=== PATIENT | male | born 1965 | race Caucasian/White ===

== ENCOUNTER 2024-04-29 10:01 | Inpatient (IN) | payer MEDICARE, MEDICAID, SELFPAY ==
[2024-04-29] VITALS (16 sets, daily range): BP systolic 89–134; BP diastolic 49–80; PULSE 79–110; RESP 12–22; TEMP 34.7–36.4; O2SAT 82–100; BMI 31.4
--- NOTE | ~2024-04-29 | XR_ITS ---
CLINICAL HISTORY: ETT OGT placement 1 view chest x-ray Comparison: 05/05/2024 Findings: No new consolidation or effusion. Endotracheal tube is 1.5 cm above the andrew. Nasogastric tube tip is below the lower border of the image. The exam is otherwise unchanged. IMPRESSION: 1. No significant change from prior study. This document has been electronically signed by: Chan Baird MD on 05/13/2024 07:12:38
--- NOTE | ~2024-04-29 | XR_ITS ---
EXAMINATION: XR CHEST 1 VIEW HISTORY: ET tube placement, OG tube placement COMPARISON: Comparison is made with the prior examination dated 05/13/2024. FINDINGS: A single AP portable view of the chest performed at 9:35 AM is submitted. An endotracheal tube is noted with its tip approximately 4 cm above the andrew. An orogastric tube is again seen with its tip in the stomach. There are low lung volumes. There is elevation the right hemidiaphragm. There is subsegmental atelectasis at the right lung base. There is new opacification of the left lung base which represent atelectasis, pneumonia, or pleural fluid. There is no pneumothorax or pulmonary vascular congestion. The heart is normal in size. There is degenerative disc disease of the spine. XR/XR chest 1V IMPRESSION: 1. Lines and tubes in place as described. 2. Low lung volumes. New opacification of the left lung base which may represent atelectasis, pneumonia, or pleural fluid. Electronically signed by: Darin Portillo MD 05/16/2024 09:49 AM EDT
--- NOTE | ~2024-04-29 | US_ITS ---
EXAMINATION: US ABDOMEN LIMITED HISTORY: Transaminitis, altered mental status TECHNIQUE: Real-time grayscale ultrasound imaging of the right upper quadrant was performed and images were reviewed. COMPARISON: Correlation is made with an unenhanced CT of the abdomen performed earlier in the day. FINDINGS: Liver: The examination is limited by lack of patient cooperation. The liver appears enlarged and demonstrates diffusely increased echotexture, consistent with steatosis No focal mass or intrahepatic biliary ductal dilatation is identified. There is normal hepatopedal flow in the portal vein. Gallbladder and biliary tree: The gallbladder is unremarkable, without evidence of calculi, wall thickening, or pericholecystic fluid. The patient is sedated and evaluation for a sonographic Jones sign is not possible. The common bile duct is normal in caliber measuring 3 mm. Right Kidney: The right kidney measures 10.1 cm in length. The right kidney is unremarkable, without evidence of masses, hydronephrosis, or calculi. Pancreas: The pancreas is obscured by bowel gas. Abdominal aorta and inferior vena cava: The visualized portions of the abdominal aorta and inferior vena cava are normal in caliber. There is no free fluid in the right upper quadrant. US/US abdomen limited IMPRESSION: Limited examination. Hepatomegaly and hepatic steatosis. Electronically signed by: Darin Portillo MD 04/29/2024 02:27 PM EDT
--- NOTE | ~2024-04-29 | CT_ITS ---
EXAMINATION: CT ABDOMEN AND PELVIS WITHOUT CONTRAST CLINICAL INFORMATION: Hypoxia. Elevated liver enzymes. COMPARISON: None available. TECHNIQUE: Multidetector volumetric imaging was performed from the superior aspect of the liver through the pubic symphysis. Sagittal and coronal reformatted images were obtained on the technologist's workstation. This CT examination was performed using dose optimization techniques as appropriate, variously including the following: *Automated exposure control *Adjustment of mA and/or kV according to patient size (this includes techniques or standardized protocols for targeted exams where dose is matched to indication/reason for exam; i.e. extremities or head) *Use of iterative reconstruction technique. DLP: 1216 mGy centimeter. FINDINGS: Limited elevation of the intra-abdominal organs and vascular structures due to lack of IV contrast. Limited by patient's motion artifact. LUNG BASES: Patchy and confluent attenuation, right lower lung lobe and right middle lobe. LIVER, GALLBLADDER, AND BILIARY TREE: Liver measures 23 cm with decreased attenuation. No intrahepatic biliary ductal dilatation. Gallbladder is dense. No pericholecystic fluid collection or gallbladder wall thickening. No extrahepatic biliary ductal dilatation. PANCREAS: No peripancreatic fluid collection. No main pancreatic ductal dilatation. Punctate calcification in the inferior head of the pancreas. SPLEEN: 6 cm. ADRENAL GLANDS: No nodular lesions. KIDNEYS AND URETERS: No hydronephrosis. No nephrolithiasis. BLADDER: Fluid-filled. GASTROINTESTINAL TRACT: Stool within the large intestine. Few scattered diverticula in the left hemicolon. No intestinal obstruction pattern. No ascites. No pneumatosis intestinalis. No pneumoperitoneum. Appendix is normal. ABDOMINAL WALL: Fat-containing umbilical hernia and small periumbilical fat-containing hernia. LYMPH NODES: Nonspecific prominent lymph nodes in the retroperitoneum and nikhil iliac. VASCULAR: Calcified plaques throughout the abdominal aorta wall and iliac arteries without gross aneurysm. Calcified plaques in the coronary arteries. PELVIC VISCERA: Inadequate evaluation. OSSEOUS STRUCTURES: Multilevel thoracolumbar spondylosis with a shaped curvature apex at L3-4. Multilevel central spinal canal stenosis in the lower lumbar spine on a multifactorial basis degenerative changes in the coxofemoral joints.. CT/CT abdomen pelvis wo IV con IMPRESSION: Concerning multifocal pneumonia right lung. Hepatomegaly and steatosis. Diverticular disease, sigmoid colon. Fat-containing umbilical hernia. Coronary artery disease and atherosclerosis disease. Probable vicarious contrast in the gallbladder. Fleischner guidelines were followed. Electronically signed by: Luis Fernando Bah MD 04/29/2024 01:54 PM EDT RP
--- NOTE | ~2024-04-29 | XR_ITS ---
EXAMINATION: XR CHEST 1 VIEW HISTORY: ogt placement COMPARISON: Comparison is made with the prior examination dated 04/30/2024. FINDINGS: A single AP portable view of the chest performed at 10:02 AM is submitted. An endotracheal tube is again noted and is unchanged in position. An orogastric tube is in place with its tip and sidehole below the diaphragm. There are low lung volumes. There has been improvement in patchy airspace opacity in the right upper and mid lung zones. There is linear subsegmental atelectasis at the right lung base. Minimal patchy opacities at the left lung base are unchanged. There is no pneumothorax. The heart is normal in size. There is degenerative disc disease of the spine. XR/XR chest 1V IMPRESSION: 1. Lines and tubes in place as described. 2. Improvement in patchy opacity in the right mid to upper lung zone. 3. Right basilar subsegmental atelectasis. Minimal patchy opacity at the left lung base. Electronically signed by: Darin Portillo MD 05/03/2024 10:23 AM EDT
--- NOTE | ~2024-04-29 | US_ITS ---
CLINICAL HISTORY: R>L edema Venous duplex ultrasound bilateral upper extremity Comparison: None Findings: Accessible deep venous segments are fully compressible with normal Doppler color flow and spectral tracings. IMPRESSION: 1. Negative for bilateral upper extremity deep vein thrombosis. This document has been electronically signed by: Santos Carr MD on 05/18/2024 06:52:30
--- NOTE | ~2024-04-29 | XR_ITS ---
EXAMINATION: XR CHEST CLINICAL INFORMATION: intubated COMPARISON: 05/20/2024. TECHNIQUE: Frontal view of the chest was obtained. FINDINGS: Endotracheal tube remains in good position. Enteric tube remains in good position. Cardiomegaly, with borders obscured. Low lung volumes persist with elevated right hemidiaphragm. Basilar linear opacities right greater than left, unchanged. Aerated lungs similar, with perhaps mild interstitial edema. Prominence of the central pulmonary vasculature. No perceptible pneumothorax. XR/XR chest 1V IMPRESSION: Lines and tubes in good position. No interval change in lung volumes with stable pulmonary abnormalities, predominantly consisting of mild interstitial edema with bibasilar consolidations. Electronically signed by: Henry Robles MD 05/26/2024 10:20 AM EDT
--- NOTE | ~2024-04-29 | CT_ITS ---
EXAMINATION: CT HEAD WITHOUT CONTRAST CLINICAL INFORMATION: fall head strike COMPARISON: None available. TECHNIQUE: Contiguous axial imaging was performed from the skull base to vertex without intravenous administration of contrast. This CT examination was performed using dose optimization techniques as appropriate, variously including the following: *Automated exposure control *Adjustment of mA and/or kV according to patient size (this includes techniques or standardized protocols for targeted exams where dose is matched to indication/reason for exam; i.e. extremities or head) *Use of iterative reconstruction technique DLP: 1747 mGy-cm FINDINGS: Limited by patient's motion artifact. Acquisition of the brain in segments. No gross acute intracranial hemorrhage, mass effect, midline shift, hydrocephalus or herniation. Forrest-white matter differentiation is normal. No gross hematoma is in the intraconal or extraconal compartments of the orbits. The bony calvarium appears intact. The skull base appears intact. No air-fluid levels in the paranasal sinuses. Tympanic cavities and mastoid cells are aerated. CT/CT head/brain wo IV con IMPRESSION: No acute fracture or bony calvarium. No acute intracranial hemorrhage. Electronically signed by: Luis Fernando Bah MD 04/29/2024 11:46 AM EDT
--- NOTE | ~2024-04-29 | CT_ITS ---
CLINICAL HISTORY: hypoxia CT chest without IV contrast. COMPARISON: XR chest dated 05/20/24 at 16:[address] chest dated 04/29/24 at 12:58 EDT FINDINGS: Endotracheal tube terminates 4.0 cm above the andrew. Enteric tube extends into the abdomen with tip in the distal gastric antrum. No supraclavicular or axillary lymphadenopathy. Elevation of the right hemidiaphragm. Main pulmonary artery is enlarged measuring up to 3.6 cm. This can be associated with pulmonary hypertension. Coronary artery calcifications present within the LAD, circumflex and RCA. Cardiomegaly. No pericardial effusion. Multiple normal-sized mediastinal lymph nodes. Small bilateral pleural effusion with overlying atelectatic collapse of the lower lobes bilaterally. Mild emphysema of the lung apices. Hepatic steatosis. Flowing marginal osteophytes present throughout the thoracic spine. Stable bone island within the T9 vertebral body. IMPRESSION: 1. Small bilateral pleural effusions with overlying complete atelectatic collapse of the lower lobes bilaterally. 2. Cardiomegaly with coronary artery atherosclerosis. Enlarged main pulmonary artery can be associated with pulmonary hypertension. This document has been electronically signed by: Lior Shahid MD on 05/21/2024 16:10:56
--- NOTE | ~2024-04-29 | CT_ITS ---
EXAMINATION: CT CERVICAL SPINE WITHOUT CONTRAST CLINICAL INFORMATION: Status post fall. Facial injury. COMPARISON: None available. TECHNIQUE: Contiguous axial images through the cervical spine using 3 mm collimation with bone and soft tissue algorithm. Sagittal and coronal reformatted images acquired. This CT examination was performed using dose optimization techniques as appropriate, variously including the following: *Automated exposure control *Adjustment of mA and/or kV according to patient size (this includes techniques or standardized protocols for targeted exams where dose is matched to indication/reason for exam; i.e. extremities or head) *Use of iterative reconstruction technique DLP: 556 mGy centimeter. FINDINGS: Limited by patient's motion artifact. Craniocervical junction is intact. Degenerative changes in the periodontal C1 region. Syndesmophyte formation and marginal osteophyte formation resulting in incomplete ankylosis at C5-6. Decreased intervertebral disc height and subchondral cyst formation and endplate sclerosis with marginal osteophyte formation at C5-6. Reverse curvature apex at C4-5. 1 mm anterolisthesis C3-4 likely degenerative. C1 is intact. C2 is intact. C3 is intact. Facet joint hypertrophy. C4 is intact. Right-sided facet joint hypertrophy. C5 is intact. C6 is intact. C7 is intact. No gross prevertebral compartment hematoma. Multilevel central spinal canal stenosis at C4-5 C5-6 levels. Calcified plaques in the carotic arteries. Tympanic cavities and mastoid air cells are aerated. CT/CT cervical spine wo IV con IMPRESSION: Multilevel cervical spondylosis without acute fracture or trauma-related listhesis. Fleischner guidelines were followed. Electronically signed by: Luis Fernando Bah MD 04/29/2024 11:52 AM EDT
--- NOTE | ~2024-04-29 | XR_ITS ---
CLINICAL HISTORY: Intubated and OGT placement 1 view chest x-ray Comparison: Chest x-ray from 04/29/2024 Findings: The endotracheal tube terminates in the midthoracic trachea. Mild mediastinal widening is nonspecific and likely accentuated by AP technique with partial obscuration of the heart borders. New moderate to severe airspace disease of the likely due to pneumonia, right worse than left. Small right pleural effusion noted. No definite pneumothorax in the portable image. Degenerative changes include imaged shoulders and AC joints. IMPRESSION: 1. Endotracheal tube terminates in the midthoracic trachea. 2. Pulmonary opacities concerning for pneumonia, particularly in the right lung. 3. Small right pleural effusion. This document has been electronically signed by: Aldair Thompson MD on 04/30/2024 23:27:01
--- NOTE | ~2024-04-29 | CT_ITS ---
EXAMINATION: CT CHEST WITHOUT IV CONTRAST INDICATION: hypoxia COMPARISON: Correlation is made with an AP portable view of the chest performed earlier in the day. TECHNIQUE: Helical CT scan of the chest was performed without intravenous contrast. Coronal and sagittal reformatted images were generated and reviewed. This CT exam was performed with one or more of the following dose reduction techniques: automated exposure control, adjustment of the mA and/or kV according to patient size, use of iterative reconstruction technique. DLP: 593 mGy-cm CHEST: THYROID: The thyroid is unremarkable. LUNGS: There is moderate patient motion. There is marked elevation of the right hemidiaphragm. There is adjacent linear subsegmental atelectasis. There is a patchy groundglass opacity at the left lung apex which may be inflammatory in nature. MEDIASTINUM: There is no mediastinal lymphadenopathy. ALAINA: Evaluation of the hilar regions is limited by lack of intravenous contrast material. CARDIOVASCULATURE: The heart is normal in size. There is no pericardial effusion. The thoracic aorta is normal in caliber. DEGREE OF CORONARY CALCIFICATION: moderate PLEURA: There is no pleural effusion. No pneumothorax. MAIN AIRWAYS: The mainstem bronchi and proximal branches are patent. AXILLA: There is no axillary lymphadenopathy. BONES AND SOFT TISSUES: There is degenerative disc disease of the spine. A sclerotic focus in the T9 vertebral body may represent a bone island. UPPER ABDOMEN: The visualized portion of the liver demonstrates markedly decreased attenuation, consistent with steatosis. The visualized portions of the spleen and adrenals have an unremarkable unenhanced appearance. CT/CT chest wo IV con IMPRESSION: 1. Marked elevation of the right hemidiaphragm with adjacent subsegmental atelectasis. 2. Patchy groundglass opacity at the left lung apex may be inflammatory in nature. 3. Hepatic steatosis. Electronically signed by: Darin Portillo MD 04/29/2024 02:45 PM EDT
--- NOTE | ~2024-04-29 | XR_ITS ---
EXAMINATION: XR CHEST CLINICAL INFORMATION: Confirmation of OGT and ETT Placement COMPARISON: 05/16/2024. TECHNIQUE: Frontal view of the chest was obtained. FINDINGS: Endotracheal tube is in good position approximately 3 cm proximal to the andrew. There are 2 is well positioned, with the tip and sidehole in the stomach. The cardiac, hilar, and mediastinal contours are normal. Low lung volumes, with patchy opacities in both lower lungs with possible small left effusion. No perceptible pneumothorax. No focal osseous or soft tissue abnormality. XR/XR chest 1V IMPRESSION: 1. Well-positioned endotracheal and enteric tubes. 2. No interval change in low lung volumes, small left effusion, and bilateral lower lung opacities. Electronically signed by: Henry Robles MD 05/20/2024 04:46 PM EDT
--- NOTE | ~2024-04-29 | XR_ITS ---
EXAMINATION: XR CHEST 1 VIEW HISTORY: pneumonia COMPARISON: Comparison is made with the prior examination dated 05/03/2024. FINDINGS: A single AP portable view of the chest performed at 9:12 AM is submitted. Endotracheal and orogastric tubes are unchanged in position. Again seen is elevation of the right hemidiaphragm. There is linear subsegmental atelectasis at both lung bases. There is no pleural effusion, pneumothorax, or pulmonary vascular congestion. The heart is normal in size. There is degenerative disc disease of the spine. XR/XR chest 1V IMPRESSION: 1. Lines and tubes in place without change. 2. Elevated right hemidiaphragm with bibasilar subsegmental atelectasis. Electronically signed by: Darin Portillo MD 05/05/2024 09:31 AM EDT
--- NOTE | ~2024-04-29 | CT_ITS ---
EXAMINATION: CT FACIAL BONES WITHOUT CONTRAST CLINICAL INFORMATION: Status post fall. Facial injury. COMPARISON: None available. TECHNIQUE: Contiguous axial images through the maxillofacial bones using 3 mm collimation with bone and soft tissue algorithm. Sagittal and coronal reformatted images acquired. This CT examination was performed using dose optimization techniques as appropriate, variously including the following: *Automated exposure control *Adjustment of mA and/or kV according to patient size (this includes techniques or standardized protocols for targeted exams where dose is matched to indication/reason for exam; i.e. extremities or head) *Use of iterative reconstruction technique. DLP: 500 mGy centimeter. FINDINGS: Limited by patient's motion artifact. There is a nasal septum defect. No acute cortical disruption in the nasal bones 4 vomer. The orbits are intact. No gross intraconal or extraconal compartment hematoma. The eyeballs are intact. The zygomatic arcs are intact. The maxilla and pterygoid plates are intact. The mandible is intact. Edentulous. No air-fluid levels in the included paranasal sinuses. Tympanic cavities and mastoid cells are aerated. Calcified plaques in the carotic arteries. CT/CT facial bones wo IV con IMPRESSION: No acute maxillofacial bone fracture. Nasal septum defect which could be seen in drug user Electronically signed by: Luis Fernando Bah MD 04/29/2024 01:46 PM EDT
--- NOTE | ~2024-04-29 | MR_ITS ---
EXAMINATION: MR BRAIN WITHOUT CONTRAST CLINICAL INFORMATION: Persistent encephalopathy. COMPARISON: No prior. Correlation made with CT head 04/29/2024. TECHNIQUE: MRI of the brain was obtained using routine sequences without contrast. Examination performed on a Siemens 1.5 Delma high-field scanner. FINDINGS: There is motion artifact on multiple pulsing sequences. This limits the sensitivity of the study. There is no diffusion restriction. There is no intracranial hemorrhage, acute infarction, mass effect, or edema. Ventricles, sulci, and cisterns are normal in size and configuration for patient age. No shift of midline. No abnormal hemosiderin deposition is identified. There are a few scattered punctate and minimally confluent foci of white matter T2 hyperintensity in the periventricular, subcortical, and hemispheric deep white matter, nonspecific. Midline structures appear normally formed. Partial empty sella. Posterior fossa structures appear normal. Cerebellar tonsils are appropriately located. Major flow voids are preserved within the skull base. The globes and orbital contents demonstrate increased CSF within optic nerve sheath complexes. Mild mucosal thickening seen throughout the ethmoid and maxillary sinuses. Fluid in the posterior nasopharynx, nonspecific in the setting of intubation. There are bilateral mastoid and middle ear effusions. Endotracheal tube and enteric tube course through the oropharynx. Extracranial soft tissues demonstrate no abnormalities. No suspicious bone marrow changes are evident. Atlantoaxial joint is normal. MR/MR head/brain wo con IMPRESSION: 1. Somewhat motion limited exam. 2. No evidence of intracranial hemorrhage, acute infarction, mass effect, or edema. 3. Increased CSF in the optic nerve sheath complexes, finding which can be associated with increased intracranial pressure. 4. Mild changes of small vessel ischemia. 5. Bilateral mastoid and middle ear effusions. Electronically signed by: Henry Robles MD 05/19/2024 03:19 PM EDT
--- NOTE | ~2024-04-29 | XR_ITS ---
EXAMINATION: XR CHEST CLINICAL INFORMATION: sob hypoxia COMPARISON: None available. TECHNIQUE: Frontal view of the chest was obtained. FINDINGS: Linear opacities right lower hemithorax. Low lung volume. Elevated right hemidiaphragm. No pneumothorax. Prominence of the interstitial markings. Cardiomediastinal silhouette size is normal. Calcified plaque thoracic aorta. Multilevel thoracic spondylosis.. XR/XR chest 1V IMPRESSION: Mild interstitial lung edema in the correct clinical settings. Superimposed acute small airway disease in the correct clinical settings. Elevated right hemidiaphragm. Electronically signed by: Luis Fernando Bah MD 04/29/2024 11:10 AM EDT
[2024-04-29 10:20] LABS: Glucose, Whole Blood 147 mg/dL (60-115)
--- NOTE | 2024-04-29 10:24 | ECG_ITS ---
Test Reason : sepsis Blood Pressure : */* mmHG Vent. Rate : 80 BPM Atrial Rate : 80 BPM P-R Int : 192 ms QRS Dur : 92 ms QT Int : 358 ms P-R-T Axes : 72 36 -11 degrees QTcB Int : 412 ms Normal sinus rhythm Inferior infarct , age undetermined Abnormal ECG No previous ECGs available Referred By: Kvng Marroquin Electronically Signed By: Ambrosio Dodd
[2024-04-29 10:40] LABS: MANUAL DIFF FLAG NO
[2024-04-29 10:44] LABS: VBG Base Excess 0.7 mmol/L; VBG HCO3 29 mmol/L (22-26); VBG pCO2 64 mmHg; VBG pH 7.26 (7.32-7.43); VBG pO2 31 mmHg
[2024-04-29 10:44] LABS: Venous Blood Gas Refer to POC result
[2024-04-29 10:44] LABS: Basophils Percent Auto 0.4 % (0-2); Hematocrit 39.2 % (42.0-52.0); Hemoglobin 14.1 g/dl (14.0-18.0); Imm Gran Abs Auto 0.03 X10*3/uL (0.00-0.03); Imm Gran Pct Auto 0.5 % (0.0-0.4); Lymphocytes Absolute Auto 0.9 X10*3/uL (1.2-4.9); Lymphocytes Percent Auto 15.4 % (20-40); Mean Corpuscular Hemoglobin 33.4 pg (27.0-33.0); Mean Corpuscular Volume 92.9 fL (80.0-98.0); Mean Platelet Volume 9.9 fL (9.4-12.4); Monocytes Absolute Auto 0.4 X10*3/uL (0.1-1.2); Monocytes Percent Auto 7.4 % (2-11); Neutrophils Absolute Auto 4.2 x10*3/uL (2.0-8.3); Neutrophils Percent Auto 76.3 % (45-73); Platelet Count 148 X10*3/uL (160-400); Red Blood Count 4.22 X10*6/uL (4.60-5.80); Red Cell Distribution Width 15.6 % (11.0-16.0); White Blood Count 5.5 X10*3/uL (4.8-10.8)
[2024-04-29] MEDS: LORazepam 2 MG/ML VIAL 1 MG IVPUSH ×2 (10:46→13:28)
[2024-04-29] MEDS: cefTRIAXone sodium 1 GM VIAL IVPUSH (10:46)
[2024-04-29 10:55] LABS: Ethanol 70 mg/dL; INTERNATIONAL NORM RATIO 1.4 (0.9-1.1); Prothrombin Time 16.6 SEC (10.9-12.4)
[2024-04-29 10:56] LABS: Alanine Aminotransferase 266 U/L (0-40); Albumin Level 3.4 g/dL (3.5-5.0); Alkaline Phosphatase 807 U/L (39-117); Anion Gap 16 (12-20); Aspartate Amino Transferase 670 U/L (5-37); Bilirubin Total 1.5 mg/dL (0.0-1.0); Blood Urea Nitrogen 75 mg/dL (9-16); Carbon Dioxide 27 mmol/L (22-29); Chloride 84 mmol/L (96-108); Creatinine Clr Calc Pharmacy 30.3; Estimated Glomerular Filt Rate 21; Glucose Random 142 mg/dL (60-115); Magnesium 2.3 mg/dL (1.6-2.6); Potassium 4.7 mmol/L (3.3-5.1); Sodium 122 mmol/L (135-145); Total Protein 7.4 g/dL (6.5-8.0)
--- NOTE | 2024-04-29 11:14 | PC.NURSE ---
Pt A+OX3 on arrival to ER; shaking uncontrollably; denies hx of ETOH withdrawal sx's and last drink reported as yesterday; pt reports feeling off for several days, weak and tired; pt reports that he has been eating and doesn't know why poc BG was so low (45); POC BG 147 on arrival in ER; rectal temp 94.5 and pt has cold extremities; 82% RA CATRACHITA@; pt placed on 3 ltr NC with SAO2 now 98%; pCO2 45; Bare Hugger placed on pt on High setting; rectal temp probe in place; BP stable and no IVF's ordered at this time; will cont to monitor/tx per orders
[2024-04-29 11:20] LABS: Lactic Acid 2.6 mmol/L (0.5-2.0)
[2024-04-29] MEDS: SODIUM CHLORIDE 2976 ML IV (12:05)
--- NOTE | 2024-04-29 12:15 | PC.NURSE ---
Unable to pass a temp-sensing catheter; pt states he has a hx of surgery on his prostate; condom catheter applied at this time; IVF's started per orders; temp 96.2 per rectal probe
--- NOTE | 2024-04-29 12:37 | ED.GENADULT ---
HPI - General Adult General Chief complaint: Fall Stated complaint: HYPOGLYCEMIA, FALL, LOW O2 PER EMS Time Seen by Provider: 04/29/24 11:20 Source: patient and EMS Mode of arrival: EMS Limitations: altered mental status History of Present Illness ED Provider: JULIET Marroquin HPI narrative: This is a 58-year-old male history of alcohol use disorder with withdrawals, obesity, diabetes, hypertension, hyperlipidemia who presents via ambulance for fall, shaking, feeling cold and weak. According to EMS he was 82% on room air and he was put on 4 L nasal cannula and O2 improved to 98%. He was also noted to be hypoglycemic with a blood glucose of 45. He was given 15 g of oral glucose and 12.5 g of IV push dextrose by EMS. On arrival to the ED patient was able to answer yes or no questions however was not able to answer complex questions. He dozes off mid conversation. He is unable to provide a history. His family members at the bedside tell me that patient has been drinking monica large amounts of it unclear when his last drink of monica was however he reported to EMS that he has a beer earlier today. There has been no seizure-like activity while in the emergency department or if this morning that has been reported. Does have a history of alcohol withdrawal. When I ask family members if this is normal for him they say yes, but not this bad . Unable to obtain an accurate history from patient or review of systems Related Data Home Medications ?Medication ?Instructions ?Recorded ?Confirmed acamprosate 333 mg tablet,delayed 333 mg PO DAILY 04/29/24 release amlodipine 10 mg tablet 10 mg PO DAILY 04/29/24 clonidine HCl 0.1 mg tablet 0.1 mg PO BID 04/29/24 empagliflozin 10 mg tablet 10 mg PO DAILY 04/29/24 (Jardiance) fluticasone 250 mcg-salmeterol 50 1 ea inhalation BID 04/29/24 mcg/dose blistr powdr for inhalation fluticasone propionate 50 1 spray intranasal DAILY 04/29/24 mcg/actuation nasal spray,suspension glimepiride 4 mg tablet 4 mg PO DAILY 04/29/24 levothyroxine 200 mcg tablet 200 mcg PO DAILY 04/29/24 losartan 50 mg-hydrochlorothiazide 1 tab PO DAILY 04/29/24 12.5 mg tablet metformin 500 mg tablet 500 mg PO BID 04/29/24 metoprolol succinate 100 mg 100 mg PO DAILY 04/29/24 tablet,extended release 24 hr mometasone 0.1 % topical cream 1 appl topical DAILY 04/29/24 montelukast 10 mg tablet 10 mg PO DAILY 04/29/24 omeprazole 20 mg capsule,delayed 20 mg PO DAILY 04/29/24 release pregabalin 75 mg capsule 75 mg PO BID 04/29/24 sertraline 100 mg tablet 100 mg PO DAILY 04/29/24 tamsulosin 0.4 mg capsule 0.4 mg PO DAILY 04/29/24 Allergies Allergy/AdvReac Type Severity Reaction Status Date / Time No Known Allergies Allergy Verified 04/29/24 10:55 Review of Systems Review of Systems: Yes all other systems are reviewed and are negative and Unobtainable due to mental status PMFSH Past Medical History Attestation statement: The following information was validated with the patient. Source: old records reviewed and nursing notes reviewed Social History Social History Alcohol intake: current Alcohol intake frequency: 3 or more drinks per day Alcohol type: beer Smoked in Last 30 Days: Yes Use of substances other than those prescribed or required for medical reasons: No Advance Directives: No Advance Directives Information Provided: Yes Do you have a plan to hurt others: No Plan Physical Exam ED Vital Signs: Vital Signs - 24 hr 04/29/24 10:50 04/29/24 11:10 04/29/24 12:13 Temperature 94.5 F L 94.5 F L 96.2 F L Pulse Rate 79 79 81 Respiratory Rate 22 H 22 H 19 Blood Pressure 113/78 113/78 90/69 Pulse Oximetry 82 L 82 L 98 Oxygen Delivery Method Room Air Room Air Oxygen Flow Rate 3 04/29/24 13:20 04/29/24 14:22 Temperature 97.6 F Pulse Rate 81 Respiratory Rate 14 Blood Pressure 111/56 L 96/65 Pulse Oximetry 96 Oxygen Delivery Method Nasal Cannula Oxygen Flow Rate 3 BMI result Body Mass Index 31.4 Patient hypoxic on room air, with soft pressures. Appearance: Patient responds to painful stimuli. No acute cardiopulmonary distress Head: Normocephalic, atraumatic, no step-offs or deformities + abrasions to face and knees Eyes: Pupils equal, round and reactive to light.? Neck: Normal inspection.? Neck supple.? CVS: Normal heart rate and rhythm.? Pulses normal.? Respiratory: No respiratory distress.? Breath sounds normal.? Abdomen: Soft and nontender.? Skin: Skin warm and dry.? Normal skin color.? Normal skin turgor.? Extremities: No lower extremity edema.? No calf ttp. 5/5 strength to bilateral upper and lower extremities Back: No midline tenderness, no C-spine tenderness, full range of motion, no CVA tenderness bilaterally Neuro: Patient responds to painful stimuli. No acute cardiopulmonary distress unable to perform neurological assessment as patient is barely responsive. Course Reevaluation(s) Reevaluation #1: CBC with no acute findings needing intervention. Chemistry with sodium of 122, IV fluids currently hanging. Patient noted to have an DARRELL BUN of 75, creatinine 3.09 again hanging IV fluids. Unclear if patient's baseline. His lactic acid is 2.6 this is likely secondary to alcohol intoxication. Transaminases elevated in a nearly 2-1 fashion likely secondary to chronic alcohol abuse/hepatitis. Troponin of 43 likely secondary to kidney injury unlikely due to ACS. Patient's coags unremarkable. Ethanol 70. Phenobarbital ordered. Time: 12:52 Reevaluation #2: Repeat lactic 2.7. Repeat troponin 33.9 not meeting tell the. Beta hydroxybutyrate normal. TSH still pending. CT abdomen and pelvis and chest concerning for multifocal pneumonia of the right lung. Hepatomegaly and steatosis. Diverticular disease. Fat containing umbilical hernia. Coronary artery disease and arthrosclerosis. Vicarious contrast in the galladder . No exquisite tenderness over the right upper quadrant. Ultrasound will be obtained. He is being covered with ceftriaxone will add azithromycin. Plan is for hospital admission Time: 14:12 Reevaluation #3: Patient will be admitted to the intensive care unit Time: 15:25 Medications Administered Generic Name Dose Route Start Last Admin Trade Name Freq PRN Reason Stop Dose Admin Azithromycin 500 mg/ Sodium 250 mls @ 125 mls/hr 04/29/24 14:08 04/29/24 14:49 Chloride IV 04/29/24 16:07 125 mls/hr ONCE ONE Administration Dextrose/Sodium Chloride 1,000 mls @ 50 mls/hr 04/29/24 14:45 04/29/24 14:53 D5ns IVCONT 50 mls/hr .Q20H MARKO Administration Discontinued Medications Generic Name Dose Route Start Last Admin Trade Name Fanny PRN Reason Stop Dose Admin Ceftriaxone Sodium 1 gm 04/29/24 10:26 04/29/24 10:46 Ceftriaxone Sodium 1 Gm Vial IVPUSH 04/29/24 10:27 1 gm ONCE ONE Administration Dextrose 25 gm 04/29/24 14:47 04/29/24 14:49 Dextrose 50 % 25 Gm/50 Ml Syringe IVPUSH 04/29/24 14:48 25 gm ONCE ONE Administration Heparin Sodium (Porcine) 5,000 unit 04/29/24 15:00 04/29/24 14:49 Heparin Sodium,Porcine 5,000 Unit/Ml Vial SUBCUT 5,000 unit Q12H MARKO Administration Sodium Chloride 2,976 mls @ 2,976 mls/hr 04/29/24 11:22 04/29/24 13:05 Ns 30 ml/kg infuse over 1 hr (2976 ml) 04/29/24 12:21 Infused IV Infusion .Q1H STA Sodium Chloride 1,000 mls @ 999 mls/hr 04/29/24 13:00 04/29/24 13:29 Ns IV 04/29/24 14:00 999 mls/hr .Q1H1M MARKO Administration Sodium Chloride 1,000 mls @ 100 mls/hr 04/29/24 14:30 04/29/24 14:53 Ns IVCONT Not Given .Q10H MARKO Lorazepam 1 mg 04/29/24 10:26 04/29/24 10:46 Lorazepam 2 Mg/Ml Vial IVPUSH 04/29/24 10:27 1 mg STAT STA Administration Lorazepam 1 mg 04/29/24 12:45 04/29/24 13:28 Lorazepam 2 Mg/Ml Vial IVPUSH 04/29/24 12:46 1 mg STAT STA Administration Phenobarbital Sodium 440 mg 04/29/24 13:00 04/29/24 13:29 Phenobarbital Sodium 130 Mg/Ml Im Once IM 04/29/24 13:01 440 mg ONCE ONE Administration Protocol Medical Decision Making Medical Decision Making MDM Narrative: 58-year-old male presents with altered mental status, weakness status post fall. Physical exam abrasions to face and knees. Regular rate and rhythm. Lungs clear. Abdomen soft nontender nondistended. Patient only responsive to pain and intermittently answering yes or no questions. I am concerned for intracranial hemorrhage. Also concerned for alcohol intoxication and possible withdrawal. Will rule out metabolic derangements. I do not suspect HHS, DKA. Will rule out UTI. Will also rule out traumatic injury to face, chest, abdomen and pelvis. Will rule out trauma to chest, abdomen and pelvis. Due to kidney function will hold on IV contrast Plan labs, imaging, urine Due to vital signs, elevated lactic acid I did cover with empiric antibiotics and a 30 cc/kilos bolus. Differential Diagnosis Differential Diagnoses: The differential diagnosis associated with the presentation includes (I am concerned for intracranial hemorrhage. Also concerned for alcohol intoxication and possible withdrawal. Will rule out metabolic derangements. I do not suspect HHS, DKA. Will rule out UTI. Will also rule out traumatic injury to face, chest, abdomen and pelvis.) Admission/Observation Consideration of admission/observation: Escalation of care including admission/observation considered Lab Data 04/29/24 10:33 04/29/24 10:33 Labs: Lab Results 04/29/24 04/29/24 04/29/24 Range/Units 10:16 10:33 10:39 WBC 5.5 (4.8-10.8) X10*3/uL RBC 4.22 L (4.60-5.80) X10*6/uL Hgb 14.1 (14.0-18.0) g/dl Hct 39.2 L (42.0-52.0) % MCV 92.9 (80.0-98.0) fL MCH 33.4 H (27.0-33.0) pg MCHC 36.0 (31.0-36.0) g/dl RDW 15.6 (11.0-16.0) % Plt Count 148 L (160-400) X10*3/uL MPV 9.9 (9.4-12.4) fL Immature Gran % (Auto) 0.5 H (0.0-0.4) % Neut % (Auto) 76.3 H (45-73) % Lymph % (Auto) 15.4 L (20-40) % Daniels % (Auto) 7.4 (2-11) % Eos % (Auto) 0.0 (0-4) % Baso % (Auto) 0.4 (0-2) % Lymph # (Auto) 0.9 L (1.2-4.9) X10*3/uL Daniels # (Auto) 0.4 (0.1-1.2) X10*3/uL Eos # (Auto) 0.0 (0.0-0.4) X10*3/uL Baso # (Auto) 0.0 (0.0-0.2) X10*3/uL Abs Immat Gran (auto) 0.03 (0.00-0.03) X10*3/uL Absolute Neuts (auto) 4.2 (2.0-8.3) x10*3/uL Absolute Nucleated RBC 0.000 (0.0-0.012) X10*3/uL Nucleated RBC % (auto) 0.0 (0.0-0.2) /100WBC PT 16.6 H (10.9-12.4) SEC INR 1.4 H (0.9-1.1) VBG pH 7.26 L (7.32-7.43) VBG pCO2 64 mmHg VBG pO2 31 mmHg VBG HCO3 29 H (22-26) mmol/L VBG O2 Saturation 40.0 % VBG Base Excess 0.7 mmol/L Sodium 122 L (135-145) mmol/L Potassium 4.7 (3.3-5.1) mmol/L Chloride 84 L (96-108) mmol/L Carbon Dioxide 27 (22-29) mmol/L Anion Gap 16 (12-20) BUN 75 H (9-16) mg/dL Creatinine 3.09 H (0.5-1.4) mg/dL Estim Creat Clear Calc 30.3 Estimated GFR 21 POC Glucose 147 H (60-115) mg/dL Random Glucose 142 H (60-115) mg/dL Lactic Acid 2.6 H* (0.5-2.0) mmol/L Lactic Acid F/U @ 2Hr (0.5-2.0) mmol/L Calcium 8.0 L (8.4-10.2) mg/dL Magnesium 2.3 (1.6-2.6) mg/dL Total Bilirubin 1.5 H (0.0-1.0) mg/dL AST 670 H (5-37) U/L ALT 266 H (0-40) U/L Alkaline Phosphatase 807 H (39-117) U/L Total Creatine Kinase 505 H (38-174) U/L Troponin I High Sens 43.0 H (<3.5-35.0) ng/L Total Protein 7.4 (6.5-8.0) g/dL Albumin 3.4 L (3.5-5.0) g/dL Beta-Hydroxybutyrate (0.02-0.27) mmol/L TSH (0.32-4.0) uIU/mL Urine Color Urine Appearance Urine pH (5.0-9.0) Ur Specific [place] (1.005-1.025) Urine Protein (Neg-Trace) mg/dL Urine Glucose (UA) (Negative) mg/dL Urine Ketones (Negative) mg/dL Urine Blood (Negative) Urine Nitrite (Negative) Ur Leukocyte Esterase (Negative) Urine RBC (0-2) /HPF Urine WBC (0-5) /HPF Ur Squamous Epith Cells (0-2) /HPF Urine Bacteria (None Seen) Hyaline Casts (0-2) /LPF Granular Casts Urine Opiates Screen (Not Detect) Ur Buprenorphine Scrn (Not Detect) ng/mL Ur Oxycodone Screen (Not Detect) ng/mL Urine Methadone Screen (Not Detect) ng/mL Urine Fentanyl Screen (Not Detect) Ur Barbiturates Screen (Not Detect) Ur Phencyclidine Scrn (Not Detect) Ur Amphetamines Screen (Not Detect) U Benzodiazepines Scrn (Not Detect) Urine Cocaine Screen (Not Detect) U Marijuana (THC) Screen (Not Detect) Ethyl Alcohol 70 mg/dL 04/29/24 04/29/24 04/29/24 Range/Units 13:25 13:25 13:39 WBC (4.8-10.8) X10*3/uL RBC (4.60-5.80) X10*6/uL Hgb (14.0-18.0) g/dl Hct (42.0-52.0) % MCV (80.0-98.0) fL MCH (27.0-33.0) pg MCHC (31.0-36.0) g/dl RDW (11.0-16.0) % Plt Count (160-400) X10*3/uL MPV (9.4-12.4) fL Immature Gran % (Auto) (0.0-0.4) % Neut % (Auto) (45-73) % Lymph % (Auto) (20-40) % Daniels % (Auto) (2-11) % Eos % (Auto) (0-4) % Baso % (Auto) (0-2) % Lymph # (Auto) (1.2-4.9) X10*3/uL Daniels # (Auto) (0.1-1.2) X10*3/uL Eos # (Auto) (0.0-0.4) X10*3/uL Baso # (Auto) (0.0-0.2) X10*3/uL Abs Immat Gran (auto) (0.00-0.03) X10*3/uL Absolute Neuts (auto) (2.0-8.3) x10*3/uL Absolute Nucleated RBC (0.0-0.012) X10*3/uL Nucleated RBC % (auto) (0.0-0.2) /100WBC PT (10.9-12.4) SEC INR (0.9-1.1) VBG pH (7.32-7.43) VBG pCO2 mmHg VBG pO2 mmHg VBG HCO3 (22-26) mmol/L VBG O2 Saturation % VBG Base Excess mmol/L Sodium (135-145) mmol/L Potassium (3.3-5.1) mmol/L Chloride (96-108) mmol/L Carbon Dioxide (22-29) mmol/L Anion Gap (12-20) BUN (9-16) mg/dL Creatinine (0.5-1.4) mg/dL Estim Creat Clear Calc Estimated GFR POC Glucose (60-115) mg/dL Random Glucose (60-115) mg/dL Lactic Acid (0.5-2.0) mmol/L Lactic Acid F/U @ 2Hr 2.7 H* (0.5-2.0) mmol/L Calcium (8.4-10.2) mg/dL Magnesium (1.6-2.6) mg/dL Total Bilirubin (0.0-1.0) mg/dL AST (5-37) U/L ALT (0-40) U/L Alkaline Phosphatase (39-117) U/L Total Creatine Kinase (38-174) U/L Troponin I High Sens 35.3 H 33.9 (<3.5-35.0) ng/L Total Protein (6.5-8.0) g/dL Albumin (3.5-5.0) g/dL Beta-Hydroxybutyrate 0.12 (0.02-0.27) mmol/L TSH 0.73 (0.32-4.0) uIU/mL Urine Color Yellow Urine Appearance Clear Urine pH 5.0 (5.0-9.0) Ur Specific [place] 1.015 (1.005-1.025) Urine Protein 30 (1+) H (Neg-Trace) mg/dL Urine Glucose (UA) Negative (Negative) mg/dL Urine Ketones Negative (Negative) mg/dL Urine Blood Small (1+) H (Negative) Urine Nitrite Negative (Negative) Ur Leukocyte Esterase Negative (Negative) Urine RBC 0-2 (0-2) /HPF Urine WBC 0-5 (0-5) /HPF Ur Squamous Epith Cells 0-2 (0-2) /HPF Urine Bacteria None Seen (None Seen) Hyaline Casts 3-5 (0-2) /LPF Granular Casts Present Urine Opiates Screen Not Detected (Not Detect) Ur Buprenorphine Scrn Not Detected (Not Detect) ng/mL Ur Oxycodone Screen Not Detected (Not Detect) ng/mL Urine Methadone Screen Not Detected (Not Detect) ng/mL Urine Fentanyl Screen Not Detected (Not Detect) Ur Barbiturates Screen Not Detected (Not Detect) Ur Phencyclidine Scrn Not Detected (Not Detect) Ur Amphetamines Screen Not Detected (Not Detect) U Benzodiazepines Scrn Not Detected (Not Detect) Urine Cocaine Screen Not Detected (Not Detect) U Marijuana (THC) Screen Not Detected (Not Detect) Ethyl Alcohol mg/dL Critical Care Time Critical Care Time Critical Care Time: Yes Total Critical Care Time: 35 Attestation: I attest to this time spent taking care of the patient, obtaining history, physical, reviewing labs, imaging, treatment of patients condition +/- specialist/hospitalist consult +/- procedure Discharge Plan Discharge Clinical Impression: Sepsis, Pneumonia, Alcohol abuse with withdrawal Patient Disposition: Still a Patient
[2024-04-29 12:41] LABS: Reflex Lactate? Lactic Acid Added
[2024-04-29] MEDS: 0.9 % Sodium Chloride 1,000 ML 999 ML IV (13:29)
[2024-04-29] MEDS: PHENobarbitaL sodium 130 MG/ML IM ONCE 440 MG IM (13:29)
[2024-04-29 13:54] LABS: Appearance Urine Clear; Color Urine Yellow; Glucose Urine UA Negative (Negative); Leukocyte Esterase Urine Negative (Negative); Nitrite Urine Negative (Negative); Specific Gravity - Urine 1.015 (1.005-1.025); UMIC TRIGGER UACC YES; Urine Blood Small (1+) (Negative); Urine Ketones Negative (Negative); Urine Protein 30 (1+) mg/dL (Neg-Trace)
--- NOTE | 2024-04-29 13:55 | PC.NURSE ---
Pt very somnolent, unable to answer most questions at this time; this occurred after IVP Ativan gv per orders for ETOH withdrawal; pt was A+Ox2 on arrival to ER, unsure about date; Provider made aware of mental status at this time
[2024-04-29 13:56] LABS: Beta-Hydroxybutyrate 0.12 mmol/L (0.02-0.27); ~Lactic Acid-LAB USE ONLY 2.7 mmol/L (0.5-2.0)
[2024-04-29 13:58] LABS: Troponin-I High Sensitivity 33.9 ng/L (<3.5-35.0)
[2024-04-29 13:59] LABS: Troponin-I High Sensitivity 35.3 ng/L (<3.5-35.0)
[2024-04-29 14:06] LABS: Bacteria Urine None Seen (None Seen); Granular Casts Urine Present; RBC Urine 0-2 /HPF (0-2); Squamous Epithelial Cell Urine 0-2 /HPF (0-2); WBC Urine 0-5 /HPF (0-5)
[2024-04-29 14:13] LABS: TSH reflex Free T4 0.73 uIU/mL (0.32-4.0)
[2024-04-29 14:15] LABS: Amphetamine Screen Urine Not Detected (Not Detect); Barbiturates, Urine Not Detected (Not Detect); Benzodiazepines Screen Urine Not Detected (Not Detect); Buprenorphine Scr Not Detected (Not Detect); Cannabinoid Screen Urine Not Detected (Not Detect); Cocaine Screen Urine Not Detected (Not Detect); Fentanyl, urine Not Detected (Not Detect); Methadone Screen, Urine Not Detected (Not Detect); Opiate Screen Urine Not Detected (Not Detect); Oxycodone Screen Urine Not Detected (Not Detect); Phencyclidine Screen Urine Not Detected (Not Detect)
--- NOTE | 2024-04-29 14:25 | PC.NURSE ---
Pt's rectal temp 97.6 at this time; Dominik Bishop dc'd at this time
--- NOTE | 2024-04-29 14:30 | P.HPHOSP_ITS ---
History of Present Illness Date of Service: 04/29/24 Attending physician on admission: Sonido Palmer Chief Complaint: AMS, SEPSIS PMFSH Social History Alcohol intake: current Alcohol intake frequency: 3 or more drinks per day Alcohol type: beer Smoked in Last 30 Days: Yes Use of substances other than those prescribed or required for medical reasons: No Advance Directives: No Advance Directives Information Provided: Yes Do you have a plan to hurt others: No Plan Meds Allergies Allergy/AdvReac Type Severity Reaction Status Date / Time No Known Allergies Allergy Verified 04/29/24 10:55 Active Medications: Current Medications Albuterol/Ipratropium (Albuterol/Iprat 2.5/0.5mg 3 Ml Ampul.Neb) 3 ml INHALE Q4H PRN PRN Reason: Shortness of Breath/Wheezing Heparin Sodium (Porcine) (Heparin Sodium,Porcine 5,000 Unit/Ml Vial) 5,000 unit SUBCUT Q12H MARKO Azithromycin 500 mg/ Sodium (Chloride) 250 mls @ 125 mls/hr IV ONCE ONE Stop: 04/29/24 16:07 Sodium Chloride (Ns) 1,000 mls @ 100 mls/hr IVCONT .Q10H MARKO Magnesium Hydroxide (Milk Of Magnesia 30 Ml Oral.Susp) 30 ml PO DAILY PRN PRN Reason: Constipation Pharmacy Consult (Consult Rx Etoh Phenob Im/Po) 1 each MISCELLANE ONCE PRN; Protocol PRN Reason: Consult order Phenobarbital (Phenobarbital 15 Mg Tablet) 45 mg PO BID MARKO; Protocol Stop: 05/01/24 21:01 Phenobarbital (Phenobarbital 30 Mg Tablet) 30 mg PO BID MARKO; Protocol Stop: 05/03/24 21:01 Phenobarbital (Phenobarbital 30 Mg Tablet) 30 mg PO DAILY MARKO; Protocol Stop: 05/05/24 09:01 Phenobarbital Sodium (Phenobarbital Sodium 130 Mg/Ml Vial Im Q3hx2) 330 mg IM Q3H MARKO; Protocol Stop: 04/29/24 19:01 Senna (Sennosides 8.6 Mg Tablet) 17.2 mg PO BEDTIME MARKO Sodium Chloride (0.9 % Sodium Chloride Flush 3 Ml Syringe) 3 ml IVFLUSH QSHIFT [facility] Home Medications ?Medication ?Instructions ?Recorded ?Confirmed ?Last Taken ?Type acamprosate 333 mg tablet,delayed 333 mg PO DAILY 04/29/24 Unknown History release amlodipine 10 mg tablet 10 mg PO DAILY 04/29/24 Unknown History clonidine HCl 0.1 mg tablet 0.1 mg PO BID 04/29/24 Unknown History empagliflozin 10 mg tablet 10 mg PO DAILY 04/29/24 Unknown History (Jardiance) fluticasone 250 mcg-salmeterol 50 1 ea inhalation BID 04/29/24 Unknown History mcg/dose blistr powdr for inhalation fluticasone propionate 50 1 spray intranasal DAILY 04/29/24 Unknown History mcg/actuation nasal spray,suspension glimepiride 4 mg tablet 4 mg PO DAILY 04/29/24 Unknown History levothyroxine 200 mcg tablet 200 mcg PO DAILY 04/29/24 Unknown History losartan 50 mg-hydrochlorothiazide 1 tab PO DAILY 04/29/24 Unknown History 12.5 mg tablet metformin 500 mg tablet 500 mg PO BID 04/29/24 Unknown History metoprolol succinate 100 mg 100 mg PO DAILY 04/29/24 Unknown History tablet,extended release 24 hr mometasone 0.1 % topical cream 1 appl topical DAILY 04/29/24 Unknown History montelukast 10 mg tablet 10 mg PO DAILY 04/29/24 Unknown History omeprazole 20 mg capsule,delayed 20 mg PO DAILY 04/29/24 Unknown History release pregabalin 75 mg capsule 75 mg PO BID 04/29/24 Unknown History sertraline 100 mg tablet 100 mg PO DAILY 04/29/24 Unknown History tamsulosin 0.4 mg capsule 0.4 mg PO DAILY 04/29/24 Unknown History Physical Exam 2 Vital Signs and Narrative: Vital Signs: Last Vital Signs Temp 97.6 F 04/29/24 13:20 Pulse 81 04/29/24 13:20 Resp 14 04/29/24 13:20 BP 96/65 04/29/24 14:22 Pulse Ox 96 04/29/24 13:20 O2 Del Method Nasal Cannula 04/29/24 13:20 O2 Flow Rate 3 04/29/24 13:20 BMI result Body Mass Index 31.4 Results Labs 04/29/24 10:33 04/29/24 10:33 Labs: Laboratory Results - last 24 hr 04/29/24 04/29/24 04/29/24 10:16 10:33 10:39 MCV 92.9 MCH 33.4 H MCHC 36.0 RDW 15.6 Plt Count 148 L MPV 9.9 Immature Gran % (Auto) 0.5 H Neut % (Auto) 76.3 H Lymph % (Auto) 15.4 L [place] % (Auto) 7.4 Eos % (Auto) 0.0 Baso % (Auto) 0.4 Lymph # (Auto) 0.9 L [place] # (Auto) 0.4 Eos # (Auto) 0.0 Baso # (Auto) 0.0 Abs Immat Gran (auto) 0.03 Absolute Neuts (auto) 4.2 Absolute Nucleated RBC 0.000 Nucleated RBC % (auto) 0.0 PT 16.6 H INR 1.4 H VBG pH 7.26 L VBG pCO2 64 VBG pO2 31 VBG HCO3 29 H VBG O2 Saturation 40.0 VBG Base Excess 0.7 Anion Gap 16 Estim Creat Clear Calc 30.3 Estimated GFR 21 POC Glucose 147 H Random Glucose 142 H Lactic Acid 2.6 H* Lactic Acid F/U @ 2Hr Calcium 8.0 L Magnesium 2.3 Total Bilirubin 1.5 H AST 670 H ALT 266 H Alkaline Phosphatase 807 H Total Protein 7.4 Albumin 3.4 L Beta-Hydroxybutyrate TSH Urine Color Urine Appearance Urine pH Ur Specific [place] Urine Protein Urine Glucose (UA) Urine Ketones Urine Blood Urine Nitrite Ur Leukocyte Esterase Urine RBC Urine WBC Ur Squamous Epith Cells Urine Bacteria Hyaline Casts Granular Casts Urine Opiates Screen Ur Buprenorphine Scrn Ur Oxycodone Screen Urine Methadone Screen Urine Fentanyl Screen Ur Barbiturates Screen Ur Phencyclidine Scrn Ur Amphetamines Screen U Benzodiazepines Scrn Urine Cocaine Screen U Marijuana (THC) Screen Ethyl Alcohol 70 04/29/24 04/29/24 13:25 13:39 MCV MCH MCHC RDW Plt Count MPV Immature Gran % (Auto) Neut % (Auto) Lymph % (Auto) [place] % (Auto) Eos % (Auto) Baso % (Auto) Lymph # (Auto) [place] # (Auto) Eos # (Auto) Baso # (Auto) Abs Immat Gran (auto) Absolute Neuts (auto) Absolute Nucleated RBC Nucleated RBC % (auto) PT INR VBG pH VBG pCO2 VBG pO2 VBG HCO3 VBG O2 Saturation VBG Base Excess Anion Gap Estim Creat Clear Calc Estimated GFR POC Glucose Random Glucose Lactic Acid Lactic Acid F/U @ 2Hr 2.7 H* Calcium Magnesium Total Bilirubin AST ALT Alkaline Phosphatase Total Protein Albumin Beta-Hydroxybutyrate 0.12 TSH 0.73 Urine Color Yellow Urine Appearance Clear Urine pH 5.0 Ur Specific [place] 1.015 Urine Protein 30 (1+) H Urine Glucose (UA) Negative Urine Ketones Negative Urine Blood Small (1+) H Urine Nitrite Negative Ur Leukocyte Esterase Negative Urine RBC 0-2 Urine WBC 0-5 Ur Squamous Epith Cells 0-2 Urine Bacteria None Seen Hyaline Casts 3-5 Granular Casts Present Urine Opiates Screen Not Detected Ur Buprenorphine Scrn Not Detected Ur Oxycodone Screen Not Detected Urine Methadone Screen Not Detected Urine Fentanyl Screen Not Detected Ur Barbiturates Screen Not Detected Ur Phencyclidine Scrn Not Detected Ur Amphetamines Screen Not Detected U Benzodiazepines Scrn Not Detected Urine Cocaine Screen Not Detected U Marijuana (THC) Screen Not Detected Ethyl Alcohol Imaging Radiologist's Impressions: Impressions Cervical Spine CT 04/29/24 10:26 IMPRESSION: Multilevel cervical spondylosis without acute fracture or trauma-related listhesis. Fleischner guidelines were followed. Electronically signed by: Luis Fernando Bah MD 04/29/2024 11:52 AM EDT RP Chest X-Ray 04/29/24 10:26 IMPRESSION: Mild interstitial lung edema in the correct clinical settings. Superimposed acute small airway disease in the correct clinical settings. Elevated right hemidiaphragm. Electronically signed by: Luis Fernando Bah MD 04/29/2024 11:10 AM EDT RP Head CT 04/29/24 11:12 IMPRESSION: No acute fracture or bony calvarium. No acute intracranial hemorrhage. Electronically signed by: Luis Fernando Bah MD 04/29/2024 11:46 AM EDT RP Face CT 04/29/24 12:43 IMPRESSION: No acute maxillofacial bone fracture. Nasal septum defect which could be seen in drug user Electronically signed by: Luis Fernando Bah MD 04/29/2024 01:46 PM EDT RP Abdomen/Pelvis CT 04/29/24 12:58 IMPRESSION: Concerning multifocal pneumonia right lung. Hepatomegaly and steatosis. Diverticular disease, sigmoid colon. Fat-containing umbilical hernia. Coronary artery disease and atherosclerosis disease. Probable vicarious contrast in the gallbladder. Fleischner guidelines were followed. Electronically signed by: Luis Fernando Bah MD 04/29/2024 01:54 PM EDT Assessment and Plan (1) Sepsis: Status: Acute (2) Multifocal pneumonia: Status: Acute (3) Status post fall: Status: Acute (4) DARRELL (acute kidney injury): Status: Acute (5) Hypoglycemia: Status: Acute (6) Hyponatremia: Status: Acute (7) Transaminitis: Status: Acute (8) ETOH abuse: Status: Acute (9) Thrombocytopenia: Status: Acute (10) Spondylosis: Status: Acute (11) Nasal septal defect: Status: Acute Plan Sepsis Mutlifocal PNA S/P fall DARRELL Hypoglycemia Hyponatremia Transamitis ETOH abuse Thrombocytopenia Spondylosis Nasal Septal Defect Quality VTE VTE Risk Level:: Medical - moderate - high VTE Device Contraindication: N/A - Device Ordered VTE Drug Contraindication: N/A - Med Ordered
[2024-04-29] MEDS: Heparin Sodium,Porcine 5,000 UNIT/ML VIAL 5000 UNIT SUBCUT ×2 (14:49→22:37)
[2024-04-29] MEDS: Dextrose 50 % 25 GM/50 ML SYRINGE IVPUSH ×3 (14:49→20:06)
[2024-04-29] MEDS: Azithromycin 500 MG in 0.9 % Sodium Chloride 250 ML 125 MG IV (14:49)
[2024-04-29] MEDS: Dextrose 5 % and 0.9 % NaCl 1,000 ML 50 ML IVCONT (14:53)
--- NOTE | 2024-04-29 14:57 | PC.NURSE ---
Pt's repeat BG POC 38; PA made aware; 1 amp D50% gv IVP and D% NS started at 50ml/hr; NS at 100ml/hr DC'd at this time; will cont to monitor/tx per orders
[2024-04-29 15:06] LABS: Glucose, Whole Blood 38 mg/dL (60-115)
[2024-04-29 15:12] LABS: Glucose, Whole Blood 110 mg/dL (60-115)
[2024-04-29 15:32] LABS: Reflex Lactate? 2 Y
--- NOTE | 2024-04-29 15:41 | PM.CCHP ---
History of Present Illness Date of Service: 04/29/24 Chief Complaint: Alcohol withdrawal, hyponatremia, acute renal failure 58-year-old gentleman with underlying alcohol dependence, obesity, diabetes mellitus being admitted for hyperglycemia and alcohol withdrawal on background of acute metabolic acidosis with acute renal failure and hyponatremia likely secondary to beer potomania Review of Systems Review of Systems: Yes Unobtainable due to mental status PMFSH Social History Social History Alcohol intake: current Alcohol intake frequency: 3 or more drinks per day Alcohol type: beer Smoked in Last 30 Days: Yes Use of substances other than those prescribed or required for medical reasons: No Advance Directives: No Advance Directives Information Provided: Yes Do you have a plan to hurt others: No Plan Meds Allergies Allergy/AdvReac Type Severity Reaction Status Date / Time No Known Allergies Allergy Verified 04/29/24 10:55 Active Medications: Current Medications Heparin Sodium (Porcine) (Heparin Sodium,Porcine 5,000 Unit/Ml Vial) 5,000 unit SUBCUT Q8H MARKO Azithromycin 500 mg/ Sodium (Chloride) 250 mls @ 125 mls/hr IV ONCE ONE Stop: 04/29/24 16:07 Last Admin: 04/29/24 14:49 Dose: 125 mls/hr Pharmacy Consult (Consult Rx Etoh Phenob Im/Po) 1 each MISCELLANE ONCE PRN; Protocol PRN Reason: Consult order Phenobarbital Sodium (Phenobarbital Sodium 130 Mg/Ml Vial Im Q3hx2) 330 mg IM Q3H MARKO; Protocol Stop: 04/29/24 19:01 Home Medications ?Medication ?Instructions ?Recorded ?Confirmed ?Last Taken ?Type acamprosate 333 mg tablet,delayed 333 mg PO DAILY 04/29/24 Unknown History release amlodipine 10 mg tablet 10 mg PO DAILY 04/29/24 Unknown History clonidine HCl 0.1 mg tablet 0.1 mg PO BID 04/29/24 Unknown History empagliflozin 10 mg tablet 10 mg PO DAILY 04/29/24 Unknown History (Jardiance) fluticasone 250 mcg-salmeterol 50 1 ea inhalation BID 04/29/24 Unknown History mcg/dose blistr powdr for inhalation fluticasone propionate 50 1 spray intranasal DAILY 04/29/24 Unknown History mcg/actuation nasal spray,suspension glimepiride 4 mg tablet 4 mg PO DAILY 04/29/24 Unknown History insulin glargine 100 unit/mL (3 10 unit subcut BEDTIME 04/29/24 04/29/24 Unknown History mL) subcutaneous pen (Lantus Solostar U-100 Insulin) levothyroxine 200 mcg tablet 200 mcg PO DAILY 04/29/24 Unknown History losartan 50 mg-hydrochlorothiazide 1 tab PO DAILY 04/29/24 Unknown History 12.5 mg tablet metformin 500 mg tablet 500 mg PO BID 04/29/24 Unknown History metoprolol succinate 100 mg 100 mg PO DAILY 04/29/24 Unknown History tablet,extended release 24 hr mometasone 0.1 % topical cream 1 appl topical DAILY 04/29/24 Unknown History montelukast 10 mg tablet 10 mg PO DAILY 04/29/24 Unknown History omeprazole 20 mg capsule,delayed 20 mg PO DAILY 04/29/24 Unknown History release pregabalin 75 mg capsule 75 mg PO BID 04/29/24 Unknown History sertraline 100 mg tablet 100 mg PO DAILY 04/29/24 Unknown History tamsulosin 0.4 mg capsule 0.4 mg PO DAILY 04/29/24 Unknown History Physical Exam Vital Signs: Vital Signs: Last Vital Signs Temp 97.6 F 04/29/24 13:20 Pulse 81 04/29/24 13:20 Resp 14 04/29/24 13:20 BP 96/65 04/29/24 14:22 Pulse Ox 96 04/29/24 13:20 O2 Del Method Nasal Cannula 04/29/24 13:20 O2 Flow Rate 3 04/29/24 13:20 BMI result Body Mass Index 31.4 Const: General: no acute distress and lethargic (Arousable, confused) Orientation/consciousness: lethargic (Arousable, confused) Eyes: Sclerae: sclerae normal EOM: EOMs intact bilaterally Neck: Neck: Yes no lymphadenopathy, Yes trachea midline and Yes supple Resp: Effort & Inspection: normal respiratory effort and no respiratory distress Auscultation: crackles (Mild bilateral) Cardio: Rate: regular rate Rhythm: regular rhythm Heart sounds: no gallops, no murmurs and no rubs GI: Palpation (GI): Soft to palpation and Other GI palpation findings present ( Nontender) Auscultation: normal bowel sounds Extrem: General: Yes no pedal edema, No clubbing and No cyanosis Results Labs 04/29/24 10:33 04/29/24 10:33 Labs: Laboratory Results - last 24 hr 04/29/24 04/29/24 04/29/24 10:16 10:33 10:39 MCV 92.9 MCH 33.4 H MCHC 36.0 RDW 15.6 Plt Count 148 L MPV 9.9 Immature Gran % (Auto) 0.5 H Neut % (Auto) 76.3 H Lymph % (Auto) 15.4 L [place] % (Auto) 7.4 Eos % (Auto) 0.0 Baso % (Auto) 0.4 Lymph # (Auto) 0.9 L [place] # (Auto) 0.4 Eos # (Auto) 0.0 Baso # (Auto) 0.0 Abs Immat Gran (auto) 0.03 Absolute Neuts (auto) 4.2 Absolute Nucleated RBC 0.000 Nucleated RBC % (auto) 0.0 PT 16.6 H INR 1.4 H VBG pH 7.26 L VBG pCO2 64 VBG pO2 31 VBG HCO3 29 H VBG O2 Saturation 40.0 VBG Base Excess 0.7 Anion Gap 16 Estim Creat Clear Calc 30.3 Estimated GFR 21 POC Glucose 147 H Random Glucose 142 H Lactic Acid 2.6 H* Lactic Acid F/U @ 2Hr Calcium 8.0 L Magnesium 2.3 Total Bilirubin 1.5 H AST 670 H ALT 266 H Alkaline Phosphatase 807 H Total Creatine Kinase 505 H Total Protein 7.4 Albumin 3.4 L Beta-Hydroxybutyrate TSH Urine Color Urine Appearance Urine pH Ur Specific [place] Urine Protein Urine Glucose (UA) Urine Ketones Urine Blood Urine Nitrite Ur Leukocyte Esterase Urine RBC Urine WBC Ur Squamous Epith Cells Urine Bacteria Hyaline Casts Granular Casts Urine Opiates Screen Ur Buprenorphine Scrn Ur Oxycodone Screen Urine Methadone Screen Urine Fentanyl Screen Ur Barbiturates Screen Ur Phencyclidine Scrn Ur Amphetamines Screen U Benzodiazepines Scrn Urine Cocaine Screen U Marijuana (THC) Screen Ethyl Alcohol 70 04/29/24 04/29/24 04/29/24 13:25 13:39 14:38 MCV MCH MCHC RDW Plt Count MPV Immature Gran % (Auto) Neut % (Auto) Lymph % (Auto) [place] % (Auto) Eos % (Auto) Baso % (Auto) Lymph # (Auto) [place] # (Auto) Eos # (Auto) Baso # (Auto) Abs Immat Gran (auto) Absolute Neuts (auto) Absolute Nucleated RBC Nucleated RBC % (auto) PT INR VBG pH VBG pCO2 VBG pO2 VBG HCO3 VBG O2 Saturation VBG Base Excess Anion Gap Estim Creat Clear Calc Estimated GFR POC Glucose 38 L* Random Glucose Lactic Acid Lactic Acid F/U @ 2Hr 2.7 H* Calcium Magnesium Total Bilirubin AST ALT Alkaline Phosphatase Total Creatine Kinase Total Protein Albumin Beta-Hydroxybutyrate 0.12 TSH 0.73 Urine Color Yellow Urine Appearance Clear Urine pH 5.0 Ur Specific [place] 1.015 Urine Protein 30 (1+) H Urine Glucose (UA) Negative Urine Ketones Negative Urine Blood Small (1+) H Urine Nitrite Negative Ur Leukocyte Esterase Negative Urine RBC 0-2 Urine WBC 0-5 Ur Squamous Epith Cells 0-2 Urine Bacteria None Seen Hyaline Casts 3-5 Granular Casts Present Urine Opiates Screen Not Detected Ur Buprenorphine Scrn Not Detected Ur Oxycodone Screen Not Detected Urine Methadone Screen Not Detected Urine Fentanyl Screen Not Detected Ur Barbiturates Screen Not Detected Ur Phencyclidine Scrn Not Detected Ur Amphetamines Screen Not Detected U Benzodiazepines Scrn Not Detected Urine Cocaine Screen Not Detected U Marijuana (THC) Screen Not Detected Ethyl Alcohol 04/29/24 15:09 MCV MCH MCHC RDW Plt Count MPV Immature Gran % (Auto) Neut % (Auto) Lymph % (Auto) [place] % (Auto) Eos % (Auto) Baso % (Auto) Lymph # (Auto) [place] # (Auto) Eos # (Auto) Baso # (Auto) Abs Immat Gran (auto) Absolute Neuts (auto) Absolute Nucleated RBC Nucleated RBC % (auto) PT INR VBG pH VBG pCO2 VBG pO2 VBG HCO3 VBG O2 Saturation VBG Base Excess Anion Gap Estim Creat Clear Calc Estimated GFR POC Glucose 110 Random Glucose Lactic Acid Lactic Acid F/U @ 2Hr Calcium Magnesium Total Bilirubin AST ALT Alkaline Phosphatase Total Creatine Kinase Total Protein Albumin Beta-Hydroxybutyrate TSH Urine Color Urine Appearance Urine pH Ur Specific [place] Urine Protein Urine Glucose (UA) Urine Ketones Urine Blood Urine Nitrite Ur Leukocyte Esterase Urine RBC Urine WBC Ur Squamous Epith Cells Urine Bacteria Hyaline Casts Granular Casts Urine Opiates Screen Ur Buprenorphine Scrn Ur Oxycodone Screen Urine Methadone Screen Urine Fentanyl Screen Ur Barbiturates Screen Ur Phencyclidine Scrn Ur Amphetamines Screen U Benzodiazepines Scrn Urine Cocaine Screen U Marijuana (THC) Screen Ethyl Alcohol Imaging Radiologist's Impressions: Impressions Cervical Spine CT 04/29/24 10:26 IMPRESSION: Multilevel cervical spondylosis without acute fracture or trauma-related listhesis. Fleischner guidelines were followed. Electronically signed by: Luis Fernando Bah MD 04/29/2024 11:52 AM EDT RP Chest X-Ray 04/29/24 10:26 IMPRESSION: Mild interstitial lung edema in the correct clinical settings. Superimposed acute small airway disease in the correct clinical settings. Elevated right hemidiaphragm. Electronically signed by: Luis Fernando Bah MD 04/29/2024 11:10 AM EDT RP Head CT 04/29/24 11:12 IMPRESSION: No acute fracture or bony calvarium. No acute intracranial hemorrhage. Electronically signed by: Luis Fernando Bah MD 04/29/2024 11:46 AM EDT RP Chest CT 04/29/24 12:43 IMPRESSION: 1. Marked elevation of the right hemidiaphragm with adjacent subsegmental atelectasis. 2. Patchy groundglass opacity at the left lung apex may be inflammatory in nature. 3. Hepatic steatosis. Electronically signed by: Darin Portillo MD 04/29/2024 02:45 PM EDT RP Face CT 04/29/24 12:43 IMPRESSION: No acute maxillofacial bone fracture. Nasal septum defect which could be seen in drug user Electronically signed by: Luis Fernando Bah MD 04/29/2024 01:46 PM EDT RP Abdomen/Pelvis CT 04/29/24 12:58 IMPRESSION: Concerning multifocal pneumonia right lung. Hepatomegaly and steatosis. Diverticular disease, sigmoid colon. Fat-containing umbilical hernia. Coronary artery disease and atherosclerosis disease. Probable vicarious contrast in the gallbladder. Fleischner guidelines were followed. Electronically signed by: Luis Fernando Bah MD 04/29/2024 01:54 PM EDT RP Abdomen Ultrasound 04/29/24 13:44 IMPRESSION: Limited examination. Hepatomegaly and hepatic steatosis. Electronically signed by: Darin Portillo MD 04/29/2024 02:27 PM EDT RP Assessment and Plan (1) Alcohol abuse with withdrawal: Status: Acute (2) Hypoglycemia: Status: Acute (3) Hyponatremia: Status: Acute (4) DARRELL (acute kidney injury): Status: Acute (5) Metabolic acidosis: Status: Acute (6) Transaminitis: Status: Acute Plan Assessment: 58-year-old gentleman being admitted with alcohol withdrawal further complicated by acute hyponatremia likely secondary to beer potomania, acute renal failure with metabolic acidosis and hypoglycemia Plan: Neuro: Alcohol withdrawal, phenobarbital protocol as needed. Cardiac: No acute issues. Pulmonary: No acute issues. Renal: Acute renal failure with metabolic acidosis and hyponatremia, non oliguric. Continue to monitor renal indices and urine output. Likely underlying be able to chiquis. Endo: No acute issues. Underlying diabetes mellitus, sliding insulin. GI: No acute issues. ID: No acute issues Heme/Onc: No acute issues. Psych: No acute issues. Miscellaneous: No acute issues. Prophylaxis: Heparin Diet: Empiric Critical care time spent: 45 minute
[2024-04-29 16:01] LABS: Glucose, Whole Blood 72 mg/dL (60-115)
[2024-04-29 16:41] LABS: Venous Blood Gas Refer to POC result
[2024-04-29 16:42] LABS: VBG Base Excess 0.2 mmol/L; VBG HCO3 25 mmol/L (22-26); VBG pCO2 43 mmHg; VBG pH 7.37 (7.32-7.43); VBG pO2 67 mmHg
--- NOTE | 2024-04-29 16:49 | PHA.MEDREC ---
Addendum entered by Enzo Garcia, [facility] 04/29/24 16:59: med rec reviewed Original Note: Pharmacy Consult ? Medication Reconciliation Pharmacy has completed the medication reconciliation. Patient is AMS. Spoke to family at bedside to confirm med list , however she didn't know what medications patient is taking. Family instructed me to call [facility] for recent med list. DJ at [facility] inpatient pharmacy states patent has only been in the ER department. Called [facility] in [place] and they confirmed Glimepiride 4 mg, Lantus solostar 10 units, however last fill date was 12/24/23 for 88 days, Mometasone cream, and pregabalin 75 mg. Called [facility] and they confirmed all other medications.
[2024-04-29 16:54] LABS: ~Lactic Acid-LAB USE ONLY 1.5 mmol/L (0.5-2.0)
[2024-04-29 17:09] LABS: Alanine Aminotransferase 184 U/L (0-40); Albumin Level 2.4 g/dL (3.5-5.0); Alkaline Phosphatase 596 U/L (39-117); Anion Gap 12 (12-20); Aspartate Amino Transferase 406 U/L (5-37); Bilirubin Total 1.1 mg/dL (0.0-1.0); Blood Urea Nitrogen 71 mg/dL (9-16); Calcium 6.8 mg/dL (8.4-10.2); Carbon Dioxide 25 mmol/L (22-29); Chloride 94 mmol/L (96-108); Creatinine Clr Calc Pharmacy 35.7; Estimated Glomerular Filt Rate 25; Glucose Random 51 mg/dL (60-115); Potassium 4.4 mmol/L (3.3-5.1); Sodium 127 mmol/L (135-145); Total Protein 5.3 g/dL (6.5-8.0)
[2024-04-29 17:16] LABS: Glucose, Whole Blood 39 mg/dL (60-115)
[2024-04-29] MEDS: Dextrose 5 % and Lactated Ring 1,000 ML 100 ML IVCONT (17:27)
[2024-04-29 17:38] LABS: Glucose, Whole Blood 125 mg/dL (60-115)
[2024-04-29 18:30] LABS: Anion Gap 13 (12-20); Blood Urea Nitrogen 70 mg/dL (9-16); Carbon Dioxide 25 mmol/L (22-29); Chloride 93 mmol/L (96-108); Creatinine Clr Calc Pharmacy 35.9; Estimated Glomerular Filt Rate 25; Glucose Random 84 mg/dL (60-115); Potassium 4.3 mmol/L (3.3-5.1); Sodium 127 mmol/L (135-145)
[2024-04-29 18:36] LABS: Glucose, Whole Blood 79 mg/dL (60-115)
--- NOTE | 2024-04-29 19:14 | PC.NURSE ---
Assumed care of patient 17:00 Pt awake, able to answers questions, opens eyes to name. A+Ox3. [place] atheter in place to measure accurate intake and output. 17:21 D50% IVP prn given for POC glucose 39. Critical lab result random glucose 51 reported to RN. MD notified. POC glucose rechecks improved 125 and 79. See EMR. D5LR fluids rate increased per MD to 100 ml/hr. Patient sister Rachel provided history and admission questions assistance for patient New HCP form completed for patient with 2 RNs to witness. Sister states patient dentures at home, patient does not like to use them. No hearing aids present on admission. High fall precautions and seizure precautions in place.
--- NOTE | 2024-04-29 19:19 | HO.SKINPHOTO ---
Location: plantar aspect of LEFT foot Category: Ulcer Location: Right great toe Category: ?diabetic ulcer Location: lateral aspect of RIGHT ankle Category: abrasion Location: RIGHT knee Category: abrasion Location: LEFT knee Category: abrasion
[2024-04-29] MEDS: Albumin Human 25 % 100 ML IV (19:54)
[2024-04-29 20:08] LABS: Glucose, Whole Blood 45 mg/dL (60-115)
[2024-04-29 20:22] LABS: Glucose, Whole Blood 144 mg/dL (60-115)
[2024-04-29] MEDS: PHENobarbitaL sodium 130 MG/ML VIAL IM Q3Hx2 330 MG IM (20:32)
[2024-04-29 21:49] LABS: Glucose, Whole Blood 68 mg/dL (60-115)
[2024-04-29 22:26] LABS: Anion Gap 13 (12-20); Blood Urea Nitrogen 62 mg/dL (9-16); Calcium 7.2 mg/dL (8.4-10.2); Carbon Dioxide 26 mmol/L (22-29); Chloride 95 mmol/L (96-108); Creatinine Clr Calc Pharmacy 42.8; Estimated Glomerular Filt Rate 31; Glucose Random 54 mg/dL (60-115); Magnesium 1.8 mg/dL (1.6-2.6); Potassium 4.2 mmol/L (3.3-5.1); Sodium 130 mmol/L (135-145)
[2024-04-29] MEDS: Dextrose 10 % 1,000 ML 75 ML IVCONT (22:36)
[2024-04-29 23:52] LABS: Glucose, Whole Blood 75 mg/dL (60-115)
[2024-04-30] VITALS (32 sets, daily range): BP systolic 102–154; BP diastolic 72–114; PULSE 68–112; RESP 9–21; TEMP 34.3–37; O2SAT 80–98; BMI 31.4
[2024-04-30] MEDS: PHENobarbitaL sodium 130 MG/ML VIAL 330 MG IM (00:52)
[2024-04-30] MEDS: Albumin Human 25 % 100 ML IV ×3 (00:59→13:24)
[2024-04-30 01:23] LABS: Anion Gap 14 (12-20); Blood Urea Nitrogen 61 mg/dL (9-16); Calcium 7.5 mg/dL (8.4-10.2); Carbon Dioxide 26 mmol/L (22-29); Chloride 94 mmol/L (96-108); Creatinine Clr Calc Pharmacy 43.2; Estimated Glomerular Filt Rate 31; Glucose Random 53 mg/dL (60-115); Potassium 4.1 mmol/L (3.3-5.1); Sodium 130 mmol/L (135-145)
[2024-04-30] MEDS: dexmedeTOMIDidine HCL/NS 400 MCG/100 ML INFUS..BTL 12.4 MCG IVCONT (01:25)
[2024-04-30] MEDS: Dextrose 50 % 25 GM/50 ML SYRINGE IVPUSH (01:26)
[2024-04-30 01:58] LABS: Glucose, Whole Blood 130 mg/dL (60-115)
[2024-04-30] MEDS: Magnesium Sulfate/D5W 1 GM/100 ML PIGGYBACK IV (02:54)
[2024-04-30] MEDS: Albuterol Sulfate (0.083%) 2.5 MG/3 ML VIAL.NEB INHALE (03:07)
[2024-04-30] MEDS: Midazolam HCl 2 MG/2 ML VIAL IVPUSH ×2 (03:10→21:35)
[2024-04-30] MEDS: Dextrose 5 % 500 ML 250 ML IVCONT (03:21)
[2024-04-30 04:00] LABS: Glucose, Whole Blood 193 mg/dL (60-115)
[2024-04-30] MEDS: dexmedeTOMIDidine HCL/NS 400 MCG/100 ML INFUS..BTL 32.24 MCG IVCONT ×2 (04:30→17:56)
--- NOTE | 2024-04-30 04:37 | PC.NURSE ---
pt experiencing worsening agitation and restlessness. despite full phenobarb load, pt is actively hallucinating with auditory and visual hallucinations. at times pt is attempting to climb over side rails. he is self dialoguing and yelling out we need to get out of the [place]ilde. pt has thought that i was his father at his bedside. he states that he saw a white rabbit and alligator. he has gross motor tremor of upper extremities. with increased agitation pt experiencing resp distress with sao2 dropping into the 70s. supplemental oxygen increased to 15 lpm. breath sounds are diminished with upper airway i/e wheezing. stat updraft tx and magnessium 1 gram iv over 1 hour. pt continues to suffer from electrolyte derangements and hypoglycemic events. please refer to labs and ordered iv fluids. attempted to pass cu de catheter to no avail d/t urinary outlet resistance. at this juncture, pt is sedated and on precedex infusion at 1.3 mcg/kg/hr. a x1 dose of versed also contributed to resolution of agitation. resp component improved with sedation and magnesium tx. sedation has also resolved tachycardia. u/o has been>100 ml/hr. labs pending.
[2024-04-30 04:41] LABS: VBG Base Excess 1.5 mmol/L; VBG HCO3 28 mmol/L (22-26); VBG pCO2 54 mmHg; VBG pH 7.32 (7.32-7.43); VBG pO2 76 mmHg
[2024-04-30 05:10] LABS: Basophils Percent Auto 0.3 % (0-2); Eosinophils Percent Auto 0.5 % (0-4); Hematocrit 32.4 % (42.0-52.0); Hemoglobin 11.3 g/dl (14.0-18.0); Imm Gran Abs Auto 0.03 X10*3/uL (0.00-0.03); Imm Gran Pct Auto 0.5 % (0.0-0.4); Lymphocytes Absolute Auto 0.6 X10*3/uL (1.2-4.9); Lymphocytes Percent Auto 10.4 % (20-40); Mean Corpuscular HGB Conc 34.9 g/dl (31.0-36.0); Mean Corpuscular Hemoglobin 32.8 pg (27.0-33.0); Mean Corpuscular Volume 94.2 fL (80.0-98.0); Mean Platelet Volume 10.4 fL (9.4-12.4); Monocytes Absolute Auto 0.4 X10*3/uL (0.1-1.2); Monocytes Percent Auto 6.3 % (2-11); Red Blood Count 3.44 X10*6/uL (4.60-5.80); Red Cell Distribution Width 15.7 % (11.0-16.0); White Blood Count 6.1 X10*3/uL (4.8-10.8)
[2024-04-30 05:13] LABS: MANUAL DIFF FLAG SCAN; Platelet Count 86 X10*3/uL (160-400)
[2024-04-30 05:33] LABS: SLIDE REVIEW VERIFIED
[2024-04-30 05:37] LABS: Alanine Aminotransferase 157 U/L (0-40); Albumin Level 3.2 g/dL (3.5-5.0); Anion Gap 15 (12-20); Aspartate Amino Transferase 315 U/L (5-37); Bilirubin Total 1.4 mg/dL (0.0-1.0); Blood Urea Nitrogen 55 mg/dL (9-16); Calcium 7.3 mg/dL (8.4-10.2); Carbon Dioxide 25 mmol/L (22-29); Chloride 92 mmol/L (96-108); Creatinine Clr Calc Pharmacy 49.9; Estimated Glomerular Filt Rate 37; Glucose Random 156 mg/dL (60-115); Magnesium 1.9 mg/dL (1.6-2.6); Phosphorus 3.7 mg/dL (2.7-4.5); Potassium 3.7 mmol/L (3.3-5.1); Sodium 128 mmol/L (135-145); Total Protein 6.2 g/dL (6.5-8.0)
[2024-04-30 05:38] LABS: Alkaline Phosphatase 593 U/L (39-117)
[2024-04-30 05:57] LABS: Glucose, Whole Blood 198 mg/dL (60-115)
[2024-04-30 06:13] LABS: Venous Blood Gas Refer to POC result
[2024-04-30] MEDS: Heparin Sodium,Porcine 5,000 UNIT/ML VIAL 5000 UNIT SUBCUT ×2 (06:13→22:17)
[2024-04-30] MEDS: Calcium Gluconate/NaCl,Iso-Osm 2 GM/100 ML PLAST..BAG IV ×2 (06:22→22:57)
[2024-04-30] MEDS: dexmedeTOMIDidine HCL/NS 400 MCG/100 ML INFUS..BTL 22.32 MCG IVCONT (07:22)
[2024-04-30] MEDS: Dextrose 10 % 1,000 ML 100 ML IVCONT (07:23)
[2024-04-30 08:10] LABS: Glucose, Whole Blood 263 mg/dL (60-115)
[2024-04-30] MEDS: 0.9 % Sodium Chloride Flush 3 ML SYRINGE IVFLUSH ×3 (08:11→23:28)
[2024-04-30 10:30] LABS: Glucose, Whole Blood 262 mg/dL (60-115)
--- NOTE | 2024-04-30 10:32 | PM.CCPN ---
Subjective Subjective Date of Service: 04/30/24 Interval History: 58-year-old gentleman with underlying alcohol dependence, obesity, diabetes mellitus being admitted for hyperglycemia and alcohol withdrawal on background of acute metabolic acidosis with acute renal failure and hyponatremia likely secondary to beer potomania. Overnight with worsening agitation requiring initiation of Precedex drip. Critical Care Time (minutes): 45 Physical Exam Vital Signs: Vital Signs: Last Vital Signs Temp 97.5 F 04/30/24 08:00 Pulse 70 04/30/24 10:00 Resp 10 L 04/30/24 10:00 BP 132/98 H 04/30/24 10:00 Pulse Ox 91 L 04/30/24 10:00 O2 Del Method Nasal Cannula 04/30/24 10:00 O2 Flow Rate 15 04/30/24 10:00 BMI result Body Mass Index 31.4 Const: General: no acute distress and lethargic (Arousable, intermittently agitated) Orientation/consciousness: lethargic (Arousable, intermittently agitated) Eyes: Sclerae: sclerae normal EOM: EOMs intact bilaterally Neck: Neck: Yes no lymphadenopathy, Yes trachea midline and Yes supple Resp: Effort & Inspection: normal respiratory effort and no respiratory distress Auscultation: clear to auscultation bilaterally Cardio: Rate: regular rate Rhythm: regular rhythm Heart sounds: no gallops, no murmurs and no rubs GI: Palpation (GI): Soft to palpation and Other GI palpation findings present ( Nontender) Auscultation: normal bowel sounds Extrem: General: Yes no pedal edema, No clubbing and No cyanosis Objective Data Labs 04/30/24 04:32 04/30/24 04:32 Labs: Laboratory Results - last 24 hr 04/29/24 04/29/24 04/29/24 10:16 10:33 10:39 WBC 5.5 RBC 4.22 L Hgb 14.1 Hct 39.2 L MCV 92.9 MCH 33.4 H MCHC 36.0 RDW 15.6 Plt Count 148 L MPV 9.9 Immature Gran % (Auto) 0.5 H Neut % (Auto) 76.3 H Lymph % (Auto) 15.4 L [place] % (Auto) 7.4 Eos % (Auto) 0.0 Baso % (Auto) 0.4 Lymph # (Auto) 0.9 L [place] # (Auto) 0.4 Eos # (Auto) 0.0 Baso # (Auto) 0.0 Abs Immat Gran (auto) 0.03 Absolute Neuts (auto) 4.2 Absolute Nucleated RBC 0.000 Nucleated RBC % (auto) 0.0 Smear Tech's Comments PT 16.6 H INR 1.4 H VBG pH 7.26 L VBG pCO2 64 VBG pO2 31 VBG HCO3 29 H VBG O2 Saturation 40.0 VBG Base Excess 0.7 Sodium 122 L Potassium 4.7 Chloride 84 L Carbon Dioxide 27 Anion Gap 16 BUN 75 H Creatinine 3.09 H Estim Creat Clear Calc 30.3 Estimated GFR 21 POC Glucose 147 H Random Glucose 142 H Lactic Acid 2.6 H* Lactic Acid F/U @ 2Hr Lactic Acid F/U @ 4Hr Calcium 8.0 L Phosphorus Magnesium 2.3 Total Bilirubin 1.5 H AST 670 H ALT 266 H Alkaline Phosphatase 807 H Total Creatine Kinase 505 H Troponin I High Sens 43.0 H Total Protein 7.4 Albumin 3.4 L Beta-Hydroxybutyrate TSH Urine Color Urine Appearance Urine pH Ur Specific [place] Urine Protein Urine Glucose (UA) Urine Ketones Urine Blood Urine Nitrite Ur Leukocyte Esterase Urine RBC Urine WBC Ur Squamous Epith Cells Urine Bacteria Hyaline Casts Granular Casts Urine Opiates Screen Ur Buprenorphine Scrn Ur Oxycodone Screen Urine Methadone Screen Urine Fentanyl Screen Ur Barbiturates Screen Ur Phencyclidine Scrn Ur Amphetamines Screen U Benzodiazepines Scrn Urine Cocaine Screen U Marijuana (THC) Screen Ethyl Alcohol 70 04/29/24 04/29/24 04/29/24 13:25 13:25 13:39 WBC RBC Hgb Hct MCV MCH MCHC RDW Plt Count MPV Immature Gran % (Auto) Neut % (Auto) Lymph % (Auto) [place] % (Auto) Eos % (Auto) Baso % (Auto) Lymph # (Auto) [place] # (Auto) Eos # (Auto) Baso # (Auto) Abs Immat Gran (auto) Absolute Neuts (auto) Absolute Nucleated RBC Nucleated RBC % (auto) Smear Tech's Comments PT INR VBG pH VBG pCO2 VBG pO2 VBG HCO3 VBG O2 Saturation VBG Base Excess Sodium Potassium Chloride Carbon Dioxide Anion Gap BUN Creatinine Estim Creat Clear Calc Estimated GFR POC Glucose Random Glucose Lactic Acid Lactic Acid F/U @ 2Hr 2.7 H* Lactic Acid F/U @ 4Hr Calcium Phosphorus Magnesium Total Bilirubin AST ALT Alkaline Phosphatase Total Creatine Kinase Troponin I High Sens 35.3 H 33.9 Total Protein Albumin Beta-Hydroxybutyrate 0.12 TSH 0.73 Urine Color Yellow Urine Appearance Clear Urine pH 5.0 Ur Specific [place] 1.015 Urine Protein 30 (1+) H Urine Glucose (UA) Negative Urine Ketones Negative Urine Blood Small (1+) H Urine Nitrite Negative Ur Leukocyte Esterase Negative Urine RBC 0-2 Urine WBC 0-5 Ur Squamous Epith Cells 0-2 Urine Bacteria None Seen Hyaline Casts 3-5 Granular Casts Present Urine Opiates Screen Not Detected Ur Buprenorphine Scrn Not Detected Ur Oxycodone Screen Not Detected Urine Methadone Screen Not Detected Urine Fentanyl Screen Not Detected Ur Barbiturates Screen Not Detected Ur Phencyclidine Scrn Not Detected Ur Amphetamines Screen Not Detected U Benzodiazepines Scrn Not Detected Urine Cocaine Screen Not Detected U Marijuana (THC) Screen Not Detected Ethyl Alcohol 04/29/24 04/29/24 04/29/24 14:38 15:09 15:58 WBC RBC Hgb Hct MCV MCH MCHC RDW Plt Count MPV Immature Gran % (Auto) Neut % (Auto) Lymph % (Auto) [place] % (Auto) Eos % (Auto) Baso % (Auto) Lymph # (Auto) [place] # (Auto) Eos # (Auto) Baso # (Auto) Abs Immat Gran (auto) Absolute Neuts (auto) Absolute Nucleated RBC Nucleated RBC % (auto) Smear Tech's Comments PT INR VBG pH VBG pCO2 VBG pO2 VBG HCO3 VBG O2 Saturation VBG Base Excess Sodium Potassium Chloride Carbon Dioxide Anion Gap BUN Creatinine Estim Creat Clear Calc Estimated GFR POC Glucose 38 L* 110 72 Random Glucose Lactic Acid Lactic Acid F/U @ 2Hr Lactic Acid F/U @ 4Hr Calcium Phosphorus Magnesium Total Bilirubin AST ALT Alkaline Phosphatase Total Creatine Kinase Troponin I High Sens Total Protein Albumin Beta-Hydroxybutyrate TSH Urine Color Urine Appearance Urine pH Ur Specific [place] Urine Protein Urine Glucose (UA) Urine Ketones Urine Blood Urine Nitrite Ur Leukocyte Esterase Urine RBC Urine WBC Ur Squamous Epith Cells Urine Bacteria Hyaline Casts Granular Casts Urine Opiates Screen Ur Buprenorphine Scrn Ur Oxycodone Screen Urine Methadone Screen Urine Fentanyl Screen Ur Barbiturates Screen Ur Phencyclidine Scrn Ur Amphetamines Screen U Benzodiazepines Scrn Urine Cocaine Screen U Marijuana (THC) Screen Ethyl Alcohol 04/29/24 04/29/24 04/29/24 16:33 16:37 17:13 WBC RBC Hgb Hct MCV MCH MCHC RDW Plt Count MPV Immature Gran % (Auto) Neut % (Auto) Lymph % (Auto) [place] % (Auto) Eos % (Auto) Baso % (Auto) Lymph # (Auto) [place] # (Auto) Eos # (Auto) Baso # (Auto) Abs Immat Gran (auto) Absolute Neuts (auto) Absolute Nucleated RBC Nucleated RBC % (auto) Smear Tech's Comments PT INR VBG pH 7.37 VBG pCO2 43 VBG pO2 67 VBG HCO3 25 VBG O2 Saturation 94.0 VBG Base Excess 0.2 Sodium 127 L Potassium 4.4 Chloride 94 L Carbon Dioxide 25 Anion Gap 12 BUN 71 H Creatinine 2.63 H Estim Creat Clear Calc 35.7 Estimated GFR 25 POC Glucose 39 L* Random Glucose 51 L* Lactic Acid Lactic Acid F/U @ 2Hr Lactic Acid F/U @ 4Hr 1.5 Calcium 6.8 L D Phosphorus Magnesium Total Bilirubin 1.1 H AST 406 H ALT 184 H Alkaline Phosphatase 596 H Total Creatine Kinase Troponin I High Sens Total Protein 5.3 L Albumin 2.4 L Beta-Hydroxybutyrate TSH Urine Color Urine Appearance Urine pH Ur Specific [place] Urine Protein Urine Glucose (UA) Urine Ketones Urine Blood Urine Nitrite Ur Leukocyte Esterase Urine RBC Urine WBC Ur Squamous Epith Cells Urine Bacteria Hyaline Casts Granular Casts Urine Opiates Screen Ur Buprenorphine Scrn Ur Oxycodone Screen Urine Methadone Screen Urine Fentanyl Screen Ur Barbiturates Screen Ur Phencyclidine Scrn Ur Amphetamines Screen U Benzodiazepines Scrn Urine Cocaine Screen U Marijuana (THC) Screen Ethyl Alcohol 04/29/24 04/29/24 04/29/24 17:34 17:59 18:15 WBC RBC Hgb Hct MCV MCH MCHC RDW Plt Count MPV Immature Gran % (Auto) Neut % (Auto) Lymph % (Auto) [place] % (Auto) Eos % (Auto) Baso % (Auto) Lymph # (Auto) [place] # (Auto) Eos # (Auto) Baso # (Auto) Abs Immat Gran (auto) Absolute Neuts (auto) Absolute Nucleated RBC Nucleated RBC % (auto) Smear Tech's Comments PT INR VBG pH VBG pCO2 VBG pO2 VBG HCO3 VBG O2 Saturation VBG Base Excess Sodium 127 L Potassium 4.3 Chloride 93 L Carbon Dioxide 25 Anion Gap 13 BUN 70 H Creatinine 2.61 H Estim Creat Clear Calc 35.9 Estimated GFR 25 POC Glucose 125 H 79 Random Glucose 84 Lactic Acid Lactic Acid F/U @ 2Hr Lactic Acid F/U @ 4Hr Calcium 7.0 L Phosphorus Magnesium Total Bilirubin AST ALT Alkaline Phosphatase Total Creatine Kinase Troponin I High Sens Total Protein Albumin Beta-Hydroxybutyrate TSH Urine Color Urine Appearance Urine pH Ur Specific [place] Urine Protein Urine Glucose (UA) Urine Ketones Urine Blood Urine Nitrite Ur Leukocyte Esterase Urine RBC Urine WBC Ur Squamous Epith Cells Urine Bacteria Hyaline Casts Granular Casts Urine Opiates Screen Ur Buprenorphine Scrn Ur Oxycodone Screen Urine Methadone Screen Urine Fentanyl Screen Ur Barbiturates Screen Ur Phencyclidine Scrn Ur Amphetamines Screen U Benzodiazepines Scrn Urine Cocaine Screen U Marijuana (THC) Screen Ethyl Alcohol 04/29/24 04/29/24 04/29/24 20:04 20:19 21:45 WBC RBC Hgb Hct MCV MCH MCHC RDW Plt Count MPV Immature Gran % (Auto) Neut % (Auto) Lymph % (Auto) [place] % (Auto) Eos % (Auto) Baso % (Auto) Lymph # (Auto) [place] # (Auto) Eos # (Auto) Baso # (Auto) Abs Immat Gran (auto) Absolute Neuts (auto) Absolute Nucleated RBC Nucleated RBC % (auto) Smear Tech's Comments PT INR VBG pH VBG pCO2 VBG pO2 VBG HCO3 VBG O2 Saturation VBG Base Excess Sodium Potassium Chloride Carbon Dioxide Anion Gap BUN Creatinine Estim Creat Clear Calc Estimated GFR POC Glucose 45 L* 144 H 68 Random Glucose Lactic Acid Lactic Acid F/U @ 2Hr Lactic Acid F/U @ 4Hr Calcium Phosphorus Magnesium Total Bilirubin AST ALT Alkaline Phosphatase Total Creatine Kinase Troponin I High Sens Total Protein Albumin Beta-Hydroxybutyrate TSH Urine Color Urine Appearance Urine pH Ur Specific [place] Urine Protein Urine Glucose (UA) Urine Ketones Urine Blood Urine Nitrite Ur Leukocyte Esterase Urine RBC Urine WBC Ur Squamous Epith Cells Urine Bacteria Hyaline Casts Granular Casts Urine Opiates Screen Ur Buprenorphine Scrn Ur Oxycodone Screen Urine Methadone Screen Urine Fentanyl Screen Ur Barbiturates Screen Ur Phencyclidine Scrn Ur Amphetamines Screen U Benzodiazepines Scrn Urine Cocaine Screen U Marijuana (THC) Screen Ethyl Alcohol 04/29/24 04/29/24 04/30/24 22:03 23:49 01:00 WBC RBC Hgb Hct MCV MCH MCHC RDW Plt Count MPV Immature Gran % (Auto) Neut % (Auto) Lymph % (Auto) [place] % (Auto) Eos % (Auto) Baso % (Auto) Lymph # (Auto) [place] # (Auto) Eos # (Auto) Baso # (Auto) Abs Immat Gran (auto) Absolute Neuts (auto) Absolute Nucleated RBC Nucleated RBC % (auto) Smear Tech's Comments PT INR VBG pH VBG pCO2 VBG pO2 VBG HCO3 VBG O2 Saturation VBG Base Excess Sodium 130 L 130 L Potassium 4.2 4.1 Chloride 95 L 94 L Carbon Dioxide 26 26 Anion Gap 13 14 BUN 62 H 61 H Creatinine 2.19 H 2.17 H Estim Creat Clear Calc 42.8 43.2 Estimated GFR 31 31 POC Glucose 75 Random Glucose 54 L* 53 L* Lactic Acid Lactic Acid F/U @ 2Hr Lactic Acid F/U @ 4Hr Calcium 7.2 L 7.5 L Phosphorus 4.0 Magnesium 1.8 Total Bilirubin AST ALT Alkaline Phosphatase Total Creatine Kinase Troponin I High Sens Total Protein Albumin Beta-Hydroxybutyrate TSH Urine Color Urine Appearance Urine pH Ur Specific [place] Urine Protein Urine Glucose (UA) Urine Ketones Urine Blood Urine Nitrite Ur Leukocyte Esterase Urine RBC Urine WBC Ur Squamous Epith Cells Urine Bacteria Hyaline Casts Granular Casts Urine Opiates Screen Ur Buprenorphine Scrn Ur Oxycodone Screen Urine Methadone Screen Urine Fentanyl Screen Ur Barbiturates Screen Ur Phencyclidine Scrn Ur Amphetamines Screen U Benzodiazepines Scrn Urine Cocaine Screen U Marijuana (THC) Screen Ethyl Alcohol 04/30/24 04/30/24 04/30/24 01:54 03:56 04:32 WBC 6.1 RBC 3.44 L Hgb 11.3 L Hct 32.4 L MCV 94.2 MCH 32.8 MCHC 34.9 RDW 15.7 Plt Count 86 L D MPV 10.4 Immature Gran % (Auto) 0.5 H Neut % (Auto) 82.0 H Lymph % (Auto) 10.4 L [place] % (Auto) 6.3 Eos % (Auto) 0.5 Baso % (Auto) 0.3 Lymph # (Auto) 0.6 L [place] # (Auto) 0.4 Eos # (Auto) 0.0 Baso # (Auto) 0.0 Abs Immat Gran (auto) 0.03 Absolute Neuts (auto) 5.0 Absolute Nucleated RBC 0.000 Nucleated RBC % (auto) 0.0 Smear Tech's Comments VERIFIED PT INR VBG pH VBG pCO2 VBG pO2 VBG HCO3 VBG O2 Saturation VBG Base Excess Sodium 128 L Potassium 3.7 Chloride 92 L Carbon Dioxide 25 Anion Gap 15 BUN 55 H Creatinine 1.88 H Estim Creat Clear Calc 49.9 Estimated GFR 37 POC Glucose 130 H 193 H Random Glucose 156 H Lactic Acid Lactic Acid F/U @ 2Hr Lactic Acid F/U @ 4Hr Calcium 7.3 L Phosphorus 3.7 Magnesium 1.9 Total Bilirubin 1.4 H AST 315 H ALT 157 H Alkaline Phosphatase 593 H Total Creatine Kinase Troponin I High Sens Total Protein 6.2 L Albumin 3.2 L Beta-Hydroxybutyrate TSH Urine Color Urine Appearance Urine pH Ur Specific [place] Urine Protein Urine Glucose (UA) Urine Ketones Urine Blood Urine Nitrite Ur Leukocyte Esterase Urine RBC Urine WBC Ur Squamous Epith Cells Urine Bacteria Hyaline Casts Granular Casts Urine Opiates Screen Ur Buprenorphine Scrn Ur Oxycodone Screen Urine Methadone Screen Urine Fentanyl Screen Ur Barbiturates Screen Ur Phencyclidine Scrn Ur Amphetamines Screen U Benzodiazepines Scrn Urine Cocaine Screen U Marijuana (THC) Screen Ethyl Alcohol 04/30/24 04/30/24 04/30/24 04:36 05:54 08:05 WBC RBC Hgb Hct MCV MCH MCHC RDW Plt Count MPV Immature Gran % (Auto) Neut % (Auto) Lymph % (Auto) [place] % (Auto) Eos % (Auto) Baso % (Auto) Lymph # (Auto) [place] # (Auto) Eos # (Auto) Baso # (Auto) Abs Immat Gran (auto) Absolute Neuts (auto) Absolute Nucleated RBC Nucleated RBC % (auto) Smear Tech's Comments PT INR VBG pH 7.32 VBG pCO2 54 VBG pO2 76 VBG HCO3 28 H VBG O2 Saturation 94.0 VBG Base Excess 1.5 Sodium Potassium Chloride Carbon Dioxide Anion Gap BUN Creatinine Estim Creat Clear Calc Estimated GFR POC Glucose 198 H 263 H Random Glucose Lactic Acid Lactic Acid F/U @ 2Hr Lactic Acid F/U @ 4Hr Calcium Phosphorus Magnesium Total Bilirubin AST ALT Alkaline Phosphatase Total Creatine Kinase Troponin I High Sens Total Protein Albumin Beta-Hydroxybutyrate TSH Urine Color Urine Appearance Urine pH Ur Specific [place] Urine Protein Urine Glucose (UA) Urine Ketones Urine Blood Urine Nitrite Ur Leukocyte Esterase Urine RBC Urine WBC Ur Squamous Epith Cells Urine Bacteria Hyaline Casts Granular Casts Urine Opiates Screen Ur Buprenorphine Scrn Ur Oxycodone Screen Urine Methadone Screen Urine Fentanyl Screen Ur Barbiturates Screen Ur Phencyclidine Scrn Ur Amphetamines Screen U Benzodiazepines Scrn Urine Cocaine Screen U Marijuana (THC) Screen Ethyl Alcohol 04/30/24 10:22 WBC RBC Hgb Hct MCV MCH MCHC RDW Plt Count MPV Immature Gran % (Auto) Neut % (Auto) Lymph % (Auto) [place] % (Auto) Eos % (Auto) Baso % (Auto) Lymph # (Auto) [place] # (Auto) Eos # (Auto) Baso # (Auto) Abs Immat Gran (auto) Absolute Neuts (auto) Absolute Nucleated RBC Nucleated RBC % (auto) Smear Tech's Comments PT INR VBG pH VBG pCO2 VBG pO2 VBG HCO3 VBG O2 Saturation VBG Base Excess Sodium Potassium Chloride Carbon Dioxide Anion Gap BUN Creatinine Estim Creat Clear Calc Estimated GFR POC Glucose 262 H Random Glucose Lactic Acid Lactic Acid F/U @ 2Hr Lactic Acid F/U @ 4Hr Calcium Phosphorus Magnesium Total Bilirubin AST ALT Alkaline Phosphatase Total Creatine Kinase Troponin I High Sens Total Protein Albumin Beta-Hydroxybutyrate TSH Urine Color Urine Appearance Urine pH Ur Specific [place] Urine Protein Urine Glucose (UA) Urine Ketones Urine Blood Urine Nitrite Ur Leukocyte Esterase Urine RBC Urine WBC Ur Squamous Epith Cells Urine Bacteria Hyaline Casts Granular Casts Urine Opiates Screen Ur Buprenorphine Scrn Ur Oxycodone Screen Urine Methadone Screen Urine Fentanyl Screen Ur Barbiturates Screen Ur Phencyclidine Scrn Ur Amphetamines Screen U Benzodiazepines Scrn Urine Cocaine Screen U Marijuana (THC) Screen Ethyl Alcohol Progress Note: A&P Assessment and plan (1) Delirium tremens: Status: Acute (2) Hyponatremia: Status: Acute (3) DARRELL (acute kidney injury): Status: Acute (4) Transaminitis: Status: Acute Plan Assessment: 58-year-old gentleman being admitted with alcohol withdrawal further complicated by acute hyponatremia likely secondary to beer potomania, acute renal failure with metabolic acidosis and hypoglycemia Plan: Neuro: Alcohol withdrawal, continue to titrate off Precedex drip, continue with phenobarbital protocol. Cardiac: No acute issues. Pulmonary: No acute issues. Renal: Acute renal failure with metabolic acidosis and hyponatremia, improving. Non oliguric. Continue to monitor renal indices and urine output. Likely underlying beer potomania. Endo: No acute issues. Underlying diabetes mellitus, sliding insulin. GI: No acute issues. ID: No acute issues Heme/Onc: No acute issues. Psych: No acute issues. Miscellaneous: No acute issues. Prophylaxis: Heparin Diet: NPO Critical care time spent: 45 minute Quality Stroke Does the patient have a stroke diagnosis?: No VTE Prior VTE?: No VTE Risk Level:: Medical - moderate - high VTE Device Contraindication: Treatment Not Indicated VTE Drug Contraindication: N/A - Med Ordered
--- NOTE | 2024-04-30 11:16 | MHC.CM.PN ---
Attempted to meet with pt to discuss d/c planning needs: Pt sedated and unable to participate. Call placed to pt's sister/HCP Rachel who states pt resides alone, is independent and has no services or DME. Rachel cites a long hx of ETOH abuse and depression r/t health issues (cancer x2 and DM) She states pt has been to several inpt ETOH tx centers in the past including [facility]. Rachel states family is worried for pt's safety and feels pt is a risk for self harm. Pt will need to be seen by CARE team when medically stable for ? INPT tx. Family will transport. IMM and HCP in chart. PCP Dr. Fierro CM to follow
[2024-04-30] MEDS: dexmedeTOMIDidine HCL/NS 400 MCG/100 ML INFUS..BTL 27.28 MCG IVCONT ×3 (11:19→20:51)
[2024-04-30 11:22] LABS: Glucose, Whole Blood 288 mg/dL (60-115)
[2024-04-30 12:16] LABS: Anion Gap 14 (12-20); Blood Urea Nitrogen 44 mg/dL (9-16); Calcium 7.9 mg/dL (8.4-10.2); Carbon Dioxide 28 mmol/L (22-29); Chloride 93 mmol/L (96-108); Creatinine Clr Calc Pharmacy 62.1; Estimated Glomerular Filt Rate 48; Glucose Random 254 mg/dL (60-115); Potassium 3.8 mmol/L (3.3-5.1); Sodium 131 mmol/L (135-145)
[2024-04-30] MEDS: PHENobarbitaL sodium 130 MG/ML IM ONCE 292 MG IM (12:43)
[2024-04-30] MEDS: Insulin Lispro 100 UNIT/ML 3 ML VIAL SUBCUT ×3 (12:46→23:32)
[2024-04-30 14:09] LABS: Glucose, Whole Blood 252 mg/dL (60-115)
[2024-04-30] MEDS: PHENobarbitaL sodium 130 MG/ML VIAL IM Q3Hx2 219 MG IM ×2 (15:11→17:56)
[2024-04-30 16:13] LABS: Glucose, Whole Blood 204 mg/dL (60-115)
[2024-04-30 17:02] LABS: Anion Gap 14 (12-20); Blood Urea Nitrogen 38 mg/dL (9-16); Calcium 8.1 mg/dL (8.4-10.2); Carbon Dioxide 29 mmol/L (22-29); Chloride 96 mmol/L (96-108); Creatinine Clr Calc Pharmacy 71.6; Estimated Glomerular Filt Rate 56; Glucose Random 176 mg/dL (60-115); Potassium 4.1 mmol/L (3.3-5.1); Sodium 135 mmol/L (135-145)
[2024-04-30 18:26] LABS: Glucose, Whole Blood 252 mg/dL (60-115)
--- NOTE | 2024-04-30 19:00 | PC.NURSE ---
assumed care 0700 on 04/30/24. patient lethargic, but wakes to firm shaking. patient disoriented, disorganized thinking, using profanity, but able to be redirected and following simple commands. patient was hypoxic on 15L oxymask on initial assessment in the high 80s(%). MD made aware. repositioning, chest PT, deep breathing and coughing done. patient had coarse crackles posteriorly, transitioned to non-rebreather at 15L, and repositioned with R lung down.... sats improved and remained mid 90s(%) for remainder of shift. additionally around 10:00, MD made aware of patient dumping urine (see I+O). MD ordered stat BMP. Consulted with MD on results of BMP and persistently high urine output. MD ordered Desmopressin 1mcg IVP. patients urine output decreased to an average of 100ml/hr. MD also ordered to pause D10 for elevated blood glucose. (see MAR) titrated DEX to meed RASS goal. see shift assessment and see MAR for additional information.
[2024-04-30 21:19] LABS: Hematocrit 34.9 % (42.0-52.0); Hemoglobin 12.1 g/dl (14.0-18.0); Mean Corpuscular HGB Conc 34.7 g/dl (31.0-36.0); Mean Corpuscular Hemoglobin 32.8 pg (27.0-33.0); Mean Corpuscular Volume 94.6 fL (80.0-98.0); Mean Platelet Volume 10.1 fL (9.4-12.4); Red Blood Count 3.69 X10*6/uL (4.60-5.80); Red Cell Distribution Width 15.7 % (11.0-16.0); White Blood Count 8.2 X10*3/uL (4.8-10.8)
[2024-04-30 21:20] LABS: Platelet Count 80 X10*3/uL (160-400)
[2024-04-30 21:33] LABS: Albumin Level 3.5 g/dL (3.5-5.0); Anion Gap 14 (12-20); Blood Urea Nitrogen 31 mg/dL (9-16); Calcium 7.7 mg/dL (8.4-10.2); Carbon Dioxide 28 mmol/L (22-29); Chloride 99 mmol/L (96-108); Creatinine Clr Calc Pharmacy 80.9; Estimated Glomerular Filt Rate > 60; Glucose Random 161 mg/dL (60-115); Magnesium 1.5 mg/dL (1.6-2.6); Phosphorus 2.8 mg/dL (2.7-4.5); Sodium 137 mmol/L (135-145)
[2024-04-30] MEDS: propofoL 200 MG/20 ML VIAL 100 MG IVPUSH (21:55)
[2024-04-30] MEDS: propofoL 1,000 MG/100 ML VIAL 17.86 MG IVCONT (21:56)
[2024-04-30] MEDS: Etomidate 20 MG/10 ML VIAL IVPUSH (22:03)
--- NOTE | 2024-04-30 22:21 | W.PM.CCHP ---
Procedures Date of Service Date of Service: 04/30/24 <Ned Padilla NP - Last Filed: 04/30/24 22:49> 05/01/24 <Pal Lord MD - Last Filed: 05/01/24 10:10> Intubation Intubation Comments: Patient reports emergent intubation due to worsening alcohol withdrawal syndrome. Patient intubated with 8 cuffed ET tube under glide scope guidance with visualization of vocal cords, without immediate complications. ET w tube position verified with Chest XRAY. <Ned Padilla NP - Last Filed: 04/30/24 22:49> Consent for Procedure: Emergent-no informed consent obtained <Ned Padilla NP - Last Filed: 04/30/24 22:49> Time out performed: Yes <Ned Padilla NP - Last Filed: 04/30/24 22:49> Sedative: propofol <Ned Padilla NP - Last Filed: 04/30/24 22:49> Mg given: 100 <Ned Padilla NP - Last Filed: 04/30/24 22:49> Laryngoscope: fiber optic video scope <Ned Padilla NP - Last Filed: 04/30/24 22:49> ET tube size: 8 <Ned Padilla NP - Last Filed: 04/30/24 22:49> ET tube uncuffed: No <Ned Padilla NP - Last Filed: 04/30/24 22:49> Tube secured depth (cm): 26 <Ned Padilla NP - Last Filed: 04/30/24 22:49> Tube secured location: lips <Ned Padilla NP - Last Filed: 04/30/24 22:49> Tube placement confirmation: visualized tube passing through cords, equal breath sounds bilaterally, no breath sounds over epigastrium and confirmation by capnometry <Ned Padilla NP - Last Filed: 04/30/24 22:49> Patient tolerated procedure: well <Ned Padilla NP - Last Filed: 04/30/24 22:49> Intubation complications: none <Ned Padilla NP - Last Filed: 04/30/24 22:49>
--- NOTE | 2024-04-30 22:56 | PM.EVENT ---
Documented by User: Ned Padilla NP 04/30/24 22:57 Event Note Date of Service: 04/30/24 Event Note: Patient requiring emergent intubation due to worsening alcohol withdrawal syndrome/ DTs. Hypotension r/t sedation. Sister Rachel, updated over the phone Time Spent With Patient Time: Total time managing care of this patient today ____ minutes. Documented by User: Pal Lord MD 05/01/24 10:10 Event Note Date of Service: 05/01/24
[2024-04-30] MEDS: Magnesium Sulfate/H2O 2 GM/50 ML PIGGYBACK IV (22:57)
[2024-04-30] MEDS: Dextrose 5 % 500 ML 125 ML IVCONT (23:00)
[2024-04-30] MEDS: dexmedeTOMIDidine HCL/NS 400 MCG/100 ML INFUS..BTL 37.2 MCG IVCONT (23:27)
[2024-04-30 23:37] LABS: Glucose, Whole Blood 190 mg/dL (60-115)
[2024-05-01] VITALS (36 sets, daily range): BP systolic 120–158; BP diastolic 81–103; PULSE 71–78; RESP 16–25; TEMP 34.8–36.7; O2SAT 90–98; BMI 31.4
[2024-05-01] MEDS: propofoL 1,000 MG/100 ML VIAL 29.76 MG IVCONT ×8 (00:31→23:36)
[2024-05-01] MEDS: dexmedeTOMIDidine HCL/NS 400 MCG/100 ML INFUS..BTL 37.2 MCG IVCONT ×9 (02:06→22:11)
--- NOTE | 2024-05-01 03:11 | PC.NURSE ---
Upon initial assessment at 1900- pt on precedex gtt, resting quietly, titrated down per MAR. On 15L/100% NRB to maintain SpO2 > 92%, RR 10-12, LS with rhonchi throughout and fine crackles to B/L bases, unable to TCDB. At approx 2099- pt becoming increasing restless/agitated, removing oxygen, hallucinating, attempting to get OOB, precedex gtt increased per MAR d/t RASS +1/2. At approx 2114- pt continued to become agitated, impulsive, non-redirectable, pulling off oxygen and desaturating to 80s, precedex gtt titrated to max per BRAKE LINING CURER Valerie. At approx 2129- pt with same behavior, CIWA 33, versed 2 mg IVP ordered x1. Versed given with minimal effect- decision made to intubate by BRAKE LINING CURER. At 2154, propofol 100 mg IVP given total for intubation and gtt started for sedation. ETT #8.0, 26 cm at lip, on ACVC settings. Placement confirmed by pCXR. Unable to place OGT, BRAKE LINING CURER aware. Sister Rachel/HCP called and updated on pt status/plan of care. See EMR/flowsheet for further details.
[2024-05-01 04:50] LABS: VBG Base Excess 8.9 mmol/L; VBG HCO3 32 mmol/L (22-26); VBG pCO2 39 mmHg; VBG pH 7.52 (7.32-7.43); VBG pO2 70 mmHg
[2024-05-01 05:05] LABS: MANUAL DIFF FLAG NO
[2024-05-01 05:16] LABS: Basophils Percent Auto 0.4 % (0-2); Eosinophils Absolute Auto 0.1 X10*3/uL (0.0-0.4); Eosinophils Percent Auto 0.9 % (0-4); Hemoglobin 13.7 g/dl (14.0-18.0); Imm Gran Pct Auto 1.5 % (0.0-0.4); Lymphocytes Absolute Auto 0.7 X10*3/uL (1.2-4.9); Lymphocytes Percent Auto 9.9 % (20-40); Mean Corpuscular HGB Conc 36.1 g/dl (31.0-36.0); Mean Corpuscular Hemoglobin 33.3 pg (27.0-33.0); Mean Corpuscular Volume 92.2 fL (80.0-98.0); Monocytes Absolute Auto 0.2 X10*3/uL (0.1-1.2); Monocytes Percent Auto 2.8 % (2-11); Neutrophils Absolute Auto 5.7 x10*3/uL (2.0-8.3); Neutrophils Percent Auto 84.5 % (45-73); Platelet Count 77 X10*3/uL (160-400); Red Blood Count 4.12 X10*6/uL (4.60-5.80); Red Cell Distribution Width 15.6 % (11.0-16.0); White Blood Count 6.8 X10*3/uL (4.8-10.8)
[2024-05-01 05:44] LABS: Alanine Aminotransferase 115 U/L (0-40); Albumin Level 3.5 g/dL (3.5-5.0); Alkaline Phosphatase 585 U/L (39-117); Anion Gap 19 (12-20); Aspartate Amino Transferase 158 U/L (5-37); Bilirubin Total 2.6 mg/dL (0.0-1.0); Blood Urea Nitrogen 25 mg/dL (9-16); Calcium 8.9 mg/dL (8.4-10.2); Carbon Dioxide 27 mmol/L (22-29); Chloride 93 mmol/L (96-108); Creatinine Clr Calc Pharmacy 85.3; Estimated Glomerular Filt Rate > 60; Glucose Random 215 mg/dL (60-115); Magnesium 1.8 mg/dL (1.6-2.6); Phosphorus 1.6 mg/dL (2.7-4.5); Potassium 3.7 mmol/L (3.3-5.1); Sodium 135 mmol/L (135-145); Total Protein 7.1 g/dL (6.5-8.0)
[2024-05-01 05:55] LABS: Venous Blood Gas Refer to POC result
[2024-05-01] MEDS: Insulin Lispro 100 UNIT/ML 3 ML VIAL SUBCUT ×3 (05:59→18:26)
[2024-05-01] MEDS: Midazolam HCl 2 MG/2 ML VIAL IVPUSH ×2 (06:35)
[2024-05-01] MEDS: fentaNYL citrate/PF 100 MCG/2 ML VIAL IVPUSH ×2 (06:35→23:28)
[2024-05-01] MEDS: Potassium Phosphate/NS 15 MMOL/250 ML PLAST..BAG 62.5 MMOL IV ×2 (07:08→21:01)
[2024-05-01] MEDS: 0.9 % Sodium Chloride Flush 3 ML SYRINGE IVFLUSH ×3 (07:32→19:55)
[2024-05-01] MEDS: Famotidine/PF 20 MG/2 ML VIAL IVPUSH (08:09)
[2024-05-01] MEDS: Chlorhexidine Gluc Oral Rinse 15 ML MOUTHWASH BUCCAL ×3 (08:09→19:55)
--- NOTE | 2024-05-01 10:10 | PM.CCPN ---
Subjective Subjective Date of Service: 05/01/24 Interval History: 58-year-old gentleman with underlying alcohol dependence, obesity, diabetes mellitus being admitted for hyperglycemia and alcohol withdrawal on background of acute metabolic acidosis with acute renal failure and hyponatremia likely secondary to beer potomania. Overnight with worsening delirium tremens requiring intubation and ventilatory support for high-dose sedative drips. Critical Care Time (minutes): 60 Physical Exam Vital Signs: Vital Signs: Last Vital Signs Temp 98 F 05/01/24 08:00 Pulse 73 05/01/24 09:00 Resp 18 05/01/24 09:00 BP 157/99 H 05/01/24 09:00 Pulse Ox 96 05/01/24 09:00 O2 Del Method Mechanical Ventil ation 05/01/24 09:00 O2 Flow Rate 15 04/30/24 21:00 FiO2 65 05/01/24 09:00 BMI result Body Mass Index 31.4 Const: General: no acute distress and other (Sedated on the vent) Eyes: Sclerae: sclerae normal EOM: EOMs intact bilaterally Neck: Neck: Yes no lymphadenopathy, Yes trachea midline and Yes supple Resp: Effort & Inspection: normal respiratory effort and no respiratory distress Auscultation: crackles (Mild bilateral) Cardio: Rate: regular rate Rhythm: regular rhythm Heart sounds: no gallops, no murmurs and no rubs GI: Palpation (GI): Soft to palpation and Other GI palpation findings present ( Nontender) Auscultation: normal bowel sounds Extrem: General: No clubbing, No cyanosis and Yes edema (Trace bilateral) Objective Data Labs 05/01/24 04:37 05/01/24 04:37 Labs: Laboratory Results - last 24 hr 04/30/24 04/30/24 04/30/24 10:22 11:13 11:19 WBC RBC Hgb Hct MCV MCH MCHC RDW Plt Count MPV Immature Gran % (Auto) Neut % (Auto) Lymph % (Auto) [place] % (Auto) Eos % (Auto) Baso % (Auto) Lymph # (Auto) [place] # (Auto) Eos # (Auto) Baso # (Auto) Abs Immat Gran (auto) Absolute Neuts (auto) Absolute Nucleated RBC Nucleated RBC % (auto) VBG pH VBG pCO2 VBG pO2 VBG HCO3 VBG O2 Saturation VBG Base Excess Sodium 131 L Potassium 3.8 Chloride 93 L Carbon Dioxide 28 Anion Gap 14 BUN 44 H Creatinine 1.51 H Estim Creat Clear Calc 62.1 Estimated GFR 48 POC Glucose 262 H 288 H Random Glucose 254 H Calcium 7.9 L D Phosphorus Magnesium Total Bilirubin AST ALT Alkaline Phosphatase Total Protein Albumin 04/30/24 04/30/24 04/30/24 14:06 16:10 16:40 WBC RBC Hgb Hct MCV MCH MCHC RDW Plt Count MPV Immature Gran % (Auto) Neut % (Auto) Lymph % (Auto) [place] % (Auto) Eos % (Auto) Baso % (Auto) Lymph # (Auto) [place] # (Auto) Eos # (Auto) Baso # (Auto) Abs Immat Gran (auto) Absolute Neuts (auto) Absolute Nucleated RBC Nucleated RBC % (auto) VBG pH VBG pCO2 VBG pO2 VBG HCO3 VBG O2 Saturation VBG Base Excess Sodium 135 Potassium 4.1 Chloride 96 Carbon Dioxide 29 Anion Gap 14 BUN 38 H Creatinine 1.31 Estim Creat Clear Calc 71.6 Estimated GFR 56 POC Glucose 252 H 204 H Random Glucose 176 H Calcium 8.1 L Phosphorus Magnesium Total Bilirubin AST ALT Alkaline Phosphatase Total Protein Albumin 04/30/24 04/30/24 04/30/24 18:18 21:05 23:28 WBC 8.2 RBC 3.69 L Hgb 12.1 L Hct 34.9 L MCV 94.6 MCH 32.8 MCHC 34.7 RDW 15.7 Plt Count 80 L MPV 10.1 Immature Gran % (Auto) Neut % (Auto) Lymph % (Auto) [place] % (Auto) Eos % (Auto) Baso % (Auto) Lymph # (Auto) [place] # (Auto) Eos # (Auto) Baso # (Auto) Abs Immat Gran (auto) Absolute Neuts (auto) Absolute Nucleated RBC 0.000 Nucleated RBC % (auto) 0.0 VBG pH VBG pCO2 VBG pO2 VBG HCO3 VBG O2 Saturation VBG Base Excess Sodium 137 Potassium 4.0 Chloride 99 Carbon Dioxide 28 Anion Gap 14 BUN 31 H Creatinine 1.16 Estim Creat Clear Calc 80.9 Estimated GFR > 60 POC Glucose 252 H 190 H Random Glucose 161 H Calcium 7.7 L Phosphorus 2.8 Magnesium 1.5 L Total Bilirubin AST ALT Alkaline Phosphatase Total Protein Albumin 3.5 05/01/24 05/01/24 04:37 04:45 WBC 6.8 RBC 4.12 L Hgb 13.7 L Hct 38.0 L MCV 92.2 MCH 33.3 H MCHC 36.1 H RDW 15.6 Plt Count 77 L MPV 11.0 Immature Gran % (Auto) 1.5 H Neut % (Auto) 84.5 H Lymph % (Auto) 9.9 L [place] % (Auto) 2.8 Eos % (Auto) 0.9 Baso % (Auto) 0.4 Lymph # (Auto) 0.7 L [place] # (Auto) 0.2 Eos # (Auto) 0.1 Baso # (Auto) 0.0 Abs Immat Gran (auto) 0.10 H Absolute Neuts (auto) 5.7 Absolute Nucleated RBC 0.000 Nucleated RBC % (auto) 0.0 VBG pH 7.52 H VBG pCO2 39 VBG pO2 70 VBG HCO3 32 H VBG O2 Saturation 94.0 VBG Base Excess 8.9 Sodium 135 Potassium 3.7 Chloride 93 L Carbon Dioxide 27 Anion Gap 19 BUN 25 H Creatinine 1.10 Estim Creat Clear Calc 85.3 Estimated GFR > 60 POC Glucose Random Glucose 215 H Calcium 8.9 D Phosphorus 1.6 L Magnesium 1.8 Total Bilirubin 2.6 H AST 158 H ALT 115 H Alkaline Phosphatase 585 H Total Protein 7.1 Albumin 3.5 Microbiology Microbiology Results: Microbiology 04/29/24 10:33 Blood - Venous Blood Culture - Preliminary No growth after 24 hours. 04/29/24 10:33 Blood - Venous Blood Culture - Preliminary No growth after 24 hours. Progress Note: A&P Assessment and plan (1) Delirium tremens: Status: Acute (2) DARRELL (acute kidney injury): Status: Acute (3) Transaminitis: Status: Acute (4) Pulmonary aspiration: Status: Acute (5) Acute respiratory failure with hypoxia: Status: Acute Plan Assessment: 58-year-old gentleman being admitted with alcohol withdrawal further complicated by acute hyponatremia likely secondary to beer potomania, acute renal failure with metabolic acidosis and hypoglycemia Plan: Neuro: Alcohol withdrawal, continue to titrate off sedative drips as tolerated. Cardiac: No acute issues. Pulmonary: Required intubation for high-dose sedative drips and also hypoxia secondary to pulmonary aspiration. Continue to titrate off ventilatory support as tolerated. Renal: Acute renal failure with metabolic acidosis and hyponatremia, improving. Non oliguric. Continue to monitor renal indices and urine output. Likely underlying beer potomania. Endo: No acute issues. Underlying diabetes mellitus, sliding scale insulin. Underlying hypothyroidism, continue Synthroid. GI: Transaminitis improving. ID: No acute issues Heme/Onc: No acute issues. Psych: No acute issues. Miscellaneous: No acute issues. Prophylaxis: Heparin, famotidine Diet: Tube feeds Critical care time spent: 60 minutes Quality Stroke Does the patient have a stroke diagnosis?: No VTE Prior VTE?: No VTE Risk Level:: Medical - moderate - high VTE Device Contraindication: Treatment Not Indicated VTE Drug Contraindication: N/A - Med Ordered
[2024-05-01] MEDS: Insulin Glargine,Hum.rec.anlog 100 UNIT/ML 10 ML VIAL 10 UNIT SUBCUT (11:51)
[2024-05-01 12:54] LABS: Glucose, Whole Blood 209 mg/dL (60-115)
[2024-05-01] MEDS: Midazolam HCl 2 MG/2 ML VIAL 4 MG IVPUSH ×2 (13:33→21:26)
[2024-05-01] MEDS: Heparin Sodium,Porcine 5,000 UNIT/ML VIAL 5000 UNIT SUBCUT (14:00)
[2024-05-01 18:28] LABS: Glucose, Whole Blood 166 mg/dL (60-115)
--- NOTE | 2024-05-01 18:33 | PC.NURSE ---
assumed care 0700 on 05/01/24. patinent intubated, sedated, and stable on vent at time of arrival. on initial assessment the patient appeared to be deeply sedated... however becomes spontaneously agitated... sits up in bed, looks around the room frantically, attempting to remove airway, reaching for staff and mouthing words to staff at the bedside. therapeutic communication and calming environment applied with no effect. all sedation and one time medications given per MAR for vent synchrony, alcohol withdrawal and agitation, non-behavioral restraints per protocol and need for restraint regularly. patient O2 sats remain mid 90s through shift. normal sinus rhythm on monitor. patient remains to urinate red tinged and bloody status post leong attempt. male external changed due to being soiled more frequently. patient stable on vent and vitals stable at time of RN to RN report.
[2024-05-01 20:32] LABS: Anion Gap 20 (12-20); Blood Urea Nitrogen 15 mg/dL (9-16); Calcium 8.6 mg/dL (8.4-10.2); Carbon Dioxide 27 mmol/L (22-29); Chloride 93 mmol/L (96-108); Creatinine Clr Calc Pharmacy 99.9; Estimated Glomerular Filt Rate > 60; Glucose Random 156 mg/dL (60-115); Magnesium 1.2 mg/dL (1.6-2.6); Phosphorus 1.5 mg/dL (2.7-4.5); Potassium 3.3 mmol/L (3.3-5.1); Sodium 137 mmol/L (135-145)
[2024-05-01] MEDS: Magnesium Sulfate/D5W 1 GM/100 ML PIGGYBACK IV (20:58)
[2024-05-02] VITALS (41 sets, daily range): BP systolic 110–148; BP diastolic 72–98; PULSE 70–124; RESP 18–32; TEMP 24.5–36.9; O2SAT 88–98; BMI 30.4
[2024-05-02] LABS: Glucose, Whole Blood 146 mg/dL (60-115)
[2024-05-02] MEDS: dexmedeTOMIDidine HCL/NS 400 MCG/100 ML INFUS..BTL 37.2 MCG IVCONT ×10 (00:38→23:09)
[2024-05-02] MEDS: Potassium Phosphate/NS 15 MMOL/250 ML PLAST..BAG 62.5 MMOL IV (01:17)
[2024-05-02] MEDS: propofoL 1,000 MG/100 ML VIAL 29.76 MG IVCONT ×8 (02:46→23:04)
--- NOTE | 2024-05-02 03:20 | PC.NURSE ---
Addendum entered by Martín Fuentes RN 05/02/24 06:23: PURWIK CATHETER DRAINED ADDITIONAL 750ML 12AM-6AM..REMAINS WITH HEMATURIA BUT LESS PRONOUNCED..HS HEPARIN PREVIOUSLY HELD BY PROVIDER...AM PLATELETS=71...HEPARIN SC PLACED ON HOLD BY PROVIDER Original Note: CARE ASSUMED 7PM...REMAINS TUBED/VENTED VCV VENT SUPPORT...PROPOFOL 50 MCG/KG/MIN AND PRECIDEX 1.5 MCG/KG/HR...SEDATE BUT PERIODS OF AGITATION..ATTEMPTING TO SIT UP IN BED AND PULL AT LINES..VERSED 4MG IV@ 21:26....REPEAT PERIOD OF AGITATION AND FENTANYL 100 MCG IVP GIVEN 2327....PRN VERSED 4MG IV Q4H ORDERED BY PROVIDER....PURWIK EXTERNAL CATHETER COLLECTING BLOODY URINE...6PM TO 12AM 650ml OUTPUT..PROVIDER AWARE...KPO4 AND MGSO4 INFUSED PER APR...NSR..NO ECTOPY
[2024-05-02 03:55] LABS: HBc Num1 0.16 S/CO (0.00-0.79); HBsAGNum1 0.34 S/CO (0.00-0.99); Hepatitis A Antibody IgM 0.14 Index (0-0.79); Hepatitis B Core Antibody Nonreactive (Nonreactive); Hepatitis B Surface Antigen Negative (Negative); ~HepC Num1 0.08 S/CO (0.00-0.79); ~Hepatitis A Antibody IgM Nonreactive (Nonreactive); ~Hepatitis B Surface Antibody NONREACTIVE (Nonreactive); ~Hepatitis C Antibody Nonreactive (Nonreactive)
[2024-05-02] MEDS: Midazolam HCl 2 MG/2 ML VIAL 4 MG IVPUSH ×4 (04:25→20:00)
[2024-05-02 05:39] LABS: VBG Base Excess 4.7 mmol/L; VBG HCO3 28 mmol/L (22-26); VBG pCO2 40 mmHg; VBG pH 7.45 (7.32-7.43); VBG pO2 62 mmHg
[2024-05-02 05:52] LABS: MANUAL DIFF FLAG NO
[2024-05-02 05:53] LABS: Venous Blood Gas Refer to POC result
[2024-05-02 06:09] LABS: Alanine Aminotransferase 82 U/L (0-40); Alkaline Phosphatase 579 U/L (39-117); Anion Gap 22 (12-20); Aspartate Amino Transferase 102 U/L (5-37); Bilirubin Total 2.6 mg/dL (0.0-1.0); Blood Urea Nitrogen 13 mg/dL (9-16); Calcium 8.2 mg/dL (8.4-10.2); Carbon Dioxide 24 mmol/L (22-29); Chloride 96 mmol/L (96-108); Creatinine Clr Calc Pharmacy 84.8; Estimated Glomerular Filt Rate > 60; Glucose Random 144 mg/dL (60-115); Phosphorus 3.5 mg/dL (2.7-4.5); Potassium 3.9 mmol/L (3.3-5.1); Sodium 138 mmol/L (135-145)
[2024-05-02 06:11] LABS: Basophils Percent Auto 0.6 % (0-2); Eosinophils Absolute Auto 0.1 X10*3/uL (0.0-0.4); Hematocrit 39.2 % (42.0-52.0); Hemoglobin 13.7 g/dl (14.0-18.0); Imm Gran Abs Auto 0.07 X10*3/uL (0.00-0.03); Imm Gran Pct Auto 1.1 % (0.0-0.4); Lymphocytes Absolute Auto 0.9 X10*3/uL (1.2-4.9); Lymphocytes Percent Auto 14.6 % (20-40); Mean Corpuscular HGB Conc 34.9 g/dl (31.0-36.0); Mean Corpuscular Hemoglobin 32.9 pg (27.0-33.0); Mean Corpuscular Volume 94.2 fL (80.0-98.0); Mean Platelet Volume 10.9 fL (9.4-12.4); Monocytes Absolute Auto 0.2 X10*3/uL (0.1-1.2); Monocytes Percent Auto 3.4 % (2-11); Neutrophils Percent Auto 78.3 % (45-73); Red Blood Count 4.16 X10*6/uL (4.60-5.80); Red Cell Distribution Width 15.9 % (11.0-16.0); White Blood Count 6.4 X10*3/uL (4.8-10.8)
[2024-05-02 06:12] LABS: Platelet Count 71 X10*3/uL (160-400)
[2024-05-02 06:17] LABS: Magnesium 1.3 mg/dL (1.6-2.6)
[2024-05-02 06:18] LABS: Glucose, Whole Blood 165 mg/dL (60-115)
[2024-05-02] MEDS: Magnesium Sulfate/H2O 2 GM/50 ML PIGGYBACK IV ×2 (06:27→10:43)
[2024-05-02] MEDS: 0.9 % Sodium Chloride Flush 3 ML SYRINGE IVFLUSH ×3 (07:44→23:04)
[2024-05-02] MEDS: Chlorhexidine Gluc Oral Rinse 15 ML MOUTHWASH BUCCAL ×3 (07:52→20:49)
[2024-05-02] MEDS: Famotidine/PF 20 MG/2 ML VIAL IVPUSH (07:52)
[2024-05-02] MEDS: Insulin Glargine,Hum.rec.anlog 100 UNIT/ML 10 ML VIAL 10 UNIT SUBCUT (07:52)
--- NOTE | 2024-05-02 08:45 | PM.CCPN ---
Subjective Subjective Date of Service: 05/02/24 Critical Care Time (minutes): 35 Comment: On ventilator support this morning No new events overnight Physical Exam Vital Signs: Vital Signs: Last Vital Signs Temp 98.5 F 05/02/24 08:00 Pulse 76 05/02/24 08:00 Resp 23 H 05/02/24 08:00 BP 130/88 05/02/24 08:00 Pulse Ox 95 05/02/24 08:00 O2 Del Method Mechanical Ventil ation 05/02/24 08:00 O2 Flow Rate 15 04/30/24 21:00 FiO2 80 05/02/24 08:00 BMI result Body Mass Index 30.4 General: In my acute distress, ill appearing and tired appearing Nutritional Appearance: well nourished and overweight Eyes: appearance normal, both eyes and all related structures; Alignment and Position: alignment normal and position normal Neck: No lymphadenopathy, no thyromegaly Resp: bilateral air entry equal, occasional added sounds present Cardio: Regular rate, regular rhythm; Heart sounds: S1 normal heart sound present and S2 normal heart sound present GI: soft, nontender, no guarding, no hepatosplenomegaly : bladder normal to inspection, bladder normal to palpation, no renal angle tenderness Skin: no rashes or lesions noted and elasticity normal Neuro: Sedated, no focal deficits, moves all extremities Objective Data Labs 05/02/24 05:35 05/02/24 05:35 Labs: Laboratory Results - last 24 hr 04/29/24 05/01/24 05/01/24 13:39 12:50 18:21 WBC RBC Hgb Hct MCV MCH MCHC RDW Plt Count MPV Immature Gran % (Auto) Neut % (Auto) Lymph % (Auto) [place] % (Auto) Eos % (Auto) Baso % (Auto) Lymph # (Auto) [place] # (Auto) Eos # (Auto) Baso # (Auto) Abs Immat Gran (auto) Absolute Neuts (auto) Absolute Nucleated RBC Nucleated RBC % (auto) VBG pH VBG pCO2 VBG pO2 VBG HCO3 VBG O2 Saturation VBG Base Excess Sodium Potassium Chloride Carbon Dioxide Anion Gap BUN Creatinine Estim Creat Clear Calc Estimated GFR POC Glucose 209 H 166 H Random Glucose Calcium Phosphorus Magnesium Total Bilirubin AST ALT Alkaline Phosphatase Total Protein Albumin Hepatitis A IgM Ab Nonreactive Hep Bs Antigen Negative Hep Bs Antibody NONREACTIVE Hep B Core Total Ab Nonreactive Hepatitis C Ab (EIA) Nonreactive 05/01/24 05/01/24 05/02/24 19:46 23:52 05:33 WBC RBC Hgb Hct MCV MCH MCHC RDW Plt Count MPV Immature Gran % (Auto) Neut % (Auto) Lymph % (Auto) [place] % (Auto) Eos % (Auto) Baso % (Auto) Lymph # (Auto) [place] # (Auto) Eos # (Auto) Baso # (Auto) Abs Immat Gran (auto) Absolute Neuts (auto) Absolute Nucleated RBC Nucleated RBC % (auto) VBG pH 7.45 H VBG pCO2 40 VBG pO2 62 VBG HCO3 28 H VBG O2 Saturation 88.0 VBG Base Excess 4.7 Sodium 137 Potassium 3.3 Chloride 93 L Carbon Dioxide 27 Anion Gap 20 BUN 15 Creatinine 0.94 Estim Creat Clear Calc 99.9 Estimated GFR > 60 POC Glucose 146 H Random Glucose 156 H Calcium 8.6 Phosphorus 1.5 L Magnesium 1.2 L* Total Bilirubin AST ALT Alkaline Phosphatase Total Protein Albumin Hepatitis A IgM Ab Hep Bs Antigen Hep Bs Antibody Hep B Core Total Ab Hepatitis C Ab (EIA) 05/02/24 05/02/24 05:35 06:15 WBC 6.4 RBC 4.16 L Hgb 13.7 L Hct 39.2 L MCV 94.2 MCH 32.9 MCHC 34.9 RDW 15.9 Plt Count 71 L MPV 10.9 Immature Gran % (Auto) 1.1 H Neut % (Auto) 78.3 H Lymph % (Auto) 14.6 L [place] % (Auto) 3.4 Eos % (Auto) 2.0 Baso % (Auto) 0.6 Lymph # (Auto) 0.9 L [place] # (Auto) 0.2 Eos # (Auto) 0.1 Baso # (Auto) 0.0 Abs Immat Gran (auto) 0.07 H Absolute Neuts (auto) 5.0 Absolute Nucleated RBC 0.000 Nucleated RBC % (auto) 0.0 VBG pH VBG pCO2 VBG pO2 VBG HCO3 VBG O2 Saturation VBG Base Excess Sodium 138 Potassium 3.9 Chloride 96 Carbon Dioxide 24 Anion Gap 22 H BUN 13 Creatinine 1.09 Estim Creat Clear Calc 84.8 Estimated GFR > 60 POC Glucose 165 H Random Glucose 144 H Calcium 8.2 L Phosphorus 3.5 Magnesium 1.3 L* Total Bilirubin 2.6 H AST 102 H ALT 82 H Alkaline Phosphatase 579 H Total Protein 7.0 Albumin 3.0 L Hepatitis A IgM Ab Hep Bs Antigen Hep Bs Antibody Hep B Core Total Ab Hepatitis C Ab (EIA) Microbiology Microbiology Results: Microbiology 04/29/24 10:33 Blood - Venous Blood Culture - Preliminary No growth after 48 hours. 04/29/24 10:33 Blood - Venous Blood Culture - Preliminary No growth after 48 hours. Progress Note: A&P Assessment and plan (1) Alcohol abuse with withdrawal: Status: Acute (2) Delirium tremens: Status: Acute (3) DARRELL (acute kidney injury): Status: Acute (4) Metabolic acidosis: Status: Acute (5) Multifocal pneumonia: Status: Acute (6) Pulmonary aspiration: Status: Acute (7) Acute respiratory failure with hypoxia: Status: Acute Plan Neuro: Acute encephalopathy possibly due to alcohol withdrawal syndrome, likes to drink blackberry Keely. CT head upon admission negative for any intracranial pathology On propofol for sedation, as needed fentanyl for analgesia Close neurological status monitoring in the ICU every hour Cardiac: Cardiogenic Shock: Possibly secondary to positive pressure ventilation On Levophed support, titrate Levophed to keep map above 65 mm Hg Respiratory: Acute hypoxemic respiratory failure due to aspiration pneumonia CT chest showing multifocal pneumonia Currently on ventilator support On PRVC mode FiO2 40, PEEP 5, TV 380, RR 20 Peak pressures and plateau pressures are under the curve Ventilator management bundle with head end elevation, aspiration precaution, chlorhexidine mouthwash, daily awakening trials, daily spontaneous breathing trials GI: on tube feeds transaminitis: possibly secondary to alcohol liver disease Renal: Acute kidney injury possibly volume depletion, currently resolved Baseline creatinine normal, creatinine today is 0.9 We will closely monitor I's and O's Avoid nephrotoxic medications Acute hypomagnesemia: will replace with mag sulfate Heme: Chronic anemia, closely monitor H&H, transfuse for hemoglobin less than 7 grams/deciliter chronic thrombocytopenia secondary to cirrhotic physiology Endocrine: Blood sugars under control Sliding scale insulin as needed On Lantus 10 units daily Infectious disease: Negative anderson cultures Musculoskeletal: Decubitus ulcer prevention protocol Lines: Peripheral Prophylaxis: Lovenox, pantoprazole Critical care time spent is about 50 minutes on ventilator management, sedation management, vasopressor management, close hemodynamic monitoring, review of labs, review of all images. Quality Stroke Does the patient have a stroke diagnosis?: No VTE Prior VTE?: No VTE Risk Level:: Medical - moderate - high VTE Device Contraindication: Treatment Not Indicated VTE Drug Contraindication: N/A - Med Ordered
--- NOTE | 2024-05-02 09:58 | MHC.CLN ---
PT IS INTUBATED AND SEDATED PT IS CURRENTLY NPO SECONDARY TO UNABLE TO PLACE OG OR NGT DISCUSSED AT ROUNDS WITH MD PLAN FOR POSSIBLE EXTUBATION TODAY IF TF NEEDED; RECOMMEND PROMOTE AT MAX GOAL RATE 60ML/HR TO PROVIDE 1440KCALS (2226KCALS WITH SEDATION; 27KCALS/KG), 90G PROTEIN (1.09G/KG), 1208ML FREE WATER FROM FORMULA FOLLOWING FOR DIET ADVANCEMENT SEE ALSO FULL CLINICAL NUTRITION ASSESSMENT
[2024-05-02 11:30] LABS: Glucose, Whole Blood 144 mg/dL (60-115)
[2024-05-02] MEDS: PHENobarbitaL sodium 130 MG/ML VIAL IM ×2 (13:48→19:55)
[2024-05-02] MEDS: Thiamine HCL 500 MG in 0.9 % Sodium Chloride 100 ML 210 MG IV (14:23)
--- NOTE | 2024-05-02 14:38 | MHC.CM.PN ---
PER MD ROUNDS, PT REMAINS ON VENTILATORY SUPPORT. CM WILL CONTINUE TO FOLLOW FOR ANY CHANGE TO DC NEEDS.
[2024-05-02 17:38] LABS: Glucose, Whole Blood 90 mg/dL (60-115)
--- NOTE | 2024-05-02 18:11 | HO.SKINPHOTO ---
Location:[place] aspect L foot Category: Stage: Length: Width: Depth: cm Location: Lateral R ankle Category: Stage: Length: Width: Depth: cm Location: Bilateral knees Category: Stage: Length: Width: Depth: cm Location: Category: Stage: Length: Width: Depth: cm Location: Category: Stage: Length: Width: Depth: cm Location: Category: Stage: Length: Width: Depth: cm
--- NOTE | 2024-05-02 18:16 | HE.ICUCC ---
ICU Critical Care Nursing Note ICU Day #: Vent Day #: Neuro: Patient delerious, attempting to remove tubes and lintes; unable to redirect. Propofol and dex gtts running at max. Patient given PRN versed and phenobarbitol pushes for episodes of agitation per Dr Huertas with positive affect. Continue with soft wrist restraints for safety. Cardiac: Resp: Vent settings changed to PSV; patient tolerating well. No signs of respiratory distress noted GI/:Patient continues to have hematuria. Dr Huertas aware Integumentary/Musculoskeletal: Updated photos taken of skin, dressings remain off; wounds open to air. No new signs of infection noted
[2024-05-03] VITALS (44 sets, daily range): BP systolic 92–149; BP diastolic 59–87; PULSE 67–72; RESP 18–29; TEMP 24.5–38.2; O2SAT 90–97; BMI 30.4
[2024-05-03] MEDS: Thiamine HCL 500 MG in 0.9 % Sodium Chloride 100 ML 210 MG IV ×2 (00:20→13:04)
[2024-05-03 00:24] LABS: Glucose, Whole Blood 78 mg/dL (60-115)
[2024-05-03] MEDS: dexmedeTOMIDidine HCL/NS 400 MCG/100 ML INFUS..BTL 37.2 MCG IVCONT ×10 (01:41→23:05)
[2024-05-03] MEDS: propofoL 1,000 MG/100 ML VIAL 29.76 MG IVCONT ×7 (01:59→20:57)
[2024-05-03] MEDS: Midazolam HCl 2 MG/2 ML VIAL 4 MG IVPUSH ×4 (04:48→18:15)
[2024-05-03 04:53] LABS: VBG Base Excess -0.3 mmol/L; VBG HCO3 22 mmol/L (22-26); VBG pCO2 32 mmHg; VBG pH 7.45 (7.32-7.43); VBG pO2 65 mmHg
[2024-05-03 05:05] LABS: Venous Blood Gas Refer to POC result
[2024-05-03 05:15] LABS: Eosinophils Absolute Auto 0.1 X10*3/uL (0.0-0.4); Hematocrit 38.5 % (42.0-52.0); PLT CLUMP 1; SCAN SMEAR FLAG 1
[2024-05-03 05:17] LABS: Basophils Absolute Auto 0.1 X10*3/uL (0.0-0.2); Basophils Percent Auto 0.8 % (0-2); Eosinophils Percent Auto 1.6 % (0-4); Imm Gran Abs Auto 0.14 X10*3/uL (0.00-0.03); Imm Gran Pct Auto 1.8 % (0.0-0.4); Lymphocytes Absolute Auto 1.1 X10*3/uL (1.2-4.9); Lymphocytes Percent Auto 13.6 % (20-40); MANUAL DIFF FLAG SCAN; Mean Corpuscular HGB Conc 33.8 g/dl (31.0-36.0); Mean Corpuscular Hemoglobin 32.5 pg (27.0-33.0); Mean Corpuscular Volume 96.3 fL (80.0-98.0); Mean Platelet Volume 12.3 fL (9.4-12.4); Monocytes Absolute Auto 0.6 X10*3/uL (0.1-1.2); Monocytes Percent Auto 7.2 % (2-11); Platelet Count 76 X10*3/uL (160-400); Red Cell Distribution Width 15.9 % (11.0-16.0)
[2024-05-03] MEDS: Levothyroxine Sodium 100 MCG/5 ML VIAL IVPUSH (05:18)
[2024-05-03 05:35] LABS: Albumin Level 2.8 g/dL (3.5-5.0); Anion Gap 22 (12-20); Aspartate Amino Transferase 91 U/L (5-37); Blood Urea Nitrogen 11 mg/dL (9-16); Calcium 8.4 mg/dL (8.4-10.2); Carbon Dioxide 20 mmol/L (22-29); Chloride 100 mmol/L (96-108); Creatinine Clr Calc Pharmacy 72.8; Estimated Glomerular Filt Rate 58; Glucose Random 92 mg/dL (60-115); Magnesium 1.6 mg/dL (1.6-2.6); Phosphorus 2.9 mg/dL (2.7-4.5); Potassium 3.9 mmol/L (3.3-5.1); Sodium 138 mmol/L (135-145); Total Protein 6.4 g/dL (6.5-8.0)
[2024-05-03 05:44] LABS: Glucose, Whole Blood 100 mg/dL (60-115)
[2024-05-03 05:46] LABS: Alkaline Phosphatase 550 U/L (39-117)
[2024-05-03 05:50] LABS: SLIDE REVIEW VERIFIED
--- NOTE | 2024-05-03 05:55 | PC.NURSE ---
CARE ASSUMED 7PM..REMAINS INTUBATED...INITIALLY CPAP 7.5/PSV 8/FIO2 65% VENT SUPPORT...RESTED OVERNIGHT ON RESTING VCV VENT SETTINGS.....SEDATED WITH PROPOFOL 50 MCG/KG/MIN AND PRECIDEX 1.5 MCG/KG/HR...CONTINUES PER SHIFT REPORT WITH PERIODS OF AGITATION/BANKS DESPITE CONTINUOUS SEDATION DRIPS..PRN IM PHENOBARBITOL AND IV VERSED PER APR..REMAINS W/O PHELPS...PURWIK EXTERNAL CATHETER COLLECTING DARK YELLOW URINE..NO FURTHER HEMATURIA...03:30 BLADDER SCANNED 305ml...OVER NEXT HOUR PURWIK DRAINED ADDITIONAL 350ml...
[2024-05-03 06:06] LABS: Alanine Aminotransferase 67 U/L (0-40)
[2024-05-03] MEDS: 0.9 % Sodium Chloride Flush 3 ML SYRINGE IVFLUSH ×3 (07:19→21:41)
--- NOTE | 2024-05-03 08:10 | P.PNCC_ITS ---
Subjective Subjective Date of Service: 05/03/24 Critical Care Time (minutes): 35 Comment: No new events overnight Continues to be on ventilator support On Precedex and propofol for anxiolysis and sedation Physical Exam 2 Vital Signs: Vital Signs: Last Vital Signs Temp 99.2 F 05/03/24 04:05 Pulse 69 05/03/24 07:00 Resp 20 05/03/24 07:00 BP 129/83 05/03/24 07:00 Pulse Ox 97 05/03/24 07:34 O2 Del Method Mechanical Ventil ation 05/03/24 07:00 O2 Flow Rate 15 04/30/24 21:00 FiO2 35 05/03/24 07:34 BMI result Body Mass Index 30.4 General: acute distress,and tired appearing Nutritional Appearance: well nourished and overweight Eyes: appearance normal, both eyes and all related structures; Alignment and Position: alignment normal and position normal Neck: No lymphadenopathy, no thyromegaly Resp: bilateral air entry equal, occasional added sounds present Cardio: Regular rate, regular rhythm; Heart sounds: S1 normal heart sound present and S2 normal heart sound present GI: soft, nontender, no guarding, no hepatosplenomegaly : bladder normal to inspection, bladder normal to palpation, no renal angle tenderness Skin: no rashes or lesions noted and elasticity normal Neuro: Sedated, difficulty neuro exam, moves all extremities Objective Data Labs 05/03/24 04:47 05/03/24 04:47 Labs: Laboratory Results - last 24 hr 05/02/24 05/02/24 05/03/24 11:20 17:28 00:16 WBC RBC Hgb Hct MCV MCH MCHC RDW Plt Count MPV Immature Gran % (Auto) Neut % (Auto) Lymph % (Auto) [place] % (Auto) Eos % (Auto) Baso % (Auto) Lymph # (Auto) [place] # (Auto) Eos # (Auto) Baso # (Auto) Abs Immat Gran (auto) Absolute Neuts (auto) Absolute Nucleated RBC Nucleated RBC % (auto) Smear Tech's Comments VBG pH VBG pCO2 VBG pO2 VBG HCO3 VBG O2 Saturation VBG Base Excess Sodium Potassium Chloride Carbon Dioxide Anion Gap BUN Creatinine Estim Creat Clear Calc Estimated GFR POC Glucose 144 H 90 78 Random Glucose Calcium Phosphorus Magnesium Total Bilirubin AST ALT Alkaline Phosphatase Total Protein Albumin 05/03/24 05/03/24 05/03/24 04:47 04:49 05:39 WBC 8.0 RBC 4.00 L Hgb 13.0 L Hct 38.5 L MCV 96.3 MCH 32.5 MCHC 33.8 RDW 15.9 Plt Count 76 L MPV 12.3 Immature Gran % (Auto) 1.8 H Neut % (Auto) 75.0 H Lymph % (Auto) 13.6 L [place] % (Auto) 7.2 Eos % (Auto) 1.6 Baso % (Auto) 0.8 Lymph # (Auto) 1.1 L [place] # (Auto) 0.6 Eos # (Auto) 0.1 Baso # (Auto) 0.1 Abs Immat Gran (auto) 0.14 H Absolute Neuts (auto) 6.0 Absolute Nucleated RBC 0.000 Nucleated RBC % (auto) 0.0 Smear Tech's Comments VERIFIED VBG pH 7.45 H VBG pCO2 32 VBG pO2 65 VBG HCO3 22 VBG O2 Saturation 91.0 VBG Base Excess -0.3 Sodium 138 Potassium 3.9 Chloride 100 Carbon Dioxide 20 L Anion Gap 22 H BUN 11 Creatinine 1.27 Estim Creat Clear Calc 72.8 Estimated GFR 58 POC Glucose 100 Random Glucose 92 Calcium 8.4 Phosphorus 2.9 Magnesium 1.6 Total Bilirubin 2.0 H AST 91 H ALT 67 H Alkaline Phosphatase 550 H Total Protein 6.4 L Albumin 2.8 L Microbiology Microbiology Results: Microbiology 04/29/24 10:33 Blood - Venous Blood Culture - Preliminary No growth after 48 hours. 04/29/24 10:33 Blood - Venous Blood Culture - Preliminary No growth after 48 hours. Progress Note: A&P Assessment and plan (1) ETOH abuse: Status: Acute (2) Alcohol abuse with withdrawal: Status: Acute (3) Delirium tremens: Status: Acute (4) Thrombocytopenia: Status: Acute (5) Hyponatremia: Status: Acute (6) Transaminitis: Status: Acute (7) DARRELL (acute kidney injury): Status: Acute (8) Multifocal pneumonia: Status: Acute (9) Pneumonia: Status: Acute Plan Neuro: Acute encephalopathy possibly due to alcohol withdrawal syndrome, likes to drink blackberry Keely. CT head upon admission negative for any intracranial pathology Precedex for anxiolysis, propofol for sedation, as needed IM phenobarb for episodes of agitation Close neurological status monitoring in the ICU every hour On IV thiamine and folate due to chronic alcoholism Cardiac: Cardiogenic Shock: Possibly secondary to positive pressure ventilation On Levophed support, titrate Levophed to keep map above 65 mm Hg Respiratory: Acute hypoxemic respiratory failure due to aspiration pneumonia CT chest showing multifocal pneumonia Currently on ventilator support On PRVC mode FiO2 65%, PEEP 7.5, TV 380, RR 20, did well on pressor support trials yesterday. Will try to decrease oxygen support and if we do so we will place him back on pressor support trials today Peak pressures and plateau pressures are under the curve Ventilator management bundle with head end elevation, aspiration precaution, chlorhexidine mouthwash, daily awakening trials, daily spontaneous breathing trials GI: on tube feeds transaminitis: possibly secondary to alcohol liver disease Renal: Acute kidney injury possibly volume depletion, currently resolved Baseline creatinine normal, creatinine today is 1.27; slowly creeping up We will closely monitor I's and O's Avoid nephrotoxic medications Heme: Chronic anemia, closely monitor H&H, transfuse for hemoglobin less than 7 grams/deciliter chronic thrombocytopenia secondary to cirrhotic physiology Endocrine: Blood sugars under control Sliding scale insulin as needed On Lantus 10 units daily Infectious disease: Negative anderson cultures will start on Zosyn for possible aspiration pneumonia, increase in oxygen requirement overnight Musculoskeletal: Decubitus ulcer prevention protocol Lines: Peripheral Prophylaxis: Heparin, famotidine Quality Stroke Does the patient have a stroke diagnosis?: No VTE Prior VTE?: No VTE Risk Level:: Medical - moderate - high VTE Device Contraindication: Treatment Not Indicated VTE Drug Contraindication: N/A - Med Ordered
[2024-05-03] MEDS: Insulin Glargine,Hum.rec.anlog 100 UNIT/ML 10 ML VIAL 10 UNIT SUBCUT (08:56)
[2024-05-03] MEDS: Chlorhexidine Gluc Oral Rinse 15 ML MOUTHWASH BUCCAL ×3 (08:56→21:41)
[2024-05-03] MEDS: Famotidine/PF 20 MG/2 ML VIAL IVPUSH (08:56)
[2024-05-03] MEDS: Piperacillin Sodium/Tazobactam 4.5 GM in 0.9 % Sodium Chloride 100 ML IV ×3 (09:43→21:53)
--- NOTE | 2024-05-03 10:03 | MHC.CLN ---
F/U PT REMAINS INTUBATED AND SEDATED DISCUSSED AT ROUNDS WITH PT IS CURRENTLY DAY 2 NPO SECONDARY TO UNABLE TO PLACE OG OR NGT -PLAN FOR NURSE TO PLACE TODAY RECOMMEND PROMOTE AT MAX GOAL RATE 60ML/HR TO PROVIDE 1440KCALS (2226KCALS WITH SEDATION; 27KCALS/KG), 90G PROTEIN (1.09G/KG), 1208ML FREE WATER FROM FORMULA FOLLOWING FOR DIET ADVANCEMENT
[2024-05-03 11:17] LABS: Glucose, Whole Blood 128 mg/dL (60-115)
[2024-05-03 11:18] LABS: Glucose, Whole Blood 128 mg/dL (60-115)
--- NOTE | 2024-05-03 14:11 | MHC.CM.PN ---
Pt continues care in ICU: remains on ventilary support: Plan for the day is to wean down FiO2 requirements in anticipation of extubation. Pt is from home - will need CARE team when medically stable for ? ETOH tx options. CM to follow
[2024-05-03 17:21] LABS: Glucose, Whole Blood 114 mg/dL (60-115)
--- NOTE | 2024-05-03 17:38 | PC.NURSE ---
Assumed care at 0700 - remains intubated and sedated - failed sedation weaning - increased agitation, unable to follow commands, reaching for ett. OGT placed - CXR obtained - see report. Tube feeds ordered. Family updated at bedside and updated by this RN. Care ongoing.
[2024-05-03] MEDS: PHENobarbitaL sodium 130 MG/ML VIAL IM (19:33)
[2024-05-03] MEDS: PHENobarbitaL 30 MG TABLET PO (21:41)
[2024-05-04] VITALS (53 sets, daily range): BP systolic 76–172; BP diastolic 34–98; PULSE 70–91; RESP 10–29; TEMP 35–37.1; O2SAT 91–96; BMI 29.4
[2024-05-04] MEDS: propofoL 1,000 MG/100 ML VIAL 29.76 MG IVCONT ×8 (00:08→22:41)
[2024-05-04] MEDS: Thiamine HCL 500 MG in 0.9 % Sodium Chloride 100 ML 210 MG IV ×2 (00:14→12:39)
[2024-05-04] MEDS: Midazolam HCl 2 MG/2 ML VIAL 4 MG IVPUSH (01:29)
[2024-05-04] MEDS: dexmedeTOMIDidine HCL/NS 400 MCG/100 ML INFUS..BTL 37.2 MCG IVCONT ×8 (01:49→19:16)
[2024-05-04] MEDS: PHENobarbitaL sodium 130 MG/ML VIAL IM ×2 (02:44→11:44)
[2024-05-04] MEDS: fentaNYL citrate/PF 100 MCG/2 ML VIAL 50 MCG IVPUSH (03:00)
[2024-05-04] MEDS: Piperacillin Sodium/Tazobactam 4.5 GM in 0.9 % Sodium Chloride 100 ML IV ×4 (03:16→21:49)
--- NOTE | 2024-05-04 03:26 | PC.NURSE ---
Addendum entered by Martín Fuentes RN 05/04/24 04:03: awake/agitated despite prn meds and continuous sedation drips...fentanyl 50 mcg iv x1 per provider with restful effect..currently sao2 93% with fio2 75% and peep 7.5cm Original Note: CARE ASSUMED 7PM..REMAINS INTUBATED..VCV VENT SUPPORT...PROPOFOL 50 MCG/KG/MIN AND PRECIDEX 1.5 MCG/KG/HR..DESPITE SEDATIONS DRIPS PATIENT WITH PERIODS OF AGITATION/VENT DYSYNCHRONY PER SHIFT REPORT...PRN VERSED IV AND PHENOBARBITOL IM PER APR...PURWIK EXTERNAL CATHETER WITH DARK KARL-YELLOW URINE...INCREASED O2 NEED 2AM-3AM...FIO2 TITRATED FROM 55% TO 75% TO MAINTAIN SAO2 > OR = TO 90%..CURRENTLY SAO2= 925..INCREASED CREAM SECRETIONS VIA ETT...ZOSYN PER APR..AFEBRILE
[2024-05-04 04:49] LABS: Glucose, Whole Blood 134 mg/dL (60-115)
[2024-05-04 05:02] LABS: VBG Base Excess -2.3 mmol/L; VBG HCO3 20 mmol/L (22-26); VBG pCO2 30 mmHg; VBG pH 7.43 (7.32-7.43); VBG pO2 84 mmHg
[2024-05-04 05:08] LABS: Venous Blood Gas Refer to POC result
[2024-05-04 05:14] LABS: Eosinophils Absolute Auto 0.1 X10*3/uL (0.0-0.4); Eosinophils Percent Auto 1.7 % (0-4); PLT CLUMP 1; Red Blood Count 3.92 X10*6/uL (4.60-5.80); SCAN SMEAR FLAG 1
[2024-05-04 05:16] LABS: Basophils Percent Auto 0.5 % (0-2); Hematocrit 38.1 % (42.0-52.0); Hemoglobin 12.6 g/dl (14.0-18.0); Imm Gran Abs Auto 0.16 X10*3/uL (0.00-0.03); Imm Gran Pct Auto 1.9 % (0.0-0.4); Lymphocytes Absolute Auto 0.7 X10*3/uL (1.2-4.9); Lymphocytes Percent Auto 8.8 % (20-40); MANUAL DIFF FLAG SCAN; Mean Corpuscular HGB Conc 33.1 g/dl (31.0-36.0); Mean Corpuscular Hemoglobin 32.1 pg (27.0-33.0); Mean Corpuscular Volume 97.2 fL (80.0-98.0); Mean Platelet Volume 11.2 fL (9.4-12.4); Monocytes Absolute Auto 0.9 X10*3/uL (0.1-1.2); Monocytes Percent Auto 10.3 % (2-11); Neutrophils Absolute Auto 6.5 x10*3/uL (2.0-8.3); Neutrophils Percent Auto 76.8 % (45-73); Red Cell Distribution Width 15.9 % (11.0-16.0)
[2024-05-04 05:21] LABS: Platelet Count 92 X10*3/uL (160-400); White Blood Count 8.4 X10*3/uL (4.8-10.8)
[2024-05-04 05:34] LABS: SLIDE REVIEW VERIFIED
[2024-05-04 05:40] LABS: Alanine Aminotransferase 52 U/L (0-40); Albumin Level 2.8 g/dL (3.5-5.0); Alkaline Phosphatase 547 U/L (39-117); Anion Gap 18 (12-20); Aspartate Amino Transferase 78 U/L (5-37); Bilirubin Total 1.6 mg/dL (0.0-1.0); Blood Urea Nitrogen 10 mg/dL (9-16); Calcium 8.2 mg/dL (8.4-10.2); Carbon Dioxide 21 mmol/L (22-29); Chloride 104 mmol/L (96-108); Creatinine Clr Calc Pharmacy 68.5; Estimated Glomerular Filt Rate 55; Glucose Random 141 mg/dL (60-115); Magnesium 1.2 mg/dL (1.6-2.6); Potassium 3.4 mmol/L (3.3-5.1); Sodium 140 mmol/L (135-145); Total Protein 6.1 g/dL (6.5-8.0)
[2024-05-04] MEDS: Levothyroxine Sodium 100 MCG/5 ML VIAL IVPUSH (05:46)
[2024-05-04] MEDS: Magnesium Sulfate/H2O 2 GM/50 ML PIGGYBACK IV ×3 (06:03→16:37)
--- NOTE | 2024-05-04 08:16 | PM.CCPN ---
Subjective Subjective Date of Service: 05/04/24 Critical Care Time (minutes): 35 Comment: Episodes of agitation requiring p.r.n. medication, continues to be on ventilator support Physical Exam Vital Signs: Vital Signs: Last Vital Signs Temp 98.6 F 05/04/24 04:00 Pulse 71 05/04/24 07:00 Resp 20 05/04/24 07:00 BP 129/86 05/04/24 07:00 Pulse Ox 94 05/04/24 07:00 O2 Del Method Mechanical Ventil ation 05/04/24 07:00 O2 Flow Rate 15 04/30/24 21:00 FiO2 65 05/04/24 07:45 BMI result Body Mass Index 29.4 General: In somewhat acute distress, tired appearing Nutritional Appearance: well nourished and overweight Eyes: appearance normal, both eyes and all related structures; Alignment and Position: alignment normal and position normal Neck: No lymphadenopathy, no thyromegaly Resp: bilateral air entry equal, occasional added sounds present Cardio: Regular rate, regular rhythm; Heart sounds: S1 normal heart sound present and S2 normal heart sound present GI: soft, nontender, no guarding, no hepatosplenomegaly : bladder normal to inspection, bladder normal to palpation, no renal angle tenderness Skin: no rashes or lesions noted and elasticity normal Neuro: Sedated, no focal deficits Objective Data Labs 05/04/24 04:49 05/04/24 04:49 Labs: Laboratory Results - last 24 hr 05/03/24 05/03/24 05/03/24 11:11 11:11 17:02 WBC RBC Hgb Hct MCV MCH MCHC RDW Plt Count MPV Immature Gran % (Auto) Neut % (Auto) Lymph % (Auto) [place] % (Auto) Eos % (Auto) Baso % (Auto) Lymph # (Auto) [place] # (Auto) Eos # (Auto) Baso # (Auto) Abs Immat Gran (auto) Absolute Neuts (auto) Absolute Nucleated RBC Nucleated RBC % (auto) Smear Tech's Comments VBG pH VBG pCO2 VBG pO2 VBG HCO3 VBG O2 Saturation VBG Base Excess Sodium Potassium Chloride Carbon Dioxide Anion Gap BUN Creatinine Estim Creat Clear Calc Estimated GFR POC Glucose 128 H 128 H 114 Random Glucose Calcium Phosphorus Magnesium Total Bilirubin AST ALT Alkaline Phosphatase Total Protein Albumin 05/03/24 05/04/24 05/04/24 23:53 04:49 04:53 WBC 8.4 RBC 3.92 L Hgb 12.6 L Hct 38.1 L MCV 97.2 MCH 32.1 MCHC 33.1 RDW 15.9 Plt Count 92 L MPV 11.2 Immature Gran % (Auto) 1.9 H Neut % (Auto) 76.8 H Lymph % (Auto) 8.8 L [place] % (Auto) 10.3 Eos % (Auto) 1.7 Baso % (Auto) 0.5 Lymph # (Auto) 0.7 L [place] # (Auto) 0.9 Eos # (Auto) 0.1 Baso # (Auto) 0.0 Abs Immat Gran (auto) 0.16 H Absolute Neuts (auto) 6.5 Absolute Nucleated RBC 0.000 Nucleated RBC % (auto) 0.0 Smear Tech's Comments VERIFIED VBG pH 7.43 VBG pCO2 30 VBG pO2 84 VBG HCO3 20 L VBG O2 Saturation 97.0 VBG Base Excess -2.3 Sodium 140 Potassium 3.4 Chloride 104 Carbon Dioxide 21 L Anion Gap 18 BUN 10 Creatinine 1.33 Estim Creat Clear Calc 68.5 Estimated GFR 55 POC Glucose 134 H Random Glucose 141 H Calcium 8.2 L Phosphorus 3.0 Magnesium 1.2 L* Total Bilirubin 1.6 H AST 78 H ALT 52 H Alkaline Phosphatase 547 H Total Protein 6.1 L Albumin 2.8 L Microbiology Microbiology Results: Microbiology 04/29/24 10:33 Blood - Venous Blood Culture - Preliminary No growth after 48 hours. 04/29/24 10:33 Blood - Venous Blood Culture - Preliminary No growth after 48 hours. Progress Note: A&P Assessment and plan (1) ETOH abuse: Status: Acute (2) Alcohol abuse with withdrawal: Status: Acute (3) Delirium tremens: Status: Acute (4) Hypoglycemia: Status: Acute (5) Transaminitis: Status: Acute (6) DARRELL (acute kidney injury): Status: Acute (7) Metabolic acidosis: Status: Acute (8) Multifocal pneumonia: Status: Acute (9) Acute respiratory failure with hypoxia: Status: Acute Plan Neuro: Acute encephalopathy possibly due to alcohol withdrawal syndrome, likes to drink blackberry Keely. CT head upon admission negative for any intracranial pathology Precedex for anxiolysis, propofol for sedation, as needed IM phenobarb for episodes of agitation. Close neurological status monitoring in the ICU every hour On IV thiamine and folate due to chronic alcoholism Cardiac: Cardiogenic Shock: Possibly secondary to positive pressure ventilation On Levophed support, titrate Levophed to keep map above 65 mm Hg Respiratory: Acute hypoxemic respiratory failure due to aspiration pneumonia CT chest showing multifocal pneumonia Currently on ventilator support On PRVC mode FiO2 down to 65 %, PEEP 7.5, TV 380, RR 20, lasted several hours on pressor support trials yesterday. We will switch him back to pressor support today as his oxygen requirement are higher Peak pressures and plateau pressures are under the curve Ventilator management bundle with head end elevation, aspiration precaution, chlorhexidine mouthwash, daily awakening trials, daily spontaneous breathing trials GI: on tube feeds transaminitis: possibly secondary to alcohol liver disease Renal: Acute kidney injury possibly volume depletion, currently resolved Baseline creatinine normal, creatinine today is 1.33; slowly creeping up We will closely monitor I's and O's Avoid nephrotoxic medications hypomagnesemia: will replete twice daily Heme: Chronic anemia, closely monitor H&H, transfuse for hemoglobin less than 7 grams/deciliter chronic thrombocytopenia secondary to cirrhotic physiology, improving upto 97k today Endocrine: Blood sugars under control Sliding scale insulin as needed On Lantus 10 units daily Hypothyroidism: on levothyroxine Infectious disease: Negative anderson cultures continue Zosyn for possible aspiration pneumonia Musculoskeletal: Decubitus ulcer prevention protocol Lines: Peripheral Prophylaxis: Heparin, famotidine Quality Stroke Does the patient have a stroke diagnosis?: No VTE Prior VTE?: No VTE Risk Level:: Medical - moderate - high VTE Device Contraindication: Treatment Not Indicated VTE Drug Contraindication: N/A - Med Ordered
[2024-05-04] MEDS: PHENobarbitaL 30 MG TABLET PO ×2 (08:47→20:32)
[2024-05-04] MEDS: Chlorhexidine Gluc Oral Rinse 15 ML MOUTHWASH BUCCAL ×3 (08:47→20:31)
[2024-05-04] MEDS: 0.9 % Sodium Chloride Flush 3 ML SYRINGE IVFLUSH ×2 (08:52→16:34)
[2024-05-04] MEDS: Insulin Glargine,Hum.rec.anlog 100 UNIT/ML 10 ML VIAL 10 UNIT SUBCUT (08:52)
--- NOTE | 2024-05-04 09:58 | MHC.CLN ---
F/U PT REMAINS INTUBATED AND SEDATED DISCUSSED AT ROUNDS WITH MD JARAMILLOT IN PLACE RECEIVING PROMOTE AT MAX GOAL RATE 60ML/HR TO PROVIDE 1440KCALS (2226KCALS WITH SEDATION; 27KCALS/KG), 90G PROTEIN (1.09G/KG), 1208ML FREE WATER FROM FORMULA MONITOR TOLERANCE AND LYTES
[2024-05-04] MEDS: Norepinephrine Bitartrate/D5W 8 MG/250 ML PLAST..BAG 9.3 MG IVCONT ×2 (11:02→20:21)
[2024-05-04 11:47] LABS: Glucose, Whole Blood 233 mg/dL (60-115)
[2024-05-04] MEDS: Insulin Lispro 100 UNIT/ML 3 ML VIAL SUBCUT (12:38)
--- NOTE | 2024-05-04 14:29 | MHC.CM.PN ---
Pt continues on ventilatory support: no plans to extubate d/t FiO2 demands. Plans are to continue pt on PSV and give Phenobarb via OGT. Pt will need to see the CARE team once medically stable for ? INPT ETOH tx. CM to follow for finalization of d/c planning.
[2024-05-04] MEDS: Furosemide 40 MG/4 ML VIAL IVPUSH (17:55)
--- NOTE | 2024-05-04 19:09 | PC.NURSE ---
assumed care 0700 on 05/04/24... patient stable and resting on vent... fluctuating oxygen requirements, and need for increased peep... after morning rounds propofol titrated down from 50 to 30 per MD... patient became very agitated, attempting to remove airway, reaching for ETT, swinging legs out of bed, attempting to kick staff, incontinent of stool, and remains unable to follow commands... sedation titrated per APR, see paper non-behavioral restraint charting, see shift assessment. patient tolerates care poorly. during bed bath patient had a brief hypotensive episode. levo titrated per APR. shortly after patient began to become hypertensive and levophed titrated off per APR. patient vitals remain stable up until handoff. patient comfortably sedated and intubated with stable vitals at change of shift.
[2024-05-04 20:33] LABS: Alanine Aminotransferase 51 U/L (0-40); Albumin Level 2.8 g/dL (3.5-5.0); Alkaline Phosphatase 477 U/L (39-117); Anion Gap 12 (12-20); Aspartate Amino Transferase 62 U/L (5-37); Bilirubin Total 1.3 mg/dL (0.0-1.0); Blood Urea Nitrogen 9 mg/dL (9-16); Calcium 8.3 mg/dL (8.4-10.2); Carbon Dioxide 26 mmol/L (22-29); Chloride 107 mmol/L (96-108); Creatinine Clr Calc Pharmacy 79.9; Estimated Glomerular Filt Rate > 60; Glucose Random 149 mg/dL (60-115); Phosphorus 2.6 mg/dL (2.7-4.5); Potassium 3.3 mmol/L (3.3-5.1); Sodium 142 mmol/L (135-145)
[2024-05-04] MEDS: dexmedeTOMIDidine HCL/NS 400 MCG/100 ML INFUS..BTL 32.24 MCG IVCONT (21:50)
[2024-05-04] MEDS: Sodium,Potassium Phosphates POWD.PACK 2 PACKET PO (22:38)
[2024-05-04] MEDS: Potassium Chloride Packet 20 MEQ PACKET 40 MEQ PO (22:38)
[2024-05-05] VITALS (42 sets, daily range): BP systolic 69–167; BP diastolic 40–115; PULSE 70–125; RESP 17–25; TEMP 35–37.1; O2SAT 91–99; BMI 29.0
[2024-05-05] MEDS: 0.9 % Sodium Chloride Flush 3 ML SYRINGE IVFLUSH ×3 (00:30→15:42)
[2024-05-05] MEDS: Insulin Lispro 100 UNIT/ML 3 ML VIAL SUBCUT ×2 (00:30→06:24)
[2024-05-05] MEDS: Thiamine HCL 500 MG in 0.9 % Sodium Chloride 100 ML 210 MG IV ×2 (00:32→11:52)
[2024-05-05] MEDS: dexmedeTOMIDidine HCL/NS 400 MCG/100 ML INFUS..BTL 32.24 MCG IVCONT ×4 (01:06→09:19)
[2024-05-05] MEDS: propofoL 1,000 MG/100 ML VIAL 29.76 MG IVCONT ×3 (01:51→08:27)
[2024-05-05] MEDS: Piperacillin Sodium/Tazobactam 4.5 GM in 0.9 % Sodium Chloride 100 ML IV ×4 (03:54→22:20)
[2024-05-05 04:20] LABS: VBG Base Excess 3.1 mmol/L; VBG HCO3 25 mmol/L (22-26); VBG pCO2 32 mmHg; VBG pO2 49 mmHg
[2024-05-05 04:21] LABS: Venous Blood Gas Refer to POC result
[2024-05-05 04:22] LABS: Glucose, Whole Blood 122 mg/dL (60-115)
[2024-05-05 04:22] LABS: Glucose, Whole Blood 217 mg/dL (60-115)
[2024-05-05 05:05] LABS: MANUAL DIFF FLAG NO
[2024-05-05] MEDS: fentaNYL citrate/PF 100 MCG/2 ML VIAL 50 MCG IVPUSH (05:07)
[2024-05-05 05:13] LABS: Basophils Absolute Auto 0.1 X10*3/uL (0.0-0.2); Basophils Percent Auto 0.6 % (0-2); Eosinophils Absolute Auto 0.2 X10*3/uL (0.0-0.4); Eosinophils Percent Auto 2.2 % (0-4); Hematocrit 36.4 % (42.0-52.0); Hemoglobin 12.1 g/dl (14.0-18.0); Imm Gran Pct Auto 3.6 % (0.0-0.4); Lymphocytes Percent Auto 12.1 % (20-40); Mean Corpuscular HGB Conc 33.2 g/dl (31.0-36.0); Mean Corpuscular Hemoglobin 32.2 pg (27.0-33.0); Mean Corpuscular Volume 96.8 fL (80.0-98.0); Mean Platelet Volume 11.1 fL (9.4-12.4); Monocytes Absolute Auto 1.1 X10*3/uL (0.1-1.2); Monocytes Percent Auto 13.6 % (2-11); Neutrophils Absolute Auto 5.7 x10*3/uL (2.0-8.3); Neutrophils Percent Auto 67.9 % (45-73); Platelet Count 133 X10*3/uL (160-400); Red Blood Count 3.76 X10*6/uL (4.60-5.80); White Blood Count 8.3 X10*3/uL (4.8-10.8)
[2024-05-05] MEDS: Levothyroxine Sodium 100 MCG/5 ML VIAL IVPUSH (05:25)
[2024-05-05 05:26] LABS: Alanine Aminotransferase 52 U/L (0-40); Albumin Level 2.8 g/dL (3.5-5.0); Anion Gap 14 (12-20); Aspartate Amino Transferase 89 U/L (5-37); Bilirubin Total 1.2 mg/dL (0.0-1.0); Blood Urea Nitrogen 10 mg/dL (9-16); Calcium 8.5 mg/dL (8.4-10.2); Carbon Dioxide 25 mmol/L (22-29); Chloride 106 mmol/L (96-108); Estimated Glomerular Filt Rate 60; Glucose Random 192 mg/dL (60-115); Magnesium 1.7 mg/dL (1.6-2.6); Phosphorus 2.2 mg/dL (2.7-4.5); Potassium 3.4 mmol/L (3.3-5.1); Sodium 142 mmol/L (135-145); Total Protein 6.2 g/dL (6.5-8.0)
[2024-05-05 05:29] LABS: Alkaline Phosphatase 499 U/L (39-117)
--- NOTE | 2024-05-05 06:11 | PC.NURSE ---
Critical Care Nursing Note? assumed care at 190 Neuro:patient sedated on propofol and precedex,? Rass -2 to -3, with periods of restlessness. Cardiac: levophed drip restarted at 2019, see titrations Resp: patient intubated/ventilated on PSV trial and switched to ACVC settings at 2229 GI/:external catheter; OGT with tube feeding Endocrine: sliding scale? Integumentary/Musculoskeletal:? abrasions, diabetic ulcer? ID: ? Zosyn continued Events: patient becomes agitated with care
[2024-05-05] MEDS: Chlorhexidine Gluc Oral Rinse 15 ML MOUTHWASH BUCCAL (07:34)
[2024-05-05] MEDS: Sodium,Potassium Phosphates POWD.PACK 2 PACKET PO (07:35)
[2024-05-05] MEDS: Insulin Glargine,Hum.rec.anlog 100 UNIT/ML 10 ML VIAL 10 UNIT SUBCUT (07:35)
[2024-05-05] MEDS: Famotidine/PF 20 MG/2 ML VIAL IVPUSH (07:35)
--- NOTE | 2024-05-05 08:12 | PM.CCPN ---
Subjective Subjective Date of Service: 05/05/24 Interval History: On ventilator support, propofol and Precedex for sedation and anxiolysis. Critical Care Time (minutes): 35 Physical Exam Vital Signs: Vital Signs: Last Vital Signs Temp 97.9 F 05/05/24 04:00 Pulse 70 05/05/24 07:00 Resp 18 05/05/24 07:00 BP 144/81 H 05/05/24 07:00 Pulse Ox 96 05/05/24 07:45 O2 Del Method Mechanical Ventil ation 05/05/24 07:00 O2 Flow Rate 15 04/30/24 21:00 FiO2 50 05/05/24 07:54 BMI result Body Mass Index 29.0 General: Middle-aged male ill appearing lying in the bed unresponsive Nutritional Appearance: well nourished and overweight Eyes: appearance normal, both eyes and all related structures; Alignment and Position: alignment normal and position normal Neck: No lymphadenopathy, no thyromegaly Resp: bilateral air entry equal, occasional added sounds present Cardio: Regular rate, regular rhythm; Heart sounds: S1 normal heart sound present and S2 normal heart sound present GI: soft, nontender, no guarding, no hepatosplenomegaly : bladder normal to inspection, bladder normal to palpation, no renal angle tenderness Skin: no rashes or lesions noted and elasticity normal Neuro: On sedation, moves all extremities Objective Data Labs 05/05/24 04:06 05/05/24 04:06 Labs: Laboratory Results - last 24 hr 05/04/24 05/04/24 05/04/24 11:36 18:03 20:02 WBC RBC Hgb Hct MCV MCH MCHC RDW Plt Count MPV Immature Gran % (Auto) Neut % (Auto) Lymph % (Auto) [place] % (Auto) Eos % (Auto) Baso % (Auto) Lymph # (Auto) [place] # (Auto) Eos # (Auto) Baso # (Auto) Abs Immat Gran (auto) Absolute Neuts (auto) Absolute Nucleated RBC Nucleated RBC % (auto) VBG pH VBG pCO2 VBG pO2 VBG HCO3 VBG O2 Saturation VBG Base Excess Sodium 142 Potassium 3.3 Chloride 107 Carbon Dioxide 26 Anion Gap 12 BUN 9 Creatinine 1.14 Estim Creat Clear Calc 79.9 Estimated GFR > 60 POC Glucose 233 H 122 H Random Glucose 149 H Calcium 8.3 L Phosphorus 2.6 L Magnesium 2.0 Total Bilirubin 1.3 H AST 62 H ALT 51 H Alkaline Phosphatase 477 H Total Protein 6.0 L Albumin 2.8 L 05/04/24 05/05/24 05/05/24 23:35 04:06 04:14 WBC 8.3 RBC 3.76 L Hgb 12.1 L Hct 36.4 L MCV 96.8 MCH 32.2 MCHC 33.2 RDW 16.0 Plt Count 133 L D MPV 11.1 Immature Gran % (Auto) 3.6 H Neut % (Auto) 67.9 Lymph % (Auto) 12.1 L [place] % (Auto) 13.6 H Eos % (Auto) 2.2 Baso % (Auto) 0.6 Lymph # (Auto) 1.0 L [place] # (Auto) 1.1 Eos # (Auto) 0.2 Baso # (Auto) 0.1 Abs Immat Gran (auto) 0.30 H Absolute Neuts (auto) 5.7 Absolute Nucleated RBC 0.000 Nucleated RBC % (auto) 0.0 VBG pH 7.50 H VBG pCO2 32 VBG pO2 49 VBG HCO3 25 VBG O2 Saturation 81.0 VBG Base Excess 3.1 Sodium 142 Potassium 3.4 Chloride 106 Carbon Dioxide 25 Anion Gap 14 BUN 10 Creatinine 1.24 Estim Creat Clear Calc 73.0 Estimated GFR 60 POC Glucose 217 H Random Glucose 192 H Calcium 8.5 Phosphorus 2.2 L Magnesium 1.7 Total Bilirubin 1.2 H AST 89 H ALT 52 H Alkaline Phosphatase 499 H Total Protein 6.2 L Albumin 2.8 L Microbiology Microbiology Results: Microbiology 04/29/24 10:33 Blood - Venous Blood Culture - Final No growth after 5 days. 04/29/24 10:33 Blood - Venous Blood Culture - Final No growth after 5 days. Progress Note: A&P Assessment and plan (1) ETOH abuse: Status: Acute (2) Alcohol abuse with withdrawal: Status: Acute (3) Delirium tremens: Status: Acute (4) Thrombocytopenia: Status: Acute (5) Hyponatremia: Status: Acute (6) DARRELL (acute kidney injury): Status: Acute (7) Multifocal pneumonia: Status: Acute (8) Pneumonia: Status: Acute Plan Neuro: Acute encephalopathy possibly due to alcohol withdrawal syndrome, likes to drink blackberry Keely. CT head upon admission negative for any intracranial pathology Precedex for anxiolysis, propofol for sedation, as needed IM phenobarb for episodes of agitation. Close neurological status monitoring in the ICU every hour On IV thiamine and folate due to chronic alcoholism Cardiac: Cardiogenic Shock: Possibly secondary to positive pressure ventilation On Levophed support, titrate Levophed to keep map above 65 mm Hg Respiratory: Acute hypoxemic respiratory failure due to aspiration pneumonia CT chest showing multifocal pneumonia Currently on ventilator support On PRVC mode FiO2 down to 40 %, PEEP 5, TV 380, RR 20, will try him on pressure support and weaning trials. Did well on pressure support trials for 12 hrs yesterday Peak pressures and plateau pressures are under the curve Ventilator management bundle with head end elevation, aspiration precaution, chlorhexidine mouthwash, daily awakening trials, daily spontaneous breathing trials GI: on tube feeds transaminitis: possibly secondary to alcohol liver disease Renal: Acute kidney injury possibly volume depletion, currently resolved Baseline creatinine normal, creatinine today is 1.24 will do IV Lasix 40 mg b.i.d. as he is net positive for the past several days We will closely monitor I's and O's Avoid nephrotoxic medications hypomagnesemia: will replete twice daily hypophosphatemia: due to poor reserves Heme: Chronic anemia, closely monitor H&H, transfuse for hemoglobin less than 7 grams/deciliter chronic thrombocytopenia secondary to cirrhotic physiology, improving upto 110k today Endocrine: Blood sugars under control Sliding scale insulin as needed On Lantus 10 units daily Hypothyroidism: on levothyroxine Infectious disease: Negative anderson cultures continue Zosyn for possible aspiration pneumonia Musculoskeletal: Decubitus ulcer prevention protocol Lines: Peripheral Prophylaxis: Heparin, famotidine Quality Stroke Does the patient have a stroke diagnosis?: No VTE Prior VTE?: No VTE Risk Level:: Medical - moderate - high VTE Device Contraindication: Treatment Not Indicated VTE Drug Contraindication: N/A - Med Ordered
[2024-05-05] MEDS: Albuterol Sulfate (0.083%) 2.5 MG/3 ML VIAL.NEB INHALE ×2 (11:18→19:24)
[2024-05-05] MEDS: Acetylcysteine 10 % 400 MG/4 ML VIAL INHALE ×3 (11:18→19:24)
--- NOTE | 2024-05-05 11:30 | MHC.CM.PN ---
Pt continues on vent support: failed trial of sedation weaning with increased agitation; tolerated PSV x 12hrs. Plan for today is to wean off sedation and extubate. CM to follow
[2024-05-05] MEDS: dexmedeTOMIDidine HCL/NS 400 MCG/100 ML INFUS..BTL 37.2 MCG IVCONT ×5 (11:52→22:20)
[2024-05-05 12:51] LABS: Glucose, Whole Blood 147 mg/dL (60-115)
[2024-05-05] MEDS: PHENobarbitaL sodium 130 MG/ML VIAL IM (15:42)
[2024-05-05 17:47] LABS: Glucose, Whole Blood 145 mg/dL (60-115)
[2024-05-06] VITALS (29 sets, daily range): BP systolic 118–168; BP diastolic 84–108; PULSE 66–108; RESP 13–24; TEMP 36.3–37.3; O2SAT 90–100
[2024-05-06] MEDS: dexmedeTOMIDidine HCL/NS 400 MCG/100 ML INFUS..BTL 37.2 MCG IVCONT ×7 (00:58→21:04)
[2024-05-06] MEDS: 0.9 % Sodium Chloride Flush 3 ML SYRINGE IVFLUSH ×4 (00:59→21:08)
[2024-05-06] MEDS: Thiamine HCL 500 MG in 0.9 % Sodium Chloride 100 ML 210 MG IV ×2 (01:00→13:02)
[2024-05-06 01:14] LABS: Glucose, Whole Blood 137 mg/dL (60-115)
[2024-05-06] MEDS: PHENobarbitaL sodium 130 MG/ML VIAL IM ×3 (02:13→13:01)
[2024-05-06] MEDS: Piperacillin Sodium/Tazobactam 4.5 GM in 0.9 % Sodium Chloride 100 ML IV ×4 (03:41→21:07)
[2024-05-06 04:55] LABS: Hematocrit 36.8 % (42.0-52.0); Hemoglobin 12.2 g/dl (14.0-18.0); Mean Corpuscular HGB Conc 33.2 g/dl (31.0-36.0); Mean Corpuscular Volume 96.6 fL (80.0-98.0); Mean Platelet Volume 11.2 fL (9.4-12.4); Platelet Count 169 X10*3/uL (160-400); Red Blood Count 3.81 X10*6/uL (4.60-5.80); Red Cell Distribution Width 15.9 % (11.0-16.0); White Blood Count 7.1 X10*3/uL (4.8-10.8)
[2024-05-06 04:56] LABS: VBG Base Excess 5.8 mmol/L; VBG HCO3 30 mmol/L (22-26); VBG pCO2 43 mmHg; VBG pH 7.45 (7.32-7.43); VBG pO2 50 mmHg
[2024-05-06 05:28] LABS: Alanine Aminotransferase 41 U/L (0-40); Albumin Level 3.1 g/dL (3.5-5.0); Alkaline Phosphatase 403 U/L (39-117); Anion Gap 15 (12-20); Aspartate Amino Transferase 46 U/L (5-37); Bilirubin Total 1.3 mg/dL (0.0-1.0); Blood Urea Nitrogen 7 mg/dL (9-16); Calcium 8.7 mg/dL (8.4-10.2); Carbon Dioxide 26 mmol/L (22-29); Chloride 109 mmol/L (96-108); Creatinine Clr Calc Pharmacy 97.4; Estimated Glomerular Filt Rate > 60; Glucose Random 121 mg/dL (60-115); Magnesium 1.2 mg/dL (1.6-2.6); Phosphorus 2.5 mg/dL (2.7-4.5); Potassium 3.6 mmol/L (3.3-5.1); Sodium 146 mmol/L (135-145); Total Protein 6.6 g/dL (6.5-8.0)
[2024-05-06 05:31] LABS: Venous Blood Gas Refer to POC result
[2024-05-06 05:36] LABS: Band Neutrophils Percent 1 % (3-5); Basophils Abs Manual 0.1 X10*3/uL (0.0-0.2); Basophils Percent Manual 2 % (0-2); Eosinophils Absolute Manual 0.1 X10*3/uL (0.0-0.4); Eosinophils Percent Manual 1 % (0-4); Lymphocytes Absolute Manual 1.3 X10*3/uL (1.2-4.9); Lymphocytes Percent Manual 18 % (20-40); Monocytes Absolute Manual 0.7 X10*3/uL (0.1-1.2); Monocytes Percent Manual 10 % (2-11); Myelocytes Absolute 0.1 X10*/uL; Myelocytes Percent 1 %; Neutrophils Absolute Manual 4.8 X10*3/uL (2.0-8.3); Neutrophils Percent Manual 67 % (45-73)
[2024-05-06 05:39] LABS: Large Platelet PRESENT; Platelet Estimate NORMAL (NORMAL); Platelet Morphology Comment NOTED; RBC Morphology NOTED; Stomatocytes 1+ (5-14) /OIF; Target Cells 1+ (5-14) /OIF
[2024-05-06] MEDS: Levothyroxine Sodium 100 MCG/5 ML VIAL IVPUSH (05:48)
[2024-05-06] MEDS: Magnesium Sulfate/H2O 2 GM/50 ML PIGGYBACK IV ×3 (05:54→20:21)
[2024-05-06] MEDS: Potassium Phosphate/NS 15 MMOL/250 ML PLAST..BAG 62.5 MMOL IV (07:19)
[2024-05-06] MEDS: Acetylcysteine 10 % 400 MG/4 ML VIAL INHALE ×4 (08:08→18:48)
--- NOTE | 2024-05-06 08:22 | PM.CCPN ---
Subjective Subjective Date of Service: 05/06/24 Interval History: Mental status slightly improving, telling his name this morning On Precedex drip Critical Care Time (minutes): 35 Physical Exam Vital Signs: Vital Signs: Last Vital Signs Temp 98.8 F 05/06/24 04:00 Pulse 82 05/06/24 08:08 Resp 16 05/06/24 08:08 BP 161/107 H 05/06/24 07:00 Pulse Ox 100 05/06/24 07:00 O2 Del Method Nasal Cannula 05/06/24 07:00 O2 Flow Rate 4 05/06/24 06:00 FiO2 40 05/05/24 09:38 BMI result Body Mass Index 29.0 General: Not in acute distress, ill appearing and tired appearing Nutritional Appearance: well nourished and overweight Eyes: appearance normal, both eyes and all related structures; Alignment and Position: alignment normal and position normal Neck: No lymphadenopathy, no thyromegaly Resp: bilateral air entry equal, occasional added sounds present Cardio: Regular rate, regular rhythm; Heart sounds: S1 normal heart sound present and S2 normal heart sound present GI: soft, nontender, no guarding, no hepatosplenomegaly : bladder normal to inspection, bladder normal to palpation, no renal angle tenderness Skin: no rashes or lesions noted and elasticity normal Neuro: Oriented to person but not place or time, confusion present, bones all extremities Objective Data Labs 05/06/24 04:40 05/06/24 04:40 Labs: Laboratory Results - last 24 hr 05/05/24 05/05/24 05/05/24 11:19 17:17 23:24 WBC RBC Hgb Hct MCV MCH MCHC RDW Plt Count MPV Immature Gran % (Auto) Neut % (Auto) Lymph % (Auto) [place] % (Auto) Eos % (Auto) Baso % (Auto) Lymph # (Auto) [place] # (Auto) Eos # (Auto) Baso # (Auto) Abs Immat Gran (auto) Absolute Neuts (auto) Absolute Nucleated RBC Nucleated RBC % (auto) Neutrophils % (Manual) Band Neutrophils % Lymphocytes % (Manual) Monocytes % (Manual) Eosinophils % (Manual) Basophils % (Manual) Myelocytes % Abs Neuts (Manual) Lymphocytes # (Manual) Monocytes # (Manual) Eosinophils # (Manual) Basophils # (Manual) Myelocytes # Platelet Estimate Large Platelets Plt Morphology Comment RBC Morphology Target Cells Stomatocytes VBG pH VBG pCO2 VBG pO2 VBG HCO3 VBG O2 Saturation VBG Base Excess Sodium Potassium Chloride Carbon Dioxide Anion Gap BUN Creatinine Estim Creat Clear Calc Estimated GFR POC Glucose 147 H 145 H 137 H Random Glucose Calcium Phosphorus Magnesium Total Bilirubin AST ALT Alkaline Phosphatase Total Protein Albumin 05/06/24 05/06/24 04:40 04:47 WBC 7.1 RBC 3.81 L Hgb 12.2 L Hct 36.8 L MCV 96.6 MCH 32.0 MCHC 33.2 RDW 15.9 Plt Count 169 D MPV 11.2 Immature Gran % (Auto) Cancelled Neut % (Auto) Cancelled Lymph % (Auto) Cancelled [place] % (Auto) Cancelled Eos % (Auto) Cancelled Baso % (Auto) Cancelled Lymph # (Auto) Cancelled [place] # (Auto) Cancelled Eos # (Auto) Cancelled Baso # (Auto) Cancelled Abs Immat Gran (auto) Cancelled Absolute Neuts (auto) Cancelled Absolute Nucleated RBC 0.000 Nucleated RBC % (auto) 0.0 Neutrophils % (Manual) 67 Band Neutrophils % 1 L Lymphocytes % (Manual) 18 L Monocytes % (Manual) 10 Eosinophils % (Manual) 1 Basophils % (Manual) 2 Myelocytes % 1 Abs Neuts (Manual) 4.8 Lymphocytes # (Manual) 1.3 Monocytes # (Manual) 0.7 Eosinophils # (Manual) 0.1 Basophils # (Manual) 0.1 Myelocytes # 0.1 Platelet Estimate NORMAL Large Platelets PRESENT Plt Morphology Comment NOTED RBC Morphology NOTED Target Cells 1+ (5-14) Stomatocytes 1+ (5-14) VBG pH 7.45 H VBG pCO2 43 VBG pO2 50 VBG HCO3 30 H VBG O2 Saturation 80.0 VBG Base Excess 5.8 Sodium 146 H Potassium 3.6 Chloride 109 H Carbon Dioxide 26 Anion Gap 15 BUN 7 L Creatinine 0.93 Estim Creat Clear Calc 97.4 Estimated GFR > 60 POC Glucose Random Glucose 121 H Calcium 8.7 Phosphorus 2.5 L Magnesium 1.2 L* Total Bilirubin 1.3 H AST 46 H ALT 41 H Alkaline Phosphatase 403 H Total Protein 6.6 Albumin 3.1 L Microbiology Microbiology Results: Microbiology 05/05/24 07:50 Tracheal Aspirate Gram Stain - Final 04/29/24 10:33 Blood - Venous Blood Culture - Final No growth after 5 days. 04/29/24 10:33 Blood - Venous Blood Culture - Final No growth after 5 days. Progress Note: A&P Assessment and plan (1) ETOH abuse: Status: Acute (2) Alcohol abuse with withdrawal: Status: Acute (3) Delirium tremens: Status: Acute (4) DARRELL (acute kidney injury): Status: Acute (5) Pneumonia: Status: Acute (6) Multifocal pneumonia: Status: Acute (7) Acute respiratory failure with hypoxia: Status: Acute (8) Pulmonary aspiration: Status: Acute Plan Neuro: Acute encephalopathy possibly due to alcohol withdrawal syndrome, likes to drink blackberry Keely. CT head upon admission negative for any intracranial pathology Precedex for anxiolysis, as needed IM phenobarb for episodes of agitation. We will taper Precedex as tolerated during the day Close neurological status monitoring in the ICU every hour On IV thiamine and folate due to chronic alcoholism Respiratory: Acute hypoxemic respiratory failure due to aspiration pneumonia CT chest showing multifocal pneumonia Extubated yesterday, still remains high-risk for aspiration given his poor mental status GI: on tube feeds transaminitis: possibly secondary to alcohol liver disease Renal: Acute kidney injury possibly volume depletion, currently resolved Baseline creatinine normal, creatinine today is 0.9 Continue IV Lasix 40 mg b.i.d. as he is net positive for the past several days We will closely monitor I's and O's Avoid nephrotoxic medications hypomagnesemia: will replete scheduled mac twice daily hypophosphatemia: due to poor reserves Heme: Chronic anemia, closely monitor H&H, transfuse for hemoglobin less than 7 grams/deciliter Endocrine: Blood sugars under control Sliding scale insulin as needed On Lantus 10 units daily Hypothyroidism: on levothyroxine Infectious disease: Negative anderson cultures continue Zosyn for possible aspiration pneumonia Musculoskeletal: Decubitus ulcer prevention protocol Lines: Peripheral Prophylaxis: Heparin, famotidine Quality Stroke Does the patient have a stroke diagnosis?: No VTE Prior VTE?: No VTE Risk Level:: Medical - moderate - high VTE Device Contraindication: Treatment Not Indicated VTE Drug Contraindication: N/A - Med Ordered
[2024-05-06] MEDS: Insulin Glargine,Hum.rec.anlog 100 UNIT/ML 10 ML VIAL 10 UNIT SUBCUT (08:43)
[2024-05-06] MEDS: Furosemide 40 MG/4 ML VIAL IVPUSH (08:43)
[2024-05-06] MEDS: Famotidine/PF 20 MG/2 ML VIAL IVPUSH (08:43)
[2024-05-06] MEDS: dexmedeTOMIDidine HCL/NS 400 MCG/100 ML INFUS..BTL 32.24 MCG IVCONT (08:51)
--- NOTE | 2024-05-06 10:02 | MHC.CLN ---
F/U PT EXTUBATED YESTERDAY DISCUSSED AT ROUNDS WITH MD FAILED BEDSIDE NSG SWALLOW-RESEARCH NEUROPSYCHOLOGIST EVAL PENDING CURRENTLY NPO WHEN DIET TO ADVANCE; RECOMMEND 2000DM DIET IN ADDITION TO RESEARCH NEUROPSYCHOLOGIST RECOMMENDATIONS FOLLOWING FOR DIET ADVANCEMENT
--- NOTE | 2024-05-06 11:59 | MHC.SL.SWA ---
Speech Pathologist Impression: Risk of Aspiration, Oropharyngeal Dysphagia Risk of Aspiration Due to: Reduced Cognition Dysphasia Diet Status: No Change Liquid Consistency and Strategies for Safe Swallow: Liquid Intake Recommendation: NPO Solid Food Consistency: Dietary Recommendations: NPO Additional Modifications to Solid Foods: Patient presents with overt s/s of aspiration, s/p extubation 24 hours prior. Recommend continue NPO status, provide oral care for hygiene and comfort, elevate HoB at least 30 degrees. Findings were communicated with RN, RD, and MD via [place] Message. Advised CONCILIATION COURT JUDGE is available for call-in over the weekend if needed. Oral Medication Intake: NPO Please contact the pharmacy regarding appropriate crushable or liquid drug formulations that are available whenever modified delivery is recommended. Supervision While Eating and Drinking for Safe Swallow: PO with CONCILIATION COURT JUDGE Swallowing Recommended Treatments: Compens. Strategy Educat. Recommendation for Speech: Inpatient Speech Therapy Electroneurodiagnostic Technician Clinican/Clinical Fellow: No Supervisory Statement: I have reviewed and agree with the student/clinical fellow's documentation: N/A Speech Language Pathologist: Jess Ferrara M.A., [facility]-CONCILIATION COURT JUDGE
[2024-05-06 12:21] LABS: Glucose, Whole Blood 119 mg/dL (60-115)
--- NOTE | 2024-05-06 13:17 | MHC.CM.PN ---
Pt is much more alert and cooperative today: Precedex taper ongoing: once pt is off dex and not agitated he will transfer to the medical floor for continued care. Pt will need a CARE team consult for + substance use and possible INPT placement. Pt from home: no services. Update given to pt's dtr who called to inquire on pt's clinical status. CM to follow
[2024-05-06 16:22] LABS: Alanine Aminotransferase 37 U/L (0-40); Albumin Level 2.9 g/dL (3.5-5.0); Anion Gap 13 (12-20); Aspartate Amino Transferase 44 U/L (5-37); Blood Urea Nitrogen 8 mg/dL (9-16); Calcium 8.7 mg/dL (8.4-10.2); Carbon Dioxide 29 mmol/L (22-29); Chloride 107 mmol/L (96-108); Creatinine Clr Calc Pharmacy 91.5; Estimated Glomerular Filt Rate > 60; Glucose Random 107 mg/dL (60-115); Potassium 3.4 mmol/L (3.3-5.1); Sodium 146 mmol/L (135-145); Total Protein 6.4 g/dL (6.5-8.0)
--- NOTE | 2024-05-06 17:44 | PC.NURSE ---
Assumed care at 0700 - Unable to maintain off Precedex gtt along with soft restraints - confused, agitated, combative, uncooperative, yelling, pulling at lines. Medicated per APR. Sitter at bedside. Care ongoing.
[2024-05-06 18:27] LABS: Alkaline Phosphatase 354 U/L (39-117)
[2024-05-06 20:09] LABS: Alanine Aminotransferase 38 U/L (0-40); Alkaline Phosphatase 347 U/L (39-117); Anion Gap 12 (12-20); Aspartate Amino Transferase 40 U/L (5-37); Blood Urea Nitrogen 8 mg/dL (9-16); Calcium 8.7 mg/dL (8.4-10.2); Carbon Dioxide 30 mmol/L (22-29); Chloride 108 mmol/L (96-108); Creatinine Clr Calc Pharmacy 91.5; Estimated Glomerular Filt Rate > 60; Glucose Random 101 mg/dL (60-115); Magnesium 1.7 mg/dL (1.6-2.6); Phosphorus 3.2 mg/dL (2.7-4.5); Potassium 3.4 mmol/L (3.3-5.1); Sodium 147 mmol/L (135-145); Total Protein 6.4 g/dL (6.5-8.0)
[2024-05-07] VITALS (25 sets, daily range): BP systolic 108–152; BP diastolic 69–108; PULSE 65–102; RESP 16–25; TEMP 36.3–37.1; O2SAT 88–95; BMI 25.0
[2024-05-07] MEDS: dexmedeTOMIDidine HCL/NS 400 MCG/100 ML INFUS..BTL 27.28 MCG IVCONT ×3 (00:05→18:35)
[2024-05-07] MEDS: Thiamine HCL 500 MG in 0.9 % Sodium Chloride 100 ML 210 MG IV ×2 (00:07→13:19)
[2024-05-07 02:02] LABS: Glucose, Whole Blood 98 mg/dL (60-115)
[2024-05-07 02:02] LABS: Glucose, Whole Blood 109 mg/dL (60-115)
[2024-05-07] MEDS: dexmedeTOMIDidine HCL/NS 400 MCG/100 ML INFUS..BTL 37.2 MCG IVCONT ×5 (02:49→23:34)
[2024-05-07] MEDS: PHENobarbitaL sodium 130 MG/ML VIAL IM ×4 (03:17→16:32)
[2024-05-07] MEDS: Piperacillin Sodium/Tazobactam 4.5 GM in 0.9 % Sodium Chloride 100 ML IV ×4 (03:53→21:06)
[2024-05-07 04:58] LABS: MANUAL DIFF FLAG NO
[2024-05-07 05:05] LABS: Basophils Absolute Auto 0.1 X10*3/uL (0.0-0.2); Basophils Percent Auto 0.8 % (0-2); Eosinophils Absolute Auto 0.2 X10*3/uL (0.0-0.4); Eosinophils Percent Auto 2.9 % (0-4); Hemoglobin 11.6 g/dl (14.0-18.0); Imm Gran Abs Auto 0.29 X10*3/uL (0.00-0.03); Imm Gran Pct Auto 4.7 % (0.0-0.4); Lymphocytes Percent Auto 16.5 % (20-40); Mean Corpuscular HGB Conc 32.2 g/dl (31.0-36.0); Mean Corpuscular Hemoglobin 32.1 pg (27.0-33.0); Mean Corpuscular Volume 99.7 fL (80.0-98.0); Mean Platelet Volume 10.7 fL (9.4-12.4); Monocytes Absolute Auto 0.8 X10*3/uL (0.1-1.2); Monocytes Percent Auto 12.3 % (2-11); Neutrophils Absolute Auto 3.9 x10*3/uL (2.0-8.3); Neutrophils Percent Auto 62.8 % (45-73); Platelet Count 246 X10*3/uL (160-400); Red Blood Count 3.61 X10*6/uL (4.60-5.80); White Blood Count 6.2 X10*3/uL (4.8-10.8)
[2024-05-07 05:24] LABS: Alanine Aminotransferase 31 U/L (0-40); Albumin Level 2.9 g/dL (3.5-5.0); Alkaline Phosphatase 320 U/L (39-117); Anion Gap 17 (12-20); Aspartate Amino Transferase 37 U/L (5-37); Bilirubin Total 0.9 mg/dL (0.0-1.0); Blood Urea Nitrogen 10 mg/dL (9-16); Calcium 8.7 mg/dL (8.4-10.2); Carbon Dioxide 25 mmol/L (22-29); Chloride 110 mmol/L (96-108); Creatinine Clr Calc Pharmacy 96.3; Estimated Glomerular Filt Rate > 60; Glucose Random 107 mg/dL (60-115); Magnesium 1.9 mg/dL (1.6-2.6); Phosphorus 3.2 mg/dL (2.7-4.5); Potassium 3.6 mmol/L (3.3-5.1); Sodium 148 mmol/L (135-145); Total Protein 6.3 g/dL (6.5-8.0)
[2024-05-07] MEDS: Levothyroxine Sodium 100 MCG/5 ML VIAL IVPUSH (05:28)
--- NOTE | 2024-05-07 06:29 | PC.NURSE ---
Assumed care 1899. Pt arousable to voice, oriented to self only. Sedated on precedex - see MAR for titrations. SpO2 >90% on 5L NC. Swelling to R orbital/maxilla area. JULIET Reyes made aware. Around 299 pt becoming increasingly?agitated and?combative, making threats?towards staff. PRN phenobarbital?given with good effect - see MAR. 1:1 sitter and soft limb restraints?maintained for safety.
--- NOTE | 2024-05-07 07:45 | PC.RT ---
Mucomyst should be accompanied by a bronchodilator to prevent possible bronchospasm. VALENCIA aware.Will inform .
[2024-05-07] MEDS: Magnesium Sulfate/H2O 2 GM/50 ML PIGGYBACK IV ×2 (08:04→20:36)
[2024-05-07] MEDS: 0.9 % Sodium Chloride Flush 3 ML SYRINGE IVFLUSH ×3 (08:04→23:36)
[2024-05-07] MEDS: Famotidine/PF 20 MG/2 ML VIAL IVPUSH (08:04)
--- NOTE | 2024-05-07 10:06 | P.PNCC_ITS ---
Subjective Subjective Date of Service: 05/07/24 Interval History: mental status slowly improving, weaning Precedex as tolerated. Critical Care Time (minutes): 35 Physical Exam 2 Vital Signs: Vital Signs: Last Vital Signs Temp 97.3 F 05/07/24 08:00 Pulse 79 05/07/24 09:00 Resp 20 05/07/24 09:00 BP 142/99 H 05/07/24 09:00 Pulse Ox 91 L 05/07/24 09:00 O2 Del Method Nasal Cannula 05/07/24 09:00 O2 Flow Rate 3 05/07/24 09:00 FiO2 40 05/05/24 09:38 BMI result Body Mass Index 25.0 General: acute distress, ill appearing and tired appearing Nutritional Appearance: well nourished and overweight Eyes: Appearance normal, both eyes and all related structures; Alignment and Position: alignment normal and position normal Neck: No lymphadenopathy, no thyromegaly Resp: Bilateral air entry equal, occasional added sounds present Cardio: Regular rate, regular rhythm; Heart sounds: S1 normal heart sound present and S2 normal heart sound present GI: Soft, nontender, no guarding, no hepatosplenomegaly : bladder normal to inspection, bladder normal to palpation, no renal angle tenderness Skin: no rashes or lesions noted and elasticity normal Neuro: confusion +, moves all extremities Objective Data Labs 05/07/24 04:32 05/07/24 04:32 Labs: Laboratory Results - last 24 hr 05/06/24 05/06/24 05/06/24 11:50 15:44 17:29 WBC RBC Hgb Hct MCV MCH MCHC RDW Plt Count MPV Immature Gran % (Auto) Neut % (Auto) Lymph % (Auto) [place] % (Auto) Eos % (Auto) Baso % (Auto) Lymph # (Auto) [place] # (Auto) Eos # (Auto) Baso # (Auto) Abs Immat Gran (auto) Absolute Neuts (auto) Absolute Nucleated RBC Nucleated RBC % (auto) Sodium 146 H Potassium 3.4 Chloride 107 Carbon Dioxide 29 Anion Gap 13 BUN 8 L Creatinine 0.99 Estim Creat Clear Calc 91.5 Estimated GFR > 60 POC Glucose 119 H 109 Random Glucose 107 Calcium 8.7 Phosphorus Magnesium Total Bilirubin 1.0 AST 44 H ALT 37 Alkaline Phosphatase 354 H Total Protein 6.4 L Albumin 2.9 L 05/06/24 05/06/2405/07/25 19:46 23:51 04:32 WBC 6.2 RBC 3.61 L Hgb 11.6 L Hct 36.0 L MCV 99.7 H MCH 32.1 MCHC 32.2 RDW 16.0 Plt Count 246 D MPV 10.7 Immature Gran % (Auto) 4.7 H Neut % (Auto) 62.8 Lymph % (Auto) 16.5 L [place] % (Auto) 12.3 H Eos % (Auto) 2.9 Baso % (Auto) 0.8 Lymph # (Auto) 1.0 L [place] # (Auto) 0.8 Eos # (Auto) 0.2 Baso # (Auto) 0.1 Abs Immat Gran (auto) 0.29 H Absolute Neuts (auto) 3.9 Absolute Nucleated RBC 0.000 Nucleated RBC % (auto) 0.0 Sodium 147 H 148 H Potassium 3.4 3.6 Chloride 108 110 H Carbon Dioxide 30 H 25 Anion Gap 12 17 BUN 8 L 10 Creatinine 0.99 0.94 Estim Creat Clear Calc 91.5 96.3 Estimated GFR > 60 > 60 POC Glucose 98 Random Glucose 101 107 Calcium 8.7 8.7 Phosphorus 3.2 3.2 Magnesium 1.7 1.9 Total Bilirubin 1.0 0.9 AST 40 H 37 ALT 38 31 Alkaline Phosphatase 347 H 320 H Total Protein 6.4 L 6.3 L Albumin 3.0 L 2.9 L Microbiology Microbiology Results: Microbiology 05/05/24 07:50 Tracheal Aspirate Gram Stain - Final 05/05/24 07:50 Tracheal Aspirate Sputum Culture - Final Methicillin Res Staph Aureus 04/29/24 10:33 Blood - Venous Blood Culture - Final No growth after 5 days. 04/29/24 10:33 Blood - Venous Blood Culture - Final No growth after 5 days. Progress Note: A&P Assessment and plan (1) Status post fall: Status: Acute (2) ETOH abuse: Status: Acute (3) Alcohol abuse with withdrawal: Status: Acute (4) Thrombocytopenia: Status: Acute (5) DARRELL (acute kidney injury): Status: Acute (6) Metabolic acidosis: Status: Acute (7) Multifocal pneumonia: Status: Acute (8) Pneumonia: Status: Acute (9) Pulmonary aspiration: Status: Acute (10) Acute respiratory failure with hypoxia: Status: Acute Plan Neuro: Acute encephalopathy possibly due to alcohol withdrawal syndrome, likes to drink blackberry Keely. CT head upon admission negative for any intracranial pathology Precedex for anxiolysis, as needed IM phenobarb for episodes of agitation. We will taper Precedex as tolerated during the day. Close neurological status monitoring in the ICU every hour On IV thiamine and folate due to chronic alcoholism Respiratory: Acute hypoxemic respiratory failure due to aspiration pneumonia CT chest showing multifocal pneumonia Extubated yesterday, still remains high-risk for aspiration given his poor mental status GI: on tube feeds transaminitis: possibly secondary to alcohol liver disease Renal: Continue IV Lasix 40 mg b.i.d. We will closely monitor I's and O's Avoid nephrotoxic medications Heme: Chronic anemia, closely monitor H&H, transfuse for hemoglobin less than 7 grams/deciliter Endocrine: Blood sugars under control Sliding scale insulin as needed On Lantus 10 units daily Hypothyroidism: on levothyroxine Infectious disease: Negative anderson cultures continue Zosyn for possible aspiration pneumonia Musculoskeletal: Decubitus ulcer prevention protocol Lines: Peripheral Prophylaxis: Heparin, famotidine Quality Stroke Does the patient have a stroke diagnosis?: No VTE Prior VTE?: No VTE Risk Level:: Medical - moderate - high VTE Device Contraindication: Treatment Not Indicated VTE Drug Contraindication: N/A - Med Ordered
[2024-05-07 11:39] LABS: Glucose, Whole Blood 110 mg/dL (60-115)
[2024-05-07] MEDS: dexmedeTOMIDidine HCL/NS 400 MCG/100 ML INFUS..BTL 22.32 MCG IVCONT (15:02)
[2024-05-07 17:37] LABS: Glucose, Whole Blood 94 mg/dL (60-115)
[2024-05-07] MEDS: Acetylcysteine 10 % 400 MG/4 ML VIAL INHALE (18:57)
[2024-05-08] VITALS (29 sets, daily range): BP systolic 122–179; BP diastolic 77–109; PULSE 60–92; RESP 12–20; TEMP 36.2–36.9; O2SAT 86–98; BMI 24.4
[2024-05-08] MEDS: Thiamine HCL 500 MG in 0.9 % Sodium Chloride 100 ML 210 MG IV ×2 (01:04→12:20)
[2024-05-08] MEDS: PHENobarbitaL sodium 130 MG/ML VIAL IM ×2 (01:50→20:40)
[2024-05-08] MEDS: dexmedeTOMIDidine HCL/NS 400 MCG/100 ML INFUS..BTL 37.2 MCG IVCONT ×9 (02:13→22:31)
[2024-05-08] MEDS: Piperacillin Sodium/Tazobactam 4.5 GM in 0.9 % Sodium Chloride 100 ML IV ×4 (04:07→21:25)
[2024-05-08] MEDS: Levothyroxine Sodium 100 MCG/5 ML VIAL IVPUSH (04:42)
[2024-05-08 05:13] LABS: Glucose, Whole Blood 107 mg/dL (60-115)
[2024-05-08 05:33] LABS: MANUAL DIFF FLAG NO
[2024-05-08 05:40] LABS: Basophils Absolute Auto 0.1 X10*3/uL (0.0-0.2); Basophils Percent Auto 1.3 % (0-2); Eosinophils Absolute Auto 0.2 X10*3/uL (0.0-0.4); Eosinophils Percent Auto 3.9 % (0-4); Hematocrit 37.4 % (42.0-52.0); Hemoglobin 11.4 g/dl (14.0-18.0); Imm Gran Abs Auto 0.18 X10*3/uL (0.00-0.03); Mean Corpuscular HGB Conc 30.5 g/dl (31.0-36.0); Mean Corpuscular Hemoglobin 31.5 pg (27.0-33.0); Mean Corpuscular Volume 103.3 fL (80.0-98.0); Mean Platelet Volume 10.4 fL (9.4-12.4); Monocytes Absolute Auto 0.7 X10*3/uL (0.1-1.2); Monocytes Percent Auto 11.3 % (2-11); Neutrophils Absolute Auto 3.8 x10*3/uL (2.0-8.3); Neutrophils Percent Auto 64.5 % (45-73); Platelet Count 314 X10*3/uL (160-400); Red Blood Count 3.62 X10*6/uL (4.60-5.80); White Blood Count 5.9 X10*3/uL (4.8-10.8)
[2024-05-08 05:51] LABS: Magnesium 1.9 mg/dL (1.6-2.6)
--- NOTE | 2024-05-08 06:33 | PC.NURSE ---
Assumed care 1899 - pt only alert to self, vague?to place. Sedated on precedex - see MAR for titrations. Pt having episodes of agitation, pulling at lines, trying to get oob - PRN pheno administered per APR. Placed on 5L oxymask to maintain spO2 >90%. 1:1 sitter at bedside for safety.
[2024-05-08] MEDS: Albuterol Sulfate (0.083%) 2.5 MG/3 ML VIAL.NEB INHALE (07:52)
[2024-05-08] MEDS: Acetylcysteine 10 % 400 MG/4 ML VIAL INHALE ×2 (07:52→19:23)
--- NOTE | 2024-05-08 08:03 | PC.RT ---
RT attempted to give svn this am, pt noncompliant, repeatedly removing. The neb soultion was then turned upside down by the pt losing the remaining amount. Nsg aware. Albuterol bid was d/c'd but given this am to accompany a mucolytic. This is recommended as Mucomyst is know to cause brochospasms in some instances. Nsg aware. No adverse effects noted.
[2024-05-08] MEDS: 0.9 % Sodium Chloride Flush 3 ML SYRINGE IVFLUSH ×3 (08:27→20:47)
[2024-05-08] MEDS: Famotidine/PF 20 MG/2 ML VIAL IVPUSH (08:27)
[2024-05-08] MEDS: Magnesium Sulfate/H2O 2 GM/50 ML PIGGYBACK IV ×2 (08:28→20:39)
[2024-05-08 08:49] LABS: Alanine Aminotransferase 24 U/L (0-40); Alkaline Phosphatase 270 U/L (39-117); Anion Gap 17 (12-20); Aspartate Amino Transferase 29 U/L (5-37); Bilirubin Total 0.7 mg/dL (0.0-1.0); Blood Urea Nitrogen 12 mg/dL (9-16); Calcium 8.9 mg/dL (8.4-10.2); Carbon Dioxide 24 mmol/L (22-29); Chloride 113 mmol/L (96-108); Creatinine Clr Calc Pharmacy 79.7; Estimated Glomerular Filt Rate > 60; Glucose Random 113 mg/dL (60-115); Potassium 3.8 mmol/L (3.3-5.1); Sodium 150 mmol/L (135-145); Total Protein 6.4 g/dL (6.5-8.0)
--- NOTE | 2024-05-08 11:21 | P.PNCC_ITS ---
Subjective Subjective Date of Service: 05/08/24 Interval History: no new events overnight, tapering doses of precedex more alert and improving orientation Critical Care Time (minutes): 35 Physical Exam 2 Vital Signs: Vital Signs: Last Vital Signs Temp 97.8 F 05/08/24 08:00 Pulse 68 05/08/24 11:00 Resp 16 05/08/24 11:00 BP 147/91 H 05/08/24 11:00 Pulse Ox 92 05/08/24 11:00 O2 Del Method Nasal Cannula 05/08/24 11:00 O2 Flow Rate 6 05/08/24 11:00 FiO2 40 05/05/24 09:38 BMI result Body Mass Index 24.4 General: Middle-aged male, lying in the bed, having some conversation partly confused Nutritional Appearance: well nourished and overweight Eyes: appearance normal, both eyes and all related structures; Alignment and Position: alignment normal and position normal Neck: No lymphadenopathy, no thyromegaly Resp: bilateral air entry equal, occasional added sounds present Cardio: Regular rate, regular rhythm; Heart sounds: S1 normal heart sound present and S2 normal heart sound present GI: soft, nontender, no guarding, no hepatosplenomegaly : bladder normal to inspection, bladder normal to palpation, no renal angle tenderness Skin: no rashes or lesions noted and elasticity normal Neuro: oriented to person, oriented to place and moves all extremities Objective Data Labs 05/08/24 05:00 05/08/24 07:41 Labs: Laboratory Results - last 24 hr 05/07/24 05/07/24 05/08/24 11:08 17:14 00:17 WBC RBC Hgb Hct MCV MCH MCHC RDW Plt Count MPV Immature Gran % (Auto) Neut % (Auto) Lymph % (Auto) [place] % (Auto) Eos % (Auto) Baso % (Auto) Lymph # (Auto) [place] # (Auto) Eos # (Auto) Baso # (Auto) Abs Immat Gran (auto) Absolute Neuts (auto) Absolute Nucleated RBC Nucleated RBC % (auto) Sodium Potassium Chloride Carbon Dioxide Anion Gap BUN Creatinine Estim Creat Clear Calc Estimated GFR POC Glucose 110 94 107 Random Glucose Calcium Phosphorus Magnesium Total Bilirubin AST ALT Alkaline Phosphatase Total Protein Albumin 05/08/24 05/08/24 05:00 07:41 WBC 5.9 RBC 3.62 L Hgb 11.4 L Hct 37.4 L MCV 103.3 H MCH 31.5 MCHC 30.5 L RDW 16.0 Plt Count 314 D MPV 10.4 Immature Gran % (Auto) 3.0 H Neut % (Auto) 64.5 Lymph % (Auto) 16.0 L [place] % (Auto) 11.3 H Eos % (Auto) 3.9 Baso % (Auto) 1.3 Lymph # (Auto) 1.0 L [place] # (Auto) 0.7 Eos # (Auto) 0.2 Baso # (Auto) 0.1 Abs Immat Gran (auto) 0.18 H Absolute Neuts (auto) 3.8 Absolute Nucleated RBC 0.000 Nucleated RBC % (auto) 0.0 Sodium 150 H Potassium 3.8 Chloride 113 H Carbon Dioxide 24 Anion Gap 17 BUN 12 Creatinine 1.03 Estim Creat Clear Calc 79.7 Estimated GFR > 60 POC Glucose Random Glucose 113 Calcium 8.9 Phosphorus 3.0 Magnesium 1.9 Total Bilirubin 0.7 AST 29 ALT 24 Alkaline Phosphatase 270 H Total Protein 6.4 L Albumin 3.0 L Microbiology Microbiology Results: Microbiology 05/05/24 07:50 Tracheal Aspirate Gram Stain - Final 05/05/24 07:50 Tracheal Aspirate Sputum Culture - Final Methicillin Res Staph Aureus 04/29/24 10:33 Blood - Venous Blood Culture - Final No growth after 5 days. 04/29/24 10:33 Blood - Venous Blood Culture - Final No growth after 5 days. Progress Note: A&P Assessment and plan (1) Transaminitis: Status: Acute (2) Multifocal pneumonia: Status: Acute (3) Pneumonia: Status: Acute (4) Acute respiratory failure with hypoxia: Status: Acute (5) Thrombocytopenia: Status: Acute Plan Neuro: Acute encephalopathy possibly due to alcohol withdrawal syndrome, likes to drink blackberry Keely. CT head upon admission negative for any intracranial pathology Precedex for anxiolysis, as needed IM phenobarb for episodes of agitation. Taper Precedex as tolerated during the day. Close neurological status monitoring in the ICU every hour On IV thiamine and folate due to chronic alcoholism Respiratory: Acute hypoxemic respiratory failure due to aspiration pneumonia CT chest showing multifocal pneumonia Extubated 3days ago, still remains high-risk for aspiration given his poor mental status GI: on tube feeds transaminitis: possibly secondary to alcohol liver disease Renal: will stop IV Lasix 40 mg b.i.d. We will closely monitor I's and O's Avoid nephrotoxic medications Hypernatremia: secondary to diuresis will withhold diuresis will start D5W at 50cc/hr Heme: Chronic anemia, closely monitor H&H, transfuse for hemoglobin less than 7 grams/deciliter Endocrine: Blood sugars under control Sliding scale insulin as needed On Lantus 10 units daily Hypothyroidism: on levothyroxine Infectious disease: Negative anderson cultures continue Zosyn for possible aspiration pneumonia Musculoskeletal: Decubitus ulcer prevention protocol Lines: Peripheral Prophylaxis: Heparin, famotidine Quality Stroke Does the patient have a stroke diagnosis?: No VTE Prior VTE?: No VTE Risk Level:: Medical - moderate - high VTE Device Contraindication: Treatment Not Indicated VTE Drug Contraindication: N/A - Med Ordered
[2024-05-08] MEDS: Dextrose 5 % 1,000 ML 50 ML IVCONT ×2 (12:20→22:33)
[2024-05-08 12:59] LABS: Glucose, Whole Blood 109 mg/dL (60-115)
--- NOTE | 2024-05-08 19:27 | PC.NURSE ---
Addendum entered by Shellie Bruce RN 05/11/24 00:04: correction, Speech saw patient and patient failed swallow evaluation, will reassess tomorrow Original Note: Neuro: patient alert and discoriented to place, time and situation, impulsive but easily redirectable, Sitter at bedside? Resp: On Oximask 5L at beginning of the shift then refused and changed to NC 6L, O2 sat 91-96%? Cardiac:BP slightly elevated, MD aware to monitor for now. GI/: NPO, failed previous swallow evaluations with nurse and speech, External Purewick in place, voiding concentrated yellow urine..? Integumentary/Musculoskeletal: Abrasions to knees bilaterally and right great toe, old diabetic ulcer to left plantar SHIRLEY, skin tear to right ankle xeroform and pink foam.? Psychosocial (family etc.):Sister came to see patient in AM? Infectious Disease: MRSA in sputum on contact precautions?
[2024-05-08] MEDS: hydrALAZINE HCl 20 MG/ML VIAL 10 MG IVPUSH (20:28)
[2024-05-08 21:05] LABS: Glucose, Whole Blood 122 mg/dL (60-115)
[2024-05-09] VITALS (28 sets, daily range): BP systolic 110–176; BP diastolic 63–111; PULSE 62–99; RESP 14–22; TEMP 36.2–36.8; O2SAT 91–97; BMI 24.7
[2024-05-09] MEDS: PHENobarbitaL sodium 130 MG/ML VIAL IM ×3 (00:43→12:47)
[2024-05-09 01:01] LABS: Glucose, Whole Blood 138 mg/dL (60-115)
[2024-05-09] MEDS: dexmedeTOMIDidine HCL/NS 400 MCG/100 ML INFUS..BTL 37.2 MCG IVCONT ×10 (01:10→23:21)
--- NOTE | 2024-05-09 02:00 | PC.NURSE ---
CARE ASSUMED 7PM..REMAINS PRECIDEX 1.5 MCG/KG/HOUR..AWAKE..DISORIENTED TO PLACE/TIME/RECENT EVENTS...BANKS...PRN PHENOBARBITO IM GIVEN 20:40 AND 00:43 FOR INCREASED AGITATION/CLIMBING OOB... I'M GOING INTO THAT BOX OVER THERE ...D5W 50 CC/HR...PURWIK EXTERNAL CATHETER COLLECTING DARK YELLOW URINE..REMAINS WITH OLD ABRASIONS TO FORHEAD/KNEES/ANKLE...ULCER TO LEFT FOOT PLANTAR SURFACE W/O DRAINAGE..BP REMAINES ELEVATED PER SHIFT REPORT...HYDRALAZINE 10MG IV X1 GIVEN WITH TRANSIENT EFFECT..PROVIDER AWARE..1;1 SITTER REMAINS AT BEDSIDE..O2 6 L/M CANNULA....OCASSIONAL LOOSE COUGH...SAO2 92-95%..REMAINS NPO,,SPEECH TO RE-EVALUATE IN AM
[2024-05-09] MEDS: Piperacillin Sodium/Tazobactam 4.5 GM in 0.9 % Sodium Chloride 100 ML IV ×4 (03:27→22:00)
[2024-05-09 04:54] LABS: MANUAL DIFF FLAG NO
[2024-05-09 04:56] LABS: Basophils Absolute Auto 0.1 X10*3/uL (0.0-0.2); Basophils Percent Auto 1.4 % (0-2); Eosinophils Absolute Auto 0.3 X10*3/uL (0.0-0.4); Eosinophils Percent Auto 3.9 % (0-4); Hematocrit 36.9 % (42.0-52.0); Hemoglobin 11.4 g/dl (14.0-18.0); Imm Gran Abs Auto 0.18 X10*3/uL (0.00-0.03); Imm Gran Pct Auto 2.8 % (0.0-0.4); Lymphocytes Absolute Auto 1.1 X10*3/uL (1.2-4.9); Lymphocytes Percent Auto 17.7 % (20-40); Mean Corpuscular HGB Conc 30.9 g/dl (31.0-36.0); Mean Corpuscular Hemoglobin 31.8 pg (27.0-33.0); Mean Corpuscular Volume 102.8 fL (80.0-98.0); Mean Platelet Volume 10.5 fL (9.4-12.4); Monocytes Absolute Auto 0.7 X10*3/uL (0.1-1.2); Monocytes Percent Auto 10.4 % (2-11); Neutrophils Absolute Auto 4.1 x10*3/uL (2.0-8.3); Neutrophils Percent Auto 63.8 % (45-73); Platelet Count 392 X10*3/uL (160-400); Red Blood Count 3.59 X10*6/uL (4.60-5.80); Red Cell Distribution Width 15.9 % (11.0-16.0); White Blood Count 6.4 X10*3/uL (4.8-10.8)
[2024-05-09 05:15] LABS: Alanine Aminotransferase 18 U/L (0-40); Albumin Level 2.8 g/dL (3.5-5.0); Alkaline Phosphatase 241 U/L (39-117); Anion Gap 14 (12-20); Aspartate Amino Transferase 30 U/L (5-37); Bilirubin Total 0.6 mg/dL (0.0-1.0); Blood Urea Nitrogen 9 mg/dL (9-16); Calcium 8.9 mg/dL (8.4-10.2); Carbon Dioxide 29 mmol/L (22-29); Chloride 111 mmol/L (96-108); Creatinine Clr Calc Pharmacy 75.3; Estimated Glomerular Filt Rate > 60; Glucose Random 136 mg/dL (60-115); Magnesium 1.7 mg/dL (1.6-2.6); Phosphorus 2.2 mg/dL (2.7-4.5); Potassium 3.6 mmol/L (3.3-5.1); Sodium 150 mmol/L (135-145); Total Protein 6.3 g/dL (6.5-8.0)
[2024-05-09] MEDS: Levothyroxine Sodium 100 MCG/5 ML VIAL IVPUSH (05:25)
[2024-05-09] MEDS: Potassium Phosphate/NS 15 MMOL/250 ML PLAST..BAG 62.5 MMOL IV (05:41)
[2024-05-09] MEDS: hydrALAZINE HCl 20 MG/ML VIAL 10 MG IVPUSH (05:41)
[2024-05-09] MEDS: Famotidine/PF 20 MG/2 ML VIAL IVPUSH (07:53)
[2024-05-09] MEDS: 0.9 % Sodium Chloride Flush 3 ML SYRINGE IVFLUSH ×2 (07:53→16:21)
[2024-05-09] MEDS: Magnesium Sulfate/H2O 2 GM/50 ML PIGGYBACK IV (07:54)
[2024-05-09] MEDS: Midazolam HCl 2 MG/2 ML VIAL 4 MG IVPUSH ×4 (08:15→23:15)
[2024-05-09] MEDS: THIAMINE HCL IV ×2 (09:47)
[2024-05-09] MEDS: DEXTROSE 5% IV ×2 (09:47)
--- NOTE | 2024-05-09 09:56 | MHC.CLN ---
F/U DISCUSSED AT ROUNDS WITH PT IS DAY 3 NPO-RESCUE INSTRUCTOR TO RE-EVAL TODAY WHEN DIET TO ADVANCE; RECOMMEND 2000DM DIET IN ADDITION TO RESCUE INSTRUCTOR RECOMMENDATIONS FOLLOWING FOR DIET ADVANCEMENT CONSULT RD IF ALTERNATIVE NUTRITION NEEDED
[2024-05-09] MEDS: Folic Acid 2 MG in 0.9 % Sodium Chloride 50 ML 100.4 MG IV (10:26)
[2024-05-09] MEDS: Dextrose 5 % 1,000 ML 100 ML IVCONT (10:26)
[2024-05-09] MEDS: Albumin Human 25 % 100 ML IV ×3 (11:07→23:21)
--- NOTE | 2024-05-09 11:26 | P.PNCC_ITS ---
Subjective Subjective Date of Service: 05/09/24 Interval History: 58-year-old gentleman with underlying alcohol dependence, obesity, diabetes mellitus being admitted for hyperglycemia and alcohol withdrawal on background of acute metabolic acidosis with acute renal failure and hyponatremia likely secondary to beer potomania. Required intubation on 04/30/2024 secondary to high sedative drip requirements for underlying delirium tremens. Extubated on 05/05, however remains with significant toxic encephalopathy requiring Precedex drip. No events overnight. Critical Care Time (minutes): 0 Physical Exam 2 Vital Signs: Vital Signs: Last Vital Signs Temp 98.3 F 05/09/24 07:59 Pulse 78 05/09/24 09:00 Resp 19 05/09/24 09:00 BP 110/69 05/09/24 09:00 Pulse Ox 94 05/09/24 09:00 O2 Del Method Nasal Cannula 05/09/24 09:00 O2 Flow Rate 6 05/09/24 09:00 FiO2 40 05/05/24 09:38 BMI result Body Mass Index 24.7 Const: General: no acute distress and lethargic (Intermittently agitated) O rientation/consciousness: lethargic (Intermittently agitated) Eyes: Sclerae: sclerae normal EOM: EOMs intact bilaterally Neck: Neck: Yes no lymphadenopathy, Yes trachea midline and Yes supple Resp: Effort & Inspection: normal respiratory effort and no respiratory distress Auscultation: clear to auscultation bilaterally Cardio: Rate: regular rate Rhythm: regular rhythm Heart sounds: no gallops, no murmurs and no rubs GI: Palpation (GI): Soft to palpation and Other GI palpation findings present ( Nontender) Auscultation: normal bowel sounds Extrem: General: Yes no pedal edema, No clubbing and No cyanosis Objective Data Labs 05/09/24 04:13 05/09/24 04:13 Labs: Laboratory Results - last 24 hr 05/08/24 05/08/24 05/08/24 11:43 18:07 23:26 WBC RBC Hgb Hct MCV MCH MCHC RDW Plt Count MPV Immature Gran % (Auto) Neut % (Auto) Lymph % (Auto) [place] % (Auto) Eos % (Auto) Baso % (Auto) Lymph # (Auto) [place] # (Auto) Eos # (Auto) Baso # (Auto) Abs Immat Gran (auto) Absolute Neuts (auto) Absolute Nucleated RBC Nucleated RBC % (auto) Sodium Potassium Chloride Carbon Dioxide Anion Gap BUN Creatinine Estim Creat Clear Calc Estimated GFR POC Glucose 109 122 H 138 H Random Glucose Calcium Phosphorus Magnesium Total Bilirubin AST ALT Alkaline Phosphatase Total Protein Albumin 05/09/24 04:13 WBC 6.4 RBC 3.59 L Hgb 11.4 L Hct 36.9 L MCV 102.8 H MCH 31.8 MCHC 30.9 L RDW 15.9 Plt Count 392 MPV 10.5 Immature Gran % (Auto) 2.8 H Neut % (Auto) 63.8 Lymph % (Auto) 17.7 L [place] % (Auto) 10.4 Eos % (Auto) 3.9 Baso % (Auto) 1.4 Lymph # (Auto) 1.1 L [place] # (Auto) 0.7 Eos # (Auto) 0.3 Baso # (Auto) 0.1 Abs Immat Gran (auto) 0.18 H Absolute Neuts (auto) 4.1 Absolute Nucleated RBC 0.000 Nucleated RBC % (auto) 0.0 Sodium 150 H Potassium 3.6 Chloride 111 H Carbon Dioxide 29 Anion Gap 14 BUN 9 Creatinine 1.09 Estim Creat Clear Calc 75.3 Estimated GFR > 60 POC Glucose Random Glucose 136 H Calcium 8.9 Phosphorus 2.2 L Magnesium 1.7 Total Bilirubin 0.6 AST 30 ALT 18 Alkaline Phosphatase 241 H Total Protein 6.3 L Albumin 2.8 L Microbiology Microbiology Results: Microbiology 05/05/24 07:50 Tracheal Aspirate Gram Stain - Final 05/05/24 07:50 Tracheal Aspirate Sputum Culture - Final Methicillin Res Staph Aureus 04/29/24 10:33 Blood - Venous Blood Culture - Final No growth after 5 days. 04/29/24 10:33 Blood - Venous Blood Culture - Final No growth after 5 days. Progress Note: A&P Assessment and plan (1) Delirium tremens: Status: Acute Plan Assessment: 58-year-old gentleman being admitted with alcohol withdrawal further complicated by acute hyponatremia likely secondary to beer potomania, acute renal failure with metabolic acidosis and hypoglycemia Plan: Neuro: Alcohol withdrawal, still with significant encephalopathy, continue to titrate off sedative drips as tolerated. Cardiac: No acute issues. Pulmonary: Required intubation for high-dose sedative drips and also hypoxia secondary to pulmonary aspiration. Extubated 05/05/2024. Renal: Hypernatremia, continue on D5. Endo: No acute issues. Underlying diabetes mellitus, continue sliding scale insulin. Underlying hypothyroidism, continue Synthroid. GI: No acute issues. ID: No acute issues Heme/Onc: No acute issues. Psych: No acute issues. Miscellaneous: No acute issues. Prophylaxis: Heparin Diet: NPO Quality Stroke Does the patient have a stroke diagnosis?: No VTE Prior VTE?: No VTE Risk Level:: Medical - moderate - high VTE Device Contraindication: Treatment Not Indicated VTE Drug Contraindication: N/A - Med Ordered
[2024-05-09 13:08] LABS: Glucose, Whole Blood 159 mg/dL (60-115)
[2024-05-09] MEDS: Insulin Lispro 100 UNIT/ML 3 ML VIAL SUBCUT ×2 (13:33→23:52)
--- NOTE | 2024-05-09 13:46 | MHC.CM.PN ---
Pt continues care on ICU: did well w/SPE eval: diet to be upgraded: off Dex: will monitor for s/sx w/d and treat accordingly. Should transfer to the medical floor in the next 24 hours if stable. Will need CARE team consult for INPT ETOH support
--- NOTE | 2024-05-09 13:49 | MHC.CM.PN ---
Pt continues care in ICU: off of dex: continue monitoring for s/sx withdrawal. Pt will need CARE team consult for possible INPT recovery care. CM to follow
--- NOTE | 2024-05-09 15:08 | MHC.SL.SWA ---
Speech Pathologist Impression: Moderate to significant oropharyngeal dysphagia secondary to AMS, risk for aspiration s/p extubation Risk of Aspiration Due to: Reduced Cognition Dysphasia Diet Status: Liquid Consistency and Strategies for Safe Swallow: Liquid Intake Recommendation: NPO Liquid Intake Strategies: Solid Food Consistency: Dietary Recommendations: NPO Additional Modifications to Solid Foods: PRIOR MATERIALS TECHNICIAN ASSESSMENT NOTE: Patient presents with overt s/s of aspiration, s/p extubation 24 hours prior. Recommend continue NPO status, provide oral care for hygiene and comfort, elevate HoB at least 30 degrees. Findings were communicated with RN, RD, and MD via [facility] Message. Advised MATERIALS TECHNICIAN is available for call-in over the weekend if needed. Oral Medication Intake: NPO Please contact the pharmacy regarding appropriate crushable or liquid drug formulations that are available whenever modified delivery is recommended. Compensatory Strategies and Precautions to be Taken for Safe Swallow: Supervision While Eating and Drinking for Safe Swallow: PO with MATERIALS TECHNICIAN Foods to Avoid: Swallowing Recommended Treatments: Compens. Strategy Educat. Recommendation for Speech: Inpatient Speech Therapy Comment: MATERIALS TECHNICIAN ASSESSMENT NOTE 05/09/24: Pt restless but more alert, able to follow simple commands and endorsed feeling thirsty. RN and local sales associate repositioned pt upright, minimal trial of thin liquid (water) by cup sip resulted in immediate cough, indicating airway penetration. Pt tolerated several tsps of HTL but trials discontinued as pt easily fatigued (medication effect?). MATERIALS TECHNICIAN consulted with RN, recc NPO, MATERIALS TECHNICIAN to re-assess daily. Frequency/Duration: Date Range for Service Req: Timeline to reassess: Director Of Residence Life Clinican/Clinical Fellow: No Supervisory Statement: I have reviewed and agree with the student/clinical fellow's documentation: No Speech Language Pathologist: Vanessa Alexander M.S., [facility]-MATERIALS TECHNICIAN
[2024-05-09 18:02] LABS: Glucose, Whole Blood 138 mg/dL (60-115)
--- NOTE | 2024-05-09 19:30 | PC.NURSE ---
Neuro: patient alert and disoriented to place, time and situation, impulsive unable to redirect x2, Versed given as ordered,? tolerated welland good effect noted, Sitter at bedside? Resp: NC 6L increased to 7L for desat, O2 sat 91-96% currently? Cardiac:BP? GI/: Speech in to see patient recommended thick liquids, patient too sedated after Versed to attempt PO, External Purewick in place, voiding concentrated yellow urine..? 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 Psychosocial (family etc.):Sister came to see patient in AM? Infectious Disease: MRSA in sputum on contact precautions
[2024-05-10] VITALS (26 sets, daily range): BP systolic 108–189; BP diastolic 44–112; PULSE 62–94; RESP 14–25; TEMP 36–37.1; O2SAT 90–96; BMI 24.7
[2024-05-10] MEDS: Labetalol HCL 100 MG/20 ML VIAL 10 MG IVPUSH (00:36)
[2024-05-10] MEDS: dexmedeTOMIDidine HCL/NS 400 MCG/100 ML INFUS..BTL 37.2 MCG IVCONT ×10 (00:37→23:27)
[2024-05-10] MEDS: Dextrose 5 % 1,000 ML 100 ML IVCONT (00:37)
[2024-05-10 01:18] LABS: Glucose, Whole Blood 164 mg/dL (60-115)
[2024-05-10] MEDS: hydrALAZINE HCl 20 MG/ML VIAL 10 MG IVPUSH ×2 (02:11→03:32)
[2024-05-10] MEDS: Albumin Human 25 % 100 ML IV (03:33)
[2024-05-10] MEDS: Midazolam HCl 2 MG/2 ML VIAL 4 MG IVPUSH ×4 (03:33→23:13)
[2024-05-10] MEDS: Piperacillin Sodium/Tazobactam 4.5 GM in 0.9 % Sodium Chloride 100 ML IV (04:22)
[2024-05-10] MEDS: PHENobarbitaL sodium 130 MG/ML VIAL IM ×2 (05:20→15:13)
[2024-05-10] MEDS: Levothyroxine Sodium 100 MCG/5 ML VIAL IVPUSH (05:20)
[2024-05-10 05:29] LABS: Glucose, Whole Blood 132 mg/dL (60-115)
[2024-05-10 05:29] LABS: VBG Base Excess 7.5 mmol/L; VBG HCO3 33 mmol/L (22-26); VBG pCO2 49 mmHg; VBG pH 7.42 (7.32-7.43); VBG pO2 29 mmHg
[2024-05-10 05:35] LABS: Venous Blood Gas Refer to POC result
[2024-05-10 05:47] LABS: MANUAL DIFF FLAG NO
[2024-05-10 05:49] LABS: Basophils Absolute Auto 0.1 X10*3/uL (0.0-0.2); Basophils Percent Auto 1.1 % (0-2); Eosinophils Absolute Auto 0.2 X10*3/uL (0.0-0.4); Eosinophils Percent Auto 2.8 % (0-4); Hematocrit 34.4 % (42.0-52.0); Hemoglobin 10.8 g/dl (14.0-18.0); Imm Gran Abs Auto 0.17 X10*3/uL (0.00-0.03); Imm Gran Pct Auto 2.7 % (0.0-0.4); Lymphocytes Absolute Auto 1.1 X10*3/uL (1.2-4.9); Lymphocytes Percent Auto 17.6 % (20-40); Mean Corpuscular HGB Conc 31.4 g/dl (31.0-36.0); Mean Corpuscular Hemoglobin 31.8 pg (27.0-33.0); Mean Corpuscular Volume 101.2 fL (80.0-98.0); Mean Platelet Volume 10.2 fL (9.4-12.4); Monocytes Absolute Auto 0.5 X10*3/uL (0.1-1.2); Monocytes Percent Auto 8.1 % (2-11); Neutrophils Absolute Auto 4.3 x10*3/uL (2.0-8.3); Neutrophils Percent Auto 67.7 % (45-73); Platelet Count 419 X10*3/uL (160-400); Red Cell Distribution Width 15.8 % (11.0-16.0); White Blood Count 6.4 X10*3/uL (4.8-10.8)
[2024-05-10] MEDS: Midazolam HCl 2 MG/2 ML VIAL IVPUSH (06:02)
[2024-05-10 06:07] LABS: Albumin Level 3.6 g/dL (3.5-5.0); Anion Gap 15 (12-20); Blood Urea Nitrogen 6 mg/dL (9-16); Carbon Dioxide 27 mmol/L (22-29); Chloride 106 mmol/L (96-108); Creatinine Clr Calc Pharmacy 102.6; Estimated Glomerular Filt Rate > 60; Glucose Random 139 mg/dL (60-115); Magnesium 1.5 mg/dL (1.6-2.6); Phosphorus 2.4 mg/dL (2.7-4.5); Potassium 3.3 mmol/L (3.3-5.1); Sodium 145 mmol/L (135-145)
[2024-05-10] MEDS: Potassium Phosphate/NS 15 MMOL/250 ML PLAST..BAG 62.5 MMOL IV ×2 (06:17→10:34)
--- NOTE | 2024-05-10 06:23 | PC.NURSE ---
Upon initial assessment at 1900- pt A&Ox1, precedex gtt infusing per APR, 1:1 sitter and telesitter at bedside for safety. Occasionally restless, agitated, pulling at lines/tubes, attempting to get OOB- PRN Versed 4 mg IV given x3 and Phenobarbital 130 mg IM given x1 per APR with good effect. NSR on tele HR 60-80s. SBP up to 170-180s, COMPUTER NETWORK SPECIALIST Shahid notified- given labetolol 10 mg IV x1 with little effect, followed by hydralazine 10 mg IV x2 given with some effect, SBP down to 150s. Oxygen titrated to 5L NC to maintain SpO2 > 92%. NPO. Male external purewick in place, voided approx 800 mL overnight. No BM. See skin integrity assessment for chronic wounds. New PIV placed. Repositioned in bed q2hr with wedges/pillows, bed locked in lowest position, alarm on. See EMR/flowsheet for further details.
[2024-05-10] MEDS: Famotidine/PF 20 MG/2 ML VIAL IVPUSH (08:39)
[2024-05-10] MEDS: THIAMINE HCL IV (08:40)
[2024-05-10] MEDS: Magnesium Sulfate/H2O 2 GM/50 ML PIGGYBACK IV (08:40)
[2024-05-10] MEDS: DEXTROSE 5% IV (08:40)
[2024-05-10] MEDS: 0.9 % Sodium Chloride Flush 3 ML SYRINGE IVFLUSH ×3 (08:40→23:16)
[2024-05-10] MEDS: Folic Acid 2 MG in 0.9 % Sodium Chloride 50 ML 100 MG IV (08:40)
--- NOTE | 2024-05-10 09:09 | PM.CCPN ---
Subjective Subjective Date of Service: 05/10/24 Interval History: 58-year-old gentleman with underlying alcohol dependence, obesity, diabetes mellitus being admitted for hyperglycemia and alcohol withdrawal on background of acute metabolic acidosis with acute renal failure and hyponatremia likely secondary to beer potomania. Required intubation on 04/30/2024 secondary to high sedative drip requirements for underlying delirium tremens. Extubated on 05/05, however remains with significant toxic encephalopathy requiring Precedex drip. No events overnight. Critical Care Time (minutes): 0 Physical Exam Vital Signs: Vital Signs: Last Vital Signs Temp 98.8 F 05/10/24 08:00 Pulse 82 05/10/24 08:00 Resp 18 05/10/24 08:00 BP 132/75 05/10/24 08:00 Pulse Ox 95 05/10/24 08:00 O2 Del Method Nasal Cannula 05/10/24 08:00 O2 Flow Rate 5 05/10/24 08:00 FiO2 40 05/05/24 09:38 BMI result Body Mass Index 24.7 Const: General: no acute distress and lethargic (Intermittently agitated) Orientation/consciousness: lethargic (Intermittently agitated) Eyes: Sclerae: sclerae normal EOM: EOMs intact bilaterally Neck: Neck: Yes no lymphadenopathy, Yes trachea midline and Yes supple Resp: Effort & Inspection: normal respiratory effort and no respiratory distress Auscultation: clear to auscultation bilaterally Cardio: Rate: regular rate Rhythm: regular rhythm Heart sounds: no gallops, no murmurs and no rubs GI: Palpation (GI): Soft to palpation and Other GI palpation findings present ( Nontender) Auscultation: normal bowel sounds Extrem: General: Yes no pedal edema, No clubbing and No cyanosis Objective Data Labs 05/10/24 05:14 05/10/24 05:14 Labs: Laboratory Results - last 24 hr 05/09/24 05/09/24 05/09/24 12:02 17:31 23:42 WBC RBC Hgb Hct MCV MCH MCHC RDW Plt Count MPV Immature Gran % (Auto) Neut % (Auto) Lymph % (Auto) [place] % (Auto) Eos % (Auto) Baso % (Auto) Lymph # (Auto) [place] # (Auto) Eos # (Auto) Baso # (Auto) Abs Immat Gran (auto) Absolute Neuts (auto) Absolute Nucleated RBC Nucleated RBC % (auto) VBG pH VBG pCO2 VBG pO2 VBG HCO3 VBG O2 Saturation VBG Base Excess Sodium Potassium Chloride Carbon Dioxide Anion Gap BUN Creatinine Estim Creat Clear Calc Estimated GFR POC Glucose 159 H 138 H 164 H Random Glucose Calcium Phosphorus Magnesium Albumin 05/10/24 05/10/24 05/10/24 05:04 05:14 05:18 WBC 6.4 RBC 3.40 L Hgb 10.8 L Hct 34.4 L MCV 101.2 H MCH 31.8 MCHC 31.4 RDW 15.8 Plt Count 419 H MPV 10.2 Immature Gran % (Auto) 2.7 H Neut % (Auto) 67.7 Lymph % (Auto) 17.6 L [place] % (Auto) 8.1 Eos % (Auto) 2.8 Baso % (Auto) 1.1 Lymph # (Auto) 1.1 L [place] # (Auto) 0.5 Eos # (Auto) 0.2 Baso # (Auto) 0.1 Abs Immat Gran (auto) 0.17 H Absolute Neuts (auto) 4.3 Absolute Nucleated RBC 0.000 Nucleated RBC % (auto) 0.0 VBG pH 7.42 VBG pCO2 49 VBG pO2 29 VBG HCO3 33 H VBG O2 Saturation 40.0 VBG Base Excess 7.5 Sodium 145 Potassium 3.3 Chloride 106 Carbon Dioxide 27 Anion Gap 15 BUN 6 L Creatinine 0.80 Estim Creat Clear Calc 102.6 Estimated GFR > 60 POC Glucose 132 H Random Glucose 139 H Calcium 9.0 Phosphorus 2.4 L Magnesium 1.5 L Albumin 3.6 Microbiology Microbiology Results: Microbiology 05/05/24 07:50 Tracheal Aspirate Gram Stain - Final 05/05/24 07:50 Tracheal Aspirate Sputum Culture - Final Methicillin Res Staph Aureus 04/29/24 10:33 Blood - Venous Blood Culture - Final No growth after 5 days. 04/29/24 10:33 Blood - Venous Blood Culture - Final No growth after 5 days. Progress Note: A&P Assessment and plan (1) Delirium tremens: Status: Acute Plan Assessment: 58-year-old gentleman being admitted with alcohol withdrawal further complicated by acute hyponatremia likely secondary to beer potomania, acute renal failure with metabolic acidosis and hypoglycemia Plan: Neuro: Alcohol withdrawal, still with significant encephalopathy, continue to titrate off sedative drips as tolerated. Cardiac: No acute issues. Pulmonary: Required intubation for high-dose sedative drips and also hypoxia secondary to pulmonary aspiration. Extubated 05/05/2024. Renal: Hypernatremia, continue on D5. Endo: No acute issues. Underlying diabetes mellitus, continue sliding scale insulin. Underlying hypothyroidism, continue Synthroid. GI: No acute issues. ID: No acute issues Heme/Onc: No acute issues. Psych: No acute issues. Miscellaneous: No acute issues. Prophylaxis: Heparin Diet: PPN Quality Stroke Does the patient have a stroke diagnosis?: No VTE Prior VTE?: No VTE Risk Level:: Medical - moderate - high VTE Device Contraindication: Treatment Not Indicated VTE Drug Contraindication: N/A - Med Ordered
--- NOTE | 2024-05-10 09:37 | MHC.CLN ---
F/U PT TO REMAINS NPO PER DRY KILN BURNER DISCUSSED AT ROUNDS WITH MD PLAN TO START PPN TODAY REVIEWED LABS DISCUSSED WITH PHARMACY RECOMMEND PPN AT 60ML/HR TO PROVIDE 734KCALS, 144G DEXTROSE, 61G PROTEIN REPLETE LYTES NEEDED. CHECK TRIGS SEE FULL CLINICAL NUTRITION ASSESSMENT
--- NOTE | 2024-05-10 10:27 | MHC.SLORD ---
Speech Language Pathology Order Status: Pt reccomended NPO on 05/09 d/t overt s/s aspiration on thin liquids and fatigue. SOFTWARE WRITER attempted to see pt for re-evaluation of swallow. Pt sedated; inappropriate for eval at this time. RN to Pan SOFTWARE WRITER when pt is appropriate for eval.
[2024-05-10] MEDS: Dextrose 5 % 1,000 ML 50 ML IVCONT (10:33)
[2024-05-10] MEDS: Insulin Lispro 100 UNIT/ML 3 ML VIAL SUBCUT ×2 (12:06→23:58)
[2024-05-10 12:10] LABS: Glucose, Whole Blood 166 mg/dL (60-115)
[2024-05-10] MEDS: Heparin Sodium,Porcine 5,000 UNIT/ML VIAL 5000 UNIT SUBCUT ×2 (14:55→23:16)
--- NOTE | 2024-05-10 14:59 | MHC.SL.SWA ---
Risk of Aspiration Due to: Reduced Cognition Dysphasia Diet Status: NPO Liquid Consistency and Strategies for Safe Swallow: Liquid Intake Recommendation: NPO Liquid Intake Strategies: Solid Food Consistency: Dietary Recommendations: NPO Oral Medication Intake: NPO Please contact the pharmacy regarding appropriate crushable or liquid drug formulations that are available whenever modified delivery is recommended. Compensatory Strategies and Precautions to be Taken for Safe Swallow: Supervision While Eating and Drinking for Safe Swallow: PO with BLINDMAKER Swallowing Recommended Treatments: Compens. Strategy Educat. Recommendation for Speech: Inpatient Speech Therapy Pt tolerated ice chips with no overt clinical s/s aspiration. Pt coughed immediately on 50% of trials of thin liquids via spoon and honey thick via spoon. Face turning red. Recommend continued NPO. Recommend oral care. Lap Winding Machine Operator Clinican/Clinical Fellow: No Supervisory Statement: I have reviewed and agree with the student/clinical fellow's documentation: No Speech Language Pathologist: Sofia Martínez M.A., CCC-BLINDMAKER
[2024-05-10] MEDS: hydrALAZINE HCl 20 MG/ML VIAL IVPUSH (17:48)
[2024-05-10 17:52] LABS: Glucose, Whole Blood 130 mg/dL (60-115)
[2024-05-10] MEDS: Parenteral Nutrition 1,440 ML 60 ML IV (20:40)
[2024-05-10 23:24] LABS: Glucose, Whole Blood 161 mg/dL (60-115)
[2024-05-11] VITALS (32 sets, daily range): BP systolic 126–177; BP diastolic 42–111; PULSE 72–136; RESP 14–25; TEMP 36.1–37.3; O2SAT 85–99; BMI 26.9
--- NOTE | 2024-05-11 00:05 | PC.NURSE ---
Neuro: patient alert and disoriented to place, time and situation, impulsive unable to redirect x2, Versed and Phenobarbital given as ordered for agitation, see MAR, tolerated well and good effect noted, Sitter at bedside? Resp: NC 5L increased to 6-7L for desat, O2 sat 91-96% currently? Cardiac:BP elevated this afternoon, PRN Hydralazine ordered and given with good effect. GI/: Speech in to see patient no diet recommended, not able to tolerate PO, External Purewick in place, voiding concentrated yellow urine..? 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 Psychosocial (family etc.):Sister came to see patient in PM Infectious Disease: MRSA in sputum on contact precautions? Report given to on coming RN at 2330
[2024-05-11] MEDS: PHENobarbitaL sodium 130 MG/ML VIAL IM ×3 (01:24→21:29)
[2024-05-11] MEDS: dexmedeTOMIDidine HCL/NS 400 MCG/100 ML INFUS..BTL 37.2 MCG IVCONT ×9 (02:02→23:07)
[2024-05-11] MEDS: Midazolam HCl 2 MG/2 ML VIAL 4 MG IVPUSH ×5 (03:09→20:17)
[2024-05-11] MEDS: hydrALAZINE HCl 20 MG/ML VIAL IVPUSH ×2 (03:46→21:37)
[2024-05-11 05:49] LABS: VBG Base Excess 7.3 mmol/L; VBG HCO3 31 mmol/L (22-26); VBG pCO2 40 mmHg; VBG pH 7.49 (7.32-7.43); VBG pO2 55 mmHg
[2024-05-11 05:54] LABS: MANUAL DIFF FLAG NO
[2024-05-11 05:58] LABS: Basophils Absolute Auto 0.1 X10*3/uL (0.0-0.2); Basophils Percent Auto 0.8 % (0-2); Eosinophils Absolute Auto 0.2 X10*3/uL (0.0-0.4); Eosinophils Percent Auto 2.2 % (0-4); Hematocrit 32.2 % (42.0-52.0); Hemoglobin 10.3 g/dl (14.0-18.0); Imm Gran Pct Auto 2.8 % (0.0-0.4); Lymphocytes Absolute Auto 1.3 X10*3/uL (1.2-4.9); Lymphocytes Percent Auto 17.5 % (20-40); Mean Corpuscular Hemoglobin 31.5 pg (27.0-33.0); Mean Corpuscular Volume 98.5 fL (80.0-98.0); Mean Platelet Volume 10.1 fL (9.4-12.4); Monocytes Absolute Auto 0.5 X10*3/uL (0.1-1.2); Monocytes Percent Auto 6.3 % (2-11); Neutrophils Absolute Auto 5.1 x10*3/uL (2.0-8.3); Neutrophils Percent Auto 70.4 % (45-73); Platelet Count 478 X10*3/uL (160-400); Red Blood Count 3.27 X10*6/uL (4.60-5.80); Red Cell Distribution Width 15.5 % (11.0-16.0); White Blood Count 7.2 X10*3/uL (4.8-10.8)
[2024-05-11 06:17] LABS: Albumin Level 3.1 g/dL (3.5-5.0); Anion Gap 12 (12-20); Blood Urea Nitrogen 5 mg/dL (9-16); Calcium 8.9 mg/dL (8.4-10.2); Carbon Dioxide 26 mmol/L (22-29); Chloride 106 mmol/L (96-108); Creatinine Clr Calc Pharmacy 112.5; Estimated Glomerular Filt Rate > 60; Glucose Random 169 mg/dL (60-115); Magnesium 1.6 mg/dL (1.6-2.6); Phosphorus 2.3 mg/dL (2.7-4.5); Potassium 3.5 mmol/L (3.3-5.1); Sodium 140 mmol/L (135-145); Triglycerides 528 mg/dL (<150)
[2024-05-11] MEDS: Levothyroxine Sodium 100 MCG/5 ML VIAL IVPUSH (06:31)
[2024-05-11] MEDS: Heparin Sodium,Porcine 5,000 UNIT/ML VIAL 5000 UNIT SUBCUT ×2 (06:31→14:12)
[2024-05-11] MEDS: Insulin Lispro 100 UNIT/ML 3 ML VIAL SUBCUT ×3 (06:32→17:40)
[2024-05-11 06:51] LABS: Venous Blood Gas Refer to POC result
--- NOTE | 2024-05-11 07:05 | PC.NURSE ---
Assumed care of this patient at 23:30. Pt continues on precedex gtt as well as requiring prn IM phenobarbital and prn IVP versed. Continues with in-room camera and 1:1 sitter to assist with very frequent redirecting for safety. Pt frequently pullling at lines including nc, spo2 and tele probe/leads, pulling off male PW. Breathing remains even and unlabored without distress. Handoff report given to oncoming RN. Please see shift assessment, tasks, and MAR for full details.
[2024-05-11] MEDS: Potassium Phosphate/NS 15 MMOL/250 ML PLAST..BAG 62.5 MMOL IV ×2 (07:55→11:57)
[2024-05-11] MEDS: 0.9 % Sodium Chloride Flush 3 ML SYRINGE IVFLUSH ×2 (07:55→16:16)
[2024-05-11] MEDS: Folic Acid 2 MG in 0.9 % Sodium Chloride 50 ML 100.8 MG IV (08:02)
[2024-05-11] MEDS: THIAMINE HCL IV (09:48)
[2024-05-11] MEDS: DEXTROSE 5% IV (09:48)
--- NOTE | 2024-05-11 09:50 | P.PNCC_ITS ---
Subjective Subjective Date of Service: 05/11/24 Interval History: 58-year-old gentleman with underlying alcohol dependence, obesity, diabetes mellitus being admitted for hyperglycemia and alcohol withdrawal on background of acute metabolic acidosis with acute renal failure and hyponatremia likely secondary to beer potomania. Required intubation on 04/30/2024 secondary to high sedative drip requirements for underlying delirium tremens. Extubated on 05/05, however remains with significant toxic encephalopathy requiring Precedex drip. No events overnight. Low improvement in encephalopathy, however still continues to require Precedex drip, continues to fail swallow evaluation. Critical Care Time (minutes): 0 Physical Exam 2 Vital Signs: Vital Signs: Last Vital Signs Temp 98.5 F 05/11/24 08:00 Pulse 99 05/11/24 09:00 Resp 20 05/11/24 09:00 BP 154/91 H 05/11/24 09:00 Pulse Ox 95 05/11/24 09:00 O2 Del Method Nasal Cannula 05/11/24 09:00 O2 Flow Rate 5 05/11/24 09:00 FiO2 40 05/05/24 09:38 BMI result Body Mass Index 26.9 Const: General: no acute distress and lethargic (Intermittently agitated) O rientation/consciousness: lethargic (Intermittently agitated) Eyes: Sclerae: sclerae normal EOM: EOMs intact bilaterally Neck: Neck: Yes no lymphadenopathy, Yes trachea midline and Yes supple Resp: Effort & Inspection: normal respiratory effort and no respiratory distress Auscultation: clear to auscultation bilaterally Cardio: Rate: regular rate Rhythm: regular rhythm Heart sounds: no gallops, no murmurs and no rubs GI: Palpation (GI): Soft to palpation and Other GI palpation findings present ( Nontender) Auscultation: normal bowel sounds Extrem: General: Yes no pedal edema, No clubbing and No cyanosis Objective Data Labs 05/11/24 05:42 05/11/24 05:42 Labs: Laboratory Results - last 24 hr 05/10/24 05/10/24 05/10/24 12:03 17:47 23:19 WBC RBC Hgb Hct MCV MCH MCHC RDW Plt Count MPV Immature Gran % (Auto) Neut % (Auto) Lymph % (Auto) [place] % (Auto) Eos % (Auto) Baso % (Auto) Lymph # (Auto) [place] # (Auto) Eos # (Auto) Baso # (Auto) Abs Immat Gran (auto) Absolute Neuts (auto) Absolute Nucleated RBC Nucleated RBC % (auto) VBG pH VBG pCO2 VBG pO2 VBG HCO3 VBG O2 Saturation VBG Base Excess Sodium Potassium Chloride Carbon Dioxide Anion Gap BUN Creatinine Estim Creat Clear Calc Estimated GFR POC Glucose 166 H 130 H 161 H Random Glucose Calcium Phosphorus Magnesium Albumin Triglycerides 05/11/24 05/11/24 05:42 05:45 WBC 7.2 RBC 3.27 L Hgb 10.3 L Hct 32.2 L MCV 98.5 H MCH 31.5 MCHC 32.0 RDW 15.5 Plt Count 478 H MPV 10.1 Immature Gran % (Auto) 2.8 H Neut % (Auto) 70.4 Lymph % (Auto) 17.5 L [place] % (Auto) 6.3 Eos % (Auto) 2.2 Baso % (Auto) 0.8 Lymph # (Auto) 1.3 [place] # (Auto) 0.5 Eos # (Auto) 0.2 Baso # (Auto) 0.1 Abs Immat Gran (auto) 0.20 H Absolute Neuts (auto) 5.1 Absolute Nucleated RBC 0.000 Nucleated RBC % (auto) 0.0 VBG pH 7.49 H VBG pCO2 40 VBG pO2 55 VBG HCO3 31 H VBG O2 Saturation 86.0 VBG Base Excess 7.3 Sodium 140 Potassium 3.5 Chloride 106 Carbon Dioxide 26 Anion Gap 12 BUN 5 L Creatinine 0.73 Estim Creat Clear Calc 112.5 Estimated GFR > 60 POC Glucose Random Glucose 169 H Calcium 8.9 Phosphorus 2.3 L Magnesium 1.6 Albumin 3.1 L Triglycerides 528 H Microbiology Microbiology Results: Microbiology 05/05/24 07:50 Tracheal Aspirate Gram Stain - Final 05/05/24 07:50 Tracheal Aspirate Sputum Culture - Final Methicillin Res Staph Aureus 04/29/24 10:33 Blood - Venous Blood Culture - Final No growth after 5 days. 04/29/24 10:33 Blood - Venous Blood Culture - Final No growth after 5 days. Progress Note: A&P Assessment and plan (1) Delirium tremens: Status: Acute (2) Acute respiratory failure with hypoxia: Status: Acute (3) Pulmonary aspiration: Status: Acute Plan Assessment: 58-year-old gentleman being admitted with alcohol withdrawal further complicated by acute hyponatremia likely secondary to beer potomania, acute renal failure with metabolic acidosis and hypoglycemia Plan: Neuro: Alcohol withdrawal, still with significant encephalopathy, continue to titrate off sedative drips as tolerated. Cardiac: No acute issues. Pulmonary: Required intubation for high-dose sedative drips and also hypoxia secondary to pulmonary aspiration. Extubated 05/05/2024. Continue to titrate off supplemental oxygen as tolerated. Renal: Hypernatremia, continue on D5. Endo: No acute issues. Underlying diabetes mellitus, continue sliding scale insulin. Underlying hypothyroidism, continue Synthroid. GI: No acute issues. ID: No acute issues Heme/Onc: No acute issues. Psych: No acute issues. Miscellaneous: No acute issues. Prophylaxis: Heparin Diet: PPN Quality Stroke Does the patient have a stroke diagnosis?: No VTE Prior VTE?: No VTE Risk Level:: Medical - moderate - high VTE Device Contraindication: Treatment Not Indicated VTE Drug Contraindication: N/A - Med Ordered
--- NOTE | 2024-05-11 09:57 | MHC.CLN ---
F/U PT TO REMAINS NPO PER SENIOR SOFTWARE SYSTEMS ENGINEER; FAILED REPEAT SWALLOW EVAL DISCUSSED AT ROUNDS WITH MD-PPN TO CONTINUE REVIEWED LABS DISCUSSED WITH PHARMACY RECOMMEND INCREASING PPN AT 80ML/HR TO PROVIDE 979KCALS, 192G DEXTROSE, 82G PROTEIN REPLETE LYTES NEEDED
--- NOTE | 2024-05-11 10:34 | MHC.SL.SWA ---
Speech Pathologist Impression: Moderate to significant dysphagia during bedside trials, pt does have hx of unconfirmed dysphagia (?CA) as reported to RN by pt sister Risk of Aspiration Due to: Reduced Cognition Dysphasia Diet Status: Pt tolerated ice chips with no overt clinical s/s aspiration. Pt coughed immediately on 50% of trials of thin liquids via spoon and honey thick via spoon. Face turning red. Recommend continued NPO. Recommend oral care. Liquid Consistency and Strategies for Safe Swallow: Liquid Intake Recommendation: NPO Liquid Intake Strategies: Solid Food Consistency: Dietary Recommendations: NPO Additional Modifications to Solid Foods: Recommend continue NPO status, provide oral care for hygiene and comfort, elevate HoB at least 30 degrees. Oral Medication Intake: NPO Please contact the pharmacy regarding appropriate crushable or liquid drug formulations that are available whenever modified delivery is recommended. Compensatory Strategies and Precautions to be Taken for Safe Swallow: Supervision While Eating and Drinking for Safe Swallow: PO with RN DOCUMENT IMPROVEMENT Foods to Avoid: Swallowing Recommended Treatments: Compens. Strategy Educat. Recommendation for Speech: Inpatient Speech Therapy Comment: Pt seen for dysphagia treatment, pt alert enough to situation, recalled trials of HTL. Press of speech persists, pt voice harsh but absent of vocal wetness. Pt tolerated ice chips initially, coughing upon third presentation. Pt tolerated 1/2 tsps of HTL initially, with cough occurring s/p third trial. Pt stated that he had enough today. Pt observed to be aware of difficulty in tolerating PO, RN consulted. RN noted pt sister reported 10 years ago pt had 'neck surgery for cancer' and subsequently experienced difficulty in swallowing for a decade. RN DOCUMENT IMPROVEMENT recc NPO strict, RN DOCUMENT IMPROVEMENT discussed history with MD. Question need for MBSS when appropriate, not to be ordered until pt deemed ready by RN DOCUMENT IMPROVEMENT. Frequency/Duration: Date Range for Service Req: Timeline to reassess: Director Emergency Clinican/Clinical Fellow: No Supervisory Statement: I have reviewed and agree with the student/clinical fellow's documentation: N/A Speech Language Pathologist: Vanessa Alexander M.S., CCC-RN DOCUMENT IMPROVEMENT
[2024-05-11 11:20] LABS: Glucose, Whole Blood 189 mg/dL (60-115)
--- NOTE | 2024-05-11 13:47 | MHC.CM.PN ---
Pt remains on dex: 1:1 sitter: confused, failed repeat swallow eval, no plans to transfer pt to medical floor at this time. Pt will be seen by CARE team for possible INPT ETOH tx. CM to follow
[2024-05-11 17:39] LABS: Glucose, Whole Blood 158 mg/dL (60-115)
--- NOTE | 2024-05-11 18:13 | PC.NURSE ---
Assumed care at 0700. Pt awake but speech nonsensical. Versed administered with increasing agitation and exit seeking; see MAR for details. Sitter in room for patient safety. Did not pass today's swallow eval. Pt became violent and threatening towards staff; security called multiple times. Additional doses of versed administered; again see MAR for details. Pt remains on precedex drip.
[2024-05-11] MEDS: Parenteral Nutrition 1,920 ML 80 ML IV (21:32)
[2024-05-11] MEDS: Midazolam HCl 2 MG/2 ML VIAL IVPUSH (22:04)
--- NOTE | 2024-05-11 22:39 | PM.EVENT ---
Documented by User: Salome Key NP 05/11/24 22:45 Event Note Date of Service: 05/11/24 Event Note: The pt's agitation increased despite administration of phenobarbital and midazolam. He made multiple attempts to climb out of bed, threatened staff and began screaming racial slurs. Attempts at redirection were unsuccessful. He began swinging his arms and kicking his legs nearly missing the faces of staff attempting to help him. Security was called for support. Both ankles and both wrists were restrained for both patient and staff safety. We will reassess and release restraints as soon as it is safe to do so. Time Spent With Patient Time: Total time managing care of this patient today ____ minutes. Documented by User: Pal Lord MD 05/12/24 12:30 Event Note Date of Service: 05/12/24
[2024-05-11] MEDS: OLANZapine 10 MG VIAL IM (23:10)
[2024-05-11 23:52] LABS: Glucose, Whole Blood 163 mg/dL (60-115)
[2024-05-12] VITALS (25 sets, daily range): BP systolic 90–180; BP diastolic 48–100; PULSE 72–133; RESP 13–25; TEMP 36.4–37.4; O2SAT 88–117; BMI 25.9
[2024-05-12] MEDS: Heparin Sodium,Porcine 5,000 UNIT/ML VIAL 5000 UNIT SUBCUT ×4 (00:11→23:47)
[2024-05-12] MEDS: Insulin Lispro 100 UNIT/ML 3 ML VIAL SUBCUT ×5 (00:11→23:47)
[2024-05-12] MEDS: 0.9 % Sodium Chloride Flush 3 ML SYRINGE IVFLUSH ×4 (00:12→23:47)
[2024-05-12] MEDS: Midazolam HCl 2 MG/2 ML VIAL 4 MG IVPUSH ×5 (00:30→19:11)
[2024-05-12] MEDS: dexmedeTOMIDidine HCL/NS 400 MCG/100 ML INFUS..BTL 37.2 MCG IVCONT ×9 (01:18→21:40)
[2024-05-12] MEDS: PHENobarbitaL sodium 130 MG/ML VIAL IM ×2 (02:06→21:54)
[2024-05-12] MEDS: OLANZapine 10 MG VIAL IM (02:35)
--- NOTE | 2024-05-12 02:39 | PM.EVENT ---
Documented by User: Salome Key NP 05/12/24 02:42 Event Note Date of Service: 05/12/24 Event Note: 05/11/2024 2330 Restraint assessment: Pt continues to threaten swear, and attempt to hit and kick staff. Order continued. Time Spent With Patient Time: Total time managing care of this patient today ____ minutes. Documented by User: Pal Lord MD 05/12/24 12:31 Event Note Date of Service: 05/12/24
--- NOTE | 2024-05-12 02:42 | PM.EVENT ---
Documented by User: Salome Key NP 05/12/24 02:44 Event Note Date of Service: 05/12/24 Event Note: 05/12/2024 0030 Restraint assessment: Pt has calmed down. Redirectable. Restraints removed. Time Spent With Patient Time: Total time managing care of this patient today ____ minutes. Documented by User: Pal Lord MD 05/12/24 12:31 Event Note Date of Service: 05/12/24
--- NOTE | 2024-05-12 02:44 | PM.EVENT ---
Event Note Event Note: Time Spent With Patient Time: Total time managing care of this patient today ____ minutes.
[2024-05-12] MEDS: Midazolam HCl 2 MG/2 ML VIAL IVPUSH (03:32)
[2024-05-12 05:44] LABS: VBG Base Excess 8.4 mmol/L; VBG HCO3 33 mmol/L (22-26); VBG pCO2 46 mmHg; VBG pH 7.46 (7.32-7.43); VBG pO2 46 mmHg
[2024-05-12 05:47] LABS: MANUAL DIFF FLAG NO
[2024-05-12 05:52] LABS: Glucose, Whole Blood 153 mg/dL (60-115)
[2024-05-12] MEDS: Levothyroxine Sodium 100 MCG/5 ML VIAL IVPUSH (06:01)
[2024-05-12 06:07] LABS: Albumin Level 3.4 g/dL (3.5-5.0); Anion Gap 12 (12-20); Blood Urea Nitrogen 6 mg/dL (9-16); Calcium 9.5 mg/dL (8.4-10.2); Carbon Dioxide 28 mmol/L (22-29); Chloride 107 mmol/L (96-108); Creatinine Clr Calc Pharmacy 112.5; Estimated Glomerular Filt Rate > 60; Glucose Random 159 mg/dL (60-115); Magnesium 1.6 mg/dL (1.6-2.6); Phosphorus 2.5 mg/dL (2.7-4.5); Potassium 3.9 mmol/L (3.3-5.1); Sodium 143 mmol/L (135-145); Triglycerides 626 mg/dL (<150)
[2024-05-12 06:09] LABS: Basophils Absolute Auto 0.1 X10*3/uL (0.0-0.2); Basophils Percent Auto 0.8 % (0-2); Eosinophils Absolute Auto 0.1 X10*3/uL (0.0-0.4); Eosinophils Percent Auto 1.6 % (0-4); Hematocrit 34.1 % (42.0-52.0); Hemoglobin 10.8 g/dl (14.0-18.0); Imm Gran Abs Auto 0.19 X10*3/uL (0.00-0.03); Imm Gran Pct Auto 2.1 % (0.0-0.4); Lymphocytes Absolute Auto 1.3 X10*3/uL (1.2-4.9); Lymphocytes Percent Auto 14.5 % (20-40); Mean Corpuscular HGB Conc 31.7 g/dl (31.0-36.0); Mean Corpuscular Hemoglobin 31.6 pg (27.0-33.0); Mean Corpuscular Volume 99.7 fL (80.0-98.0); Mean Platelet Volume 10.5 fL (9.4-12.4); Monocytes Absolute Auto 0.7 X10*3/uL (0.1-1.2); Neutrophils Absolute Auto 6.6 x10*3/uL (2.0-8.3); Platelet Count 574 X10*3/uL (160-400); Red Blood Count 3.42 X10*6/uL (4.60-5.80); Red Cell Distribution Width 15.6 % (11.0-16.0)
--- NOTE | 2024-05-12 06:39 | PC.NURSE ---
Assumed care 1899 - pt lethargic. Pt had episode?spO2 dropping to 70s, increased?to 6L oxymask, NT suctioned for large amounts of thick cream secretions. Levophed titrated off per APR.
[2024-05-12 06:41] LABS: Venous Blood Gas Refer to POC result
--- NOTE | 2024-05-12 06:42 | PC.NURSE ---
Assumed care 1900 - pt disoriented, alert to name only. On precedex for sedation, requiring PRN pheno and versed - see APR. Systolic BP > 160 - prn hydralazine?administered per APR. Around 2230 pt becoming agitated and aggressive, kicking?at staff, making threats to staff, and trying to get out of bed - restraints?applied for safety, see restraint flow sheet. Zyprexa ordered and administered - see APR. Around 0030 pt calm and cooperative - restraints removed. Around 0230 pt becoming agitated and aggressive?towards staff. Restraints applied for safety - see restraint flow sheet. Zyprexa ordered and administered - see APR.? Around 0630 pt calm and cooperative - restraints removed. 1:1 sitter at bedside for safety.
[2024-05-12] MEDS: Folic Acid 2 MG in 0.9 % Sodium Chloride 50 ML 100.4 MG IV (08:22)
[2024-05-12] MEDS: DEXTROSE 5% IV (08:40)
[2024-05-12] MEDS: THIAMINE HCL IV (08:40)
[2024-05-12] MEDS: hydrALAZINE HCl 20 MG/ML VIAL IVPUSH (10:16)
--- NOTE | 2024-05-12 11:03 | MHC.CLN ---
F/U DISCUSSED AT ROUNDS WITH MD-PPN TO CONTINUE PT NOTED TP BE VERY AGITATED TODAY REVIEWED LABS DISCUSSED WITH PHARMACY RECOMMEND INCREASING PPN TO 100ML/HR TO PROVIDE 1224KCALS, 240G DEXTROSE, 102G PROTEIN (1.4G/KG) HOLD LIPIDS R/T TRIGS 626 REPLETE LYTES NEEDED
[2024-05-12 11:18] LABS: Glucose, Whole Blood 212 mg/dL (60-115)
[2024-05-12] MEDS: lamoTRIgine 100 MG TABLET PO (12:05)
--- NOTE | 2024-05-12 12:31 | P.PNCC_ITS ---
Subjective Subjective Date of Service: 05/12/24 Interval History: 58-year-old gentleman with underlying alcohol dependence, obesity, diabetes mellitus being admitted for hyperglycemia and alcohol withdrawal on background of acute metabolic acidosis with acute renal failure and hyponatremia likely secondary to beer potomania. Required intubation on 04/30/2024 secondary to high sedative drip requirements for underlying delirium tremens. Extubated on 05/05, however remains with significant toxic encephalopathy requiring Precedex drip. No events overnight. Continues with bouts of agitation requiring high-dose sedatives. Critical Care Time (minutes): 0 Physical Exam 2 Vital Signs: Vital Signs: Last Vital Signs Temp 97.5 F 05/12/24 08:00 Pulse 118 H 05/12/24 12:00 Resp 19 05/12/24 12:00 BP 125/71 05/12/24 12:00 Pulse Ox 91 L 05/12/24 12:00 O2 Del Method Oxymask 05/12/24 12:00 O2 Flow Rate 4 05/12/24 12:00 FiO2 40 05/05/24 09:38 BMI result Body Mass Index 25.9 Const: General: no acute distress and lethargic (Intermittently agitated) O rientation/consciousness: lethargic (Intermittently agitated) Eyes: Sclerae: sclerae normal EOM: EOMs intact bilaterally Neck: Neck: Yes no lymphadenopathy, Yes trachea midline and Yes supple Resp: Effort & Inspection: normal respiratory effort and no respiratory distress Auscultation: clear to auscultation bilaterally Cardio: Rate: tachycardic Rhythm: regular rhythm Heart sounds: no gallops, no murmurs and no rubs GI: Palpation (GI): Soft to palpation and Other GI palpation findings present ( Nontender) Auscultation: normal bowel sounds Extrem: General: Yes no pedal edema, No clubbing and No cyanosis Objective Data Labs 05/12/24 05:39 05/12/24 05:39 Labs: Laboratory Results - last 24 hr 05/11/24 05/11/24 05/12/24 17:35 23:47 05:39 WBC 9.0 RBC 3.42 L Hgb 10.8 L Hct 34.1 L MCV 99.7 H MCH 31.6 MCHC 31.7 RDW 15.6 Plt Count 574 H MPV 10.5 Immature Gran % (Auto) 2.1 H Neut % (Auto) 73.0 Lymph % (Auto) 14.5 L [place] % (Auto) 8.0 Eos % (Auto) 1.6 Baso % (Auto) 0.8 Lymph # (Auto) 1.3 [place] # (Auto) 0.7 Eos # (Auto) 0.1 Baso # (Auto) 0.1 Abs Immat Gran (auto) 0.19 H Absolute Neuts (auto) 6.6 Absolute Nucleated RBC 0.000 Nucleated RBC % (auto) 0.0 VBG pH VBG pCO2 VBG pO2 VBG HCO3 VBG O2 Saturation VBG Base Excess Sodium 143 Potassium 3.9 Chloride 107 Carbon Dioxide 28 Anion Gap 12 BUN 6 L Creatinine 0.73 Estim Creat Clear Calc 112.5 Estimated GFR > 60 POC Glucose 158 H 163 H Random Glucose 159 H Calcium 9.5 D Phosphorus 2.5 L Magnesium 1.6 Albumin 3.4 L Triglycerides 626 H 05/12/24 05/12/24 05/12/24 05:41 05:49 11:03 WBC RBC Hgb Hct MCV MCH MCHC RDW Plt Count MPV Immature Gran % (Auto) Neut % (Auto) Lymph % (Auto) [place] % (Auto) Eos % (Auto) Baso % (Auto) Lymph # (Auto) [place] # (Auto) Eos # (Auto) Baso # (Auto) Abs Immat Gran (auto) Absolute Neuts (auto) Absolute Nucleated RBC Nucleated RBC % (auto) VBG pH 7.46 H VBG pCO2 46 VBG pO2 46 VBG HCO3 33 H VBG O2 Saturation 75.0 VBG Base Excess 8.4 Sodium Potassium Chloride Carbon Dioxide Anion Gap BUN Creatinine Estim Creat Clear Calc Estimated GFR POC Glucose 153 H 212 H Random Glucose Calcium Phosphorus Magnesium Albumin Triglycerides Microbiology Microbiology Results: Microbiology 05/05/24 07:50 Tracheal Aspirate Gram Stain - Final 05/05/24 07:50 Tracheal Aspirate Sputum Culture - Final Methicillin Res Staph Aureus 04/29/24 10:33 Blood - Venous Blood Culture - Final No growth after 5 days. 04/29/24 10:33 Blood - Venous Blood Culture - Final No growth after 5 days. Progress Note: A&P Assessment and plan (1) Delirium tremens: Status: Acute Plan Assessment: 58-year-old gentleman being admitted with alcohol withdrawal further complicated by acute hyponatremia likely secondary to beer potomania, acute renal failure with metabolic acidosis and hypoglycemia Plan: Neuro: Alcohol withdrawal, still with significant encephalopathy, continue to titrate off sedative drips as tolerated. Cardiac: No acute issues. Pulmonary: Required intubation for high-dose sedative drips and also hypoxia secondary to pulmonary aspiration. Extubated 05/05/2024. Continue to titrate off supplemental oxygen as tolerated. Renal: No acute issues. Endo: No acute issues. Underlying diabetes mellitus, continue sliding scale insulin. Underlying hypothyroidism, continue Synthroid. GI: No acute issues. ID: No acute issues Heme/Onc: No acute issues. Psych: No acute issues. Miscellaneous: No acute issues. Prophylaxis: Heparin Diet: PPN Quality Stroke Does the patient have a stroke diagnosis?: No VTE Prior VTE?: No VTE Risk Level:: Medical - moderate - high VTE Device Contraindication: Treatment Not Indicated VTE Drug Contraindication: N/A - Med Ordered
--- NOTE | 2024-05-12 14:30 | MHC.SLORD ---
Speech Language Pathology Order Status: Attempted to see patient, patient medically restrained today, not appropriate for po trials. INCOME TAX ADMINISTRATOR will continue to follow.
[2024-05-12] MEDS: Sertraline HCL 100 MG TABLET PO (14:44)
--- NOTE | 2024-05-12 17:29 | PC.NURSE ---
Assumed care at 0700. Pt resting. 6 liters o2 via oxymask. 1:1 sitter for patient and staff safety. Pt continues on precedex drip. Per MD, when awake patient can take medication PO. 1120 code assist called. Pt struck and kicked staff. Security at bedsisde assisting with application of 4-point restraints. Pt yelling, threatening violence, making racist statements, pulling at restraints. Periods of relative calm followed by increased agitation and threats. See MAR for medication administration details.
[2024-05-12 17:36] LABS: Glucose, Whole Blood 183 mg/dL (60-115)
[2024-05-12] MEDS: Parenteral Nutrition 2,400 ML 100 ML IV (21:42)
[2024-05-13] VITALS (38 sets, daily range): BP systolic 68–207; BP diastolic 38–104; PULSE 18–137; RESP 15–21; TEMP 29–38.2; O2SAT 92–98; BMI 25.9
[2024-05-13] MEDS: dexmedeTOMIDidine HCL/NS 400 MCG/100 ML INFUS..BTL 37.2 MCG IVCONT ×4 (00:12→09:02)
[2024-05-13 00:29] LABS: Glucose, Whole Blood 187 mg/dL (60-115)
[2024-05-13] MEDS: Midazolam HCl 2 MG/2 ML VIAL 4 MG IVPUSH ×3 (00:39→20:16)
[2024-05-13] MEDS: Albuterol Sulfate (0.083%) 2.5 MG/3 ML VIAL.NEB INHALE (01:30)
[2024-05-13] MEDS: PHENobarbitaL sodium 130 MG/ML VIAL IM (02:33)
[2024-05-13 05:35] LABS: Glucose, Whole Blood 183 mg/dL (60-115); VBG Base Excess 5.8 mmol/L; VBG HCO3 31 mmol/L (22-26); VBG pCO2 47 mmHg; VBG pH 7.42 (7.32-7.43); VBG pO2 78 mmHg
[2024-05-13 05:44] LABS: MANUAL DIFF FLAG NO
[2024-05-13 05:46] LABS: Basophils Absolute Auto 0.1 X10*3/uL (0.0-0.2); Basophils Percent Auto 0.7 % (0-2); Eosinophils Absolute Auto 0.2 X10*3/uL (0.0-0.4); Hematocrit 34.2 % (42.0-52.0); Hemoglobin 10.8 g/dl (14.0-18.0); Imm Gran Abs Auto 0.23 X10*3/uL (0.00-0.03); Imm Gran Pct Auto 2.4 % (0.0-0.4); Lymphocytes Absolute Auto 1.9 X10*3/uL (1.2-4.9); Mean Corpuscular HGB Conc 31.6 g/dl (31.0-36.0); Mean Corpuscular Hemoglobin 32.2 pg (27.0-33.0); Mean Corpuscular Volume 102.1 fL (80.0-98.0); Mean Platelet Volume 9.9 fL (9.4-12.4); Monocytes Percent Auto 9.9 % (2-11); Neutrophils Absolute Auto 6.2 x10*3/uL (2.0-8.3); Platelet Count 603 X10*3/uL (160-400); Red Blood Count 3.35 X10*6/uL (4.60-5.80); Red Cell Distribution Width 15.5 % (11.0-16.0); White Blood Count 9.6 X10*3/uL (4.8-10.8)
[2024-05-13 05:49] LABS: Venous Blood Gas Refer to POC result
[2024-05-13 06:06] LABS: Alanine Aminotransferase 14 U/L (0-40); Albumin Level 3.5 g/dL (3.5-5.0); Alkaline Phosphatase 151 U/L (39-117); Anion Gap 12 (12-20); Aspartate Amino Transferase 27 U/L (5-37); Bilirubin Total 0.5 mg/dL (0.0-1.0); Blood Urea Nitrogen 9 mg/dL (9-16); Calcium 9.7 mg/dL (8.4-10.2); Carbon Dioxide 29 mmol/L (22-29); Chloride 105 mmol/L (96-108); Creatinine Clr Calc Pharmacy 94.3; Estimated Glomerular Filt Rate > 60; Glucose Random 203 mg/dL (60-115); Magnesium 1.6 mg/dL (1.6-2.6); Phosphorus 3.8 mg/dL (2.7-4.5); Potassium 4.6 mmol/L (3.3-5.1); Sodium 141 mmol/L (135-145); Total Protein 6.5 g/dL (6.5-8.0)
[2024-05-13] MEDS: propofoL 1,000 MG/100 ML VIAL 24.6 MG IVCONT ×6 (06:20→22:07)
[2024-05-13] MEDS: propofoL 200 MG/20 ML VIAL 100 MG IVPUSH (06:20)
--- NOTE | 2024-05-13 06:28 | P.PCNCC_ITS ---
Procedures Date of Service Date of Service: 05/13/24 <Salome Key NP - Last Filed: 05/13/24 06:40> 05/13/24 <Pal Lord MD - Last Filed: 05/13/24 09:51> Intubation Intubation Comments: The patient was unresponsive and grossly hypoventilating. He was preoxygenated with BiPAP 100%. ? RSI was carried out with the meds below.? The glottis was not easily visualized d/t copious amounts thick secretions and a golfball sized food bolus.The 4 GlideScope was used and the trachea was intubated with a 7.5 ETT via?indirect video visualization, atraumatic.? BSBE, +CO2, SpO2 maintained.?The tube was secured at 25 cm at the upper lip. <Salome Key NP - Last Filed: 05/13/24 06:40> Consent for Procedure: Emergent-no informed consent obtained <Salome Key NP - Last Filed: 05/13/24 06:40> Time out performed: Yes <Salome Key NP - Last Filed: 05/13/24 06:40> Sedative: propofol <Salome Key NP - Last Filed: 05/13/24 06:40> Mg given: 100 <BRENDA Chavez Last Filed: 05/13/24 06:40> Laryngoscope: fiber optic video scope <Salome Key NP - Last Filed: 05/13/24 06:40> ET tube size: 7.5 <BRENDA Chavez Last Filed: 05/13/24 06:40> ET tube uncuffed: Yes <Salome Key NP - Last Filed: 05/13/24 06:40> Tube secured depth (cm): 25 <BRENDA Chavez Last Filed: 05/13/24 06:40> Tube secured location: lips <BRENDA Chavez Last Filed: 05/13/24 06:40> Tube placement confirmation: visualized tube passing through cords, equal breath sounds bilaterally, no breath sounds over epigastrium and confirmation by capnometry <BRENDA Chavez Last Filed: 05/13/24 06:40> Patient tolerated procedure: well and no complications <Salome Key, TURRET LATHE SET UP OPERATOR - Last Filed: 05/13/24 06:40>
[2024-05-13] MEDS: Levothyroxine Sodium 100 MCG/5 ML VIAL IVPUSH (06:29)
[2024-05-13] MEDS: Insulin Lispro 100 UNIT/ML 3 ML VIAL SUBCUT ×4 (06:29→23:31)
[2024-05-13] MEDS: Midazolam HCl/NS 50 MG/50 ML PLAST..BAG IVCONT ×2 (06:45→22:19)
[2024-05-13] MEDS: Midazolam HCl 2 MG/2 ML VIAL IVPUSH (06:45)
[2024-05-13] MEDS: Heparin Sodium,Porcine 5,000 UNIT/ML VIAL 5000 UNIT SUBCUT ×3 (07:47→22:07)
--- NOTE | 2024-05-13 07:52 | PC.NURSE ---
Assumed care 1900 - pt alert to name only, restless?and having episodes of agitation, kicking/grabbing staff. Soft limb restraints and 1:1 sitter maintained for safety. PRN versed and?pheno given per APR.? Around 0200 - pt with weak cough, having audible congestion and wheezing.? Albuterol ordered and administered. NT suctioned for moderate thick cream sections. Around 0530 PRN versed administered for agitation/withdrawal?symptoms, pt became unresponsive with spO2 dropping to 80s. Decision to intubate by BRENDA Key. Propofol 100 mg IVP given for RSI, propofol gtt started per APR. ETT #7.5, 25 cm?@ lip. On ACVC?settings - 16/440/5/100%. Large amount of food particles suctioned during intubation. OG tube placed. Cxr to confirm placement. RASS?+1, CORRECTIONS IDENTIFICATION TECHNICIAN notified. versed gtt ordered and administered, precedex restarted for additional sedation - see APR. Report given to oncoming RN.
[2024-05-13] MEDS: Norepinephrine Bitartrate/D5W 8 MG/250 ML PLAST..BAG 7.69 MG IVCONT (09:28)
[2024-05-13] MEDS: Folic Acid 2 MG in 0.9 % Sodium Chloride 50 ML 100.4 MG IV (09:40)
--- NOTE | 2024-05-13 09:51 | P.PNCC_ITS ---
Subjective Subjective Date of Service: 05/13/24 Interval History: 58-year-old gentleman with underlying alcohol dependence, obesity, diabetes mellitus being admitted for hyperglycemia and alcohol withdrawal on background of acute metabolic acidosis with acute renal failure and hyponatremia likely secondary to beer potomania. Required intubation on 04/30/2024 secondary to high sedative drip requirements for underlying delirium tremens. Extubated on 05/05, however remains with significant toxic encephalopathy requiring Precedex drip. Overnight with worsening agitation requiring high-dose sedatives and intubation for airway protection. Critical Care Time (minutes): 45 Physical Exam 2 Vital Signs: Vital Signs: Last Vital Signs Temp 99.4 F 05/13/24 09:00 Pulse 78 05/13/24 09:00 Resp 18 05/13/24 09:00 BP 91/47 L 05/13/24 09:00 Pulse Ox 96 05/13/24 09:00 O2 Del Method Mechanical Ventil ation 05/13/24 09:00 O2 Flow Rate 15 05/13/24 06:00 FiO2 70 05/13/24 09:00 BMI result Body Mass Index 25.9 Const: General: no acute distress and other (Sedated on ventilatory support) Eyes: Sclerae: sclerae normal EOM: EOMs intact bilaterally Neck: Neck: Yes no lymphadenopathy, Yes trachea midline and Yes supple Resp: Auscultation: crackles (Mild bibasilar) Cardio: Rate: regular rate Rhythm: regular rhythm Heart sounds: no gallops, no murmurs and no rubs GI: Palpation (GI): Soft to palpation and Other GI palpation findings present ( Nontender) Auscultation: normal bowel sounds Extrem: General: Yes no pedal edema, No clubbing and No cyanosis Objective Data Labs 05/13/24 05:34 05/13/24 05:34 Labs: Laboratory Results - last 24 hr 05/12/24 05/12/24 05/12/24 11:03 17:33 23:40 WBC RBC Hgb Hct MCV MCH MCHC RDW Plt Count MPV Immature Gran % (Auto) Neut % (Auto) Lymph % (Auto) [place] % (Auto) Eos % (Auto) Baso % (Auto) Lymph # (Auto) [place] # (Auto) Eos # (Auto) Baso # (Auto) Abs Immat Gran (auto) Absolute Neuts (auto) Absolute Nucleated RBC Nucleated RBC % (auto) VBG pH VBG pCO2 VBG pO2 VBG HCO3 VBG O2 Saturation VBG Base Excess Sodium Potassium Chloride Carbon Dioxide Anion Gap BUN Creatinine Estim Creat Clear Calc Estimated GFR POC Glucose 212 H 183 H 187 H Random Glucose Calcium Phosphorus Magnesium Total Bilirubin AST ALT Alkaline Phosphatase Total Protein Albumin 05/13/24 05/13/24 05:31 05:34 WBC 9.6 RBC 3.35 L Hgb 10.8 L Hct 34.2 L MCV 102.1 H MCH 32.2 MCHC 31.6 RDW 15.5 Plt Count 603 H MPV 9.9 Immature Gran % (Auto) 2.4 H Neut % (Auto) 65.0 Lymph % (Auto) 20.0 [place] % (Auto) 9.9 Eos % (Auto) 2.0 Baso % (Auto) 0.7 Lymph # (Auto) 1.9 [place] # (Auto) 1.0 Eos # (Auto) 0.2 Baso # (Auto) 0.1 Abs Immat Gran (auto) 0.23 H Absolute Neuts (auto) 6.2 Absolute Nucleated RBC 0.000 Nucleated RBC % (auto) 0.0 VBG pH 7.42 VBG pCO2 47 VBG pO2 78 VBG HCO3 31 H VBG O2 Saturation 95.0 VBG Base Excess 5.8 Sodium 141 Potassium 4.6 Chloride 105 Carbon Dioxide 29 Anion Gap 12 BUN 9 Creatinine 0.87 Estim Creat Clear Calc 94.3 Estimated GFR > 60 POC Glucose 183 H Random Glucose 203 H Calcium 9.7 Phosphorus 3.8 Magnesium 1.6 Total Bilirubin 0.5 AST 27 ALT 14 Alkaline Phosphatase 151 H Total Protein 6.5 Albumin 3.5 Microbiology Microbiology Results: Microbiology 05/05/24 07:50 Tracheal Aspirate Gram Stain - Final 05/05/24 07:50 Tracheal Aspirate Sputum Culture - Final Methicillin Res Staph Aureus 04/29/24 10:33 Blood - Venous Blood Culture - Final No growth after 5 days. 04/29/24 10:33 Blood - Venous Blood Culture - Final No growth after 5 days. Progress Note: A&P Assessment and plan (1) Delirium tremens: Status: Acute Plan Assessment: 58-year-old gentleman being admitted with alcohol withdrawal further complicated by acute hyponatremia likely secondary to beer potomania, acute renal failure with metabolic acidosis and hypoglycemia Plan: Neuro: Alcohol withdrawal, still with significant encephalopathy, continue to titrate off sedative drips as tolerated. Cardiac: No acute issues. Pulmonary: Initially required intubation for high-dose sedative drips and also hypoxia secondary to pulmonary aspiration. Extubated 05/05/2024. Required re- intubation overnight, continue to titrate off as tolerated Renal: No acute issues. Endo: No acute issues. Underlying diabetes mellitus, continue sliding scale insulin. Underlying hypothyroidism, continue Synthroid. GI: No acute issues. ID: No acute issues Heme/Onc: No acute issues. Psych: No acute issues. Miscellaneous: No acute issues. Prophylaxis: Heparin, famotidine Diet: Tube feeds Critical care time: 45 minutes Quality Stroke Does the patient have a stroke diagnosis?: No VTE Prior VTE?: No VTE Risk Level:: Medical - moderate - high VTE Device Contraindication: Treatment Not Indicated VTE Drug Contraindication: N/A - Med Ordered
[2024-05-13] MEDS: Sertraline HCL 100 MG TABLET PO (09:54)
[2024-05-13] MEDS: DEXTROSE 5% IV (09:54)
[2024-05-13] MEDS: lamoTRIgine 100 MG TABLET PO ×2 (09:54→20:37)
[2024-05-13] MEDS: THIAMINE HCL IV (09:54)
[2024-05-13 11:21] LABS: Glucose, Whole Blood 163 mg/dL (60-115)
--- NOTE | 2024-05-13 11:29 | MHC.CLN ---
F/U PT RE-INTUBATED AND SEDATED DISCUSSED AT ROUNDS WITH MD PLAN TO RE-START TF AND D/C PPN RECOMMEND GLUCERNA AT MAX GOAL RATE 60ML/KG WITH 240 ML FREE WATER FLUSHES Q 6 HRS TO PROVIDE 1440KCLAS (2089 TOTAL KCALS WITH SEDATION; 28KCALS/KG BASED ON IBW), 60G PROTEIN (.8G/KG), 2188ML TOTAL FREE WATER FROM FORMULA AND FLUSHES (29ML/KG) MONITOR TOLERANCE AND LYTES SEE ALSO FULL CLINICAL NUTRITION ASSESSMENT
[2024-05-13] MEDS: dexmedeTOMIDidine HCL/NS 400 MCG/100 ML INFUS..BTL 32.24 MCG IVCONT (12:06)
--- NOTE | 2024-05-13 12:52 | PC.NURSE ---
Addendum entered by Aden Wilson RN 05/13/24 19:08: stable, sedated, mechanically vented... handed off at 1900. Addendum entered by Aden Wilson RN 05/13/24 12:57: at approximately 0920 patient became hypotensive... MD aware started on Levophed and titrated per APR... patient also sustains low grade fever throughout morning. Original Note: assumed care 0700 on 05/13/24. patient mechanically vented and sedated. patient was intubated at approximately 0600 (see event note)... patient sedation running per APR... patient synchronous with vent... weening oxygen as tolerated... no awakening or PSV trial today due to recent intubation... a
--- NOTE | 2024-05-13 12:56 | MHC.SLORD ---
Speech Language Pathology Order Status: Patient is intubated and sedated- CLOCK AND WATCH HANDS MOUNTER consult deferred pending extubation.
--- NOTE | 2024-05-13 13:36 | MHC.CM.PN ---
Pt required reintubation for airway protection secondary to increase in meds for agitation: Pt will continue on vent support for 48 or so additional hours and begin weaning off sedation in anticipation of extubation. Pt may need formal competency/cognitive eval once medically stable to better assess for d/c needs.
[2024-05-13] MEDS: Chlorhexidine Gluc Oral Rinse 15 ML MOUTHWASH BUCCAL ×2 (14:03→20:19)
[2024-05-13] MEDS: 0.9 % Sodium Chloride Flush 3 ML SYRINGE IVFLUSH ×2 (15:10→23:31)
[2024-05-13] MEDS: dexmedeTOMIDidine HCL/NS 400 MCG/100 ML INFUS..BTL 22.32 MCG IVCONT (15:31)
[2024-05-13 17:51] LABS: Glucose, Whole Blood 168 mg/dL (60-115)
[2024-05-13] MEDS: dexmedeTOMIDidine HCL/NS 400 MCG/100 ML INFUS..BTL 17.36 MCG IVCONT (20:52)
[2024-05-13 23:27] LABS: Glucose, Whole Blood 161 mg/dL (60-115)
[2024-05-14] VITALS (44 sets, daily range): BP systolic 70–182; BP diastolic 25–111; PULSE 60–94; RESP 17–23; TEMP 34.8–37.3; O2SAT 90–95; BMI 25.9
[2024-05-14] MEDS: propofoL 1,000 MG/100 ML VIAL 24.6 MG IVCONT ×7 (00:45→23:53)
--- NOTE | 2024-05-14 01:47 | HO.SKINPHOTO ---
Bilateral knees abrasions Location: Left plantar aspect Category: ?ulcer Right lateral ankle abrasion Right Great Toe ?ulcer
[2024-05-14] MEDS: dexmedeTOMIDidine HCL/NS 400 MCG/100 ML INFUS..BTL 17.36 MCG IVCONT ×2 (01:56→05:54)
[2024-05-14] MEDS: Midazolam HCl 2 MG/2 ML VIAL 4 MG IVPUSH ×2 (04:59→14:03)
[2024-05-14 05:05] LABS: VBG Base Excess 6.2 mmol/L; VBG HCO3 28 mmol/L (22-26); VBG pCO2 35 mmHg; VBG pH 7.52 (7.32-7.43); VBG pO2 38 mmHg
[2024-05-14 05:06] LABS: Venous Blood Gas Refer to POC result
[2024-05-14 05:08] LABS: MANUAL DIFF FLAG NO
[2024-05-14 05:09] LABS: Basophils Absolute Auto 0.1 X10*3/uL (0.0-0.2); Basophils Percent Auto 1.2 % (0-2); Eosinophils Absolute Auto 0.3 X10*3/uL (0.0-0.4); Eosinophils Percent Auto 3.1 % (0-4); Hematocrit 33.2 % (42.0-52.0); Hemoglobin 10.8 g/dl (14.0-18.0); Imm Gran Abs Auto 0.23 X10*3/uL (0.00-0.03); Imm Gran Pct Auto 2.5 % (0.0-0.4); Lymphocytes Absolute Auto 1.5 X10*3/uL (1.2-4.9); Lymphocytes Percent Auto 16.4 % (20-40); Mean Corpuscular HGB Conc 32.5 g/dl (31.0-36.0); Mean Corpuscular Hemoglobin 32.1 pg (27.0-33.0); Mean Corpuscular Volume 98.8 fL (80.0-98.0); Monocytes Absolute Auto 0.7 X10*3/uL (0.1-1.2); Monocytes Percent Auto 7.8 % (2-11); Neutrophils Absolute Auto 6.4 x10*3/uL (2.0-8.3); Platelet Count 709 X10*3/uL (160-400); Red Blood Count 3.36 X10*6/uL (4.60-5.80); Red Cell Distribution Width 16.1 % (11.0-16.0); White Blood Count 9.3 X10*3/uL (4.8-10.8)
[2024-05-14 05:22] LABS: Alanine Aminotransferase 22 U/L (0-40); Albumin Level 3.3 g/dL (3.5-5.0); Alkaline Phosphatase 157 U/L (39-117); Anion Gap 12 (12-20); Aspartate Amino Transferase 41 U/L (5-37); Bilirubin Total 0.5 mg/dL (0.0-1.0); Blood Urea Nitrogen 12 mg/dL (9-16); Calcium 9.3 mg/dL (8.4-10.2); Carbon Dioxide 24 mmol/L (22-29); Chloride 105 mmol/L (96-108); Creatinine Clr Calc Pharmacy 89.2; Estimated Glomerular Filt Rate > 60; Glucose Random 168 mg/dL (60-115); Magnesium 1.5 mg/dL (1.6-2.6); Phosphorus 3.2 mg/dL (2.7-4.5); Potassium 4.3 mmol/L (3.3-5.1); Sodium 137 mmol/L (135-145); Total Protein 6.6 g/dL (6.5-8.0)
[2024-05-14] MEDS: Insulin Lispro 100 UNIT/ML 3 ML VIAL SUBCUT ×4 (05:56→23:41)
[2024-05-14] MEDS: Levothyroxine Sodium 100 MCG/5 ML VIAL IVPUSH (05:57)
[2024-05-14] MEDS: Heparin Sodium,Porcine 5,000 UNIT/ML VIAL 5000 UNIT SUBCUT ×3 (05:57→23:05)
[2024-05-14] MEDS: Magnesium Sulfate/D5W 1 GM/100 ML PIGGYBACK IV (06:11)
[2024-05-14] MEDS: 0.9 % Sodium Chloride Flush 3 ML SYRINGE IVFLUSH ×2 (08:12→16:09)
[2024-05-14] MEDS: Folic Acid 2 MG in 0.9 % Sodium Chloride 50 ML 100.4 MG IV (09:05)
[2024-05-14] MEDS: Famotidine/PF 20 MG/2 ML VIAL IVPUSH (09:22)
[2024-05-14] MEDS: Sertraline HCL 100 MG TABLET PO (09:22)
[2024-05-14] MEDS: lamoTRIgine 100 MG TABLET PO ×2 (09:22→20:51)
[2024-05-14] MEDS: Chlorhexidine Gluc Oral Rinse 15 ML MOUTHWASH BUCCAL ×3 (09:22→20:51)
[2024-05-14] MEDS: THIAMINE HCL IV (09:40)
[2024-05-14] MEDS: DEXTROSE 5% IV (09:40)
[2024-05-14] MEDS: dexmedeTOMIDidine HCL/NS 400 MCG/100 ML INFUS..BTL 22.32 MCG IVCONT ×2 (10:16→14:50)
--- NOTE | 2024-05-14 11:22 | P.PNCC_ITS ---
Subjective Subjective Date of Service: 05/14/24 Interval History: 58-year-old gentleman with underlying alcohol dependence, obesity, diabetes mellitus being admitted for hyperglycemia and alcohol withdrawal on background of acute metabolic acidosis with acute renal failure and hyponatremia likely secondary to beer potomania. Required intubation on 04/30/2024 secondary to high sedative drip requirements for underlying delirium tremens. Extubated on 05/05, however remains with significant toxic encephalopathy requiring Precedex drip. Reintubated on 05/13 secondary to high sedative requirements. No events overnight. Critical Care Time (minutes): 45 Physical Exam 2 Vital Signs: Vital Signs: Last Vital Signs Temp 98.1 F 05/14/24 08:00 Pulse 66 05/14/24 08:00 Resp 18 05/14/24 08:00 BP 148/93 H 05/14/24 08:00 Pulse Ox 95 05/14/24 08:00 O2 Del Method Mechanical Ventil ation 05/14/24 08:00 O2 Flow Rate 15 05/13/24 06:00 FiO2 40 05/14/24 08:00 BMI result Body Mass Index 25.9 Const: General: no acute distress and other (Sedated on vent support) Eyes: Sclerae: sclerae normal EOM: EOMs intact bilaterally Neck: Neck: Yes no lymphadenopathy, Yes trachea midline and Yes supple Resp: Auscultation: crackles (Mild bilateral) Cardio: Rate: regular rate Rhythm: regular rhythm Heart sounds: no gallops, no murmurs and no rubs GI: Palpation (GI): Soft to palpation and Other GI palpation findings present ( Nontender) Auscultation: normal bowel sounds Extrem: General: Yes no pedal edema, No clubbing and No cyanosis Objective Data Labs 05/14/24 04:59 05/14/24 04:59 Labs: Laboratory Results - last 24 hr 05/13/24 05/13/24 05/13/24 11:18 17:47 23:23 WBC RBC Hgb Hct MCV MCH MCHC RDW Plt Count MPV Immature Gran % (Auto) Neut % (Auto) Lymph % (Auto) [place] % (Auto) Eos % (Auto) Baso % (Auto) Lymph # (Auto) [place] # (Auto) Eos # (Auto) Baso # (Auto) Abs Immat Gran (auto) Absolute Neuts (auto) Absolute Nucleated RBC Nucleated RBC % (auto) VBG pH VBG pCO2 VBG pO2 VBG HCO3 VBG O2 Saturation VBG Base Excess Sodium Potassium Chloride Carbon Dioxide Anion Gap BUN Creatinine Estim Creat Clear Calc Estimated GFR POC Glucose 163 H 168 H 161 H Random Glucose Calcium Phosphorus Magnesium Total Bilirubin AST ALT Alkaline Phosphatase Total Protein Albumin 05/14/24 05/14/24 04:59 05:01 WBC 9.3 RBC 3.36 L Hgb 10.8 L Hct 33.2 L MCV 98.8 H MCH 32.1 MCHC 32.5 RDW 16.1 H Plt Count 709 H MPV 10.0 Immature Gran % (Auto) 2.5 H Neut % (Auto) 69.0 Lymph % (Auto) 16.4 L [place] % (Auto) 7.8 Eos % (Auto) 3.1 Baso % (Auto) 1.2 Lymph # (Auto) 1.5 [place] # (Auto) 0.7 Eos # (Auto) 0.3 Baso # (Auto) 0.1 Abs Immat Gran (auto) 0.23 H Absolute Neuts (auto) 6.4 Absolute Nucleated RBC 0.000 Nucleated RBC % (auto) 0.0 VBG pH 7.52 H VBG pCO2 35 VBG pO2 38 VBG HCO3 28 H VBG O2 Saturation 62.0 VBG Base Excess 6.2 Sodium 137 Potassium 4.3 Chloride 105 Carbon Dioxide 24 Anion Gap 12 BUN 12 Creatinine 0.92 Estim Creat Clear Calc 89.2 Estimated GFR > 60 POC Glucose Random Glucose 168 H Calcium 9.3 Phosphorus 3.2 Magnesium 1.5 L Total Bilirubin 0.5 AST 41 H ALT 22 Alkaline Phosphatase 157 H Total Protein 6.6 Albumin 3.3 L Microbiology Microbiology Results: Microbiology 05/05/24 07:50 Tracheal Aspirate Gram Stain - Final 05/05/24 07:50 Tracheal Aspirate Sputum Culture - Final Methicillin Res Staph Aureus 04/29/24 10:33 Blood - Venous Blood Culture - Final No growth after 5 days. 04/29/24 10:33 Blood - Venous Blood Culture - Final No growth after 5 days. Progress Note: A&P Assessment and plan (1) Delirium tremens: Status: Acute (2) Pulmonary aspiration: Status: Acute Plan Assessment: 58-year-old gentleman being admitted with alcohol withdrawal further complicated by acute hyponatremia likely secondary to beer potomania, acute renal failure with metabolic acidosis and hypoglycemia Plan: Neuro: Alcohol withdrawal, still with significant encephalopathy, continue to titrate off sedative drips as tolerated. Cardiac: No acute issues. Pulmonary: Initially required intubation for high-dose sedative drips and also hypoxia secondary to pulmonary aspiration. Extubated 05/05/2024. Required re- intubation on 05/13/2024 secondary to high sedative treatment requirements, continue to titrate off as tolerated Renal: No acute issues. Endo: No acute issues. Underlying diabetes mellitus, continue sliding scale insulin. Underlying hypothyroidism, continue Synthroid. GI: No acute issues. ID: No acute issues Heme/Onc: No acute issues. Psych: No acute issues. Miscellaneous: No acute issues. Prophylaxis: Heparin, famotidine Diet: Tube feeds Critical care time: 45 minutes Quality Stroke Does the patient have a stroke diagnosis?: No VTE Prior VTE?: No VTE Risk Level:: Medical - moderate - high VTE Device Contraindication: Treatment Not Indicated VTE Drug Contraindication: N/A - Med Ordered
[2024-05-14 12:24] LABS: Glucose, Whole Blood 205 mg/dL (60-115)
[2024-05-14] MEDS: Norepinephrine Bitartrate/D5W 8 MG/250 ML PLAST..BAG 7.69 MG IVCONT (15:33)
[2024-05-14] MEDS: PHENobarbitaL sodium 130 MG/ML VIAL IM (15:46)
[2024-05-14 17:26] LABS: Glucose, Whole Blood 179 mg/dL (60-115)
[2024-05-14] MEDS: propofoL 200 MG/20 ML VIAL 50 MG IVPUSH ×3 (17:33→18:31)
[2024-05-14] MEDS: dexmedeTOMIDidine HCL/NS 400 MCG/100 ML INFUS..BTL 37.2 MCG IVCONT ×3 (17:36→22:04)
[2024-05-14] MEDS: Midazolam HCl/NS 50 MG/50 ML PLAST..BAG IVCONT (20:51)
[2024-05-14 23:40] LABS: Glucose, Whole Blood 187 mg/dL (60-115)
[2024-05-15] VITALS (46 sets, daily range): BP systolic 75–158; BP diastolic 39–101; PULSE 61–130; RESP 18–30; TEMP 34.6–38.5; O2SAT 87–993; BMI 26.9
[2024-05-15] MEDS: dexmedeTOMIDidine HCL/NS 400 MCG/100 ML INFUS..BTL 37.2 MCG IVCONT ×9 (00:52→22:23)
[2024-05-15] MEDS: propofoL 1,000 MG/100 ML VIAL 24.6 MG IVCONT ×7 (03:15→23:53)
--- NOTE | 2024-05-15 04:00 | HE.NUR.EV ---
Status Change: Pt with increasing FiO2 requirements to maintain SpO2 > 92%. Immediate Actions Taken: HOB increased > 30 degrees, in-line suctioned, repositioned in bed, SpO2 probe changed, sedated to RASS -3 Notifications: RT, LEAVE SPECIALIST Shahid Further Monitoring and Treatment: Saline lavaged by RT with no effect. LS CTAB, synchronous with vent. Current SpO2 93% on 70%/+7.5 via ventilator. RT/LEAVE SPECIALIST aware of pt status.
[2024-05-15 04:54] LABS: VBG Base Excess 4.2 mmol/L; VBG HCO3 26 mmol/L (22-26); VBG pCO2 30 mmHg; VBG pH 7.53 (7.32-7.43); VBG pO2 58 mmHg
[2024-05-15 04:56] LABS: MANUAL DIFF FLAG NO
[2024-05-15 04:57] LABS: Basophils Absolute Auto 0.1 X10*3/uL (0.0-0.2); Eosinophils Absolute Auto 0.2 X10*3/uL (0.0-0.4); Eosinophils Percent Auto 2.1 % (0-4); Hematocrit 29.5 % (42.0-52.0); Hemoglobin 10.2 g/dl (14.0-18.0); Imm Gran Abs Auto 0.17 X10*3/uL (0.00-0.03); Imm Gran Pct Auto 2.1 % (0.0-0.4); Lymphocytes Absolute Auto 1.2 X10*3/uL (1.2-4.9); Lymphocytes Percent Auto 14.5 % (20-40); Mean Corpuscular HGB Conc 34.6 g/dl (31.0-36.0); Mean Corpuscular Hemoglobin 33.2 pg (27.0-33.0); Mean Corpuscular Volume 96.1 fL (80.0-98.0); Monocytes Absolute Auto 0.5 X10*3/uL (0.1-1.2); Neutrophils Absolute Auto 6.1 x10*3/uL (2.0-8.3); Neutrophils Percent Auto 74.3 % (45-73); Platelet Count 665 X10*3/uL (160-400); Red Blood Count 3.07 X10*6/uL (4.60-5.80); Red Cell Distribution Width 15.9 % (11.0-16.0); White Blood Count 8.2 X10*3/uL (4.8-10.8)
[2024-05-15 05:15] LABS: Anion Gap 14 (12-20); Blood Urea Nitrogen 10 mg/dL (9-16); Calcium 8.9 mg/dL (8.4-10.2); Carbon Dioxide 23 mmol/L (22-29); Chloride 104 mmol/L (96-108); Creatinine Clr Calc Pharmacy 92.2; Estimated Glomerular Filt Rate > 60; Glucose Random 196 mg/dL (60-115); Magnesium 1.6 mg/dL (1.6-2.6); Phosphorus 3.7 mg/dL (2.7-4.5); Sodium 137 mmol/L (135-145)
--- NOTE | 2024-05-15 05:24 | HE.NUR.EV ---
Status Change: Pt with increasing FiO2 requirements to maintain SpO2 > 92%. Immediate Actions Taken: HOB increased > 30 degrees, in-line suctioned, repositioned in bed, SpO2 probe changed, sedated to RASS -3 Notifications: RT, HADOOP JAVA DEVELOPER Shahid Further Monitoring and Treatment: Saline lavaged by RT with minimal effect. LS CTAB, synchronous with vent. Current SpO2 92% on +7.5/70% PEEP/FiO2 via ventilator. RT/HADOOP JAVA DEVELOPER aware of pt status.
[2024-05-15] MEDS: Midazolam HCl 2 MG/2 ML VIAL 4 MG IVPUSH ×4 (05:36→17:21)
[2024-05-15] MEDS: Levothyroxine Sodium 100 MCG/5 ML VIAL IVPUSH (05:37)
[2024-05-15] MEDS: Insulin Lispro 100 UNIT/ML 3 ML VIAL SUBCUT ×4 (05:37→23:53)
[2024-05-15 06:42] LABS: Venous Blood Gas Refer to POC result
[2024-05-15] MEDS: PHENobarbitaL sodium 130 MG/ML VIAL IM (08:30)
[2024-05-15] MEDS: Albumin Human 25 % 50 ML 100 ML IV (08:36)
[2024-05-15] MEDS: DEXTROSE 5% IV (08:36)
[2024-05-15] MEDS: THIAMINE HCL IV (08:36)
[2024-05-15] MEDS: 0.9 % Sodium Chloride Flush 3 ML SYRINGE IVFLUSH ×3 (08:37→23:54)
[2024-05-15] MEDS: Folic Acid 2 MG in 0.9 % Sodium Chloride 50 ML 100.4 MG IV (08:37)
[2024-05-15] MEDS: Chlorhexidine Gluc Oral Rinse 15 ML MOUTHWASH BUCCAL ×3 (08:38→19:50)
[2024-05-15] MEDS: Heparin Sodium,Porcine 5,000 UNIT/ML VIAL 5000 UNIT SUBCUT ×3 (08:38→23:53)
[2024-05-15] MEDS: Famotidine/PF 20 MG/2 ML VIAL IVPUSH (08:39)
[2024-05-15] MEDS: Sertraline HCL 100 MG TABLET PO (08:39)
[2024-05-15] MEDS: lamoTRIgine 100 MG TABLET PO ×2 (08:39→19:50)
--- NOTE | 2024-05-15 09:40 | P.PNCC_ITS ---
Subjective Subjective Date of Service: 05/15/24 Interval History: 58-year-old gentleman with underlying alcohol dependence, obesity, diabetes mellitus being admitted for hyperglycemia and alcohol withdrawal on background of acute metabolic acidosis with acute renal failure and hyponatremia likely secondary to beer potomania. Required intubation on 04/30/2024 secondary to high sedative drip requirements for underlying delirium tremens. Extubated on 05/05, however remains with significant toxic encephalopathy requiring Precedex drip. Reintubated on 05/13 secondary to high sedative requirements. No events overnight. Critical Care Time (minutes): 45 Physical Exam 2 Vital Signs: Vital Signs: Last Vital Signs Temp 101.3 F H 05/15/24 09:00 Pulse 109 H 05/15/24 09:06 Resp 26 H 05/15/24 09:00 BP 153/96 H 05/15/24 09:06 Pulse Ox 94 05/15/24 09:00 O2 Del Method Mechanical Ventil ation 05/15/24 09:00 O2 Flow Rate 15 05/13/24 06:00 FiO2 70 05/15/24 09:00 BMI result Body Mass Index 26.9 Const: General: no acute distress and other (Sedated on ventilatory support, intermittent breakthrough agitation) Eyes: Sclerae: sclerae normal EOM: EOMs intact bilaterally Neck: Neck: Yes no lymphadenopathy, Yes trachea midline and Yes supple Resp: Auscultation: crackles Cardio: Rate: tachycardic Rhythm: regular rhythm Heart sounds: no gallops, no murmurs and no rubs GI: Palpation (GI): Soft to palpation and Other GI palpation findings present ( Nontender) Auscultation: normal bowel sounds Extrem: General: Yes no pedal edema, No clubbing and No cyanosis Objective Data Labs 05/15/24 04:48 05/15/24 04:48 Labs: Laboratory Results - last 24 hr 05/14/24 05/14/24 05/14/24 12:20 17:23 23:36 WBC RBC Hgb Hct MCV MCH MCHC RDW Plt Count MPV Immature Gran % (Auto) Neut % (Auto) Lymph % (Auto) [place] % (Auto) Eos % (Auto) Baso % (Auto) Lymph # (Auto) [place] # (Auto) Eos # (Auto) Baso # (Auto) Abs Immat Gran (auto) Absolute Neuts (auto) Absolute Nucleated RBC Nucleated RBC % (auto) VBG pH VBG pCO2 VBG pO2 VBG HCO3 VBG O2 Saturation VBG Base Excess Sodium Potassium Chloride Carbon Dioxide Anion Gap BUN Creatinine Estim Creat Clear Calc Estimated GFR POC Glucose 205 H 179 H 187 H Random Glucose Calcium Phosphorus Magnesium Albumin 05/15/24 05/15/24 04:48 04:50 WBC 8.2 RBC 3.07 L Hgb 10.2 L Hct 29.5 L MCV 96.1 MCH 33.2 H MCHC 34.6 RDW 15.9 Plt Count 665 H MPV 10.0 Immature Gran % (Auto) 2.1 H Neut % (Auto) 74.3 H Lymph % (Auto) 14.5 L [place] % (Auto) 6.0 Eos % (Auto) 2.1 Baso % (Auto) 1.0 Lymph # (Auto) 1.2 [place] # (Auto) 0.5 Eos # (Auto) 0.2 Baso # (Auto) 0.1 Abs Immat Gran (auto) 0.17 H Absolute Neuts (auto) 6.1 Absolute Nucleated RBC 0.000 Nucleated RBC % (auto) 0.0 VBG pH 7.53 H VBG pCO2 30 VBG pO2 58 VBG HCO3 26 VBG O2 Saturation 87.0 VBG Base Excess 4.2 Sodium 137 Potassium 4.0 Chloride 104 Carbon Dioxide 23 Anion Gap 14 BUN 10 Creatinine 0.89 Estim Creat Clear Calc 92.2 Estimated GFR > 60 POC Glucose Random Glucose 196 H Calcium 8.9 Phosphorus 3.7 Magnesium 1.6 Albumin 3.0 L Microbiology Microbiology Results: Microbiology 05/05/24 07:50 Tracheal Aspirate Gram Stain - Final 05/05/24 07:50 Tracheal Aspirate Sputum Culture - Final Methicillin Res Staph Aureus 04/29/24 10:33 Blood - Venous Blood Culture - Final No growth after 5 days. 04/29/24 10:33 Blood - Venous Blood Culture - Final No growth after 5 days. Progress Note: A&P Assessment and plan (1) Delirium tremens: Status: Acute (2) Pulmonary aspiration: Status: Acute (3) Acute respiratory failure with hypoxia: Status: Acute Plan Assessment: 58-year-old gentleman being admitted with alcohol withdrawal further complicated by acute hyponatremia likely secondary to beer potomania, acute renal failure with metabolic acidosis and hypoglycemia Plan: Neuro: Alcohol withdrawal, still with significant encephalopathy, continue to titrate off sedative drips as tolerated. Cardiac: No acute issues. Pulmonary: Initially required intubation for high-dose sedative drips and also hypoxia secondary to pulmonary aspiration. Extubated 05/05/2024. Required re- intubation on 05/13/2024 secondary to high sedative treatment requirements, continue to titrate off as tolerated. Aspirated past the ET tube cuff. Renal: No acute issues. Endo: No acute issues. Underlying diabetes mellitus, continue sliding scale insulin. Underlying hypothyroidism, continue Synthroid. GI: No acute issues. ID: Empiric antibiotic coverage for pulmonary aspiration Heme/Onc: No acute issues. Psych: No acute issues. Miscellaneous: No acute issues. Prophylaxis: Heparin, famotidine Diet: Tube feeds Critical care time: 45 minutes Quality Stroke Does the patient have a stroke diagnosis?: No VTE Prior VTE?: No VTE Risk Level:: Medical - moderate - high VTE Device Contraindication: Treatment Not Indicated VTE Drug Contraindication: N/A - Med Ordered
[2024-05-15] MEDS: Cisatracurium Besylate 20 MG/10 ML VIAL IVPUSH (09:51)
[2024-05-15] MEDS: Albumin Human 25 % 50 ML IV (09:53)
[2024-05-15] MEDS: Ampicillin Sodium/Sulbactam Na 3 GM in 0.9 % Sodium Chloride 100 ML IV ×3 (10:43→21:09)
[2024-05-15 11:28] LABS: Glucose, Whole Blood 159 mg/dL (60-115)
[2024-05-15] MEDS: Midazolam HCl/NS 50 MG/50 ML PLAST..BAG IVCONT (17:42)
[2024-05-15 18:01] LABS: Glucose, Whole Blood 184 mg/dL (60-115)
--- NOTE | 2024-05-15 19:27 | PC.NURSE ---
Neuro: patient opens eyes and attempts to get out of bed, impulsive, agitated and attempting to kick staff unable to redirect, Versed and Phenobarbital given as ordered for agitation, see TERE, not being effective, MD made aware and Nimbex PRN ordered and given with desire effect, patient resting comfortably.? Resp: vented on 70% FIO2, asynchrony with agitation? Cardiac: on Levophed, titrated off, but Map low and restarted as per APR, ST to SR. GI/: Glucerna at 60ml/hr, no flushes ordered per MD Integumentary/Musculoskeletal: Abrasions to knees bilaterally and right great toe, Knees healing well, old diabetic ulcer to left plantar INSPECTOR AND CLIPPER, skin tear to right ankle xeroform and pink foam, coccyx pink blanchable.? Psychosocial (family etc.):Sister came to see patient in PM Infectious Disease: MRSA in sputum on contact precautions? Report given to on coming RN at 2330
[2024-05-15 23:53] LABS: Glucose, Whole Blood 200 mg/dL (60-115)
[2024-05-16] VITALS (46 sets, daily range): BP systolic 69–214; BP diastolic 39–122; PULSE 60–113; RESP 18–28; TEMP 34.8–38.5; O2SAT 88–97; BMI 29.0
[2024-05-16] MEDS: Midazolam HCl 2 MG/2 ML VIAL 4 MG IVPUSH ×4 (00:22→16:31)
[2024-05-16] MEDS: dexmedeTOMIDidine HCL/NS 400 MCG/100 ML INFUS..BTL 37.2 MCG IVCONT ×9 (00:42→21:42)
[2024-05-16] MEDS: Ampicillin Sodium/Sulbactam Na 3 GM in 0.9 % Sodium Chloride 100 ML IV ×4 (03:13→21:37)
[2024-05-16] MEDS: propofoL 1,000 MG/100 ML VIAL 24.6 MG IVCONT ×6 (03:47→21:38)
[2024-05-16 05:15] LABS: Glucose, Whole Blood 205 mg/dL (60-115)
[2024-05-16] MEDS: Levothyroxine Sodium 100 MCG/5 ML VIAL IVPUSH (05:38)
[2024-05-16] MEDS: Insulin Lispro 100 UNIT/ML 3 ML VIAL SUBCUT ×3 (05:39→17:53)
[2024-05-16 05:40] LABS: VBG Base Excess 5.1 mmol/L; VBG HCO3 26 mmol/L (22-26); VBG pCO2 28 mmHg; VBG pH 7.57 (7.32-7.43); VBG pO2 62 mmHg
[2024-05-16 05:41] LABS: MANUAL DIFF FLAG NO
[2024-05-16 05:42] LABS: Venous Blood Gas Refer to POC result
[2024-05-16 05:43] LABS: Basophils Absolute Auto 0.1 X10*3/uL (0.0-0.2); Basophils Percent Auto 0.8 % (0-2); Eosinophils Absolute Auto 0.2 X10*3/uL (0.0-0.4); Eosinophils Percent Auto 1.5 % (0-4); Hematocrit 28.9 % (42.0-52.0); Hemoglobin 9.6 g/dl (14.0-18.0); Imm Gran Abs Auto 0.19 X10*3/uL (0.00-0.03); Imm Gran Pct Auto 1.5 % (0.0-0.4); Lymphocytes Absolute Auto 1.3 X10*3/uL (1.2-4.9); Mean Corpuscular HGB Conc 33.2 g/dl (31.0-36.0); Mean Corpuscular Hemoglobin 32.7 pg (27.0-33.0); Mean Corpuscular Volume 98.3 fL (80.0-98.0); Mean Platelet Volume 10.3 fL (9.4-12.4); Monocytes Absolute Auto 0.9 X10*3/uL (0.1-1.2); Monocytes Percent Auto 6.8 % (2-11); Neutrophils Absolute Auto 10.4 x10*3/uL (2.0-8.3); Neutrophils Percent Auto 79.4 % (45-73); Platelet Count 636 X10*3/uL (160-400); Red Blood Count 2.94 X10*6/uL (4.60-5.80); Red Cell Distribution Width 16.1 % (11.0-16.0)
[2024-05-16 05:58] LABS: Alanine Aminotransferase 15 U/L (0-40); Albumin Level 3.1 g/dL (3.5-5.0); Alkaline Phosphatase 147 U/L (39-117); Anion Gap 13 (12-20); Aspartate Amino Transferase 20 U/L (5-37); Bilirubin Total 0.4 mg/dL (0.0-1.0); Blood Urea Nitrogen 8 mg/dL (9-16); Calcium 8.7 mg/dL (8.4-10.2); Carbon Dioxide 22 mmol/L (22-29); Chloride 106 mmol/L (96-108); Creatinine Clr Calc Pharmacy 97.3; Estimated Glomerular Filt Rate > 60; Glucose Random 219 mg/dL (60-115); Magnesium 1.6 mg/dL (1.6-2.6); Sodium 137 mmol/L (135-145); Total Protein 6.3 g/dL (6.5-8.0)
--- NOTE | 2024-05-16 06:14 | PC.NURSE ---
Assumed care 1900 - pt intubated? and sedated. RASS -3 on propofol, precedex, and versed - see MAR for titrations. Remains on ACVC settings - see vent assessment. Levophed titrated per APR.
[2024-05-16] MEDS: propofoL 200 MG/20 ML VIAL 50 MG IVPUSH ×4 (07:53→15:54)
[2024-05-16] MEDS: 0.9 % Sodium Chloride Flush 3 ML SYRINGE IVFLUSH ×3 (08:00→23:08)
[2024-05-16] MEDS: Heparin Sodium,Porcine 5,000 UNIT/ML VIAL 5000 UNIT SUBCUT ×2 (08:01→15:34)
[2024-05-16] MEDS: Famotidine/PF 20 MG/2 ML VIAL IVPUSH (08:01)
[2024-05-16] MEDS: DEXTROSE 5% IV (08:32)
[2024-05-16] MEDS: THIAMINE HCL IV (08:32)
[2024-05-16] MEDS: Sertraline HCL 100 MG TABLET PO (09:04)
[2024-05-16] MEDS: lamoTRIgine 100 MG TABLET PO ×2 (09:04→19:59)
[2024-05-16] MEDS: Cisatracurium Besylate 20 MG/10 ML VIAL IVPUSH (09:28)
[2024-05-16] MEDS: Chlorhexidine Gluc Oral Rinse 15 ML MOUTHWASH BUCCAL ×3 (09:46→19:58)
[2024-05-16] MEDS: Folic Acid 2 MG in 0.9 % Sodium Chloride 50 ML 100.4 MG IV (09:46)
--- NOTE | 2024-05-16 10:08 | P.PNCC_ITS ---
Subjective Subjective Date of Service: 05/16/24 Interval History: 58-year-old gentleman with underlying alcohol dependence, obesity, diabetes mellitus being admitted for hyperglycemia and alcohol withdrawal on background of acute metabolic acidosis with acute renal failure and hyponatremia likely secondary to beer potomania. Required intubation on 04/30/2024 secondary to high sedative drip requirements for underlying delirium tremens. Extubated on 05/05, however remains with significant toxic encephalopathy requiring Precedex drip. Reintubated on 05/13 secondary to high sedative requirements. No events overnight. FiO2 requirements remain high. Still with breakthrough agitation despite high-dose sedative drips. Critical Care Time (minutes): 45 Physical Exam 2 Vital Signs: Vital Signs: Last Vital Signs Temp 101.3 F H 05/16/24 09:00 Pulse 113 H 05/16/24 10:07 Resp 25 H 05/16/24 09:00 BP 176/119 H 05/16/24 10:07 Pulse Ox 93 05/16/24 09:00 O2 Del Method Mechanical Ventil ation 05/16/24 09:00 O2 Flow Rate 15 05/13/24 06:00 FiO2 65 05/16/24 09:00 BMI result Body Mass Index 29.0 Const: General: no acute distress and other (Sedated on ventilatory support) Eyes: Sclerae: sclerae normal EOM: EOMs intact bilaterally Neck: Neck: Yes no lymphadenopathy, Yes trachea midline and Yes supple Resp: Effort & Inspection: normal respiratory effort and no respiratory distress Auscultation: clear to auscultation bilaterally Cardio: Rate: tachycardic Rhythm: regular rhythm Heart sounds: no gallops, no murmurs and no rubs GI: Palpation (GI): Soft to palpation and Other GI palpation findings present ( Nontender) Auscultation: normal bowel sounds Extrem: General: Yes no pedal edema, No clubbing and No cyanosis Objective Data Labs 05/16/24 05:34 05/16/24 05:34 Labs: Laboratory Results - last 24 hr 05/15/24 05/15/24 05/15/24 11:23 17:57 23:49 WBC RBC Hgb Hct MCV MCH MCHC RDW Plt Count MPV Immature Gran % (Auto) Neut % (Auto) Lymph % (Auto) [place] % (Auto) Eos % (Auto) Baso % (Auto) Lymph # (Auto) [place] # (Auto) Eos # (Auto) Baso # (Auto) Abs Immat Gran (auto) Absolute Neuts (auto) Absolute Nucleated RBC Nucleated RBC % (auto) VBG pH VBG pCO2 VBG pO2 VBG HCO3 VBG O2 Saturation VBG Base Excess Sodium Potassium Chloride Carbon Dioxide Anion Gap BUN Creatinine Estim Creat Clear Calc Estimated GFR POC Glucose 159 H 184 H 200 H Random Glucose Calcium Phosphorus Magnesium Total Bilirubin AST ALT Alkaline Phosphatase Total Protein Albumin 05/16/24 05/16/24 05/16/24 05:08 05:34 05:36 WBC 13.0 H RBC 2.94 L Hgb 9.6 L Hct 28.9 L MCV 98.3 H MCH 32.7 MCHC 33.2 RDW 16.1 H Plt Count 636 H MPV 10.3 Immature Gran % (Auto) 1.5 H Neut % (Auto) 79.4 H Lymph % (Auto) 10.0 L [place] % (Auto) 6.8 Eos % (Auto) 1.5 Baso % (Auto) 0.8 Lymph # (Auto) 1.3 [place] # (Auto) 0.9 Eos # (Auto) 0.2 Baso # (Auto) 0.1 Abs Immat Gran (auto) 0.19 H Absolute Neuts (auto) 10.4 H Absolute Nucleated RBC 0.000 Nucleated RBC % (auto) 0.0 VBG pH 7.57 H VBG pCO2 28 VBG pO2 62 VBG HCO3 26 VBG O2 Saturation 92.0 VBG Base Excess 5.1 Sodium 137 Potassium 4.0 Chloride 106 Carbon Dioxide 22 Anion Gap 13 BUN 8 L Creatinine 0.93 Estim Creat Clear Calc 97.3 Estimated GFR > 60 POC Glucose 205 H Random Glucose 219 H Calcium 8.7 Phosphorus 4.0 Magnesium 1.6 Total Bilirubin 0.4 AST 20 ALT 15 Alkaline Phosphatase 147 H Total Protein 6.3 L Albumin 3.1 L Microbiology Microbiology Results: Microbiology 05/05/24 07:50 Tracheal Aspirate Gram Stain - Final 05/05/24 07:50 Tracheal Aspirate Sputum Culture - Final Methicillin Res Staph Aureus 04/29/24 10:33 Blood - Venous Blood Culture - Final No growth after 5 days. 04/29/24 10:33 Blood - Venous Blood Culture - Final No growth after 5 days. Progress Note: A&P Assessment and plan (1) Delirium tremens: Status: Acute (2) Acute respiratory failure with hypoxia: Status: Acute (3) Pulmonary aspiration: Status: Acute Plan Assessment: 58-year-old gentleman being admitted with alcohol withdrawal further complicated by acute hyponatremia likely secondary to beer potomania, acute renal failure with metabolic acidosis and hypoglycemia Plan: Neuro: Alcohol withdrawal, still with significant encephalopathy, continue to titrate off sedative drips as tolerated. Cardiac: No acute issues. Pulmonary: Initially required intubation for high-dose sedative drips and also hypoxia secondary to pulmonary aspiration. Extubated 05/05/2024. Required re- intubation on 05/13/2024 secondary to high sedative treatment requirements, continue to titrate off as tolerated. Aspirated past the ET tube cuff. Sputum growing MRSA. Renal: No acute issues. Endo: No acute issues. Underlying diabetes mellitus, continue sliding scale insulin. Underlying hypothyroidism, continue Synthroid. GI: No acute issues. ID: Sputum with MRSA, vancomycin added. Heme/Onc: No acute issues. Psych: No acute issues. Miscellaneous: No acute issues. Prophylaxis: Heparin, famotidine Diet: Tube feeds Critical care time: 45 minutes Quality Stroke Does the patient have a stroke diagnosis?: No VTE Prior VTE?: No VTE Risk Level:: Medical - moderate - high VTE Device Contraindication: Treatment Not Indicated VTE Drug Contraindication: N/A - Med Ordered
[2024-05-16] MEDS: vancomycin/NS 2,000 MG/500 ML PLAST..BAG 250 MG IV (10:47)
--- NOTE | 2024-05-16 10:58 | PHA.PROG ---
Admission Date/Time: April 29, 2024 14:24 Indication: Resp Weight in k.6 kg Adjusted body weight in Kg: [place] body weight in Kg: Obesity Dosing Indication % IBW: Serum Creatinine - Last 168 Hours 05/10/24 05/11/24 05/12/24 05:14 05:42 05:39 Creatinine 0.80 0.73 0.73 05/13/24 05/14/24 05/15/24 05:34 04:59 04:48 Creatinine 0.87 0.92 0.89 05/16/24 05:34 Creatinine 0.93 Estimated CrCl and GFR - Last 168 Hours 05/10/24 05/11/24 05/12/24 05:14 05:42 05:39 Estim Creat Clear Calc 102.6 112.5 112.5 Estimated GFR > 60 > 60 > 60 05/13/24 05/14/24 05/15/24 05:34 04:59 04:48 Estim Creat Clear Calc 94.3 89.2 92.2 Estimated GFR > 60 > 60 > 60 05/16/24 05:34 Estim Creat Clear Calc 97.3 Estimated GFR > 60 Vancomycin Loading Dose: 2000mg Current Vancomycin Dosing Regimen: 1000mg q12h Vancomycin Monitoring using AUC goal of 400 - 600 range with trough as surrogate marker: 471mg/L Date and Time for next Vancomycin Level to be drawn: 05/17/24 @2100 Pharmacist Comments on Vancomycin Plan: Vancomycin dosing will take advantage of [employer] as a clinical decision support tool that uses Bayesian modeling to calculate individual patient's pharmacokinetic parameters and forecast the patient's drug concentration time course with the target goal AUC 24 range of 400 - 600 mg/L/hr.
[2024-05-16 11:14] LABS: Glucose, Whole Blood 186 mg/dL (60-115)
--- NOTE | 2024-05-16 11:21 | MHC.CLN ---
Addendum entered by Marnie Miles, FABIOLA 05/16/24 11:24: WATER FLUSHES CURRENTLY HELD PER CORRECTED 1228ML FREE WATER FROM FORMULA Original Note: F/U PT REMAINS INTUBATED AND SEDATED DISCUSSED AT ROUNDS WITH ARJEEV ON HOLD THIS AM D/T AGITATION RECEIVING GLUCERNA AT MAX GOAL RATE 60ML/KG WITH 240 ML FREE WATER FLUSHES Q 6 HRS PROVIDE 1440KCALS (2089 TOTAL KCALS WITH SEDATION; 28KCALS/KG BASED ON IBW), 60G PROTEIN (.8G/KG), 2188ML TOTAL FREE WATER FROM FORMULA AND FLUSHES (29ML/KG) CONTINUE TO MONITOR TOLERANCE AND LYTES
--- NOTE | 2024-05-16 14:24 | MHC.CM.PN ---
Pt continues on ventilatory and pressor support in the setting of ETOH w/d and difficult to manage agitated behaviors. Pt's d/c needs will need to be re-assessed once he is medically stable. Pt may need placement of some kind. CM to follow
[2024-05-16] MEDS: Norepinephrine Bitartrate/D5W 8 MG/250 ML PLAST..BAG 7.69 MG IVCONT (16:52)
--- NOTE | 2024-05-16 17:03 | HO.WOUND ---
Wound Consult: Initial 58yr old?[place] [facility] [place] See progress notes and H&P for detailed history.? Wound consult placed for Bilateral Knees, Right Ankle. Left plantar foot and right great toe.? Patient is intubated at this time.? Bilateral Knees are noted to resurfaced intact pink tissue - no open wounds noted- skin prep applied to protect from friction at this time. No topical recommendations needed at this time. Right Ankle - Abrasion - resolving - small area of scab remains - recommend continue with foam dressing in place to allow for continued healing. Right Great toe - Abrasion ntoed when dressing removed- scab lifting and removed with cleaning revealing intact tissue - no open wound noted at this time - skin prep applied - no topical interventions needed at this time. Left Plantar foot - assessed for dark stable lesions - suspect this is actually a plantar wart despite brown color this appears to be a plantar wart - dry stable - no topical interventions needed at this time. Recommend outpt follow up with dermatology for plantar wart treatment. No topical wound care needed at this time. Recommendations: 1. Turn and Reposition every 2 hours and as needed for patient comfort.? Use pillows or wedges to support off loading positions. 2. Off Load all bony prominences with use of pillows and heel boots if needed.? Apply Preventative foams where needed. ? 3. Monitor for incontinence and moisture control, use barrier creams when needed for prevention and treatment. 4. Provide adequate and supplemental nutrition.? 5. Continue low air loss mattress. Re-consult wound care Nurse for wound deterioration or wound changes.
[2024-05-16 17:40] LABS: Glucose, Whole Blood 186 mg/dL (60-115)
[2024-05-16] MEDS: Midazolam HCl/NS 50 MG/50 ML PLAST..BAG IVCONT (17:50)
--- NOTE | 2024-05-16 18:25 | PC.NURSE ---
Assumed care of patient 0700. Pt mechanically vented, see vent assessment. FiO2 65%, PEEP 7.5 on ACVC+. Pt on continous sedation IV with Propofol gtt @50mcg/kg/min, Versed gtt @2mg/hr, and Precedex gtt @1.5mcg/kg/hr. Pt eyes open to name, attempting to remove ETT, moving legs continuously and sliding down in bed, RASS 2+. PRN Propofol 50 mg IVP given twice for agitation. Pt able to reach ETT and pulling with hand despite non-behavioral soft wrist restraints as ordered. New [employer] camera and 1:1 sitter implemented. ETT migrated from 24@ lip to 19@lip. MD notified, new orders for CXR. Per MD, RT adjusted ETT to 24@lip. Pt attempting to kick staff. Per 50 mg propofol IVP and PRN Nimbex 20mg IVP given for vent syncrony and agitation in order to get CXR. See MAR. CXR obtained and confirmed ETT and OG Tube placement. Vanco 2G IV (new order) and Unasyn 3G IV given for aspiration pneumonia. Pt requiring Levophed gtt at times for MAP<65. Pt titrated off twice this shift, Gtt restarted for low MAP and running at 0.03. Pt provided bath at 15:45. Family visited at bedside 18:00-18:20. Plan of care discussed with sister Rachel. Rachel states she will be out of town for travel and temporary point person will be Hetal (sister), number included in chart. High fall precautions in place, 1:[address] for safety and pulling of medical lines.
[2024-05-16] MEDS: QUEtiapine Fumarate 100 MG TABLET PO (19:58)
[2024-05-16] MEDS: vancomycin HCL 1,000 MG in 0.9 % Sodium Chloride 250 ML 270 MG IV (23:04)
[2024-05-17] VITALS (39 sets, daily range): BP systolic 81–168; BP diastolic 43–96; PULSE 61–83; RESP 18–31; TEMP 34.1–37.7; O2SAT 88–94; BMI 28.0
[2024-05-17] MEDS: Insulin Lispro 100 UNIT/ML 3 ML VIAL SUBCUT ×4 (00:12→18:01)
[2024-05-17 00:13] LABS: Glucose, Whole Blood 191 mg/dL (60-115)
[2024-05-17] MEDS: Heparin Sodium,Porcine 5,000 UNIT/ML VIAL 5000 UNIT SUBCUT ×3 (00:13→15:36)
[2024-05-17] MEDS: dexmedeTOMIDidine HCL/NS 400 MCG/100 ML INFUS..BTL 37.2 MCG IVCONT ×10 (00:21→22:45)
[2024-05-17] MEDS: propofoL 1,000 MG/100 ML VIAL 24.6 MG IVCONT ×7 (00:22→22:33)
[2024-05-17] MEDS: Ampicillin Sodium/Sulbactam Na 3 GM in 0.9 % Sodium Chloride 100 ML IV ×4 (03:29→21:10)
[2024-05-17 05:52] LABS: Glucose, Whole Blood 208 mg/dL (60-115)
[2024-05-17 05:54] LABS: VBG Base Excess 3.3 mmol/L; VBG HCO3 25 mmol/L (22-26); VBG pCO2 29 mmHg; VBG pH 7.53 (7.32-7.43); VBG pO2 60 mmHg
[2024-05-17] MEDS: Levothyroxine Sodium 100 MCG/5 ML VIAL IVPUSH (05:57)
[2024-05-17 05:59] LABS: Venous Blood Gas Refer to POC result
[2024-05-17 06:06] LABS: MANUAL DIFF FLAG NO
[2024-05-17 06:18] LABS: Basophils Absolute Auto 0.1 X10*3/uL (0.0-0.2); Basophils Percent Auto 0.8 % (0-2); Eosinophils Absolute Auto 0.3 X10*3/uL (0.0-0.4); Eosinophils Percent Auto 2.5 % (0-4); Hematocrit 28.3 % (42.0-52.0); Hemoglobin 9.2 g/dl (14.0-18.0); Imm Gran Abs Auto 0.26 X10*3/uL (0.00-0.03); Imm Gran Pct Auto 2.5 % (0.0-0.4); Lymphocytes Absolute Auto 1.1 X10*3/uL (1.2-4.9); Lymphocytes Percent Auto 10.4 % (20-40); Mean Corpuscular HGB Conc 32.5 g/dl (31.0-36.0); Mean Corpuscular Hemoglobin 32.1 pg (27.0-33.0); Mean Corpuscular Volume 98.6 fL (80.0-98.0); Mean Platelet Volume 10.4 fL (9.4-12.4); Monocytes Absolute Auto 0.8 X10*3/uL (0.1-1.2); Monocytes Percent Auto 8.1 % (2-11); Neutrophils Absolute Auto 7.8 x10*3/uL (2.0-8.3); Neutrophils Percent Auto 75.7 % (45-73); Platelet Count 624 X10*3/uL (160-400); Red Blood Count 2.87 X10*6/uL (4.60-5.80); Red Cell Distribution Width 15.9 % (11.0-16.0); White Blood Count 10.3 X10*3/uL (4.8-10.8)
[2024-05-17 06:28] LABS: Albumin Level 2.9 g/dL (3.5-5.0); Anion Gap 13 (12-20); Blood Urea Nitrogen 9 mg/dL (9-16); Calcium 8.8 mg/dL (8.4-10.2); Carbon Dioxide 22 mmol/L (22-29); Chloride 106 mmol/L (96-108); Creatinine Clr Calc Pharmacy 107.2; Estimated Glomerular Filt Rate > 60; Glucose Random 213 mg/dL (60-115); Magnesium 1.6 mg/dL (1.6-2.6); Potassium 4.2 mmol/L (3.3-5.1); Sodium 137 mmol/L (135-145)
[2024-05-17] MEDS: Midazolam HCl 2 MG/2 ML VIAL 4 MG IVPUSH ×4 (07:02→23:52)
[2024-05-17] MEDS: 0.9 % Sodium Chloride Flush 3 ML SYRINGE IVFLUSH ×2 (07:08→15:34)
[2024-05-17] MEDS: Albumin Human 25 % 100 ML IV ×3 (07:09→20:12)
[2024-05-17] MEDS: THIAMINE HCL IV (07:25)
[2024-05-17] MEDS: DEXTROSE 5% IV (07:25)
[2024-05-17] MEDS: Chlorhexidine Gluc Oral Rinse 15 ML MOUTHWASH BUCCAL ×3 (07:26→20:12)
[2024-05-17] MEDS: Famotidine/PF 20 MG/2 ML VIAL IVPUSH (07:26)
[2024-05-17] MEDS: lamoTRIgine 100 MG TABLET PO (07:36)
[2024-05-17] MEDS: propofoL 200 MG/20 ML VIAL 50 MG IVPUSH ×4 (07:56→13:24)
--- NOTE | 2024-05-17 09:46 | PM.CCPN ---
Subjective Subjective Date of Service: 05/17/24 Interval History: 58-year-old gentleman with underlying alcohol dependence, obesity, diabetes mellitus being admitted for hyperglycemia and alcohol withdrawal on background of acute metabolic acidosis with acute renal failure and hyponatremia likely secondary to beer potomania. Required intubation on 04/30/2024 secondary to high sedative drip requirements for underlying delirium tremens. Extubated on 05/05, however remains with significant toxic encephalopathy requiring Precedex drip. Reintubated on 05/13 secondary to high sedative requirements. No events overnight. FiO2 requirements slowly improving. Still with breakthrough agitation despite high-dose sedative drips, though improving slowly. Critical Care Time (minutes): 45 Physical Exam Vital Signs: Vital Signs: Last Vital Signs Temp 99.5 F 05/17/24 09:00 Pulse 69 05/17/24 09:00 Resp 20 05/17/24 09:00 BP 150/92 H 05/17/24 09:00 Pulse Ox 91 L 05/17/24 09:00 O2 Del Method Mechanical Ventil ation 05/17/24 09:00 O2 Flow Rate 15 05/13/24 06:00 FiO2 65 05/17/24 09:00 BMI result Body Mass Index 28.0 Const: General: no acute distress and other (Sedated on ventilatory support) Eyes: Sclerae: sclerae normal EOM: EOMs intact bilaterally Neck: Neck: Yes no lymphadenopathy, Yes trachea midline and Yes supple Resp: Auscultation: crackles (Mild bilateral) Cardio: Rate: regular rate Rhythm: regular rhythm Heart sounds: no gallops, no murmurs and no rubs GI: Palpation (GI): Soft to palpation and Other GI palpation findings present ( Nontender) Auscultation: normal bowel sounds Extrem: General: Yes no pedal edema, No clubbing and No cyanosis Objective Data Labs 05/17/24 05:49 05/17/24 05:49 Labs: Laboratory Results - last 24 hr 05/16/24 05/16/24 05/17/24 11:11 17:37 00:08 WBC RBC Hgb Hct MCV MCH MCHC RDW Plt Count MPV Immature Gran % (Auto) Neut % (Auto) Lymph % (Auto) [place] % (Auto) Eos % (Auto) Baso % (Auto) Lymph # (Auto) [place] # (Auto) Eos # (Auto) Baso # (Auto) Abs Immat Gran (auto) Absolute Neuts (auto) Absolute Nucleated RBC Nucleated RBC % (auto) VBG pH VBG pCO2 VBG pO2 VBG HCO3 VBG O2 Saturation VBG Base Excess Sodium Potassium Chloride Carbon Dioxide Anion Gap BUN Creatinine Estim Creat Clear Calc Estimated GFR POC Glucose 186 H 186 H 191 H Random Glucose Calcium Phosphorus Magnesium Albumin 05/17/24 05/17/24 05/17/24 05:47 05:49 05:50 WBC 10.3 RBC 2.87 L Hgb 9.2 L Hct 28.3 L MCV 98.6 H MCH 32.1 MCHC 32.5 RDW 15.9 Plt Count 624 H MPV 10.4 Immature Gran % (Auto) 2.5 H Neut % (Auto) 75.7 H Lymph % (Auto) 10.4 L [place] % (Auto) 8.1 Eos % (Auto) 2.5 Baso % (Auto) 0.8 Lymph # (Auto) 1.1 L [place] # (Auto) 0.8 Eos # (Auto) 0.3 Baso # (Auto) 0.1 Abs Immat Gran (auto) 0.26 H Absolute Neuts (auto) 7.8 Absolute Nucleated RBC 0.000 Nucleated RBC % (auto) 0.0 VBG pH 7.53 H VBG pCO2 29 VBG pO2 60 VBG HCO3 25 VBG O2 Saturation 90.0 VBG Base Excess 3.3 Sodium 137 Potassium 4.2 Chloride 106 Carbon Dioxide 22 Anion Gap 13 BUN 9 Creatinine 0.83 Estim Creat Clear Calc 107.2 Estimated GFR > 60 POC Glucose 208 H Random Glucose 213 H Calcium 8.8 Phosphorus 4.0 Magnesium 1.6 Albumin 2.9 L Microbiology Microbiology Results: Microbiology 05/05/24 07:50 Tracheal Aspirate Gram Stain - Final 05/05/24 07:50 Tracheal Aspirate Sputum Culture - Final Methicillin Res Staph Aureus 04/29/24 10:33 Blood - Venous Blood Culture - Final No growth after 5 days. 04/29/24 10:33 Blood - Venous Blood Culture - Final No growth after 5 days. Progress Note: A&P Assessment and plan (1) Delirium tremens: Status: Acute (2) Pulmonary aspiration: Status: Acute (3) Acute respiratory failure with hypoxia: Status: Acute (4) Aspiration pneumonia: Status: Acute Plan Assessment: 58-year-old gentleman being admitted with alcohol withdrawal further complicated by acute hyponatremia likely secondary to beer potomania, acute renal failure with metabolic acidosis and hypoglycemia Plan: Neuro: Alcohol withdrawal, still with significant encephalopathy, continue to titrate off sedative drips as tolerated improving albeit slowly. Cardiac: No acute issues. Pulmonary: Initially required intubation for high-dose sedative drips and also hypoxia secondary to pulmonary aspiration. Extubated 05/05/2024. Required re-intubation on 05/13/2024 secondary to high sedative treatment requirements, continue to titrate off as tolerated. Aspirated past the ET tube cuff. Sputum growing MRSA. Renal: No acute issues. Endo: No acute issues. Underlying diabetes mellitus, continue sliding scale insulin. Underlying hypothyroidism, continue Synthroid. GI: No acute issues. ID: Aspiration MRSA pneumonia, continue vancomycin. Heme/Onc: No acute issues. Psych: No acute issues. Miscellaneous: No acute issues. Prophylaxis: Heparin, famotidine Diet: Tube feeds Critical care time: 45 minutes Quality Stroke Does the patient have a stroke diagnosis?: No VTE Prior VTE?: No VTE Risk Level:: Medical - moderate - high VTE Device Contraindication: Treatment Not Indicated VTE Drug Contraindication: N/A - Med Ordered
[2024-05-17] MEDS: Folic Acid 2 MG in 0.9 % Sodium Chloride 50 ML 100.4 MG IV (10:19)
[2024-05-17] MEDS: Cisatracurium Besylate 20 MG/10 ML VIAL IVPUSH (11:19)
[2024-05-17] MEDS: vancomycin HCL 1,000 MG in 0.9 % Sodium Chloride 250 ML 270 MG IV ×2 (11:24→22:39)
[2024-05-17 11:54] LABS: Glucose, Whole Blood 153 mg/dL (60-115)
[2024-05-17] MEDS: Midazolam HCl/NS 50 MG/50 ML PLAST..BAG IVCONT (11:54)
--- NOTE | 2024-05-17 16:12 | MHC.CM.PN ---
Pt remains intubated with sedation for airway protection/behavior management. Plan for the day includes reducing FiO2 requirements and sedation for a trial of PSV. Pt initially from home - no services. D/C plan is ongoing - may need capacity eval and placement. CM to follow
[2024-05-17] MEDS: Valproic Acid Liquid 250 MG/5 ML SOLUTION 500 MG PO ×2 (16:18→20:12)
[2024-05-17 18:00] LABS: Glucose, Whole Blood 180 mg/dL (60-115)
--- NOTE | 2024-05-17 18:44 | PC.NURSE ---
Assumed care of patient 0700. Pt eyes open to name, squeezed b/l hands to command. PERRLA 2mm. Pt restless, sliding downward in bed, attempting to remove ETT airway. Pt given PRN medications, see MAR. Per MD allow pt to be more awake RASS -1 for PSV trial. PSV trial started 09:55 with settings 10/7.5, 60%. 11:15 patient became agitated, attempting to kick staff, moving legs OOB. Per MD PRN versed 4mg and PRN Nimbex given. Vent settings changed back to ACVC+, see vent assessments. 2 family members updated at bedside including sister Hetal.
[2024-05-17 19:51] LABS: Ammonia 64 umol/L (13-55)
[2024-05-17 19:55] LABS: Anion Gap 14 (12-20); Blood Urea Nitrogen 8 mg/dL (9-16); Calcium 8.8 mg/dL (8.4-10.2); Carbon Dioxide 24 mmol/L (22-29); Chloride 106 mmol/L (96-108); Creatinine Clr Calc Pharmacy 102.3; Estimated Glomerular Filt Rate > 60; Glucose Random 193 mg/dL (60-115); Magnesium 1.6 mg/dL (1.6-2.6); Phosphorus 3.9 mg/dL (2.7-4.5); Potassium 4.1 mmol/L (3.3-5.1); Sodium 140 mmol/L (135-145)
[2024-05-17] MEDS: QUEtiapine Fumarate 100 MG TABLET PO (20:12)
[2024-05-17] MEDS: Lactulose 20 GM/30 ML SOLUTION 30 GM PO (20:12)
[2024-05-17 21:18] LABS: Vancomycin Random 16.2 mcg/mL (15-20)
--- NOTE | 2024-05-17 21:47 | HE.PHANOTE ---
RE: VANCO DOSING Trough came back as 16.2 mg/L. Renal function is stable. Continue with dose of 1000 mg q12h, next trough is scheduled for 05/18/24 @2100.
[2024-05-17 23:57] LABS: Glucose, Whole Blood 200 mg/dL (60-115)
[2024-05-18] VITALS (39 sets, daily range): BP systolic 77–167; BP diastolic 44–93; PULSE 58–95; RESP 18–28; TEMP 34.7–37.8; O2SAT 89–95; BMI 28.0
[2024-05-18] MEDS: Insulin Lispro 100 UNIT/ML 3 ML VIAL SUBCUT ×5 (00:20→23:43)
[2024-05-18] MEDS: Heparin Sodium,Porcine 5,000 UNIT/ML VIAL 5000 UNIT SUBCUT ×4 (00:20→23:42)
[2024-05-18] MEDS: 0.9 % Sodium Chloride Flush 3 ML SYRINGE IVFLUSH ×4 (00:21→23:43)
[2024-05-18] MEDS: dexmedeTOMIDidine HCL/NS 400 MCG/100 ML INFUS..BTL 37.2 MCG IVCONT ×3 (01:25→06:18)
[2024-05-18] MEDS: propofoL 1,000 MG/100 ML VIAL 24.6 MG IVCONT ×7 (01:28→23:42)
[2024-05-18] MEDS: Albumin Human 25 % 100 ML IV (01:41)
[2024-05-18] MEDS: Ampicillin Sodium/Sulbactam Na 3 GM in 0.9 % Sodium Chloride 100 ML IV ×4 (03:45→22:11)
[2024-05-18] MEDS: Midazolam HCl 2 MG/2 ML VIAL 4 MG IVPUSH ×4 (04:22→20:46)
[2024-05-18] MEDS: Levothyroxine Sodium 100 MCG/5 ML VIAL IVPUSH (05:19)
[2024-05-18] MEDS: propofoL 200 MG/20 ML VIAL 50 MG IVPUSH ×2 (05:19→10:01)
[2024-05-18 05:46] LABS: MANUAL DIFF FLAG NO
[2024-05-18 05:46] LABS: VBG Base Excess 4.7 mmol/L; VBG HCO3 25 mmol/L (22-26); VBG pCO2 24 mmHg; VBG pH 7.61 (7.32-7.43); VBG pO2 64 mmHg
[2024-05-18 05:54] LABS: Basophils Absolute Auto 0.1 X10*3/uL (0.0-0.2); Basophils Percent Auto 0.7 % (0-2); Eosinophils Absolute Auto 0.2 X10*3/uL (0.0-0.4); Eosinophils Percent Auto 2.4 % (0-4); Hematocrit 25.6 % (42.0-52.0); Hemoglobin 8.5 g/dl (14.0-18.0); Imm Gran Abs Auto 0.28 X10*3/uL (0.00-0.03); Imm Gran Pct Auto 3.4 % (0.0-0.4); Lymphocytes Absolute Auto 1.1 X10*3/uL (1.2-4.9); Mean Corpuscular HGB Conc 33.2 g/dl (31.0-36.0); Mean Corpuscular Hemoglobin 32.4 pg (27.0-33.0); Mean Corpuscular Volume 97.7 fL (80.0-98.0); Monocytes Absolute Auto 0.8 X10*3/uL (0.1-1.2); Neutrophils Percent Auto 71.5 % (45-73); Platelet Count 555 X10*3/uL (160-400); Red Blood Count 2.62 X10*6/uL (4.60-5.80); Red Cell Distribution Width 15.9 % (11.0-16.0); White Blood Count 8.3 X10*3/uL (4.8-10.8)
[2024-05-18 05:57] LABS: Glucose, Whole Blood 162 mg/dL (60-115)
[2024-05-18 06:05] LABS: Albumin Level 3.4 g/dL (3.5-5.0); Anion Gap 17 (12-20); Blood Urea Nitrogen 8 mg/dL (9-16); Calcium 8.9 mg/dL (8.4-10.2); Carbon Dioxide 20 mmol/L (22-29); Chloride 107 mmol/L (96-108); Estimated Glomerular Filt Rate > 60; Glucose Random 172 mg/dL (60-115); Magnesium 1.7 mg/dL (1.6-2.6); Phosphorus 4.3 mg/dL (2.7-4.5); Sodium 139 mmol/L (135-145)
[2024-05-18 06:06] LABS: Venous Blood Gas Refer to POC result
[2024-05-18] MEDS: THIAMINE HCL IV (08:40)
[2024-05-18] MEDS: DEXTROSE 5% IV (08:40)
[2024-05-18] MEDS: Folic Acid 2 MG in 0.9 % Sodium Chloride 50 ML 100.4 MG IV (08:43)
[2024-05-18] MEDS: Valproic Acid Liquid 250 MG/5 ML SOLUTION 500 MG PO ×3 (08:44→20:00)
[2024-05-18] MEDS: Chlorhexidine Gluc Oral Rinse 15 ML MOUTHWASH BUCCAL ×3 (08:44→20:00)
[2024-05-18] MEDS: Famotidine/PF 20 MG/2 ML VIAL IVPUSH (08:44)
[2024-05-18] MEDS: dexmedeTOMIDine HCL/NS 400 MCG/100 ML PLAST..BAG 37.2 MCG IVCONT ×6 (09:22→22:09)
[2024-05-18] MEDS: Midazolam HCl/NS 50 MG/50 ML PLAST..BAG IVCONT ×2 (09:53→20:38)
--- NOTE | 2024-05-18 10:52 | MHC.CLN ---
F/U PT REMAINS INTUBATED AND SEDATED DISCUSSED AT ROUNDS WITH MD RECEIVING GLUCERNA AT MAX GOAL RATE 60ML/HR PROVIDES 1440KCALS (2089 TOTAL KCALS WITH SEDATION; 28KCALS/KG BASED ON IBW), 60G PROTEIN (.8G/KG), 1228ML TOTAL FREE WATER FROM FORMULA WATER FLUSHES HELD AT THIS TIME CONTINUE TO MONITOR TOLERANCE AND LYTES
[2024-05-18] MEDS: Cisatracurium Besylate 20 MG/10 ML VIAL IVPUSH ×2 (10:53→12:31)
[2024-05-18 11:29] LABS: Glucose, Whole Blood 152 mg/dL (60-115)
[2024-05-18] MEDS: vancomycin HCL 1,000 MG in 0.9 % Sodium Chloride 250 ML 270 MG IV ×2 (11:30→22:52)
--- NOTE | 2024-05-18 14:42 | P.PNCC_ITS ---
Subjective Subjective Date of Service: 05/18/24 Interval History: 58-year-old gentleman with underlying alcohol dependence, obesity, diabetes mellitus being admitted for hyperglycemia and alcohol withdrawal on background of acute metabolic acidosis with acute renal failure and hyponatremia likely secondary to beer potomania. Required intubation on 04/30/2024 secondary to high sedative drip requirements for underlying delirium tremens. Extubated on 05/05, however remains with significant toxic encephalopathy requiring Precedex drip. Reintubated on 05/13 secondary to high sedative requirements. No events overnight. Still severely agitated with sedation vacations. Critical Care Time (minutes): 45 Physical Exam 2 Vital Signs: Vital Signs: Last Vital Signs Temp 99.5 F 05/18/24 14:00 Pulse 71 05/18/24 14:00 Resp 18 05/18/24 14:00 BP 95/61 05/18/24 14:00 Pulse Ox 91 L 05/18/24 14:00 O2 Del Method Mechanical Ventil ation 05/18/24 14:00 O2 Flow Rate 15 05/13/24 06:00 FiO2 65 05/18/24 14:00 BMI result Body Mass Index 28.0 Const: General: no acute distress and other (Sedated on ventilatory support) HEENT: Head: Yes atraumatic Eyes: General: appearance normal, both eyes and all related structures S clerae: sclerae normal EOM: EOMs intact bilaterally Neck: Neck: Yes supple Lymphatic: no lymphadenopathy noted Resp: Auscultation: crackles (Mild bilateral) Cardio: Rate: regular rate Rhythm: regular rhythm Heart sounds: no gallops, no murmurs and no rubs GI: Palpation (GI): Soft to palpation and Other GI palpation findings present ( Nontender) Auscultation: normal bowel sounds Skin: General skin exam: other ( warm) Extrem: General: No clubbing, No cyanosis and No edema Objective Data Labs 05/18/24 05:39 05/18/24 05:39 Labs: Laboratory Results - last 24 hr 05/17/24 05/17/24 05/17/24 17:54 19:32 20:56 WBC RBC Hgb Hct MCV MCH MCHC RDW Plt Count MPV Immature Gran % (Auto) Neut % (Auto) Lymph % (Auto) [place] % (Auto) Eos % (Auto) Baso % (Auto) Lymph # (Auto) [place] # (Auto) Eos # (Auto) Baso # (Auto) Abs Immat Gran (auto) Absolute Neuts (auto) Absolute Nucleated RBC Nucleated RBC % (auto) VBG pH VBG pCO2 VBG pO2 VBG HCO3 VBG O2 Saturation VBG Base Excess Sodium 140 Potassium 4.1 Chloride 106 Carbon Dioxide 24 Anion Gap 14 BUN 8 L Creatinine 0.87 Estim Creat Clear Calc 102.3 Estimated GFR > 60 POC Glucose 180 H Random Glucose 193 H Calcium 8.8 Phosphorus 3.9 Magnesium 1.6 Ammonia 64 H Albumin Random Vancomycin 16.2 05/17/24 05/18/24 05/18/24 23:52 05:39 05:42 WBC 8.3 RBC 2.62 L Hgb 8.5 L Hct 25.6 L MCV 97.7 MCH 32.4 MCHC 33.2 RDW 15.9 Plt Count 555 H MPV 10.0 Immature Gran % (Auto) 3.4 H Neut % (Auto) 71.5 Lymph % (Auto) 13.0 L [place] % (Auto) 9.0 Eos % (Auto) 2.4 Baso % (Auto) 0.7 Lymph # (Auto) 1.1 L [place] # (Auto) 0.8 Eos # (Auto) 0.2 Baso # (Auto) 0.1 Abs Immat Gran (auto) 0.28 H Absolute Neuts (auto) 6.0 Absolute Nucleated RBC 0.000 Nucleated RBC % (auto) 0.0 VBG pH 7.61 H* VBG pCO2 24 VBG pO2 64 VBG HCO3 25 VBG O2 Saturation 95.0 VBG Base Excess 4.7 Sodium 139 Potassium 5.0 D Chloride 107 Carbon Dioxide 20 L Anion Gap 17 BUN 8 L Creatinine 0.89 Estim Creat Clear Calc 100.0 Estimated GFR > 60 POC Glucose 200 H Random Glucose 172 H Calcium 8.9 Phosphorus 4.3 Magnesium 1.7 Ammonia Albumin 3.4 L Random Vancomycin 05/18/24 05/18/24 05:52 11:24 WBC RBC Hgb Hct MCV MCH MCHC RDW Plt Count MPV Immature Gran % (Auto) Neut % (Auto) Lymph % (Auto) [place] % (Auto) Eos % (Auto) Baso % (Auto) Lymph # (Auto) [place] # (Auto) Eos # (Auto) Baso # (Auto) Abs Immat Gran (auto) Absolute Neuts (auto) Absolute Nucleated RBC Nucleated RBC % (auto) VBG pH VBG pCO2 VBG pO2 VBG HCO3 VBG O2 Saturation VBG Base Excess Sodium Potassium Chloride Carbon Dioxide Anion Gap BUN Creatinine Estim Creat Clear Calc Estimated GFR POC Glucose 162 H 152 H Random Glucose Calcium Phosphorus Magnesium Ammonia Albumin Random Vancomycin Microbiology Microbiology Results: Microbiology 05/05/24 07:50 Tracheal Aspirate Gram Stain - Final 05/05/24 07:50 Tracheal Aspirate Sputum Culture - Final Methicillin Res Staph Aureus 04/29/24 10:33 Blood - Venous Blood Culture - Final No growth after 5 days. 04/29/24 10:33 Blood - Venous Blood Culture - Final No growth after 5 days. Progress Note: A&P Assessment and plan (1) Aspiration pneumonia: Status: Acute (2) Acute respiratory failure with hypoxia: Status: Acute (3) Delirium tremens: Status: Acute Plan Assessment: 58-year-old gentleman being admitted with alcohol withdrawal further complicated by acute hyponatremia likely secondary to beer potomania, acute renal failure with metabolic acidosis and hypoglycemia Plan: Neuro: Alcohol withdrawal, still with significant encephalopathy, continue to titrate off sedative drips as tolerated improving albeit slowly. Will obtain MRI brain. Lamictal switch to valproic acid. Continue quetiapine. Cardiac: No acute issues. Pulmonary: Initially required intubation for high-dose sedative drips and also hypoxia secondary to pulmonary aspiration. Extubated 05/05/2024. Required re- intubation on 05/13/2024 secondary to high sedative treatment requirements, continue to titrate off as tolerated. Aspirated past the ET tube cuff. Sputum growing MRSA. Renal: No acute issues. Endo: No acute issues. Underlying diabetes mellitus, continue sliding scale insulin. Underlying hypothyroidism, continue Synthroid. GI: No acute issues. ID: Aspiration MRSA pneumonia, continue vancomycin. Heme/Onc: No acute issues. Psych: No acute issues. Miscellaneous: No acute issues. Prophylaxis: Heparin, famotidine Diet: Tube feeds Critical care time: 45 minutes Quality Stroke Does the patient have a stroke diagnosis?: No VTE Prior VTE?: No VTE Risk Level:: Medical - moderate - high VTE Device Contraindication: Treatment Not Indicated VTE Drug Contraindication: N/A - Med Ordered
[2024-05-18 17:17] LABS: Glucose, Whole Blood 152 mg/dL (60-115)
--- NOTE | 2024-05-18 19:34 | PC.NURSE ---
Addendum entered by Aden Wilson RN 05/18/24 19:59: CORRECTION: patient handed off 1899 on 05/18/24 Original Note: Assumed care 0700 on 05/18/24. patient intubated and sedated, RASS -3, opening eyes spontaneously, coughing, weak gag, not following commands.. sedation running interrupted and PRNs given per APR... when interacting with this patient for mouth care, repositioning, assessments etc... the patient will alert and attempt to remove ETT, start sliding out of bed (restraint order maintained), attempt to grab hospital staff and mouth-out incompressible words around breathing-tube... RASS +3.. additionally, during these wakeful periods will become asynchronous and has difficulty settling out once agitated... words of comfort and comforting touch attempted, but agitate patient more... patient requires multiple versed, numbex, and prop PRNs to keep comfortable, safe,and vent synchronous. after 1330 this afternoon patient seemed to settle down and remained calm until change of shift at 1900... patient handed off 1899 on 04/17/24
[2024-05-18] MEDS: QUEtiapine Fumarate 100 MG TABLET PO (20:00)
--- NOTE | 2024-05-18 21:56 | HE.PHANOTE ---
RE: VANCO DOSING Trough came back as 17 mg/L and renal function is stable. Continue with dose of 1000 mg q12h, next trough is scheduled for 05/19/24 @2100.
[2024-05-18 23:21] LABS: Glucose, Whole Blood 176 mg/dL (60-115)
[2024-05-19] VITALS (35 sets, daily range): BP systolic 61–192; BP diastolic 4–125; PULSE 59–128; RESP 18–28; TEMP 34.6–38.1; O2SAT 88–99; BMI 27.7
[2024-05-19] MEDS: dexmedeTOMIDine HCL/NS 400 MCG/100 ML PLAST..BAG 37.2 MCG IVCONT ×9 (00:22→22:09)
[2024-05-19] MEDS: Midazolam HCl 2 MG/2 ML VIAL 4 MG IVPUSH ×5 (01:36→14:00)
[2024-05-19] MEDS: Ampicillin Sodium/Sulbactam Na 3 GM in 0.9 % Sodium Chloride 100 ML IV ×4 (03:33→21:42)
[2024-05-19] MEDS: propofoL 1,000 MG/100 ML VIAL 24.6 MG IVCONT ×6 (03:33→20:13)
[2024-05-19] MEDS: propofoL 200 MG/20 ML VIAL 50 MG IVPUSH (04:20)
[2024-05-19 05:48] LABS: MANUAL DIFF FLAG NO
[2024-05-19 05:49] LABS: Basophils Absolute Auto 0.1 X10*3/uL (0.0-0.2); Basophils Percent Auto 0.6 % (0-2); Eosinophils Absolute Auto 0.2 X10*3/uL (0.0-0.4); Eosinophils Percent Auto 2.5 % (0-4); Hematocrit 27.3 % (42.0-52.0); Hemoglobin 9.2 g/dl (14.0-18.0); Imm Gran Abs Auto 0.37 X10*3/uL (0.00-0.03); Imm Gran Pct Auto 4.1 % (0.0-0.4); Lymphocytes Absolute Auto 1.1 X10*3/uL (1.2-4.9); Lymphocytes Percent Auto 12.6 % (20-40); Mean Corpuscular HGB Conc 33.7 g/dl (31.0-36.0); Mean Corpuscular Hemoglobin 32.7 pg (27.0-33.0); Mean Corpuscular Volume 97.2 fL (80.0-98.0); Mean Platelet Volume 9.8 fL (9.4-12.4); Monocytes Absolute Auto 0.8 X10*3/uL (0.1-1.2); Monocytes Percent Auto 8.6 % (2-11); Neutrophils Absolute Auto 6.5 x10*3/uL (2.0-8.3); Neutrophils Percent Auto 71.6 % (45-73); Platelet Count 527 X10*3/uL (160-400); Red Blood Count 2.81 X10*6/uL (4.60-5.80); Red Cell Distribution Width 15.8 % (11.0-16.0)
[2024-05-19] MEDS: Levothyroxine Sodium 100 MCG/5 ML VIAL IVPUSH (06:00)
[2024-05-19 06:11] LABS: Alanine Aminotransferase < 6 U/L (0-40); Albumin Level 3.3 g/dL (3.5-5.0); Alkaline Phosphatase 132 U/L (39-117); Anion Gap 14 (12-20); Aspartate Amino Transferase 14 U/L (5-37); Bilirubin Total 0.3 mg/dL (0.0-1.0); Blood Urea Nitrogen 9 mg/dL (9-16); Calcium 8.8 mg/dL (8.4-10.2); Carbon Dioxide 23 mmol/L (22-29); Chloride 108 mmol/L (96-108); Creatinine Clr Calc Pharmacy 114.1; Estimated Glomerular Filt Rate > 60; Glucose Random 182 mg/dL (60-115); Magnesium 1.6 mg/dL (1.6-2.6); Phosphorus 4.4 mg/dL (2.7-4.5); Potassium 4.1 mmol/L (3.3-5.1); Sodium 141 mmol/L (135-145); Total Protein 6.4 g/dL (6.5-8.0)
[2024-05-19] MEDS: Insulin Lispro 100 UNIT/ML 3 ML VIAL SUBCUT ×2 (06:18→19:14)
[2024-05-19 06:21] LABS: VBG Base Excess 3.2 mmol/L; VBG HCO3 26 mmol/L (22-26); VBG pCO2 33 mmHg; VBG pO2 52 mmHg
[2024-05-19] MEDS: Heparin Sodium,Porcine 5,000 UNIT/ML VIAL 5000 UNIT SUBCUT ×2 (08:07→16:29)
[2024-05-19] MEDS: THIAMINE HCL IV (08:09)
[2024-05-19] MEDS: DEXTROSE 5% IV (08:09)
[2024-05-19] MEDS: Valproic Acid Liquid 250 MG/5 ML SOLUTION 500 MG PO ×3 (08:11→21:42)
[2024-05-19] MEDS: Folic Acid 2 MG in 0.9 % Sodium Chloride 50 ML 100.4 MG IV (08:11)
[2024-05-19] MEDS: Chlorhexidine Gluc Oral Rinse 15 ML MOUTHWASH BUCCAL ×3 (08:11→21:41)
[2024-05-19] MEDS: Albumin Human 25 % 100 ML IV ×2 (08:13→16:30)
[2024-05-19] MEDS: 0.9 % Sodium Chloride Flush 3 ML SYRINGE IVFLUSH ×2 (08:27→17:05)
[2024-05-19] MEDS: Famotidine/PF 20 MG/2 ML VIAL IVPUSH (08:53)
[2024-05-19 09:24] LABS: Venous Blood Gas Refer to POC result
[2024-05-19 09:26] LABS: VBG Base Excess 2.1 mmol/L; VBG HCO3 28 mmol/L (22-26); VBG pCO2 51 mmHg; VBG pH 7.34 (7.32-7.43); VBG pO2 40 mmHg
[2024-05-19] MEDS: Cisatracurium Besylate 20 MG/10 ML VIAL IVPUSH (10:23)
[2024-05-19] MEDS: hydrALAZINE HCl 20 MG/ML VIAL IVPUSH (11:00)
[2024-05-19 11:27] LABS: Glucose, Whole Blood 161 mg/dL (60-115)
[2024-05-19] MEDS: Midazolam HCl/NS 50 MG/50 ML PLAST..BAG IVCONT ×2 (11:43→19:36)
[2024-05-19] MEDS: Cisatracurium Besylate 100 MG in 0.9 % Sodium Chloride 40 ML 5.25 MG IVCONT ×2 (12:00→13:29)
[2024-05-19] MEDS: vancomycin HCL 1,000 MG in 0.9 % Sodium Chloride 250 ML 270 MG IV ×2 (12:26→22:13)
[2024-05-19] MEDS: Ketamine HCl/NS 50 MG/5 ML SYRINGE 100 MG IVPUSH ×2 (13:04→14:30)
[2024-05-19 19:12] LABS: Glucose, Whole Blood 165 mg/dL (60-115)
[2024-05-19] MEDS: Norepinephrine Bitartrate/D5W 8 MG/250 ML PLAST..BAG 4.61 MG IVCONT (19:14)
--- NOTE | 2024-05-19 19:31 | PC.NURSE ---
Assumed care @ 0700? Neuro/Resp: Sedated/intubated, Propofol, precedex, and versed gtt. Opens eyes occasionally, does not track, does not follow commands, BANKS. (passive ROM & repositioning performed). Intermittent restlessness/ agitation. 1:1 sitter at bedside.? Cardiac: SR-ST, back on levophed gtt, MAP goal >65.? GI: LBM? 05/19 , +bowel sounds, OGT in place/clamp s/p Nimbex gtt this afternoon. POC Q6hr, on sliding scale insulin per APR. . : Male purewick in place.? Skin: ?Impaired skin integrity - see skin assessment (repositioning maintained)? Infectious: IV antibiotics? Lines: peripheral IVs Pt was brought to have a Brain MRI approx 1300, agitated/restless requiring Paralitics and sedatives IVP per APR.
--- NOTE | 2024-05-19 21:19 | HE.PHANOTE ---
Re: [place] Pt has improving renal function. Trough returned at 18.0, pt is therapeutic. Continue current dose of 1,000 q12h, with predicted AUC 475, predicted trough 15.1, although pt's trough is running 3.3 points higher than predictions in insight exposure. Next trough 05/20 @2100.
[2024-05-19] MEDS: QUEtiapine Fumarate 100 MG TABLET PO (21:41)
[2024-05-19 23:30] LABS: Glucose, Whole Blood 152 mg/dL (60-115)
[2024-05-20] VITALS (36 sets, daily range): BP systolic 100–166; BP diastolic 59–100; PULSE 56–77; RESP 16–19; TEMP 34.6–36.4; O2SAT 89–94; BMI 27.7
[2024-05-20] MEDS: Heparin Sodium,Porcine 5,000 UNIT/ML VIAL 5000 UNIT SUBCUT ×4 (00:05→23:04)
[2024-05-20] MEDS: propofoL 1,000 MG/100 ML VIAL 24.6 MG IVCONT ×5 (00:05→20:59)
[2024-05-20] MEDS: dexmedeTOMIDine HCL/NS 400 MCG/100 ML PLAST..BAG 37.2 MCG IVCONT ×9 (00:06→23:06)
[2024-05-20] MEDS: Ampicillin Sodium/Sulbactam Na 3 GM in 0.9 % Sodium Chloride 100 ML IV ×4 (03:44→21:16)
[2024-05-20] MEDS: propofoL 1,000 MG/100 ML VIAL 19.68 MG IVCONT (04:13)
[2024-05-20] MEDS: Levothyroxine Sodium 100 MCG/5 ML VIAL IVPUSH (05:16)
[2024-05-20 05:36] LABS: VBG HCO3 27 mmol/L (22-26); VBG pCO2 34 mmHg; VBG pH 7.51 (7.32-7.43); VBG pO2 52 mmHg
[2024-05-20 05:42] LABS: Venous Blood Gas Refer to POC result
[2024-05-20 06:04] LABS: Glucose, Whole Blood 148 mg/dL (60-115)
[2024-05-20 06:19] LABS: Albumin Level 3.4 g/dL (3.5-5.0); Anion Gap 15 (12-20); Blood Urea Nitrogen 6 mg/dL (9-16); Calcium 9.1 mg/dL (8.4-10.2); Carbon Dioxide 24 mmol/L (22-29); Chloride 109 mmol/L (96-108); Creatinine Clr Calc Pharmacy 106.6; Estimated Glomerular Filt Rate > 60; Glucose Random 142 mg/dL (60-115); Magnesium 1.8 mg/dL (1.6-2.6); Phosphorus 3.8 mg/dL (2.7-4.5); Potassium 4.1 mmol/L (3.3-5.1); Sodium 144 mmol/L (135-145)
[2024-05-20 06:26] LABS: Hematocrit 28.7 % (42.0-52.0); Hemoglobin 9.1 g/dl (14.0-18.0); Mean Corpuscular HGB Conc 31.7 g/dl (31.0-36.0); Mean Corpuscular Hemoglobin 33.5 pg (27.0-33.0); Mean Corpuscular Volume 105.5 fL (80.0-98.0); Platelet Count 517 X10*3/uL (160-400); Red Blood Count 2.72 X10*6/uL (4.60-5.80); Red Cell Distribution Width 15.8 % (11.0-16.0); White Blood Count 8.1 X10*3/uL (4.8-10.8)
[2024-05-20 07:49] LABS: Band Neutrophils Percent 5 % (3-5); Basophils Abs Manual 0.2 X10*3/uL (0.0-0.2); Basophils Percent Manual 2 % (0-2); Eosinophils Absolute Manual 0.2 X10*3/uL (0.0-0.4); Eosinophils Percent Manual 2 % (0-4); Lymphocytes Absolute Manual 1.2 X10*3/uL (1.2-4.9); Lymphocytes Percent Manual 15 % (20-40); Metamyelocytes Absolute 0.2 X10*3/uL; Metamyelocytes Percent 2 %; Monocytes Absolute Manual 0.4 X10*3/uL (0.1-1.2); Monocytes Percent Manual 5 % (2-11); Neutrophils Percent Manual 69 % (45-73)
[2024-05-20 07:55] LABS: Macrocytosis 1+ (5-14) /OIF; Platelet Estimate INCREASED (NORMAL); Platelet Morphology Comment NORMAL; RBC Morphology NOTED; Spherocytes 1+ (0-2) /OIF
[2024-05-20] MEDS: 0.9 % Sodium Chloride Flush 3 ML SYRINGE IVFLUSH ×3 (08:31→23:07)
[2024-05-20] MEDS: Chlorhexidine Gluc Oral Rinse 15 ML MOUTHWASH BUCCAL ×3 (08:33→19:29)
[2024-05-20] MEDS: Valproic Acid Liquid 250 MG/5 ML SOLUTION 500 MG PO ×3 (08:43→19:29)
[2024-05-20] MEDS: THIAMINE HCL IV (08:50)
[2024-05-20] MEDS: DEXTROSE 5% IV (08:50)
[2024-05-20] MEDS: Folic Acid 2 MG in 0.9 % Sodium Chloride 50 ML 100.4 MG IV (08:51)
--- NOTE | 2024-05-20 09:48 | PC.NURSE ---
Addendum entered by Aden Wilson RN 05/20/24 11:48: patient became violent towards staff, turning in bed to kick towards staff... sedation vacation ended approx 10:50. PRN and Titrations per APR... Original Note: assumed care 0700 05/20/24... pe MD to attempt sedation vacation... per MD titrate prop, then versed... per MD titrate slow d/t behavioral concerns... at 0950 first titration made...
[2024-05-20] MEDS: Famotidine/PF 20 MG/2 ML VIAL IVPUSH (10:12)
--- NOTE | 2024-05-20 10:54 | MHC.CLN ---
F/U PT REMAINS INTUBATED AND SEDATED DISCUSSED AT ROUNDS WITH MD RECEIVING GLUCERNA AT MAX GOAL RATE 60ML/HR PROVIDES 1440KCALS (2089 TOTAL KCALS WITH SEDATION; 28KCALS/KG BASED ON IBW), 60G PROTEIN (.8G/KG), 1228ML TOTAL FREE WATER FROM FORMULA RECOMMEND ADDING 240ML FREE WATER FLUSHES Q 6 HRS TO PROVIDE 2188ML TOTAL WATER FROM FORMULA AND FLUSHES (29ML/KG) CONTINUE TO MONITOR TOLERANCE AND LYTES
[2024-05-20] MEDS: Midazolam HCl 2 MG/2 ML VIAL 4 MG IVPUSH ×3 (11:04→23:13)
[2024-05-20 11:43] LABS: Glucose, Whole Blood 155 mg/dL (60-115)
[2024-05-20] MEDS: vancomycin HCL 1,000 MG in 0.9 % Sodium Chloride 250 ML 270 MG IV ×2 (11:59→23:03)
[2024-05-20] MEDS: Insulin Lispro 100 UNIT/ML 3 ML VIAL SUBCUT (12:18)
--- NOTE | 2024-05-20 13:41 | P.PNCC_ITS ---
Subjective Subjective Date of Service: 05/20/24 Interval History: 58-year-old gentleman with underlying alcohol dependence, obesity, diabetes mellitus being admitted for hyperglycemia and alcohol withdrawal on background of acute metabolic acidosis with acute renal failure and hyponatremia likely secondary to beer potomania. Required intubation on 04/30/2024 secondary to high sedative drip requirements for underlying delirium tremens. Extubated on 05/05, however remains with significant toxic encephalopathy requiring Precedex drip. Reintubated on 05/13 secondary to high sedative requirements. No events overnight. Continues to be severely agitated with sedation vacations trying to kick staff. Critical Care Time (minutes): 45 Physical Exam 2 Vital Signs: Vital Signs: Last Vital Signs Temp 97.3 F 05/20/24 12:00 Pulse 61 05/20/24 13:00 Resp 18 05/20/24 13:00 BP 103/67 05/20/24 13:00 Pulse Ox 91 L 05/20/24 13:00 O2 Del Method Mechanical Ventil ation 05/20/24 13:00 O2 Flow Rate 15 05/13/24 06:00 FiO2 60 05/20/24 13:00 BMI result Body Mass Index 27.7 Const: General: no acute distress and other (Sedated on ventilatory support) Eyes: Sclerae: sclerae normal EOM: EOMs intact bilaterally Neck: Neck: Yes no lymphadenopathy, Yes trachea midline and Yes supple Resp: Auscultation: crackles (Mild bilateral) Cardio: Rate: regular rate Rhythm: regular rhythm Heart sounds: no gallops, no murmurs and no rubs GI: Palpation (GI): Soft to palpation and Other GI palpation findings present ( Nontender) Auscultation: normal bowel sounds Extrem: General: Yes no pedal edema, No clubbing and No cyanosis Objective Data Labs 05/20/24 05:44 05/20/24 05:44 Labs: Laboratory Results - last 24 hr 05/19/24 05/19/24 05/19/24 19:08 20:54 23:27 WBC RBC Hgb Hct MCV MCH MCHC RDW Plt Count MPV Immature Gran % (Auto) Neut % (Auto) Lymph % (Auto) Centre % (Auto) Eos % (Auto) Baso % (Auto) Lymph # (Auto) [place] # (Auto) Eos # (Auto) Baso # (Auto) Abs Immat Gran (auto) Absolute Neuts (auto) Absolute Nucleated RBC Nucleated RBC % (auto) Neutrophils % (Manual) Band Neutrophils % Lymphocytes % (Manual) Monocytes % (Manual) Eosinophils % (Manual) Basophils % (Manual) Metamyelocytes % Abs Neuts (Manual) Lymphocytes # (Manual) Monocytes # (Manual) Eosinophils # (Manual) Basophils # (Manual) Metamyelocytes # Platelet Estimate Plt Morphology Comment RBC Morphology Macrocytosis Spherocytes VBG pH VBG pCO2 VBG pO2 VBG HCO3 VBG O2 Saturation VBG Base Excess Sodium Potassium Chloride Carbon Dioxide Anion Gap BUN Creatinine Estim Creat Clear Calc Estimated GFR POC Glucose 165 H 152 H Random Glucose Calcium Phosphorus Magnesium Albumin Random Vancomycin 18.0 05/20/24 05/20/24 05/20/24 05:32 05:44 06:01 WBC 8.1 RBC 2.72 L Hgb 9.1 L Hct 28.7 L MCV 105.5 H D MCH 33.5 H MCHC 31.7 RDW 15.8 Plt Count 517 H MPV 10.0 Immature Gran % (Auto) Cancelled Neut % (Auto) Cancelled Lymph % (Auto) Cancelled [place] % (Auto) Cancelled Eos % (Auto) Cancelled Baso % (Auto) Cancelled Lymph # (Auto) Cancelled [place] # (Auto) Cancelled Eos # (Auto) Cancelled Baso # (Auto) Cancelled Abs Immat Gran (auto) Cancelled Absolute Neuts (auto) Cancelled Absolute Nucleated RBC 0.000 Nucleated RBC % (auto) 0.0 Neutrophils % (Manual) 69 Band Neutrophils % 5 Lymphocytes % (Manual) 15 L Monocytes % (Manual) 5 Eosinophils % (Manual) 2 Basophils % (Manual) 2 Metamyelocytes % 2 Abs Neuts (Manual) 6.0 Lymphocytes # (Manual) 1.2 Monocytes # (Manual) 0.4 Eosinophils # (Manual) 0.2 Basophils # (Manual) 0.2 Metamyelocytes # 0.2 Platelet Estimate INCREASED Plt Morphology Comment NORMAL RBC Morphology NOTED Macrocytosis 1+ (5-14) Spherocytes 1+ (0-2) VBG pH 7.51 H VBG pCO2 34 VBG pO2 52 VBG HCO3 27 H VBG O2 Saturation 85.0 VBG Base Excess 5.0 Sodium 144 Potassium 4.1 Chloride 109 H Carbon Dioxide 24 Anion Gap 15 BUN 6 L Creatinine 0.77 Estim Creat Clear Calc 106.6 Estimated GFR > 60 POC Glucose 148 H Random Glucose 142 H Calcium 9.1 Phosphorus 3.8 Magnesium 1.8 Albumin 3.4 L Random Vancomycin 05/20/24 11:38 WBC RBC Hgb Hct MCV MCH MCHC RDW Plt Count MPV Immature Gran % (Auto) Neut % (Auto) Lymph % (Auto) Centre % (Auto) Eos % (Auto) Baso % (Auto) Lymph # (Auto) Centre # (Auto) Eos # (Auto) Baso # (Auto) Abs Immat Gran (auto) Absolute Neuts (auto) Absolute Nucleated RBC Nucleated RBC % (auto) Neutrophils % (Manual) Band Neutrophils % Lymphocytes % (Manual) Monocytes % (Manual) Eosinophils % (Manual) Basophils % (Manual) Metamyelocytes % Abs Neuts (Manual) Lymphocytes # (Manual) Monocytes # (Manual) Eosinophils # (Manual) Basophils # (Manual) Metamyelocytes # Platelet Estimate Plt Morphology Comment RBC Morphology Macrocytosis Spherocytes VBG pH VBG pCO2 VBG pO2 VBG HCO3 VBG O2 Saturation VBG Base Excess Sodium Potassium Chloride Carbon Dioxide Anion Gap BUN Creatinine Estim Creat Clear Calc Estimated GFR POC Glucose 155 H Random Glucose Calcium Phosphorus Magnesium Albumin Random Vancomycin Microbiology Microbiology Results: Microbiology 05/05/24 07:50 Tracheal Aspirate Gram Stain - Final 05/05/24 07:50 Tracheal Aspirate Sputum Culture - Final Methicillin Res Staph Aureus 04/29/24 10:33 Blood - Venous Blood Culture - Final No growth after 5 days. 04/29/24 10:33 Blood - Venous Blood Culture - Final No growth after 5 days. Progress Note: A&P Assessment and plan (1) Delirium tremens: Status: Acute (2) Encephalopathy: Status: Acute (3) Pulmonary aspiration: Status: Acute (4) Acute respiratory failure with hypoxia: Status: Acute (5) Aspiration pneumonia: Status: Acute Plan Assessment: 58-year-old gentleman being admitted with alcohol withdrawal further complicated by acute hyponatremia likely secondary to beer potomania, acute renal failure with metabolic acidosis and hypoglycemia Plan: Neuro: Alcohol withdrawal, still with significant encephalopathy, continue to titrate off sedative drips as tolerated improving albeit slowly. MRI brain with no acute parenchymal findings. Trying to kick staff with sedation vacation. Continue valproic acid and Seroquel. Cardiac: No acute issues. Pulmonary: Initially required intubation for high-dose sedative drips and also hypoxia secondary to pulmonary aspiration. Extubated 05/05/2024. Required re- intubation on 05/13/2024 secondary to high sedative treatment requirements, continue to titrate off as tolerated. Aspirated past the ET tube cuff. Sputum growing MRSA. Renal: No acute issues. Endo: No acute issues. Underlying diabetes mellitus, continue sliding scale insulin. Underlying hypothyroidism, continue Synthroid. GI: No acute issues. ID: Aspiration MRSA pneumonia, continue vancomycin. Heme/Onc: No acute issues. Psych: No acute issues. Miscellaneous: No acute issues. Prophylaxis: Heparin, famotidine Diet: Tube feeds Critical care time: 45 minutes Quality Stroke Does the patient have a stroke diagnosis?: No VTE Prior VTE?: No VTE Risk Level:: Medical - moderate - high VTE Device Contraindication: Treatment Not Indicated VTE Drug Contraindication: N/A - Med Ordered
--- NOTE | 2024-05-20 14:06 | MHC.CM.PN ---
Pt remains intubated and on sedation with attempts to reduce rate: pt becomes increasingly aggressive and uncooperative. Plan is to continue sedation weaning for extubation ability. Pt may need to be see by psych for possible medication management. Pt will also need CARE team for ETOH hx. CM to follow
[2024-05-20] MEDS: propofoL 200 MG/20 ML VIAL 50 MG IVPUSH ×2 (15:27→19:09)
[2024-05-20 17:12] LABS: Glucose, Whole Blood 122 mg/dL (60-115)
[2024-05-20] MEDS: QUEtiapine Fumarate 100 MG TABLET PO (19:29)
[2024-05-20] MEDS: Midazolam HCl/NS 50 MG/50 ML PLAST..BAG IVCONT (20:55)
[2024-05-20 21:26] LABS: Vancomycin Random 18.2 mcg/mL (15-20)
--- NOTE | 2024-05-20 21:32 | HE.PHANOTE ---
RE: VANCO DOSING Trough came back as 18 mg/L and renal function is stable. Dose is continued as 1000 mg q12h, next trough is scheduled for 05/21/24 @2100.
[2024-05-20 23:53] LABS: Glucose, Whole Blood 145 mg/dL (60-115)
[2024-05-21] VITALS (36 sets, daily range): BP systolic 108–159; BP diastolic 65–103; PULSE 55–94; RESP 18–25; TEMP 34.9–37; O2SAT 88–96; BMI 28.2
[2024-05-21] MEDS: propofoL 1,000 MG/100 ML VIAL 24.6 MG IVCONT ×7 (00:06→23:50)
[2024-05-21] MEDS: propofoL 200 MG/20 ML VIAL 50 MG IVPUSH ×2 (01:29→21:58)
[2024-05-21] MEDS: dexmedeTOMIDine HCL/NS 400 MCG/100 ML PLAST..BAG 37.2 MCG IVCONT ×9 (01:49→23:51)
[2024-05-21] MEDS: Midazolam HCl 2 MG/2 ML VIAL 4 MG IVPUSH ×4 (03:13→20:23)
[2024-05-21] MEDS: Ampicillin Sodium/Sulbactam Na 3 GM in 0.9 % Sodium Chloride 100 ML IV ×4 (03:13→21:20)
[2024-05-21 05:08] LABS: VBG Base Excess 3.3 mmol/L; VBG HCO3 26 mmol/L (22-26); VBG pCO2 35 mmHg; VBG pH 7.47 (7.32-7.43); VBG pO2 50 mmHg
[2024-05-21] MEDS: Levothyroxine Sodium 100 MCG/5 ML VIAL IVPUSH (05:18)
[2024-05-21 05:20] LABS: Hematocrit 29.6 % (42.0-52.0); Hemoglobin 9.8 g/dl (14.0-18.0); Mean Corpuscular HGB Conc 33.1 g/dl (31.0-36.0); Mean Corpuscular Hemoglobin 32.6 pg (27.0-33.0); Mean Corpuscular Volume 98.3 fL (80.0-98.0); Mean Platelet Volume 9.8 fL (9.4-12.4); Platelet Count 510 X10*3/uL (160-400); Red Blood Count 3.01 X10*6/uL (4.60-5.80); Red Cell Distribution Width 15.6 % (11.0-16.0); White Blood Count 8.3 X10*3/uL (4.8-10.8)
[2024-05-21 05:47] LABS: Albumin Level 3.3 g/dL (3.5-5.0); Anion Gap 15 (12-20); Blood Urea Nitrogen 7 mg/dL (9-16); Carbon Dioxide 23 mmol/L (22-29); Chloride 108 mmol/L (96-108); Estimated Glomerular Filt Rate > 60; Glucose Random 148 mg/dL (60-115); Magnesium 1.8 mg/dL (1.6-2.6); Phosphorus 4.2 mg/dL (2.7-4.5); Potassium 3.9 mmol/L (3.3-5.1); Sodium 142 mmol/L (135-145)
[2024-05-21 05:49] LABS: Atypical Lymph Absolute Manual 0.3 x10*3/uL; Atypical Lymphs Percent Manual 4 % (0-6); Band Neutrophils Percent 3 % (3-5); Basophils Abs Manual 0.1 X10*3/uL (0.0-0.2); Basophils Percent Manual 1 % (0-2); Eosinophils Absolute Manual 0.2 X10*3/uL (0.0-0.4); Eosinophils Percent Manual 2 % (0-4); Lymphocytes Absolute Manual 1.3 X10*3/uL (1.2-4.9); Lymphocytes Percent Manual 16 % (20-40); Monocytes Absolute Manual 0.2 X10*3/uL (0.1-1.2); Monocytes Percent Manual 3 % (2-11); Myelocytes Absolute 0.1 X10*/uL; Myelocytes Percent 1 %; Neutrophils Percent Manual 69 % (45-73); Promyelocytes Absolute 0.1 X10*3/uL; Promyelocytes Percent 1 %
[2024-05-21 05:51] LABS: Large Platelet PRESENT; Macrocytosis 1+ (5-14) /OIF; Platelet Estimate INCREASED (NORMAL); Platelet Morphology Comment NOTED; Polychromasia 1+ (0-2) /OIF; RBC Morphology NOTED; Smudge Cells PRESENT; Spherocytes 1+ (0-2) /OIF; Tear Drop Cells 1+ (0-2) /OIF
[2024-05-21 06:05] LABS: Venous Blood Gas Refer to POC result
--- NOTE | 2024-05-21 06:20 | PC.NURSE ---
Assumed care at 1900. Patient remains intubated and sedated, propofol, precedex, and versed gtts running per APR. RASS -2/-3, with breakthrough +2?agitation. Patient BANKS spontaneously, does not follow commands or track speaker. Intermittently kicking legs at staff within reach. SB/SR on tele, HR 50s-70s. Lung sounds diminished in the bases, see vent assessment. TFs restarted prior to shift, working towards goal (see I&O flowsheet). Male external purewick in place, draining strong smelling light patrick urine. Skin remains overall intact with slight blanchable redness to buttocks with pink foam and resolving issues POA (see wound note). Patient's sister Hetal updated by this RN via phone.1-1 sitter at bedside for safety, bed locked in lowest possible position, bed alarm on.?
[2024-05-21] MEDS: 0.9 % Sodium Chloride Flush 3 ML SYRINGE IVFLUSH ×3 (07:31→23:50)
[2024-05-21] MEDS: Heparin Sodium,Porcine 5,000 UNIT/ML VIAL 5000 UNIT SUBCUT ×3 (07:32→23:49)
[2024-05-21] MEDS: Chlorhexidine Gluc Oral Rinse 15 ML MOUTHWASH BUCCAL ×3 (07:47→20:23)
[2024-05-21] MEDS: Valproic Acid Liquid 250 MG/5 ML SOLUTION 500 MG PO ×3 (08:00→20:24)
[2024-05-21] MEDS: Famotidine/PF 20 MG/2 ML VIAL IVPUSH (08:00)
[2024-05-21] MEDS: THIAMINE HCL IV (08:05)
[2024-05-21] MEDS: Folic Acid 2 MG in 0.9 % Sodium Chloride 50 ML 100 MG IV (08:05)
[2024-05-21] MEDS: DEXTROSE 5% IV (08:05)
[2024-05-21] MEDS: vancomycin HCL 1,000 MG in 0.9 % Sodium Chloride 250 ML 270 MG IV ×2 (10:15→22:50)
--- NOTE | 2024-05-21 10:53 | PM.CCPN ---
Subjective Subjective Date of Service: 05/21/24 Interval History: 58-year-old gentleman with underlying alcohol dependence, obesity, diabetes mellitus being admitted for hyperglycemia and alcohol withdrawal on background of acute metabolic acidosis with acute renal failure and hyponatremia likely secondary to beer potomania. Required intubation on 04/30/2024 secondary to high sedative drip requirements for underlying delirium tremens. Extubated on 05/05, however remains with significant toxic encephalopathy requiring Precedex drip. Reintubated on 05/13 secondary to high sedative requirements. No events overnight. Critical Care Time (minutes): 45 Physical Exam Vital Signs: Vital Signs: Last Vital Signs Temp 98.6 F 05/21/24 08:00 Pulse 67 05/21/24 10:00 Resp 25 H 05/21/24 10:00 BP 137/82 05/21/24 10:00 Pulse Ox 91 L 05/21/24 10:00 O2 Del Method Mechanical Ventil ation 05/21/24 10:00 O2 Flow Rate 15 05/13/24 06:00 FiO2 50 05/21/24 10:33 BMI result Body Mass Index 28.2 Const: General: no acute distress and other (Sedated on vent support) Eyes: Sclerae: sclerae normal EOM: EOMs intact bilaterally Neck: Neck: Yes no lymphadenopathy, Yes trachea midline and Yes supple Resp: Auscultation: crackles (Bilateral) Cardio: Rate: regular rate Rhythm: regular rhythm Heart sounds: no gallops, no murmurs and no rubs GI: Palpation (GI): Soft to palpation and Other GI palpation findings present ( Nontender) Auscultation: normal bowel sounds Extrem: General: No clubbing and No cyanosis Objective Data Labs 05/21/24 05:02 05/21/24 05:02 Labs: Laboratory Results - last 24 hr 05/20/24 05/20/24 05/20/24 11:38 17:08 21:00 WBC RBC Hgb Hct MCV MCH MCHC RDW Plt Count MPV Immature Gran % (Auto) Neut % (Auto) Lymph % (Auto) [place] % (Auto) Eos % (Auto) Baso % (Auto) Lymph # (Auto) [place] # (Auto) Eos # (Auto) Baso # (Auto) Abs Immat Gran (auto) Absolute Neuts (auto) Absolute Nucleated RBC Nucleated RBC % (auto) Neutrophils % (Manual) Band Neutrophils % Lymphocytes % (Manual) Atypical Lymphs % (Man) Monocytes % (Manual) Eosinophils % (Manual) Basophils % (Manual) Myelocytes % Promyelocytes % Abs Neuts (Manual) Lymphocytes # (Manual) Atyp Lymphs # (Manual) Monocytes # (Manual) Eosinophils # (Manual) Basophils # (Manual) Myelocytes # Promyelocytes # Smudge Cells Platelet Estimate Large Platelets Plt Morphology Comment RBC Morphology Polychromasia Macrocytosis Spherocytes Tear Drop Cells VBG pH VBG pCO2 VBG pO2 VBG HCO3 VBG O2 Saturation VBG Base Excess Sodium Potassium Chloride Carbon Dioxide Anion Gap BUN Creatinine Estim Creat Clear Calc Estimated GFR POC Glucose 155 H 122 H Random Glucose Calcium Phosphorus Magnesium Albumin Random Vancomycin 18.2 05/20/24 05/21/24 23:49 05:02 WBC 8.3 RBC 3.01 L Hgb 9.8 L Hct 29.6 L MCV 98.3 H D MCH 32.6 MCHC 33.1 RDW 15.6 Plt Count 510 H MPV 9.8 Immature Gran % (Auto) Cancelled Neut % (Auto) Cancelled Lymph % (Auto) Cancelled [place] % (Auto) Cancelled Eos % (Auto) Cancelled Baso % (Auto) Cancelled Lymph # (Auto) Cancelled [place] # (Auto) Cancelled Eos # (Auto) Cancelled Baso # (Auto) Cancelled Abs Immat Gran (auto) Cancelled Absolute Neuts (auto) Cancelled Absolute Nucleated RBC 0.000 Nucleated RBC % (auto) 0.0 Neutrophils % (Manual) 69 Band Neutrophils % 3 Lymphocytes % (Manual) 16 L Atypical Lymphs % (Man) 4 Monocytes % (Manual) 3 Eosinophils % (Manual) 2 Basophils % (Manual) 1 Myelocytes % 1 Promyelocytes % 1 Abs Neuts (Manual) 6.0 Lymphocytes # (Manual) 1.3 Atyp Lymphs # (Manual) 0.3 Monocytes # (Manual) 0.2 Eosinophils # (Manual) 0.2 Basophils # (Manual) 0.1 Myelocytes # 0.1 Promyelocytes # 0.1 Smudge Cells PRESENT Platelet Estimate INCREASED Large Platelets PRESENT Plt Morphology Comment NOTED RBC Morphology NOTED Polychromasia 1+ (0-2) Macrocytosis 1+ (5-14) Spherocytes 1+ (0-2) Tear Drop Cells 1+ (0-2) VBG pH 7.47 H VBG pCO2 35 VBG pO2 50 VBG HCO3 26 VBG O2 Saturation 79.0 VBG Base Excess 3.3 Sodium 142 Potassium 3.9 Chloride 108 Carbon Dioxide 23 Anion Gap 15 BUN 7 L Creatinine 0.76 Estim Creat Clear Calc 108.0 Estimated GFR > 60 POC Glucose 145 H Random Glucose 148 H Calcium 9.0 Phosphorus 4.2 Magnesium 1.8 Albumin 3.3 L Random Vancomycin Microbiology Microbiology Results: Microbiology 05/05/24 07:50 Tracheal Aspirate Gram Stain - Final 05/05/24 07:50 Tracheal Aspirate Sputum Culture - Final Methicillin Res Staph Aureus 04/29/24 10:33 Blood - Venous Blood Culture - Final No growth after 5 days. 04/29/24 10:33 Blood - Venous Blood Culture - Final No growth after 5 days. Progress Note: A&P Assessment and plan (1) Aspiration pneumonia: Status: Acute (2) Acute respiratory failure with hypoxia: Status: Acute (3) Encephalopathy: Status: Acute Plan Assessment: 58-year-old gentleman being admitted with alcohol withdrawal further complicated by acute hyponatremia likely secondary to beer potomania, acute renal failure with metabolic acidosis and hypoglycemia Plan: Neuro: Alcohol withdrawal, still with significant encephalopathy, continue to titrate off sedative drips as tolerated improving albeit slowly. MRI brain with no acute parenchymal findings. Trying to kick staff with sedation vacation. Continue valproic acid and Seroquel. Cardiac: No acute issues. Pulmonary: Initially required intubation for high-dose sedative drips and also hypoxia secondary to pulmonary aspiration. Extubated 05/05/2024. Required re-intubation on 05/13/2024 secondary to high sedative treatment requirements, continue to titrate off as tolerated. Now with MRSA aspiration pneumonia. Renal: No acute issues. Endo: No acute issues. Underlying diabetes mellitus, continue sliding scale insulin. Underlying hypothyroidism, continue Synthroid. GI: No acute issues. ID: Aspiration MRSA pneumonia, continue vancomycin. Heme/Onc: No acute issues. Psych: No acute issues. Miscellaneous: No acute issues. Prophylaxis: Heparin, famotidine Diet: Tube feeds Critical care time: 45 minutes Quality Stroke Does the patient have a stroke diagnosis?: No VTE Prior VTE?: No VTE Risk Level:: Medical - moderate - high VTE Device Contraindication: Treatment Not Indicated VTE Drug Contraindication: N/A - Med Ordered
[2024-05-21 12:01] LABS: Glucose, Whole Blood 169 mg/dL (60-115)
[2024-05-21] MEDS: Insulin Lispro 100 UNIT/ML 3 ML VIAL SUBCUT (12:17)
[2024-05-21] MEDS: Cisatracurium Besylate 20 MG/10 ML VIAL IVPUSH (14:57)
[2024-05-21 17:21] LABS: Glucose, Whole Blood 131 mg/dL (60-115)
--- NOTE | 2024-05-21 17:26 | PC.NURSE ---
Assumed care at 0700. 1:1 sitter in room for pt and staff safety. Pt remains intubated and sedated. Per MD, propofol stopped at approx 1000. Pt placed on PSV of 10/8 at 50% at 1030. Pt unable to follow commands. At approx 1100, increased agitation, kicking towards staff. Propofol restarted at approx 1110. Vent settings adjusted by RT. Pt taken to CT at approx 1500. See MAR for medication details. Pt repositioned q2hr.
[2024-05-21] MEDS: Albumin Human 25 % 100 ML 133.33 ML IV ×2 (19:41→20:33)
[2024-05-21] MEDS: QUEtiapine Fumarate 100 MG TABLET PO (20:24)
[2024-05-21] MEDS: Furosemide 200 MG in 0.9 % Sodium Chloride 80 ML IVCONT (20:33)
[2024-05-21] MEDS: Midazolam HCl/NS 50 MG/50 ML PLAST..BAG IVCONT (21:07)
[2024-05-21 21:29] LABS: Vancomycin Random 17.9 mcg/mL (15-20)
[2024-05-22] VITALS (44 sets, daily range): BP systolic 81–177; BP diastolic 45–104; PULSE 55–130; RESP 12–25; TEMP 34.7–37.3; O2SAT 90–95; BMI 28.1
[2024-05-22 00:01] LABS: Glucose, Whole Blood 165 mg/dL (60-115)
[2024-05-22] MEDS: Insulin Lispro 100 UNIT/ML 3 ML VIAL SUBCUT (00:01)
[2024-05-22] MEDS: propofoL 200 MG/20 ML VIAL 50 MG IVPUSH ×2 (00:07→10:53)
[2024-05-22] MEDS: Midazolam HCl 2 MG/2 ML VIAL 4 MG IVPUSH ×5 (02:10→19:13)
[2024-05-22] MEDS: dexmedeTOMIDine HCL/NS 400 MCG/100 ML PLAST..BAG 37.2 MCG IVCONT ×8 (02:46→21:30)
[2024-05-22] MEDS: propofoL 1,000 MG/100 ML VIAL 24.6 MG IVCONT ×6 (03:45→23:50)
[2024-05-22] MEDS: Piperacillin Sodium/Tazobactam 4.5 GM in 0.9 % Sodium Chloride 100 ML IV ×4 (04:28→21:35)
[2024-05-22 04:41] LABS: VBG Base Excess 7.3 mmol/L; VBG HCO3 31 mmol/L (22-26); VBG pCO2 43 mmHg; VBG pH 7.47 (7.32-7.43); VBG pO2 49 mmHg
[2024-05-22] MEDS: Levothyroxine Sodium 100 MCG/5 ML VIAL IVPUSH (05:06)
[2024-05-22 05:13] LABS: Glucose, Whole Blood 143 mg/dL (60-115)
[2024-05-22 05:28] LABS: Alanine Aminotransferase 11 U/L (0-40); Albumin Level 3.8 g/dL (3.5-5.0); Alkaline Phosphatase 122 U/L (39-117); Anion Gap 20 (12-20); Aspartate Amino Transferase 39 U/L (5-37); Bilirubin Total 0.4 mg/dL (0.0-1.0); Blood Urea Nitrogen 7 mg/dL (9-16); Calcium 9.3 mg/dL (8.4-10.2); Carbon Dioxide 23 mmol/L (22-29); Chloride 103 mmol/L (96-108); Creatinine Clr Calc Pharmacy 106.2; Estimated Glomerular Filt Rate > 60; Glucose Random 153 mg/dL (60-115); Magnesium 1.8 mg/dL (1.6-2.6); Potassium 5.3 mmol/L (3.3-5.1); Sodium 141 mmol/L (135-145); Total Protein 7.8 g/dL (6.5-8.0)
--- NOTE | 2024-05-22 06:08 | PC.NURSE ---
Assumed care at 190.? Assumed care at 190. Patient remains intubated and sedated, Propofol, precedex and versed gtts running per APR. RASS -2/-3, with breakthrough?agitation of +1/+2 when stimulated. Patient BANKS spontaneously, does not follow commands or track speaker. Thrashes head side to side when awake. SB/SR on tele, HR 50s-70s. Lung sounds diminished to the bases, see vent assessment. At approx 0400, patient hypoxic and saturating in mid-80s. ROOFER HELPER to bedside to evaluate?and lavage with marginal success. RT called to bedside, vent settings adjusted and lavage repeated, see assessment. TFs infusing at goal, see assessment. Male external purewick in place, draining strong-smelling pale yellow urine. Lasix gtt running per APR. Skin overall warm and intact, prophylactic foam to coccyx clean dry and intact. Bed locked in lowest possible position, bed alarm on.
[2024-05-22 06:15] LABS: Venous Blood Gas Refer to POC result
[2024-05-22] MEDS: 0.9 % Sodium Chloride Flush 3 ML SYRINGE IVFLUSH ×2 (07:20→15:18)
[2024-05-22] MEDS: Heparin Sodium,Porcine 5,000 UNIT/ML VIAL 5000 UNIT SUBCUT ×2 (07:41→15:19)
[2024-05-22] MEDS: Chlorhexidine Gluc Oral Rinse 15 ML MOUTHWASH BUCCAL ×3 (08:04→19:54)
[2024-05-22] MEDS: Famotidine/PF 20 MG/2 ML VIAL IVPUSH (08:05)
[2024-05-22] MEDS: Valproic Acid Liquid 250 MG/5 ML SOLUTION 500 MG PO ×3 (08:05→19:54)
[2024-05-22] MEDS: hydrALAZINE HCl 20 MG/ML VIAL IVPUSH (08:06)
[2024-05-22] MEDS: DEXTROSE 5% IV (08:08)
[2024-05-22] MEDS: THIAMINE HCL IV (08:08)
[2024-05-22 08:12] LABS: Hematocrit 32.7 % (42.0-52.0); Hemoglobin 10.6 g/dl (14.0-18.0); Mean Corpuscular HGB Conc 32.4 g/dl (31.0-36.0); Mean Corpuscular Hemoglobin 32.4 pg (27.0-33.0); Mean Platelet Volume 9.8 fL (9.4-12.4); Platelet Count 487 X10*3/uL (160-400); Red Blood Count 3.27 X10*6/uL (4.60-5.80); Red Cell Distribution Width 15.3 % (11.0-16.0); White Blood Count 8.2 X10*3/uL (4.8-10.8)
[2024-05-22 08:26] LABS: Anion Gap 17 (12-20); Blood Urea Nitrogen 6 mg/dL (9-16); Calcium 9.7 mg/dL (8.4-10.2); Carbon Dioxide 25 mmol/L (22-29); Chloride 104 mmol/L (96-108); Creatinine Clr Calc Pharmacy 102.5; Estimated Glomerular Filt Rate > 60; Glucose Random 172 mg/dL (60-115); Potassium 3.6 mmol/L (3.3-5.1); Sodium 142 mmol/L (135-145)
[2024-05-22 08:49] LABS: Band Neutrophils Percent 3 % (3-5); Basophils Abs Manual 0.1 X10*3/uL (0.0-0.2); Basophils Percent Manual 1 % (0-2); Eosinophils Absolute Manual 0.2 X10*3/uL (0.0-0.4); Eosinophils Percent Manual 3 % (0-4); Lymphocytes Absolute Manual 1.1 X10*3/uL (1.2-4.9); Lymphocytes Percent Manual 14 % (20-40); Monocytes Absolute Manual 0.3 X10*3/uL (0.1-1.2); Monocytes Percent Manual 4 % (2-11); Myelocytes Absolute 0.2 X10*/uL; Myelocytes Percent 2 %; Neutrophils Absolute Manual 6.2 X10*3/uL (2.0-8.3); Neutrophils Percent Manual 72 % (45-73); Promyelocytes Absolute 0.1 X10*3/uL; Promyelocytes Percent 1 %
[2024-05-22 08:55] LABS: Large Platelet PRESENT; Macrocytosis 1+ (5-14) /OIF; Platelet Estimate INCREASED (NORMAL); Platelet Morphology Comment NOTED
[2024-05-22 08:56] LABS: Ovalocytes 1+ (5-14) /OIF; Spherocytes 1+ (0-2) /OIF; Tear Drop Cells 2+ (3-5) /OIF
[2024-05-22 08:57] LABS: Smudge Cells PRESENT
[2024-05-22 08:58] LABS: RBC Morphology NOTED
[2024-05-22] MEDS: Folic Acid 2 MG in 0.9 % Sodium Chloride 50 ML 100 MG IV (09:06)
[2024-05-22] MEDS: vancomycin HCL 1,000 MG in 0.9 % Sodium Chloride 250 ML 270 MG IV ×2 (10:17→22:06)
--- NOTE | 2024-05-22 10:44 | PM.CCPN ---
Subjective Subjective Date of Service: 05/22/24 Interval History: 58-year-old gentleman with underlying alcohol dependence, obesity, diabetes mellitus being admitted for hyperglycemia and alcohol withdrawal on background of acute metabolic acidosis with acute renal failure and hyponatremia likely secondary to beer potomania. Required intubation on 04/30/2024 secondary to high sedative drip requirements for underlying delirium tremens. Extubated on 05/05, however remains with significant toxic encephalopathy requiring Precedex drip. Reintubated on 05/13 secondary to high sedative requirements. CT chest on 05/21/2024 with small bilateral pleural effusions, but bibasilar atelectasis. No events overnight. Critical Care Time (minutes): 45 Physical Exam Vital Signs: Vital Signs: Last Vital Signs Temp 97.1 F 05/22/24 08:00 Pulse 85 05/22/24 09:00 Resp 18 05/22/24 09:00 BP 132/79 05/22/24 09:00 Pulse Ox 93 05/22/24 09:00 O2 Del Method Mechanical Ventil ation 05/22/24 09:00 O2 Flow Rate 15 05/13/24 06:00 FiO2 80 05/22/24 09:00 BMI result Body Mass Index 28.1 Const: General: no acute distress and other (Sedated on ventilatory support, very agitated with pressure support trial) Eyes: Sclerae: sclerae normal EOM: EOMs intact bilaterally Neck: Neck: Yes no lymphadenopathy, Yes trachea midline and Yes supple Resp: Auscultation: crackles (Bibasilar) Cardio: Rate: regular rate Rhythm: regular rhythm Heart sounds: no gallops, no murmurs and no rubs GI: Palpation (GI): Soft to palpation and Other GI palpation findings present ( Nontender) Auscultation: normal bowel sounds Extrem: General: Yes no pedal edema, No clubbing and No cyanosis Objective Data Labs 05/22/24 07:59 05/22/24 07:59 Labs: Laboratory Results - last 24 hr 05/21/24 05/21/24 05/21/24 11:57 17:17 21:01 WBC RBC Hgb Hct MCV MCH MCHC RDW Plt Count MPV Immature Gran % (Auto) Neut % (Auto) Lymph % (Auto) [place] % (Auto) Eos % (Auto) Baso % (Auto) Lymph # (Auto) [place] # (Auto) Eos # (Auto) Baso # (Auto) Abs Immat Gran (auto) Absolute Neuts (auto) Absolute Nucleated RBC Nucleated RBC % (auto) Neutrophils % (Manual) Band Neutrophils % Lymphocytes % (Manual) Monocytes % (Manual) Eosinophils % (Manual) Basophils % (Manual) Myelocytes % Promyelocytes % Abs Neuts (Manual) Lymphocytes # (Manual) Monocytes # (Manual) Eosinophils # (Manual) Basophils # (Manual) Myelocytes # Promyelocytes # Smudge Cells Platelet Estimate Large Platelets Plt Morphology Comment RBC Morphology Macrocytosis Spherocytes Tear Drop Cells Ovalocytes VBG pH VBG pCO2 VBG pO2 VBG HCO3 VBG O2 Saturation VBG Base Excess Sodium Potassium Chloride Carbon Dioxide Anion Gap BUN Creatinine Estim Creat Clear Calc Estimated GFR POC Glucose 169 H 131 H Random Glucose Calcium Phosphorus Magnesium Total Bilirubin AST ALT Alkaline Phosphatase Total Protein Albumin Random Vancomycin 17.9 05/21/24 05/22/24 05/22/24 23:56 04:35 04:36 WBC RBC Hgb Hct MCV MCH MCHC RDW Plt Count MPV Immature Gran % (Auto) Neut % (Auto) Lymph % (Auto) [place] % (Auto) Eos % (Auto) Baso % (Auto) Lymph # (Auto) [place] # (Auto) Eos # (Auto) Baso # (Auto) Abs Immat Gran (auto) Absolute Neuts (auto) Absolute Nucleated RBC Nucleated RBC % (auto) Neutrophils % (Manual) Band Neutrophils % Lymphocytes % (Manual) Monocytes % (Manual) Eosinophils % (Manual) Basophils % (Manual) Myelocytes % Promyelocytes % Abs Neuts (Manual) Lymphocytes # (Manual) Monocytes # (Manual) Eosinophils # (Manual) Basophils # (Manual) Myelocytes # Promyelocytes # Smudge Cells Platelet Estimate Large Platelets Plt Morphology Comment RBC Morphology Macrocytosis Spherocytes Tear Drop Cells Ovalocytes VBG pH 7.47 H VBG pCO2 43 VBG pO2 49 VBG HCO3 31 H VBG O2 Saturation 78.0 VBG Base Excess 7.3 Sodium 141 Potassium 5.3 H D Chloride 103 Carbon Dioxide 23 Anion Gap 20 BUN 7 L Creatinine 0.84 Estim Creat Clear Calc 106.2 Estimated GFR > 60 POC Glucose 165 H Random Glucose 153 H Calcium 9.3 Phosphorus 5.0 H Magnesium 1.8 Total Bilirubin 0.4 AST 39 H ALT 11 Alkaline Phosphatase 122 H Total Protein 7.8 Albumin 3.8 Random Vancomycin 05/22/24 05/22/24 05:05 07:59 WBC 8.2 RBC 3.27 L Hgb 10.6 L Hct 32.7 L MCV 100.0 H MCH 32.4 MCHC 32.4 RDW 15.3 Plt Count 487 H MPV 9.8 Immature Gran % (Auto) Cancelled Neut % (Auto) Cancelled Lymph % (Auto) Cancelled [place] % (Auto) Cancelled Eos % (Auto) Cancelled Baso % (Auto) Cancelled Lymph # (Auto) Cancelled [place] # (Auto) Cancelled Eos # (Auto) Cancelled Baso # (Auto) Cancelled Abs Immat Gran (auto) Cancelled Absolute Neuts (auto) Cancelled Absolute Nucleated RBC 0.000 Nucleated RBC % (auto) 0.0 Neutrophils % (Manual) 72 Band Neutrophils % 3 Lymphocytes % (Manual) 14 L Monocytes % (Manual) 4 Eosinophils % (Manual) 3 Basophils % (Manual) 1 Myelocytes % 2 Promyelocytes % 1 Abs Neuts (Manual) 6.2 Lymphocytes # (Manual) 1.1 L Monocytes # (Manual) 0.3 Eosinophils # (Manual) 0.2 Basophils # (Manual) 0.1 Myelocytes # 0.2 Promyelocytes # 0.1 Smudge Cells PRESENT Platelet Estimate INCREASED Large Platelets PRESENT Plt Morphology Comment NOTED RBC Morphology NOTED Macrocytosis 1+ (5-14) Spherocytes 1+ (0-2) Tear Drop Cells 2+ (3-5) Ovalocytes 1+ (5-14) VBG pH VBG pCO2 VBG pO2 VBG HCO3 VBG O2 Saturation VBG Base Excess Sodium 142 Potassium 3.6 D Chloride 104 Carbon Dioxide 25 Anion Gap 17 BUN 6 L Creatinine 0.87 Estim Creat Clear Calc 102.5 Estimated GFR > 60 POC Glucose 143 H Random Glucose 172 H Calcium 9.7 Phosphorus Magnesium Total Bilirubin AST ALT Alkaline Phosphatase Total Protein Albumin Random Vancomycin Microbiology Microbiology Results: Microbiology 05/05/24 07:50 Tracheal Aspirate Gram Stain - Final 05/05/24 07:50 Tracheal Aspirate Sputum Culture - Final Methicillin Res Staph Aureus 04/29/24 10:33 Blood - Venous Blood Culture - Final No growth after 5 days. 04/29/24 10:33 Blood - Venous Blood Culture - Final No growth after 5 days. Progress Note: A&P Assessment and plan (1) Delirium tremens: Status: Acute (2) Encephalopathy: Status: Acute (3) Aspiration pneumonia: Status: Acute (4) Acute respiratory failure with hypoxia: Status: Acute Plan Assessment: 58-year-old gentleman being admitted with alcohol withdrawal further complicated by acute hyponatremia likely secondary to beer potomania, acute renal failure with metabolic acidosis and hypoglycemia Plan: Neuro: Alcohol withdrawal, still with significant encephalopathy, continue to titrate off sedative drips as tolerated improving albeit slowly. MRI brain with no acute parenchymal findings. Trying to kick staff with sedation vacation. Continue valproic acid and Seroquel. Cardiac: No acute issues. Pulmonary: Initially required intubation for high-dose sedative drips and also hypoxia secondary to pulmonary aspiration. Extubated 05/05/2024. Required re-intubation on 05/13/2024 secondary to high sedative treatment requirements, continue to titrate off as tolerated. Now with MRSA aspiration pneumonia. CT chest on 05/21/2024 with small bilateral pleural effusions and bibasilar atelectasis. Renal: No acute issues. Endo: No acute issues. Underlying diabetes mellitus, continue sliding scale insulin. Underlying hypothyroidism, continue Synthroid. GI: No acute issues. ID: Aspiration MRSA pneumonia, continue vancomycin. Heme/Onc: No acute issues. Psych: No acute issues. Miscellaneous: No acute issues. Prophylaxis: Heparin, famotidine Diet: Tube feeds Critical care time: 45 minutes Quality Stroke Does the patient have a stroke diagnosis?: No VTE Prior VTE?: No VTE Risk Level:: Medical - moderate - high VTE Device Contraindication: Treatment Not Indicated VTE Drug Contraindication: N/A - Med Ordered
[2024-05-22 11:59] LABS: Glucose, Whole Blood 137 mg/dL (60-115)
[2024-05-22 11:59] LABS: Valproate 36.9 mcg/mL (50.0-100.0)
[2024-05-22] MEDS: Ketamine HCl/NS 50 MG/5 ML SYRINGE 100 MG IVPUSH (14:30)
[2024-05-22] MEDS: fentaNYL citrate/PF 100 MCG/2 ML VIAL IVPUSH ×2 (17:34→19:57)
[2024-05-22 17:54] LABS: Glucose, Whole Blood 150 mg/dL (60-115)
[2024-05-22] MEDS: Norepinephrine Bitartrate/D5W 8 MG/250 ML PLAST..BAG 7.69 MG IVCONT (18:27)
--- NOTE | 2024-05-22 18:38 | PC.NURSE ---
Assumed care at 0700. Pt intubated with sedative drips running. Occasionally breaks through sedation to lift head off pillow, move legs, and pull at restraints. Pt attempted to kick staff. Lasix drip continues to infuse; male purewick attached with apparent success. At 1149, ET tube noted to be at 19cm. RT alerted. Tierra replaced and tube repositioned to 23cm by RTs. Skin under tierra noted to be intact. As shift progressed, pt?s sedation breakthroughs increased in duration. At approx 1210, pt?s visiting friend stated that? pt is able to nod yes/no to questions. Per visitor request, pt placed on bedpan. Pt indeed able to answer questions appropriately with nods. Pt placed on PSV of 10/5 @ 70% fio2 at 1330. At approx 1420, pt?s HR & RR increased, vent adjusted by RT. Pt nodded when asked if he was tired. Pt placed back on ACVC+ by RT. See MAR and vent assessments for medication details. At approx 1700, pt complained of pain, MD to order medication. Decrease in BPs noted at approx 1800. MD aware. Pt remains intubated and on sedative drips. Repositioned q2hr.
[2024-05-22] MEDS: QUEtiapine Fumarate 100 MG TABLET PO (19:54)
[2024-05-22] MEDS: Midazolam HCl/NS 50 MG/50 ML PLAST..BAG IVCONT (21:32)
[2024-05-22 21:51] LABS: Anion Gap 16 (12-20); Blood Urea Nitrogen 6 mg/dL (9-16); Calcium 8.8 mg/dL (8.4-10.2); Carbon Dioxide 26 mmol/L (22-29); Chloride 101 mmol/L (96-108); Creatinine Clr Calc Pharmacy 87.4; Estimated Glomerular Filt Rate > 60; Glucose Random 171 mg/dL (60-115); Magnesium 1.4 mg/dL (1.6-2.6); Phosphorus 5.3 mg/dL (2.7-4.5); Potassium 3.4 mmol/L (3.3-5.1); Sodium 140 mmol/L (135-145)
[2024-05-22] MEDS: Magnesium Sulfate/H2O 2 GM/50 ML PIGGYBACK IV (22:03)
[2024-05-22] MEDS: Potassium Chloride Packet 20 MEQ PACKET 40 MEQ OG-TUBE (22:04)
[2024-05-22 23:42] LABS: Glucose, Whole Blood 190 mg/dL (60-115)
[2024-05-23] VITALS (42 sets, daily range): BP systolic 80–169; BP diastolic 46–106; PULSE 54–109; RESP 12–24; TEMP 34.8–36.8; O2SAT 88–94; BMI 27.3
[2024-05-23] MEDS: 0.9 % Sodium Chloride Flush 3 ML SYRINGE IVFLUSH ×4 (00:11→23:43)
[2024-05-23] MEDS: Insulin Lispro 100 UNIT/ML 3 ML VIAL SUBCUT ×2 (00:14→05:26)
[2024-05-23] MEDS: Heparin Sodium,Porcine 5,000 UNIT/ML VIAL 5000 UNIT SUBCUT ×4 (00:14→23:43)
[2024-05-23] MEDS: dexmedeTOMIDine HCL/NS 400 MCG/100 ML PLAST..BAG 37.2 MCG IVCONT ×9 (00:19→22:55)
[2024-05-23] MEDS: fentaNYL citrate/PF 100 MCG/2 ML VIAL IVPUSH ×5 (00:35→18:10)
[2024-05-23] MEDS: Furosemide 200 MG in 0.9 % Sodium Chloride 80 ML IVCONT (00:44)
[2024-05-23] MEDS: propofoL 1,000 MG/100 ML VIAL 24.6 MG IVCONT ×2 (02:45→06:39)
[2024-05-23] MEDS: Piperacillin Sodium/Tazobactam 4.5 GM in 0.9 % Sodium Chloride 100 ML IV ×4 (03:02→22:20)
[2024-05-23] MEDS: Levothyroxine Sodium 100 MCG/5 ML VIAL IVPUSH (05:21)
[2024-05-23 05:28] LABS: Glucose, Whole Blood 194 mg/dL (60-115)
[2024-05-23 05:38] LABS: VBG Base Excess 8.1 mmol/L; VBG HCO3 31 mmol/L (22-26); VBG pCO2 38 mmHg; VBG pH 7.52 (7.32-7.43); VBG pO2 37 mmHg
[2024-05-23 05:46] LABS: Venous Blood Gas Refer to POC result
--- NOTE | 2024-05-23 05:53 | PC.NURSE ---
Assumed care at 1900. Patient remains intubated and sedated, propofol, precedex, and versed gtts running per APR. Patient notably more awake, moving and thrashing in bed,?RASS +2. Patient able to track speaker but does not nod or shake head to yes/no questions or follow commands. PRN versed and fentanyl given (see MAR) with good effect. SR/SB on tele, HR 50s-70s. Levophed gtt running per APR for BP support, MAP goal > 65. Patient remains vented, see vent assessment, lungs diminished in the bases. Abdomen soft and round, TF infusing at goal. External male purewick in place, draining clear yellow urine. Lasix gtt running per APR. Skin warm and dry, pink foam to coccyx clean and intact. Abrasions present on arrival with evidence of healing. Patient repositioned as tolerated, bed locked in lowest position, bed alarm on.
[2024-05-23 06:05] LABS: Hematocrit 29.7 % (42.0-52.0); Hemoglobin 9.8 g/dl (14.0-18.0); Mean Corpuscular Hemoglobin 33.1 pg (27.0-33.0); Mean Corpuscular Volume 100.3 fL (80.0-98.0); Mean Platelet Volume 10.2 fL (9.4-12.4); NRBC Pct Auto 0.2 /100WBC (0.0-0.2); PLT CLUMP 1; Red Blood Count 2.96 X10*6/uL (4.60-5.80); Red Cell Distribution Width 15.5 % (11.0-16.0)
[2024-05-23 06:06] LABS: White Blood Count 9.3 X10*3/uL (4.8-10.8)
[2024-05-23 06:19] LABS: Alanine Aminotransferase 8 U/L (0-40); Albumin Level 3.5 g/dL (3.5-5.0); Alkaline Phosphatase 108 U/L (39-117); Anion Gap 17 (12-20); Aspartate Amino Transferase 21 U/L (5-37); Bilirubin Total 0.4 mg/dL (0.0-1.0); Blood Urea Nitrogen 7 mg/dL (9-16); Calcium 8.9 mg/dL (8.4-10.2); Carbon Dioxide 26 mmol/L (22-29); Chloride 101 mmol/L (96-108); Creatinine Clr Calc Pharmacy 82.1; Estimated Glomerular Filt Rate > 60; Glucose Random 204 mg/dL (60-115); Magnesium 1.9 mg/dL (1.6-2.6); Phosphorus 5.1 mg/dL (2.7-4.5); Potassium 3.8 mmol/L (3.3-5.1); Sodium 140 mmol/L (135-145); Total Protein 6.7 g/dL (6.5-8.0)
[2024-05-23 06:31] LABS: Platelet Count 543 X10*3/uL (160-400)
[2024-05-23 06:34] LABS: Band Neutrophils Percent 3 % (3-5); Basophils Abs Manual 0.1 X10*3/uL (0.0-0.2); Basophils Percent Manual 1 % (0-2); Eosinophils Absolute Manual 0.4 X10*3/uL (0.0-0.4); Eosinophils Percent Manual 4 % (0-4); Lymphocytes Absolute Manual 0.8 X10*3/uL (1.2-4.9); Lymphocytes Percent Manual 9 % (20-40); Metamyelocytes Absolute 0.3 X10*3/uL; Metamyelocytes Percent 3 %; Monocytes Absolute Manual 0.5 X10*3/uL (0.1-1.2); Monocytes Percent Manual 5 % (2-11); Myelocytes Absolute 0.1 X10*/uL; Myelocytes Percent 1 %; Neutrophils Absolute Manual 7.2 X10*3/uL (2.0-8.3); Neutrophils Percent Manual 74 % (45-73)
[2024-05-23 06:36] LABS: Macrocytosis 1+ (5-14) /OIF; Platelet Estimate INCREASED (NORMAL); Platelet Morphology Comment NORMAL; Polychromasia 1+ (0-2) /OIF; RBC Morphology NOTED; Spherocytes 1+ (0-2) /OIF
[2024-05-23] MEDS: Midazolam HCl 2 MG/2 ML VIAL 4 MG IVPUSH ×2 (07:23→15:33)
[2024-05-23] MEDS: Folic Acid 2 MG in 0.9 % Sodium Chloride 50 ML 90 MG IV (08:27)
[2024-05-23] MEDS: DEXTROSE 5% IV (08:27)
[2024-05-23] MEDS: Chlorhexidine Gluc Oral Rinse 15 ML MOUTHWASH BUCCAL ×3 (08:27→21:08)
[2024-05-23] MEDS: THIAMINE HCL IV (08:27)
[2024-05-23] MEDS: Valproic Acid Liquid 250 MG/5 ML SOLUTION 500 MG PO ×3 (08:27→21:08)
[2024-05-23 09:20] LABS: Vancomycin Random 20.6 mcg/mL (15-20)
--- NOTE | 2024-05-23 09:27 | HE.PHANOTE ---
Re: Tessao Pt has good renal function. Trough returned at 20.6. Dose was held for 6 hours to resume at 1700, dose reduced to 750mg q12h, with predicted AUC 455, predicted trough 15.6. Next trough to be drawn 05/24 @ 1500.
--- NOTE | 2024-05-23 10:18 | MHC.SLORD ---
Speech Language Pathology Order Status: Pt intubated, CHARCO[employer] UN[employer]ER to consult as indicated s/p extubation.
--- NOTE | 2024-05-23 10:40 | MHC.CM.PN ---
Pt remains on daily PSV and sedation vacation trials: continues to become agitated: New order for Klonopin: Pt will need formal PT and psych evals for determination of d/c disposition. CM to follow
[2024-05-23] MEDS: Famotidine/PF 20 MG/2 ML VIAL IVPUSH (11:07)
[2024-05-23] MEDS: clonazePAM 0.5 MG TABLET PO ×3 (11:09→21:08)
--- NOTE | 2024-05-23 11:48 | MHC.CLN ---
F/U PT REMAINS INTUBATED AND SEDATED DISCUSSED AT ROUNDS WITH MD RECEIVING GLUCERNA AT MAX GOAL RATE 60ML/HR WITH 240ML FREE WATER FLUSHES Q 6 HRS PROVIDES 1440KCALS (2089 TOTAL KCALS WITH SEDATION; 28KCALS/KG BASED ON IBW), 60G PROTEIN (.8G/KG), 2188ML TOTAL WATER FROM FORMULA AND FLUSHES (29ML/KG) CONTINUE TO MONITOR TOLERANCE AND LYTES
--- NOTE | 2024-05-23 12:15 | PM.CCPN ---
Subjective Subjective Date of Service: 05/23/24 Interval History: continues to be on ventilator support On propofol and fentanyl for sedation and analgesia On Lasix drip Mental status better, following commands upon sedation vacation Critical Care Time (minutes): 30 Physical Exam Vital Signs: Vital Signs: Last Vital Signs Temp 97.2 F 05/23/24 08:00 Pulse 86 05/23/24 11:26 Resp 16 05/23/24 11:00 BP 166/100 H 05/23/24 11:26 Pulse Ox 88 L 05/23/24 11:00 O2 Del Method Mechanical Ventil ation 05/23/24 11:00 O2 Flow Rate 15 05/13/24 06:00 FiO2 70 05/23/24 11:00 BMI result Body Mass Index 27.3 General: Elderly male lying in the bed, connected to the ventilator, calm and responding to questions Nutritional Appearance: well nourished and overweight Eyes: appearance normal, both eyes and all related structures; Alignment and Position: alignment normal and position normal Neck: No lymphadenopathy, no thyromegaly Resp: bilateral air entry equal, occasional added sounds present Cardio: Regular rate, regular rhythm; Heart sounds: S1 normal heart sound present and S2 normal heart sound present GI: soft, nontender, no guarding, no hepatosplenomegaly : bladder normal to inspection, bladder normal to palpation, no renal angle tenderness Skin: no rashes or lesions noted and elasticity normal Neuro: Follows commands, moves all extremities Objective Data Labs 05/23/24 05:30 05/23/24 05:30 Labs: Laboratory Results - last 24 hr 05/22/24 05/22/24 05/22/24 17:41 21:22 23:37 WBC RBC Hgb Hct MCV MCH MCHC RDW Plt Count MPV Immature Gran % (Auto) Neut % (Auto) Lymph % (Auto) [place] % (Auto) Eos % (Auto) Baso % (Auto) Lymph # (Auto) [place] # (Auto) Eos # (Auto) Baso # (Auto) Abs Immat Gran (auto) Absolute Neuts (auto) Absolute Nucleated RBC Nucleated RBC % (auto) Neutrophils % (Manual) Band Neutrophils % Lymphocytes % (Manual) Monocytes % (Manual) Eosinophils % (Manual) Basophils % (Manual) Metamyelocytes % Myelocytes % Abs Neuts (Manual) Lymphocytes # (Manual) Monocytes # (Manual) Eosinophils # (Manual) Basophils # (Manual) Metamyelocytes # Myelocytes # Platelet Estimate Plt Morphology Comment RBC Morphology Polychromasia Macrocytosis Spherocytes VBG pH VBG pCO2 VBG pO2 VBG HCO3 VBG O2 Saturation VBG Base Excess Sodium 140 Potassium 3.4 Chloride 101 Carbon Dioxide 26 Anion Gap 16 BUN 6 L Creatinine 1.02 Estim Creat Clear Calc 87.4 Estimated GFR > 60 POC Glucose 150 H 190 H Random Glucose 171 H Calcium 8.8 D Phosphorus 5.3 H Magnesium 1.4 L* Total Bilirubin AST ALT Alkaline Phosphatase Total Protein Albumin Random Vancomycin 05/23/24 05/23/24 05/23/24 05:23 05:30 05:33 WBC 9.3 RBC 2.96 L Hgb 9.8 L Hct 29.7 L MCV 100.3 H MCH 33.1 H MCHC 33.0 RDW 15.5 Plt Count 543 H MPV 10.2 Immature Gran % (Auto) Cancelled Neut % (Auto) Cancelled Lymph % (Auto) Cancelled [place] % (Auto) Cancelled Eos % (Auto) Cancelled Baso % (Auto) Cancelled Lymph # (Auto) Cancelled [place] # (Auto) Cancelled Eos # (Auto) Cancelled Baso # (Auto) Cancelled Abs Immat Gran (auto) Cancelled Absolute Neuts (auto) Cancelled Absolute Nucleated RBC 0.020 H Nucleated RBC % (auto) 0.2 Neutrophils % (Manual) 74 H Band Neutrophils % 3 Lymphocytes % (Manual) 9 L Monocytes % (Manual) 5 Eosinophils % (Manual) 4 Basophils % (Manual) 1 Metamyelocytes % 3 Myelocytes % 1 Abs Neuts (Manual) 7.2 Lymphocytes # (Manual) 0.8 L Monocytes # (Manual) 0.5 Eosinophils # (Manual) 0.4 Basophils # (Manual) 0.1 Metamyelocytes # 0.3 Myelocytes # 0.1 Platelet Estimate INCREASED Plt Morphology Comment NORMAL RBC Morphology NOTED Polychromasia 1+ (0-2) Macrocytosis 1+ (5-14) Spherocytes 1+ (0-2) VBG pH 7.52 H VBG pCO2 38 VBG pO2 37 VBG HCO3 31 H VBG O2 Saturation 61.0 VBG Base Excess 8.1 Sodium 140 Potassium 3.8 Chloride 101 Carbon Dioxide 26 Anion Gap 17 BUN 7 L Creatinine 1.00 Estim Creat Clear Calc 82.1 Estimated GFR > 60 POC Glucose 194 H Random Glucose 204 H Calcium 8.9 Phosphorus 5.1 H Magnesium 1.9 Total Bilirubin 0.4 AST 21 ALT 8 Alkaline Phosphatase 108 Total Protein 6.7 Albumin 3.5 Random Vancomycin 05/23/24 09:02 WBC RBC Hgb Hct MCV MCH MCHC RDW Plt Count MPV Immature Gran % (Auto) Neut % (Auto) Lymph % (Auto) [place] % (Auto) Eos % (Auto) Baso % (Auto) Lymph # (Auto) [place] # (Auto) Eos # (Auto) Baso # (Auto) Abs Immat Gran (auto) Absolute Neuts (auto) Absolute Nucleated RBC Nucleated RBC % (auto) Neutrophils % (Manual) Band Neutrophils % Lymphocytes % (Manual) Monocytes % (Manual) Eosinophils % (Manual) Basophils % (Manual) Metamyelocytes % Myelocytes % Abs Neuts (Manual) Lymphocytes # (Manual) Monocytes # (Manual) Eosinophils # (Manual) Basophils # (Manual) Metamyelocytes # Myelocytes # Platelet Estimate Plt Morphology Comment RBC Morphology Polychromasia Macrocytosis Spherocytes VBG pH VBG pCO2 VBG pO2 VBG HCO3 VBG O2 Saturation VBG Base Excess Sodium Potassium Chloride Carbon Dioxide Anion Gap BUN Creatinine Estim Creat Clear Calc Estimated GFR POC Glucose Random Glucose Calcium Phosphorus Magnesium Total Bilirubin AST ALT Alkaline Phosphatase Total Protein Albumin Random Vancomycin 20.6 H Microbiology Microbiology Results: Microbiology 05/05/24 07:50 Tracheal Aspirate Gram Stain - Final 05/05/24 07:50 Tracheal Aspirate Sputum Culture - Final Methicillin Res Staph Aureus 04/29/24 10:33 Blood - Venous Blood Culture - Final No growth after 5 days. 04/29/24 10:33 Blood - Venous Blood Culture - Final No growth after 5 days. Progress Note: A&P Assessment and plan (1) Status post fall: Status: Acute (2) ETOH abuse: Status: Acute (3) Alcohol abuse with withdrawal: Status: Acute (4) Delirium tremens: Status: Acute (5) DARRELL (acute kidney injury): Status: Acute (6) Encephalopathy: Status: Acute (7) Multifocal pneumonia: Status: Acute (8) Pneumonia: Status: Acute (9) Acute respiratory failure with hypoxia: Status: Acute Plan Neuro: Acute encephalopathy possibly due to metabolic encephalopathy On propofol for sedation, and fentanyl for analgesia, receiving as needed rocuronium pushes for agitation Close neurological status monitoring in the ICU every hour On thiamine and folate for chronic alcoholism We will add Klonopin 0.5mg TID Cardiac: On Lasix drip at 5 mL/hour due to volume overload. I's and O's net negative 1800 cc Respiratory: Acute hypoxemic respiratory failure due to aspiration pneumonia Currently on ventilator support On SMV/VC mode FiO2 60 per, PEEP 10, TV 380, RR 18, breathing about 25 times per minute. Peak pressures and plateau pressures are under the curve Ventilator management bundle with head end elevation, aspiration precaution, chlorhexidine mouthwash, daily awakening trials, daily spontaneous breathing trials GI: on tube feeds Renal: normal renal function We will closely monitor I's and O's Avoid nephrotoxic medications Heme: Chronic anemia, closely monitor H&H, transfuse for hemoglobin less than 7 grams/deciliter Endocrine: Blood sugars under control Sliding scale insulin as needed Infectious disease: Sputum cultures positive for MRSA 2 weeks ago, we will send repeat sputum cultures On vanc and Zosyn Musculoskeletal: Decubitus ulcer prevention protocol Lines: peripheral Prophylaxis: Lovenox, pantoprazole Total critical care time spent is about 40 minutes on managing this patient with multiple organ failures, time spent is mostly on chart review, review of labs, review of images, ventilator management, sedation management, close hemodynamic monitoring Quality Stroke Does the patient have a stroke diagnosis?: No VTE Prior VTE?: No VTE Risk Level:: Medical - moderate - high VTE Device Contraindication: Treatment Not Indicated VTE Drug Contraindication: N/A - Med Ordered
[2024-05-23 12:20] LABS: Glucose, Whole Blood 187 mg/dL (60-115)
[2024-05-23 17:57] LABS: Glucose, Whole Blood 170 mg/dL (60-115)
[2024-05-23] MEDS: propofoL 200 MG/20 ML VIAL 50 MG IVPUSH (18:09)
[2024-05-23] MEDS: vancomycin HCL 750 MG in 0.9 % Sodium Chloride 250 ML 265 MG IV (18:34)
[2024-05-23] MEDS: QUEtiapine Fumarate 100 MG TABLET PO (21:08)
[2024-05-23] MEDS: Midazolam HCl/NS 50 MG/50 ML PLAST..BAG IVCONT (23:01)
[2024-05-23 23:26] LABS: Glucose, Whole Blood 189 mg/dL (60-115)
[2024-05-24] VITALS (47 sets, daily range): BP systolic 56–152; BP diastolic 30–96; PULSE 56–97; RESP 10–23; TEMP 34.8–36.8; O2SAT 88–96
[2024-05-24] MEDS: Morphine Sulfate 2 MG/ML CARTRIDGE IVPUSH (00:03)
[2024-05-24] MEDS: dexmedeTOMIDine HCL/NS 400 MCG/100 ML PLAST..BAG 37.2 MCG IVCONT ×9 (01:32→23:29)
[2024-05-24] MEDS: Piperacillin Sodium/Tazobactam 4.5 GM in 0.9 % Sodium Chloride 100 ML IV ×4 (03:32→21:48)
[2024-05-24] MEDS: Furosemide 200 MG in 0.9 % Sodium Chloride 80 ML IVCONT ×2 (03:33→21:19)
[2024-05-24] MEDS: propofoL 200 MG/20 ML VIAL 50 MG IVPUSH (04:01)
[2024-05-24] MEDS: vancomycin HCL 750 MG in 0.9 % Sodium Chloride 250 ML 265 MG IV ×2 (04:10→17:30)
[2024-05-24 04:47] LABS: VBG Base Excess 11.2 mmol/L; VBG HCO3 31 mmol/L (22-26); VBG pCO2 27 mmHg; VBG pH 7.67 (7.32-7.43); VBG pO2 153 mmHg
[2024-05-24 05:08] LABS: MANUAL DIFF FLAG NO
[2024-05-24 05:11] LABS: Venous Blood Gas Refer to POC result
[2024-05-24 05:14] LABS: Basophils Absolute Auto 0.1 X10*3/uL (0.0-0.2); Eosinophils Absolute Auto 0.3 X10*3/uL (0.0-0.4); Eosinophils Percent Auto 2.5 % (0-4); Hematocrit 28.4 % (42.0-52.0); Hemoglobin 9.5 g/dl (14.0-18.0); Imm Gran Abs Auto 0.55 X10*3/uL (0.00-0.03); Imm Gran Pct Auto 4.5 % (0.0-0.4); Lymphocytes Absolute Auto 1.5 X10*3/uL (1.2-4.9); Lymphocytes Percent Auto 11.9 % (20-40); Mean Corpuscular HGB Conc 33.5 g/dl (31.0-36.0); Mean Corpuscular Hemoglobin 32.3 pg (27.0-33.0); Mean Corpuscular Volume 96.6 fL (80.0-98.0); Mean Platelet Volume 9.6 fL (9.4-12.4); Monocytes Absolute Auto 0.9 X10*3/uL (0.1-1.2); Monocytes Percent Auto 6.9 % (2-11); Neutrophils Percent Auto 73.2 % (45-73); Platelet Count 455 X10*3/uL (160-400); Red Blood Count 2.94 X10*6/uL (4.60-5.80); Red Cell Distribution Width 15.1 % (11.0-16.0); White Blood Count 12.3 X10*3/uL (4.8-10.8)
[2024-05-24 05:22] LABS: Creatinine Clr Calc Pharmacy 76.7; Estimated Glomerular Filt Rate > 60
[2024-05-24 05:27] LABS: Alanine Aminotransferase 7 U/L (0-40); Albumin Level 3.6 g/dL (3.5-5.0); Alkaline Phosphatase 104 U/L (39-117); Anion Gap 16 (12-20); Aspartate Amino Transferase 18 U/L (5-37); Bilirubin Total 0.4 mg/dL (0.0-1.0); Blood Urea Nitrogen 7 mg/dL (9-16); Calcium 9.1 mg/dL (8.4-10.2); Carbon Dioxide 28 mmol/L (22-29); Chloride 98 mmol/L (96-108); Creatinine Clr Calc Pharmacy 79.7; Estimated Glomerular Filt Rate > 60; Glucose Random 166 mg/dL (60-115); Magnesium 1.6 mg/dL (1.6-2.6); Phosphorus 4.3 mg/dL (2.7-4.5); Potassium 3.3 mmol/L (3.3-5.1); Sodium 139 mmol/L (135-145); Total Protein 6.9 g/dL (6.5-8.0)
[2024-05-24] MEDS: fentaNYL citrate/PF 100 MCG/2 ML VIAL IVPUSH ×3 (06:13→19:24)
[2024-05-24] MEDS: Insulin Lispro 100 UNIT/ML 3 ML VIAL SUBCUT ×4 (06:15→17:30)
[2024-05-24] MEDS: Levothyroxine Sodium 100 MCG/5 ML VIAL IVPUSH (06:16)
--- NOTE | 2024-05-24 08:58 | PM.CCPN ---
Subjective Subjective Date of Service: 05/24/24 Interval History: On ventilator support, on pressor support since yesterday morning. Mental status has improved significantly, following commands On Precedex for anxiolysis Critical Care Time (minutes): 35 Physical Exam Vital Signs: Vital Signs: Last Vital Signs Temp 97.2 F 05/24/24 08:00 Pulse 80 05/24/24 08:39 Resp 17 05/24/24 08:00 BP 144/92 H 05/24/24 08:39 Pulse Ox 92 05/24/24 08:00 O2 Del Method Mechanical Ventil ation 05/24/24 07:00 O2 Flow Rate 15 05/13/24 06:00 FiO2 55 05/24/24 08:03 BMI result Body Mass Index 27.3 General: Chronically ill appearing and tired appearing Nutritional Appearance: well nourished and normal weight Eyes: appearance normal, both eyes and all related structures; Alignment and Position: alignment normal and position normal Neck: No lymphadenopathy, no thyromegaly Resp: bilateral air entry equal, crackles heard in bilateral lung [place] Cardio: Regular rate, regular rhythm; Heart sounds: S1 normal heart sound present and S2 normal heart sound present GI: soft, nontender, no guarding, no hepatosplenomegaly : bladder normal to inspection, bladder normal to palpation, no renal angle tenderness Skin: no rashes or lesions noted and elasticity normal Neuro: No focal deficits, moves all extremities Objective Data Labs 05/24/24 04:41 05/24/24 04:41 Labs: Laboratory Results - last 24 hr 05/23/24 05/23/24 05/23/24 09:02 12:16 17:53 WBC RBC Hgb Hct MCV MCH MCHC RDW Plt Count MPV Immature Gran % (Auto) Neut % (Auto) Lymph % (Auto) [place] % (Auto) Eos % (Auto) Baso % (Auto) Lymph # (Auto) [place] # (Auto) Eos # (Auto) Baso # (Auto) Abs Immat Gran (auto) Absolute Neuts (auto) Absolute Nucleated RBC Nucleated RBC % (auto) VBG pH VBG pCO2 VBG pO2 VBG HCO3 VBG O2 Saturation VBG Base Excess Sodium Potassium Chloride Carbon Dioxide Anion Gap BUN Creatinine Estim Creat Clear Calc Estimated GFR POC Glucose 187 H 170 H Random Glucose Calcium Phosphorus Magnesium Total Bilirubin AST ALT Alkaline Phosphatase Total Protein Albumin Random Vancomycin 20.6 H 05/23/24 05/24/24 05/24/24 23:22 04:41 04:41 WBC 12.3 H RBC 2.94 L Hgb 9.5 L Hct 28.4 L MCV 96.6 MCH 32.3 MCHC 33.5 RDW 15.1 Plt Count 455 H MPV 9.6 Immature Gran % (Auto) 4.5 H Neut % (Auto) 73.2 H Lymph % (Auto) 11.9 L [place] % (Auto) 6.9 Eos % (Auto) 2.5 Baso % (Auto) 1.0 Lymph # (Auto) 1.5 [place] # (Auto) 0.9 Eos # (Auto) 0.3 Baso # (Auto) 0.1 Abs Immat Gran (auto) 0.55 H Absolute Neuts (auto) 9.0 H Absolute Nucleated RBC 0.000 Nucleated RBC % (auto) 0.0 VBG pH VBG pCO2 VBG pO2 VBG HCO3 VBG O2 Saturation VBG Base Excess Sodium 139 Potassium 3.3 Chloride 98 Carbon Dioxide 28 Anion Gap 16 BUN 7 L Creatinine 1.03 1.07 Estim Creat Clear Calc 79.7 Estimated GFR POC Glucose 189 H Random Glucose Calcium Phosphorus Magnesium Total Bilirubin AST ALT Alkaline Phosphatase Total Protein Albumin Random Vancomycin 05/24/24 05/24/24 05/24/24 04:41 04:41 04:44 WBC RBC Hgb Hct MCV MCH MCHC RDW Plt Count MPV Immature Gran % (Auto) Neut % (Auto) Lymph % (Auto) [place] % (Auto) Eos % (Auto) Baso % (Auto) Lymph # (Auto) [place] # (Auto) Eos # (Auto) Baso # (Auto) Abs Immat Gran (auto) Absolute Neuts (auto) Absolute Nucleated RBC Nucleated RBC % (auto) VBG pH 7.67 H* VBG pCO2 27 VBG pO2 153 VBG HCO3 31 H VBG O2 Saturation 100.0 VBG Base Excess 11.2 Sodium Potassium Chloride Carbon Dioxide Anion Gap BUN Creatinine Estim Creat Clear Calc 76.7 Estimated GFR > 60 > 60 POC Glucose Random Glucose 166 H Calcium 9.1 Phosphorus 4.3 Magnesium 1.6 Total Bilirubin 0.4 AST 18 ALT 7 Alkaline Phosphatase 104 Total Protein 6.9 Albumin 3.6 Random Vancomycin Microbiology Microbiology Results: Microbiology 05/23/24 10:49 Tracheal Aspirate Gram Stain - Final 05/23/24 10:49 Tracheal Aspirate Sputum Culture - Preliminary Staphylococcus aureus 05/05/24 07:50 Tracheal Aspirate Gram Stain - Final 05/05/24 07:50 Tracheal Aspirate Sputum Culture - Final Methicillin Res Staph Aureus 04/29/24 10:33 Blood - Venous Blood Culture - Final No growth after 5 days. 04/29/24 10:33 Blood - Venous Blood Culture - Final No growth after 5 days. Progress Note: A&P Assessment and plan (1) Status post fall: Status: Acute (2) ETOH abuse: Status: Acute (3) Alcohol abuse with withdrawal: Status: Acute (4) Pulmonary aspiration: Status: Acute (5) Multifocal pneumonia: Status: Acute Plan Neuro: Acute encephalopathy possibly due to metabolic encephalopathy On Precedex for sedation and as needed Fentanyl for analgesia, propofol tapered off Close neurological status monitoring in the ICU every hour On thiamine and folate for chronic alcoholism Continue Klonopin 0.5mg TID Cardiac: On Lasix drip at 5 mL/hour due to volume overload. I's and O's net negative 1800 cc levophed turned off this morning Respiratory: Acute hypoxemic respiratory failure due to aspiration pneumonia Currently on ventilator support, reintubated is on 05/13/2024 (previously extubated on 05/05/2024). On pressor support mode FiO2 55% per, PEEP 8, TV 380, RR 18, breathing about 25 times per minute. large amount of copious secretions Peak pressures and plateau pressures are under the curve Ventilator management bundle with head end elevation, aspiration precaution, chlorhexidine mouthwash, daily awakening trials, daily spontaneous breathing trials GI: on tube feeds Renal: normal renal function We will closely monitor I's and O's Avoid nephrotoxic medications Heme: Chronic anemia, closely monitor H&H, transfuse for hemoglobin less than 7 grams/deciliter Endocrine: Blood sugars under control Sliding scale insulin as needed Infectious disease: Sputum cultures positive for MRSA 2 weeks ago, we will send repeat sputum cultures On vanc and Zosyn Musculoskeletal: Decubitus ulcer prevention protocol Lines: peripheral Prophylaxis: Lovenox, pantoprazole Quality Stroke Does the patient have a stroke diagnosis?: No VTE Prior VTE?: No VTE Risk Level:: Medical - moderate - high VTE Device Contraindication: Treatment Not Indicated VTE Drug Contraindication: N/A - Med Ordered
[2024-05-24] MEDS: 0.9 % Sodium Chloride Flush 3 ML SYRINGE IVFLUSH ×3 (09:45→21:42)
[2024-05-24] MEDS: Heparin Sodium,Porcine 5,000 UNIT/ML VIAL 5000 UNIT SUBCUT ×2 (09:45→15:22)
[2024-05-24] MEDS: Folic Acid 2 MG in 0.9 % Sodium Chloride 50 ML 100.4 MG IV (09:46)
[2024-05-24] MEDS: Valproic Acid Liquid 250 MG/5 ML SOLUTION 500 MG PO ×3 (09:46→21:25)
[2024-05-24] MEDS: Chlorhexidine Gluc Oral Rinse 15 ML MOUTHWASH BUCCAL ×3 (09:46→21:24)
[2024-05-24] MEDS: clonazePAM 0.5 MG TABLET PO ×3 (09:47→21:25)
[2024-05-24] MEDS: Famotidine/PF 20 MG/2 ML VIAL IVPUSH (09:47)
[2024-05-24] MEDS: THIAMINE HCL IV (10:07)
[2024-05-24] MEDS: DEXTROSE 5% IV (10:07)
[2024-05-24 12:08] LABS: Glucose, Whole Blood 199 mg/dL (60-115)
[2024-05-24] MEDS: Midazolam HCl 2 MG/2 ML VIAL 4 MG IVPUSH ×2 (12:55→19:15)
[2024-05-24 16:49] LABS: Vancomycin Random 15.8 mcg/mL (15-20)
--- NOTE | 2024-05-24 17:14 | PC.NURSE ---
Assumed care @ 0700? Neuro/Resp:? Sedated/intubated, positive cough, gag, and pain response, opens eyes, tracks speaker, follows simple commands, BANKS spontaneously. Restless, requiring frequent redirection , 1:1 at bedside, On precedex, and versed gtt per APR.? Cardiac: SR-ST, on levophed gtt, MAP goal >65. Laxis gtt @ 5mg/hr GI: LBM? 05/24, +bowel sounds, OGT in place, tolerating TF without signs of intolerance, POC Q6hr, on sliding scale insulin per APR. : Male purewick in place.? Skin: ?Impaired skin integrity - see skin assessment (repositioning maintained)? Infectious: IV antibiotics? Lines: peripheral IVs
[2024-05-24 17:26] LABS: Glucose, Whole Blood 176 mg/dL (60-115)
[2024-05-24] MEDS: propofoL 1,000 MG/100 ML VIAL 14.76 MG IVCONT ×2 (19:43→21:25)
[2024-05-24] MEDS: Norepinephrine Bitartrate/D5W 8 MG/250 ML PLAST..BAG 4.61 MG IVCONT (21:08)
[2024-05-24] MEDS: Midazolam HCl/NS 50 MG/50 ML PLAST..BAG IVCONT (21:15)
[2024-05-24] MEDS: QUEtiapine Fumarate 100 MG TABLET PO (21:25)
[2024-05-25] VITALS (60 sets, daily range): BP systolic 62–190; BP diastolic 34–110; PULSE 60–99; RESP 10–27; TEMP 34.4–38.5; O2SAT 88–96; BMI 29.5
--- NOTE | 2024-05-25 | ECG_ITS ---
Test Reason : st changes hypotension Blood Pressure : */* mmHG Vent. Rate : 89 BPM Atrial Rate : 89 BPM P-R Int : 180 ms QRS Dur : 82 ms QT Int : 374 ms P-R-T Axes : 56 -24 50 degrees QTcB Int : 455 ms Normal sinus rhythm Inferior infarct (cited on or before 29-Apr-2024) Abnormal ECG When compared with ECG of 29-Apr-2024 10:57, Questionable change in QRS axis Referred By: Petar Reyes Electronically Signed By: ISSAC TAYLOR MD
[2024-05-25 00:26] LABS: Glucose, Whole Blood 226 mg/dL (60-115)
[2024-05-25] MEDS: Insulin Lispro 100 UNIT/ML 3 ML VIAL SUBCUT ×5 (00:27→23:32)
[2024-05-25] MEDS: Heparin Sodium,Porcine 5,000 UNIT/ML VIAL 5000 UNIT SUBCUT ×4 (00:28→23:32)
[2024-05-25] MEDS: dexmedeTOMIDine HCL/NS 400 MCG/100 ML PLAST..BAG 37.2 MCG IVCONT ×9 (01:30→22:01)
[2024-05-25] MEDS: Albuterol/Iprat 2.5/0.5MG 3 ML AMPUL.NEB INHALE ×4 (01:33→19:17)
--- NOTE | 2024-05-25 01:44 | PC.NURSE ---
Addendum entered by Martín Fuentes RN 05/25/24 05:58: PROPOFOL WEANED OFF PER PROVIDER 5AM....AM VBGS REVIEWED BY PROVIDER..VENTILATOR RETURN TOSIMV MODE: RATE 14/TV 420/FIO2 70%/PEEP 8/PSV 10..SAO2 945...MALE EXTERNAL CATHETER DRAINEDAPPROX 2100ml THIS SHIFT Original Note: CARE ASSUMED 7PM...REMAINED INTUBATED...VENT= SIMV RATE 18/TV 420/FIO2 60%/PEEP 10....RR CONTROLLED AT 18...SAO2 91-92%..SUCTIONED CREAM SECRETIONS VIA ETT...PRECIDEX 1.5 MCG/KG/HR AND VERSED 2 MG/HR...AWAKE..TRACKS SPEAKER..BANKS BUT DOES NOT FOLLOW COMMANDS..ATTEMPTING TO SIT UP IN BED..CHEWING ON AND COUGHING AGAINST ETT...PRN FENTANYL AND VERSED GIVEN W/O EFFECT...SAO2 DECREASED TO 86-87%...PROPOFOL RESUMED 30 MCG/KG/MIN PER PROVIDER WITH RESTFUL EFFECT..LEVOPHED DRIP PER APR...LASIX DRIP 5 MG/HR...PURWIK EXTERNAL MALE CATHETER EMPTIED 12AM FOR 1150ML URINE..SAO2 DECREASED TO 86% AT REST...LAVAGED FOR MINIMAL SECRETIONS...RT PRESENT...RETURNED TO [facility] VENT SUPPORT...FIO2 TITRATED TO 80% AND PEEP TO 8CM....SAO2 90-91%...DUONEB UPDRAFTS RE-ORDERED AND GIVEN..CURRENTLY SAO2 93% WITH FIO2 80% AND PEEP 8CM...PROPOFOL WEANED TO 20 MCG/KG/MIN...TO MONITOR RESPONSE
[2024-05-25] MEDS: propofoL 1,000 MG/100 ML VIAL 9.84 MG IVCONT (02:32)
[2024-05-25] MEDS: Piperacillin Sodium/Tazobactam 4.5 GM in 0.9 % Sodium Chloride 100 ML IV ×4 (03:49→21:59)
[2024-05-25 04:28] LABS: VBG Base Excess 15.1 mmol/L; VBG HCO3 37 mmol/L (22-26); VBG pCO2 35 mmHg; VBG pH 7.63 (7.32-7.43); VBG pO2 65 mmHg
[2024-05-25] MEDS: vancomycin HCL 750 MG in 0.9 % Sodium Chloride 250 ML 265 MG IV (04:38)
[2024-05-25 04:54] LABS: Basophils Absolute Auto 0.1 X10*3/uL (0.0-0.2); Basophils Percent Auto 0.8 % (0-2); Eosinophils Absolute Auto 0.4 X10*3/uL (0.0-0.4); Eosinophils Percent Auto 2.6 % (0-4); Hematocrit 30.1 % (42.0-52.0); Hemoglobin 10.1 g/dl (14.0-18.0); Imm Gran Abs Auto 0.53 X10*3/uL (0.00-0.03); Imm Gran Pct Auto 3.4 % (0.0-0.4); Lymphocytes Absolute Auto 1.3 X10*3/uL (1.2-4.9); Lymphocytes Percent Auto 8.2 % (20-40); MANUAL DIFF FLAG NO; Mean Corpuscular HGB Conc 33.6 g/dl (31.0-36.0); Mean Corpuscular Hemoglobin 32.9 pg (27.0-33.0); Mean Platelet Volume 9.3 fL (9.4-12.4); Monocytes Absolute Auto 0.8 X10*3/uL (0.1-1.2); Monocytes Percent Auto 5.2 % (2-11); Neutrophils Absolute Auto 12.4 x10*3/uL (2.0-8.3); Neutrophils Percent Auto 79.8 % (45-73); Platelet Count 456 X10*3/uL (160-400); Red Blood Count 3.07 X10*6/uL (4.60-5.80); Red Cell Distribution Width 15.3 % (11.0-16.0); White Blood Count 15.5 X10*3/uL (4.8-10.8)
[2024-05-25 05:02] LABS: Venous Blood Gas Refer to POC result
[2024-05-25] MEDS: Levothyroxine Sodium 100 MCG/5 ML VIAL IVPUSH (05:15)
[2024-05-25 05:16] LABS: Alanine Aminotransferase < 6 U/L (0-40); Albumin Level 3.7 g/dL (3.5-5.0); Anion Gap 18 (12-20); Aspartate Amino Transferase 16 U/L (5-37); Bilirubin Total 0.3 mg/dL (0.0-1.0); Blood Urea Nitrogen 10 mg/dL (9-16); Calcium 9.2 mg/dL (8.4-10.2); Carbon Dioxide 27 mmol/L (22-29); Chloride 95 mmol/L (96-108); Creatinine Clr Calc Pharmacy 90.4; Estimated Glomerular Filt Rate > 60; Glucose Random 227 mg/dL (60-115); Magnesium 1.8 mg/dL (1.6-2.6); Phosphorus 4.3 mg/dL (2.7-4.5); Potassium 2.8 mmol/L (3.3-5.1); Sodium 137 mmol/L (135-145); Total Protein 7.4 g/dL (6.5-8.0)
[2024-05-25 05:19] LABS: Alkaline Phosphatase 98 U/L (39-117)
[2024-05-25 05:24] LABS: Glucose, Whole Blood 231 mg/dL (60-115)
[2024-05-25] MEDS: Potassium Chloride Packet 20 MEQ PACKET 40 MEQ PO ×3 (05:32→09:29)
[2024-05-25] MEDS: fentaNYL citrate/PF 100 MCG/2 ML VIAL IVPUSH ×3 (06:05→19:30)
[2024-05-25] MEDS: 0.9 % Sodium Chloride Flush 3 ML SYRINGE IVFLUSH ×3 (08:49→22:04)
[2024-05-25] MEDS: THIAMINE HCL IV (09:27)
[2024-05-25] MEDS: DEXTROSE 5% IV (09:27)
[2024-05-25] MEDS: Folic Acid 2 MG in 0.9 % Sodium Chloride 50 ML 100.4 MG IV (09:27)
[2024-05-25] MEDS: Famotidine/PF 20 MG/2 ML VIAL IVPUSH (09:28)
[2024-05-25] MEDS: Valproic Acid Liquid 250 MG/5 ML SOLUTION 500 MG PO ×3 (09:28→20:40)
[2024-05-25] MEDS: clonazePAM 0.5 MG TABLET PO ×3 (09:28→20:40)
[2024-05-25] MEDS: Chlorhexidine Gluc Oral Rinse 15 ML MOUTHWASH BUCCAL ×3 (09:29→20:40)
[2024-05-25] MEDS: Midodrine HCl 10 MG TABLET PO ×3 (09:31→17:39)
--- NOTE | 2024-05-25 12:12 | MHC.CLN ---
F/U PT REMAINS INTUBATED PROPOFOL TURNED OFF DISCUSSED AT ROUNDS WITH MD-PLAN TO DECREASE FLUIDS FOR DIURESIS RECOMMEND INCREASING GLUCERNA TO MAX GOAL RATE 80ML/HR TO PROVIDE 1920KCALS (26KCALS/KG BASED ON IBW), 80G PROTEIN (1.07G/KG), 1638ML TOTAL WATER FROM FORMULA HOLD FREE WATER FOR TODAY CONTINUE TO MONITOR TOLERANCE AND LYTES
[2024-05-25 12:58] LABS: Glucose, Whole Blood 186 mg/dL (60-115)
[2024-05-25 15:36] LABS: Vancomycin Random 20.4 mcg/mL (15-20)
[2024-05-25] MEDS: Midazolam HCl 2 MG/2 ML VIAL 4 MG IVPUSH (15:50)
--- NOTE | 2024-05-25 16:48 | P.PNCC_ITS ---
Subjective Subjective Date of Service: 05/25/24 Interval History: Continues to be on ventilator support with increasing oxygen requirement overnight up to 70% FiO2 this morning Critical Care Time (minutes): 35 Physical Exam 2 Vital Signs: Vital Signs: Last Vital Signs Temp 101.3 F H 05/25/24 12:00 Pulse 92 05/25/24 16:00 Resp 17 05/25/24 16:00 BP 102/63 05/25/24 16:00 Pulse Ox 91 L 05/25/24 16:00 O2 Del Method Mechanical Ventil ation 05/25/24 16:00 O2 Flow Rate 60 05/24/24 19:00 FiO2 60 05/25/24 16:00 BMI result Body Mass Index 29.5 General: Elderly male chronically ill appearing and tired appearing lying in the bed currently to the ventilator Nutritional Appearance: well nourished and normal weight Eyes: appearance normal, both eyes and all related structures; Alignment and Position: alignment normal and position normal Neck: No lymphadenopathy, no thyromegaly Resp: bilateral air entry equal, occasional added sounds present Cardio: Regular rate, regular rhythm; Heart sounds: S1 normal heart sound present and S2 normal heart sound present GI: soft, nontender, no guarding, no hepatosplenomegaly : bladder normal to inspection, bladder normal to palpation, no renal angle tenderness Skin: no rashes or lesions noted and elasticity normal Neuro: No focal deficits, moves all extremities Objective Data Labs 05/25/24 04:22 05/25/24 04:22 Labs: Laboratory Results - last 24 hr 05/24/24 05/24/24 05/25/24 16:02 17:18 00:20 WBC RBC Hgb Hct MCV MCH MCHC RDW Plt Count MPV Immature Gran % (Auto) Neut % (Auto) Lymph % (Auto) [place] % (Auto) Eos % (Auto) Baso % (Auto) Lymph # (Auto) [place] # (Auto) Eos # (Auto) Baso # (Auto) Abs Immat Gran (auto) Absolute Neuts (auto) Absolute Nucleated RBC Nucleated RBC % (auto) VBG pH VBG pCO2 VBG pO2 VBG HCO3 VBG O2 Saturation VBG Base Excess Sodium Potassium Chloride Carbon Dioxide Anion Gap BUN Creatinine Estim Creat Clear Calc Estimated GFR POC Glucose 176 H 226 H Random Glucose Calcium Phosphorus Magnesium Total Bilirubin AST ALT Alkaline Phosphatase Total Protein Albumin Random Vancomycin 15.8 05/25/24 05/25/24 05/25/24 04:22 04:23 05:19 WBC 15.5 H RBC 3.07 L Hgb 10.1 L Hct 30.1 L MCV 98.0 MCH 32.9 MCHC 33.6 RDW 15.3 Plt Count 456 H MPV 9.3 L Immature Gran % (Auto) 3.4 H Neut % (Auto) 79.8 H Lymph % (Auto) 8.2 L [place] % (Auto) 5.2 Eos % (Auto) 2.6 Baso % (Auto) 0.8 Lymph # (Auto) 1.3 [place] # (Auto) 0.8 Eos # (Auto) 0.4 Baso # (Auto) 0.1 Abs Immat Gran (auto) 0.53 H Absolute Neuts (auto) 12.4 H Absolute Nucleated RBC 0.000 Nucleated RBC % (auto) 0.0 VBG pH 7.63 H* VBG pCO2 35 VBG pO2 65 VBG HCO3 37 H VBG O2 Saturation 92.0 VBG Base Excess 15.1 Sodium 137 Potassium 2.8 L* Chloride 95 L Carbon Dioxide 27 Anion Gap 18 BUN 10 Creatinine 1.01 Estim Creat Clear Calc 90.4 Estimated GFR > 60 POC Glucose 231 H Random Glucose 227 H Calcium 9.2 Phosphorus 4.3 Magnesium 1.8 Total Bilirubin 0.3 AST 16 ALT < 6 Alkaline Phosphatase 98 Total Protein 7.4 Albumin 3.7 Random Vancomycin 05/25/24 05/25/24 12:55 14:48 WBC RBC Hgb Hct MCV MCH MCHC RDW Plt Count MPV Immature Gran % (Auto) Neut % (Auto) Lymph % (Auto) [place] % (Auto) Eos % (Auto) Baso % (Auto) Lymph # (Auto) [place] # (Auto) Eos # (Auto) Baso # (Auto) Abs Immat Gran (auto) Absolute Neuts (auto) Absolute Nucleated RBC Nucleated RBC % (auto) VBG pH VBG pCO2 VBG pO2 VBG HCO3 VBG O2 Saturation VBG Base Excess Sodium Potassium Chloride Carbon Dioxide Anion Gap BUN Creatinine Estim Creat Clear Calc Estimated GFR POC Glucose 186 H Random Glucose Calcium Phosphorus Magnesium Total Bilirubin AST ALT Alkaline Phosphatase Total Protein Albumin Random Vancomycin 20.4 H Microbiology Microbiology Results: Microbiology 05/23/24 10:49 Tracheal Aspirate Gram Stain - Final 05/23/24 10:49 Tracheal Aspirate Sputum Culture - Final Methicillin Res Staph Aureus 05/05/24 07:50 Tracheal Aspirate Gram Stain - Final 05/05/24 07:50 Tracheal Aspirate Sputum Culture - Final Methicillin Res Staph Aureus 04/29/24 10:33 Blood - Venous Blood Culture - Final No growth after 5 days. 04/29/24 10:33 Blood - Venous Blood Culture - Final No growth after 5 days. Progress Note: A&P Assessment and plan (1) Alcohol abuse with withdrawal: Status: Acute (2) ETOH abuse: Status: Acute (3) Delirium tremens: Status: Acute (4) Thrombocytopenia: Status: Acute (5) Hypoglycemia: Status: Acute (6) Hyponatremia: Status: Acute (7) Nasal septal defect: Status: Acute (8) Transaminitis: Status: Acute (9) DARRELL (acute kidney injury): Status: Acute (10) Metabolic acidosis: Status: Acute (11) Encephalopathy: Status: Acute (12) Multifocal pneumonia: Status: Acute (13) Pneumonia: Status: Acute (14) Pulmonary aspiration: Status: Acute (15) Acute respiratory failure with hypoxia: Status: Acute (16) Aspiration pneumonia: Status: Acute Plan Neuro: Acute encephalopathy possibly due to metabolic encephalopathy On Versed drip for sedation and as needed Fentanyl for analgesia, Precedex for anxiolysis Close neurological status monitoring in the ICU every hour On thiamine and folate for chronic alcoholism Continue Klonopin 0.5mg TID to taper Versed drip as tolerated Cardiac: On Lasix drip at 5 mL/hour due to volume overload. We will increase Lasix to 10 mL/hour to make him fluid balance net negative. Yesterday he was fluid balance net positive 2 L. we will cut off free water flushes along with the tube feeds to minimal levophed turned off this morning Respiratory: Acute hypoxemic respiratory failure due to aspiration pneumonia Currently on ventilator support, reintubated is on 05/13/2024 (previously extubated on 05/05/2024). On pressor support mode FiO2 70% per, PEEP 8, TV 380, RR 18, breathing about 25 times per minute. large amount of copious secretions. We will switch him to SIMV given increase in oxygen requirement Peak pressures and plateau pressures are under the curve Ventilator management bundle with head end elevation, aspiration precaution, chlorhexidine mouthwash, daily awakening trials, daily spontaneous breathing trials GI: on tube feeds Renal: normal renal function We will closely monitor I's and O's Avoid nephrotoxic medications Heme: Chronic anemia, closely monitor H&H, transfuse for hemoglobin less than 7 grams/deciliter Endocrine: Blood sugars under control Sliding scale insulin as needed Infectious disease: Sputum cultures positive for MRSA 2 weeks ago, repeat sputum cultures positive for MRSA On vanc and Zosyn Musculoskeletal: Decubitus ulcer prevention protocol Lines: peripheral Prophylaxis: Lovenox, pantoprazole Quality Stroke Does the patient have a stroke diagnosis?: No VTE Prior VTE?: No VTE Risk Level:: Medical - moderate - high VTE Device Contraindication: Treatment Not Indicated VTE Drug Contraindication: N/A - Med Ordered
[2024-05-25] MEDS: Midazolam HCl/NS 50 MG/50 ML PLAST..BAG IVCONT (17:33)
[2024-05-25 17:39] LABS: Glucose, Whole Blood 178 mg/dL (60-115)
--- NOTE | 2024-05-25 18:37 | PC.NURSE ---
Assumed care @ 0700? Neuro/Resp:? Sedated/intubated, positive cough, gag, and pain response, opens eyes, tracks speaker, follows simple commands, BANKS spontaneously, Restless, requiring frequent redirection,? On precedex and versed gtt per APR.? Cardiac: SR-ST, On levophed gtt, and midodrine added per APR,? MAP goal >65. Laxis gtt? increased to 10mg/hr GI: LBM? 05/25 , +bowel sounds, OGT in place, tolerating TF without signs of intolerance, POC Q6hr, on sliding scale insulin per APR. . : Male purewick in place.? Skin: ?Impaired skin integrity - see skin assessment (repositioning maintained)? Infectious: IV antibiotics? Lines: peripheral IVs
[2024-05-25] MEDS: Norepinephrine Bitartrate/D5W 8 MG/250 ML PLAST..BAG 4.61 MG IVCONT (20:35)
[2024-05-25] MEDS: QUEtiapine Fumarate 100 MG TABLET PO (20:39)
[2024-05-25] MEDS: vancomycin HCL 500 MG in 0.9 % Sodium Chloride 100 ML 110 MG IV (20:48)
[2024-05-25 21:37] LABS: VBG Base Excess 9.8 mmol/L; VBG HCO3 32 mmol/L (22-26); VBG pCO2 37 mmHg; VBG pH 7.55 (7.32-7.43); VBG pO2 56 mmHg
[2024-05-25 21:52] LABS: Alanine Aminotransferase 12 U/L (0-40); Albumin Level 3.6 g/dL (3.5-5.0); Alkaline Phosphatase 109 U/L (39-117); Anion Gap 17 (12-20); Aspartate Amino Transferase 23 U/L (5-37); Bilirubin Total 0.3 mg/dL (0.0-1.0); Blood Urea Nitrogen 12 mg/dL (9-16); Carbon Dioxide 28 mmol/L (22-29); Chloride 98 mmol/L (96-108); Creatinine Clr Calc Pharmacy 67.1; Estimated Glomerular Filt Rate 54; Glucose Random 229 mg/dL (60-115); Magnesium 1.6 mg/dL (1.6-2.6); Phosphorus 5.2 mg/dL (2.7-4.5); Potassium 3.9 mmol/L (3.3-5.1); Sodium 139 mmol/L (135-145); Total Protein 6.8 g/dL (6.5-8.0)
[2024-05-25 21:59] LABS: Troponin-I High Sensitivity 36.7 ng/L (<3.5-35.0)
[2024-05-25 22:52] LABS: Venous Blood Gas Refer to POC result
[2024-05-25 23:29] LABS: Glucose, Whole Blood 255 mg/dL (60-115)
[2024-05-26] VITALS (57 sets, daily range): BP systolic 93–167; BP diastolic 52–99; PULSE 71–103; RESP 14–30; TEMP 35–37.6; O2SAT 87–97; BMI 29.5
[2024-05-26] MEDS: Albuterol/Iprat 2.5/0.5MG 3 ML AMPUL.NEB INHALE ×5 (00:36→23:53)
[2024-05-26] MEDS: dexmedeTOMIDine HCL/NS 400 MCG/100 ML PLAST..BAG 37.2 MCG IVCONT ×9 (01:07→21:48)
[2024-05-26] MEDS: fentaNYL citrate/PF 100 MCG/2 ML VIAL IVPUSH ×3 (01:11→08:38)
--- NOTE | 2024-05-26 01:47 | PC.NURSE ---
Addendum entered by Martín Fuentes RN 05/26/24 06:44: AM LABS REVIEWED BY PROVIDER..PER PROVIDER RESTARTED LASIX DRIP AT 5 MG/HR Original Note: CARE ASSUMED 7PM....REMAINS INTUBATED/SIMV VENT SUPPORT..PRECIDEX 1.5 MCG/KG/HR AND VERSED 2 MG/HR..INITIALLY AWAKE..TRACKING SPEAKER...BANKS BUT RESTLESS...GRIMACING AND COUGHING AGAINST ETT..NODDED YES' TO PAIN..PRN FENTANYL GIVEN WITH RESTFUL EFFECT...LEVOPHED DRIP INITIALLY 0.01 MCG/KG/MIN AND LASIX DRIP 10 MG/HR..EXTERNAL PURWIK CATHETER YELLOW URINE..APPROX 9PM.PATIENT HYPOTENSIVE..SBP 58-66...DECREASED [place] TO 86-87%...LEVOPHED DRIP TO 0.16 MCG/KG/MIN AND FIO2 TO 80%...? INFERO-LATERAL ST CHANGES ON MONITOR...12-LEAD EKG DONE AND REVIEWED BY PROVIDER..STAT TROPONIN = 36.7 ...UNCHANGED FROM ADMISSION...BP MARGINAL...CREATININE= 1.36... LASIX DRIP HELD BY PROVIDER....BP IMPROVED AND LEVOPHED WEANED TO 0.1 MCG/KG/MIN WITH STABLE BP..CURRENTLY BP= 121/78...SAO2 91-92% WITH FIO2 70%..RESTFUL
[2024-05-26] MEDS: Piperacillin Sodium/Tazobactam 4.5 GM in 0.9 % Sodium Chloride 100 ML IV ×4 (03:16→21:25)
[2024-05-26 05:30] LABS: VBG Base Excess 9.6 mmol/L; VBG HCO3 33 mmol/L (22-26); VBG pCO2 39 mmHg; VBG pH 7.52 (7.32-7.43); VBG pO2 59 mmHg
[2024-05-26 05:46] LABS: Glucose, Whole Blood 264 mg/dL (60-115)
[2024-05-26] MEDS: Insulin Lispro 100 UNIT/ML 3 ML VIAL SUBCUT ×2 (05:46→11:50)
[2024-05-26] MEDS: Levothyroxine Sodium 100 MCG/5 ML VIAL IVPUSH (05:46)
[2024-05-26] MEDS: Midazolam HCl/NS 50 MG/50 ML PLAST..BAG IVCONT ×2 (05:48→23:25)
[2024-05-26 05:56] LABS: Basophils Absolute Auto 0.1 X10*3/uL (0.0-0.2); Basophils Percent Auto 0.6 % (0-2); Eosinophils Absolute Auto 0.4 X10*3/uL (0.0-0.4); Eosinophils Percent Auto 1.8 % (0-4); Hematocrit 29.3 % (42.0-52.0); Hemoglobin 9.5 g/dl (14.0-18.0); Imm Gran Pct Auto 2.1 % (0.0-0.4); Lymphocytes Absolute Auto 1.3 X10*3/uL (1.2-4.9); Lymphocytes Percent Auto 6.7 % (20-40); MANUAL DIFF FLAG NO; Mean Corpuscular HGB Conc 32.4 g/dl (31.0-36.0); Mean Corpuscular Hemoglobin 32.1 pg (27.0-33.0); Mean Platelet Volume 9.4 fL (9.4-12.4); Monocytes Absolute Auto 1.2 X10*3/uL (0.1-1.2); Monocytes Percent Auto 6.4 % (2-11); Neutrophils Percent Auto 82.4 % (45-73); Platelet Count 394 X10*3/uL (160-400); Red Blood Count 2.96 X10*6/uL (4.60-5.80); Red Cell Distribution Width 15.7 % (11.0-16.0); White Blood Count 19.4 X10*3/uL (4.8-10.8)
[2024-05-26 06:02] LABS: Creatinine Clr Calc Pharmacy 77.3; Estimated Glomerular Filt Rate > 60
[2024-05-26 06:12] LABS: Alanine Aminotransferase 8 U/L (0-40); Albumin Level 3.6 g/dL (3.5-5.0); Alkaline Phosphatase 111 U/L (39-117); Anion Gap 18 (12-20); Aspartate Amino Transferase 21 U/L (5-37); Bilirubin Total 0.3 mg/dL (0.0-1.0); Blood Urea Nitrogen 13 mg/dL (9-16); Carbon Dioxide 27 mmol/L (22-29); Chloride 96 mmol/L (96-108); Creatinine Clr Calc Pharmacy 78.6; Estimated Glomerular Filt Rate > 60; Glucose Random 272 mg/dL (60-115); Magnesium 1.9 mg/dL (1.6-2.6); Phosphorus 4.7 mg/dL (2.7-4.5); Potassium 3.9 mmol/L (3.3-5.1); Sodium 137 mmol/L (135-145); Total Protein 7.2 g/dL (6.5-8.0)
[2024-05-26 06:20] LABS: Venous Blood Gas Refer to POC result
[2024-05-26] MEDS: 0.9 % Sodium Chloride Flush 3 ML SYRINGE IVFLUSH ×3 (07:37→21:26)
[2024-05-26 08:12] LABS: Vancomycin Random 15.2 mcg/mL (15-20)
[2024-05-26] MEDS: Heparin Sodium,Porcine 5,000 UNIT/ML VIAL 5000 UNIT SUBCUT ×2 (08:37→15:43)
[2024-05-26] MEDS: Famotidine/PF 20 MG/2 ML VIAL IVPUSH (08:37)
[2024-05-26] MEDS: Chlorhexidine Gluc Oral Rinse 15 ML MOUTHWASH BUCCAL (08:37)
[2024-05-26] MEDS: Valproic Acid Liquid 250 MG/5 ML SOLUTION 500 MG PO (08:39)
[2024-05-26] MEDS: Midodrine HCl 10 MG TABLET PO ×2 (08:39→11:50)
[2024-05-26] MEDS: clonazePAM 0.5 MG TABLET PO (08:40)
[2024-05-26] MEDS: vancomycin HCL 500 MG in 0.9 % Sodium Chloride 100 ML 110 MG IV ×2 (08:40→19:43)
[2024-05-26] MEDS: Folic Acid 2 MG in 0.9 % Sodium Chloride 50 ML 100.4 MG IV (08:46)
[2024-05-26] MEDS: DEXTROSE 5% IV (08:55)
[2024-05-26] MEDS: THIAMINE HCL IV (08:55)
[2024-05-26] MEDS: Furosemide 100 MG/10 ML VIAL 80 MG IVPUSH (09:44)
[2024-05-26] MEDS: propofoL 200 MG/20 ML VIAL IVPUSH (10:22)
--- NOTE | 2024-05-26 11:18 | PC.RT ---
RT assist MD with bronchcoscopy. Pt hyperoxygenated 30 min prior. Vitals were monitored throughout, Nsg present. Pt frederick procedure well.
[2024-05-26 11:32] LABS: Glucose, Whole Blood 203 mg/dL (60-115)
--- NOTE | 2024-05-26 12:03 | PM.CCPN ---
Subjective Subjective Date of Service: 05/26/24 Interval History: On ventilator support this morning, tapering off the oxygen requirement Chest x-ray showed elevated right hemidiaphragm, 50 the bronchoscope to clear out thick secretions from his at midline lower lobes prior to trial of extubation On Precedex, Versed, Levophed and Lasix drips Critical Care Time (minutes): 60 Physical Exam Vital Signs: Vital Signs: Last Vital Signs Temp 98.1 F 05/26/24 08:00 Pulse 77 05/26/24 11:00 Resp 16 05/26/24 11:00 BP 94/58 L 05/26/24 11:00 Pulse Ox 90 L 05/26/24 11:21 O2 Del Method Mechanical Ventil ation 05/26/24 11:00 O2 Flow Rate 60 05/24/24 19:00 FiO2 50 05/26/24 11:21 BMI result Body Mass Index 29.5 General: Elderly male chronically ill and tired appearing Nutritional Appearance: well nourished and normal weight Eyes: appearance normal, both eyes and all related structures; Alignment and Position: alignment normal and position normal Neck: No lymphadenopathy, no thyromegaly Resp: bilateral air entry equal, occasional added sounds present more on the right side than the left Cardio: Regular rate, regular rhythm; Heart sounds: S1 normal heart sound present and S2 normal heart sound present GI: soft, nontender, no guarding, no hepatosplenomegaly : bladder normal to inspection, bladder normal to palpation, no renal angle tenderness Skin: no rashes or lesions noted and elasticity normal Neuro: Following commands, moves all extremities Objective Data Labs 05/26/24 04:30 05/26/24 05:15 Labs: Laboratory Results - last 24 hr 05/25/24 05/25/24 05/25/24 12:55 14:48 17:36 WBC RBC Hgb Hct MCV MCH MCHC RDW Plt Count MPV Immature Gran % (Auto) Neut % (Auto) Lymph % (Auto) [place] % (Auto) Eos % (Auto) Baso % (Auto) Lymph # (Auto) [place] # (Auto) Eos # (Auto) Baso # (Auto) Abs Immat Gran (auto) Absolute Neuts (auto) Absolute Nucleated RBC Nucleated RBC % (auto) VBG pH VBG pCO2 VBG pO2 VBG HCO3 VBG O2 Saturation VBG Base Excess Sodium Potassium Chloride Carbon Dioxide Anion Gap BUN Creatinine Estim Creat Clear Calc Estimated GFR POC Glucose 186 H 178 H Random Glucose Calcium Phosphorus Magnesium Total Bilirubin AST ALT Alkaline Phosphatase Troponin I High Sens Total Protein Albumin Random Vancomycin 20.4 H 05/25/24 05/25/24 05/26/24 21:33 23:26 04:30 WBC 19.4 H RBC 2.96 L Hgb 9.5 L Hct 29.3 L MCV 99.0 H MCH 32.1 MCHC 32.4 RDW 15.7 Plt Count 394 MPV 9.4 Immature Gran % (Auto) 2.1 H Neut % (Auto) 82.4 H Lymph % (Auto) 6.7 L [place] % (Auto) 6.4 Eos % (Auto) 1.8 Baso % (Auto) 0.6 Lymph # (Auto) 1.3 [place] # (Auto) 1.2 Eos # (Auto) 0.4 Baso # (Auto) 0.1 Abs Immat Gran (auto) 0.40 H Absolute Neuts (auto) 16.0 H Absolute Nucleated RBC 0.000 Nucleated RBC % (auto) 0.0 VBG pH 7.55 H VBG pCO2 37 VBG pO2 56 VBG HCO3 32 H VBG O2 Saturation 88.0 VBG Base Excess 9.8 Sodium 139 Potassium 3.9 D Chloride 98 Carbon Dioxide 28 Anion Gap 17 BUN 12 Creatinine 1.36 Estim Creat Clear Calc 67.1 Estimated GFR 54 POC Glucose 255 H Random Glucose 229 H Calcium 9.0 Phosphorus 5.2 H Magnesium 1.6 Total Bilirubin 0.3 AST 23 ALT 12 Alkaline Phosphatase 109 Troponin I High Sens 36.7 H Total Protein 6.8 Albumin 3.6 Random Vancomycin 05/26/24 05/26/24 05/26/24 05:15 05:15 05:15 WBC RBC Hgb Hct MCV MCH MCHC RDW Plt Count MPV Immature Gran % (Auto) Neut % (Auto) Lymph % (Auto) [place] % (Auto) Eos % (Auto) Baso % (Auto) Lymph # (Auto) [place] # (Auto) Eos # (Auto) Baso # (Auto) Abs Immat Gran (auto) Absolute Neuts (auto) Absolute Nucleated RBC Nucleated RBC % (auto) VBG pH VBG pCO2 VBG pO2 VBG HCO3 VBG O2 Saturation VBG Base Excess Sodium 137 Potassium 3.9 Chloride 96 Carbon Dioxide 27 Anion Gap 18 BUN 13 Creatinine 1.16 1.18 Estim Creat Clear Calc 78.6 77.3 Estimated GFR > 60 POC Glucose Random Glucose Calcium Phosphorus Magnesium Total Bilirubin AST ALT Alkaline Phosphatase Troponin I High Sens Total Protein Albumin Random Vancomycin 05/26/24 05/26/24 05/26/24 05:15 05:23 05:43 WBC RBC Hgb Hct MCV MCH MCHC RDW Plt Count MPV Immature Gran % (Auto) Neut % (Auto) Lymph % (Auto) [place] % (Auto) Eos % (Auto) Baso % (Auto) Lymph # (Auto) [place] # (Auto) Eos # (Auto) Baso # (Auto) Abs Immat Gran (auto) Absolute Neuts (auto) Absolute Nucleated RBC Nucleated RBC % (auto) VBG pH 7.52 H VBG pCO2 39 VBG pO2 59 VBG HCO3 33 H VBG O2 Saturation 89.0 VBG Base Excess 9.6 Sodium Potassium Chloride Carbon Dioxide Anion Gap BUN Creatinine Estim Creat Clear Calc Estimated GFR > 60 POC Glucose 264 H Random Glucose 272 H Calcium 9.0 Phosphorus 4.7 H Magnesium 1.9 Total Bilirubin 0.3 AST 21 ALT 8 Alkaline Phosphatase 111 Troponin I High Sens Total Protein 7.2 Albumin 3.6 Random Vancomycin 05/26/24 05/26/24 07:35 11:27 WBC RBC Hgb Hct MCV MCH MCHC RDW Plt Count MPV Immature Gran % (Auto) Neut % (Auto) Lymph % (Auto) [place] % (Auto) Eos % (Auto) Baso % (Auto) Lymph # (Auto) [place] # (Auto) Eos # (Auto) Baso # (Auto) Abs Immat Gran (auto) Absolute Neuts (auto) Absolute Nucleated RBC Nucleated RBC % (auto) VBG pH VBG pCO2 VBG pO2 VBG HCO3 VBG O2 Saturation VBG Base Excess Sodium Potassium Chloride Carbon Dioxide Anion Gap BUN Creatinine Estim Creat Clear Calc Estimated GFR POC Glucose 203 H Random Glucose Calcium Phosphorus Magnesium Total Bilirubin AST ALT Alkaline Phosphatase Troponin I High Sens Total Protein Albumin Random Vancomycin 15.2 Microbiology Microbiology Results: Microbiology 05/23/24 10:49 Tracheal Aspirate Gram Stain - Final 05/23/24 10:49 Tracheal Aspirate Sputum Culture - Final Methicillin Res Staph Aureus 05/05/24 07:50 Tracheal Aspirate Gram Stain - Final 05/05/24 07:50 Tracheal Aspirate Sputum Culture - Final Methicillin Res Staph Aureus 04/29/24 10:33 Blood - Venous Blood Culture - Final No growth after 5 days. 04/29/24 10:33 Blood - Venous Blood Culture - Final No growth after 5 days. Progress Note: A&P Assessment and plan (1) DARRELL (acute kidney injury): Status: Acute (2) Encephalopathy: Status: Acute (3) Multifocal pneumonia: Status: Acute (4) Acute respiratory failure with hypoxia: Status: Acute (5) Pulmonary aspiration: Status: Acute (6) Aspiration pneumonia: Status: Acute (7) ETOH abuse: Status: Acute (8) Alcohol abuse with withdrawal: Status: Acute Plan Neuro: Acute encephalopathy possibly due to metabolic encephalopathy On Versed drip for sedation and as needed Fentanyl for analgesia, Precedex for anxiolysis; we will wean sedation to weaning of the ventilator Close neurological status monitoring in the ICU every hour On thiamine and folate for chronic alcoholism Continue Klonopin 0.5mg TID to taper Versed drip as tolerated Cardiac: On Lasix drip at 10 mL/hour due to volume overload. We will switch to IV Lasix pushes to see if he gets similar response levophed turned off this morning Respiratory: Acute hypoxemic respiratory failure due to aspiration pneumonia Currently on ventilator support, reintubated is on 05/13/2024 (previously extubated on 05/05/2024). On pressor support mode FiO2 70% per, PEEP 8, TV 380, RR 18, breathing about 25 times per minute. l tapered down the oxygen to 50% and place the patient on pressor support. Patient would never be ready for a good we will parameters, we did a bronchoscopy with lavage, removing thick secretions from his right lung to get him ready for a trial of extubation. We will extubate him to OptiFlow/high-flow oxygen and we will closely monitor his respiratory status. We understand that he has a high-risk for intubation but this is a trial to avoid tracheostomy. If the patient gets reintubated he would need tracheostomy Peak pressures and plateau pressures are under the curve Ventilator management bundle with head end elevation, aspiration precaution, chlorhexidine mouthwash, daily awakening trials, daily spontaneous breathing trials GI: on tube feeds Renal: normal renal function We will closely monitor I's and O's Avoid nephrotoxic medications Heme: Chronic anemia, closely monitor H&H, transfuse for hemoglobin less than 7 grams/deciliter Endocrine: Blood sugars under control Sliding scale insulin as needed Infectious disease: Sputum cultures positive for MRSA 2 weeks ago, repeat sputum cultures positive for MRSA On vanc and Zosyn Musculoskeletal: Decubitus ulcer prevention protocol Lines: peripheral Prophylaxis: Lovenox, pantoprazole Critical care time spent is about 60 minutes on managing this complex critically ill patient time is mainly spent on ventilator management,, changing ventilator settings, getting the patient ready for extubation, postextubation monitoring, close respiratory status monitoring in this trial of extubation, close hemodynamic monitoring, sedation management, vasopressor management at this time is excluding any procedural time. Quality Stroke Does the patient have a stroke diagnosis?: No VTE Prior VTE?: No VTE Risk Level:: Medical - moderate - high VTE Device Contraindication: Treatment Not Indicated VTE Drug Contraindication: N/A - Med Ordered
--- NOTE | 2024-05-26 12:09 | W.PM.CCHP ---
Procedures Date of Service Date of Service: 05/26/24 Bronchoscopy Consent for Procedure: Emergent-no informed consent obtained Indication: atelectasis and pulmonary toilet Route: endotracheal tube Sedation/Analgesia: fentanyl, midazolam and other Monitor: EKG and pulse oximetry Findings: Thick white secretions were aspirated from trachea, right mainstem, right middle lobe and lower lobe areas. Patient tolerated the procedure well. Complications: none
[2024-05-26] MEDS: Midazolam HCl 2 MG/2 ML VIAL 4 MG IVPUSH ×3 (13:36→23:30)
[2024-05-26] MEDS: fentaNYL citrate/PF 100 MCG/2 ML VIAL 50 MCG IVPUSH ×2 (15:43→22:46)
--- NOTE | 2024-05-26 17:11 | PC.NURSE ---
Assumed care at 0700- pt mechanically vented and sedated. Precedex and versed gtts running per APR. Pt. opens eyes with verbal stimuli, tracks, follows commands, nods head Y/N in response to questions. CXR obtained- see report. Bedside bronchoscopy done by MD at approx. 1030. Pt. given 200 mg Propofol IVP to tolerate procedure. At approx 1100, pt placed on PSV 8/8 50%. Pt. extubated at 1210 by RT per MD order. Pt. placed on HFNC. Pt. continues on precedex and versed gtts- A&O to self only, intermittently attempting to pull at tubes/lines and get out of bed. Pt moderately redirectable- PRN versed given per APR. Pt. remains SR/ST on tele, HR 70s-100s. Norepinephrine gtt weaned off per APR- MAPs >65. Pt. unable to tolerate bedside swallow evaluation at this time, PO meds held- MD aware. Incontinent x2 with small mushy brown BMs. 80 mg Lasix IVP given this AM- male purewick in place draining cyu. Pt. repositioned Q2, oral care provided PRN. Plan of care ongoing.
[2024-05-26 17:53] LABS: Glucose, Whole Blood 137 mg/dL (60-115)
[2024-05-26] MEDS: Norepinephrine Bitartrate/D5W 8 MG/250 ML PLAST..BAG 6.15 MG IVCONT (19:45)
[2024-05-26] MEDS: Furosemide 40 MG/4 ML VIAL IVPUSH (23:00)
[2024-05-26 23:03] LABS: Glucose, Whole Blood 173 mg/dL (60-115)
[2024-05-26 23:28] LABS: VBG HCO3 34 mmol/L (22-26); VBG pCO2 45 mmHg; VBG pH 7.48 (7.32-7.43); VBG pO2 62 mmHg
--- NOTE | 2024-05-26 23:50 | PC.RT ---
Pt placed on Bipap for Hypoxia; failed trail post 30mins. Transferred from room 261 to 254 and placed back on HFNC 60L 100%.
[2024-05-27] VITALS (48 sets, daily range): BP systolic 69–182; BP diastolic 43–119; PULSE 84–112; RESP 12–26; TEMP 36.7–37.4; O2SAT 85–95; BMI 27.4
--- NOTE | 2024-05-27 | ECG_ITS ---
Test Reason : QT interval for Geodon Blood Pressure : */* mmHG Vent. Rate : 106 BPM Atrial Rate : 106 BPM P-R Int : 184 ms QRS Dur : 82 ms QT Int : 342 ms P-R-T Axes : 59 4 25 degrees QTcB Int : 454 ms Sinus tachycardia with Fusion complexes Inferior infarct (cited on or before 29-Apr-2024) Abnormal ECG When compared with ECG of 25-May-2024 21:19, Fusion complexes are now Present Referred By: Tio Huertas Electronically Signed By: ISSAC TAYLOR MD
[2024-05-27] MEDS: Heparin Sodium,Porcine 5,000 UNIT/ML VIAL 5000 UNIT SUBCUT ×3 (00:24→15:16)
[2024-05-27] MEDS: dexmedeTOMIDine HCL/NS 400 MCG/100 ML PLAST..BAG 37.2 MCG IVCONT ×9 (00:33→21:44)
--- NOTE | 2024-05-27 00:38 | PM.CCN ---
Critical Care Event Note Summary Date of Service: 05/26/24 Code activated: No Narrative: This case had a high probability of a clinically significant, sudden, or life threatening deterioration of this patient's condition which required my full and direct attention, intervention and personal management. Critical Care Time (minutes): 90 Comment: 2153 this patient was extubated earlier on in the afternoon, placed on high-flow O2 at 55 L with FiO2 of 80% subsequently up to 90 and 100% and 60 L. Despite of this the patient dropped his sats to 85 and 86% respectively with a good wave. The patient was given a nebulizer, subsequently patient became agitated, physically and verbally aggressive stating that he had to get out of bed and could not breathe. 4 mg of Versed IV x1 was given and the Versed drip was increased to 2 milligrams/hour. The patient's oxygen saturation continue to be abnormal, he was placed on BiPAP but he was not able to tolerated as he would constantly move around the yelling and screaming trying to take it off, he was somewhat sedated by giving him more Versed with a sitter at bedside for protection. The patient tolerated this for about half an hour. At 23:00, the patient became restless again, aggressive and continued to have issues with BiPAP. Given the concern of further deterioration in the need for intubation, the patient was switched to another room, BiPAP was removed, he was put back on high-flow 60 L with 100% FiO2, DuoNeb treatment was given with some improvement. His lung sounds are very diminished bilaterally particularly on the right lower lobe with fine crackles at the right base. Lasix 40mg IVP. Venous gas shows a pH of 7.48, pCO2 45, PO2 62, HC03 34. 2330, the patient continues to be restless, fighting kicking and screaming, he was placed on four-point restraint. Fentanyl 50 mcg IV push x1. This seemed to have helped. 0100 a.m. 05/27/2024 O2 sat decreased again, DuoNeb given, deep suction to promote some coughing helped and O2 sat improved temporarily from 88-92%. Diuretic effect with a total output of 1.5 L. Thus far I am able to maintain him above 88% on saturation and doing everything possible to avoid intubation for if the patient requires repeat intubation, he will need a tracheostomy. Critical care time used for critical evaluation of this patient, diagnosis, treatment and coordination of care, review her records and documentation TOTAL CRITICAL CARE TIME 60 MIN . discussion and coordination with consultants, completely separate from any procedures performed. Patient's care was discussed in detail with Dr. Huertas. He is aware of all the above as well as the plan of care for this patient.
[2024-05-27] MEDS: fentaNYL citrate/PF 100 MCG/2 ML VIAL 50 MCG IVPUSH ×5 (00:42→19:53)
[2024-05-27] MEDS: Furosemide 40 MG/4 ML VIAL IVPUSH (00:57)
--- NOTE | 2024-05-27 01:00 | PC.NURSE ---
Addendum entered by Martín Fuentes RN 05/27/24 01:45: PREVIOUSLY INCONTINANT LARGE AMOUNT URINE POST-LASIX..PURWIK ADDITIONAL 600ML SO FAR...TOTAL OUTPUT POST LASIX AT LEAST 1000ML Addendum entered by Martín Fuentes RN 05/27/24 01:42: VBG DRAWN 23:22 AND REVIEWED BY PROVIDER Original Note: CARE ASSUMED 7PM...INITIALLY PRECIDEX 1.5 MCG/KG.HR AND VERSED 1 MG/HR...DROWSY BUT AWAKE...ORIENTED TO PERSON ONLY..HIFLO CANNULA 50 L/M AND FIO2 70%..NO DISTRESS...FIO2 TITRATED TO 80% TO MAINTAIN SAO2 90% OR GREATER..APPROX 22:15.PATIENT AGITATED..ATTEMPTING TO THROW LEGS OVER SIDERAILS..DESATURATING...PROVIDER AT BEDSIDE ..VERSED 4MG IV GIVEN AND VERSED DRIP INCREASED TO 2 MG/HR W/O EFFECT...RT AT BEDSIDE...PLACED ON BIPAP BY RT...MULTIPLE TITRATIONS OF BIPAP MODE BY RT...FENTANYL 50 MCG IVP GIVEN...LASIX 40 MCG IV GIVEN...REMAINED RESTLESS AND AGITATED...POC GLUCOSE= 173...UNABLE TO MAINTAIN BIPAP MASK IN PLACE..RETURNED TO HIFLO CANNULA 60 L/M AND FIO2 100%...REPEAT VERSED 4 MG IV GIVEN ..TRANSFERRED TO ROOM [facility] FOR POSSIBLE INTUBATION...4 POINT BILATERAL SOFT LIMB RESTRAINTS APPLIED D/T REPEATEDLY ATTEMPTING TO PULL OFF O2 AND ATTEMPTING TO CLIMB OOB...REPEAT FENTANYL 50 MCG IV GIVEN..RT PRESENT...UPDRAFT PREVIOUSLY GIVEN BY RT.....DEEP SUCTIONED BY RT FOR THICK CREAM SECRETIONS...INCONTINANT LARGE AMOUNT URINE DURING TRANSFER TO [facility]...LINEN CHANGED..PURWIK REAPPLIED..PUIRWIK COLLECTING YELLOW URINE..CURRENTLY SAO2 93-94% AFTER DEEP SUCTIONING BY RT...
[2024-05-27] MEDS: Albuterol/Iprat 2.5/0.5MG 3 ML AMPUL.NEB INHALE ×4 (01:03→20:02)
[2024-05-27 01:36] LABS: Venous Blood Gas Refer to POC result
[2024-05-27] MEDS: Piperacillin Sodium/Tazobactam 4.5 GM in 0.9 % Sodium Chloride 100 ML IV ×4 (03:45→21:43)
[2024-05-27] MEDS: Albuterol Sulfate (0.083%) 2.5 MG/3 ML VIAL.NEB INHALE (04:04)
[2024-05-27 05:39] LABS: VBG Base Excess 13.1 mmol/L; VBG HCO3 36 mmol/L (22-26); VBG pCO2 40 mmHg; VBG pH 7.56 (7.32-7.43); VBG pO2 51 mmHg
[2024-05-27 05:42] LABS: MANUAL DIFF FLAG NO
[2024-05-27 05:46] LABS: Basophils Absolute Auto 0.1 X10*3/uL (0.0-0.2); Basophils Percent Auto 0.7 % (0-2); Eosinophils Absolute Auto 0.4 X10*3/uL (0.0-0.4); Eosinophils Percent Auto 2.4 % (0-4); Hematocrit 28.2 % (42.0-52.0); Imm Gran Abs Auto 0.36 X10*3/uL (0.00-0.03); Imm Gran Pct Auto 2.3 % (0.0-0.4); Lymphocytes Absolute Auto 1.1 X10*3/uL (1.2-4.9); Mean Corpuscular HGB Conc 31.9 g/dl (31.0-36.0); Mean Corpuscular Hemoglobin 31.8 pg (27.0-33.0); Mean Corpuscular Volume 99.6 fL (80.0-98.0); Mean Platelet Volume 9.2 fL (9.4-12.4); Monocytes Absolute Auto 1.1 X10*3/uL (0.1-1.2); Neutrophils Absolute Auto 12.9 x10*3/uL (2.0-8.3); Neutrophils Percent Auto 80.6 % (45-73); Platelet Count 354 X10*3/uL (160-400); Red Blood Count 2.83 X10*6/uL (4.60-5.80); Red Cell Distribution Width 15.1 % (11.0-16.0)
[2024-05-27] MEDS: Levothyroxine Sodium 100 MCG/5 ML VIAL IVPUSH (05:47)
[2024-05-27 06:08] LABS: Creatinine Clr Calc Pharmacy 86.4; Estimated Glomerular Filt Rate > 60
[2024-05-27 06:10] LABS: Alanine Aminotransferase 6 U/L (0-40); Albumin Level 3.6 g/dL (3.5-5.0); Anion Gap 19 (12-20); Aspartate Amino Transferase 16 U/L (5-37); Bilirubin Total 0.4 mg/dL (0.0-1.0); Blood Urea Nitrogen 11 mg/dL (9-16); Calcium 9.5 mg/dL (8.4-10.2); Carbon Dioxide 29 mmol/L (22-29); Chloride 96 mmol/L (96-108); Creatinine Clr Calc Pharmacy 86.4; Estimated Glomerular Filt Rate > 60; Glucose Random 183 mg/dL (60-115); Magnesium 1.9 mg/dL (1.6-2.6); Phosphorus 3.7 mg/dL (2.7-4.5); Potassium 3.6 mmol/L (3.3-5.1); Sodium 140 mmol/L (135-145); Total Protein 7.2 g/dL (6.5-8.0)
[2024-05-27 06:16] LABS: Vancomycin Random 14.2 mcg/mL (15-20)
[2024-05-27 06:21] LABS: Alkaline Phosphatase 98 U/L (39-117)
[2024-05-27 06:23] LABS: Glucose, Whole Blood 169 mg/dL (60-115)
[2024-05-27 08:11] LABS: Venous Blood Gas Refer to POC result
[2024-05-27] MEDS: THIAMINE HCL IV (08:49)
[2024-05-27] MEDS: DEXTROSE 5% IV (08:49)
[2024-05-27] MEDS: Folic Acid 2 MG in 0.9 % Sodium Chloride 50 ML 100.4 MG IV (08:49)
--- NOTE | 2024-05-27 08:50 | PM.CCPN ---
Subjective Subjective Date of Service: 05/27/24 Interval History: Was given a trial of extubation yesterday, not tolerating it well so far. Overnight periods of desaturation, agitation needing increasing oxygen requirement to 90% and 60 L Critical Care Time (minutes): 35 Physical Exam Vital Signs: Vital Signs: Last Vital Signs Temp 98.0 F 05/27/24 08:00 Pulse 88 05/27/24 08:00 Resp 14 05/27/24 08:00 BP 126/75 05/27/24 08:00 Pulse Ox 85 L 05/27/24 08:00 O2 Del Method High Flow Nasal C annula 05/27/24 08:00 O2 Flow Rate 55 05/27/24 08:00 FiO2 90 05/27/24 08:00 BMI result Body Mass Index 27.4 General: Patient is in acute distress, ill appearing and tired appearing Nutritional Appearance: well nourished and overweight Eyes: appearance normal, both eyes and all related structures; Alignment and Position: alignment normal and position normal Neck: No lymphadenopathy, no thyromegaly Resp: bilateral air entry equal, crackles heard bilaterally Cardio: Regular rate, regular rhythm; Heart sounds: S1 normal heart sound present and S2 normal heart sound present GI: soft, nontender, no guarding, no hepatosplenomegaly : bladder normal to inspection, bladder normal to palpation, no renal angle tenderness Skin: no rashes or lesions noted and elasticity normal Neuro: oriented to person, oriented to place, but still significant confusion present and moves all extremities Objective Data Labs 05/27/24 05:32 05/27/24 05:32 Labs: Laboratory Results - last 24 hr 05/26/24 05/26/24 05/26/24 11:27 17:49 22:59 WBC RBC Hgb Hct MCV MCH MCHC RDW Plt Count MPV Immature Gran % (Auto) Neut % (Auto) Lymph % (Auto) [place] % (Auto) Eos % (Auto) Baso % (Auto) Lymph # (Auto) [place] # (Auto) Eos # (Auto) Baso # (Auto) Abs Immat Gran (auto) Absolute Neuts (auto) Absolute Nucleated RBC Nucleated RBC % (auto) VBG pH VBG pCO2 VBG pO2 VBG HCO3 VBG O2 Saturation VBG Base Excess Sodium Potassium Chloride Carbon Dioxide Anion Gap BUN Creatinine Estim Creat Clear Calc Estimated GFR POC Glucose 203 H 137 H 173 H Random Glucose Calcium Phosphorus Magnesium Total Bilirubin AST ALT Alkaline Phosphatase Total Protein Albumin Random Vancomycin 05/26/24 05/27/24 05/27/24 23:22 05:32 05:32 WBC 16.0 H RBC 2.83 L Hgb 9.0 L Hct 28.2 L MCV 99.6 H MCH 31.8 MCHC 31.9 RDW 15.1 Plt Count 354 MPV 9.2 L Immature Gran % (Auto) 2.3 H Neut % (Auto) 80.6 H Lymph % (Auto) 7.0 L [place] % (Auto) 7.0 Eos % (Auto) 2.4 Baso % (Auto) 0.7 Lymph # (Auto) 1.1 L [place] # (Auto) 1.1 Eos # (Auto) 0.4 Baso # (Auto) 0.1 Abs Immat Gran (auto) 0.36 H Absolute Neuts (auto) 12.9 H Absolute Nucleated RBC 0.000 Nucleated RBC % (auto) 0.0 VBG pH 7.48 H VBG pCO2 45 VBG pO2 62 VBG HCO3 34 H VBG O2 Saturation 91.0 VBG Base Excess 10.0 Sodium 140 Potassium 3.6 Chloride 96 Carbon Dioxide 29 Anion Gap 19 BUN 11 Creatinine 0.95 0.95 Estim Creat Clear Calc 86.4 Estimated GFR POC Glucose Random Glucose Calcium Phosphorus Magnesium Total Bilirubin AST ALT Alkaline Phosphatase Total Protein Albumin Random Vancomycin 05/27/24 05/27/24 05/27/24 05:32 05:32 05:34 WBC RBC Hgb Hct MCV MCH MCHC RDW Plt Count MPV Immature Gran % (Auto) Neut % (Auto) Lymph % (Auto) [place] % (Auto) Eos % (Auto) Baso % (Auto) Lymph # (Auto) [place] # (Auto) Eos # (Auto) Baso # (Auto) Abs Immat Gran (auto) Absolute Neuts (auto) Absolute Nucleated RBC Nucleated RBC % (auto) VBG pH 7.56 H VBG pCO2 40 VBG pO2 51 VBG HCO3 36 H VBG O2 Saturation 84.0 VBG Base Excess 13.1 Sodium Potassium Chloride Carbon Dioxide Anion Gap BUN Creatinine Estim Creat Clear Calc 86.4 Estimated GFR > 60 > 60 POC Glucose Random Glucose 183 H Calcium 9.5 Phosphorus 3.7 Magnesium 1.9 Total Bilirubin 0.4 AST 16 ALT 6 Alkaline Phosphatase 98 Total Protein 7.2 Albumin 3.6 Random Vancomycin 14.2 L 05/27/24 06:15 WBC RBC Hgb Hct MCV MCH MCHC RDW Plt Count MPV Immature Gran % (Auto) Neut % (Auto) Lymph % (Auto) [place] % (Auto) Eos % (Auto) Baso % (Auto) Lymph # (Auto) [place] # (Auto) Eos # (Auto) Baso # (Auto) Abs Immat Gran (auto) Absolute Neuts (auto) Absolute Nucleated RBC Nucleated RBC % (auto) VBG pH VBG pCO2 VBG pO2 VBG HCO3 VBG O2 Saturation VBG Base Excess Sodium Potassium Chloride Carbon Dioxide Anion Gap BUN Creatinine Estim Creat Clear Calc Estimated GFR POC Glucose 169 H Random Glucose Calcium Phosphorus Magnesium Total Bilirubin AST ALT Alkaline Phosphatase Total Protein Albumin Random Vancomycin Microbiology Microbiology Results: Microbiology 05/23/24 10:49 Tracheal Aspirate Gram Stain - Final 05/23/24 10:49 Tracheal Aspirate Sputum Culture - Final Methicillin Res Staph Aureus 05/05/24 07:50 Tracheal Aspirate Gram Stain - Final 05/05/24 07:50 Tracheal Aspirate Sputum Culture - Final Methicillin Res Staph Aureus 04/29/24 10:33 Blood - Venous Blood Culture - Final No growth after 5 days. 04/29/24 10:33 Blood - Venous Blood Culture - Final No growth after 5 days. Progress Note: A&P Assessment and plan (1) ETOH abuse: Status: Acute (2) Alcohol abuse with withdrawal: Status: Acute (3) Delirium tremens: Status: Acute (4) Thrombocytopenia: Status: Acute (5) Hypoglycemia: Status: Acute (6) Hyponatremia: Status: Acute (7) Transaminitis: Status: Acute (8) DARRELL (acute kidney injury): Status: Acute (9) Encephalopathy: Status: Acute (10) Multifocal pneumonia: Status: Acute (11) Pneumonia: Status: Acute (12) Pulmonary aspiration: Status: Acute (13) Acute respiratory failure with hypoxia: Status: Acute (14) Aspiration pneumonia: Status: Acute Plan Neuro: Acute encephalopathy possibly due to metabolic encephalopathy On Precedex and Versed drip for anxiolysis; we will try to add ketamine drip to see the response as patient continues to have significant agitation. Will add PRN Geodon for agitation. WIll get EKG for QT Close neurological status monitoring in the ICU every hour On thiamine and folate for chronic alcoholism- we will stop Continue Klonopin 0.5mg TID to taper Versed drip as tolerated Cardiac: We will give IV Lasix 80 mg TID today On Levophed for vasopressor support, titrate to keep map above 65 mm Hg Respiratory: Acute hypoxemic respiratory failure due to aspiration pneumonia. initially intubated on 04/30/2024 and extubated on 05/05/2024; reintubated on 05/13/2024 and extubated on 05/26/2024. Was extubated yesterday to to give a trial as the patient would need tracheostomy if he continues to needing ventilator support. He is not doing well, with significant agitation and restlessness along with hypoxia. His oxygen requirement has increased up to 90% at 60 L/min. We will try him on BiPAP support for recruitment. Continue chest percussion therapy GI: on tube feeds are held Renal: normal renal function, fluid balance net-1.7 L yesterday, continue Lasix. We will closely monitor I's and O's Avoid nephrotoxic medications Heme: Chronic anemia, closely monitor H&H, transfuse for hemoglobin less than 7 grams/deciliter Endocrine: Blood sugars under control Sliding scale insulin as needed Infectious disease: Sputum cultures positive for MRSA 2 weeks ago, repeat sputum cultures positive for MRSA White count trending down On vanc and Zosyn Musculoskeletal: Decubitus ulcer prevention protocol Lines: peripheral Prophylaxis: Lovenox, pantoprazole Quality Stroke Does the patient have a stroke diagnosis?: No VTE Prior VTE?: No VTE Risk Level:: Medical - moderate - high VTE Device Contraindication: Treatment Not Indicated VTE Drug Contraindication: N/A - Med Ordered
[2024-05-27] MEDS: 0.9 % Sodium Chloride Flush 3 ML SYRINGE IVFLUSH ×2 (09:11→15:16)
[2024-05-27] MEDS: Famotidine/PF 20 MG/2 ML VIAL IVPUSH (09:51)
--- NOTE | 2024-05-27 11:41 | MHC.CLN ---
F/U PT EXTUBATED YESTERDAY NGT REMOVED PER NSG PT IS CURRENTLY NPO DISCUSSED AT ROUNDS WITH MD FOLLOWING FOR DIET ADVANCEMENT CONSULT RD IF ALTERNATIVE NUTRITION NEEDED RD CAN BE REACHED VIA TIGER CONNECT DURING OFF HOURS IF NEEDED
[2024-05-27 12:10] LABS: Glucose, Whole Blood 134 mg/dL (60-115)
[2024-05-27] MEDS: Ketamine HCl 500 MG in 0.9 % Sodium Chloride 250 ML 13.27 MG IVCONT (12:23)
[2024-05-27] MEDS: vancomycin HCL 500 MG in 0.9 % Sodium Chloride 100 ML 110 MG IV ×2 (12:27→20:16)
[2024-05-27] MEDS: Furosemide 100 MG/10 ML VIAL 80 MG IVPUSH ×2 (12:31→21:43)
--- NOTE | 2024-05-27 12:52 | MHC.CM.PN ---
Pt remains on Rizvi O2 and will start on Geodon and Ketamine for behavior management. Family in to visit and assists w/reorienting pt. D/C planning remains ongoing at this time however, it seems highly unlikely that pt will be able to return to home. CM to follow
[2024-05-27] MEDS: Ziprasidone Mesylate 20 MG VIAL IM (16:15)
[2024-05-27 17:36] LABS: Glucose, Whole Blood 144 mg/dL (60-115)
[2024-05-27] MEDS: Norepinephrine Bitartrate/D5W 8 MG/250 ML PLAST..BAG 7.69 MG IVCONT (19:00)
[2024-05-27 22:25] LABS: VBG Base Excess 11.6 mmol/L; VBG HCO3 35 mmol/L (22-26); VBG pCO2 44 mmHg; VBG pH 7.51 (7.32-7.43); VBG pO2 59 mmHg
[2024-05-28] VITALS (47 sets, daily range): BP systolic 79–176; BP diastolic 40–108; PULSE 61–100; RESP 12–25; TEMP 36.5–37.4; O2SAT 89–98; BMI 27.4
[2024-05-28 00:14] LABS: Venous Blood Gas Refer to POC result
[2024-05-28 00:15] LABS: Glucose, Whole Blood 154 mg/dL (60-115)
[2024-05-28] MEDS: Albuterol/Iprat 2.5/0.5MG 3 ML AMPUL.NEB INHALE ×3 (00:19→19:26)
[2024-05-28] MEDS: Heparin Sodium,Porcine 5,000 UNIT/ML VIAL 5000 UNIT SUBCUT ×3 (00:22→16:43)
[2024-05-28] MEDS: dexmedeTOMIDine HCL/NS 400 MCG/100 ML PLAST..BAG 37.2 MCG IVCONT ×9 (00:22→19:32)
[2024-05-28] MEDS: Ketamine HCl 500 MG in 0.9 % Sodium Chloride 250 ML 13.27 MG IVCONT (03:03)
[2024-05-28 04:56] LABS: VBG Base Excess 14.8 mmol/L; VBG HCO3 37 mmol/L (22-26); VBG pCO2 38 mmHg; VBG pH 7.59 (7.32-7.43); VBG pO2 28 mmHg
[2024-05-28] MEDS: Piperacillin Sodium/Tazobactam 4.5 GM in 0.9 % Sodium Chloride 100 ML IV ×4 (04:56→21:28)
[2024-05-28] MEDS: Albuterol Sulfate (0.083%) 2.5 MG/3 ML VIAL.NEB INHALE (05:01)
[2024-05-28 05:06] LABS: MANUAL DIFF FLAG NO
[2024-05-28 05:07] LABS: Basophils Absolute Auto 0.1 X10*3/uL (0.0-0.2); Basophils Percent Auto 0.7 % (0-2); Eosinophils Absolute Auto 0.3 X10*3/uL (0.0-0.4); Eosinophils Percent Auto 1.9 % (0-4); Hematocrit 29.8 % (42.0-52.0); Hemoglobin 9.5 g/dl (14.0-18.0); Imm Gran Abs Auto 0.35 X10*3/uL (0.00-0.03); Lymphocytes Absolute Auto 1.3 X10*3/uL (1.2-4.9); Lymphocytes Percent Auto 7.5 % (20-40); Mean Corpuscular HGB Conc 31.9 g/dl (31.0-36.0); Mean Corpuscular Hemoglobin 32.1 pg (27.0-33.0); Mean Corpuscular Volume 100.7 fL (80.0-98.0); Mean Platelet Volume 9.4 fL (9.4-12.4); Monocytes Absolute Auto 1.4 X10*3/uL (0.1-1.2); Monocytes Percent Auto 7.9 % (2-11); Platelet Count 341 X10*3/uL (160-400); Red Blood Count 2.96 X10*6/uL (4.60-5.80); White Blood Count 17.4 X10*3/uL (4.8-10.8)
[2024-05-28] MEDS: Levothyroxine Sodium 100 MCG/5 ML VIAL IVPUSH (05:19)
[2024-05-28 05:21] LABS: Venous Blood Gas Refer to POC result
[2024-05-28 05:36] LABS: Alanine Aminotransferase 11 U/L (0-40); Albumin Level 3.9 g/dL (3.5-5.0); Alkaline Phosphatase 97 U/L (39-117); Anion Gap 19 (12-20); Aspartate Amino Transferase 21 U/L (5-37); Bilirubin Total 0.4 mg/dL (0.0-1.0); Blood Urea Nitrogen 12 mg/dL (9-16); Carbon Dioxide 31 mmol/L (22-29); Chloride 97 mmol/L (96-108); Creatinine Clr Calc Pharmacy 70.1; Estimated Glomerular Filt Rate > 60; Glucose Random 162 mg/dL (60-115); Magnesium 1.8 mg/dL (1.6-2.6); Phosphorus 3.5 mg/dL (2.7-4.5); Potassium 3.5 mmol/L (3.3-5.1); Sodium 143 mmol/L (135-145); Total Protein 7.7 g/dL (6.5-8.0)
[2024-05-28 06:30] LABS: Vancomycin Trough 13.5 mcg/mL (10.0-20.0)
--- NOTE | 2024-05-28 06:47 | HE.PHANOTE ---
Re: Vanco Pt's renal function decreasing. Trough returned at 13.5, pt is sub-therapeutic. Due to pt's renal function dose changed to q24h, and dose increased to 1500mg q24h, with predicted AUC 516, predicted trough 15.6. Next trough 05/28 @ 0600.
[2024-05-28] MEDS: 0.9 % Sodium Chloride Flush 3 ML SYRINGE IVFLUSH ×2 (07:55→16:52)
[2024-05-28] MEDS: Famotidine/PF 20 MG/2 ML VIAL IVPUSH (08:04)
[2024-05-28] MEDS: vancomycin HCL 1,500 MG in 0.9 % Sodium Chloride 500 ML 333.33 MG IV (08:13)
--- NOTE | 2024-05-28 10:13 | PM.CCPN ---
Subjective Subjective Date of Service: 05/28/24 Interval History: Mental status improved this morning, more calm and pleasant, following commands Remains on BiPAP support On Precedex and ketamine drips Critical Care Time (minutes): 35 Physical Exam Vital Signs: Vital Signs: Last Vital Signs Temp 98.8 F 05/28/24 08:00 Pulse 84 05/28/24 09:00 Resp 13 05/28/24 09:00 BP 122/77 05/28/24 09:00 Pulse Ox 98 05/28/24 09:00 O2 Del Method BiPAP 05/28/24 09:00 O2 Flow Rate 50 05/28/24 05:00 FiO2 50 05/28/24 09:00 BMI result Body Mass Index 27.4 General: Elderly male acute distress, ill appearing and tired appearing Nutritional Appearance: well nourished and overweight Eyes: appearance normal, both eyes and all related structures; Alignment and Position: alignment normal and position normal Neck: No lymphadenopathy, no thyromegaly Resp: bilateral air entry equal, occasional added sounds present Cardio: Regular rate, regular rhythm; Heart sounds: S1 normal heart sound present and S2 normal heart sound present GI: soft, nontender, no guarding, no hepatosplenomegaly : bladder normal to inspection, bladder normal to palpation, no renal angle tenderness Skin: no rashes or lesions noted and elasticity normal Neuro: More pleasant, following commands, moves all extremities Objective Data Labs 05/28/24 04:44 05/28/24 04:44 Labs: Laboratory Results - last 24 hr 05/27/24 05/27/24 05/27/24 12:06 17:32 22:21 WBC RBC Hgb Hct MCV MCH MCHC RDW Plt Count MPV Immature Gran % (Auto) Neut % (Auto) Lymph % (Auto) [place] % (Auto) Eos % (Auto) Baso % (Auto) Lymph # (Auto) [place] # (Auto) Eos # (Auto) Baso # (Auto) Abs Immat Gran (auto) Absolute Neuts (auto) Absolute Nucleated RBC Nucleated RBC % (auto) VBG pH 7.51 H VBG pCO2 44 VBG pO2 59 VBG HCO3 35 H VBG O2 Saturation 89.0 VBG Base Excess 11.6 Sodium Potassium Chloride Carbon Dioxide Anion Gap BUN Creatinine Estim Creat Clear Calc Estimated GFR POC Glucose 134 H 144 H Random Glucose Calcium Phosphorus Magnesium Total Bilirubin AST ALT Alkaline Phosphatase Total Protein Albumin Vancomycin Trough 05/28/24 05/28/24 05/28/24 00:11 04:44 04:50 WBC 17.4 H RBC 2.96 L Hgb 9.5 L Hct 29.8 L MCV 100.7 H MCH 32.1 MCHC 31.9 RDW 15.0 Plt Count 341 MPV 9.4 Immature Gran % (Auto) 2.0 H Neut % (Auto) 80.0 H Lymph % (Auto) 7.5 L [place] % (Auto) 7.9 Eos % (Auto) 1.9 Baso % (Auto) 0.7 Lymph # (Auto) 1.3 [place] # (Auto) 1.4 H Eos # (Auto) 0.3 Baso # (Auto) 0.1 Abs Immat Gran (auto) 0.35 H Absolute Neuts (auto) 14.0 H Absolute Nucleated RBC 0.000 Nucleated RBC % (auto) 0.0 VBG pH 7.59 H VBG pCO2 38 VBG pO2 28 VBG HCO3 37 H VBG O2 Saturation 43.0 VBG Base Excess 14.8 Sodium 143 Potassium 3.5 Chloride 97 Carbon Dioxide 31 H Anion Gap 19 BUN 12 Creatinine 1.17 Estim Creat Clear Calc 70.1 Estimated GFR > 60 POC Glucose 154 H Random Glucose 162 H Calcium 10.0 Phosphorus 3.5 Magnesium 1.8 Total Bilirubin 0.4 AST 21 ALT 11 Alkaline Phosphatase 97 Total Protein 7.7 Albumin 3.9 Vancomycin Trough 05/28/24 06:07 WBC RBC Hgb Hct MCV MCH MCHC RDW Plt Count MPV Immature Gran % (Auto) Neut % (Auto) Lymph % (Auto) [place] % (Auto) Eos % (Auto) Baso % (Auto) Lymph # (Auto) [place] # (Auto) Eos # (Auto) Baso # (Auto) Abs Immat Gran (auto) Absolute Neuts (auto) Absolute Nucleated RBC Nucleated RBC % (auto) VBG pH VBG pCO2 VBG pO2 VBG HCO3 VBG O2 Saturation VBG Base Excess Sodium Potassium Chloride Carbon Dioxide Anion Gap BUN Creatinine Estim Creat Clear Calc Estimated GFR POC Glucose Random Glucose Calcium Phosphorus Magnesium Total Bilirubin AST ALT Alkaline Phosphatase Total Protein Albumin Vancomycin Trough 13.5 Microbiology Microbiology Results: Microbiology 05/23/24 10:49 Tracheal Aspirate Gram Stain - Final 05/23/24 10:49 Tracheal Aspirate Sputum Culture - Final Methicillin Res Staph Aureus 05/05/24 07:50 Tracheal Aspirate Gram Stain - Final 05/05/24 07:50 Tracheal Aspirate Sputum Culture - Final Methicillin Res Staph Aureus 04/29/24 10:33 Blood - Venous Blood Culture - Final No growth after 5 days. 04/29/24 10:33 Blood - Venous Blood Culture - Final No growth after 5 days. Progress Note: A&P Assessment and plan (1) ETOH abuse: Status: Acute (2) Alcohol abuse with withdrawal: Status: Acute (3) Delirium tremens: Status: Acute (4) Thrombocytopenia: Status: Acute (5) Transaminitis: Status: Acute (6) DARRELL (acute kidney injury): Status: Acute (7) Metabolic acidosis: Status: Acute (8) Encephalopathy: Status: Acute (9) Spondylosis: Status: Acute (10) Aspiration pneumonia: Status: Acute Plan Neuro: Acute encephalopathy possibly due to metabolic encephalopathy On Precedex and ketamine drips for anxiolysis. Continue PRN Geodon for agitation QT interval normal. Close neurological status monitoring in the ICU every hour Continue Klonopin 0.5mg TID to prevent benzodiazepine withdrawal Cardiac: We will continue with IV Lasix 80 mg TID On Levophed for vasopressor support, titrate to keep map above 65 mm Hg Respiratory: Acute hypoxemic respiratory failure due to aspiration pneumonia. initially intubated on 04/30/2024 and extubated on 05/05/2024; reintubated on 05/13/2024 and extubated on 05/26/2024. Remained on BiPAP support overnight on 50% 24/09, we will switch him to OptiFlow as tolerated. Generally he requires a much higher oxygen present age 4 long OptiFlow Continue chest percussion therapy GI: on tube feeds are held Renal: normal renal function, fluid balance net-1.49 L yesterday, continue Lasix. We will closely monitor I's and O's Avoid nephrotoxic medications Heme: Chronic anemia, closely monitor H&H, transfuse for hemoglobin less than 7 grams/deciliter Endocrine: Blood sugars under control Sliding scale insulin as needed Infectious disease: Sputum cultures positive for MRSA 2 weeks ago, repeat sputum cultures positive for MRSA White count is stable On vanc and Zosyn Musculoskeletal: Decubitus ulcer prevention protocol Lines: peripheral Prophylaxis: Lovenox, pantoprazole Quality Stroke Does the patient have a stroke diagnosis?: No VTE Prior VTE?: No VTE Risk Level:: Medical - moderate - high VTE Device Contraindication: Treatment Not Indicated VTE Drug Contraindication: N/A - Med Ordered
[2024-05-28] MEDS: Furosemide 100 MG/10 ML VIAL 80 MG IVPUSH ×2 (10:54→22:10)
[2024-05-28 12:11] LABS: Glucose, Whole Blood 146 mg/dL (60-115)
[2024-05-28 18:45] LABS: Glucose, Whole Blood 146 mg/dL (60-115)
--- NOTE | 2024-05-28 19:04 | PC.NURSE ---
Assumed care @ 0700? Neuro: Alert, Oriented to self, follows simple commands, BANKS spontaneously, intermittent Restlessness requiring frequent redirection, 1:1 sitter at bedside.? On precedex gtt per APR. Ketamine gtt paused per APR. Resp: Transition from Bipap to HFNC? Cardiac: SR, levophed gtt paused per APR,? MAP goal >65. Laxis IVP per APR.? GI: LBM? 05/28 , +bowel sounds, NPO, failed nursing bedside swallowing, speech eval consult ordered, POC Q6hr, on sliding scale insulin per APR. . : Male purewick in place.? Skin: ?Impaired skin integrity - see skin assessment (repositioning maintained)? Infectious: IV antibiotics? Lines: peripheral IVs OOB to recliner for approx.? 4hour , 2-3 assist with Jasmyne steady
[2024-05-28] MEDS: dexmedeTOMIDine HCL/NS 400 MCG/100 ML PLAST..BAG 32.24 MCG IVCONT (21:35)
[2024-05-28] MEDS: Norepinephrine Bitartrate/D5W 8 MG/250 ML PLAST..BAG 4.61 MG IVCONT (21:37)
[2024-05-28 23:53] LABS: Glucose, Whole Blood 167 mg/dL (60-115)
[2024-05-29] VITALS (42 sets, daily range): BP systolic 88–193; BP diastolic 55–109; PULSE 67–116; RESP 11–23; TEMP 36.4–37.3; O2SAT 88–97; BMI 24.0
[2024-05-29] MEDS: Heparin Sodium,Porcine 5,000 UNIT/ML VIAL 5000 UNIT SUBCUT ×4 (00:10→22:54)
[2024-05-29] MEDS: dexmedeTOMIDine HCL/NS 400 MCG/100 ML PLAST..BAG 37.2 MCG IVCONT (00:11)
[2024-05-29] MEDS: 0.9 % Sodium Chloride Flush 3 ML SYRINGE IVFLUSH ×4 (00:16→20:50)
[2024-05-29] MEDS: Albuterol/Iprat 2.5/0.5MG 3 ML AMPUL.NEB INHALE ×4 (01:38→19:55)
[2024-05-29] MEDS: dexmedeTOMIDine HCL/NS 400 MCG/100 ML PLAST..BAG 32.24 MCG IVCONT (02:48)
[2024-05-29] MEDS: Piperacillin Sodium/Tazobactam 4.5 GM in 0.9 % Sodium Chloride 100 ML IV ×4 (03:48→20:49)
[2024-05-29 05:13] LABS: VBG Base Excess 13.6 mmol/L; VBG HCO3 38 mmol/L (22-26); VBG pCO2 47 mmHg; VBG pH 7.51 (7.32-7.43); VBG pO2 46 mmHg
[2024-05-29 05:14] LABS: Venous Blood Gas Refer to POC result
[2024-05-29 05:44] LABS: MANUAL DIFF FLAG NO
[2024-05-29 05:47] LABS: Basophils Absolute Auto 0.1 X10*3/uL (0.0-0.2); Basophils Percent Auto 0.7 % (0-2); Eosinophils Absolute Auto 0.4 X10*3/uL (0.0-0.4); Eosinophils Percent Auto 3.8 % (0-4); Hematocrit 27.5 % (42.0-52.0); Hemoglobin 8.8 g/dl (14.0-18.0); Imm Gran Abs Auto 0.19 X10*3/uL (0.00-0.03); Imm Gran Pct Auto 1.9 % (0.0-0.4); Lymphocytes Absolute Auto 1.2 X10*3/uL (1.2-4.9); Mean Corpuscular Hemoglobin 31.9 pg (27.0-33.0); Mean Corpuscular Volume 99.6 fL (80.0-98.0); Mean Platelet Volume 9.4 fL (9.4-12.4); Monocytes Absolute Auto 1.1 X10*3/uL (0.1-1.2); Monocytes Percent Auto 10.3 % (2-11); Neutrophils Absolute Auto 7.3 x10*3/uL (2.0-8.3); Neutrophils Percent Auto 71.3 % (45-73); Platelet Count 305 X10*3/uL (160-400); Red Blood Count 2.76 X10*6/uL (4.60-5.80); Red Cell Distribution Width 14.9 % (11.0-16.0); White Blood Count 10.2 X10*3/uL (4.8-10.8)
[2024-05-29 06:05] LABS: Alanine Aminotransferase 10 U/L (0-40); Albumin Level 3.7 g/dL (3.5-5.0); Anion Gap 18 (12-20); Aspartate Amino Transferase 21 U/L (5-37); Bilirubin Total 0.3 mg/dL (0.0-1.0); Blood Urea Nitrogen 15 mg/dL (9-16); Calcium 9.6 mg/dL (8.4-10.2); Carbon Dioxide 32 mmol/L (22-29); Chloride 100 mmol/L (96-108); Creatinine Clr Calc Pharmacy 61.2; Estimated Glomerular Filt Rate 55; Glucose Random 153 mg/dL (60-115); Magnesium 1.8 mg/dL (1.6-2.6); Phosphorus 3.8 mg/dL (2.7-4.5); Potassium 2.9 mmol/L (3.3-5.1); Sodium 147 mmol/L (135-145); Total Protein 7.3 g/dL (6.5-8.0)
[2024-05-29 06:08] LABS: Alkaline Phosphatase 80 U/L (39-117)
[2024-05-29] MEDS: dexmedeTOMIDine HCL/NS 400 MCG/100 ML PLAST..BAG 27.28 MCG IVCONT (06:24)
[2024-05-29] MEDS: Potassium Chloride/H20 10 MEQ/100 ML PIGGYBACK 100 MEQ IV ×5 (06:35→22:54)
[2024-05-29] MEDS: Levothyroxine Sodium 100 MCG/5 ML VIAL IVPUSH (06:35)
--- NOTE | 2024-05-29 06:52 | HE.PHANOTE ---
Re: Tessao Renal function continues to decline. Trough returned at 17.0. Dose reduced to 1250 q24h with predicted AUC 491, predicted trough 15.3. Pt is running 2 pts higher in tough than expected. Next trough to be drawn 05/30 @ 0600.
[2024-05-29] MEDS: vancomycin HCL 1,250 MG in 0.9 % Sodium Chloride 250 ML 166.67 MG IV (08:19)
[2024-05-29] MEDS: Famotidine/PF 20 MG/2 ML VIAL IVPUSH (09:00)
[2024-05-29] MEDS: dexmedeTOMIDine HCL/NS 400 MCG/100 ML PLAST..BAG 12.4 MCG IVCONT (09:35)
[2024-05-29] MEDS: Furosemide 100 MG/10 ML VIAL 80 MG IVPUSH ×2 (10:12→20:49)
--- NOTE | 2024-05-29 11:02 | P.PNCC_ITS ---
Subjective Subjective Date of Service: 05/29/24 Interval History: Improving mentation more calm and pleasant, currently only on Precedex 0.5 On high-flow oxygen 45% at 50 L/min Critical Care Time (minutes): 35 Physical Exam 2 Vital Signs: Vital Signs: Last Vital Signs Temp 98.4 F 05/29/24 08:00 Pulse 85 05/29/24 10:00 Resp 14 05/29/24 10:00 BP 172/109 H 05/29/24 10:00 Pulse Ox 97 05/29/24 10:00 O2 Del Method High Flow Nasal C annula 05/29/24 10:00 O2 Flow Rate 50 05/29/24 10:00 FiO2 55 05/29/24 10:00 BMI result Body Mass Index 24.0 General: In somewhat acute distress, chronic ill appearing and tired appearing Nutritional Appearance: well nourished and overweight Eyes: appearance normal, both eyes and all related structures; Alignment and Position: alignment normal and position normal Neck: No lymphadenopathy, no thyromegaly Resp: bilateral air entry equal, bilateral crackles heard Cardio: Regular rate, regular rhythm; Heart sounds: S1 normal heart sound present and S2 normal heart sound present GI: soft, nontender, no guarding, no hepatosplenomegaly : bladder normal to inspection, bladder normal to palpation, no renal angle tenderness Skin: no rashes or lesions noted and elasticity normal Neuro: oriented to person, oriented to place, oriented to time and moves all extremities Objective Data Labs 05/29/24 05:07 05/29/24 05:07 Labs: Laboratory Results - last 24 hr 05/28/24 05/28/24 05/28/24 12:08 18:37 23:49 WBC RBC Hgb Hct MCV MCH MCHC RDW Plt Count MPV Immature Gran % (Auto) Neut % (Auto) Lymph % (Auto) [place] % (Auto) Eos % (Auto) Baso % (Auto) Lymph # (Auto) [place] # (Auto) Eos # (Auto) Baso # (Auto) Abs Immat Gran (auto) Absolute Neuts (auto) Absolute Nucleated RBC Nucleated RBC % (auto) VBG pH VBG pCO2 VBG pO2 VBG HCO3 VBG O2 Saturation VBG Base Excess Sodium Potassium Chloride Carbon Dioxide Anion Gap BUN Creatinine Estim Creat Clear Calc Estimated GFR POC Glucose 146 H 146 H 167 H Random Glucose Calcium Phosphorus Magnesium Total Bilirubin AST ALT Alkaline Phosphatase Total Protein Albumin Random Vancomycin 05/29/24 05/29/24 05/29/24 05:07 05:09 06:14 WBC 10.2 RBC 2.76 L Hgb 8.8 L Hct 27.5 L MCV 99.6 H MCH 31.9 MCHC 32.0 RDW 14.9 Plt Count 305 MPV 9.4 Immature Gran % (Auto) 1.9 H Neut % (Auto) 71.3 Lymph % (Auto) 12.0 L [place] % (Auto) 10.3 Eos % (Auto) 3.8 Baso % (Auto) 0.7 Lymph # (Auto) 1.2 [place] # (Auto) 1.1 Eos # (Auto) 0.4 Baso # (Auto) 0.1 Abs Immat Gran (auto) 0.19 H Absolute Neuts (auto) 7.3 Absolute Nucleated RBC 0.000 Nucleated RBC % (auto) 0.0 VBG pH 7.51 H VBG pCO2 47 VBG pO2 46 VBG HCO3 38 H VBG O2 Saturation 77.0 VBG Base Excess 13.6 Sodium 147 H Potassium 2.9 L* Chloride 100 Carbon Dioxide 32 H Anion Gap 18 BUN 15 Creatinine 1.34 Estim Creat Clear Calc 61.2 Estimated GFR 55 POC Glucose Random Glucose 153 H Calcium 9.6 Phosphorus 3.8 Magnesium 1.8 Total Bilirubin 0.3 AST 21 ALT 10 Alkaline Phosphatase 80 Total Protein 7.3 Albumin 3.7 Random Vancomycin 17.0 Microbiology Microbiology Results: Microbiology 05/23/24 10:49 Tracheal Aspirate Gram Stain - Final 05/23/24 10:49 Tracheal Aspirate Sputum Culture - Final Methicillin Res Staph Aureus 05/05/24 07:50 Tracheal Aspirate Gram Stain - Final 05/05/24 07:50 Tracheal Aspirate Sputum Culture - Final Methicillin Res Staph Aureus 04/29/24 10:33 Blood - Venous Blood Culture - Final No growth after 5 days. 04/29/24 10:33 Blood - Venous Blood Culture - Final No growth after 5 days. Progress Note: A&P Assessment and plan (1) Status post fall: Status: Acute (2) ETOH abuse: Status: Acute (3) Alcohol abuse with withdrawal: Status: Acute (4) Delirium tremens: Status: Acute (5) Thrombocytopenia: Status: Acute (6) Metabolic acidosis: Status: Acute Plan Neuro: Acute encephalopathy possibly due to metabolic encephalopathy On Precedex 0.5 mcg for anxiolysis; did not require any PRN Geodon for agitation QT interval normal. Close neurological status monitoring in the ICU every hour Continue Klonopin 0.5mg TID to prevent benzodiazepine withdrawal Cardiac: Hypertension:will add PRN labetolol as he hasnt cleared swallow eval for meds Respiratory: Acute hypoxemic respiratory failure due to aspiration pneumonia. initially intubated on 04/30/2024 and extubated on 05/05/2024; reintubated on 05/13/2024 and extubated on 05/26/2024. Remained on BiPAP support overnight on 50% 24/09, we will switch him to OptiFlow as tolerated. Generally he requires a much higher oxygen present age 4 long OptiFlow Continue chest percussion therapy GI: on tube feeds are held Renal: normal renal function, fluid balance net even; continue Lasix IV b.i.d.. We will closely monitor I's and O's Avoid nephrotoxic medications Heme: Chronic anemia, closely monitor H&H, transfuse for hemoglobin less than 7 grams/deciliter Endocrine: Blood sugars under control Sliding scale insulin as needed Infectious disease: Sputum cultures positive for MRSA 2 weeks ago, repeat sputum cultures positive for MRSA White count is stable On vanc and Zosyn Musculoskeletal: Decubitus ulcer prevention protocol Lines: peripheral Prophylaxis: Lovenox, pantoprazole Quality Stroke Does the patient have a stroke diagnosis?: No VTE Prior VTE?: No VTE Risk Level:: Medical - moderate - high VTE Device Contraindication: Treatment Not Indicated VTE Drug Contraindication: N/A - Med Ordered
--- NOTE | 2024-05-29 11:28 | MHC.SL.SWA ---
Speech Pathologist Impression: overt clinical s/s aspiration across all consistencies Risk of Aspiration Due to: History of Pneumonia Hx of Recent Extubation Dysphasia Diet Status: NPO Liquid Consistency and Strategies for Safe Swallow: Liquid Intake Recommendation: NPO Solid Food Consistency: Dietary Recommendations: NPO Oral Medication Intake: NPO Please contact the pharmacy regarding appropriate crushable or liquid drug formulations that are available whenever modified delivery is recommended. Compensatory Strategies and Precautions to be Taken for Safe Swallow: Sitting Upright (90 deg) Supervision While Eating and Drinking for Safe Swallow: PO with ENVIRONMENTAL COORDINATOR Swallowing Recommended Treatments: Compens. Strategy Educat. Recommendation for Speech: Inpatient Speech Therapy Modified Barium Swallow Study - Inpatient Modified Barium Swallow Study - Outpatient Comment: Pt seen for a new ENVIRONMENTAL COORDINATOR swallow evaluation on 05/29 after failing RN swallow screen on 05/28. Pt had previously been recommended NPO by ENVIRONMENTAL COORDINATOR from 05/06-05/11. Pt tolerated trace amount of water via swab and ice chips on this date. Recommend NPO d/t overt clinical s/s aspiration across all consistencies. Ice chips OK while seated upright w/ RN supervision. Provide oral care for hygiene and comfort. Elevate HoB at least 30 degrees. Pt at increased risk of aspiration d/t recent repeat and prolonged intubation (05/01-05/05 and 05/13-05/26). Due to recent intubations, concerns for repeated aspiration PNA, and history of neck surgery; recommend MBSS. Pt reports hx of hospitalization at [facility] with possible prior ENVIRONMENTAL COORDINATOR tx; ENVIRONMENTAL COORDINATOR reached out to [facility] to inquire about any ENVIRONMENTAL COORDINATOR findings at their facility w/ no response yet. MD and RN notified of recommendations. Frequency/Duration: daily M-F and weekends if needed Mason Foreman/Superintendant Clinican/Clinical Fellow: No Supervisory Statement: I have reviewed and agree with the student/clinical fellow's documentation: N/A Speech Language Pathologist: Sofia Martínez M.A., CCC-ENVIRONMENTAL COORDINATOR
[2024-05-29 11:36] LABS: Glucose, Whole Blood 133 mg/dL (60-115)
[2024-05-29] MEDS: Dextrose 5 % 1,000 ML 50 ML IVCONT (11:46)
[2024-05-29] MEDS: Labetalol HCL 100 MG/20 ML VIAL 20 MG IVPUSH ×2 (11:48→12:12)
[2024-05-29] MEDS: hydrALAZINE HCl 20 MG/ML VIAL IVPUSH (13:13)
--- NOTE | 2024-05-29 17:39 | PC.NURSE ---
Care assumed @ 0700? Neuro: Alert, Oriented to self, follows simple commands, BANKS spontaneously, intermittent restlessness requiring frequent redirection, 1:1 sitter at bedside. Precedex gtt paused per APR. Resp:On HFNC, clear lung sounds?? Cardiac: SR-ST, systolic BP elevated, labetalol and hydralazine IVP given prn per APR, Laxis IVP per APR. Dr. Huertas made aware of the above vitals.? GI: LBM? 05/29 , +bowel sounds, NPO, speech therapist following, POC Q6hr, on sliding scale insulin per APR. . : Male purewick in place.? Skin: ?Impaired skin integrity - see skin assessment (repositioning maintained)? Infectious: IV antibiotics? Lines: peripheral IVs Jasmyne steady to bedside commode and recliner.?
[2024-05-29 17:56] LABS: Glucose, Whole Blood 159 mg/dL (60-115)
[2024-05-29] MEDS: Insulin Lispro 100 UNIT/ML 3 ML VIAL SUBCUT (17:58)
[2024-05-29 21:14] LABS: Alanine Aminotransferase 19 U/L (0-40); Albumin Level 4.1 g/dL (3.5-5.0); Alkaline Phosphatase 86 U/L (39-117); Anion Gap 21 (12-20); Aspartate Amino Transferase 41 U/L (5-37); Bilirubin Total 0.3 mg/dL (0.0-1.0); Blood Urea Nitrogen 17 mg/dL (9-16); Calcium 9.9 mg/dL (8.4-10.2); Carbon Dioxide 27 mmol/L (22-29); Chloride 100 mmol/L (96-108); Creatinine Clr Calc Pharmacy 56.6; Estimated Glomerular Filt Rate 50; Glucose Random 148 mg/dL (60-115); Potassium 3.1 mmol/L (3.3-5.1); Sodium 145 mmol/L (135-145); Total Protein 7.9 g/dL (6.5-8.0)
[2024-05-30] VITALS (34 sets, daily range): BP systolic 108–182; BP diastolic 67–108; PULSE 82–123; RESP 14–25; TEMP 36.1–37.5; O2SAT 89–95; BMI 24.0
[2024-05-30] MEDS: Potassium Chloride/H20 10 MEQ/100 ML PIGGYBACK 100 MEQ IV ×7 (00:12→13:14)
[2024-05-30] MEDS: Albuterol/Iprat 2.5/0.5MG 3 ML AMPUL.NEB INHALE ×3 (01:32→19:01)
[2024-05-30] MEDS: fentaNYL citrate/PF 100 MCG/2 ML VIAL 50 MCG IVPUSH (01:56)
[2024-05-30] MEDS: Piperacillin Sodium/Tazobactam 4.5 GM in 0.9 % Sodium Chloride 100 ML IV ×4 (03:15→21:59)
[2024-05-30] MEDS: Labetalol HCL 100 MG/20 ML VIAL 20 MG IVPUSH (04:15)
[2024-05-30 04:49] LABS: VBG Base Excess 7.4 mmol/L; VBG HCO3 32 mmol/L (22-26); VBG pCO2 47 mmHg; VBG pH 7.44 (7.32-7.43); VBG pO2 61 mmHg
[2024-05-30 04:50] LABS: Venous Blood Gas Refer to POC result
[2024-05-30] MEDS: Levothyroxine Sodium 100 MCG/5 ML VIAL IVPUSH (04:51)
[2024-05-30 05:09] LABS: MANUAL DIFF FLAG NO
[2024-05-30 05:10] LABS: Basophils Absolute Auto 0.1 X10*3/uL (0.0-0.2); Eosinophils Absolute Auto 0.4 X10*3/uL (0.0-0.4); Eosinophils Percent Auto 3.5 % (0-4); Hematocrit 30.4 % (42.0-52.0); Hemoglobin 9.9 g/dl (14.0-18.0); Imm Gran Abs Auto 0.24 X10*3/uL (0.00-0.03); Lymphocytes Absolute Auto 1.3 X10*3/uL (1.2-4.9); Lymphocytes Percent Auto 10.8 % (20-40); Mean Corpuscular HGB Conc 32.6 g/dl (31.0-36.0); Mean Corpuscular Hemoglobin 32.6 pg (27.0-33.0); Mean Platelet Volume 9.1 fL (9.4-12.4); Monocytes Absolute Auto 1.4 X10*3/uL (0.1-1.2); Monocytes Percent Auto 11.4 % (2-11); Neutrophils Absolute Auto 8.6 x10*3/uL (2.0-8.3); Neutrophils Percent Auto 71.3 % (45-73); Platelet Count 346 X10*3/uL (160-400); Red Blood Count 3.04 X10*6/uL (4.60-5.80); Red Cell Distribution Width 15.2 % (11.0-16.0); White Blood Count 12.1 X10*3/uL (4.8-10.8)
[2024-05-30 05:30] LABS: Alanine Aminotransferase 20 U/L (0-40); Anion Gap 23 (12-20); Aspartate Amino Transferase 36 U/L (5-37); Bilirubin Total 0.4 mg/dL (0.0-1.0); Blood Urea Nitrogen 19 mg/dL (9-16); Calcium 9.8 mg/dL (8.4-10.2); Carbon Dioxide 27 mmol/L (22-29); Chloride 99 mmol/L (96-108); Creatinine Clr Calc Pharmacy 49.1; Estimated Glomerular Filt Rate 42; Glucose Random 151 mg/dL (60-115); Magnesium 1.7 mg/dL (1.6-2.6); Phosphorus 3.7 mg/dL (2.7-4.5); Potassium 3.2 mmol/L (3.3-5.1); Sodium 146 mmol/L (135-145); Total Protein 7.8 g/dL (6.5-8.0)
[2024-05-30 05:33] LABS: Alkaline Phosphatase 84 U/L (39-117)
[2024-05-30 06:38] LABS: Vancomycin Random 19.3 mcg/mL (15-20)
[2024-05-30] MEDS: Heparin Sodium,Porcine 5,000 UNIT/ML VIAL 5000 UNIT SUBCUT ×3 (08:34→23:27)
[2024-05-30] MEDS: 0.9 % Sodium Chloride Flush 3 ML SYRINGE IVFLUSH ×3 (08:34→21:59)
[2024-05-30] MEDS: Famotidine/PF 20 MG/2 ML VIAL IVPUSH (08:34)
[2024-05-30] MEDS: vancomycin HCL 1,000 MG in 0.9 % Sodium Chloride 250 ML 270 MG IV (08:35)
--- NOTE | 2024-05-30 09:25 | P.PNCC_ITS ---
Subjective Subjective Date of Service: 05/30/24 Interval History: 58-year-old gentleman with underlying alcohol dependence, obesity, diabetes mellitus being admitted for hyperglycemia and alcohol withdrawal on background of acute metabolic acidosis with acute renal failure and hyponatremia likely secondary to beer potomania. Required intubation on 04/30/2024 secondary to high sedative drip requirements for underlying delirium tremens. Extubated on 05/05, however remains with significant toxic encephalopathy requiring Precedex drip. Reintubated on 05/13/2024 secondary to high sedative requirements. CT chest on 05/21/2024 with small bilateral pleural effusions, but bibasilar atelectasis. Extubated 05/26/2024. Titrated off sedative drips. No events overnight. Critical Care Time (minutes): 0 Physical Exam 2 Vital Signs: Vital Signs: Last Vital Signs Temp 98.2 F 05/30/24 07:58 Pulse 98 05/30/24 09:00 Resp 15 05/30/24 09:00 BP 156/96 H 05/30/24 09:00 Pulse Ox 95 05/30/24 09:00 O2 Del Method High Flow Nasal C annula 05/30/24 09:00 O2 Flow Rate 55 05/30/24 09:00 FiO2 50 05/30/24 09:00 BMI result Body Mass Index 24.0 Const: General: no acute distress, alert and awake Eyes: Sclerae: sclerae normal EOM: EOMs intact bilaterally Neck: Neck: Yes no lymphadenopathy, Yes trachea midline and Yes supple Resp: Effort & Inspection: normal respiratory effort and no respiratory distress Auscultation: crackles (Bibasilar) Cardio: Rate: tachycardic Rhythm: regular rhythm Heart sounds: no gallops, no murmurs and no rubs GI: Palpation (GI): Soft to palpation and Other GI palpation findings present ( Nontender) Auscultation: normal bowel sounds Extrem: General: No clubbing, No cyanosis and Yes edema (Trace bilateral) Objective Data Labs 05/30/24 04:44 05/30/24 04:44 Labs: Laboratory Results - last 24 hr 05/29/24 05/29/24 05/29/24 11:32 17:52 20:33 WBC RBC Hgb Hct MCV MCH MCHC RDW Plt Count MPV Immature Gran % (Auto) Neut % (Auto) Lymph % (Auto) [place] % (Auto) Eos % (Auto) Baso % (Auto) Lymph # (Auto) [place] # (Auto) Eos # (Auto) Baso # (Auto) Abs Immat Gran (auto) Absolute Neuts (auto) Absolute Nucleated RBC Nucleated RBC % (auto) VBG pH VBG pCO2 VBG pO2 VBG HCO3 VBG O2 Saturation VBG Base Excess Sodium 145 Potassium 3.1 L Chloride 100 Carbon Dioxide 27 Anion Gap 21 H BUN 17 H Creatinine 1.45 H Estim Creat Clear Calc 56.6 Estimated GFR 50 POC Glucose 133 H 159 H Random Glucose 148 H Calcium 9.9 Phosphorus Magnesium Total Bilirubin 0.3 AST 41 H ALT 19 Alkaline Phosphatase 86 Total Protein 7.9 Albumin 4.1 Random Vancomycin 05/30/24 05/30/24 05/30/24 04:44 04:45 06:03 WBC 12.1 H RBC 3.04 L Hgb 9.9 L Hct 30.4 L MCV 100.0 H MCH 32.6 MCHC 32.6 RDW 15.2 Plt Count 346 MPV 9.1 L Immature Gran % (Auto) 2.0 H Neut % (Auto) 71.3 Lymph % (Auto) 10.[address] [place] % (Auto) 11.4 H Eos % (Auto) 3.5 Baso % (Auto) 1.0 Lymph # (Auto) 1.3 [place] # (Auto) 1.4 H Eos # (Auto) 0.4 Baso # (Auto) 0.1 Abs Immat Gran (auto) 0.24 H Absolute Neuts (auto) 8.6 H Absolute Nucleated RBC 0.000 Nucleated RBC % (auto) 0.0 VBG pH 7.44 H VBG pCO2 47 VBG pO2 61 VBG HCO3 32 H VBG O2 Saturation 83.0 VBG Base Excess 7.4 Sodium 146 H Potassium 3.2 L Chloride 99 Carbon Dioxide 27 Anion Gap 23 H BUN 19 H Creatinine 1.67 H Estim Creat Clear Calc 49.1 Estimated GFR 42 POC Glucose Random Glucose 151 H Calcium 9.8 Phosphorus 3.7 Magnesium 1.7 Total Bilirubin 0.4 AST 36 ALT 20 Alkaline Phosphatase 84 Total Protein 7.8 Albumin 4.0 Random Vancomycin 19.3 Microbiology Microbiology Results: Microbiology 05/23/24 10:49 Tracheal Aspirate Gram Stain - Final 05/23/24 10:49 Tracheal Aspirate Sputum Culture - Final Methicillin Res Staph Aureus 03/27/25 07:50 Tracheal Aspirate Gram Stain - Final 05/05/24 07:50 Tracheal Aspirate Sputum Culture - Final Methicillin Res Staph Aureus 04/29/24 10:33 Blood - Venous Blood Culture - Final No growth after 5 days. 04/29/24 10:33 Blood - Venous Blood Culture - Final No growth after 5 days. Progress Note: A&P Assessment and plan (1) Delirium tremens: Status: Acute (2) Encephalopathy: Status: Acute (3) Acute respiratory failure with hypoxia: Status: Acute (4) Aspiration pneumonia: Status: Acute Plan Assessment: 58-year-old gentleman being admitted with alcohol withdrawal further complicated by acute hyponatremia likely secondary to beer potomania, acute renal failure with metabolic acidosis and hypoglycemia Plan: Neuro: Alcohol withdrawal and resultant toxic encephalopathy, now with significant improvement. Titrated off sedative drips. Continue on Seroquel. Cardiac: No acute issues. Pulmonary: Initially required intubation for high-dose sedative drips and also hypoxia secondary to pulmonary aspiration. Extubated 05/05/2024. Required re- intubation on 05/13/2024 secondary to high sedative treatment requirements, extubated 05/26/2024. Underlying MRSA aspiration pneumonia. CT chest on 05/21/2024 with small bilateral pleural effusions and bibasilar atelectasis. Continue to titrate off supplemental oxygen as tolerated. Renal: No acute issues. Endo: No acute issues. Underlying diabetes mellitus, continue sliding scale insulin. Underlying hypothyroidism, continue Synthroid. GI: No acute issues. ID: Aspiration MRSA pneumonia, continue vancomycin. Heme/Onc: No acute issues. Psych: No acute issues. Miscellaneous: No acute issues. Prophylaxis: Heparin Diet: PPI Quality Stroke Does the patient have a stroke diagnosis?: No VTE Prior VTE?: No VTE Risk Level:: Medical - moderate - high VTE Device Contraindication: Treatment Not Indicated VTE Drug Contraindication: N/A - Med Ordered
--- NOTE | 2024-05-30 09:36 | MHC.CLN ---
PT CURRENTLY NPO DAY 3 DISCUSSED AT ROUNDS WITH MD OLIVO UNABLE TO BE PLACED R/T PT BEHAVIORS TO START PPN PER MD REVIEWED LABS DISCUSSED WITH PHARMACY RECOMMEND PPN AT 70ML/HR TO PROVIDE 857KCALS, 168G DEXTROSE, 71G PROTEIN (.95G/KG) REPLETE LYTES NEEDED SEE FULL CLINICAL NUTRITION ASSESSMENT
[2024-05-30 12:13] LABS: Glucose, Whole Blood 247 mg/dL (60-115)
[2024-05-30] MEDS: hydrALAZINE HCl 20 MG/ML VIAL IVPUSH (13:15)
[2024-05-30] MEDS: Insulin Lispro 100 UNIT/ML 3 ML VIAL SUBCUT (13:15)
--- NOTE | 2024-05-30 13:40 | MHC.SL.SWA ---
Speech Pathologist Impression: PMH pharyngeal dysphagia s/p remote neck surgery, lengthy intubation period this hospital stay Risk of Aspiration Due to: History of Pneumonia Hx of Recent Extubation Dysphasia Diet Status: Pt seen for dysphagia tx, re-assessment of swallow. Pt sitting upright in chair, alert to others, conversant in simple conversational exchanges. Pt on high flow O2, oxygen saturation remained unchanged throughout trials in this re-assessment (low 90s). Liquid Consistency and Strategies for Safe Swallow: Liquid Intake Recommendation: Thin Liquid Intake Strategies: Small Sips Solid Food Consistency: Dietary Recommendations: Pureed (NDD1) Additional Modifications to Solid Foods: Recc NDD1 with thins, straws ok, aspiration precautions, meds in puree, cues to slow pace, supervision with PO. Recc MBSS when pt respiratory status more stable. Oral Medication Intake: Whole with Puree Please contact the pharmacy regarding appropriate crushable or liquid drug formulations that are available whenever modified delivery is recommended. Compensatory Strategies and Precautions to be Taken for Safe Swallow: Sitting Upright (90 deg) Small Bites and Sips Alternate Liquids/Solids Rate of Ingestion Change Supervision While Eating and Drinking for Safe Swallow: Total Supervision (1:1) Foods to Avoid: Swallowing Recommended Treatments: Compens. Strategy Educat. Recommendation for Speech: Inpatient Speech Therapy Modified Barium Swallow Study - Inpatient Modified Barium Swallow Study - Outpatient Comment: Pt endorsed hx of dysphagia s/p neck surgery years ago, and RN noted pt sister reported he has chronically coughed s/p PO intake. Pt trialed with thins and purees. Pt tolerated sips of thins by cup and straw, and tsps of puree across short period of trials with efficient oropharygneal coordination, no overt s/s of aspiration observed. Two coughs post deglutition occurred within length of trials. Pt voicing remained absent of wetness upon speaking. Pt benefitted from cues to reduce speed of intake and size of bolus when feeding himself. MULTI SPINDLE OPERATOR [facility] with RN and MD[facility] with thins, straws ok, aspiration precautions, meds in puree, cues to slow pace, supervision with PO. Recc MBSS when pt respiratory status more stable. Frequency/Duration: daily M-F and weekends if needed Date Range for Service Req: Timeline to reassess: Scan Coordinator Clinican/Clinical Fellow: No Supervisory Statement: I have reviewed and agree with the student/clinical fellow's documentation: N/A Speech Language Pathologist: Vanessa Alexander M.S., [facility]-MULTI SPINDLE OPERATOR
[2024-05-30] MEDS: ondansetron HCL 4 MG/2 ML VIAL IVPUSH (15:34)
[2024-05-30 17:33] LABS: Glucose, Whole Blood 131 mg/dL (60-115)
[2024-05-30] MEDS: Valproic Acid Liquid 250 MG/5 ML SOLUTION 500 MG PO ×2 (17:39→20:00)
--- NOTE | 2024-05-30 18:24 | PC.NURSE ---
Assumed care of patient 0700. RASS 0, alert, calm and cooperative. See Shift Assessment. IV Zosyn and IV Vanco given per orders. Potassium replacement IV initiated when delivered from pharmacy. Plan per MD to start PPN nutrition 21:00 05/30/24. Pt up to recliner chair 0900. Pt returned to bed 15:30 due to fatigue. Speech therapy evaluated patient. Advanced diet to diabetic, puree NDD1, thin liquids. Pt able to take PO medications in puree. Pt states nausea and upset stomach. 0% lunch consumed. 25% dinner consumed. PRN Zofran given once this shift. Physical therapy at bedside approx 11:30 to work with patient. Pt tolerated well, following commands and cues. Sisters Corinne and Galina visited at bedside. Daughter Laurie and Emergency contact Hetal updated via phone. Pt restless at 18:00, attempting to get OOB after a nap. Pt reoriented to surroundings, lights turned on, reminded of plan of care, redirected with eating dinner. Pt able to take PO Depakote, effect pending.
[2024-05-30] MEDS: QUEtiapine Fumarate 100 MG TABLET PO (20:00)
[2024-05-30 23:31] LABS: Glucose, Whole Blood 147 mg/dL (60-115)
[2024-05-31] VITALS (30 sets, daily range): BP systolic 88–157; BP diastolic 59–103; PULSE 85–128; RESP 12–25; TEMP 36.8–37.2; O2SAT 88–96; BMI 27.2
[2024-05-31] MEDS: Albuterol/Iprat 2.5/0.5MG 3 ML AMPUL.NEB INHALE ×4 (00:16→20:12)
[2024-05-31] MEDS: Piperacillin Sodium/Tazobactam 4.5 GM in 0.9 % Sodium Chloride 100 ML IV ×4 (03:04→21:53)
[2024-05-31] MEDS: fentaNYL citrate/PF 100 MCG/2 ML VIAL 50 MCG IVPUSH ×3 (03:13→11:30)
--- NOTE | 2024-05-31 03:41 | PC.NURSE ---
CARE ASSUMED 7PM..AWAKE..ORIENTED TO PERSON ONLY...INTERMITTANTLY RESTLESS..OOB TO BEDSIDE COMMODE WITH 2 ASSIST AT SHIFT CHANGE..PASSED SMALL LOOSE BROWN STOOL..BACK TO BED..INCREASED O2 DEMAND STARTING 7PM..O2 TITRATED FROM 2 L/M TO 4 L/M TO 6 L/M FOR SAO2 86-90%...SAO2 GOAL PER PROVIDER 88% OR >. O2 TITRATED TO 7 L/M WITH SAO2 87-88%...RETURNED TO [facility] 50 L/M AND FIO2 50% PER PROVIDER...HS SEROQUEL AND DEPAKOTE GIVEN IN APPLESAUCE WITH FEW SIPS H20....GRADUAL RESTFUL EFFECT..NAPPING INTERMITTANTLY BUT AGITATED WHEN AWAKE FOR MEDS AND/OR CARE...SINUS TACH HR 100'S-110'S..PURWIK EXTERNAL CATHETER WITH DEEP YELLOW URINE...NO RESPIRATORY DISTRESS..1:1 SITTER REMAINS AT BEDSIDE FOR SAFETY
[2024-05-31] MEDS: Levothyroxine Sodium 100 MCG/5 ML VIAL IVPUSH (05:04)
[2024-05-31 05:21] LABS: VBG Base Excess 11.5 mmol/L; VBG HCO3 35 mmol/L (22-26); VBG pCO2 41 mmHg; VBG pH 7.53 (7.32-7.43); VBG pO2 61 mmHg
[2024-05-31 05:54] LABS: MANUAL DIFF FLAG NO
[2024-05-31 05:56] LABS: Basophils Absolute Auto 0.1 X10*3/uL (0.0-0.2); Basophils Percent Auto 1.2 % (0-2); Eosinophils Absolute Auto 0.8 X10*3/uL (0.0-0.4); Eosinophils Percent Auto 9.5 % (0-4); Hematocrit 30.5 % (42.0-52.0); Hemoglobin 9.6 g/dl (14.0-18.0); Imm Gran Abs Auto 0.14 X10*3/uL (0.00-0.03); Imm Gran Pct Auto 1.7 % (0.0-0.4); Lymphocytes Absolute Auto 1.3 X10*3/uL (1.2-4.9); Mean Corpuscular HGB Conc 31.5 g/dl (31.0-36.0); Mean Corpuscular Hemoglobin 32.1 pg (27.0-33.0); Mean Platelet Volume 9.3 fL (9.4-12.4); Monocytes Percent Auto 12.7 % (2-11); Neutrophils Absolute Auto 4.8 x10*3/uL (2.0-8.3); Neutrophils Percent Auto 58.9 % (45-73); Platelet Count 332 X10*3/uL (160-400); Red Blood Count 2.99 X10*6/uL (4.60-5.80); Red Cell Distribution Width 15.6 % (11.0-16.0); White Blood Count 8.1 X10*3/uL (4.8-10.8)
[2024-05-31 06:25] LABS: Glucose, Whole Blood 144 mg/dL (60-115)
[2024-05-31] MEDS: Furosemide 100 MG/10 ML VIAL 80 MG IVPUSH (07:41)
[2024-05-31] MEDS: Heparin Sodium,Porcine 5,000 UNIT/ML VIAL 5000 UNIT SUBCUT ×2 (07:42→16:45)
[2024-05-31] MEDS: 0.9 % Sodium Chloride Flush 3 ML SYRINGE IVFLUSH ×2 (07:42→16:46)
[2024-05-31] MEDS: Valproic Acid Liquid 250 MG/5 ML SOLUTION 500 MG PO ×3 (07:42→21:53)
--- NOTE | 2024-05-31 08:03 | P.CDIM_ITS ---
PROVIDER RESPONSE TEXT: To clarify, the appropriate diagnosis supported by the clinical indicators: Acute CHF ( please specify if Systolic, Diastolic, both) QUERY TEXT: PHYSICIAN'S DOCUMENTATION REQUEST Date of Query: 05/31/2024 07:41 AM EDT Patient Name: Romaine Longoria Admit Date: 04/29/2024 Dear Pal Lord MD, A review of the medical record indicates additional documentation may be needed. Please review below and update the documentation accordingly. Clinical Indicators: Critical Care Progress note 05/23/24: On Lasix drip at 5 mL/hour due to volume overload. I's and O's n et negative [address] chest on 05/21/2024 with small bilateral pleural effusions and bibasilar atelectasis. 05/30/24: bibasilar crackles Now on Lasix 80 mg IVP daily no ECHO on record Based on the above, could you clarify the appropriate diagnosis, if significant, that supports the ab ove abnormalities and additional evaluation, monitoring, and/or treatment rendered: Acute CHF ( please specify if Systolic, Diastolic, both) Atelectasis Pleural effusions (please specify cause) Other (explain) Clinically unable to determine (explain) Thank you, Karina Choi RN Use of terms such as suspected, likely, concern for, or probable (associated with a specific diagnosi s that is being evaluated, monitored, or treated as if it exists) are acceptable and can be coded in the inpatient se tting, when documented at the time of discharge. Please use your independent medical judgment in providing your response. THIS QUERY IS PART OF THE PERMANENT MEDICAL RECORD
--- NOTE | 2024-05-31 08:06 | P.CDIM_ITS ---
PROVIDER RESPONSE TEXT: To clarify, the appropriate diagnosis supported by the clinical indicators: Hypokalemia QUERY TEXT: PHYSICIAN'S DOCUMENTATION REQUEST Date of Query: 05/31/2024 07:51 AM EDT Patient Name: Romaine Longoria Admit Date: 04/29/2024 Dear Pal Lord MD, A review of the medical record indicates additional documentation may be needed. Please review below and update the documentation accordingly. Clinical Indicators: Potassium on 05/29/24: 2.9, 3.1 Potassium on 05/30/24: 3.2 The following diagnoses or signs and symptoms were noted in the patient record: Potassium Chloride/H2O 10 mEq in 100 mls IV @ 100mls/hr Q1H ordered on 05/30/24 (4 bags) Based on the above, could you clarify the appropriate diagnosis, if significant, that supports the ab ove abnormalities and additional evaluation, monitoring, and/or treatment rendered: Hypokalemia Labs indicate a diagnosis of (please specify) Other (explain) Clinically unable to determine (explain) Thank you, Karina Choi RN Use of terms such as suspected, likely, concern for, or probable (associated with a specific diagnosi s that is being evaluated, monitored, or treated as if it exists) are acceptable and can be coded in the inpatient se tting, when documented at the time of discharge. Please use your independent medical judgment in providing your response. THIS QUERY IS PART OF THE PERMANENT MEDICAL RECORD
[2024-05-31 08:09] LABS: Venous Blood Gas Refer to POC result
[2024-05-31 08:42] LABS: Vancomycin Random 19.8 mcg/mL (15-20)
[2024-05-31 09:22] LABS: Alanine Aminotransferase 23 U/L (0-40); Albumin Level 3.6 g/dL (3.5-5.0); Alkaline Phosphatase 72 U/L (39-117); Anion Gap 17 (12-20); Aspartate Amino Transferase 31 U/L (5-37); Bilirubin Total 0.3 mg/dL (0.0-1.0); Blood Urea Nitrogen 19 mg/dL (9-16); Carbon Dioxide 29 mmol/L (22-29); Chloride 101 mmol/L (96-108); Creatinine Clr Calc Pharmacy 44.1; Estimated Glomerular Filt Rate 37; Glucose Random 137 mg/dL (60-115); Magnesium 1.8 mg/dL (1.6-2.6); Phosphorus 4.4 mg/dL (2.7-4.5); Sodium 144 mmol/L (135-145); Total Protein 6.7 g/dL (6.5-8.0)
--- NOTE | 2024-05-31 09:51 | P.PNCC_ITS ---
Subjective Subjective Date of Service: 05/31/24 Interval History: 58-year-old gentleman with underlying alcohol dependence, obesity, diabetes mellitus being admitted for hyperglycemia and alcohol withdrawal on background of acute metabolic acidosis with acute renal failure and hyponatremia likely secondary to beer potomania. Required intubation on 04/30/2024 secondary to high sedative drip requirements for underlying delirium tremens. Extubated on 05/05, however remains with significant toxic encephalopathy requiring Precedex drip. Reintubated on 05/13/2024 secondary to high sedative requirements. CT chest on 05/21/2024 with small bilateral pleural effusions, but bibasilar atelectasis. Extubated 05/26/2024. Titrated off sedative drips. No events overnight. Overall with significant myopathy, sliding down in bed with resultant intermittent aspirations. Critical Care Time (minutes): 0 Physical Exam 2 Vital Signs: Vital Signs: Last Vital Signs Temp 98.2 F 05/31/24 07:58 Pulse 128 H 05/31/24 09:00 Resp 24 H 05/31/24 09:00 BP 88/59 L 05/31/24 09:00 Pulse Ox 93 05/31/24 09:00 O2 Del Method High Flow Nasal C annula 05/31/24 09:00 O2 Flow Rate 50 05/31/24 09:00 FiO2 50 05/31/24 09:00 BMI result Body Mass Index 27.2 Const: General: no acute distress, alert and awake Eyes: Sclerae: sclerae normal EOM: EOMs intact bilaterally Neck: Neck: Yes no lymphadenopathy, Yes trachea midline and Yes supple Resp: Effort & Inspection: normal respiratory effort and no respiratory distress Auscultation: crackles (Right basilar) Cardio: Rate: tachycardic Rhythm: regular rhythm Heart sounds: no gallops, no murmurs and no rubs GI: Palpation (GI): Soft to palpation and Other GI palpation findings present ( Nontender) Auscultation: normal bowel sounds Extrem: General: Yes no pedal edema, No clubbing and No cyanosis Objective Data Labs 05/31/24 05:17 05/31/24 05:17 Labs: Laboratory Results - last 24 hr 05/30/24 05/30/24 05/30/24 12:09 17:29 23:25 WBC RBC Hgb Hct MCV MCH MCHC RDW Plt Count MPV Immature Gran % (Auto) Neut % (Auto) Lymph % (Auto) [place] % (Auto) Eos % (Auto) Baso % (Auto) Lymph # (Auto) [place] # (Auto) Eos # (Auto) Baso # (Auto) Abs Immat Gran (auto) Absolute Neuts (auto) Absolute Nucleated RBC Nucleated RBC % (auto) VBG pH VBG pCO2 VBG pO2 VBG HCO3 VBG O2 Saturation VBG Base Excess Sodium Potassium Chloride Carbon Dioxide Anion Gap BUN Creatinine Estim Creat Clear Calc Estimated GFR POC Glucose 247 H 131 H 147 H Random Glucose Calcium Phosphorus Magnesium Total Bilirubin AST ALT Alkaline Phosphatase Total Protein Albumin Random Vancomycin 05/31/24 05/31/24 05/31/24 05:17 06:21 08:10 WBC 8.1 RBC 2.99 L Hgb 9.6 L Hct 30.5 L MCV 102.0 H MCH 32.1 MCHC 31.5 RDW 15.6 Plt Count 332 MPV 9.3 L Immature Gran % (Auto) 1.7 H Neut % (Auto) 58.9 Lymph % (Auto) 16.0 L [place] % (Auto) 12.7 H Eos % (Auto) 9.5 H Baso % (Auto) 1.2 Lymph # (Auto) 1.3 [place] # (Auto) 1.0 Eos # (Auto) 0.8 H Baso # (Auto) 0.1 Abs Immat Gran (auto) 0.14 H Absolute Neuts (auto) 4.8 Absolute Nucleated RBC 0.000 Nucleated RBC % (auto) 0.0 VBG pH 7.53 H VBG pCO2 41 VBG pO2 61 VBG HCO3 35 H VBG O2 Saturation 89.0 VBG Base Excess 11.5 Sodium 144 Potassium 3.0 L Chloride 101 Carbon Dioxide 29 Anion Gap 17 BUN 19 H Creatinine 1.86 H Estim Creat Clear Calc 44.1 Estimated GFR 37 POC Glucose 144 H Random Glucose 137 H Calcium 9.0 D Phosphorus 4.4 Magnesium 1.8 Total Bilirubin 0.3 AST 31 ALT 23 Alkaline Phosphatase 72 Total Protein 6.7 Albumin 3.6 Random Vancomycin 19.8 Microbiology Microbiology Results: Microbiology 05/23/24 10:49 Tracheal Aspirate Gram Stain - Final 05/23/24 10:49 Tracheal Aspirate Sputum Culture - Final Methicillin Res Staph Aureus 05/05/24 07:50 Tracheal Aspirate Gram Stain - Final 05/05/24 07:50 Tracheal Aspirate Sputum Culture - Final Methicillin Res Staph Aureus 04/29/24 10:33 Blood - Venous Blood Culture - Final No growth after 5 days. 04/29/24 10:33 Blood - Venous Blood Culture - Final No growth after 5 days. Progress Note: A&P Assessment and plan (1) Alcohol abuse with withdrawal: Status: Acute (2) Encephalopathy: Status: Acute (3) Critical illness myopathy: Status: Acute (4) Pulmonary aspiration: Status: Acute (5) Acute respiratory failure with hypoxia: Status: Acute Plan Assessment: 58-year-old gentleman being admitted with alcohol withdrawal further complicated by acute hyponatremia likely secondary to beer potomania, acute renal failure with metabolic acidosis and hypoglycemia Plan: Neuro: Alcohol withdrawal and resultant toxic encephalopathy, now with significant improvement. Titrated off sedative drips. Continue on Seroquel/valproate. Cardiac: No acute issues. Pulmonary: Initially required intubation for high-dose sedative drips and also hypoxia secondary to pulmonary aspiration. Extubated 05/05/2024. Required re- intubation on 05/13/2024 secondary to high sedative treatment requirements, extubated 05/26/2024. Underlying MRSA aspiration pneumonia. CT chest on 05/21/2024 with small bilateral pleural effusions and bibasilar atelectasis. Continue to titrate off supplemental oxygen as tolerated. Renal: No acute issues. Endo: No acute issues. Underlying diabetes mellitus, continue sliding scale insulin. Underlying hypothyroidism, continue Synthroid. GI: No acute issues. ID: Aspiration MRSA pneumonia, continue vancomycin. Heme/Onc: No acute issues. Psych: No acute issues. Miscellaneous: Significant critical illness myopathy with patient's needing down bed and intermittently aspirating. Continue physical therapy. Prophylaxis: Heparin Diet: PPI Quality Stroke Does the patient have a stroke diagnosis?: No VTE Prior VTE?: No VTE Risk Level:: Medical - moderate - high VTE Device Contraindication: Treatment Not Indicated VTE Drug Contraindication: N/A - Med Ordered
--- NOTE | 2024-05-31 10:13 | MHC.SL.SWA ---
Risk of Aspiration Due to: History of Pneumonia Hx of Recent Extubation Neck surgery Dysphasia Diet Status: NO CHANGE Liquid Consistency and Strategies for Safe Swallow: Liquid Intake Recommendation: Thin Liquid Intake Strategies: Small Sips Solid Food Consistency: Dietary Recommendations: Pureed (NDD1) Additional Modifications to Solid Foods: Patient presents with overt s/s of aspiration, s/p extubation 24 hours prior. Recommend continue NPO status, provide oral care for hygiene and comfort, elevate HoB at least 30 degrees. Findings were communicated with RN, RD, and MD via [facility] Message. Advised AUTO BODY TECHNICIAN is available for call-in over the weekend if needed. Oral Medication Intake: Crushed with Puree Please contact the pharmacy regarding appropriate crushable or liquid drug formulations that are available whenever modified delivery is recommended. Compensatory Strategies and Precautions to be Taken for Safe Swallow: Sitting Upright (90 deg) Small Bites and Sips Rate of Ingestion Change Supervision While Eating and Drinking for Safe Swallow: Total Supervision (1:1) Foods to Avoid: Swallowing Recommended Treatments: Compens. Strategy Educat. Recommendation for Speech: Inpatient Speech Therapy Modified Barium Swallow Study - Inpatient Modified Barium Swallow Study - Outpatient Comment: Recommend pt continue with PUREE solids (NDD1), THIN liquids, and MEDS CRUSHED in puree. Pt benefits from intermittent reminders to eat/drink slowly. Provide oral care before/after PO. Elevate HoB close to 90 degrees when eating. Pt at increased risk of aspiration d/t recent repeat and prolonged intubation (05/01-05/05 and 05/13-05/26). Due to recent intubations, concerns for repeated aspiration PNA, and history of neck surgery; recommend MBSS once pt's respiratory status is more stable. Frequency/Duration: daily M-F and weekends if needed Stereo Equipment Installer Clinican/Clinical Fellow: No Supervisory Statement: I have reviewed and agree with the student/clinical fellow's documentation: N/A Speech Language Pathologist: Sofia Martínez M.A., CCC-AUTO BODY TECHNICIAN
[2024-05-31] MEDS: Potassium Chloride/H20 10 MEQ/100 ML PIGGYBACK 100 MEQ IV ×2 (10:24→11:33)
[2024-05-31] MEDS: Potassium Chloride Packet 20 MEQ PACKET 60 MEQ PO (10:24)
--- NOTE | 2024-05-31 10:26 | MHC.CLN ---
F/U DIET ADVANCED TO PUREED PER VEHICLE COST ENGINEER PPN WAS CANCELLED BEFORE PT RECEIVED R/T ADVANCED DIET DISCUSSED AT ROUNDS WITH MD PO INTAKE 25% X1 MEAL RECOMMEND ADDING ENSURE BID TO INCREASE KCALS SUPP TO PROVIDE 700KCALS, 40G PROTEIN MONITOR PO INTAKE AND ENCOURAGE SUPPLEMENT
[2024-05-31] MEDS: vancomycin HCL 750 MG in 0.9 % Sodium Chloride 250 ML 265 MG IV (11:31)
[2024-05-31 12:13] LABS: Glucose, Whole Blood 288 mg/dL (60-115)
[2024-05-31] MEDS: Insulin Lispro 100 UNIT/ML 3 ML VIAL SUBCUT ×2 (12:15→17:39)
--- NOTE | 2024-05-31 14:56 | MHC.CM.PN ---
Addendum entered by Iraida Echavarria 05/31/24 15:49: Received call from pt's son Aden Longoria [phone] requesting an update on d/c planning. He states he is unable to assist w/pt's discharge plans (he is a PhD student in [place]) but is able to assist family with collective decision making. He notes a challenging relationship with pt but would like to be as present as he is able. Discussed pt needing a guardian should he not be able to name a proxy: Aden opting not to serve in that role should pt require guardian. Aden is accepting of updates and will be able to visit pt once weekly. Information updated in EMR contacts. Addendum entered by Iradia Echavarria 05/31/24 15:01: CM to assist with HCP completion once pt is more oriented. Original Note: Pt more alert and verbal but only oriented to self. No longer on sedation meds: has begun working with PT : referred to [facility] centers - no acceptance offers at this time. Will continue to follow.
[2024-05-31 17:38] LABS: Glucose, Whole Blood 195 mg/dL (60-115)
[2024-05-31 18:47] LABS: Anion Gap 18 (12-20); Blood Urea Nitrogen 20 mg/dL (9-16); Calcium 9.1 mg/dL (8.4-10.2); Carbon Dioxide 27 mmol/L (22-29); Chloride 101 mmol/L (96-108); Creatinine Clr Calc Pharmacy 37.8; Estimated Glomerular Filt Rate 31; Glucose Random 215 mg/dL (60-115); Potassium 3.6 mmol/L (3.3-5.1); Sodium 142 mmol/L (135-145)
--- NOTE | 2024-05-31 19:12 | PC.NURSE ---
Assumed care of patient 0700 Patient A+Ox1, calm, cooperative. Frequent reorientation given to place, time, situation with rounding. Provided bed bath 08:30. Pt up to recliner chair 09:00am. Pt remains sitting up at shift change 19:00. Pt repositioned Q2H with assistance. Jasmyne steady with 2 assist used for transfer to commode. 1 bowel movement this shift. Sister Hetal at bedside provided an update approximately 14:00. Pt appetite improving, eating well 75-100% with meals set up. Puree solids, thin liquids. Denies nausea.
[2024-05-31] MEDS: QUEtiapine Fumarate 100 MG TABLET PO (21:53)
[2024-06-01] VITALS (16 sets, daily range): BP systolic 95–165; BP diastolic 62–107; PULSE 88–113; RESP 13–25; TEMP 36.4–36.9; O2SAT 90–94; BMI 25.0
[2024-06-01 00:28] LABS: Glucose, Whole Blood 206 mg/dL (60-115)
[2024-06-01] MEDS: 0.9 % Sodium Chloride Flush 3 ML SYRINGE IVFLUSH ×4 (01:00→20:29)
[2024-06-01] MEDS: Heparin Sodium,Porcine 5,000 UNIT/ML VIAL 5000 UNIT SUBCUT ×3 (01:08→16:29)
[2024-06-01] MEDS: Piperacillin Sodium/Tazobactam 4.5 GM in 0.9 % Sodium Chloride 100 ML IV (03:32)
[2024-06-01] MEDS: Levothyroxine Sodium 100 MCG/5 ML VIAL IVPUSH (05:24)
[2024-06-01 05:53] LABS: VBG Base Excess 11.3 mmol/L; VBG HCO3 35 mmol/L (22-26); VBG pCO2 42 mmHg; VBG pH 7.52 (7.32-7.43); VBG pO2 58 mmHg
[2024-06-01 06:08] LABS: MANUAL DIFF FLAG NO
[2024-06-01 06:16] LABS: Basophils Absolute Auto 0.1 X10*3/uL (0.0-0.2); Eosinophils Percent Auto 10.2 % (0-4); Hematocrit 30.4 % (42.0-52.0); Hemoglobin 9.7 g/dl (14.0-18.0); Imm Gran Abs Auto 0.21 X10*3/uL (0.00-0.03); Imm Gran Pct Auto 2.2 % (0.0-0.4); Lymphocytes Absolute Auto 1.5 X10*3/uL (1.2-4.9); Lymphocytes Percent Auto 16.1 % (20-40); Mean Corpuscular HGB Conc 31.9 g/dl (31.0-36.0); Mean Corpuscular Hemoglobin 32.4 pg (27.0-33.0); Mean Corpuscular Volume 101.7 fL (80.0-98.0); Mean Platelet Volume 9.2 fL (9.4-12.4); Monocytes Absolute Auto 1.1 X10*3/uL (0.1-1.2); Monocytes Percent Auto 11.4 % (2-11); Neutrophils Absolute Auto 5.5 x10*3/uL (2.0-8.3); Neutrophils Percent Auto 59.1 % (45-73); Platelet Count 349 X10*3/uL (160-400); Red Blood Count 2.99 X10*6/uL (4.60-5.80); Red Cell Distribution Width 15.8 % (11.0-16.0); White Blood Count 9.4 X10*3/uL (4.8-10.8)
[2024-06-01 06:25] LABS: Albumin Level 3.6 g/dL (3.5-5.0); Anion Gap 17 (12-20); Blood Urea Nitrogen 22 mg/dL (9-16); Calcium 9.3 mg/dL (8.4-10.2); Carbon Dioxide 27 mmol/L (22-29); Chloride 103 mmol/L (96-108); Creatinine Clr Calc Pharmacy 35.5; Estimated Glomerular Filt Rate 29; Glucose Random 175 mg/dL (60-115); Magnesium 1.9 mg/dL (1.6-2.6); Phosphorus 4.2 mg/dL (2.7-4.5); Potassium 3.4 mmol/L (3.3-5.1); Sodium 144 mmol/L (135-145)
[2024-06-01 06:39] LABS: Venous Blood Gas Refer to POC result
[2024-06-01 07:30] LABS: Glucose, Whole Blood 158 mg/dL (60-115)
[2024-06-01] MEDS: Insulin Lispro 100 UNIT/ML 3 ML VIAL SUBCUT ×3 (07:54→16:29)
[2024-06-01] MEDS: Valproic Acid Liquid 250 MG/5 ML SOLUTION 500 MG PO ×3 (07:54→20:28)
[2024-06-01] MEDS: Furosemide 100 MG/10 ML VIAL 80 MG IVPUSH (07:54)
[2024-06-01] MEDS: Potassium Chloride Packet 20 MEQ PACKET 40 MEQ PO (08:35)
[2024-06-01] MEDS: amLODIPine Besylate 10 MG TABLET PO (09:52)
[2024-06-01] MEDS: Metoprolol Succinate ER 100 MG TAB.ER.24H PO (09:52)
--- NOTE | 2024-06-01 10:55 | P.PNCC_ITS ---
Subjective Subjective Date of Service: 06/01/24 Interval History: 58-year-old gentleman with underlying alcohol dependence, obesity, diabetes mellitus being admitted for hyperglycemia and alcohol withdrawal on background of acute metabolic acidosis with acute renal failure and hyponatremia likely secondary to beer potomania. Required intubation on 04/30/2024 secondary to high sedative drip requirements for underlying delirium tremens. Extubated on 05/05, however remains with significant toxic encephalopathy requiring Precedex drip. Reintubated on 05/13/2024 secondary to high sedative requirements. CT chest on 05/21/2024 with small bilateral pleural effusions, but bibasilar atelectasis. Extubated 05/26/2024. Titrated off sedative drips. No events overnight. Overall with significant improvement, though still with considerable critical illness myopathy. Critical Care Time (minutes): 0 Physical Exam 2 Vital Signs: Vital Signs: Last Vital Signs Temp 98.4 F 06/01/24 08:00 Pulse 106 H 06/01/24 10:00 Resp 25 H 06/01/24 10:00 BP 161/89 H 06/01/24 10:00 Pulse Ox 91 L 06/01/24 10:00 O2 Del Method Nasal Cannula 06/01/24 10:00 O2 Flow Rate 2 06/01/24 10:00 FiO2 40 06/01/24 04:00 BMI result Body Mass Index 25.0 Const: General: no acute distress, alert and awake Eyes: Sclerae: sclerae normal EOM: EOMs intact bilaterally Neck: Neck: Yes no lymphadenopathy, Yes trachea midline and Yes supple Resp: Effort & Inspection: normal respiratory effort and no respiratory distress Auscultation: clear to auscultation bilaterally Cardio: Rate: tachycardic Rhythm: regular rhythm Heart sounds: no gallops, no murmurs and no rubs GI: Palpation (GI): Soft to palpation and Other GI palpation findings present ( Nontender) Auscultation: normal bowel sounds Extrem: General: No clubbing, No cyanosis and Yes edema (Trace bilateral) Objective Data Labs 06/01/24 05:43 06/01/24 05:43 Labs: Laboratory Results - last 24 hr 05/31/24 05/31/24 05/31/24 12:10 17:35 18:00 WBC RBC Hgb Hct MCV MCH MCHC RDW Plt Count MPV Immature Gran % (Auto) Neut % (Auto) Lymph % (Auto) [place] % (Auto) Eos % (Auto) Baso % (Auto) Lymph # (Auto) [place] # (Auto) Eos # (Auto) Baso # (Auto) Abs Immat Gran (auto) Absolute Neuts (auto) Absolute Nucleated RBC Nucleated RBC % (auto) VBG pH VBG pCO2 VBG pO2 VBG HCO3 VBG O2 Saturation VBG Base Excess Sodium 142 Potassium 3.6 Chloride 101 Carbon Dioxide 27 Anion Gap 18 BUN 20 H Creatinine 2.17 H Estim Creat Clear Calc 37.8 Estimated GFR 31 POC Glucose 288 H 195 H Random Glucose 215 H Calcium 9.1 Phosphorus Magnesium Albumin 06/01/24 06/01/24 06/01/24 00:17 05:43 05:50 WBC 9.4 RBC 2.99 L Hgb 9.7 L Hct 30.4 L MCV 101.7 H MCH 32.4 MCHC 31.9 RDW 15.8 Plt Count 349 MPV 9.2 L Immature Gran % (Auto) 2.2 H Neut % (Auto) 59.1 Lymph % (Auto) 16.1 L [place] % (Auto) 11.4 H Eos % (Auto) 10.2 H Baso % (Auto) 1.0 Lymph # (Auto) 1.5 [place] # (Auto) 1.1 Eos # (Auto) 1.0 H Baso # (Auto) 0.1 Abs Immat Gran (auto) 0.21 H Absolute Neuts (auto) 5.5 Absolute Nucleated RBC 0.000 Nucleated RBC % (auto) 0.0 VBG pH 7.52 H VBG pCO2 42 VBG pO2 58 VBG HCO3 35 H VBG O2 Saturation 86.0 VBG Base Excess 11.3 Sodium 144 Potassium 3.4 Chloride 103 Carbon Dioxide 27 Anion Gap 17 BUN 22 H Creatinine 2.31 H Estim Creat Clear Calc 35.5 Estimated GFR 29 POC Glucose 206 H Random Glucose 175 H Calcium 9.3 Phosphorus 4.2 Magnesium 1.9 Albumin 3.6 06/01/24 07:25 WBC RBC Hgb Hct MCV MCH MCHC RDW Plt Count MPV Immature Gran % (Auto) Neut % (Auto) Lymph % (Auto) [place] % (Auto) Eos % (Auto) Baso % (Auto) Lymph # (Auto) [place] # (Auto) Eos # (Auto) Baso # (Auto) Abs Immat Gran (auto) Absolute Neuts (auto) Absolute Nucleated RBC Nucleated RBC % (auto) VBG pH VBG pCO2 VBG pO2 VBG HCO3 VBG O2 Saturation VBG Base Excess Sodium Potassium Chloride Carbon Dioxide Anion Gap BUN Creatinine Estim Creat Clear Calc Estimated GFR POC Glucose 158 H Random Glucose Calcium Phosphorus Magnesium Albumin Microbiology Microbiology Results: Microbiology 05/23/24 10:49 Tracheal Aspirate Gram Stain - Final 05/23/24 10:49 Tracheal Aspirate Sputum Culture - Final Methicillin Res Staph Aureus 05/05/24 07:50 Tracheal Aspirate Gram Stain - Final 05/05/24 07:50 Tracheal Aspirate Sputum Culture - Final Methicillin Res Staph Aureus 04/29/24 10:33 Blood - Venous Blood Culture - Final No growth after 5 days. 04/29/24 10:33 Blood - Venous Blood Culture - Final No growth after 5 days. Progress Note: A&P Assessment and plan (1) Alcohol abuse with withdrawal: Status: Acute (2) DARRELL (acute kidney injury): Status: Acute (3) Critical illness myopathy: Status: Acute (4) Encephalopathy: Status: Acute (5) Pulmonary aspiration: Status: Acute (6) Acute respiratory failure with hypoxia: Status: Acute Plan Assessment: 58-year-old gentleman being admitted with alcohol withdrawal further complicated by acute hyponatremia likely secondary to beer potomania, acute renal failure with metabolic acidosis and hypoglycemia Plan: Neuro: Alcohol withdrawal and resultant toxic encephalopathy, now with significant improvement. Titrated off sedative drips. Continue on Seroquel/valproate. Cardiac: No acute issues. Pulmonary: Initially required intubation for high-dose sedative drips and also hypoxia secondary to pulmonary aspiration. Extubated 05/05/2024. Required re- intubation on 05/13/2024 secondary to high sedative treatment requirements, extubated 05/26/2024. Underlying MRSA aspiration pneumonia. CT chest on 05/21/2024 with small bilateral pleural effusions and bibasilar atelectasis. Continue to titrate off supplemental oxygen as tolerated. Renal: DARRELL, likely secondary to over-diuresis. Diuretic regimen held. Endo: No acute issues. Underlying diabetes mellitus, continue sliding scale insulin. Underlying hypothyroidism, continue Synthroid. GI: No acute issues. ID: Aspiration MRSA pneumonia, completed vancomycin course. Will monitor off antibiotics. Heme/Onc: No acute issues. Psych: No acute issues. Miscellaneous: Significant critical illness myopathy with patient's needing down bed and intermittently aspirating, improved. Continue physical therapy. Prophylaxis: Heparin Diet: Pureed Quality Stroke Does the patient have a stroke diagnosis?: No VTE Prior VTE?: No VTE Risk Level:: Medical - moderate - high VTE Device Contraindication: Treatment Not Indicated VTE Drug Contraindication: N/A - Med Ordered
[2024-06-01 11:43] LABS: Glucose, Whole Blood 166 mg/dL (60-115)
--- NOTE | 2024-06-01 13:21 | PC.NURSE ---
Care assumed @ 0700? Neuro: Alert, Oriented x2 follows simple commands, BNAKS spontaneously, intermittent restlessness requiring redirection. Resp: 2LNC?oxymizer,? clear lung sounds?? Cardiac: SR-ST, Laxis IVP per APR.? GI: LBM? 06/01 , +bowel sounds, 1:1 feed, on sliding scale insulin per APR. . : Male purewick in place.? Skin: ?Impaired skin integrity - see skin assessment (repositioning maintained)? Infectious: IV antibiotics? Lines: peripheral IVs Stand & pivot with a walker to recliner/commode Plan: Transfer to [facility]. No longer requiring ICU-level
--- NOTE | 2024-06-01 15:29 | MHC.SLORD ---
Speech Language Pathology Order Status: Pt seen in ICU, transfer to floor in process. Pt reported he cannot eat a lot of food, but in agreement that pureed is most safe consistency prior to visualization. MBSS pending at this time, further diet recc to be determined.
[2024-06-01 16:33] LABS: Glucose, Whole Blood 172 mg/dL (60-115)
[2024-06-01 20:27] LABS: Glucose, Whole Blood 141 mg/dL (60-115)
[2024-06-01] MEDS: QUEtiapine Fumarate 100 MG TABLET PO (20:29)
--- NOTE | 2024-06-01 22:47 | P.EN_ITS ---
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 58-year-old gentleman with underlying alcohol dependence, obesity, diabetes mellitus being admitted for hyperglycemia and alcohol withdrawal on background of acute metabolic acidosis with acute renal failure and hyponatremia likely secondary to beer potomania. Required intubation on 04/30/2024 secondary to high sedative drip requirements for underlying delirium tremens. Extubated on 05/05, however remains with significant toxic encephalopathy requiring Precedex drip. Reintubated on 05/13/2024 secondary to high sedative requirements. CT chest on 05/21/2024 with small bilateral pleural effusions, but bibasilar atelectasis. Extubated 05/26/2024. Titrated off sedative drips. s/p treatment for pna, now with DARRELL... icu myopathy and deconditioning. LR for DARRELL, nephro consult. PT/OT and ashwin need rehab Time Spent With Patient Time: Total time managing care of this patient today ____ minutes.
[2024-06-01] MEDS: Lactated Ringers 1,000 ML 100 ML IVCONT (23:45)
[2024-06-02] VITALS (11 sets, daily range): BP systolic 150–165; BP diastolic 60–98; PULSE 80–100; RESP 15–22; TEMP 36.1–37.9; O2SAT 92–96
[2024-06-02] MEDS: Levothyroxine Sodium 200 MCG TABLET PO (06:18)
[2024-06-02 06:35] LABS: MANUAL DIFF FLAG NO
[2024-06-02 06:37] LABS: Venous Blood Gas Refer to POC result
[2024-06-02 06:40] LABS: VBG Base Excess 9.2 mmol/L; VBG HCO3 34 mmol/L (22-26); VBG pCO2 46 mmHg; VBG pH 7.46 (7.32-7.43); VBG pO2 66 mmHg
[2024-06-02 06:43] LABS: Basophils Absolute Auto 0.1 X10*3/uL (0.0-0.2); Basophils Percent Auto 0.9 % (0-2); Hemoglobin 9.9 g/dl (14.0-18.0); Imm Gran Abs Auto 0.19 X10*3/uL (0.00-0.03); Imm Gran Pct Auto 1.9 % (0.0-0.4); Lymphocytes Absolute Auto 1.6 X10*3/uL (1.2-4.9); Lymphocytes Percent Auto 16.4 % (20-40); Mean Corpuscular Hemoglobin 33.1 pg (27.0-33.0); Mean Corpuscular Volume 100.3 fL (80.0-98.0); Mean Platelet Volume 9.2 fL (9.4-12.4); Monocytes Percent Auto 9.8 % (2-11); Platelet Count 355 X10*3/uL (160-400); Red Blood Count 2.99 X10*6/uL (4.60-5.80); Red Cell Distribution Width 15.3 % (11.0-16.0); White Blood Count 9.9 X10*3/uL (4.8-10.8)
[2024-06-02 06:51] LABS: Albumin Level 3.8 g/dL (3.5-5.0); Anion Gap 16 (12-20); Blood Urea Nitrogen 21 mg/dL (9-16); Calcium 9.6 mg/dL (8.4-10.2); Carbon Dioxide 27 mmol/L (22-29); Chloride 102 mmol/L (96-108); Creatinine Clr Calc Pharmacy 47.4; Estimated Glomerular Filt Rate 41; Glucose Random 130 mg/dL (60-115); Magnesium 1.8 mg/dL (1.6-2.6); Phosphorus 3.9 mg/dL (2.7-4.5); Potassium 3.6 mmol/L (3.3-5.1); Sodium 141 mmol/L (135-145)
[2024-06-02 07:03] LABS: Glucose, Whole Blood 126 mg/dL (60-115)
[2024-06-02] MEDS: Valproic Acid Liquid 250 MG/5 ML SOLUTION 500 MG PO ×3 (08:53→19:48)
[2024-06-02] MEDS: Heparin Sodium,Porcine 5,000 UNIT/ML VIAL 5000 UNIT SUBCUT ×3 (08:54→23:28)
[2024-06-02] MEDS: amLODIPine Besylate 10 MG TABLET PO (08:54)
[2024-06-02] MEDS: Metoprolol Succinate ER 100 MG TAB.ER.24H PO (08:54)
[2024-06-02] MEDS: 0.9 % Sodium Chloride Flush 3 ML SYRINGE IVFLUSH ×2 (08:55→16:37)
[2024-06-02] MEDS: Lactated Ringers 1,000 ML 100 ML IVCONT (08:55)
--- NOTE | 2024-06-02 09:33 | PM.CNNEP ---
History of Present Illness Reason for Consult Consult date: 06/02/24 Reason for consult: Acute kidney injury Chief Complaint Chief complaint: altered mental status sepsis History of Present Illness Narrative: Romaine is a 58-year-old man with a history of alcohol abuse and diabetes mellitus. He was admitted on April 29 with alcohol withdrawal. At the time admission he had hyponatremia with a serum sodium of 122 and he had acute kidney injury with a serum creatinine of 3.09. During the course of this hospitalization serum sodium has gradually corrected and normalized in a week's time. Subsequently he developed hypernatremia and later this resolved as well. Acute kidney injury resolved over a period of 7-10 days. Serum creatinine returned to a baseline of 0.9 mg/dL. However he was sustained a 2nd episodes of acute kidney injury and as of today serum creatinine was 1.73. This consultation has been requested for the management of acute kidney injury and electrolyte imbalance. Review of Systems Constitutional: Denies fever(s) and Denies weight loss Cardiovascular: Denies chest pain Respiratory: Denies cough and Denies hemoptysis Gastrointestinal: Denies abdominal pain, Denies diarrhea and Denies nausea Musculoskeletal: Denies back pain Denies focal weakness [facility] Past Medical History Medical History (Updated 05/31/24 @ 09:52 by Pal Lord MD) Throat cancer Surgical History Surgical History H/O excision of mass Social History Social History Household Members: None Housing: House Do you presently have visiting nurse or other home services: Yes Alcohol intake: current Alcohol intake frequency: 3 or more drinks per day Alcohol type: beer Comment: 1:1 sitter Patient Tobacco Use Status: Current everyday Tobacco user Tobacco use type: Cigarette e-Cigarette/Vaping Use: Never Used Second Hand Smoke Exposure: No service: No Meds Allergies Allergy/AdvReac Type Severity Reaction Status Date / Time No Known Allergies Allergy Verified 04/29/24 10:55 Active Medications: Current Medications Albuterol Sulfate (Albuterol Sulfate (0.083%) 2.5 Mg/3 Ml Vial.Neb) 2.5 mg INHALE Q3H PRN PRN Reason: Wheezing Last Admin: 05/28/24 05:01 Dose: 2.5 mg Amlodipine Besylate (Amlodipine Besylate 10 Mg Tablet) 10 mg PO DAILY [facility]; Protocol Last Admin: 06/02/24 08:54 Dose: 10 mg Dextrose (Dextrose 50 % 25 Gm/50 Ml Syringe) 25 gm IVPUSH Q15M PRN PRN Reason: per Hypoglycemia Standing Ord. Last Admin: 04/30/24 01:26 Dose: 25 gm Heparin Sodium (Porcine) (Heparin Sodium,Porcine 5,000 Unit/Ml Vial) 5,000 unit SUBCUT Q8H [facility] Last Admin: 06/02/24 08:54 Dose: 5,000 unit Lactated Ringer's (Lr) 1,000 mls @ 100 mls/hr IVCONT .Q10H [facility] Last Admin: 06/02/24 08:55 Dose: 100 mls/hr Insulin Human Lispro (Insulin Lispro 100 Unit/Ml 3 Ml Vial) 0 unit SUBCUT QIDACHS [facility]; Protocol Last Admin: 06/02/24 07:35 Dose: Not Given Labetalol HCl (Labetalol Hcl 100 Mg/20 Ml Vial) 20 mg IVPUSH Q10M PRN PRN Reason: SBP > 160 Last Admin: 05/30/24 04:15 Dose: 20 mg Levothyroxine Sodium (Levothyroxine Sodium 200 Mcg Tablet) 200 mcg PO DAILY@0600 [facility] Last Admin: 06/02/24 06:18 Dose: 200 mcg Metoprolol Succinate (Metoprolol Succinate Er 100 Mg Tab.Er.24h) 100 mg PO DAILY [facility]; Protocol Last Admin: 06/02/24 08:54 Dose: 100 mg Ondansetron HCl (Ondansetron Hcl 4 Mg/2 Ml Vial) 4 mg IVPUSH Q4H PRN PRN Reason: Nausea and Vomiting Last Admin: 05/30/24 15:34 Dose: 4 mg Quetiapine Fumarate (Quetiapine Fumarate 100 Mg Tablet) 100 mg PO BEDTIME [facility] Last Admin: 06/01/24 20:29 Dose: 100 mg Sodium Chloride (0.9 % Sodium Chloride Flush 3 Ml Syringe) 3 ml IVFLUSH QSHIFT [facility] Last Admin: 06/02/24 08:55 Dose: 3 ml Valproic Acid (Valproic Acid Liquid 250 Mg/5 Ml Solution) 500 mg PO TID [facility] Last Admin: 06/02/24 08:53 Dose: 500 mg Home Medications ?Medication ?Instructions ?Recorded ?Confirmed ?Last Taken ?Type acamprosate 333 mg tablet,delayed 333 mg PO DAILY 04/29/24 04/29/24 Unknown History release amlodipine 10 mg tablet 10 mg PO DAILY 04/29/24 04/29/24 Unknown History clonidine HCl 0.1 mg tablet 0.1 mg PO BID 04/29/24 04/29/24 Unknown History empagliflozin 10 mg tablet 10 mg PO DAILY 04/29/24 04/29/24 Unknown History (Jardiance) fluticasone 250 mcg-salmeterol 50 1 ea inhalation BID 04/29/24 04/29/24 Unknown History mcg/dose blistr powdr for inhalation fluticasone propionate 50 1 spray intranasal DAILY 04/29/24 04/29/24 Unknown History mcg/actuation nasal spray,suspension glimepiride 4 mg tablet 4 mg PO DAILY 04/29/24 04/29/24 Unknown History insulin glargine 100 unit/mL (3 10 unit subcut BEDTIME 04/29/24 04/29/24 Unknown History mL) subcutaneous pen (Lantus Solostar U-100 Insulin) levothyroxine 200 mcg tablet 200 mcg PO DAILY@0600 04/29/24 04/29/24 Unknown History losartan 50 mg-hydrochlorothiazide 1 tab PO DAILY 04/29/24 04/29/24 Unknown History 12.5 mg tablet metformin 500 mg tablet 500 mg PO BID 04/29/24 04/29/24 Unknown History metoprolol succinate 100 mg 100 mg PO DAILY 04/29/24 04/29/24 Unknown History tablet,extended release 24 hr mometasone 0.1 % topical cream 1 appl topical DAILY 04/29/24 04/29/24 Unknown History montelukast 10 mg tablet 10 mg PO DAILY 04/29/24 04/29/24 Unknown History omeprazole 20 mg capsule,delayed 20 mg PO DAILY@0630 04/29/24 04/29/24 Unknown History release pregabalin 75 mg capsule 75 mg PO BID 04/29/24 04/29/24 Unknown History sertraline 100 mg tablet 100 mg PO DAILY 04/29/24 04/29/24 Unknown History tamsulosin 0.4 mg capsule 0.4 mg PO DAILY 04/29/24 04/29/24 Unknown History Physical Exam Vital Signs: Last Vital Signs Temp 98.5 F 06/02/24 07:37 Pulse 100 06/02/24 08:54 Resp 16 06/02/24 07:37 BP 160/80 H 06/02/24 08:54 Pulse Ox 95 06/02/24 07:37 O2 Del Method Nasal Cannula 06/02/24 07:37 O2 Flow Rate 2 06/02/24 07:37 FiO2 40 06/01/24 04:00 BMI result Body Mass Index 25.0 Results Lab Results 06/02/24 06:29 06/02/24 06:29 Lab results: Chemistry 05/31/24 05/31/24 06/01/24 05:17 18:00 05:43 Sodium 144 142 144 Potassium 3.0 L 3.6 3.4 Carbon Dioxide 29 27 27 BUN 19 H 20 H 22 H Creatinine 1.86 H 2.17 H 2.31 H Calcium 9.0 D 9.1 9.3 Phosphorus 4.4 4.2 06/02/24 06:29 Sodium 141 Potassium 3.6 Carbon Dioxide 27 BUN 21 H Creatinine 1.73 H Calcium 9.6 Phosphorus 3.9 Hematology 05/31/24 06/01/24 06/02/24 05:17 05:43 06:29 WBC 8.1 9.4 9.9 Hgb 9.6 L 9.7 L 9.9 L Plt Count 332 [id number] 355 Assessment and Plan (1) DARRELL (acute kidney injury): Status: Acute Plan Romaine has acute kidney injury. At the time admission he had acute kidney injury with a creatinine of 3.09. This resolved over a period of 7 days. He was sustained a 2nd episode of acute kidney injury. This is most likely due to tubular injury. He has had multiple episodes of hypotension. He also received vancomycin with the marginally elevated levels in the toxic range. Therefore vanco induced tubular injury could be an additional factor. No evidence of any obstruction ;glomerular nephritis or interstitial disease seem unlikely based on the clinical picture. Metabolic alkalosis. A probably has chloride responsive metabolic acidosis induced by Lasix. Hypokalemia due to translocation of potassium secondary to metabolic alkalosis. Serum potassium should normalize once alkalosis resolves. Recommendations Check urine for sodium, creatinine, protein and repeat urinalysis. Check urine chloride Optimize blood pressure. Avoid hypotension. Avoid intravenous rapidly acting antihypertensive agents as there is no absolute indication at this time. Agree with cautious hydration. Would hydrate with normal saline. Replace potassium as needed. Keep intake more than output for now. Monitor urine output. Avoid nephrotoxic agents including vancomycin. Procedures Date of Service Date of Service: 06/02/24
--- NOTE | 2024-06-02 11:14 | MHC.CM.PN ---
EMR reviewed and per MD rounds, pt is medically cleared for discharge to [facility]. Bed offer received from [facility] at [place]. This CM met with pt to discuss STR, pt is in agreement and accepts bed offer from [facility]. Will need insurance auth. Second IMM given 06/02.
[2024-06-02 11:21] LABS: Glucose, Whole Blood 192 mg/dL (60-115)
--- NOTE | 2024-06-02 11:29 | P.PNIM_ITS ---
Subjective Subjective Date of Service: 06/02/24 Interval History: seen and evaluated this morning Cr trending down still on O2 supplement tolerating PO no other events Review of Systems Review of Systems: Yes all other systems are reviewed and are negative Physical Exam 2 Vital Signs: Vital Signs: Last Vital Signs Temp 98.5 F 06/02/24 07:37 Pulse 100 06/02/24 08:54 Resp 16 06/02/24 07:37 BP 160/80 H 06/02/24 08:54 Pulse Ox 95 06/02/24 07:37 O2 Del Method Nasal Cannula 06/02/24 07:37 O2 Flow Rate 2 06/02/24 07:37 FiO2 40 06/01/24 04:00 BMI result Body Mass Index 25.0 Const: Other: Constitutional : Awake, interactive, not in distress Neck : Normal inspection, Supple Cardiovascular : RRR, no JVP, no lower extremity edema Respiratory : good bilateral air entry, no crackles, wheezes or rhonchi, on O2 supplement Gastrointestinal: soft, lax, Normal bowel sounds, Non tender Skin : Warm, Dry Neurological : Alert & oriented x3, No focal deficit Objective Data Active Medications Albuterol Sulfate (Albuterol Sulfate (0.083%) 2.5 Mg/3 Ml Vial.Neb) 2.5 mg INHALE Q3H PRN PRN Reason: Wheezing Last Admin: 05/28/24 05:01 Dose: 2.5 mg Documented By: HERO Amlodipine Besylate (Amlodipine Besylate 10 Mg Tablet) 10 mg PO DAILY [facility]; Protocol Last Admin: 06/02/24 08:54 Dose: 10 mg Documented By: AUDIE Dextrose (Dextrose 50 % 25 Gm/50 Ml Syringe) 25 gm IVPUSH Q15M PRN PRN Reason: per Hypoglycemia Standing Ord. Last Admin: 04/30/24 01:26 Dose: 25 gm Documented By: MCTJasiel Heparin Sodium (Porcine) (Heparin Sodium,Porcine 5,000 Unit/Ml Vial) 5,000 unit SUBCUT Q8H [facility] Last Admin: 06/02/24 08:54 Dose: 5,000 unit Documented By: AUDIE Lactated Ringer's (Lr) 1,000 mls @ 100 mls/hr IVCONT .Q10H [facility] Last Admin: 06/02/24 08:55 Dose: 100 mls/hr Documented By: AUDIE Insulin Human Lispro (Insulin Lispro 100 Unit/Ml 3 Ml Vial) 0 unit SUBCUT QIDACHS [facility]; Protocol Last Admin: 06/02/24 07:35 Dose: Not Given Documented By: AUDIE Non-Admin Reason: No Insulin Coverage Labetalol HCl (Labetalol Hcl 100 Mg/20 Ml Vial) 20 mg IVPUSH Q10M PRN PRN Reason: SBP > 160 Last Admin: 05/30/24 04:15 Dose: 20 mg Documented By: RUBEN Levothyroxine Sodium (Levothyroxine Sodium 200 Mcg Tablet) 200 mcg PO DAILY@0600 [facility] Last Admin: 06/02/24 06:18 Dose: 200 mcg Documented By: ETHEL Metoprolol Succinate (Metoprolol Succinate Er 100 Mg Tab.Er.24h) 100 mg PO DAILY [facility]; Protocol Last Admin: 06/02/24 08:54 Dose: 100 mg Documented By: AUDIE Ondansetron HCl (Ondansetron Hcl 4 Mg/2 Ml Vial) 4 mg IVPUSH Q4H PRN PRN Reason: Nausea and Vomiting Last Admin: 05/30/24 15:34 Dose: 4 mg Documented By: JUAN Quetiapine Fumarate (Quetiapine Fumarate 100 Mg Tablet) 100 mg PO BEDTIME [facility] Last Admin: 06/01/24 20:29 Dose: 100 mg Documented By: ETHEL Sodium Chloride (0.9 % Sodium Chloride Flush 3 Ml Syringe) 3 ml IVFLUSH QSHIFT [facility] Last Admin: 06/02/24 08:55 Dose: 3 ml Documented By: AUDIE Valproic Acid (Valproic Acid Liquid 250 Mg/5 Ml Solution) 500 mg PO TID [facility] Last Admin: 06/02/24 08:53 Dose: 500 mg Documented By: AUDIE Labs 06/02/24 06:29 06/02/24 06:29 Labs: Laboratory Results - last 24 hr 06/01/24 06/01/24 06/01/24 11:37 16:24 20:15 MCV MCH MCHC RDW Plt Count MPV Immature Gran % (Auto) Neut % (Auto) Lymph % (Auto) [place] % (Auto) Eos % (Auto) Baso % (Auto) Lymph # (Auto) [place] # (Auto) Eos # (Auto) Baso # (Auto) Abs Immat Gran (auto) Absolute Neuts (auto) Absolute Nucleated RBC Nucleated RBC % (auto) VBG pH VBG pCO2 VBG pO2 VBG HCO3 VBG O2 Saturation VBG Base Excess Anion Gap Estim Creat Clear Calc Estimated GFR POC Glucose 166 H 172 H 141 H Random Glucose Calcium Phosphorus Magnesium Albumin 06/02/24 06/02/24 06/02/24 06:29 06:37 07:00 MCV 100.3 H MCH 33.1 H MCHC 33.0 RDW 15.3 Plt Count 355 MPV 9.2 L Immature Gran % (Auto) 1.9 H Neut % (Auto) 61.0 Lymph % (Auto) 16.4 L [place] % (Auto) 9.8 Eos % (Auto) 10.0 H Baso % (Auto) 0.9 Lymph # (Auto) 1.6 [place] # (Auto) 1.0 Eos # (Auto) 1.0 H Baso # (Auto) 0.1 Abs Immat Gran (auto) 0.19 H Absolute Neuts (auto) 6.0 Absolute Nucleated RBC 0.000 Nucleated RBC % (auto) 0.0 VBG pH 7.46 H VBG pCO2 46 VBG pO2 66 VBG HCO3 34 H VBG O2 Saturation 92.0 VBG Base Excess 9.2 Anion Gap 16 Estim Creat Clear Calc 47.4 Estimated GFR 41 POC Glucose 126 H Random Glucose 130 H Calcium 9.6 Phosphorus 3.9 Magnesium 1.8 Albumin 3.8 06/02/24 11:17 MCV MCH MCHC RDW Plt Count MPV Immature Gran % (Auto) Neut % (Auto) Lymph % (Auto) [place] % (Auto) Eos % (Auto) Baso % (Auto) Lymph # (Auto) [place] # (Auto) Eos # (Auto) Baso # (Auto) Abs Immat Gran (auto) Absolute Neuts (auto) Absolute Nucleated RBC Nucleated RBC % (auto) VBG pH VBG pCO2 VBG pO2 VBG HCO3 VBG O2 Saturation VBG Base Excess Anion Gap Estim Creat Clear Calc Estimated GFR POC Glucose 192 H Random Glucose Calcium Phosphorus Magnesium Albumin Assessment and Plan (1) Critical illness myopathy: Status: Acute (2) Encephalopathy: Status: Acute (3) Aspiration pneumonia: Status: Acute (4) Acute respiratory failure with hypoxia: Status: Acute Plan A 58-year-old gentleman with underlying alcohol dependence, obesity, diabetes mellitus being admitted for hyperglycemia and alcohol withdrawal on background of acute metabolic acidosis with acute renal failure and hyponatremia. Had delerium tremens requiring ICU stay on Precedex drip. Post extubation on 05/26. frail and hypoxic. 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 likely induced by Lasix. Cr improved to 1.7 urine for sodium, creatinine, Cl protein and repeat urinalysis. avoid hypotension and nephrotoxins like Vanco hydrate with NS I\O follow BMP HTN Amlodipine and Metoprolol, monitor Alcohol withdrawal and toxic encephalopathy improved Continue on Seroquel/valproate diabetes mellitus continue sliding scale insulin hypothyroidism continue Synthroid DVT PPx Lovenox The patient will need overnight stay pending weaning down O2 and improvement in kidney function Quality Stroke Does the patient have a stroke diagnosis?: No VTE Prior VTE?: No VTE Risk Level:: Medical - moderate - high VTE Device Contraindication: Treatment Not Indicated VTE Drug Contraindication: N/A - Med Ordered
[2024-06-02] MEDS: Insulin Lispro 100 UNIT/ML 3 ML VIAL SUBCUT ×3 (11:44→19:51)
[2024-06-02] MEDS: 0.9 % Sodium Chloride 1,000 ML 75 ML IVCONT ×2 (11:46→23:31)
[2024-06-02 12:40] LABS: Creatinine Urine 100.58 mg/dL; Total Protein Urine Random 39 mg/dL (<12)
--- NOTE | 2024-06-02 14:22 | MHC.SL.SWA ---
Speech Pathologist Impression: Risk of Aspiration Due to: History of Pneumonia Hx of Recent Extubation Dysphasia Diet Status: Recommend UPGRADE diet to Ground/Mechanical (NDD2) continue on thin liquids, pills crushed or whole in puree. Liquid Consistency and Strategies for Safe Swallow: Liquid Intake Recommendation: Thin Liquid Intake Strategies: Small Sips Solid Food Consistency: Dietary Recommendations: Grnd/Mech Altered (NDD2) Additional Modifications to Solid Foods: Oral Medication Intake: Crushed with Puree Please contact the pharmacy regarding appropriate crushable or liquid drug formulations that are available whenever modified delivery is recommended. Compensatory Strategies and Precautions to be Taken for Safe Swallow: Sitting Upright (90 deg) Liquids from Cup Liquids from Straw Small Bites and Sips Alternate Liquids/Solids Rate of Ingestion Change Supervision While Eating and Drinking for Safe Swallow: None Needed Foods to Avoid: Swallowing Recommended Treatments: Compens. Strategy Educat. Recommendation for Speech: Inpatient Speech Therapy Comment: Patient was eating lunch at time of treatment, had consumed most of the food on tray, expressing general pleasure with the meal. Patient indeed was very pleasant and engaging today, conversant about is surroundings, reporting some frustration as having lost his dentures during this hospital stay. CUSTOMER PRICING MANAGER suggested trial for possible upgrade of food, as he has been on puree for prolonged period. Patient took tsps of crumbled crackers in puree, mashing up the texture with gums using rotary chew, timely oral phase with timely swallow, mild oral residual noted but cleared with either re-swallow or sip of liquid. Patient observed drinking liquids with straw, with no difficulty. Recommend UPGRADE diet to Ground/Mechanical (NDD2) continue on thin liquids, pills crushed or whole in puree. CUSTOMER PRICING MANAGER will continue to follow. Frequency/Duration: daily M-F and weekends if needed Date Range for Service Req: Timeline to reassess: Orthophotography Technician Clinican/Clinical Fellow: No Supervisory Statement: I have reviewed and agree with the student/clinical fellow's documentation: N/A Speech Language Pathologist: Vinita Alfred M.A., [facility]-CUSTOMER PRICING MANAGER
[2024-06-02 16:15] LABS: Glucose, Whole Blood 181 mg/dL (60-115)
[2024-06-02] MEDS: Acetaminophen 325 MG TABLET 650 MG PO (16:37)
[2024-06-02] MEDS: QUEtiapine Fumarate 100 MG TABLET PO (19:48)
[2024-06-02 20:06] LABS: Glucose, Whole Blood 172 mg/dL (60-115)
[2024-06-03] VITALS (7 sets, daily range): BP systolic 112–172; BP diastolic 82–90; PULSE 89–100; RESP 16–20; TEMP 36.5–37.1; O2SAT 94–98
[2024-06-03] MEDS: Acetaminophen 325 MG TABLET 650 MG PO (05:33)
[2024-06-03] MEDS: Levothyroxine Sodium 200 MCG TABLET PO (05:34)
[2024-06-03 07:07] LABS: Glucose, Whole Blood 128 mg/dL (60-115)
[2024-06-03 07:11] LABS: MANUAL DIFF FLAG NO
[2024-06-03 07:27] LABS: Basophils Absolute Auto 0.1 X10*3/uL (0.0-0.2); Eosinophils Absolute Auto 0.8 X10*3/uL (0.0-0.4); Hematocrit 28.7 % (42.0-52.0); Hemoglobin 9.3 g/dl (14.0-18.0); Imm Gran Abs Auto 0.11 X10*3/uL (0.00-0.03); Imm Gran Pct Auto 1.5 % (0.0-0.4); Lymphocytes Absolute Auto 1.3 X10*3/uL (1.2-4.9); Lymphocytes Percent Auto 18.1 % (20-40); Mean Corpuscular HGB Conc 32.4 g/dl (31.0-36.0); Mean Corpuscular Hemoglobin 32.6 pg (27.0-33.0); Mean Corpuscular Volume 100.7 fL (80.0-98.0); Mean Platelet Volume 9.7 fL (9.4-12.4); Monocytes Absolute Auto 0.8 X10*3/uL (0.1-1.2); Monocytes Percent Auto 10.5 % (2-11); Neutrophils Absolute Auto 4.2 x10*3/uL (2.0-8.3); Neutrophils Percent Auto 57.9 % (45-73); Platelet Count 354 X10*3/uL (160-400); Red Blood Count 2.85 X10*6/uL (4.60-5.80); Red Cell Distribution Width 15.1 % (11.0-16.0); White Blood Count 7.3 X10*3/uL (4.8-10.8)
[2024-06-03 07:45] LABS: Anion Gap 16 (12-20); Blood Urea Nitrogen 20 mg/dL (9-16); Calcium 9.5 mg/dL (8.4-10.2); Carbon Dioxide 26 mmol/L (22-29); Chloride 102 mmol/L (96-108); Creatinine Clr Calc Pharmacy 56.2; Estimated Glomerular Filt Rate 49; Glucose Random 126 mg/dL (60-115); Potassium 3.7 mmol/L (3.3-5.1); Sodium 140 mmol/L (135-145)
[2024-06-03] MEDS: Valproic Acid Liquid 250 MG/5 ML SOLUTION 500 MG PO ×3 (09:05→19:53)
[2024-06-03] MEDS: amLODIPine Besylate 10 MG TABLET PO (09:06)
[2024-06-03] MEDS: Heparin Sodium,Porcine 5,000 UNIT/ML VIAL 5000 UNIT SUBCUT ×3 (09:06→23:47)
[2024-06-03] MEDS: Metoprolol Succinate ER 100 MG TAB.ER.24H PO (09:06)
[2024-06-03 11:12] LABS: Glucose, Whole Blood 201 mg/dL (60-115)
--- NOTE | 2024-06-03 11:49 | MHC.SL.SWA ---
Speech Pathologist Impression: Risk of Aspiration, Oropharyngeal Dysphagia Risk of Aspiration Due to: History of Pneumonia Hx of Recent Extubation Dysphasia Diet Status: Continue on Ground/Mechanical (NDD2) and Thin Liquids, pills crushed or whole in puree. Liquid Consistency and Strategies for Safe Swallow: Liquid Intake Recommendation: Thin Liquid Intake Strategies: Small Sips Solid Food Consistency: Dietary Recommendations: Grnd/Mech Altered (NDD2) Oral Medication Intake: Crushed with Puree Please contact the pharmacy regarding appropriate crushable or liquid drug formulations that are available whenever modified delivery is recommended. Compensatory Strategies and Precautions to be Taken for Safe Swallow: Sitting Upright (90 deg) Liquids from Cup Liquids from Straw Small Bites and Sips Alternate Liquids/Solids Rate of Ingestion Change Supervision While Eating and Drinking for Safe Swallow: Intermittent Supervision Swallowing Recommended Treatments: Compens. Strategy Educat. Recommendation for Speech: Inpatient Speech Therapy Frequency/Duration: daily M-F Date Range for Service Req: Timeline to reassess: Survey Research Manager Clinican/Clinical Fellow: No Supervisory Statement: I have reviewed and agree with the student/clinical fellow's documentation: N/A Speech Language Pathologist: Jess Ferrara M.A., CCC-[facility] [employer]
[2024-06-03] MEDS: Insulin Lispro 100 UNIT/ML 3 ML VIAL SUBCUT (11:53)
[2024-06-03] MEDS: 0.9 % Sodium Chloride 1,000 ML 75 ML IVCONT (11:53)
--- NOTE | 2024-06-03 13:47 | HO.PM.IMPN ---
Subjective Subjective Date of Service: 06/03/24 Interval History: f/u on post icu care for alcohol withdrawal, pna with hypoxia, encephalopathy, overall making progress, still on high amount of O2 5 liters Physical Exam Vital Signs: Vital Signs: Last Vital Signs Temp 98.5 F 06/03/24 11:11 Pulse 100 06/03/24 11:58 Resp 16 06/03/24 11:11 BP 146/82 H 06/03/24 11:58 Pulse Ox 94 06/03/24 11:58 O2 Del Method Nasal Cannula 06/03/24 11:11 O2 Flow Rate 2 06/03/24 11:11 FiO2 40 06/01/24 04:00 BMI result Body Mass Index 25.0 Const: Other: Constitutional : Awake, interactive, not in distress Neck : Normal inspection, Supple Cardiovascular : RRR, no JVP, no lower extremity edema Respiratory : good bilateral air entry, no crackles, wheezes or rhonchi, on O2 supplement Gastrointestinal: soft, lax, Normal bowel sounds, Non tender Skin : Warm, Dry Neurological : Alert & oriented x3, No focal deficit Objective Data Active Medications Acetaminophen (Acetaminophen 325 Mg Tablet) 650 mg PO Q6H PRN PRN Reason: Pain, Mild 1-3,fever,headache Last Admin: 06/03/24 05:33 Dose: 650 mg Documented By: CANDE Albuterol Sulfate (Albuterol Sulfate (0.083%) 2.5 Mg/3 Ml Vial.Neb) 2.5 mg INHALE Q3H PRN PRN Reason: Wheezing Last Admin: 05/28/24 05:01 Dose: 2.5 mg Documented By: HERO Amlodipine Besylate (Amlodipine Besylate 10 Mg Tablet) 10 mg PO DAILY [facility]; Protocol Last Admin: 06/03/24 09:06 Dose: 10 mg Documented By: DANIEL Dextrose (Dextrose 50 % 25 Gm/50 Ml Syringe) 25 gm IVPUSH Q15M PRN PRN Reason: per Hypoglycemia Standing Ord. Last Admin: 04/30/24 01:26 Dose: 25 gm Documented By: KERVIN Heparin Sodium (Porcine) (Heparin Sodium,Porcine 5,000 Unit/Ml Vial) 5,000 unit SUBCUT Q8H MARKO Last Admin: 06/03/24 09:06 Dose: 5,000 unit Documented By: DANIEL Sodium Chloride (Ns) 1,000 mls @ 75 mls/hr IVCONT .[id number] [facility] Last Admin: 06/03/24 11:53 Dose: 75 mls/hr Documented By: DANIEL Insulin Human Lispro (Insulin Lispro 100 Unit/Ml 3 Ml Vial) 0 unit SUBCUT QIDACHS [facility]; Protocol Last Admin: 06/03/24 11:53 Dose: 4 unit Documented By: DANIEL Levothyroxine Sodium (Levothyroxine Sodium 200 Mcg Tablet) 200 mcg PO DAILY@0600 [facility] Last Admin: 06/03/24 05:34 Dose: 200 mcg Documented By: CANDE Metoprolol Succinate (Metoprolol Succinate Er 100 Mg Tab.Er.24h) 100 mg PO DAILY [facility]; Protocol Last Admin: 06/03/24 09:06 Dose: 100 mg Documented By: DANIEL Ondansetron HCl (Ondansetron Hcl 4 Mg/2 Ml Vial) 4 mg IVPUSH Q4H PRN PRN Reason: Nausea and Vomiting Last Admin: 05/30/24 15:34 Dose: 4 mg Documented By: JUAN Quetiapine Fumarate (Quetiapine Fumarate 100 Mg Tablet) 100 mg PO BEDTIME [facility] Last Admin: 06/02/24 19:48 Dose: 100 mg Documented By: CANDE Sodium Chloride (0.9 % Sodium Chloride Flush 3 Ml Syringe) 3 ml IVFLUSH QSHIFT [facility] Last Admin: 06/03/24 11:40 Dose: Not Given Documented By: DANIEL Non-Admin Reason: Previously Administered Valproic Acid (Valproic Acid Liquid 250 Mg/5 Ml Solution) 500 mg PO TID [facility] Last Admin: 06/03/24 09:05 Dose: 500 mg Documented By: DANIEL Labs 06/03/24 06:33 06/03/24 06:33 Labs: Laboratory Results - last 24 hr 06/02/24 06/02/24 06/03/24 16:11 19:50 06:33 MCV 100.7 H MCH 32.6 MCHC 32.4 RDW 15.1 Plt Count 354 MPV 9.7 Immature Gran % (Auto) 1.5 H Neut % (Auto) 57.9 Lymph % (Auto) 18.1 L [place] % (Auto) 10.5 Eos % (Auto) 11.0 H Baso % (Auto) 1.0 Lymph # (Auto) 1.3 [place] # (Auto) 0.8 Eos # (Auto) 0.8 H Baso # (Auto) 0.1 Abs Immat Gran (auto) 0.11 H Absolute Neuts (auto) 4.2 Absolute Nucleated RBC 0.000 Nucleated RBC % (auto) 0.0 Anion Gap 16 Estim Creat Clear Calc 56.2 Estimated GFR 49 POC Glucose 181 H 172 H Random Glucose 126 H Calcium 9.5 06/03/24 06/03/24 07:03 11:05 MCV MCH MCHC RDW Plt Count MPV Immature Gran % (Auto) Neut % (Auto) Lymph % (Auto) [place] % (Auto) Eos % (Auto) Baso % (Auto) Lymph # (Auto) [place] # (Auto) Eos # (Auto) Baso # (Auto) Abs Immat Gran (auto) Absolute Neuts (auto) Absolute Nucleated RBC Nucleated RBC % (auto) Anion Gap Estim Creat Clear Calc Estimated GFR POC Glucose 128 H 201 H Random Glucose Calcium Assessment and Plan (1) Critical illness myopathy: Status: Acute (2) Encephalopathy: Status: Acute (3) Aspiration pneumonia: Status: Acute (4) Acute respiratory failure with hypoxia: Status: Acute Plan A 58-year-old gentleman with underlying alcohol dependence, obesity, diabetes mellitus being admitted for hyperglycemia and alcohol withdrawal on background of acute metabolic acidosis with acute renal failure and hyponatremia. Had delerium tremens requiring ICU stay on Precedex drip. Post extubation on 05/26. frail and hypoxic. hypoxia secondary to Aspiration MRSA pneumonia completed course of Abx Consider steroids if unable to wean off wean down O2 as tolerated [employer] following, diet advanced Incentive spirometry PHysical deconditioning and critical illness myopathy PT eval, SNF placement DARRELL complicated with acyte hypokalemia and Metabolic alkalosis. likely induced by Lasix. Cr improved to 1.4 urine for sodium, creatinine, Cl protein and repeat urinalysis. avoid hypotension and nephrotoxins like Vanco I\O follow BMP HTN Amlodipine and Metoprolol, monitor Alcohol withdrawal and toxic encephalopathy improved Continue on Seroquel/valproate diabetes mellitus continue sliding scale insulin hypothyroidism continue Synthroid DVT PPx heparin The patient will need overnight stay pending weaning down O2 and improvement in kidney function DC to SNF when medically ready Quality Stroke Does the patient have a stroke diagnosis?: No VTE Prior VTE?: No VTE Risk Level:: Medical - moderate - high VTE Device Contraindication: Treatment Not Indicated VTE Drug Contraindication: N/A - Med Ordered
--- NOTE | 2024-06-03 15:07 | MHC.CM.PN ---
Per MD rounds patient is not medically cleared for discharge. MD is monitoring renal function. Patient continues with DARRELL. [facility] has obtained insurance authorization. The facility will be able to accept the patient once he is medically cleared for discharge.
--- NOTE | 2024-06-03 15:25 | P.PNNP_ITS ---
Subjective Subjective Date of Service: 06/03/24 Interval history: Events noted. All recent data reviewed. Renal functions improving. D/W Hospitalist Physical Exam 2 Vital Signs: Vital Signs: Last Vital Signs Temp 98.5 F 06/03/24 11:11 Pulse 100 06/03/24 11:58 Resp 16 06/03/24 11:11 BP 146/82 H 06/03/24 11:58 Pulse Ox 94 06/03/24 11:58 O2 Del Method Nasal Cannula 06/03/24 11:11 O2 Flow Rate 2 06/03/24 11:11 FiO2 40 06/01/24 04:00 BMI result Body Mass Index 25.0 Const: General: no acute distress Neck: Neck: Yes supple Resp: Auscultation: diminished lung sounds Cardio: Rate: regular rate GI: Palpation (GI): Soft to palpation Neuro: General: moves all extremities Objective Data Labs 06/03/24 06:33 06/03/24 06:33 Labs: Laboratory Results - last 24 hr 06/02/24 06/02/24 06/03/24 16:11 19:50 06:33 WBC 7.3 RBC 2.85 L Hgb 9.3 L Hct 28.7 L MCV 100.7 H MCH 32.6 MCHC 32.4 RDW 15.1 Plt Count 354 MPV 9.7 Immature Gran % (Auto) 1.5 H Neut % (Auto) 57.9 Lymph % (Auto) 18.1 L [place] % (Auto) 10.5 Eos % (Auto) 11.0 H Baso % (Auto) 1.0 Lymph # (Auto) 1.3 [place] # (Auto) 0.8 Eos # (Auto) 0.8 H Baso # (Auto) 0.1 Abs Immat Gran (auto) 0.11 H Absolute Neuts (auto) 4.2 Absolute Nucleated RBC 0.000 Nucleated RBC % (auto) 0.0 Sodium 140 Potassium 3.7 Chloride 102 Carbon Dioxide 26 Anion Gap 16 BUN 20 H Creatinine 1.46 H Estim Creat Clear Calc 56.2 Estimated GFR 49 POC Glucose 181 H 172 H Random Glucose 126 H Calcium 9.5 06/03/24 06/03/24 07:03 11:05 WBC RBC Hgb Hct MCV MCH MCHC RDW Plt Count MPV Immature Gran % (Auto) Neut % (Auto) Lymph % (Auto) [place] % (Auto) Eos % (Auto) Baso % (Auto) Lymph # (Auto) [place] # (Auto) Eos # (Auto) Baso # (Auto) Abs Immat Gran (auto) Absolute Neuts (auto) Absolute Nucleated RBC Nucleated RBC % (auto) Sodium Potassium Chloride Carbon Dioxide Anion Gap BUN Creatinine Estim Creat Clear Calc Estimated GFR POC Glucose 128 H 201 H Random Glucose Calcium Microbiology Microbiology Results: Microbiology 05/23/24 10:49 Tracheal Aspirate Gram Stain - Final 05/23/24 10:49 Tracheal Aspirate Sputum Culture - Final Methicillin Res Staph Aureus 05/05/24 07:50 Tracheal Aspirate Gram Stain - Final 05/05/24 07:50 Tracheal Aspirate Sputum Culture - Final Methicillin Res Staph Aureus 04/29/24 10:33 Blood - Venous Blood Culture - Final No growth after 5 days. 04/29/24 10:33 Blood - Venous Blood Culture - Final No growth after 5 days. Procedures Date of Service Date of Service: 06/03/24 Assessment & Plan Assessment and plan (1) DARRELL (acute kidney injury): Status: Acute Plan DARRELL due to tubular injury Urine output good Hemodynamics OK Serum creatinine improving C/W rest of current supportive mgt Shall arrange F/U in couple of weeks after D/C Progress Note: Quality Stroke Does the patient have a stroke diagnosis?: No
[2024-06-03 16:37] LABS: Glucose, Whole Blood 116 mg/dL (60-115)
[2024-06-03] MEDS: QUEtiapine Fumarate 100 MG TABLET PO (19:53)
[2024-06-03] MEDS: 0.9 % Sodium Chloride Flush 3 ML SYRINGE IVFLUSH (19:53)
[2024-06-03 20:47] LABS: Glucose, Whole Blood 148 mg/dL (60-115)
[2024-06-04] MEDS: 0.9 % Sodium Chloride 1,000 ML 75 ML IVCONT (02:07)
[2024-06-04 03:58] VITALS: BP 123/76; PULSE 92; RESP 18; TEMP 36.2; O2SAT 96
[2024-06-04] MEDS: Levothyroxine Sodium 200 MCG TABLET PO (05:50)
[2024-06-04 07:15] VITALS: BP 162/96; PULSE 95; RESP 20; TEMP 37; O2SAT 96
[2024-06-04 07:15] LABS: Glucose, Whole Blood 125 mg/dL (60-115)
[2024-06-04] MEDS: amLODIPine Besylate 10 MG TABLET PO (08:20)
[2024-06-04] MEDS: Metoprolol Succinate ER 100 MG TAB.ER.24H PO (08:21)
[2024-06-04] MEDS: Valproic Acid Liquid 250 MG/5 ML SOLUTION 500 MG PO ×2 (08:21→14:11)
[2024-06-04] MEDS: Heparin Sodium,Porcine 5,000 UNIT/ML VIAL 5000 UNIT SUBCUT (08:22)
--- NOTE | 2024-06-04 11:23 | P.DS_ITS ---
DS: Providers Provider Date of Service: 06/04/24 Date of admission: 04/29/24 14:24 Date of discharge: 06/04/24 Primary care physician: Rita Fierro MD Consults: 05/14/24 01:44 Consult to Wound Care Routine Reason for consultation: Right great toe ?ulcer, Left plantar ?ulcer 05/14/24 11:45 Consult to Urology Routine Consulting Provider: [facility] Reason for consultation: Unable to place Stiles catheter Has provider been notified: No 06/01/24 22:53 Consult to Nephrology Routine Consulting Provider: [facility] Reason for consultation: darrell Has provider been notified: No DS: Diagnosis Discharge Diagnosis (1) Critical illness myopathy: Status: Acute (2) Encephalopathy: Status: Acute (3) Aspiration pneumonia: Status: Acute (4) Acute respiratory failure with hypoxia: Status: Acute DS: Summary Hospital Course Hospital Course: The patient is a 58-year-old male with a history of alcohol dependence, obesity, and diabetes mellitus who was admitted for hyperglycemia and alcohol withdrawal, in the setting of acute metabolic acidosis, acute renal failure, and hyponatremia, likely secondary to beer potomania. He required intubation on 04/30/2024 due to high sedative requirements for management of delirium tremens. He was extubated on 05/05/2024 but continued to experience significant toxic encephalopathy, requiring a Precedex infusion. On 05/13/2024, the patient was reintubated because of persistent high sedative needs. A chest CT performed on 05/21/2024 revealed small bilateral pleural effusions and bibasilar atelectasis. He was successfully extubated again on 05/26/2024 and sedative drips were gradually weaned off. During his course, he developed acute kidney injury (DARRELL), likely secondary to pre-renal azotemia, which has since improved with intravenous fluid resuscitation. The patient remains significantly deconditioned, consistent with ICU-acquired myopathy. Problems: Alcohol withdrawal with encephalopathy--required heavy sedation in icu and including intubation as stated above, he is doing much better now. He is presently on Depakote and seroquel and no behavior issues at this time. Acute hypoxia secondary to Aspiration MRSA pneumonia, sepsis--completed treatment with vancomycin, no hypoxia during the day but needs oxygen at night for OA, O2 sat 93 on room air PHysical deconditioning and critical illness/ICU myopathy. PT recommends STR DARRELL complicated with acute hypokalemia and Metabolic alkalosis. Baseline creartine is < 1 and peaked at 2.3 on 06/01, likely induced by Lasix. Creatine is trending down, presently . He was seen by Nephrology and will see him on outpatient basis HTN--Amlodipine and Metoprolol, HCTZ stopped Thrombocytopenia/ related to alcohol use resolved Hyponatremia d/t beer potomania and SSRI, resolved. Diabetes, previously was on jardiance, glimerperide, lantus--He has not been on those agents since hospitalization... and has been on sliding scale insulin, BS are up to 200s and will restart Lantus 10 units at night in addition to sliding scale and hold Jardiance and Glimeperide for now Diabetic diet hypothyroidism--continue Synthroid Mood disorder-- previous sertraline discontinued as possible cause of hyponatremia. He has been put on Seroquel and Depakote and seems to be doing well with that. Final diagnoses: Alcohol withdrawal Acute hypoxic respiratory failure metabolic encephalpathy DTs Aspiration pneumonia Critical ilness myopathy hyponatremia DARRELL Thrombocytopenia transaminitis Time Attestation Discharge Coordination Time (in mins): 35 Quality: Safe Use of Opioids Does Pt have an Active Cancer Diagnosis on the Problem List?: No Quality: Stroke Does the patient have a stroke diagnosis?: No Physical Exam Vital Signs: Vital Signs: Last Vital Signs Temp 98.6 F 06/04/24 07:15 Pulse 95 06/04/24 07:15 Resp 20 06/04/24 07:15 BP 162/96 H 06/04/24 07:15 Pulse Ox 96 06/04/24 07:15 O2 Del Method Oxymask 06/04/24 07:15 O2 Flow Rate 5 06/04/24 07:15 FiO2 40 06/01/24 04:00 BMI result Body Mass Index 25.0 Const: Other: Constitutional : Awake, interactive, not in distress Neck : Normal inspection, Supple Cardiovascular : RRR, no JVP, no lower extremity edema Respiratory : good bilateral air entry, no crackles, wheezes or rhonchi, on O2 supplement Gastrointestinal: soft, lax, Normal bowel sounds, Non tender Skin : Warm, Dry Neurological : Alert & oriented x3, No focal deficit DS: Data Data Completed and Pending Labs on day of discharge: Laboratory Results - last 24 hr 06/03/24 06/03/24 06/04/24 16:32 19:51 07:10 POC Glucose 116 H 148 H 125 H Discharge Plan Discharge Anticipated Discharge Date/Time: 06/04/24 11:52 Patient Disposition: Xfer SNF Discharge Diagnosis: alcohol withdrawal, metabolic encephalopathy, pneumonia, renal failure, hyponatremia, [facility] [place] [facility] Sagrario Fierro MD [Primary Care Provider] - 1 Week Discharge Medications: New quetiapine 100 mg Tablet 100 mg PO BEDTIME Qty: 30 0RF valproic acid (as sodium salt) 250 mg/5 mL (5 mL) Solution 500 mg PO TID Qty: 500 0RF Continued fluticasone propion-salmeterol 250-50 mcg/dose blister with device 1 ea inhalation BID metoprolol succinate 100 mg tablet extended release 24 hr 100 mg PO DAILY tamsulosin 0.4 mg capsule 0.4 mg PO DAILY amlodipine 10 mg tablet 10 mg PO DAILY omeprazole 20 mg capsule,delayed release(DR/EC) 20 mg PO DAILY@0630 montelukast 10 mg tablet 10 mg PO DAILY levothyroxine 200 mcg tablet 200 mcg PO DAILY@0600 fluticasone propionate 50 mcg/actuation spray,suspension 1 spray intranasal DAILY mometasone 0.1 % cream 1 appl topical DAILY insulin glargine [Lantus Solostar U-100 Insulin] 100 unit/mL (3 mL) insulin pen 10 unit subcut BEDTIME Discontinued metformin 500 mg tablet 500 mg PO BID clonidine HCl 0.1 mg tablet 0.1 mg PO BID sertraline 100 mg tablet 100 mg PO DAILY glimepiride 4 mg tablet 4 mg PO DAILY losartan-hydrochlorothiazide 50-12.5 mg tablet 1 tab PO DAILY acamprosate 333 mg tablet,delayed release (DR/EC) 333 mg PO DAILY pregabalin 75 mg capsule 75 mg PO BID Jardiance 10 mg tablet 10 mg PO DAILY Discharge Orders: Discharge Order (Routine); Ordered 06/04/24 Ordered By: Richard Franklin Diet: Advance to usual diet Activity on Discharge: As tolerated Stand Alone Forms: Patient Portal Discharge page Print Language: Unable To Collect Care Plan Goals: Improve the patient?s mental status and physical strength through continued management of encephalopathy and rehabilitation for ICU-acquired weakness, support renal recovery, and prevent further respiratory complications. Health Concerns: Severe deconditioning and ICU-acquired myopathy Toxic/metabolic encephalopathy Recent acute kidney injury (DARRELL) secondary to pre-renal azotemia History of alcohol dependence and delirium tremens Recent respiratory failure requiring intubation and mechanical ventilation Underlying chronic illnesses: obesity, diabetes mellitus Plan of Treatment: The patient will be discharged to a rehabilitation facility for continued physical therapy and occupational therapy to address severe deconditioning from ICU-acquired myopathy. He will continue supportive care for ongoing recovery from toxic encephalopathy. Monitor renal function with serial labs and ensure adequate hydration. Follow up with primary care and nephrology post-discharge. Encourage gradual mobility advancement and respiratory exercises to prevent further pulmonary complications. Assessment: see above
[2024-06-04 11:35] VITALS: BP 100/54; PULSE 99; RESP 22; TEMP 36.9; O2SAT 93
[2024-06-04 11:49] LABS: Glucose, Whole Blood 226 mg/dL (60-115)
[2024-06-04 12:07] LABS: Anion Gap 15 (12-20); Blood Urea Nitrogen 17 mg/dL (9-16); Calcium 9.3 mg/dL (8.4-10.2); Carbon Dioxide 27 mmol/L (22-29); Chloride 99 mmol/L (96-108); Creatinine Clr Calc Pharmacy 59.9; Estimated Glomerular Filt Rate 53; Glucose Random 199 mg/dL (60-115); Potassium 3.9 mmol/L (3.3-5.1); Sodium 137 mmol/L (135-145)
[2024-06-04] MEDS: Insulin Lispro 100 UNIT/ML 3 ML VIAL SUBCUT (12:07)
--- NOTE | 2024-06-04 13:31 | MHC.CM.PN ---
PT CLEARED TO DC TODAY CM SPOKE TO PT ALONG WITH HIS SISTERS, KESHA AND ORTEGA, AT BEDSIDE PT IS AGREEABLE TO STR AND HAS ACCEPTED A BED AT [facility] SN[facility] HAS AUTH BLS TRANSPORT BOOKED WITH [facility] FOR 1530 HOURS
--- NOTE | 2024-06-04 14:32 | PC.NURSE ---
[facility]. CM aware
== END 2024-06-04 15:30 | disposition skilled nursing facility (03) | DRG 870 ==
LOC: HO.ED 11:25 → HO.EDOVER 14:44 → HO.ICU 16:06 → HO.IMC 06-01 13:36
PROVIDERS: Internal Medicine Hypertension Specialist; Internal Medicine Pulmonary Disease; Physician Assistant; Physician Assistant Medical; Registered Nurse Community Health; Student in an Organized Health Care Education/Training Program; Admitting Provider Nurse Practitioner Family; Emergency Provider Emergency Medicine; PCP Internal Medicine; Responsible Provider Internal Medicine Critical Care Medicine; Visit Provider Internal Medicine
DX: A41.9 Sepsis, unspecified organism (principal); G92.8 Other toxic encephalopathy; R57.0 Cardiogenic shock; J69.0 Pneumonitis due to inhalation of food and vomit; I50.41 Acute combined systolic (congestive) and diastolic (congestive) heart failure; E87.1 Hypo-osmolality and hyponatremia; E87.21 Acute metabolic acidosis; F10.231 Alcohol dependence with withdrawal delirium; J98.11 Atelectasis; J91.8 Pleural effusion in other conditions classified elsewhere; G72.81 Critical illness myopathy; N17.9 Acute kidney failure, unspecified; E87.3 Alkalosis; E03.9 Hypothyroidism, unspecified; E11.649 Type 2 diabetes mellitus with hypoglycemia without coma; E83.42 Hypomagnesemia; B95.62 Methicillin resistant Staphylococcus aureus infection as the cause of diseases classified elsewhere; D69.59 Other secondary thrombocytopenia; E87.6 Hypokalemia; D64.9 Anemia, unspecified; K70.9 Alcoholic liver disease, unspecified; R53.81 Other malaise; F17.210 Nicotine dependence, cigarettes, uncomplicated; E83.39 Other disorders of phosphorus metabolism; Z78.1 Physical restraint status; Y90.3 Blood alcohol level of 60-79 mg/100 ml; Z71.6 Tobacco abuse counseling; Z79.4 Long term (current) use of insulin; Z79.51 Long term (current) use of inhaled steroids; Z79.890 Hormone replacement therapy; Z79.899 Other long term (current) drug therapy
CPT/HCPCS: 36415; 70450; 70486; 70551; 71045; 71250; 72125; 74176; 76705; 80048; 80053; 80164; 80202; 80307; 81001; 82010; 82040; 82140; 82436; 82550; 82565; 82570; 82803; 82947; 83605; 83735; 84100; 84156; 84300; 84443; 84478; 84484; 85007; 85025; 85027; 85610; 86704; 86706; 86709; 86803; 87040; 87070; 87077; 87186; 87205; 87340; 92526; 92610; 93005; 93970; 94002; 94003; 94640; 94660; 94799; 97110; 97116; 97163; 97530; 99285; J0295; J0360; J0456; J0613; J0651; J0696; J1644; J1808; J1920; J1938; J1940; J2060; J2250; J2251; J2270; J2359; J2405; J2543; J2560; J2597; J2704; J3010; J3370; J3371; J3411; J3475; J3480; J3486; J7120; P9047

== ENCOUNTER → 2024-04-29 10:24 | Outpatient (BNV) | payer MEDICARE, MEDICAID, SELFPAY | PROVIDERS: Emergency Provider Emergency Medicine; PCP Internal Medicine; Visit Provider Radiology Diagnostic Radiology | DX: R74.01 Elevation of levels of liver transaminase levels (principal); J18.9 Pneumonia, unspecified organism; R16.0 Hepatomegaly, not elsewhere classified; K57.30 Diverticulosis of large intestine without perforation or abscess without bleeding; M47.812 Spondylosis without myelopathy or radiculopathy, cervical region; S09.93XA Unspecified injury of face, initial encounter; W19.XXXA Unspecified fall, initial encounter | CPT/HCPCS: 70450; 70486; 71045; 71250; 72125; 74176; 76705 ==

== ENCOUNTER → 2024-04-29 10:24 | Outpatient (BNV) | payer MEDICARE, MEDICAID, SELFPAY | PROVIDERS: Admitting Provider Nurse Practitioner Family; Emergency Provider Emergency Medicine; PCP Internal Medicine; Visit Provider Internal Medicine Cardiovascular Disease | DX: R94.31 Abnormal electrocardiogram [ECG] [EKG] (principal); A41.9 Sepsis, unspecified organism | CPT/HCPCS: 93010 ==

== ENCOUNTER 2024-04-29 14:24 | Outpatient (BNV) | payer MEDICARE, MEDICAID, SELFPAY | END 2024-05-13 06:30 | PROVIDERS: Admitting Provider Nurse Practitioner Family; Emergency Provider Emergency Medicine; PCP Internal Medicine; Responsible Provider Internal Medicine Critical Care Medicine; Visit Provider Specialist | DX: Z93.4 Other artificial openings of gastrointestinal tract status (principal) | CPT/HCPCS: 71045 ==

== ENCOUNTER 2024-04-29 14:24 | Outpatient (BNV) | payer MEDICARE, MEDICAID, SELFPAY | END 2024-05-16 09:28 | PROVIDERS: Admitting Provider Nurse Practitioner Family; Emergency Provider Emergency Medicine; PCP Internal Medicine; Responsible Provider Internal Medicine Critical Care Medicine; Visit Provider Radiology Diagnostic Radiology | DX: J98.4 Other disorders of lung (principal); R91.8 Other nonspecific abnormal finding of lung field | CPT/HCPCS: 71045 ==

== ENCOUNTER 2024-04-29 14:24 | Outpatient (BNV) | payer MEDICARE, MEDICAID, SELFPAY | END 2024-05-27 11:44 | PROVIDERS: Admitting Provider Nurse Practitioner Family; Emergency Provider Emergency Medicine; PCP Internal Medicine; Responsible Provider Internal Medicine Critical Care Medicine; Visit Provider Internal Medicine Cardiovascular Disease | DX: I25.2 Old myocardial infarction (principal); R00.0 Tachycardia, unspecified | CPT/HCPCS: 93010 ==

== ENCOUNTER 2024-04-29 14:24 | Outpatient (BNV) | payer MEDICARE, MEDICAID, SELFPAY | END 2024-05-26 09:55 | PROVIDERS: Admitting Provider Nurse Practitioner Family; Emergency Provider Emergency Medicine; PCP Internal Medicine; Responsible Provider Internal Medicine Critical Care Medicine; Visit Provider Radiology Diagnostic Radiology | DX: R91.8 Other nonspecific abnormal finding of lung field (principal) | CPT/HCPCS: 71045 ==

== ENCOUNTER 2024-04-29 14:24 | Outpatient (BNV) | payer MEDICARE, MEDICAID, SELFPAY | END 2024-05-25 21:19 | PROVIDERS: Admitting Provider Nurse Practitioner Family; Emergency Provider Emergency Medicine; PCP Internal Medicine; Responsible Provider Internal Medicine Critical Care Medicine; Visit Provider Internal Medicine Cardiovascular Disease | DX: I25.2 Old myocardial infarction (principal) | CPT/HCPCS: 93010 ==

== ENCOUNTER 2024-04-29 14:24 | Outpatient (BNV) | payer MEDICARE, MEDICAID, SELFPAY | END 2024-05-03 09:53 | PROVIDERS: Admitting Provider Nurse Practitioner Family; Emergency Provider Emergency Medicine; PCP Internal Medicine; Responsible Provider Internal Medicine Critical Care Medicine; Visit Provider Radiology Diagnostic Radiology | DX: R91.8 Other nonspecific abnormal finding of lung field (principal) | CPT/HCPCS: 71045 ==

== ENCOUNTER 2024-04-29 14:24 | Outpatient (BNV) | payer MEDICARE, MEDICAID, SELFPAY | END 2024-05-19 14:00 | PROVIDERS: Admitting Provider Nurse Practitioner Family; Emergency Provider Emergency Medicine; PCP Internal Medicine; Responsible Provider Internal Medicine Critical Care Medicine; Visit Provider Radiology Diagnostic Radiology | DX: G93.40 Encephalopathy, unspecified (principal); H74.8X3 Other specified disorders of middle ear and mastoid, bilateral | CPT/HCPCS: 70551 ==

== ENCOUNTER 2024-04-29 14:24 | Outpatient (BNV) | payer MEDICARE, MEDICAID, SELFPAY | END 2024-05-20 16:12 | PROVIDERS: Admitting Provider Nurse Practitioner Family; Emergency Provider Emergency Medicine; PCP Internal Medicine; Responsible Provider Internal Medicine Critical Care Medicine; Visit Provider Radiology Diagnostic Radiology | DX: Z93.0 Tracheostomy status (principal); Z93.4 Other artificial openings of gastrointestinal tract status | CPT/HCPCS: 71045 ==

== ENCOUNTER 2024-04-29 14:24 | Outpatient (BNV) | payer MEDICARE, MEDICAID, SELFPAY | END 2024-05-21 15:22 | PROVIDERS: Admitting Provider Nurse Practitioner Family; Emergency Provider Emergency Medicine; PCP Internal Medicine; Responsible Provider Internal Medicine Critical Care Medicine; Visit Provider Radiology Diagnostic Radiology | DX: J90 Pleural effusion, not elsewhere classified (principal); J98.11 Atelectasis; I51.7 Cardiomegaly | CPT/HCPCS: 71250 ==

== ENCOUNTER 2024-04-29 14:24 | Outpatient (BNV) | payer MEDICARE, MEDICAID, SELFPAY | END 2024-05-18 05:25 | PROVIDERS: Admitting Provider Nurse Practitioner Family; Emergency Provider Emergency Medicine; PCP Internal Medicine; Responsible Provider Internal Medicine Critical Care Medicine; Visit Provider Radiology Diagnostic Radiology | DX: R60.0 Localized edema (principal) | CPT/HCPCS: 93970 ==

== ENCOUNTER 2024-04-29 14:24 | Outpatient (BNV) | payer MEDICARE, MEDICAID, SELFPAY | END 2024-04-30 21:58 | PROVIDERS: Admitting Provider Nurse Practitioner Family; Emergency Provider Emergency Medicine; PCP Internal Medicine; Visit Provider Radiology Neuroradiology | DX: R91.8 Other nonspecific abnormal finding of lung field (principal) | CPT/HCPCS: 71045 ==

== ENCOUNTER 2024-04-29 14:24 | Outpatient (BNV) | payer MEDICARE, MEDICAID, SELFPAY | END 2024-05-05 09:10 | PROVIDERS: Admitting Provider Nurse Practitioner Family; Emergency Provider Emergency Medicine; PCP Internal Medicine; Responsible Provider Internal Medicine Critical Care Medicine; Visit Provider Radiology Diagnostic Radiology | DX: J18.9 Pneumonia, unspecified organism (principal) | CPT/HCPCS: 71045 ==

== ENCOUNTER → 2024-04-29 14:24 | Outpatient (BNV) | payer MEDICARE, MEDICAID, SELFPAY | PROVIDERS: Admitting Provider Nurse Practitioner Family; Emergency Provider Emergency Medicine; PCP Internal Medicine; Responsible Provider Internal Medicine Critical Care Medicine; Visit Provider Internal Medicine | DX: G72.81 Critical illness myopathy (principal); G93.40 Encephalopathy, unspecified; J69.0 Pneumonitis due to inhalation of food and vomit; J96.01 Acute respiratory failure with hypoxia | CPT/HCPCS: 99232; 99233; 99499 ==

== ENCOUNTER → 2024-04-29 14:24 | Outpatient (BNV) | payer MEDICARE, MEDICAID, SELFPAY | PROVIDERS: Admitting Provider Nurse Practitioner Family; Emergency Provider Emergency Medicine; PCP Internal Medicine; Visit Provider Registered Nurse Community Health | DX: N17.9 Acute kidney failure, unspecified (principal); F10.931 Alcohol use, unspecified with withdrawal delirium; E87.20 Acidosis, unspecified; J18.9 Pneumonia, unspecified organism; T17.900A Unspecified foreign body in respiratory tract, part unspecified causing asphyxiation, initial encounter; J96.01 Acute respiratory failure with hypoxia | CPT/HCPCS: 99291 ==

== ENCOUNTER → 2024-04-29 14:24 | Outpatient (BNV) | payer MEDICARE, MEDICAID, SELFPAY | PROVIDERS: Admitting Provider Nurse Practitioner Family; Emergency Provider Emergency Medicine; PCP Internal Medicine; Visit Provider Internal Medicine Pulmonary Disease | DX: F10.931 Alcohol use, unspecified with withdrawal delirium (principal); E87.21 Acute metabolic acidosis; E11.649 Type 2 diabetes mellitus with hypoglycemia without coma; N17.9 Acute kidney failure, unspecified; J96.01 Acute respiratory failure with hypoxia | CPT/HCPCS: 99291 ==

== ENCOUNTER → 2024-04-29 14:24 | Outpatient (BNV) | payer MEDICARE, MEDICAID, SELFPAY | PROVIDERS: Admitting Provider Nurse Practitioner Family; Emergency Provider Emergency Medicine; PCP Internal Medicine; Responsible Provider Internal Medicine Critical Care Medicine; Visit Provider Internal Medicine Hypertension Specialist | DX: N17.9 Acute kidney failure, unspecified (principal) | CPT/HCPCS: 99223; 99232 ==

== ENCOUNTER 2024-07-14 14:47 | Outpatient (AMB) | payer MEDICARE, MEDICAID, SELFPAY ==
[2024-07-14 14:48] VITALS: BP 72/46; PULSE 88; O2SAT 92; BMI 31.1
--- NOTE | 2024-07-14 14:48 | HO.NEPHOV ---
Vital Signs 07/14/24 14:48 Height 5 ft 11 in Weight 223 lb BMI 31.1 BP 72/46 L Blood Pressure Location Lt brachial Position Sitting Pulse 88 Pulse Source Pulse Oximeter Pulse Oximetry (%) 92 Oxygen Delivery Method Room Air Intake Visit Reasons: HFU/ LVM Intensive Care Unit Nurse Required: No Accompanied by: Sister Allergies No Known Allergies Allergy (Verified 07/14/24 14:50) Medication List - Last Reconciled 07/14/24 by Faisal Lima MD acamprosate 666 mg PO TID divalproex 500 mg PO TID fluticasone propion-salmeterol 250-50 mcg/dose 1 ea inhalation BID fluticasone propionate 50 mcg/actuation 1 spray intranasal DAILY insulin glargine (Lantus Solostar U-100 Insulin) 10 units subcut BEDTIME levothyroxine 200 mcg PO DAILY@0600 metoprolol succinate ER 100 mg PO DAILY mometasone 0.1% 1 appl topical DAILY montelukast 10 mg PO DAILY omeprazole 20 mg PO DAILY@0630 quetiapine 100 mg PO BEDTIME valproic acid (as sodium salt) 500 mg (10 mL) PO TID HPI Comments Details: 58-year-old male presenting with medication adjustment and follow-up for kidney function and blood pressure management. The patient has a history of chronic kidney disease, where kidney function plunged to 29% during a previous hospitalization. He has recently experienced significant fatigue and dizziness since returning home, potentially linked to low blood pressure noted at the same time. Amlodipine, part of his antihypertensive regimen, is suspected to contribute to hypotension, and its use is being reconsidered. Additionally, the patient is known to have diabetes mellitus and has been receiving treatment for alcohol use disorder. The management and progress of these conditions were acknowledged but were not elaborated upon in terms of specific therapeutic measures. It is crucial to monitor blood pressure and kidney function carefully due to their potential to worsen the patient's fatigue and overall condition. [facility] Medical History (Updated 07/14/24 @ 17:14 by Faisal Lima MD) Nasal septal defect ETOH abuse Throat cancer Surgical History H/O excision of mass Social History Household Members: None Housing: House Do you presently have visiting nurse or other home services: Yes Alcohol intake: current Alcohol intake frequency: 3 or more drinks per day Alcohol type: beer Comment: 1:1 sitter Patient Tobacco Use Status: Current everyday Tobacco user Tobacco use type: Cigarette e-Cigarette/Vaping Use: Never Used Second Hand Smoke Exposure: No service: No Physical Exam Vital Signs: Last Vital Signs Pulse 88 07/14/24 14:48 BP 72/46 L 07/14/24 14:48 Pulse Ox 92 07/14/24 14:48 Oxygen Delivery Method Room Air 07/14/24 14:48 BMI result Body Mass Index 31.1 Comfortable Neck supple no JVD. Lungs entry equal no rales. Heart S1-S2 heard no gallop or rub. Abdomen soft nontender. Neuro alert awake oriented. No asterixis. Extremities no edema. Results Reviewed Nephrology Results: No Data to Display Assessment & Plan Assessment & Plan (1) DARRELL (acute kidney injury): Comment: hypoperfusion/ATN- resolving Code(s): N17.9 - Acute kidney failure, unspecified Category: Medical Plan: Keep I > O Avoid nephrotoxins Rechk today (2) Hypotension: Code(s): I95.9 - Hypotension, unspecified Category: Medical Plan: DC Amlodipine 10 mg Orders: Orders Basic Metabolic Panel Today N17.9 - Acute kidney failure, unspecified Complete Blood Count no Diff Today N17.9 - Acute kidney failure, unspecified Coding Level of Care Code Est Pt Level 4 (49780) Diagnoses DARRELL (acute kidney injury) N17.9 Hypotension I95.9
--- OUTSIDE RECORDS SUMMARY | 2024-07-14 17:26 | XMS_ITS | Clinical Summary ---
Author Organization [facility] Address [address] [place] [address] Care Team Providers Care Medical Secretary Receptionist Name Role Phone Rita Fierro MD Primary Care Provide r Allergies No known active allergies Medications Medication Sig Dispensed Refills Start Date End Date Status metoprolol tartrate (LOPRESSOR) 100 MG tablet Take 1 tablet (100 mg total) by mouth daily. 0 Active omeprazole (PRILOSEC) 20 MG capsule Take 1 capsule (20 mg total) by mouth daily. 0 Active vitamin B-1 (THIAMINE) 100 MG tablet Take 1 tablet (100 mg total) by mouth daily. 0 Active FOLIC ACID PO Take 1 mg by mouth daily. 0 Active levothyroxine (SYNTHROID) tablet 175 mcg Take 50 mcg by mouth every morning on an empty stomach. 0 Active naltrexone (Vivitrol) 380 MG SUSR injection Inject 380 mg into the muscle once. 0 Active tamsulosin (FLOMAX) 0.4 MG CAPS Take 1 capsule (0.4 mg total) by mouth daily. 0 Active cloNIDine (CATAPRES) tablet 0.1 mg Take 1 tablet (0.1 mg total) by mouth 2 (two) times a day. 0 Active sertraline (ZOLOFT) 50 MG tablet Take 1 tablet (50 mg total) by mouth daily. 0 Active albuterol 108 (90 Base) MCG/ACT inhaler Inhale 2 puffs into the lungs every 6 (six) hours as needed for wheezing. 0 Active allopurinol (ZYLOPRIM) 100 MG tablet Take 1 tablet (100 mg total) by mouth daily. 0 Active mometasone (ELOCON) 0.1 % cream Apply topically daily. 0 Active predniSONE (DELTASONE) tablet 10 mg Take by mouth every morning with breakfast. 0 Active metFORMIN (GLUCOPHAGE) tablet 500 mg Take 1 tablet (500 mg total) by mouth 2 (two) times a day with meals. 0 Active Active Problems Problem Noted Date Diagnosed Date Squamous cell carcinoma of head and neck 017 Oral mucositis 02/04/2017 Family History Medical History Relation Name Comments Cancer Mother Cancer Sister 1 Cancer Sister 2 Relation Name Status Comments Mother Sister 1 Sister 2 Social History Tobacco Use Types Packs/Day Years Used Date Smoking Tobacco: Former Smokeless Tobacco: Never Alcohol Use Standard Drinks/Week Comments Yes 0 (1 standard drink = 0.6 oz pur e alcohol) Sex and Gender Information Value Date Recorded Sex Assigned at Not on file Gender Identity Not on file Sexual Orientation Not on file Job Start Date Occupation Industry Not on file Not on file Not on file Last Filed Vital Signs Vital Sign Reading Time Taken Comments Blood Pressure 168/83 03/18/2022 9:13 AM EST Pulse 96 03/18/2022 9:13 AM EST Temperature 36.5 ??C (97.7 ??F) 03/18/2022 9:13 AM ES T Respiratory Rate - - Oxygen Saturation 94% 03/18/2022 9:13 AM EST Inhaled Oxygen Concentration - - Weight 106.1 kg (234 lb) 03/18/2022 9:13 AM EST Height 180.3 cm (5' 11 ) 02/28/2019 10:13 AM EST Body Mass Index 32.64 02/28/2019 10:13 AM EST Plan of Treatment Health Maintenance Due Date Last Done Comments Hepatitis B Vaccines (1 of 3 - 3-dose series) 1964 Hepatitis C Screening 1964 Depression Screening 1976 Preventative Health Evaluation 1982 Colon Cancer Screening (Colonoscopy) 2009 Shingrix-Zoster Vaccine (2 of 2) 05/09/2015 03/14/2015 Pneumococcal Vaccine (2 of 2 - PCV) 03/22/2017 03/22/2016 DTap / Tdap / Td (2 - Tdap) 07/12/2020 07/12/2010 COVID-19 Vaccine ( - season) 2023 12/04/2020, 05/31/2020, 05/09/2020 Influenza Vaccine (Season Ended) 2024 11/30/2020, 12/15/2018, 12/25/2016, Additional history exists RSV Ped < 20 months Aged Out No longe r eligible based on patient's age to complete this topic Care Teams Medical Secretary Receptionist Relationship Specialty Start Date End Date Rita Fierro MD [address] [place] [address] [place] [address] PCP - General Internal Medicine 08/02/16
== END 2024-07-14 15:05 | disposition home or self-care (01) ==
LOC: HO.HKA 14:48
PROVIDERS: PCP Internal Medicine; Visit Provider Internal Medicine Hypertension Specialist
DX: N17.9 Acute kidney failure, unspecified (principal); I95.9 Hypotension, unspecified
CPT/HCPCS: 99214

== ENCOUNTER → 2024-07-14 14:47 | Outpatient (BNVA) | payer MEDICARE, MEDICAID, SELFPAY | PROVIDERS: PCP Internal Medicine; Visit Provider Internal Medicine Hypertension Specialist | DX: N17.9 Acute kidney failure, unspecified (principal); I95.9 Hypotension, unspecified | CPT/HCPCS: 99212 ==

== ENCOUNTER 2024-08-04 14:52 | Outpatient (AMB) | payer MEDICARE, MEDICAID, SELFPAY ==
--- NOTE | 2024-08-04 14:53 | HO.NEPHOV_ITS ---
Vital Signs 08/04/24 14:54 Height 5 ft 11 in Weight 216 lb BMI 30.1 BP 90/54 L Blood Pressure Location Rt brachial Position Sitting Pulse 74 Pulse Source Pulse Oximeter Pulse Oximetry (%) 95 Oxygen Delivery Method Room Air Intake Visit Reasons: FU/ Conf Sfdc Technical Architect Required: No Accompanied by: Self / Same As Patient Allergies No Known Allergies Allergy (Verified 08/04/24 14:55) Medication List - Last Reconciled 08/04/24 by Faisal Lima MD acamprosate 666 mg PO TID divalproex 500 mg PO TID fluticasone propion-salmeterol 250-50 mcg/dose 1 ea inhalation BID fluticasone propionate 50 mcg/actuation 1 spray intranasal DAILY insulin glargine (Lantus Solostar U-100 Insulin) 10 units subcut BEDTIME levothyroxine 200 mcg PO DAILY@0600 metoprolol succinate ER 100 mg PO DAILY mometasone 0.1% 1 appl topical DAILY montelukast 10 mg PO DAILY omeprazole 20 mg PO DAILY@0630 quetiapine 100 mg PO BEDTIME valproic acid (as sodium salt) 500 mg (10 mL) PO TID HPI Comments Details: 58-year-old male presenting with medication adjustment and follow-up for kidney function and blood pressure management. The patient has a history of chronic kidney disease, where kidney function plunged to 29% during a previous hospitalization. He has recently experienced significant fatigue and dizziness since returning home, potentially linked to low blood pressure noted at the same time. Amlodipine, part of his antihypertensive regimen, is suspected to contribute to hypotension, and its use is being reconsidered. Additionally, the patient is known to have diabetes mellitus and has been receiving treatment for alcohol use disorder. The management and progress of these conditions were acknowledged but were not elaborated upon in terms of specific therapeutic measures. It is crucial to monitor blood pressure and kidney function carefully due to their potential to worsen the patient's fatigue and overall condition. 08/04/24 Feels better Stopped Amlodipine BP at home was 116/70 by RN [facility] Medical History (Updated 07/14/24 @ 17:14 by Faisal Lima MD) Nasal septal defect ETOH abuse Throat cancer Surgical History H/O excision of mass Social History Household Members: None Housing: House Do you presently have visiting nurse or other home services: Yes Alcohol intake: current Alcohol intake frequency: 3 or more drinks per day Alcohol type: beer Comment: 1:1 sitter Patient Tobacco Use Status: Current everyday Tobacco user Tobacco use type: Cigarette e-Cigarette/Vaping Use: Never Used Second Hand Smoke Exposure: No service: No Physical Exam Vital Signs: Last Vital Signs Pulse 74 08/04/24 14:54 BP 90/54 L 08/04/24 14:54 Pulse Ox 95 08/04/24 14:54 Oxygen Delivery Method Room Air 08/04/24 14:54 BMI result Body Mass Index 30.1 Comfortable Neck supple no JVD. Lungs entry equal no rales. Heart S1-S2 heard no gallop or rub. Abdomen soft nontender. Neuro alert awake oriented. No asterixis. Extremities no edema. Assessment & Plan Assessment & Plan (1) DARRELL (acute kidney injury): Comment: hypoperfusion/ATN- resolving Code(s): N17.9 - Acute kidney failure, unspecified Category: Medical Plan: Keep I > O Avoid nephrotoxins Labs reordered (2) Hypotension: Code(s): I95.9 - Hypotension, unspecified Category: Medical Plan: Decrease Metoprolol to 50 mg QD Medications: Changed From metoprolol succinate ER 50 mg PO DAILY To metoprolol succinate ER 50 mg PO DAILY 30 tabs 2RF Coding Level of Care Code Est Pt Level 4 (78542) Diagnoses DARRELL (acute kidney injury) N17.9 Hypotension I95.9
[2024-08-04 14:54] VITALS: BP 90/54; PULSE 74; O2SAT 95; BMI 30.1
--- OUTSIDE RECORDS SUMMARY | 2024-08-04 18:03 | XMS_ITS | Clinical Summary ---
Author Organization [facility] Address [address] [place] [address] Care Team Providers Care Solderer Dipper Name Role Phone Rita Fierro MD Primary [...] 96 03/18/2022 9:13 AM EST Temperature 36.5 C (97.7 F) 03/18/2022 9:13 AM EST Respiratory Rate - - Oxygen Saturation 94% [...] age to complete this topic Care Teams Solderer Dipper Relationship Specialty Start Date End Date Rita Fierro MD [address] [place] [address] [place] [address] PCP - General Internal Medicine 08/02/16
== END 2024-08-04 15:06 | disposition home or self-care (01) ==
LOC: HO.HKA 14:53
PROVIDERS: Visit Provider Internal Medicine Hypertension Specialist
DX: N17.9 Acute kidney failure, unspecified (principal); I95.9 Hypotension, unspecified
CPT/HCPCS: 99214

== ENCOUNTER 2024-08-04 14:52 | Outpatient (REF) | payer MEDICARE, MEDICAID, SELFPAY ==
[2024-08-04 16:14] LABS: Hematocrit 31.6 % (42.0-52.0); Hemoglobin 10.3 g/dl (14.0-18.0); Mean Corpuscular HGB Conc 32.6 g/dl (31.0-36.0); Mean Corpuscular Hemoglobin 30.8 pg (27.0-33.0); Mean Corpuscular Volume 94.6 fL (80.0-98.0); Mean Platelet Volume 9.8 fL (9.4-12.4); Platelet Count 378 X10*3/uL (160-400); Red Blood Count 3.34 X10*6/uL (4.60-5.80); Red Cell Distribution Width 13.5 % (11.0-16.0); White Blood Count 9.9 X10*3/uL (4.8-10.8)
[2024-08-04 16:38] LABS: Anion Gap 13 (12-20); Blood Urea Nitrogen 36 mg/dL (9-16); Carbon Dioxide 23 mmol/L (22-29); Chloride 107 mmol/L (96-108); Estimated Glomerular Filt Rate 44; Glucose Random 99 mg/dL (60-115); Potassium 4.3 mmol/L (3.3-5.1); Sodium 139 mmol/L (135-145)
== END 2024-08-04 14:53 | disposition home or self-care (01) ==
LOC: HO.LAB 14:52
PROVIDERS: Visit Provider Internal Medicine Hypertension Specialist
DX: N17.9 Acute kidney failure, unspecified (principal); I95.9 Hypotension, unspecified
CPT/HCPCS: 36415; 80048; 85027; 99212

== ENCOUNTER 2024-08-29 11:29 | Outpatient (AMB) | payer MEDICARE, MEDICAID, SELFPAY ==
[2024-08-29 11:31] VITALS: BP 98/62; PULSE 70; O2SAT 96; BMI 29.8
--- NOTE | 2024-08-29 11:31 | A.OFFVIS_ITS ---
Vital Signs 08/29/24 11:31 Height 5 ft 11 in Weight 213 lb 13.574 oz BMI 29.8 BP 98/62 Blood Pressure Location Rt brachial Position Sitting Pulse 70 Pulse Source Pulse Oximeter Pulse Oximetry (%) 96 Oxygen Delivery Method Room Air Intake Visit Reasons: Type 2 diabetes mellitus without complications Intake Note: New patient present today for Type 2 Diabetes Mellitus Last Diabetic eye exam: Has an appt coming up Last Podiatry Visit: Has an appt coming up to see DR Esthela Covington Random Glucose: 188 mg/dl HgA1C: 6.7%, 08/29/2024 Phone Manager Required: No Accompanied by: Self / Same As Patient Allergies No Known Allergies Allergy (Verified 08/29/24 11:42) Medication List - Last Reconciled 08/29/24 by Soraida Lozano PA-C acamprosate 666 mg PO TID blood sugar diagnostic (FreeStyle Lite Strips) test blood sugar one time blood-glucose sensor (Dentalink G7 Sensor device) Use daily As directed clonidine HCl 0.1 mg PO BEDTIME empagliflozin (Jardiance) 10 mg PO DAILY fluticasone propion-salmeterol 250-50 mcg/dose 1 ea inhalation BID fluticasone propionate 50 mcg/actuation 1 spray intranasal DAILY folic acid 1 mg PO DAILY insulin glargine (Lantus Solostar U-100 Insulin) 10 units subcut BEDTIME levothyroxine 200 mcg PO DAILY@0600 metformin 500 mg PO BID metoprolol succinate ER 100 mg (2 x 50 mg) PO DAILY mometasone 0.1% 1 appl topical DAILY montelukast 10 mg PO DAILY montelukast (Singulair) 10 mg PO DAILY omeprazole 20 mg PO DAILY@0630 pregabalin 75 mg PO BID sertraline 100 mg PO DAILY tamsulosin (Flomax) 0.4 mg PO BEDTIME HPI HPI Type 2 diabetes mellitus without complications: Details: Patient is a 58-year-old male with a significant past medical history of hypotension, htn, anxiety, depression, alcohol abuse (currently sober), asthma, CKD with recent DARRELL, GERD, hypothyroidism, HLD, CAD, possible pulmonary hypertension and diabetes presenting today for initial visit regarding diabetes. He is somewhat of a poor historian in his here today by himself. His sister has been helping him a lot with medications/life. He states she has him on a better diet. He has been sober since hospitalization. He did have a recent complicated ICU stay in April 2024 from alcohol withdrawal, delirium tremens, hyperglycemia, DARRELL, aspiration pneumonia and encephalitis. He has followed with his transplant worker. He does not currently have a primary care doctor. He states his insurance changed. Endo: States that he was diagnosed with diabetes in 2022. His most recent A1c is 6.7. He is currently being managed with Lantus 10 units at night, metformin 500 mg bid, jardiance 10 mg, glimerperide 4 mg daily CGM- Dexcom review 1% very high, 25% high, 73% in range, 1% low. hypoglycemia- He states he is getting low blood sugars in the afternoon and evening. His lowest has been 60-70. He treats it with orange juice or glucose tabs. He states that the hypoglycemic events are almost daily. He is unable to tell me a number but states he really feels it around 70. He was following with [facility] endocrinology at initial dx of dm but has not been seen in over 1 year per patient. I do not have any records of this.. Vasc: He has a left diabetic foot ulcer now. He states he has been struggling with this ulcer for about a year and it got better after wound care/following with vascular surgery in February. It has been leaking and painful x 1 month. He states that he has had vna services helping him manage the wound. He does not think that it is getting significantly better. He is unable to follow up with [facility] right now due to insurance. CV: Blood pressure today in the office is 98/62. He is currently on metoprolol 100 mg daily. The chart says that he is on 50 but he brought in a medication list today that shows me he has been taking 100 mg daily with losartan/hydrochlorothiazide 50/12.5 mg. Not on a statin. States that this was d/c'd due to labs but unsure why. I tells me has a history of plaque on the heart and states that he used to follow up with Cardiology but this was a few years ago. He does intermittently get chest discomfort which she describes as a heaviness. No current chest pain or shortness on breath. Has not had this in a couple of weeks. [facility] Medical History (Updated 08/29/24 @ 12:52 by Soraida Lozano PA-C) Nasal septal defect ETOH abuse Throat cancer Surgical History H/O excision of mass Family History Father No problems noted. Mother No problems noted. Social History Household Members: None Housing: House Do you presently have visiting nurse or other home services: Yes Alcohol intake: current Alcohol intake frequency: 3 or more drinks per day Alcohol type: beer Comment: 1:1 sitter Patient Tobacco Use Status: Current everyday Tobacco user Tobacco use type: Cigarette e-Cigarette/Vaping Use: Never Used Second Hand Smoke Exposure: No service: No Physical Exam Const Orientation/consciousness: patient oriented x3 HEENT Ears: hearing grossly normal bilaterally Neck Neck: Yes no lymphadenopathy Thyroid: Thyroid normal Carotids: no bruits Lymphatic: no lymphadenopathy noted Resp Auscultation: clear to auscultation bilaterally Cardio Rate: regular rate Rhythm: regular rhythm Heart sounds: S1 normal heart sound present, S2 normal heart sound present and Murmur heart sound present Peripheral pulses: dorsalis pedis present Skin General skin exam: no rashes or lesions noted Neuro General: patient oriented x3, gait normal and no focal motor deficits Extrem Other: Monofilament sensation intact bilaterally. Vibratory sensation intact bilaterally. There is a 3 cm x 3-1/2 cm ulcer on the plantar aspect of the left foot. There does appear to be a center pit that extends deeper into the tissue in appears to be tunneling General: Yes normal to inspection Results AMB Hemoglobin A1c AMB Hemoglobin A1c 6.7 % Last Edit by ERIKA Dove on 08/29/24 11:48 Results Reviewed Results Reviewed: Laboratory Tests 08/04/24 15:21 Sodium 139 Potassium 4.3 Chloride 107 Carbon Dioxide 23 Anion Gap 13 BUN 36 H Creatinine 1.60 H Estimated GFR 44 Random Glucose [address] IMPRESSION: 1. Small bilateral pleural effusions with overlying complete atelectatic collapse of the lower lobes bilaterally. 2. Cardiomegaly with coronary artery atherosclerosis. Enlarged main pulmonary artery can be associated with pulmonary hypertension. EKG Sinus tachycardia with Fusion complexes Inferior infarct (cited on or before 29-Apr-2024) Abnormal ECG When compared with ECG of 25-May-2024 21:19, Fusion complexes are now Present Assessment & Plan Assessment & Plan (1) Insulin dependent type 2 diabetes mellitus, controlled: Code(s): E11.9 - Type 2 diabetes mellitus without complications; Z79.4 - skilled nursing (current) use of insulin Category: Medical Plan: As below (2) Diabetic nephropathy: Code(s): E11.21 - Type 2 diabetes mellitus with diabetic nephropathy Category: Medical Plan: I spent approximately 80 minutes in [id number] time and reviewing his chart and reconciling his medications today We will monitor He will continue Jardiance 10 mg, metformin 500 mg twice a day, Lantus 10 units at night We will discontinue glimepiride due to intermittent hypoglycemia Glucose tabs ordered. Reviewed rule of 15 at length. He has back up testing supplies and a CGM that he is comfortable using. Labs ordered to be completed prior to her next appointment. (3) HTN (hypertension): Code(s): I10 - Essential (primary) hypertension Category: Medical Plan: Advised to hold the losartan and hydrochlorothiazide at this time. I wrote this on his hard copy of his medication list and I typed out patient instructions. I will have him return in 2 weeks to be reassessed. (4) HLD (hyperlipidemia): Code(s): E78.5 - Hyperlipidemia, unspecified Category: Medical Plan: Not currently on a statin. I will check lipids (5) Diabetic ulcer of left foot associated with diabetes mellitus due to underlying condition: Code(s): E08.621 - Diabetes mellitus due to underlying condition with foot ulcer; L97.529 - Non-pressure chronic ulcer of other part of left foot with unspecified severity Category: Medical Plan: Referral to vascular surgery Referral to podiatry (6) CAD (coronary artery disease): Code(s): I25.10 - Atherosclerotic heart disease of [place] coronary artery without angina pectoris Category: Medical Plan: Reviewed hospitalization and imaging and given his intermittent chest pain I have referred him to Cardiology. Discussed that he needs to see a primary care doctor TONI Message sent to nurse navigator to try to facilitate this. (7) Pulmonary HTN: Code(s): I27.20 - Pulmonary hypertension, unspecified Category: Medical Plan: As above (8) Chest pain: Code(s): R07.9 - Chest pain, unspecified Plan: Currently asymptomatic. Reviewed warning signs of chest pain that would require emergent medical treatment. Patient would go to the ER in call 911 should any of the symptoms arise. Patient understands and agrees with this plan. Orders: Orders AMB Hemoglobin A1c Today E11.9 - Type 2 diabetes mellitus without complications Comprehensive [place]. Panel Fast Today E08.621 - Diabetes mellitus due to underlying condition with foot ulcer, E11.9 - Type 2 diabetes mellitus without complications, E78.5 - Hyperlipidemia, unspecified, I10 - Essential (primary) hypertension, L97.529 - Non-pressure chronic ulcer of other part of left foot with unspecified severity, Z79.4 - skilled nursing (current) use of insulin Lipid Panel Today E08.621 - Diabetes mellitus due to underlying condition with foot ulcer, E11.9 - Type 2 diabetes mellitus without complications, E78.5 - Hyperlipidemia, unspecified, I10 - Essential (primary) hypertension, L97.529 - Non-pressure chronic ulcer of other part of left foot with unspecified severity, Z79.4 - skilled nursing (current) use of insulin Islet Cell Antibody Scrn/Titer Today E08.621 - Diabetes mellitus due to underlying condition with foot ulcer, E11.9 - Type 2 diabetes mellitus without complications, E78.5 - Hyperlipidemia, unspecified, I10 - Essential (primary) hypertension, L97.529 - Non-pressure chronic ulcer of other part of left foot with unspecified severity, Z79.4 - intermediate manager (current) use of insulin Glutamic acid decarboxylase Ab Today E08.621 - Diabetes mellitus due to underlying condition with foot ulcer, E11.9 - Type 2 diabetes mellitus without complications, E78.5 - Hyperlipidemia, unspecified, I10 - Essential (primary) hypertension, L97.529 - Non-pressure chronic ulcer of other part of left foot with unspecified severity, Z79.4 - intermediate manager (current) use of insulin B Type Natriuretic Peptide Today E08.621 - Diabetes mellitus due to underlying condition with foot ulcer, E11.9 - Type 2 diabetes mellitus without complications, E78.5 - Hyperlipidemia, unspecified, I10 - Essential (primary) hypertension, L97.529 - Non-pressure chronic ulcer of other part of left foot with unspecified severity, Z79.4 - skilled nursing (current) use of insulin Microalbumin, Random (w Creat) Today E08.621 - Diabetes mellitus due to underlying condition with foot ulcer, E11.9 - Type 2 diabetes mellitus without complications, E78.5 - Hyperlipidemia, unspecified, I10 - Essential (primary) hypertension, L97.529 - Non-pressure chronic ulcer of other part of left foot w ith unspecified severity, Z79.4 - intermediate manager (current) use of insulin C Peptide Today E08.621 - Diabetes mellitus due to underlying condition with foot ulcer, E11.9 - Type 2 diabetes mellitus without complications, E78.5 - Hyperlipidemia, unspecified, I10 - Essential (primary) hypertension, L97.529 - Non-pressure chronic ulcer of other part of left foot with unspecified severity, Z79.4 - intermediate manager (current) use of insulin Referrals Podiatry Referral E08.621 - Diabetes mellitus due to underlying condition with foot ulcer, L97.529 - Non-pressure chronic ulcer of other part of left foot with unspecified severity Cardiology Referral E78.5 - Hyperlipidemia, unspecified, I10 - Essential (primary) hypertension, I25.10 - Atherosclerotic heart disease of [place] coronary artery without angina pectoris, I27.20 - Pulmonary hypertension, unspecified, R07.9 - Chest pain, unspecified Vascular Surgery Referral E08.621 - Diabetes mellitus due to underlying condition with foot ulcer, L97.529 - Non-pressure chronic ulcer of other part of left foot with unspecified severity Medications: New metformin 500 mg PO BID 180 tabs 2RF empagliflozin (Jardiance) 10 mg PO DAILY 90 tabs 3RF blood-glucose sensor (Dexcom G7 Sensor device) Use daily As directed 3 ea 5RF diabetes mellitus E11.21 - Type 2 diabetes mellitus with diabetic nephropathy, E11.9 - Type 2 diabetes mellitus without complications, Z79.4 - skilled nursing (current) use of insulin Changed From metoprolol succinate ER 50 mg PO DAILY 30 tabs 2RF To metoprolol succinate ER 100 mg (2 x 50 mg) PO DAILY 30 tabs 2RF Patient Instructions: you are to stop the losartan/hctz continue with the metprolol dosing 100 mg that you have been taking stop the glimepiride get labs done this week return for follow up in 2 weeks- bring all of medications with you Coding Level of Care Code New Pt Level 5 (92365) Complex EM visit Add On G2211 Diagnoses Insulin dependent type 2 diabetes mellitus, controlled E11.9; Z79.4 Diabetic nephropathy E11.21 HTN (hypertension) I10 HLD (hyperlipidemia) E78.5 Diabetic ulcer of left foot associated with diabetes mellitus due to underlying condition E08.621; L97.529 CAD (coronary artery disease) I25.10 Pulmonary HTN I27.20 Chest pain R07.9
[2024-08-29 11:41] LABS: Glucose, Whole Blood 188 mg/dL (60-115)
--- OUTSIDE RECORDS SUMMARY | 2024-08-29 12:37 | XMS_ITS | Encounter Summary ---
Author Organization [facility] Address [address] [place] [id number] Care Team Providers Care Machine Ceramic Coater Name Role Phone Rita Fierro MD Primary Care Provide r Encounter Details Date Type Department Care Team (Late st Contact Info) Description 06/08/2024 Lab Requisition [facility] - Main Lab [address] [facility] [place] [address] Krishan Sotelo MD [address] [place] [address] [address] [place], [phone] Type 2 diabetes mellitus without complications (CMS/HCC V24, CMS/HCC V28) Social History Tobacco Use Types Packs/Day Years Used Date Smoking Tobacco: Former Smokeless Tobacco: Never Alcohol Use Standard Drinks/Week Comments Yes 0 (1 standard drink = 0.6 oz pur e alcohol) Sex and Gender Information Value Date Recorded Sex Assigned at Not on file Legal Sex Male 1:38 PM EST Gender Identity Not on file Sexual Orientation Not on file documented as of this encounter Plan of Treatment Not on file documented as of this encounter Procedures Procedure Name Priority Date/Time Associated Diagnosis Comments HEMOGLOBIN A1C Routine 06/08/2024 7:34 AM EDT Type 2 diabetes mellitus without complications (CMS/HCC V24, CMS/[facility] V28) documented in this encounter Results * (ABNORMAL) Hemoglobin A1c (06/08/2024 7:34 AM EDT) Hemoglobin A1C 7.1(H) <6.5 % LAB CHEMISTRY METHOD 06/08/2024 12:47 PM EDT [facility] Mean Bld Glu Estim. 157 mg/dL LAB CHEMISTRY METHOD 06/08/2024 12:[address] [facility] Blood Venous blood specimen / Unknown Venipuncture / Unknown 06/08/2024 7:34 AM EDT 06/08/2024 10:04 AM EDT us Krishna Sotelo MD LAB BLOOD ORDERABLES Final Resul t [facility] [address] [place] [address], documented in this encounter Visit Diagnoses Diagnosis Type 2 diabetes mellitus without complications (CMS/HCC V24, CMS/HCC V28) documented in this encounter Care Teams Machine Ceramic Coater Relationship Specialty Start Date End Date Rita Fierro MD [address] [place] [address] [place] PCP - General Internal Medicine 08/02/16 documented as of this encounter
--- OUTSIDE RECORDS SUMMARY | 2024-08-29 12:37 | XMS_ITS | Clinical Summary ---
Author Organization [employer] Address [address] [place] [address] Care Team Providers Care Major General Name Role Phone Unavailable Primary Care Provider Unavailabl e Encounters Date Type Department Care Team Description 07/25/2024 Telephone [facility] [address] [place] [address] Julián Pineda MD [facility] - New Patient Assistance from Last 3 Months Social History Tobacco Use Types Packs/Day Years Used Date Smoking Tobacco: Never Assessed Sex and Gender Information Value Date Recorded Sex Assigned at Male 12/09/2021 10:27 AM EDT Legal Sex Male 10:27 AM EDT Gender Identity Not on file Sexual Orientation Not on file Plan of Treatment Health Maintenance Due Date Last Done Comments CT Colonography 1964 Colonoscopy 1964 Colorectal Cancer Screening 1964 Depression Screening 1964 FIT DNA/Cologuard 1964 FIT 1964 FOBT 1964 HIV Screening 1964 Lipid Panel 1964 SDOH Screening 1964 Sigmoidoscopy 1964 Disability Screening 1964 Alcohol/Substance Use Screening 1976 Tobacco Screening 1976 Hepatitis C Screening 1982 Hepatitis B Vaccines (1 of 3 - 19+ 3-dose series) 09/14/1983 Zoster Vaccines (1 of 2) 2014 Pneumococcal Vaccine: 50+ Years (2 of 2 - PCV) 03/22/2017 03/22/2016 DTaP/Tdap/Td Vaccines (2 - Tdap) 07/12/2020 07/12/2010 COVID-19 Vaccine ( season) 2023 12/04/2020, 05/31/2020, 05/09/2020 Influenza Vaccine (#1) 2024 , 12/15/2018, 11/11/2017, Additional history exists RSV Patients and Patients Aged 60 years or older (1 - 1-dose 75+ series) 09/14/2039 HIB Vaccines Aged Out No longer eligi ble based on patient's age to complete this topic HPV Vaccines Aged Out No longer eligi ble based on patient's age to complete this topic Hepatitis A Vaccines Aged Out No long er eligible based on patient's age to complete this topic IPV Vaccines Aged Out No longer eligi ble based on patient's age to complete this topic Meningococcal B Vaccine Aged Out No l onger eligible based on patient's age to complete this topic Meningococcal Vaccine Aged Out No domonique concetta eligible based on patient's age to complete this topic RSV under 20 months Aged Out No longe r eligible based on patient's age to complete this topic Rotavirus Vaccines Aged Out No longer eligible based on patient's age to complete this topic Insurance [facility] MEDICARE ADVANTAGE
--- OUTSIDE RECORDS SUMMARY | 2024-08-29 12:37 | XMS_ITS | Clinical Summary ---
Author Organization [facility] Address [address] [place] [address] Care Team Providers Care Work Distributor Name Role Phone Rita Fierro MD Primary [...] (2 - Tdap) 07/12/2020 07/12/2010 COVID-19 Vaccine (4 - season) 2023 12/04/2020, 05/31/2020, 05/09/2020 Influenza Vaccine (#1) 2024 , 12/15/2018, 12/25/2016, Additional history exists RSV Ped < 20 months Aged Out No longe r eligible based on patient's age to complete this topic Care Teams Work Distributor Relationship Specialty Start Date End Date Rita Fierro MD [address] [place] [address] [place] [id number] PCP - General Internal Medicine 08/02/16
--- OUTSIDE RECORDS SUMMARY | 2024-08-29 12:37 | XMS_ITS | Data Portability ---
Author Organization [employer] [facility], [place] [employer] [facility] Address [address] [place] [address] Care Team Providers Care Patient Services Representative Name Role Phone [facility] Referring Provider [phone] Assessment Encounter Date Assessment Date Assessment LastModified by Organization Details LastModified Time 11/08/2021 11/08/2021 Mr. Romaine Longoria i s a 56yoM w/ a PmH of CKD3, HTN, prostate CA, MDD who is seen today for shortness of breath. Mr. Longoria reports that 13 days ago he had an episode of left sided substernal chest pain that self-resolved. Since that episode, he reports that he has had a 10lb weight gain with new pitting edema in his legs that extends up to his groin. He endorses dyspnea on exertion and but denies any fevers, recurrent chest pain, nausea/vomiting, jaw/arm pain. He tried to make an appointment with his PCP, but was unable to get a sick visit, then tried to go to the ED yesterday, but left after a four hour ED wait time. VSS. Senior Logistics Manager on site reports that he has tense pitting edema to the b/l legs. Clear breath sounds b/l. No obvious, overt murmurs. EKG with TWI in lead III, no reciprocal changes. Will check CMP and anticipate diuresis with 20mg IV lasix. He has no acute symptoms that would require immediate ED attention, but will require close follow up in the next few days. Red flag symptoms explicitly discussed. CMP notable for a Cr of 1.2 but otherwise unremarkable. He is given 20mg IV lasix and advised to call his PCP on Thursday for an appointment. Primary team, Mr. Longoria would benefit from urgent in-person follow up this week and echocardiogram for evaluation after an episode of chest pain and new signs of heart failure. [email or web address] Not available 11/08/2021 15:39:01 02/25/2022 02/25/2022 56 y/o male with PMH significant for DM 2, HF, COPD, h/o alcohol abuse, nicotine dependence, GERD, depression, anxiety, and tumor of neck (followed by Dr. Allred). Romaine reports since Thursday02/21/22 he has had chills, aches, congestion, sinus pressure, fatigue, dizziness and nausea. S/S come and go. Upon presentation with the physical therapy attendant he was found to have an O2 sat on room air of 87% and was visibly short of breath with good air movement. Rapid COVID and flu were negative. Nasal cannula was applied at 2 L with increased ends O2 sats into the high 90s. Patient does not wear oxygen at home. He does have a nasal discharge that is green in make nature but does not have a productive cough. Given new onset hypoxia in the setting of heart failure and COPD with new chills and congestion we elected to send the patient to the emergency department for chest x-ray and further diagnostic workup. Presentation concerning for pneumonia if COVID testing remains negative. Patient participated in shared decision making to go to the emergency department as his preference given hypoxia. [email or web address] Not available 02/25/2022 13:59:26 04/23/2022 04/23/2022 I have reviewed and agree with the Assessment and Plan as documented by the Senior Logistics Manager. I provided real-time medical direction via phone for this encounter, and was available for additional phone based assistance as needed. Patient seen for 2 days of worsening BLE swelling and orthopnea. Stasis dermatitis appreciated in BLE. AVSS otherwise and well appearing. Labs w/ no major abnomalities. Has PCP follow up next week. ECG w/ no e/o stemi and no CP on history. WIll need comprehensive HF eval but in mean time given desire to avoid the ED will rx short course of diuresis. Red flags for callback or ED presentation discussed. [email or web address] Not available 07/24/2022 14:52:25 Plan of Treatment Reminders Order Date Submit Date Provider Last Modified By Organization Details Last Modified Time Details Appointments None recorded. Lab rapid flu (A+B) 2022 023 [email or web address] [facility], [address] [place] [address], [phone] 17:54:47 rapid SARS CoV 2 Ag, QL IA, respiratory specimen 2022 023 [email or web address] [address] [place] [address], [phone] 3 17:54:47 Referral None recorded. Procedures None recorded. Surgeries None recorded. Imaging None recorded. Medication Orders furosemide 20 mg tablet 2022 023 [id number], [address] [place], [address], 3 15:12:40 Patient TargetsNo targets recorded. Patient InstructionsNo instructions recorded. Reason for Referral None Reported. Results Created Date Observation Date Name Description Value Unit Range Abnormal Flag Note LastModifiedBy Organization Detail LastModifiedTime 02/25/1902/25/2022 rapid SARS CoV 2 Ag, QL IA, respi rator y speci men rapid SARS CoV 2 Ag, QL IA, respiratory specimen negati ve Not Available [facility] [address] [place] [address], [phone] 02/25/2022 13:55:18 02/25/19 23 02/25/2022 rapid flu (A+B) Flu negati ve Not Available [facility] [address] [place] [address], [phone] 02/25/2022 13:55:16 Result Notes None recorded. Medical Equipment None Reported. Medications Name Sig Start Date Stop Date Status Note LastModified by Organization Details LastModified Time metformin 500 mg tablet TAKE 1 TABLET BY MOUTH TWICE A DAY active Not Available Not Available No t Available levothyroxine 175 mcg tablet TAKE 1 TABLET BY MOUTH EVERY DAY active Not Available Not Available No t Available levothyroxine 137 mcg tablet TAKE 1 TABLET BY MOUTH EVERY DAY active Not Available Not Available No t Available fluticasone 250 mcg-salmeterol 50 mcg/dose blistr powdr for inhalation active Not Available Not Availab le Not Available clonidine HCl 0.1 mg tablet TAKE 1 TABLET BY MOUTH TWICE A DAY active Not Available Not Available No t Available prednisone 10 mg tablet TAKE 3 TABS DAILY X3 DAYS, 2 TABS DAILY X3 DAYS, 1 TAB DAILY X3 DAYS active Not Available Not Available No t Available doxycycline hyclate 100 mg capsule TAKE 1 CAPSULE BY MOUTH TWICE A DAY active Not Available Not Available No t Available sildenafil 50 mg tablet TAKE 1 TO 2 TABLETS BY MOUTH 1 HOUR PRIOR TO ACTIVITY. DO NOT EXCEED MORE THAN 1 DOSE IN 48 HOURS active Not Available Not Available No t Available nicotine (polacrilex) 2 mg gum CHEW 1 PIECE EVERY 1 TO 2 HOURS. DO NOT EXCEED 24 PCS/24 HRS NO FOOD/DRIN K 15 MINS BEFORE OR DURING active Not Available Not Available No t Available metoprolol succinate ER 50 mg tablet,extende d release 24 hr TAKE 1 TABLET BY MOUTH EVERY DAY active Not Available Not Available No t Available naltrexone 50 mg tablet TAKE 1 TABLET BY MOUTH EVERY DAY active Not Available Not Available No t Available FreeStyle Lancets 28 gauge USE DIRECTED FOR TYPE 2 DIABETES MELLITUS CHECK ONCE DAILY active Not Available Not Available No t Available betamethasone, augmented 0.05 % topical cream active Not Available Not Available Not Available metoprolol succinate ER 100 mg tablet,extende d release 24 hr TAKE 1 TABLET BY MOUTH DAILY active Not Available Not Available No t Available sertraline 100 mg tablet TAKE 1 TABLET BY MOUTH EVERY DAY active Not Available Not Available No t Available thiamine HCl (vitamin B1) 100 mg tablet TAKE 1 TABLET BY MOUTH EVERY DAY active Not Available Not Available No t Available allopurinol 100 mg tablet TAKE 1 TABLET BY MOUTH EVERY DAY active Not Available Not Available No t Available Nicotrol 10 mg inhalation cartridge active Not Available Not Available No t Available glimepiride 2 mg tablet TAKE 1 TABLET BY MOUTH EVERY DAY active Not Available Not Available No t Available tamsulosin 0.4 mg capsule TAKE 1 CAPSULE BY MOUTH EVERY DAY active Not Available Not Available No t Available baclofen 10 mg tablet TAKE 1 TABLET BY MOUTH THREE TIMES DAILY NEEDED FOR CRAVINGS active Not Available Not Available No t Available amlodipine 10 mg tablet TAKE 1 TABLET BY MOUTH EVERY DAY active Not Available Not Available No t Available glimepiride 4 mg tablet active Not Available Not Available No t Available levothyroxine 150 mcg tablet TAKE 1 TABLET BY MOUTH EVERY DAY active Not Available Not Available No t Available nicotine 21 mg/24 hr daily transdermal patch APPLY 1 PATCH ON SKIN DAILY active Not Available Not Available No t Available omeprazole 20 mg capsule,delaye d release TAKE 1 CAPSULE BY MOUTH DAILY BEFORE EATING. active Not Available Not Available No t Available folic acid 1 mg tablet TAKE 1 TABLET BY MOUTH EVERY DAY active Not Available Not Available No t Available furosemide 20 mg tablet TAKE 1 TABLET BY MOUTH EVERY DAY FOR 10 DAYS active Not Available Not Available No t Available lisinopril 10 mg-hydrochloro thiazide 12.5 mg tablet active Not Available Not Available No t Available albuterol sulfate HFA 90 mcg/actuation aerosol inhaler TAKE 2 PUFFS EVERY 4 HOURS NEEDED FOR WHEEZING X 30 DAYS active Not Available Not Available No t Available losartan 50 mg-hydrochloro thiazide 12.5 mg tablet TAKE 1 TABLET BY MOUTH EVERY DAY active Not Available Not Available No t Available colchicine 0.6 mg tablet TAKE 1 TABLET BY MOUTH TWICE A DAY FOR 7 DAYS active Not Available Not Available No t Available fluticasone propionate 50 mcg/actuation nasal spray,suspensi on SPRAY 1 SPRAY INTO EACH NOSTRIL TWICE A DAY FOR 30 DAYS active Not Available Not Available No t Available mometasone 0.1 % topical cream APPLY TO AFFECTED AREA EVERY DAY active Not Available Not Available No t Available tadalafil 20 mg tablet USE DIRECTED 45 MINUTES BEFORE SEXUAL ACTIVITY BY MOUTH active Not Available Not Available No t Available acamprosate 333 mg tablet,delayed release TAKE 1 TABLET BY MOUTH 3 TIMES A DAY DIRECTED. HOLD FOR LOOSE STOOL. active Not Available Not Available No t Available pregabalin 75 mg capsule TAKE 1 CAPSULE BY MOUTH TWICE A DAY active Not Available Not Available No t Available Vivitrol 380 mg intramuscular suspension,ext ended release INJECT 1ML IN THE MUSCLE ONCE A MONTH active Not Available Not Available No t Available FreeStyle Lite Meter kit USE DIRECTED FOR TYPE 2 DIABETES MELLITUS active Not Available Not Available No t Available FreeStyle Lite Strips USE DIRECTED FOR TYPE 2 DIABETES MELLITUS CHECK ONCE DAILY active Not Available Not Available No t Available Narcan 4 mg/actuation nasal spray USE 1 SPRAY IN THE NOSE DIRECTED active Not Available Not Available No t Available baclofen 5 mg tablet TAKE 1 TABLET BY MOUTH EVERY DAY DIRECTED active Not Available Not Available No t Available Daily-Oziel (with folic acid) 400 mcg tablet TAKE 1 TABLET BY MOUTH EVERY DAY active Not Available Not Available No t Available Vitals Date Recorded Respiratory rate Body temperature Heart rate Oxygen saturation Oxygen saturation in Arterial blood by Pulse oximetry Systolic And Diastolic Provider Name and Address Organization Details Last Updated DateTime 3 20 /min 98.2 [degF] 84 /min 87 % 87 % 95/61 mm[Hg] Not Available [employer] [employer] 3 13:53:54 Date Recorded Body temperature Body weight Respiratory rate Oxygen saturation Oxygen saturation in Arterial blood by Pulse oximetry Heart rate Heart rate Respiratory rate Body temperature Oxygen saturation Oxygen saturation in Arterial blood by Pulse oximetry Body weight Provider Name and Address Organization Details Last Updated DateTime 3 98.1 [degF] 674286. 16 g 16 /min 93 % 93 % 86 /min 86 /min 16 /min 98.1 [degF] 93 % 93 % 765556. 16 g Not Available [facility] 3 15:31:07 Date Recorded Systolic And Diastolic Systolic And Diastolic Provider Name and Address Organization Details Last Updated DateTime 04/23/2022 139/87 mm[Hg] 139/87 mm[Hg] Not Available [employer] 04/23/2022 15:31:07 Date Recorded Body weight Respiratory rate Oxygen saturation Oxygen saturation in Arterial blood by Pulse oximetry Body temperature Heart rate Body temperature Heart rate Body weight Respiratory rate Oxygen saturation Oxygen saturation in Arterial blood by Pulse oximetry Provider Name and Address Organization Details Last Updated DateTime 3 127591. 08 g 14 /min 96 % 96 % 97.5 [degF] 75 /min 97.5 [degF] 75 /min 007695. 08 g 14 /min 96 % 96 % Not Available [employer] 3 17:28:39 Date Recorded Systolic And Diastolic Systolic And Diastolic Provider Name and Address Organization Details Last Updated DateTime 06/25/2022 141/78 mm[Hg] 141/78 mm[Hg] Not Available [employer] 06/25/2022 17:28:39 Date Recorded Body temperature Heart rate Oxygen saturation Oxygen saturation in Arterial blood by Pulse oximetry Respiratory rate Heart rate Body temperature Oxygen saturation Oxygen saturation in Arterial blood by Pulse oximetry Respiratory rate Systolic And Diastolic Systolic And Diastolic Provider Name and Address Organization Details Last Updated DateTime 2 99.1 [degF] 98 /min 96 % 96 % 18 /min 98 /min 99.1 [degF] 96 % 96 % 18 /min 155/77 mm[Hg] 155/77 mm[Hg] Not Available [facility] 2 14:34:47 Date Recorded Respiratory rate Heart rate Oxygen saturation Oxygen saturation in Arterial blood by Pulse oximetry Systolic And Diastolic Provider Name and Address Organization Details Last Updated DateTime 18 /min 86 /min 95 % 95 % 129/58 mm[Hg] Not Available [facility] [employer] 18:28:42 Social History None recorded. Functional Status None recorded. Mental Status None recorded. Family History Nothing Reported. Medical History No medical history recorded. Past Encounters Encounter ID Performer Location Encounter Start Date Encounter Closed Date Diagnosis/Indication Diagnosis SNOMED-CT Code Diagnosis ICD10 Code Diagnosis Note [id number] Nathaniel Mcconnell MD [facility] - [facility] [address] [place] [id number] 08/06/2021 17:15:40 10/15/2021 12:14:09 Altered mental status 804039574 R41.82 [id number] Lisa Dickson MD Main - [facility] [address] [place] [address] [id number] 11/08/2021 13:18:37 11/08/2021 15:39:12 [id number] Kristy Mosley MD Main - [facility] [address] [place] [id number] 12/12/2021 18:28:35 12/13/2021 14:59:56 Congestive heart failure [id number] I50.9 56y M with CHF and chronic kidney disease with recent hospital discharge w fluid limit of 1500ml with patient feeling dehydrated and thirsty. Patient has been using a bottle in ounces and drinking 2 of them summing to 32oz total. Education today that he is drinking less than he is allowed and walked through how much he can have per day. Reviewed lab findings with him, which appear to be at his baseline/W NL. Edema at his baseline - counseled on elevation, compressio n socks and walking. Encouraged f/u with PCP at appt already scheduled for early next week. [id number] Sienna Alatorre MD Main - [facility] [address] [place] [phone] 02/25/2022 13:53:52 03/04/2022 15:28:58 Hypoxia 603267907 R09.02 Congestive heart failure [id number] I50.9 [id number] Nathaniel Mcconnell MD Main - [facility] [address] [place] [id number] 04/23/2022 15:08:35 04/25/2022 10:49:48 Swelling of bilateral lower limbs [id number] M79.89 [id number] Kristy Mosley MD Main - [facility] [address] [place] [id number] 06/25/2022 17:15:30 06/26/2022 10:04:11 Dizziness [id number] R42 As noted, we were called to see this patient regarding concerns of dizziness. Evaluation in the field was performed by my physical therapy attendant colleague, as noted above, I provided real-time direction and supervisio n for this visit. The evaluation revealed a well appearing 56y M with recurrent dizziness wiht an episode of dizziness that had self-resol olive. per patient, episode v similar to his regular. VSS, EKG reassuring (inverted T in V1 and 2 but otherwise normal intervals, no st-t abnormalit ies). CBG normal. Encouraged patient to fu w PCP for eval and ppx. Impression :recurrent idzziness Plan:reass urance. f/u w PCP. Primary care, considerdi zziness eval if not yet done and appropriat e Dispositio n: We discussed the diagnostic uncertaint y of home visits and the risk associated with this. In this case, the patient and I felt this to be an acceptable and reasonable amount of risk given the benefit of avoiding an ED visit. We discussed the need to seek care urgently/e mergently in the setting of any new or worsening serious symptoms, particular ly dizziness, chest pain, shortness of breath, palpitatio ns, confusion or weakness. Health Concerns Section Related Observation LastModified by Organization Detai ls LastModified Time None Recorded Concern Status LastModified by Organization Details LastModified Time None Recorded Advance Directives Directive None Recorded Payers Insurance Date Sequence Insurance Name Policy Number Policy Holm Covered Member ID Holm Member ID Guarantor Name 03/29/2024 1 [facility] - DOS PRIOR TO 2022 - DUAL ELIGIBLE (MEDICARE REPLACEMENT/ADV ANTAGE - HMO) Romaine Longoria [id number] Romaine Longoria 03/29/2024 1 [facility] - DOS ON OR AFTER 2022 - DUAL ELIGIBLE - [employer]DC OPTIONS AND ONE CARE (MEDICARE REPLACEMENT/ADV ANTAGE - HMO) Romaine Longoria [id number] Romaine Longoria Notes Date Note Type Note Provider Name and Address Organization Details Recorded Time 11/08/2021 text/html HPI: Member attempted to go to the ED 11/06/21. He left AMA after 4 hours of not being seen. He continues to report not feeling well with edema in his legs, pain, SOB, cough, increased/uncontroll ed urination. .................... .................... .................... .................... .................... .................... .................... . CRC Nursing Assessment: Comments: Leila Forrest .................... .................... .................... .................... .................... .................... .................... . Senior Logistics Manager Note: Sent to evaluate pt with poly complaints. Arrived on scene to find pt sitting in chair in home. Pt is awake and alert, airway open and patent, breathing regular. Pt in no acute distress at this time. Pt states that 13 days ago he had episode of L sided, substernal cp and sob that lasted for a while . Pt denies radiation to arms/jaws. Since then, pt has had gradual weight gain of approx 10lbs and BLE edema. Pt reports BLE are tender and feel tight, skin is shiny but is intact with no weeping. +3 pitting. Pt reports swelling extends up legs and into groin, and also endorses that abd appears larger than normal. Abd is slightly firm, not tender, +distended. Breath sounds are clear, equal, bilateral. Pt reports +RIVERA that is getting worse, sometimes resulting in cough but resolves with rest. Pt denies hx of TX/CHF. Pt states urinary incontinence mentioned in intake note is chronic since prostate CA surgery and denies dysuria. Performed 12 lead and uploaded images to [employer]. Consulted [facility] who ordered POC CMP and then 20mg of IV lasix. Advised pt to call PCP office after my departure and get an TONI in person visit. Stressed importance of red flags and low threshold for ER. Pt to weigh himself today/tomorrow to document weight loss. No further questions at this time. .................... .................... .................... .................... .................... .................... .................... . Disposition: Fulfilled Lisa Dickson MD [address] [place] [address],[address], [place], [phone], [employer] 11/08/2021 15:39:10 12/12/2021 text/html HPI: Member discharged from [facility] on 11/22/21 for CHF exacerbation, started on HCTZ-Lisinopril. member reports was put on 1500mL fluid restriction. Member hasnt been drinking fluids and reports feeling dehydrated, throat dry mouth, tired and sleepy. BP taken twice 96/64, 102/72. Member will need evaluation .................... .................... .................... .................... .................... .................... .................... . CRC Nursing Assessment: Comments: CRC RN DID NOT NEED FURTHER INFO [facility] HPI: recent admission to hospital for CHF hospital. on new fluid restriction of 1500ml. started hctz-lisinopril during recent admission. he is feeling intolerably thirsty. he is drinking more than the limit. today he drank 32oz. he reports legs are sore but this is not new and it was present when he was admitted to the hospital recently and on discharge. Kristy Mosley MD [address] [facility],[address], [place], [phone], [employer] 12/12/2021 18:46:47 02/25/2022 text/html HPI: Romaine is a 56 y/o male with PMH significant for DM 2, HF, COPD, h/o alcohol abuse, nicotine dependence, GERD, depression, anxiety, and tumor of neck (followed by Dr. Allred). Romaine reports since Thursday02/21/22 he has had chills, aches, congestion, sinus pressure, fatigue, dizziness and nausea. S/S come and go. Visit requested to r/o flu/covid and eval member further in the home today 02/25/22 for appropriate tx if warranted. .................... .................... .................... .................... .................... .................... .................... . CRC Nursing Assessment: Comments: CRC RN did not require any additional information to process this visit. .................... .................... .................... .................... .................... .................... .................... . Senior Logistics Manager Note: Sent to evaluate pt with several days of sob/cough/polycompla int. Arrived on scene to find pt ambulating to door. Pt is awake and alert, airway open and patent, breathing labored with +dyspnea on exertion. Pt states that x1 week he's been c/o fatigue, tactile fevers, cough with green sputum, sob, body aches, malaise, and johnson. Pt endorses keeping up with PO/fluid intake but states he feels like he's getting worse and felt dizzy today. Pt has been taking albuterol MDI sporadically with a little effect. Pt denies cp, but +tightness on inspiration and coughing, +sob, -n/v/d, -chills, +johnson, +sinus congestion, -sore throat, -diaphoresis, +dizziness with standing. Skin is flushed, warm, dry. Breath sounds reveal diffuse insp/exp wheezes. Obtained vitals, pt found to be mildly hypotensive and +hypoxic, RA 87% at rest. Pt placed on 2lpm of 02 via n/c. Orthostatics negative. Rapid covid and rapid flu both negative. Consulted [facility] who agreed with this assessment that pt would benefit from further eval/imaging at ER. Placed 20g in L hand and activated EMS. Pt care transferred to [facility] and pt to be transported to [facility]. .................... .................... .................... .................... .................... .................... .................... . Disposition: Fulfilled Sienna Alatorre MD [address] [facility],[address], [place], [phone], [facility] [employer] [facility] 10/28/2022 17:55:02 04/23/2022 text/html HPI: 56 y/o with reports of 1 week of increased LE swelling, erythema, warmth, abrasions, fatigue. R/o LE cellulitis. .................... .................... .................... .................... .................... .................... .................... . CRC Nursing Assessment: Comments: Reviewed - Ryder CABALLERO .................... .................... .................... .................... .................... .................... .................... . Senior Logistics Manager Note From Jerome Walls: [employer] to the above for the 56 y/o male cellulitis, upon arrival the pt was ambulating around the scene, the pt was A&0 x4, skin pink / warm / dry, strong regular radial pulses talking in full non - labored sentences, pt reported 2 weeks of increase general weakness shortness of breath, one week of swollen legs increasing in redness and irritation, and two nights increase shortness of breath when laying down and having to sleep in a pt reported 02/2022 being in the hospital for pneumonia and they took him off his . ( - ) chest pain. (+) shortness of breath when walking or exerting him self, lung ds clear bi - lateral, (+/=) chest rise, (+) general weakness, (- ) on the stroke scale, nausea / vomiting / diarrhea, pt reported normal eating drinking and normal urine output bowel movements, vitals listed above, sinus on the monitor, 12 - lead non - diagnostic STEMI, FSBG 241, POC labs obtained and sent to [facility]. pt denied recent falls / trauma , pt legs knees to angles swollen bi - lateral, right leg was red, neither was warm to touch or open wounds or weeping. (+/=) CSMS and pulses, [facility] contacted and ordered 40mg Lasix SIVP the pt was given a prescription to get him to his PCP appointment next week, supportive care and when to call 911 discussed. (- ) adverse on to medication administration .................... .................... .................... .................... .................... .................... .................... . Disposition: Fulfilled Nathaniel Mcconnell MD [address] [facility],[address], [place], [address], [employer] 07/24/2022 14:52:33 06/25/2022 text/html HPI: Romaine is a 56 y/o male, seen for VV today by INSTALLER TECHNICIAN. Romaine reports earlier in the day he experienced an episode of dizziness, sweating, and cold chills. He states the dizziness has since resolved. Denies CP/SOB. Reports seasonal allergies have been bothersome. He is having ongoing issues with chronic head and neck pain. Requesting visit to r/o if further workup is warranted in the ED. EKG, POC BS, etc. .................... .................... .................... .................... .................... .................... .................... . CRC Nursing Assessment: Comments: Review request no further information needed to process visit [facility] HPI: recurrent dizziness for past year. established w pcp. checked sugar only after eating. cbg 215. normal is 150-250 for him. no chest pain, shortness of breath. feeling better now. feels like one of his normal episdoes............ .................... .................... .................... .................... .................... .................... .......... Senior Logistics Manager Note From Edis Colon: Pt complains of a episode of dizziness and light headedness earlier today. Pt reports that he is a diabetic and after making a PB&J sandwich he felt much better. Pt did not check his BGL during his episode but is confident that his symptoms were due to his mild hypoglycemic state. Pt reports having similar episodes in the past. Pt presents COAX 4 speaking in full sentences. Skin PWD, HEENT unremarkable, PERRL, Airway patent with adequate tidal volume and clear lung sounds in all mujica. Abdomen soft and non distended in all quadrants, Arms and legs unremarkable with CMS intact in all extremities. VS stable, 12 lead EKG NSR non dx for STEM! with flipped T waves in lead V1 and V2 . POC BGL 215mg/dI and pt afebrile. [facility] contacted who agreed that pts episode likely attributed to his diabetes and instructed pt to follow up with PCP Pt educated on S/SX that would indicate 911/ED visit and it was suggested that pt keep log of these episodes and what his BGL is during each. .................... .................... .................... .................... .................... .................... .................... . Disposition: Fulfilled Kristy Mosley MD [address] [facility],[address], [place], [address], JULIANA - [employer] ErrandsCAROL ANN MORALES 06/25/2022 17:32:07
--- OUTSIDE RECORDS SUMMARY | 2024-08-29 12:37 | XMS_ITS | Clinical Summary ---
Author Organization [facility] Address [address] [place] [address] Phone Care Team Providers Care Status Controller Name Role Phone Rita Fierro MD Primary Care Provide r Allergies No known active allergies Medications metoprolol succinate (TOPROL-XL) 100 MG 24 hr tablet Dose: 100 MG; Form: Take 1 TAB ER 24H; Route: PO; Frequency: QD; Directions: Not available; Details: Dispense: Tablet(s); Date: 01/12/2015 5 Active OMEPRAZOLE ORAL Dose: 20 MG; Form: Take [address]; Route: PO; Frequency: QD; Directions: Not available; Details: Dispense: Tablet(s); Date: 02/22/2015 6 Active albuterol (PROVENTIL HFA;VENTOLIN HFA) 90 mcg/actuation inhaler Dose: 2 PUFF; Form: Not available; Route: INH; Frequency: Q6H; Directions: Not available; Details: Not available; Date: 02/22/2015 6 Active ALPRAZolam (XANAX) 0.25 MG tablet Dose: 0.25 MG; Form: Take 1 TABLET; Route: PO; Frequency: BID; Directions: 1 tab BID as needed; Details: Dispense: Tablet(s); Date: 01/12/2015 5 Active ibuprofen (ADVIL,MOTRIN) 400 MG tablet Take 400 mg by mouth daily as needed for pain (specific location in comments). Active oxyCODONE (ROXICODONE) 5 mg/5 mL solution Take 5 mL (5 mg total) by mouth every 4 (four) hours as needed for pain (specific location in comments). Dose: Not available; Form: Not available; Route: PO; Frequency: PRN pain; Directions: As directed, Take 5-10 mL every 4 hours by mouth as needed for severe pain; Details: Dispense: 500 ML(s); Date: 02/05/2015 Earliest Fill Date: 08/29/15 250 mL 0 6 Active Additional Information Patient not taking.Reported on 05/21/2020 folic acid, bulk, 100 % Powd Take 1 mg by mouth. Active FLUoxetine (PROZAC) 20 MG capsule Take 20 mg by mouth. Active busPIRone (BUSPAR) 5 MG tablet Take 5 mg by mouth. Active levothyroxine (SYNTHROID, LEVOTHROID) 50 MCG tablet Take 50 mcg by mouth. Active metoprolol tartrate (LOPRESSOR) 100 MG tablet Take 100 mg by mouth. Active thiamine (VITAMIN B-1) 100 MG tablet Take 100 mg by mouth. Active omeprazole (PRILOSEC) 20 MG capsule Take 20 mg by mouth. Active acetaminophen (TYLENOL) 500 MG tablet Take 500 mg by mouth every 6 (six) hours as needed for pain (specific location in comments). Active tamsulosin (FLOMAX) 0.4 mg Cap Take 1 capsule (0.4 mg total) by mouth daily. 1/2 hour after supper 90 capsule 1 2 Active Active Problems Problem Noted Date Diagnosed Date Prostate cancer 04/14/2020 CKD (chronic kidney disease), stage III 04/15/19 21 ETOH abuse 04/14/2020 Hypothyroidism 04/14/2020 GERD (gastroesophageal reflux disease) 1 COPD (chronic obstructive pulmonary disease) 07/2020 Gout 04/14/2020 Head and neck cancer 08/22/2015 Hypertension 01/12/2015 Overview (01/16/2015): Hypertensive disorder Anxiety 01/12/2015 Overview (01/16/2015): Anxiety Family History Medical History Relation Comments Cancer Mother Relation Status Comments Mother Social History Tobacco Use Types Packs/Day Years Used Date Smoking Tobacco: Former Cigarettes Alcohol Use Standard Drinks/Week Comments Yes 4 (1 standard drink = 0.6 oz pur e alcohol) Education Answer Date Recorded Are you interested in more education? Not on elpidio e 06/06/2022 Are you concerned about learning? Not on file 06/06/2022 No 06/06/2022 No 06/06/2022 Digital Access Answer Date Recorded No 07/07/2022 No 07/07/2022 Reliable internet access at home? Not on file 07/07/2022 Device with a working camera? Not on file Sex and Gender Information Value Date Recorded Sex Assigned at Not on file Legal Sex Male 2:46 PM EST Gender Identity Not on file Sexual Orientation Not on file Last Filed Vital Signs Vital Sign Reading Time Taken Comments Blood Pressure 133/83 06/18/2020 2:11 PM EDT Pulse 81 06/18/2020 2:11 PM EDT Temperature 36.4 C (97.5 F) 08/24/2015 4:00 AM EDT Respiratory Rate 18 08/24/2015 4:00 AM EDT Oxygen Saturation 95% 06/18/2020 2:11 PM EDT Inhaled Oxygen Concentration 40% 10:00 AM EDT Weight 99.3 kg (218 lb 14.4 oz) 06/18/2020 2:11 PM EDT Height 155.8 cm (5' 1.32 ) 08/22/2015 6:10 AM ED T Body Mass Index 40.93 08/22/2015 6:10 AM EDT Plan of Treatment Health Maintenance Due Date Last Done Comments Adult Td,Tdap Booster 1964 BLOOD PRESSURE 1964 LIPID PANEL 1964 TSH LEVEL 1964 DEPRESSION SCREENING 1976 SMOKING Hx and SMOKELESS TOB ACCO SCREENING 1977 HEPATITIS C SCREENING 1982 HIV ONE-TIME SCREENING (18-6 5 YEARS) 1982 ZOSTER VACCINES (1 of 2) 09/14/1983 COLOGUARD 2009 COLONOSCOPY 2009 COLORECTAL CANCER SCREENING 2009 FIT TEST 2009 FOBT 2009 SIGMOIDOSCOPY 2009 VIRTUAL COLONOSCOPY 2009 PNEUMOCOCCAL VACCINES (50+ y ears) (2 of 2 - PCV) 03/22/2017 03/22/2016 COVID-19 VACCINE (2 - 2023-2 5 season) 2023 05/09/2020 HEPATITIS A VACCINES Aged Out No long er eligible based on patient's age to complete this topic HIB VACCINES Aged Out No longer eligi ble based on patient's age to complete this topic MENINGOCOCCAL VACCINES (ACWY) Aged Out No longer eligible based on patient's age to complete this topic MENINGOCOCCAL VACCINES (B) Aged Out N o longer eligible based on patient's age to complete this topic Medical Devices Not on file [place] [address] [address] [place] [address] CARE MEDICARE REPLACEMENT JULIET VALDIVIA [id number] [facility] MEDICARE REPLACEMENT [facility] MEDICARE REPLACEMENT [facility] MEDICARE REPLACEMENT [facility] MEDICARE REPLACEMENT [facility] CARE MEDICARE REPLACEMENT [place] [address] [address] CARE MEDICARE REPLACEMENT Advance Directives For more information, please contact: [phone] (9AM - 5PM Mikki/[facility], Thursday-Thursday) Documents on File Type Date Recorded Patient Director Post Expl anation Healthcare Proxy 08/27/2015 11:01 AM * Full Code (Presumed) (Latest Code Status on File) Date Activated Date Inactivated Comments 08/22/2015 11:35 AM 08/24/2015 10:39 AM Care Teams Status Controller Relationship Specialty Start Date End Date Rita Fierro MD [address] [place] [address] PCP - General Internal Medicine 01/12/15 Additional Source Comments The information contained in this document represents components of the legal health record. It is not the complete legal health record.[facility]
--- OUTSIDE RECORDS SUMMARY | 2024-08-29 12:37 | XMS_ITS | Clinical Summary ---
Author Organization [facility] Facility Address [address] [address] Care Team Providers Care Saddle Cutter Name Role Phone Rita Fierro MD Primary Care Provide r Allergies No known active allergies Medications albuterol HFA (ProAir HFA) 108 (90 Base) MCG/ACT inhaler 1 puff by Other route 4 (four) times a day 02/22/19 16 Active ALPRAZolam (XANAX) 0.25 MG tablet Dose: 0.25 MG; Form: Take 1 TABLET; Route: PO; Frequency: BID; Directions: 1 tab BID as needed; Details: Dispense: Tablet(s); Date: 01/12/2015 01/13/20 15 Active aspirin 81 MG chewable tablet Chew 81 mg Act bryan buPROPion XL (WELLBUTRIN XL) 150 MG 24 hr tablet Take 1 tablet by mouth 1 (one) time each day Active busPIRone (BUSPAR) 5 MG tablet Take 5 mg by mouth Active folic acid (FOLVITE) 1 MG tablet Take 1 tablet by mouth 1 (one) time each day Active levoFLOXacin (LEVAQUIN) 500 MG tablet Take 500 mg by mouth 04/16/19 19 Active levothyroxine (SYNTHROID, LEVOTHROID) 50 MCG tablet Take 1 tablet by mouth every night Active LORazepam (Ativan) 0.5 MG tablet Take 1 tablet by mouth 3 (three) times a day Active metoprolol succinate XL (TOPROL-XL) 100 MG 24 hr tablet Take 1 tablet by mouth every morning 01/13/20 15 Active nicotine (NICODERM CQ) 21 MG/24HR Apply 1 patch topically 1 (one) time each day Active omeprazole (PriLOSEC) [address] capsule Take 1 capsule by mouth 1 (one) time each day Active thiamine (VITAMIN B-1) 100 MG tablet Take 1 tablet by mouth 1 (one) time each day Active traMADol (ULTRAM) 50 MG tablet Take 50 mg by mouth Active FLUOXETINE HCL PO Take 20 mg by mouth Active Multiple Vitamins-Minerals (Multivitamin Adult, Minerals,) tablet Take 1 tablet by mouth 1 (one) time each day Active acetaminophen (TYLENOL) 500 MG tablet Take 500 mg by mouth every 6 (six) hours if needed Active sertraline (ZOLOFT) 100 MG tablet Take 100 mg by mouth 1 (one) time each day 05/19/19 21 Active Vivitrol 380 MG reconstituted suspension INJECT 1ML IN THE MUSCLE ONCE A MONTH 05/26/19 21 Active Narcan 4 MG/0.1ML liquid ADMINISTER 1 SPRAY INTO ONE NOSTRIL. CALL 911. REPEAT AFTER 2 3 MIN IF NO OR MINIMAL RESPONSE 03/27/19 21 Active naltrexone (DEPADE) 50 MG tablet PLEASE SEE ATTACHED FOR DETAILED DIRECTIONS 04/02/19 21 Active allopurinol (ZYLOPRIM) 100 MG tablet 06/17/19 21 Active amLODIPine (NORVASC) 10 MG tablet 03/15/19 21 Active EPINEPHrine (EPIPEN) 0.3 MG/0.3ML injection syringe 1 PRE FILLED PEN SYRINGE INTRAMUSCULAR INJECT DIRECTED 03/26/19 21 Active [facility] Cortisone Maximum Strength 1 % cream APPLY EXTERNALLY TO RIGHT KNEE DAILY NEEDED FOR RASH 03/26/19 21 Active mometasone (ELOCON) 0.1 % cream 01/05/20 21 Active fluticasone (FLONASE) 50 MCG/ACT nasal spray 11/18/19 21 Active cloNIDine (CATAPRES) 0.1 MG tablet 01/11/20 21 Active acamprosate (CAMPRAL) 333 MG EC tablet 12/04/19 21 Active Baclofen 5 MG tablet 12/11/19 21 Active tadalafil (CIALIS) 20 MG tablet USE DIRECTED 45 MINUTES BEFORE SEXUAL ACTIVITY BY MOUTH 07/16/19 22 Active metFORMIN (GLUCOPHAGE) 500 MG tablet Take 500 mg by mouth 08/30/19 22 Active colchicine 0.6 MG tablet Take 0.6 mg by mouth in the morning and 0.6 mg in the evening. TWICE A DAY FOR 7 DAYS. 08/30/19 22 Active Naltrexone (Vivitrol) 380 MG reconstituted suspension Inject 380 mg into the shoulder, thigh, or buttocks Active Active Problems Problem Noted Date Diagnosed Date Hydrocele 09/18/2021 Allergic rhinitis 09/18/2021 Anemia 09/18/2021 Cigarette smoker 09/18/2021 Hyperlipidemia 09/18/2021 Obese class I 09/18/2021 Recurrent major depression 09/18/2021 Spinal stenosis 09/18/2021 Alanine aminotransferase above reference range 0 06/15/2020 Hypertensive renal disease 06/15/2020 Hypokalemia 06/15/2020 Proteinuria 06/15/2020 Chronic kidney disease stage 3 04/14/2020 Alcoholism 04/14/2020 Chronic obstructive pulmonary disease 04/14/2020 Gastroesophageal reflux disease 04/14/2020 Gout 04/14/2020 Hypothyroidism 04/14/2020 Malignant neoplasm of prostate 04/14/2020 Oral mucositis 02/04/2017 Malignant neoplasm of neck 08/22/2015 Anxiety disorder 01/12/2015 Overview (09/18/2021): Anxiety Anxiety Hypertensive disorder 01/12/2015 Overview (09/18/2021): Hypertensive disorder Hypertensive disorder Immunizations Immunization Administration Dates Next Due DTaP 07/12/2010 Influenza Whole 11/11/2017 Influenza, Unspecified 11/30/2020,12/15/2018,,03/22/2016 Pfizer SARS-COV-2 12/04/2020,05/31/2020,05/10/19 21 Pneumococcal Polysaccharide 03/22/2016 Shingrix 03/14/2015 Family History Medical History Relation Comments Heart disease Father CAD Cancer Mother Colon Relation Status Comments Father Mother Social History Tobacco Use Types Packs/Day Years Used Date Smoking Tobacco: Former Smokeless Tobacco: Never Tobacco Cessation:Counseling Given: No Alcohol Use Standard Drinks/Week Comments Not Currently 0 (1 standard drink = 0.6 oz pure alcohol) Alcoholic Drinks/day: 3 or more drinks per day Sex and Gender Information Value Date Recorded Sex Assigned at Not on file Legal Sex Male 4:53 PM EST Gender Identity Not on file Sexual Orientation Not on file Last Filed Vital Signs Vital Sign Reading Time Taken Comments Blood Pressure 138/82 09/18/2021 4:03 PM EDT Pulse 73 09/18/2021 4:03 PM EDT Temperature - - Respiratory Rate - - Oxygen Saturation 95% 01/16/2021 1:40 PM EST Inhaled Oxygen Concentration - - Weight 95.3 kg (210 lb) 09/18/2021 4:03 PM EDT Height 180.3 cm (5' 11 ) 02/01/2020 12:00 PM EST Body Mass Index 29.29 02/01/2020 12:00 PM EST Plan of Treatment Health Maintenance Due Date Last Done Comments Hepatitis B Vaccine (1 of 3 - 19+ 3-dose series) 09/14/1983 Colorectal Cancer Screening: Annual FOBT 2013 Colorectal Cancer Screening: Colonoscopy 2013 Colorectal Cancer Screening: Sigmoidoscopy 2013 Pneumococcal Vaccine: 50+ Ye ars (2 of 2 - PCV) 03/22/2017 03/22/2016 Influenza Vaccine (#1) 2024 1, 12/15/2018, 11/11/2017, Additional history exists Pneumococcal Vaccine: Peds ( 0 to 5 Years) and At-Risk Patients (6 to 49 Years) Discontinued 03/22/2016 Insurance [facility] JULIET VALDIVIA [id number] Care Teams Saddle Cutter Relationship Specialty Start Date End Date Rita Fierro MD [facility] [address] [place] [address] [address] [place], [place] PCP - General 02/20/20
== END 2024-08-29 12:17 | disposition home or self-care (01) ==
LOC: HO.ENCR 11:29
PROVIDERS: Visit Provider Physician Assistant
DX: E11.21 Type 2 diabetes mellitus with diabetic nephropathy (principal); Z79.4 Long term (current) use of insulin; I10 Essential (primary) hypertension; E78.5 Hyperlipidemia, unspecified; E08.621 Diabetes mellitus due to underlying condition with foot ulcer; L97.529 Non-pressure chronic ulcer of other part of left foot with unspecified severity; I25.10 Atherosclerotic heart disease of native coronary artery without angina pectoris; I27.20 Pulmonary hypertension, unspecified; R07.9 Chest pain, unspecified

== ENCOUNTER → 2024-08-29 11:29 | Outpatient (BNVA) | payer MEDICARE, MEDICAID, SELFPAY | PROVIDERS: Visit Provider Physician Assistant | DX: E11.21 Type 2 diabetes mellitus with diabetic nephropathy (principal); I10 Essential (primary) hypertension; E78.5 Hyperlipidemia, unspecified; L97.529 Non-pressure chronic ulcer of other part of left foot with unspecified severity; I25.10 Atherosclerotic heart disease of native coronary artery without angina pectoris; I27.20 Pulmonary hypertension, unspecified; R07.9 Chest pain, unspecified; Z79.4 Long term (current) use of insulin | CPT/HCPCS: 82947; 83036; 99202 ==

== ENCOUNTER 2024-09-13 11:24 | Outpatient (REF) | payer MEDICARE, MEDICAID, SELFPAY ==
--- OUTSIDE RECORDS SUMMARY | 2024-09-13 12:12 | XMS_ITS | Clinical Summary ---
Author Organization [facility] Address [address] [place] [address] Care Team Providers Care Mobile Health Vehicle Operator Name Role Phone Rita Fierro MD Primary [...] age to complete this topic Care Teams Mobile Health Vehicle Operator Relationship Specialty Start Date End Date Rita Fierro MD [address] [place] [address] [place] [address] PCP - General Internal Medicine 08/02/16
--- OUTSIDE RECORDS SUMMARY | 2024-09-13 12:12 | XMS_ITS | Encounter Summary ---
Author Organization [facility] Address [address] [place] [address] Care Team Providers Care Manager Poker Name Role Phone Rita Fierro MD Primary Care Provide r Encounter Details Date Type Department Care Team (Late st Contact Info) Description 06/08/2024 Lab Requisition [facility] - Main Lab [address] [facility] [place] [address] Krishan Sotelo MD [address] [place] [address] [address] [place], [address] Type 2 diabetes mellitus without complications [...] 2 diabetes mellitus without complications (CMS/HCC V24, CMS/[facility] V28) documented in this encounter Results * (ABNORMAL) Hemoglobin A1c (06/08/2024 7:34 AM EDT) Hemoglobin A1C 7.1(H) <6.5 % LAB CHEMISTRY METHOD 06/08/2024 12:47 PM EDT [facility] Mean Bld Glu Estim. 157 mg/dL LAB CHEMISTRY METHOD 06/08/2024 12:47 PM EDT [facility] Blood Venous blood specimen / Unknown Venipuncture / Unknown 06/08/2024 7:34 AM EDT 06/08/2024 10:04 AM EDT us Krishan Sotelo MD LAB BLOOD ORDERABLES Final Resul t [facility] [address] [place] [address], documented in this encounter Visit Diagnoses Diagnosis Type 2 diabetes mellitus without complications (CMS/HCC V24, CMS/HCC V28) documented in this encounter Care Teams Manager Poker Relationship Specialty Start Date End Date Rita Fierro MD [address] [place] [address] [place] PCP - General Internal Medicine 08/02/16 documented as of this encounter
--- OUTSIDE RECORDS SUMMARY | 2024-09-13 12:12 | XMS_ITS | Clinical Summary ---
Author Organization [facility] Facility Address [address] [address] Care Team Providers Care Tube Sizer Operator Name Role Phone Rita Fierro MD [...] (6 to 49 Years) Discontinued 03/22/2016 Insurance [facility] JULIET VALDIVIA [id number] Care Teams Tube Sizer Operator Relationship Specialty Start Date End Date Rita Fierro MD [facility] [address] [place] [address] [address] [place], [place] PCP - General 02/20/20
--- OUTSIDE RECORDS SUMMARY | 2024-09-13 12:12 | XMS_ITS | Clinical Summary ---
Author Organization [facility] Address [address] [place] [address] Phone Care Team Providers Care Registered Radiologic Technologist Name Role Phone Rita Fierro MD Primary [...] (2 - 2023-2 5 season) 2023 05/09/2020 RSV VACCINE (1 - Risk 60-74 years 1-dose series) 2024 HEPATITIS A VACCINES Aged Out No long [...] topic Medical Devices Not on file Insurance [facility] MEDICARE REPLACEMENT JULIET VALDIVIA [id number] [facility] MEDICARE REPLACEMENT JULIET VALDIVIA [id number] [place] [address] [address] [place] [address] [place] [address] [place] [address] CARE MEDICARE REPLACEMENT [facility] MEDICARE REPLACEMENT [facility] MEDICARE REPLACEMENT [facility] MEDICARE REPLACEMENT [facility] MEDICARE REPLACEMENT JULIET VALDIVIA [id number] Advance Directives For more information, please contact: [phone] (9AM - 5PM Mikki/[facility], Thursday-Thursday) Documents on File Type Date Recorded Patient Medication Tech Expl anation Healthcare Proxy 08/27/2015 11:01 AM * Full Code (Presumed) (Latest Code Status on File) Date Activated Date Inactivated Comments 08/22/2015 11:35 AM 08/24/2015 10:39 AM Care Teams Registered Radiologic Technologist Relationship Specialty Start Date End Date Rita Fierro MD [address] [place] [address] PCP - General Internal Medicine 01/12/15 Additional Source Comments The information contained in this document represents components of the legal health record. It is not the complete legal health record.[facility]
--- OUTSIDE RECORDS SUMMARY | 2024-09-13 12:12 | XMS_ITS | Clinical Summary ---
Author Organization [employer] Address [address] [facility] [address] [place] [address] Care Team Providers Care Calibration Checker Name Role Phone Unavailable Primary Care Provider Unavailabl e Encounters Date Type Department Care Team Description 07/25/2024 Telephone [facility] [address] [place] [address] Julián Pineda MD [facility] - New Patient [...] Tobacco Screening 1976 Hepatitis C Screening 1982 Zoster Vaccines (1 of 2) 2014 Pneumococcal Vaccine: 50+ Years (2 of 2 - PCV) 03/22/2017 03/22/2016 DTaP/Tdap/Td Vaccines (2 - Tdap) 07/12/2020 07/12/2010 COVID-19 Vaccine ( season) 2023 12/04/2020, 05/31/2020, 05/09/2020 RSV Patients and Patients Aged 60 years or older (1 - Risk 60-74 years 1-dose series) 2024 Influenza Vaccine (#1) 2024 1, 12/15/2018, 11/11/2017, Additional history exists HIB Vaccines Aged Out No longer eligi ble based on patient's age to complete this topic HPV Vaccines Aged Out No longer eligi ble based on patient's age to complete this topic Hepatitis A Vaccines Aged Out No long er eligible based on patient's age to complete this topic Hepatitis B Vaccines Aged Out No long er eligible [...] patient's age to complete this topic Insurance [facility] MEDICARE ADVANTAGE
[2024-09-13 12:36] LABS: Albumin Level 4.5 g/dL (3.5-5.0); Alkaline Phosphatase 102 U/L (39-117); Anion Gap 11 (12-20); Aspartate Amino Transferase 29 U/L (5-37); Blood Urea Nitrogen 26 mg/dL (9-16); Calcium 9.2 mg/dL (8.4-10.2); Carbon Dioxide 26 mmol/L (22-29); Chloride 105 mmol/L (96-108); Cholesterol 174 mg/dL (<200); Estimated Glomerular Filt Rate 55; HDL Cholesterol 29 mg/dL (>40); Potassium 4.3 mmol/L (3.3-5.1); Sodium 138 mmol/L (135-145); Total Protein 7.8 g/dL (6.5-8.0); Triglycerides 288 mg/dL (<150)
[2024-09-13 12:39] LABS: B Type Natriuretic Peptide 74 pg/mL (<100)
[2024-09-13 12:45] LABS: Microalbum/Creatinine Ratio Ur 164.2 ug/mg cr (<30)
[2024-09-13 13:29] LABS: Alanine Aminotransferase 34 U/L (0-40)
== END 2024-09-13 11:25 | disposition home or self-care (01) ==
LOC: HO.LAB 11:24
PROVIDERS: Visit Provider Physician Assistant
DX: I10 Essential (primary) hypertension (principal); E08.621 Diabetes mellitus due to underlying condition with foot ulcer; L97.529 Non-pressure chronic ulcer of other part of left foot with unspecified severity; E78.5 Hyperlipidemia, unspecified; Z79.4 Long term (current) use of insulin
CPT/HCPCS: 36415; 80053; 80061; 82043; 82570; 83880; 84681; 86341

== ENCOUNTER 2024-09-16 10:09 | Outpatient (AMB) | payer MEDICARE, MEDICAID, SELFPAY ==
[2024-09-16 10:12] VITALS: BP 130/76; PULSE 66; O2SAT 95; BMI 30.4
--- NOTE | 2024-09-16 10:12 | MHC.OFFVIS ---
Vital Signs 09/16/24 10:12 Height 5 ft 11 in Weight 218 lb 4.122 oz BMI 30.4 BP 130/76 Blood Pressure Location Lt brachial Position Sitting Pulse 66 Pulse Source Pulse Oximeter Pulse Oximetry (%) 95 Oxygen Delivery Method Room Air Intake Visit Reasons: Type 2 diabetes mellitus without complications Intake Note: Patient present today for Type 2 Diabetes Mellitus Last Diabetic eye exam: Patient has last exam in August 2024 Last Podiatry Visit: Patient has an upcoming appt on Oct 11 Random Glucose: 180 mg/dl HgA1C: 6.7% 08/29/24 Senior Network Security Engineer Required: No Accompanied by: Self / Same As Patient Allergies No Known Allergies Allergy (Verified 09/16/24 10:18) Medication List - Last Reconciled 09/16/24 by Soraida Lozano PA-C acamprosate 666 mg PO TID blood sugar diagnostic (FreeStyle Lite Strips) test blood sugar one time blood-glucose sensor ([email or web address] G7 Sensor device) Use daily As directed clonidine HCl 0.1 mg PO BEDTIME empagliflozin (Jardiance) 10 mg PO DAILY fluticasone propion-salmeterol 250-50 mcg/dose 1 ea inhalation BID fluticasone propionate 50 mcg/actuation 1 spray intranasal DAILY folic acid 1 mg PO DAILY insulin glargine (Lantus Solostar U-100 Insulin) 10 units subcut BEDTIME levothyroxine 200 mcg PO DAILY@0600 metformin 500 mg PO BID metoprolol succinate ER 100 mg (2 x 50 mg) PO DAILY mometasone 0.1% 1 appl topical DAILY montelukast 10 mg PO DAILY montelukast (Singulair) 10 mg PO DAILY omeprazole 20 mg PO DAILY@0630 pregabalin 75 mg PO BID sertraline 100 mg PO DAILY tamsulosin (Flomax) 0.4 mg PO BEDTIME HPI HPI Type 2 diabetes mellitus without complications: Details: Patient is a 58-year-old male with a significant past medical history of hypotension, htn, anxiety, depression, alcohol abuse (currently sober), asthma, CKD with recent DARRELL, GERD, hypothyroidism, HLD, CAD, possible pulmonary hypertension and diabetes presenting today for a follow up regarding his diabetes. He is somewhat of a poor historian in his here today by himself. His sister has been helping him a lot with medications/life. He states she has him on a better diet. He has been sober since hospitalization. Endo: States that he was diagnosed with diabetes in 2022. His most recent A1c is 6.7. He is currently being managed with Lantus 10 units at night, metformin 500 mg bid, jardiance 10 mg -metformin causes some upset stomach/nausea CGM- he forgot to bring the reader and has not been using the sensors because 2 fell off. He has not noted any low blood sugars. hypoglycemia- He denies any recent low blood sugars He was following with [facility] end[facility]ology at initial dx of dm but has not been seen in over 1 year per patient. I do not have any records of this.. Vasc: He has a left diabetic foot ulcer now. He states he has been struggling with this ulcer for about a year and it got better after wound care/following with vascular surgery in February. He states that it is no longer leaking it is less painful. He states that he has had vna services helping him manage the wound. He does think that it is getting a bit better. He has follow up next week with podiatry in [place] and he is booked with [facility] on 10/13. He is unable to follow up with [facility] right now due to insurance. CKD: following with nephrology. CV: Blood pressure today in the office is 130/76 He is currently on metoprolol 100 mg daily. Not on a statin [facility] Medical History (Updated 08/29/24 @ 12:52 by Soraida Lozano PA-C) Nasal septal defect ETOH abuse Throat cancer Surgical History History of surgery on lower extremity H/O excision of mass Family History Father No problems noted. Mother No problems noted. Social History Household Members: None Housing: House Do you presently have visiting nurse or other home services: Yes Alcohol intake: current Alcohol intake frequency: 3 or more drinks per day Alcohol type: beer Comment: 1:1 sitter Patient Tobacco Use Status: Current everyday Tobacco user Tobacco use type: Cigarette e-Cigarette/Vaping Use: Never Used Second Hand Smoke Exposure: No service: No Physical Exam Vital Signs: Last Vital Signs Pulse 66 09/16/24 10:12 BP 130/76 09/16/24 10:12 Pulse Ox 95 09/16/24 10:12 Oxygen Delivery Method Room Air 09/16/24 10:12 BMI result Body Mass Index 30.4 Const Orientation/consciousness: patient oriented x3 HEENT Ears: hearing grossly normal bilaterally Neck Neck: Yes no lymphadenopathy Thyroid: Thyroid normal Carotids: no bruits Lymphatic: no lymphadenopathy noted Resp Auscultation: clear to auscultation bilaterally Cardio Rate: regular rate Rhythm: regular rhythm Heart sounds: S1 normal heart sound present, S2 normal heart sound present and Murmur heart sound present Peripheral pulses: dorsalis pedis present Skin General skin exam: no rashes or lesions noted Neuro General: patient oriented x3, gait normal and no focal motor deficits Extrem Other: Monofilament sensation intact bilaterally. Vibratory sensation intact bilaterally. There is a 3 cm x 3 cm ulcer on the plantar aspect of the left foot. No drainage. There does appear to be a center pit that extends deeper into the tissue in appears to be tunneling General: Yes normal to inspection Results Reviewed Results Reviewed: Laboratory Tests 08/29/24 09/13/24 11:47 11:43 Creatinine 1.33 Estimated GFR 55 Fasting Glucose 105 H Hgb A1c (Clinic) 6.7 H C-Peptide 6.34 H AST 29 ALT 34 Alkaline Phosphatase 102 Triglycerides 288 H Cholesterol 174 LDL Cholesterol, Calc 88 HDL Cholesterol 29 L Assessment & Plan Assessment & Plan (1) Diabetic ulcer of left foot associated with diabetes mellitus due to underlying condition: Code(s): E08.621 - Diabetes mellitus due to underlying condition with foot ulcer; L97.529 - Non-pressure chronic ulcer of other part of left foot with unspecified severity Category: Medical Plan: slightly improved follow up with podiatry and vascular surgery as directed continue with wound care (2) Insulin dependent type 2 diabetes mellitus, controlled: Code(s): E11.9 - Type 2 diabetes mellitus without complications; Z79.4 - snf (current) use of insulin Category: Medical Plan: continue lantus 10 units daily continue metformin 500 mg twice a day continue jardiance 10 mg daily start trulicity 0.75 mg once a week reviewed signs and symptoms of hyper/hypoglycemia that would require emergent medical treatment reviewed rule of 15s provided dexcom sensor in office back up testing supplies ordered (3) HTN (hypertension): Code(s): I10 - Essential (primary) hypertension Category: Medical Plan: wnl continue current plan (4) HLD (hyperlipidemia): Code(s): E78.5 - Hyperlipidemia, unspecified Category: Medical Plan: start atorvastatin - for cholesterol but wait to start it a few days after starting trulicity. This is just in case you have a side effect we will know which drug. We will recheck labs in 3-4 weeks. Orders: Orders Comprehensive Met. Panel Today E08.621 - Diabetes mellitus due to underlying condition with foot ulcer, E11.9 - Type 2 diabetes mellitus without complications, E78.5 - Hyperlipidemia, unspecified, I10 - Essential (primary) hypertension, L97.529 - Non-pressure chronic ulcer of other part of left foot with unspecified severity, Z79.4 - snf (current) use of insulin Medications: New atorvastatin (Lipitor) 10 mg PO BEDTIME 90 tabs 0RF lancets (Accu-Chek Softclix Lancets) use daily As directed to monitor blood sugars 100 ea 3RF E11.65 - Type 2 diabetes mellitus with hyperglycemia, Z79.4 - snf (current) use of insulin dulaglutide (Trulicity) 0.75 mg (0.5 mL) subcut QWEEK 2 mL 3RF blood-glucose meter (Accu-Chek Guide Glucose Meter) Use daily As directed to monitor blood sugars 1 ea 0RF E08.621 - Diabetes mellitus due to underlying condition with foot ulcer, E11.9 - Type 2 diabetes mellitus without complications, L97.529 - Non-pressure chronic ulcer of other part of left foot with unspecified severity, Z79.4 - snf (current) use of insulin blood sugar diagnostic (Accu-Chek Guide test strips) use daily As directed to monitor blood sugars 100 ea 3RF E11.21 - Type 2 diabetes mellitus with diabetic nephropathy Patient Instructions: continue lantus 10 units daily continue metformin 500 mg twice a day continue jardiance 10 mg daily start trulicity 0.75 mg once a week -call me if any low blood sugars start atorvastatin - for cholesterol but wait to start it a few days after starting trulicity. This is just in case you have a side effect we will know which drug. We will recheck labs in 3-4 weeks. Coding Level of Care Code Est Pt Level 4 (09690) Complex EM visit Add On G2211 Diagnoses Diabetic ulcer of left foot associated with diabetes mellitus due to underlying condition E08.621; L97.529 Insulin dependent type 2 diabetes mellitus, controlled E11.9; Z79.4 HTN (hypertension) I10 HLD (hyperlipidemia) E78.5
--- OUTSIDE RECORDS SUMMARY | 2024-09-16 10:14 | XMS_ITS | Clinical Summary ---
Author Organization [facility] Address [address] [place] [address] Phone Care Team Providers Care Charter Boat Captain Name Role Phone Rita Fierro MD Primary [...] topic Medical Devices Not on file Insurance [facility] MEDICARE REPLACEMENT JULIET VALDIVIA [id number] [facility] MEDICARE REPLACEMENT JULIET VALDIVIA [id number] [place] [address] [address] [address] [place] [address] CARE MEDICARE REPLACEMENT [facility] MEDICARE REPLACEMENT [facility] MEDICARE REPLACEMENT [facility] MEDICARE REPLACEMENT [facility] MEDICARE REPLACEMENT JULIET VALDIVIA [id number] Advance Directives For more information, please contact: [phone] (9AM - 5PM Mikki/[facility], Thursday-Thursday) Documents on File Type Date Recorded Patient Glass Robot Operator Expl anation Healthcare Proxy 08/27/2015 11:01 AM * Full Code (Presumed) (Latest Code Status on File) Date Activated Date Inactivated Comments 08/22/2015 11:35 AM 08/24/2015 10:39 AM Care Teams Charter Boat Captain Relationship Specialty Start Date End Date Rita Fierro MD [address] [place] [address] PCP - General Internal Medicine 01/12/15 Additional Source Comments The information contained in this document represents components of the legal health record. It is not the complete legal health record.[facility]
--- OUTSIDE RECORDS SUMMARY | 2024-09-16 10:14 | XMS_ITS | Clinical Summary ---
Author Organization [facility] Address [address] [address] Care Team Providers Care Last Inserter Name Role Phone Rita Fierro MD Primary [...] (6 to 49 Years) Discontinued 03/22/2016 Insurance [facility] JULIET VALDIVIA [id number] Care Teams Last Inserter Relationship Specialty Start Date End Date Rita Fierro MD [facility] [address] [place] [address] [address] [place], [place] PCP - General 02/20/20
--- OUTSIDE RECORDS SUMMARY | 2024-09-16 10:14 | XMS_ITS | Clinical Summary ---
Author Organization [facility] Address [address] [place] [address] Care Team Providers Care Financial Recording Clerk Name Role Phone Rita Fierro MD Primary [...] age to complete this topic Care Teams Financial Recording Clerk Relationship Specialty Start Date End Date Rita Fierro MD [address] [place] [address] [place] [address] PCP - General Internal Medicine 08/02/16
--- OUTSIDE RECORDS SUMMARY | 2024-09-16 10:14 | XMS_ITS | Encounter Summary ---
Author Organization [facility] Address [id number] [place] [id number] Care Team Providers Care School Speech Therapist Name Role Phone Rita Fierro MD Primary Care Provide r Encounter Details Date Type Department Care Team (Late st Contact Info) Description 06/08/2024 Lab Requisition [facility] - Main Lab [address] [facility] [place] [address] Krishan Sotelo MD [address] [place] [address] [address] [place], [phone] Type 2 diabetes mellitus without complications [...] 2 diabetes mellitus without complications (CMS/HCC V24, CMS/[facility] V28) documented in this encounter Results * (ABNORMAL) Hemoglobin A1c (06/08/2024 7:34 AM EDT) Hemoglobin A1C 7.1(H) <6.5 % LAB CHEMISTRY METHOD 06/08/2024 12:47 PM EDT [facility] ([facility]) [facility] LAB Mean Bld Glu Estim. 157 mg/dL LAB CHEMISTRY METHOD 06/08/2024 12:47 PM EDT [facility] LAB Blood Venous blood specimen / Unknown Venipuncture / Unknown 06/08/2024 7:34 AM EDT 06/08/2024 10:04 AM EDT us Krishan Sotelo MD LAB BLOOD ORDERABLES Final Resul t [facility] LAB [address] [place] [address], documented in this encounter Visit Diagnoses Diagnosis Type 2 diabetes mellitus without complications (CMS/HCC V24, CMS/HCC V28) documented in this encounter Care Teams School Speech Therapist Relationship Specialty Start Date End Date Rita Fierro MD [address] [place] [address] [place] PCP - General Internal Medicine 08/02/16 documented as of this encounter
--- OUTSIDE RECORDS SUMMARY | 2024-09-16 10:14 | XMS_ITS | Clinical Summary ---
Author Organization [employer] Address [address] [facility] 7t [place] [address] Care Team Providers Care Cashier Host/Hostess Name Role Phone Unavailable Primary Care Provider Unavailabl e Encounters Date Type Department Care Team Description 07/25/2024 Telephone [facility] [address] [place] [address] Julián Pineda MD CHW - New Patient [...] patient's age to complete this topic Insurance [facility] MEDICARE ADVANTAGE
[2024-09-16 10:25] LABS: Glucose, Whole Blood 180 mg/dL (60-115)
== END 2024-09-16 10:43 | disposition home or self-care (01) ==
LOC: HO.ENCR 10:10
PROVIDERS: Visit Provider Physician Assistant
DX: E11.621 Type 2 diabetes mellitus with foot ulcer (principal); L97.529 Non-pressure chronic ulcer of other part of left foot with unspecified severity; E11.9 Type 2 diabetes mellitus without complications; Z79.4 Long term (current) use of insulin; I10 Essential (primary) hypertension; E78.5 Hyperlipidemia, unspecified

== ENCOUNTER → 2024-09-16 10:09 | Outpatient (BNVA) | payer MEDICARE, MEDICAID, SELFPAY | PROVIDERS: Visit Provider Physician Assistant | DX: L97.529 Non-pressure chronic ulcer of other part of left foot with unspecified severity (principal); E08.621 Diabetes mellitus due to underlying condition with foot ulcer; E78.5 Hyperlipidemia, unspecified; I10 Essential (primary) hypertension; Z79.4 Long term (current) use of insulin | CPT/HCPCS: 82947; 99212 ==

== ENCOUNTER 2024-09-27 11:29 | Outpatient (AMB) | payer MEDICARE, MEDICAID, SELFPAY ==
[2024-09-27 11:38] VITALS: BP 90/50; PULSE 72; O2SAT 91; BMI 30.3
--- NOTE | 2024-09-27 11:38 | HO.NEPHOV ---
Vital Signs 09/27/24 11:38 Height 5 ft 11 in Weight 217 lb BMI 30.3 BP 90/50 L Blood Pressure Location Lt brachial Position Sitting Pulse 72 Pulse Source Pulse Oximeter Pulse Oximetry (%) 91 L Oxygen Delivery Method Room Air Intake Visit Reasons: FU/ LVM Clinical Research Specialist Required: No Accompanied by: Self / Same As Patient Allergies No Known Allergies Allergy (Verified 09/27/24 11:40) HPI Comments Details: 58-year-old male presenting with medication adjustment and follow-up for kidney function and blood pressure management. The patient has a history of chronic kidney disease, where kidney function plunged to 29% during a previous hospitalization. He has recently experienced significant fatigue and dizziness since returning home, potentially linked to low blood pressure noted at the same time. Amlodipine, part of his antihypertensive regimen, is suspected to contribute to hypotension, and its use is being reconsidered. Additionally, the patient is known to have diabetes mellitus and has been receiving treatment for alcohol use disorder. The management and progress of these conditions were acknowledged but were not elaborated upon in terms of specific therapeutic measures. It is crucial to monitor blood pressure and kidney function carefully due to their potential to worsen the patient's fatigue and overall condition. 08/04/24 Feels better Stopped Amlodipine BP at home was 116/70 by RN 09/27/2024. Not sure if he is taking his medications. Blood pressure is rather low today. He is asymptomatic [facility] Medical History (Updated 08/29/24 @ 12:52 by Soraida Lozano PA-C) Nasal septal defect ETOH abuse Throat cancer Surgical History History of surgery on lower extremity H/O excision of mass Family History Father No problems noted. Mother No problems noted. Social History Household Members: None Housing: House Do you presently have visiting nurse or other home services: Yes Alcohol intake: current Alcohol intake frequency: 3 or more drinks per day Alcohol type: beer Comment: 1:1 sitter Patient Tobacco Use Status: Current everyday Tobacco user Tobacco use type: Cigarette e-Cigarette/Vaping Use: Never Used Second Hand Smoke Exposure: No service: No Physical Exam Vital Signs: Last Vital Signs Pulse 72 09/27/24 11:38 BP 90/50 L 09/27/24 11:38 Pulse Ox 91 L 09/27/24 11:38 Oxygen Delivery Method Room Air 09/27/24 11:38 BMI result Body Mass Index 30.3 Comfortable Neck supple no JVD. Lungs entry equal no rales. Heart S1-S2 heard no gallop or rub. Abdomen soft nontender. Neuro alert awake oriented. No asterixis. Extremities no edema. Results Reviewed Nephrology Results: Hgb, (14.0-18.0) 10.3 g/dl L 08/04/24 WBC, (4.8-10.8) 9.9 X10*3/uL 08/04/24 Plt Count, (160-400) 378 X10*3/uL 08/04/24 Sodium, (135-145) 138 mmol/L 09/13/24 Potassium, (3.3-5.1) 4.3 mmol/L 09/13/24 Chloride, (96-108) 105 mmol/L 09/13/24 Carbon Dioxide, (22-29) 26 mmol/L 09/13/24 BUN, (9-16) 26 mg/dL H 09/13/24 Creatinine, (0.5-1.4) 1.33 mg/dL 09/13/24 Calcium, (8.4-10.2) 9.2 mg/dL 09/13/24 Urine Creatinine 64.53 mg/dL 09/13/24 Assessment & Plan Assessment & Plan (1) DARRELL (acute kidney injury): Comment: hypoperfusion/ATN- resolving Code(s): N17.9 - Acute kidney failure, unspecified Category: Medical Plan: Keep I > O Avoid nephrotoxins (2) Hypotension: Code(s): I95.9 - Hypotension, unspecified Category: Medical Plan: Discontinue metoprolol and clonidine. (3) Diabetic ulcer of left foot associated with diabetes mellitus due to underlying condition: Code(s): E08.621 - Diabetes mellitus due to underlying condition with foot ulcer; L97.529 - Non-pressure chronic ulcer of other part of left foot with unspecified severity Category: Medical Plan: slightly improved follow up with podiatry and vascular surgery as directed continue with wound care (4) HLD (hyperlipidemia): Code(s): E78.5 - Hyperlipidemia, unspecified Category: Medical Plan Encouraged him to bring all his medication during next visit. We will not add any antihypertensive medications until his blood pressure normalizes. Orders: Orders Basic Metabolic Panel 6 Weeks I10 - Essential (primary) hypertension Medications: Discontinued metoprolol succinate ER Discontinued Reason: Patient no longer taking 100 mg (2 x 50 mg) PO DAILY 30 tabs 2RF Coding Level of Care Code Est Pt Level 4 (78206) Diagnoses DARRELL (acute kidney injury) N17.9 Hypotension I95.9 Diabetic ulcer of left foot associated with diabetes mellitus due to underlying condition E08.621; L97.529 HLD (hyperlipidemia) E78.5
--- OUTSIDE RECORDS SUMMARY | 2024-09-27 13:04 | XMS_ITS | Encounter Summary ---
Author Organization Address [address] [place] [phone] Care Team Providers Care Metal Coater Name Role Phone Rita Fierro MD Primary Care Provide r Encounter Details Date Type Department Care Team (Late st Contact Info) Description 06/08/2024 Lab Requisition [facility] - Main Lab [address] [facility] [place] [address] Krishan Sotelo MD [address] [place] [address] [address] [place], [phone] Type 2 diabetes mellitus without complications [...] 2 diabetes mellitus without complications (CMS/HCC V24, CMS/[facility] V28) documented in this encounter Results * (ABNORMAL) Hemoglobin A1c (06/08/2024 7:34 AM EDT) Hemoglobin A1C 7.1(H) <6.5 % LAB CHEMISTRY METHOD 06/08/2024 12:47 PM EDT [facility] LAB Mean Bld Glu Estim. 157 mg/dL LAB CHEMISTRY METHOD 06/08/2024 12:47 PM EDT [facility] LAB Blood Venous blood specimen / Unknown Venipuncture / Unknown 06/08/2024 7:34 AM EDT 06/08/2024 10:04 AM EDT us Krishan Sotelo MD LAB BLOOD ORDERABLES Final Resul t [facility] [address] [place] [address], documented in this encounter Visit Diagnoses Diagnosis Type 2 diabetes mellitus without complications (CMS/HCC V24, CMS/HCC V28) documented in this encounter Care Teams Metal Coater Relationship Specialty Start Date End Date Rita Fierro MD [address] [place] [address] [place] PCP - General Internal Medicine 08/02/16 documented as of this encounter
--- OUTSIDE RECORDS SUMMARY | 2024-09-27 13:04 | XMS_ITS | Clinical Summary ---
Author Organization [facility] Address [address] [place] [address] Care Team Providers Care Tug Boat Engineer Name Role Phone Rita Fierro MD Primary [...] Maintenance Due Date Last Done Comments Hepatitis C Screening 1964 Depression Screening 1976 Preventative Health Evaluation 1982 Colon Cancer Screening (Colonoscopy) 2009 Shingrix-Zoster Vaccine (2 of 2) 05/09/2015 03/14/2015 Pneumococcal Vaccine (2 of 2 - PCV) 03/22/2017 03/22/2016 DTap / Tdap / Td (2 - Tdap) 07/12/2020 07/12/2010 COVID-19 Vaccine ( season) 2023 12/04/2020, 05/31/2020, 05/09/2020 Influenza Vaccine (#1) 2024 , 12/15/2018, 12/25/2016, Additional history exists RSV Adult > 60+ Yrs or (1 - 1-dose 75+ series) 09/14/2039 Hepatitis B Vaccines Aged Out No long er eligible based on patient's age to complete this topic RSV Ped < 20 months Aged Out No longe r eligible based on patient's age to complete this topic Care Teams Tug Boat Engineer Relationship Specialty Start Date End Date Rita Fierro MD [address] [place] [address] [place] [address] PCP - General Internal Medicine 08/02/16
--- OUTSIDE RECORDS SUMMARY | 2024-09-27 13:05 | XMS_ITS | Clinical Summary ---
Author Organization [employer] Address [address] [facility] 7t [place] [address] Care Team Providers Care Computational Physicist Name Role Phone Unavailable Primary Care Provider Unavailabl e Encounters Date Type Department Care Team Description 07/25/2024 Telephone [facility] MEDICINE [address] [place] [address] Julián Pineda MD CHW - New Patient [...] patient's age to complete this topic Insurance [facility] MEDICARE ADVANTAGE
--- OUTSIDE RECORDS SUMMARY | 2024-09-27 13:05 | XMS_ITS | Clinical Summary ---
Author Organization [facility] Address [address] [place] [address] Phone Care Team Providers Care Field Marketing Lead Name Role Phone Rita Fierro MD Primary [...] topic Medical Devices Not on file Insurance [facility] MEDICARE REPLACEMENT JULIET VALDIVIA [id number] [facility] MEDICARE REPLACEMENT JULIET VALDIVIA [id number] [place] [address] [address] [place] [place] [address] [place] [address] [place] [address] [place] [address] CARE MEDICARE REPLACEMENT [facility] CARE MEDICARE REPLACEMENT [facility] CARE MEDICARE REPLACEMENT [facility] MEDICARE REPLACEMENT [facility] CARE MEDICARE REPLACEMENT JULIET VALDIVIA [id number] Advance Directives For more information, please contact: [phone] (9AM - 5PM Mikki/[facility], Thursday-Thursday) Documents on File Type Date Recorded Patient Tire Beader Maker Expl anation Healthcare Proxy 08/27/2015 11:01 AM * Full Code (Presumed) (Latest Code Status on File) Date Activated Date Inactivated Comments 08/22/2015 11:35 AM 08/24/2015 10:39 AM Care Teams Field Marketing Lead Relationship Specialty Start Date End Date Rita Fierro MD [address] [place] [address] PCP - General Internal Medicine 01/12/15 Additional Source Comments The information contained in this document represents components of the legal health record. It is not the complete legal health record.[facility]
--- OUTSIDE RECORDS SUMMARY | 2024-09-27 13:05 | XMS_ITS | Clinical Summary ---
Author Organization [facility] Facility Address [address] [address] Care Team Providers Care Collections Officer Name Role Phone Rita Fierro MD Primary [...] Health Maintenance Due Date Last Done Comments Colorectal Cancer Screening: Annual FOBT 2013 Colorectal Cancer Screening: Colonoscopy 2013 Colorectal Cancer Screening: Sigmoidoscopy 2013 Pneumococcal Vaccine: 50+ Years (2 of 2 - PCV) 03/22/2017 03/22/2016 Influenza Vaccine (#1) 2024 , 12/15/2018, 11/11/2017, Additional history exists Pneumococcal Vaccine: Peds (0 to 5 Years) and At-Risk Patients (6 to 49 Years) Discontinued 03/22/2016 Hepatitis B Vaccine Aged Out No longe r eligible based on patient's age to complete this topic Insurance [facility] J[place]IET [place]DIVIA [id number] Care Teams Collections Officer Relationship Specialty Start Date End Date Rita Fierro MD [facility] [address] [place] [address] [address] [place], [place] PCP - General 02/20/20
== END 2024-09-27 11:49 | disposition home or self-care (01) ==
LOC: HO.HKA 11:30
PROVIDERS: Visit Provider Internal Medicine Hypertension Specialist
DX: N17.9 Acute kidney failure, unspecified (principal); I95.9 Hypotension, unspecified; E08.621 Diabetes mellitus due to underlying condition with foot ulcer; L97.529 Non-pressure chronic ulcer of other part of left foot with unspecified severity; E78.5 Hyperlipidemia, unspecified
CPT/HCPCS: 99214

== ENCOUNTER → 2024-09-27 11:29 | Outpatient (BNVA) | payer MEDICARE, MEDICAID, SELFPAY | PROVIDERS: Visit Provider Internal Medicine Hypertension Specialist | DX: N17.9 Acute kidney failure, unspecified (principal); I95.9 Hypotension, unspecified; E08.621 Diabetes mellitus due to underlying condition with foot ulcer; L97.529 Non-pressure chronic ulcer of other part of left foot with unspecified severity; E78.5 Hyperlipidemia, unspecified | CPT/HCPCS: 99212 ==

== ENCOUNTER 2024-10-14 14:41 | Outpatient (AMB) | payer MEDICARE, MEDICAID, SELFPAY ==
[2024-10-14 14:42] VITALS: BMI 30.3
--- NOTE | 2024-10-14 14:42 | MHC.OFFVIS ---
Vital Signs 10/14/24 14:42 Height 5 ft 11 in Weight 217 lb BMI 30.3 Intake Visit Reasons: UNDERCOLLAR BASTER/Endo ref for non-pressure chronic ulcer LLE Intake Note: UNDERCOLLAR BASTER for Left LE wound, started a year ago. [place]iatry in [place]. Pt states he went to woundcare Allergies No Known Allergies Allergy (Verified 09/27/24 11:40) HPI HPI UNDERCOLLAR BASTER/Endo ref for non-pressure chronic ulcer LLE: Details: Very pleasant 59-year-old gentleman brought in for evaluation regarding nonhealing ulcer of the left plantar surface. He has a past medical history significant for alcohol abuse CKD pulmonary hypertension and diabetes. He reports that he has not used alcohol since his last hospital admission. He was diagnosed with diabetes in 2022. He now has developed this plantar ulceration on the left foot which he has been struggling with for nearly a year. He has been [facility] he now presents to us for vascular evaluation. In addition he has significant swelling of the lower extremities left more so than right. Patient denies any previous venous surgery or injections. Patient denies any history of DVT/ PE. Patient denies any history of phlebitis. Trial of compression includes - [id number] They now present for vascular evaluation regarding their varicose veins and nonhealing ulcer. [facility] Medical History Nasal septal defect ETOH abuse Throat cancer Surgical History History of surgery on lower extremity H/O excision of mass Family History Father No problems noted. Mother No problems noted. Social History (Updated 10/14/24 @ 14:45 by ERIKA Abbasi) Household Members: None Housing: House Do you presently have visiting nurse or other home services: Yes Alcohol intake: current Alcohol intake frequency: 3 or more drinks per day Alcohol type: beer Comment: 1:1 sitter Patient Tobacco Use Status: Current everyday Tobacco user Tobacco use type: Cigarette Cigarettes Per Day: 10 e-Cigarette/Vaping Use: Never Used Second Hand Smoke Exposure: No service: No Review of Systems Const All systems reviewed & are unremarkable except as noted in HPI and below Reports no additional complaints ENT Reports Normal hearing present Card Denies chest pain, Denies chest pain at rest, Denies chest pain with activity and Denies pedal edema Resp Denies cough GI Denies abdominal pain Musc Denies abnormal gait, Denies muscle cramps and Denies radiating pain into limb Skin/Breast Denies skin ulcer and Denies wounds Neuro Reports Normal hearing present and Denies abnormal gait Psych Reports no additional complaints Physical Exam Vital Signs: BMI result Body Mass Index 30.3 Const General: cooperative, healthy appearing and comfortable Orientation/consciousness: oriented to person, oriented to place and oriented to time HEENT Head: Yes normal to inspection Neck Neck: Yes normal visual inspection Carotids: no bruits Chest Chest palpation & inspection: normal inspection of the chest Resp Effort & Inspection: normal respiratory effort and able to speak in complete sentences Auscultation: clear to auscultation bilaterally, no crackles, no rales, no rhonchi and no wheezes Cardio Other: Palpable dorsalis pedis and posterior tibial pulses bilaterally Rate: regular rate Rhythm: regular rhythm Heart sounds: S1 normal heart sound present and S2 normal heart sound present Bruits: no carotid bruits Peripheral pulses: Peripheral pulses 2+ throughout GI Inspection: Yes normal to inspection Skin Other: Left foot on the plantar surface 2nd metatarsal head measures 1 x 0.5 x 0.2 cm Wounds: no wounds Hair: normal Neuro General: oriented to person, oriented to place and oriented to time Cranial nerves: Yes CN's II-XII intact bilaterally and Yes Normal hearing present Cognition (Neuro): normal cognition Motor exam (neuro): 5/5 motor strength present throughout Extrem Other: venous exam: No significant superficial varicosities or spider telangiectasias, minimal edema General: No clubbing, No cyanosis and No edema Psych Appearance: grossly normal Mental Status: mental status grossly normal Speech and movement: Normal speech and movement present Assessment & Plan Assessment & Plan (1) Diabetic ulcer of left foot associated with diabetes mellitus due to underlying condition: Code(s): E08.621 - Diabetes mellitus due to underlying condition with foot ulcer; L97.529 - Non-pressure chronic ulcer of other part of left foot with unspecified severity Category: Medical Qualifiers: Diabetic foot ulcer location: unspecified part of foot Non-pressure ulcer stage: unspecified non-pressure ulcer stage Qualified Code(s): E08.621 - Diabetes mellitus due to underlying condition with foot ulcer; L97.529 - Non-pressure chronic ulcer of other part of left foot with unspecified severity Plan: In short patient has a diabetic foot ulcer. I do believe this is more pressure related. He does have palpable arterial pulses. We will workup his venous disease. We did discuss the importance of offloading and diabetes control. He will follow up with us after venous insufficiency testing. (2) Varicose veins of left lower extremity with inflammation: Code(s): I83.12 - Varicose veins of left lower extremity with inflammation Category: Medical Plan: Patient may have an element of venous insufficiency. Although I do not believe that the ulcer was related to his venous status. I do believe it is more pressure and diabetic in nature. We did discuss the importance of compression elevation and exercise. We will workup his venous disease as his arterial status is stable. Thank you for allowing us to assist in his care. Orders: Orders US venous duplex LE BI Today I83.12 - Varicose veins of left lower extremity with inflammation Coding Level of Care Code New Pt Level 4 (36473) Complex EM visit Add On G2211 Diagnoses Diabetic ulcer of left foot associated with diabetes mellitus due to underlying condition, unspecified part of foot, unspecified ulcer stage E08.621; L97.529 Diabetic foot ulcer location: unspecified part of foot Non-pressure ulcer stage: unspecified non-pressure ulcer stage Varicose veins of left lower extremity with inflammation I83.12
--- OUTSIDE RECORDS SUMMARY | 2024-10-14 14:54 | XMS_ITS | Clinical Summary ---
Author Organization [facility] Address [address] [place] [address] Phone Care Team Providers Care Graphic Designer Name Role Phone Rita Fierro MD Primary [...] DEPRESSION SCREENING 1976 SMOKING Hx and SMOKELESS TOBACCO SCREENING 1977 HEPATITIS C SCREENING 1982 HIV ONE-TIME SCREENING (18-6 5 YEARS) 1982 ZOSTER VACCINES (1 of 2) 09/14/1983 COLOGUARD 2009 COLONOSCOPY 2009 COLORECTAL CANCER SCREENING 2009 FIT TEST 2009 FOBT 2009 SIGMOIDOSCOPY 2009 VIRTUAL COLONOSCOPY 2009 PNEUMOCOCCAL VACCINES (50+ years) (2 of 2 - PCV) 03/22/2017 03/22/2016 INFLUENZA VACCINE (#1) 2024 9, 12/25/2016, 03/22/2016 RSV VACCINE (1 - Risk 60-74 years 1-dose series) 2024 COVID-19 VACCINE (2 - 2024-2 6 season) 2024 05/09/2020 HEPATITIS A VACCINES Aged Out No [...] topic Medical Devices Not on file Insurance [place] [address] CARE MEDICARE REPLACEMENT [facility] ONE CARE MEDICARE REPLACEMENT [address] [place] [address] [place] [place] [address] CARE MEDICARE REPLACEMENT [facility] CARE MEDICARE REPLACEMENT [facility] CARE MEDICARE REPLACEMENT [facility] MEDICARE REPLACEMENT [facility] CARE MEDICARE REPLACEMENT [facility] ONE CARE MEDICARE REPLACEMENT JULIET VALDIVIA [facility] Advance Directives For more information, please contact: [phone] (9AM - 5PM [facility], Thursday-Thursday) Documents on File Type Date Recorded Patient Gifted Teacher Expl anation Healthcare Proxy 08/27/2015 11:01 AM * Full Code (Presumed) (Latest Code Status on File) Date Activated Date Inactivated Comments 08/22/2015 11:35 AM 08/24/2015 10:39 AM Care Teams Graphic Designer Relationship Specialty Start Date End Date Rita Fierro MD [address] [place] [address] PCP - General Internal Medicine 01/12/15 Additional Source Comments The information contained in this document represents components of the legal health record. It is not the complete legal health record.[facility]
--- OUTSIDE RECORDS SUMMARY | 2024-10-14 14:54 | XMS_ITS | Clinical Summary ---
Author Organization [facility] Address [address] [place] [address] Phone Care Team Providers Care Apprentice Photographer Name Role Phone Rita Fierro MD Primary Care Provide r Immunizations Name Administration Dates Next Due Pfizer SARS-CoV-2 COVID-19, mRNA, LNP-S, preservative free 12/04/2020,05/31/2020,05/09/2020 Surgical History Surgery Date Site/Laterality Comments TESTICLE SURGERY PROCEDURE:TESTICLE SURGERY TONSILLECTOMY PROCEDURE:TONSILLECTOMY Medical History Medical History Date Comments Squamous cell carcinoma of head and neck DX:Squamous cell carcinoma of head and neck Hypertension DX:Hypertension Asthma DX:Asthma Peptic ulcer DX:Peptic ulcer Small bowel problem DX:Small bow el problem Family History Medical History Relation Name Comments [...] on file Sexual Orientation Not on file Obstetrics History Last Filed Vital Signs Vital Sign Reading Time Taken Comments Blood Pressure 168/83 03/18/2022 9:13 AM EST Sit ting Left arm Pulse 96 03/18/2022 9:13 AM EST Temperature - - Respiratory Rate - - Oxygen Saturation - - Inhaled Oxygen Concentration - - Weight 106 kg (234 lb) 03/18/2022 9:13 AM EST Height - - Body Mass Index - - Plan of Treatment Health Maintenance Due Date Last Done Comments Diabetes: Annual Foot Exam 1974 Diabetes: Annual Retina Eye Exam 1974 Hepatitis A Vaccines (1 of 2 - Risk 2-dose series) 09/14/1983 Zoster Vaccines (2 of 2) 05/09/2015 03/14/2015 Pneumococcal Vaccine: 50+ Years (2 of 2 - PCV) 03/22/2017 03/22/2016 DTaP,Tdap,and Td Vaccines (2 - Tdap) 07/12/2020 07/12/2010 Cholesterol Screening (Lipid Panel) 01/17/2022 Colorectal Cancer Screening: Colonoscopy 01/17/2022 HIV Screening 01/17/2022 Hepatitis C Screening 01/17/2022 Medicare Annual Wellness Visit 01/17/2022 Social Influencers of Health Screening 01/17/2022 Depression Screening 02/10/2024 Diabetes: Annual Urine Albumin-Creatinine Ratio (uACR) 04/19/2024 10/29/2022 RSV Immunization Adult Patients (1 - Risk 60-74 years 1-dose series) 2024 Influenza Vaccine (#1) 2024 , 11/30/2020, 12/15/2018, Additional history exists Diabetes: Blood Sugar Control Test (HGBA1C) 12/08/2024 06/08/2024 Diabetes: Annual GFR (Glomerular Filtration Rate) 06/06/2025 06/06/2024 Hypertension/CHF/CAD Annual BMP Blood Test 06/06/2025 06/06/2024 COVID-19 Vaccine Completed 12/17/2023, , 05/31/2020, Additional history exists HIB Vaccines Aged Out [...] on patient's age to complete this topic MMR Vaccines Aged Out No longer eligi ble based on patient's age to complete this topic Meningococcal ACWY Vaccine Aged Out N o longer eligible based on patient's age to complete this topic Meningococcal B Vaccine Aged Out No l onger eligible based on patient's age to complete this topic RSV Immunization Patients Under 20 months Aged Out No longer eligible based on patient's age to complete this topic Varicella Vaccines Aged Out No longer eligible based on patient's age to complete this topic Procedures Procedure Name Priority Date/Time Associated Diagnosis Comments HEMOGLOBIN A1C Routine 06/08/2024 7:34 AM EDT Type 2 diabetes mellitus without complications ([facility] [place], [facility] V28) COMPREHENSIVE METABOLIC PANEL Routine 06/06/2024 7:22 AM EDT Essential (primary) hypertension Type 2 diabetes mellitus without complications ([facility] [place]24, [facility] V28) Metabolic encephalopathy Alcohol use, unspecified with withdrawal delirium ([facility] V24, [facility] V28) from Last 3 Months or Most Recently Relevant to Health Maintenance Results * (ABNORMAL) Hemoglobin A1c (06/08/2024 7:34 AM EDT) Hemoglobin A1C 7.1(H) <6.5 % LAB CHEMISTRY METHOD 06/08/2024 12:47 PM EDT [facility] Mean Bld Glu Estim. 157 mg/dL LAB CHEMISTRY METHOD 06/08/2024 12:47 PM EDT [facility] Blood Venous blood specimen / Unknown Venipuncture / Unknown 06/08/2024 7:34 AM EDT 06/08/2024 10:04 AM EDT us Krishan Sotelo MD LAB BLOOD ORDERABLES Final Resul t [facility] [address] [place] [address], * (ABNORMAL) Comprehensive metabolic panel (06/06/2024 7:22 AM EDT) Sodium 134 133 - 145 mmol/L LAB CHEMISTRY METHOD 06/06/2024 12:50 PM EDT [facility] Potassium 4.0 3.5 - 5.5 mmol/L LAB CHEMISTRY METHOD 06/06/2024 12:50 PM EDT [facility] Chloride 100 96 - 110 mmol/L LAB CHEMISTRY METHOD 06/06/2024 12:50 PM [facility] CO2 24 21 - 32 mmol/L LAB CHEMISTRY METHOD 06/06/2024 12:50 PM [facility] Anion Gap 10 3 - 11 LAB CHEMISTRY METHOD 06/06/2024 12:50 PM [facility] Glucose 146(H) 70 - 100 mg/dL LAB CHEMISTRY METHOD 06/06/2024 12:50 PM [facility] BUN 20 5 - 25 mg/dL LAB CHEMISTRY METHOD 06/06/2024 12:50 PM [facility] Creatinine 1.50(H) 0.70 - 1.30 mg/dL LAB CHEMISTRY METHOD 06/06/2024 12:50 PM [facility] eGFR 53(L) >=60 mL/min/1. 73m2 LAB CHEMISTRY METHOD 06/06/2024 12:50 PM [facility] Comment:Calculation based on the Chronic Kidney Disease Epidemiology Collaboration (CKD-EPI) equation refit without adjustment for race. BUN/Creatinine Ratio 13.3 LAB CHEMISTRY METHOD 06/06/2024 12:50 PM [facility] Calcium 9.4 8.5 - 10.5 mg/dL LAB CHEMISTRY METHOD 06/06/2024 12:50 PM [facility] AST (SGOT) 16 10 - 42 unit/L LAB CHEMISTRY METHOD 06/06/2024 12:50 PM [facility] ALT (SGPT) 15 10 - 60 unit/L LAB CHEMISTRY METHOD 06/06/2024 12:50 PM [facility] Alkaline Phosphatase 83 42 - 121 unit/L LAB CHEMISTRY METHOD 06/06/2024 12:50 PM [facility] Total Protein 7.1 6.0 - 8.0 g/dL LAB CHEMISTRY METHOD 06/06/2024 12:50 PM [facility] Albumin 3.3 3.2 - 5.0 g/dL LAB CHEMISTRY METHOD 06/06/2024 12:50 PM EDT [facility] Total Bilirubin 0.4 0.0 - 1.4 mg/dL LAB CHEMISTRY METHOD 06/06/2024 12:50 PM EDT [facility] Blood Venous blood specimen / Unknown Venipuncture / Unknown 06/06/2024 7:22 AM EDT 06/06/2024 9:08 AM EDT us Krishan Sotelo MD LAB BLOOD ORDERABLES Final Resul t [facility] [address] [place] [address], from Last 3 Months or Most Recently Relevant to Health Maintenance Insurance [employer] MEDICARE MEDICAID - [place] Advance Directives Documents on File Type Date Recorded Patient Lead Warehouse Associate Expl anation Health Care Decision (hx) 09/27/2018 AD GARCIA DIRECTIVE Health Care Decision (hx) 09/27/2018 AD GARCIA DIRECTIVE Health Care Decision (hx) 09/27/2018 AD GARCIA DIRECTIVE Health Care Decision (hx) 09/27/2018 AD GARCIA DIRECTIVE Health Care Decision (hx) 09/27/2018 AD GARCIA DIRECTIVE Health Care Decision (hx) 09/27/2018 AD GARCIA DIRECTIVE Health Care Decision (hx) 09/27/2018 AD GARCIA DIRECTIVE Health Care Decision (hx) 09/27/2018 AD GARCIA DIRECTIVE Health Care Decision (hx) 09/27/2018 AD GARCIA DIRECTIVE Health Care Decision (hx) 09/27/2018 AD GARCIA DIRECTIVE Health Care Decision (hx) 09/27/2018 AD GARCIA DIRECTIVE Care Teams Apprentice Photographer Relationship Specialty Start Date End Date Rita Fierro MD [address] [place] [address] PCP - General Internal Medicine 08/02/16
--- OUTSIDE RECORDS SUMMARY | 2024-10-14 14:54 | XMS_ITS | Encounter Summary ---
Author Organization [facility] Address [address] [place] [address] Care Team Providers Care Mental Health Worker Name Role Phone Rita Fierro MD Primary Care Provide r Encounter Details Date Type Department Care Team Description 02/21/2022 Social Work [facility] [address] [place] [address] [place]on Hoskins, [facility] [place] History Tobacco Use Types Packs/Day Years [...] file Not on file Not on file documented as of this encounter Plan of Treatment Not on file documented as of this encounter Visit Diagnoses Not on filedocumented in this encounter Care Teams Mental Health Worker Relationship Specialty Start Date End Date Rita Fierro MD [address] [place] [id number] PCP - General Internal Medicine 08/02/16 documented as of this encounter
--- OUTSIDE RECORDS SUMMARY | 2024-10-14 14:54 | XMS_ITS | Clinical Summary ---
Author Organization [facility] Facility Address [address] [address] Care Team Providers Care Cloth Weigher Name Role Phone Rita Fierro MD Primary [...] patient's age to complete this topic Insurance [facility] JULIET VALDIVIA [id number] Care Teams Cloth Weigher Relationship Specialty Start Date End Date Rita Fierro MD [facility] [address] [place] [address] [address] [place], [place] PCP - General 02/20/20
--- OUTSIDE RECORDS SUMMARY | 2024-10-14 14:54 | XMS_ITS | Clinical Summary ---
Author Organization [employer] Address [address] [place] [address] Care Team Providers Care Oracle Obiee Developer Name Role Phone Unavailable Primary Care Provider Unavailabl e Encounters Date Type Department Care Team Description 07/25/2024 Telephone [facility] [address] [place] [address] Julián Pineda MD [facility] - New Patient [...] DTaP/Tdap/Td Vaccines (2 - Tdap) 07/12/2020 07/12/2010 RSV Patients and Patients Aged 60 years or older (1 - Risk 60-74 years 1-dose series) 2024 COVID-19 Vaccine (4 - season) 2024 12/04/2020, 05/31/2020, 05/09/2020 Influenza Vaccine (#1) 2024 1, 12/15/2018, 11/11/2017, [...] patient's age to complete this topic Insurance [facility] MEDICARE ADVANTAGE
--- OUTSIDE RECORDS SUMMARY | 2024-10-14 14:54 | XMS_ITS | Encounter Summary ---
Author Organization [facility] Address [address] [place] [address] Care Team Providers Care Verifying Machine Operator Name Role Phone Rita Fierro MD Primary Care Provide r Encounter Details Date Type Department Care Team (Late st Contact Info) Description 06/08/2024 Lab Requisition [facility] - Main Lab [address] [facility] [place] [address] Krishan Sotelo MD [address] [place] [address] [address] [place], [phone] Type 2 diabetes mellitus without complications [...] mellitus without complications (CMS/HCC V24, CMS/[facility] V28) documented in this encounter Results * (ABNORMAL) Hemoglobin A1c (06/08/2024 7:34 AM EDT) Hemoglobin A1C 7.1(H) <6.5 % LAB CHEMISTRY METHOD 06/08/2024 12:47 PM EDT [facility] Mean Bld Glu Estim. 157 mg/dL LAB CHEMISTRY METHOD 06/08/2024 12:47 PM EDT [facility] Blood Venous blood specimen / Unknown Venipuncture / Unknown 06/08/2024 7:34 AM EDT 06/08/2024 10:04 AM EDT us Krishan Sotelo MD LAB BLOOD ORDERABLES Final Resul t [facility] [address] [place] [address], documented in this encounter Visit Diagnoses Diagnosis Type 2 diabetes mellitus without complications (CMS/HCC V24, CMS/HCC V28) documented in this encounter Care Teams Verifying Machine Operator Relationship Specialty Start Date End Date Rita Fierro MD [address] [place] [address] [place] PCP - General Internal Medicine 08/02/16 documented as of this encounter
--- OUTSIDE RECORDS SUMMARY | 2024-10-14 14:54 | XMS_ITS | Encounter Summary ---
Author Organization [facility] Address [id number] [place] [id number] Care Team Providers Care Fitness Manager Name Role Phone Rita Fierro MD Primary Care Provide r Encounter Details Date Type Department Care Team (Late st Contact Info) Description 06/06/2024 Lab Requisition [facility] - Main Lab [address] [facility] [place] [address] Krishan Sotelo MD [address] [place] [address] [phone] [facility] [phone] Essential (primary) hypertension; Type 2 diabetes mellitus without complications (CMS/HCC V24, CMS/HCC V28); Metabolic encephalopathy; Alcohol use, unspecified with withdrawal delirium (CMS/HCC V24, CMS/HCC V28) Social History Tobacco [...] Procedure Name Priority Date/Time Associated Diagnosis Comments CBC WITH AUTO DIFFERENTIAL Routine 06/06/2024 7:22 AM EDT Essential (primary) hypertension Type 2 diabetes mellitus without complications (CMS/HCC V24, CMS/HCC V28) Metabolic encephalopathy Alcohol use, unspecified with withdrawal delirium (CMS/HCC V24, CMS/HCC V28) CBC AND DIFFERENTIAL Routine 06/06/2024 7:22 AM EDT Essential (primary) hypertension Type 2 diabetes mellitus without complications (CMS/HCC V24, [facility] V28) Metabolic encephalopathy Alcohol use, unspecified with withdrawal delirium ([facility] V24, [facility] V28) COMPREHENSIVE METABOLIC PANEL Routine 06/06/2024 7:22 AM EDT Essential (primary) hypertension Type 2 diabetes mellitus without complications ([facility] V24, [facility] V28) Metabolic encephalopathy Alcohol use, unspecified with withdrawal delirium ([facility] V24, [facility] V28) documented in this encounter Results * (ABNORMAL) CBC auto differential (06/06/2024 7:22 AM EDT) [facility] WBC 9.4 4.8 - 10.8 K/mcL LAB HEMETOLOGY METHOD 06/06/2024 10:49 AM [facility] RBC 2.80(L) 4.50 - 5.50 M/mcL LAB HEMETOLOGY METHOD 06/06/2024 10:49 AM [facility] Hemoglobin 9.2(L) 13.5 - 17.5 g/dL LAB HEMETOLOGY METHOD 06/06/2024 10:49 AM [facility] Hematocrit 28.4(L) 42.0 - 54.0 % LAB HEMETOLOGY METHOD 06/06/2024 10:49 AM [facility] MCV 102.9(H) 79.0 - 98.0 FL LAB HEMETOLOGY METHOD 06/06/2024 10:49 AM [facility] MCH 33.3(H) 27.0 - 32.0 pcg LAB HEMETOLOGY METHOD 06/06/2024 10:49 AM [facility] MCHC 32.4 32.0 - 37.0 g/dL LAB HEMETOLOGY METHOD 06/06/2024 10:49 AM [facility] RDW 15.5(H) 11.0 - 15.0 % LAB HEMETOLOGY METHOD 06/06/2024 10:49 AM [facility] Platelets 505(H) 130 - 400 K/mcL LAB HEMETOLOGY METHOD 06/06/2024 10:49 AM [facility] MPV 10.2 7.0 - 11.0 FL LAB HEMETOLOGY METHOD 06/06/2024 10:49 AM [facility] NRBC 0.0 <1.0 % LAB HEMETOLOGY METHOD 06/06/2024 10:49 AM [facility] NRBC Absolute 0.00 <0.10 K/mcL LAB HEMETOLOGY METHOD 06/06/2024 10:49 AM [facility] Neutrophils Relative 71.0 % LAB HEMETOLOGY METHOD 06/06/2024 10:49 AM [facility] Lymphocytes Relative 13.6 % LAB HEMETOLOGY METHOD 06/06/2024 10:49 AM [facility] Monocytes Relative 7.0 % LAB HEMETOLOGY METHOD 06/06/2024 10:49 AM [facility] Eosinophils Relative 6.1 % LAB HEMETOLOGY METHOD 06/06/2024 10:49 AM [facility] Basophils Relative 1.1 % LAB HEMETOLOGY METHOD 06/06/2024 10:49 AM [facility] Immature Granulocytes Relative 1.2 % LAB HEMETOLOGY METHOD 06/06/2024 10:49 AM [facility] Neutrophils Absolute 6.66 1.50 - 7.00 K/mcL LAB HEMETOLOGY METHOD 06/06/2024 10:49 AM [facility] Lymphocytes Absolute 1.28 1.00 - 5.00 K/mcL LAB HEMETOLOGY METHOD 06/06/2024 10:49 AM [facility] Monocytes Absolute 0.66 0.20 - 1.00 K/mcL LAB HEMETOLOGY METHOD 06/06/2024 10:49 AM EDT [facility] Eosinophils Absolute 0.57(H) 0.00 - 0.50 K/mcL LAB HEMETOLOGY METHOD 06/06/2024 10:49 AM T [facility] Basophils Absolute 0.10 0.00 - 0.20 K/mcL LAB HEMETOLOGY METHOD 06/06/2024 10:49 AM EDT [facility] Immature Granulocytes Absolute 0.11(H) 0.00 - 0.03 K/mcL LAB HEMETOLOGY METHOD 06/06/2024 10:49 AM T [facility] Blood Venous blood specimen / Unknown Venipuncture / Unknown 06/06/2024 7:22 AM EDT 06/06/2024 9:08 AM EDT us Krishan Sotelo MD LAB BLOOD ORDERABLES Final Resul t [facility] [address] [place] [address], [place] [phone] * (ABNORMAL) Comprehensive metabolic panel (06/06/2024 7:22 AM EDT) Sodium 134 133 - 145 mmol/L LAB CHEMISTRY METHOD 06/06/2024 12:50 PM [facility] Potassium 4.0 3.5 - 5.5 mmol/L LAB CHEMISTRY METHOD 06/06/2024 12:50 PM [facility] Chloride 100 96 - 110 mmol/L LAB CHEMISTRY METHOD 06/06/2024 12:50 PM [facility] CO2 24 21 - 32 mmol/L LAB CHEMISTRY METHOD 06/06/2024 12:50 PM [facility] Anion Gap 10 3 - 11 LAB CHEMISTRY METHOD 06/06/2024 12:50 PM [facility] Glucose 146(H) 70 - 100 mg/dL LAB CHEMISTRY METHOD 06/06/2024 12:50 PM [facility] BUN 20 5 - 25 mg/dL LAB CHEMISTRY METHOD 06/06/2024 12:50 PM [facility] Creatinine 1.50(H) 0.70 - 1.30 mg/dL LAB CHEMISTRY METHOD 06/06/2024 12:50 PM [facility] eGFR 53(L) >=60 mL/min/1. 73m2 LAB CHEMISTRY METHOD 06/06/2024 12:50 PM [facility] Comment:Calculation based on the Chronic Kidney Disease Epidemiology Collaboration (CKD-EPI) equation refit without adjustment for race. BUN/Creatinine Ratio 13.3 LAB CHEMISTRY METHOD 06/06/2024 12:50 PM [facility] Calcium 9.4 8.5 - 10.5 mg/dL LAB CHEMISTRY METHOD 06/06/2024 12:50 PM [facility] AST (SGOT) 16 10 - 42 unit/L LAB CHEMISTRY METHOD 06/06/2024 12:50 PM [facility] ALT (SGPT) 15 10 - 60 unit/L LAB CHEMISTRY METHOD 06/06/2024 12:50 PM [facility] Alkaline Phosphatase 83 42 - 121 unit/L LAB CHEMISTRY METHOD 06/06/2024 12:50 PM [facility] Total Protein 7.1 6.0 - 8.0 g/dL LAB CHEMISTRY METHOD 06/06/2024 12:50 PM [facility] Albumin 3.3 3.2 - 5.0 g/dL LAB CHEMISTRY METHOD 06/06/2024 12:50 PM [facility] Total Bilirubin 0.4 0.0 - 1.4 mg/dL LAB CHEMISTRY METHOD 06/06/2024 12:50 PM [facility] Blood Venous blood specimen / Unknown Venipuncture / Unknown 06/06/2024 7:22 AM EDT 06/06/2024 9:08 AM EDT us Krishan Sotelo MD LAB BLOOD ORDERABLES Final Resul t [facility] ([facility] [address] [place] [address], [place] [phone] documented in this encounter Visit Diagnoses Diagnosis Essential (primary) hypertension Unspecified essential hypertension Type 2 diabetes mellitus without complications (CMS/[facility] V24, CMS/[facility] V28) Metabolic encephalopathy Alcohol use, unspecified with withdrawal delirium (CMS/[facility] V24, CMS/[facility] V28) documented in this encounter Care Teams Fitness Manager Relationship Specialty Start Date End Date Rita Fierro MD [address] [place] [address] PCP - General Internal Medicine 08/02/16 documented as of this encounter
--- OUTSIDE RECORDS SUMMARY | 2024-10-14 14:54 | XMS_ITS | Clinical Summary ---
Author Organization [facility] Address [address] [place] [address] Care Team Providers Care Bleach Tester Name Role Phone Rita Fierro MD Primary [...] age to complete this topic Care Teams Bleach Tester Relationship Specialty Start Date End Date Rita Fierro MD [address] [place] [address] [place] [address] PCP - General Internal Medicine 08/02/16
== END 2024-10-14 14:58 | disposition home or self-care (01) ==
LOC: HO.HVS 14:41
PROVIDERS: Visit Provider Surgery Vascular Surgery
DX: E11.621 Type 2 diabetes mellitus with foot ulcer (principal); L97.529 Non-pressure chronic ulcer of other part of left foot with unspecified severity; I83.12 Varicose veins of left lower extremity with inflammation
CPT/HCPCS: 99204; G2211

== ENCOUNTER → 2024-10-14 14:41 | Outpatient (BNVA) | payer MEDICARE, MEDICAID, SELFPAY | PROVIDERS: Visit Provider Surgery Vascular Surgery | DX: I83.024 Varicose veins of left lower extremity with ulcer of heel and midfoot (principal); E08.621 Diabetes mellitus due to underlying condition with foot ulcer; L97.429 Non-pressure chronic ulcer of left heel and midfoot with unspecified severity | CPT/HCPCS: 99202 ==

== ENCOUNTER 2024-10-25 10:31 | Outpatient (AMB) | payer MEDICARE, MEDICAID, SELFPAY ==
--- NOTE | 2024-10-25 10:33 | A.OFFPC_ITS ---
Vital Signs 3 10/25/24 10:41 Height 5 ft 11 in Weight 217 lb BMI 30.3 BP 108/68 Blood Pressure Location Rt brachial Position Sitting Respiration 15 Pulse 74 Pulse Source Pulse Oximeter Temp 98.1 F Temp Source Temporal Artery Scan Pulse Oximetry (%) 96 Oxygen Delivery Method Room Air Intake Visit Reasons: Diabetes - see comments Intake Note: Romaine presents in the office today for his diabetes. Allergies No Known Allergies Allergy (Verified 10/25/24 11:00) Medication List - Last Reconciled 10/25/24 by Maya Bullard, [employer]TER-BC acamprosate 666 mg PO TID atorvastatin (Lipitor) 10 mg PO BEDTIME blood sugar diagnostic (Accu-Chek Guide test strips) use once daily As directed to monitor blood sugars blood-glucose meter (Accu-Chek Guide Glucose Meter) Use once daily As directed to monitor blood sugars blood-glucose sensor (DexButton G7 Sensor device) Use daily As directed dulaglutide (Trulicity) 0.75 mg (0.5 mL) subcut QWEEK empagliflozin (Jardiance) 10 mg PO DAILY fluticasone propion-salmeterol 250-50 mcg/dose 1 ea inhalation BID fluticasone propionate 50 mcg/actuation 1 spray intranasal DAILY folic acid 1 mg PO DAILY insulin glargine (Lantus Solostar U-100 Insulin) 10 units subcut BEDTIME lancets (Accu-Chek Softclix Lancets) use once daily As directed to monitor blood sugars levothyroxine 200 mcg PO DAILY@0600 metformin 500 mg PO BID mometasone 0.1% 1 appl topical DAILY montelukast (Singulair) 10 mg PO DAILY omeprazole 20 mg PO DAILY@0630 pregabalin 75 mg PO BID sertraline 100 mg PO DAILY tamsulosin (Flomax) 0.4 mg PO BEDTIME Tobacco use date assessed: 10/25/24 Dental Screening Dental Screen Date: 10/25/24 Did you have a dental visit in the last 12 months?: No Did you have a dental problem in the last 6 months where you did not have access to dental care?: No Was dental information given to patient?: Patient declined HPI HPI Comments 2 History of Present Illness0 Details [facility] 59 y/o M with alcohol abuse hx of DT wit hdrawl (currently sober), CKD3, DM with complication, polyneuropathy, pulmonary hypertension, PVD with plantar ulceration on the left foot, current smoker, obesity , hx of MRSA pneumonia and hypoxic resp. failure requiring intubation, HLD, hypothyroid, LISA, MDD, GERD, CAD, anemia , Mild changes of small vessel ischemia, Hepatomegaly and steatosis, Diverticular disease, sigmoid colon, Fat-containing umbilical hernia, CHF, aortic root dilation, Hx of prostate Ca, COPD, gout, hydrocele, malignant tumor of neck s/p resction and radiation, spinal stenosis, eczema, family hx colon ca (mom), hx of osteomyelitis L foot s/p tonsillectomy, aspiratin of spermatocele Fhx: Dad with CAD, Mom with colon ca; Bro and Sister w/ cancer Health Maintenance Tdap 2024 Colon referred to [facility] today; unsure of last colon long time ago i have requested records from [facility] Lung Ca screening referred to program at [facility] today Specialists [facility] Podiatry 10/12/24 DM foot exam Optho @ [facility] 10/2024 [facility] History of Present Illness - The patient is a 59-year-old male pres enting for establishment of care. - This is a complex patient. > 500 pages of medical records were reviewed for this visit today, owing to the complexity. - History of alcohol use disorder in ear ly remission; previously required ICU admission. - Presently on acamprosate; abstaining f rom alcohol. - Coronary artery disease managed with a torvastatin. Having chest pains. Needs Cards referral. - Diabetes type 2 with complications inc luding a left foot ulcer; on insulin glargine, metformin, empagliflozin, dulaglutide. Managed by [facility] Endo. A1c UTD & improving - Significant A1c reduction: 12.5 to 6.5 over 2 years. - He needs diabetic shoes/orthotics. Act bryan w/ Podiatry, however insurance requires records from PCP. Order from podiatry as below. I agree he needs this. - History of prostate CA, on tamsulosin. Last PSA from PCP > 5 03/2023. Will update today. - Anxiety managed with sertraline and pr egabalin. - GERD managed with omeprazole. - Hypothyroidism managed with levothyrox ine. - Right neck cancer, prior treatment wit h surgery and radiation, i need records on this. - Current smoker. Review of Systems - Constitutional: Denies recent weight l oss, fever, or fatigue. - Cardiovascular: Reports history of cor onary artery disease. - Respiratory: Reported lung issues but denies ongoing respiratory symptoms. - Gastrointestinal: Reports GERD, denies current abdominal pain or changes in bowel habits. - Genitourinary: History of prostate can cer - Endocrine: Reports diabetes management . - Neurological: Denies new neurological deficits. - Psychiatric: Reports anxiety, managed with medication. - Musculoskeletal: Reports chronic foot ulcer on the left side. - Skin: Reports healing of ulcer, otherw ise no new skin changes. Physical Exam General: Well developed, well nourished, in no acute distress. Appears stated age. Head: Normocephalic, atraumatic. Eyes: Pupils are equal, round and reactive to light and accommodation. Conjunctivae are clear. Lungs: Dim throughout Heart: Regular rate and rhythm. No murmurs, click, rubs or gallops are noted. Musculoskeletal: Joints are nontender, without swelling, redness, or effusions. Pulses: Peripheral pulses are equal and palpable bilaterally. Chronic vascular changes and varicose veins BLE, DM ulcer bottom of L foot see pic below. Extremities: No clubbing, cyanosis. Trace pretibial edema LLE pt reports chronic Psych: Mood and affect appropriate. Diagnostic results Main pulmonary artery is enlarged measuring up to 3.6 cm. This can be associated with pulmonary hypertension. Coronary artery calcifications present within the LAD, circumflex and RCA. Cardiomegaly. Results Pending Discussion Notes I discussed with the patient the importance of continued abstinence from alcohol. I reviewed his current medication regimen and suggested that maintaining his current treatment for diabetes is critical, given the positive trend in his hemoglobin A1c. We discussed the progress of his chronic foot ulcer and emphasized the importance of consistent follow-up with his vascular specialist. The benefits of seeing a healthcare administrator were highlighted due to his coronary artery disease history, and the patient was agreeable to a referral. I recommended regular follow-up visits to monitor the patient's complex medical history and ensure all preventative screening, such as colonoscopies, are updated. The patient was advised to revisit a low-fat diet, increase exercise, and possibly see a smoking cessation counselor. The risks and benefits of all recommended diagnostic tests were discussed, and the patient expressed understanding and was agreeable. Patient was given time to ask questions. All questions were answered to their satisfaction. Assessment and Plan 1. Alcohol Use Disorder - Continue acomprosate 2. Coronary Artery Disease/CHF/Aortic ro ot dilation - Continue atorvastatin; refer to cardio logy. Check stress test & echo 3. Diabetes Mellitus 2 with complication - Insulin, oral medications; monitor A1c ; specialist follow up. 4. Hx of prostate CA - Continue tamsulosin. - Check psa today 5. Anxiety Disorder - Continue sertraline, pregabalin; [facility] referral. 6. Gastroesophageal Reflux - Continue omeprazole. - refer to GI 7. Hypothyroidism - Continue levothyroxine; monitor TSH. 8. Foot Ulcer, L - Cont care w/ vascular at [facility] - cont care w/ podiatry - get orthotics/dm shoes as below. 9. Right neck Cancer - Maintain oncology follow-up. - i need records on this 10. polypharmacy i have reconciled his meds; sent orders to [facility], printed a list for him and will have him meet with [facility] to ensure he is taking what is prescribed, Patient Instructions - Continue taking all prescribed medicat ions as directed. - Schedule appointments and screenings a s discussed. - Follow up in 4 weeks for reassessment. - Maintain a healthy diet and exercise r outine. - Avoid alcohol and minimize smoking. - Contact the office if any new symptoms develop or if current symptoms worsen. Consent I informed the patient of the need for further evaluation with a healthcare administrator and possible diagnostic tests such as an ultrasound and stress test. The potential risks and benefits were reviewed, and the patient expressed understanding and agreement to proceed with these measures. Consent was obtained verbally from the patient. Patient was informed and verbally consented to the use of an ambient scribe for clinic note documentation during this visit. Total time spent caring for the patient today was 120 minutes. This includes time spent before the visit reviewing the chart, time spent during the visit, and time spent after the visit on documentation, reviewing laboratory results, diagnostic imaging, medications, performing a medically necessary evaluation, counseling on diagnoses, care coordination, ordering appropriate tests, ordering appropriate medications, review of tests performed by other providers, reporting test results with the patient, communication with other healthcare providers. [facility] Medical History (Updated 10/25/24 @ 14:02 by Maya Bullard [facility]) Anxiety with depression Critical illness myopathy Diverticular disease ETOH abuse History of alcohol withdrawal delirium History of MRSA infection of lungs History of osteomyelitis Hx of gout Hydrocele Nasal septal defect Spinal stenosis Throat cancer Umbilical hernia Surgical History H/O excision of mass History of surgery on lower extremity Family History (Updated 10/25/24 @ 10:40 by Marnie Garcia) Father No problems noted. Mother No problems noted. Social History (Updated 10/25/24 @ 10:40 by Marnie Garcia) Household Members: None Housing: House Do you presently have visiting nurse or other home services: Yes Alcohol intake: current Alcohol intake frequency: 3 or more drinks per day Alcohol type: beer Comment: 1:1 sitter Patient Tobacco Use Status: Current everyday Tobacco user Tobacco use type: Cigarette Cigarettes Per Day: 10 e-Cigarette/Vaping Use: Never Used Second Hand Smoke Exposure: No service: No Cognitive needs: No Hearing needs: No Vision needs: No Questionnaire PHQ-9 Over the last 2 weeks, how often have you been bothered by any of the following problems? 1. Little interest or pleasure in doing things: not at all 2. Feeling down, depressed, or hopeless: not at all 3. Trouble falling or staying asleep, or sleeping too much: not at all 4. Feeling tired or having little energy: not at all 5. Poor appetite or overeating: not at all 6. Feeling bad about yourself - or that you are a failure or have let yourself or your family down: not at all 7. Trouble concentrating on things, such as reading the newspaper or watching television: not at all 8. Moving or speaking so slowly that other people could have noticed. Or the opposite - being so fidgety or restless that you have been moving around a lot more than usual: not at all 9. Thoughts that you would be better off or of hurting yourself in some way: not at all Total score: 0 Depression Screening Interpretation: Negative Depression Screening Done: Yes 82708 - PHQ-9 Billing: Yes Source: Developed by Drs. Darin Kim, Donna Higgins, Jose Nicole and colleagues, with an educational felisha from [employer]. Thrive Questionnaire Date Thrive assessed: 10/25/24 I am a: Patient What is your living situation today?: I have a steady place to live Within the past 12 months, did the food you bought not last and you didn't have the money to get more?: Often true Within the past 12 months, did you worry whether your food would run out before you got money to buy more?: Often true Do you have trouble paying for medicines?: Yes Do you have trouble getting transportation to medical appointments?: Yes Do you have trouble paying your heating and electricity bill?: Yes Do you have trouble taking care of your child, family member or friend?: No Do you have trouble with day-to-day activities such as bathing, preparing meals, shopping, managing finances, etc.?: No Are you currently unemployed and looking for a job?: Yes Are you interested in more education?: Yes Please select the resources that you would like help with: Food, Utilities and Education Currently or been in a relationship where the following occur: No concerns reported THRIVE Score: 4 AUDIT C Alcohol Use Questionnaire (AUDIT-C) 1. How often do you have a drink containing alcohol?: Never 2. How many drinks containing alcohol do you have on a typical day when you are drinking?: 1 or 2 3. How often do you have six or more drinks on one occasion?: Never Total Score: 0 Score Reviewed/Action Taken: Yes LISA-7 AMB Questionnaire LISA-7 Date LISA - 7 assessed: 10/25/24 Feeling nervous, anxious, or on edge: 0 = Not at all Not being able to stop or control worryin = Not at all Worrying too much about different things: 0 = Not at all Trouble relaxin = Not at all Being so restless that it is hard to sit still: 0 = Not at all Becoming easily annoyed or irritable: 1 = Several days Feeling afraid as if something awful might happen: 0 = Not at all Total LISA-7 score (0-4 normal; 5-9 mild; 10-14 moderate; 15-21 severe): 1 Source: Developed by Drs. Darin Kim, Donna Higgins, Jose Nicole and colleagues, with an educational felisha from [employer]. LISA-7 Assessment Billing LISA-7 Assessment Tool: LISA-7 Assessment 48440 Physical exam (Primary Care) Vital Signs: Last Vital Signs Temp 98.1 F 10/25/24 10:41 Pulse 74 10/25/24 10:41 Resp 15 10/25/24 10:41 BP 108/68 10/25/24 10:41 Pulse Ox 96 10/25/24 10:41 Oxygen Delivery Method Room Air 10/25/24 10:41 BMI result Body Mass Index 30.3 BMI Assessment/Plan discussion: High BMI High, discussed plan: lifestyle Tobacco/Smoking Status: Tobacco use Status Tobacco use date assessed 10/25/24 10/25/24 10:43 Patient Tobacco Use Status Current everyday Tobacco 10/25/24 10:40 Tobacco use type Cigarette 10/25/24 10:40 e-Cigarette/Vaping Use Never Used 10/25/24 10:40 Are you ready to quit: No Tobacco cessation counseling provided: Yes Items discussed: Nicotine replacement, QuitWorks and Other Relapse Prevention: discussed the importance of a supportive environment, discussed extending NRT, discussed negative mood or depression after quitting, weight gain after smoking is common and discussed dietary, exercise and/or lifestyle changes Number of minutes spent counselin CPT code: 28851 - 4-10 Minutes PHQ-9: PHQ-9 Score PHQ-9: Total score 0 10/25/24 10:59 Depression Screening Interpretation: Negative Thrive Assessment: Date of Thrive Assessment Date Thrive assessed 10/25/24 10/25/24 10:43 Currently or been in a relationship where the following occur: No concerns reported Results Reviewed Results Reviewed: Coding Level of Care Code New Pt Level 5 (57181) Complex EM visit Add On G2211 Diagnoses Encounter to establish care with new provider Z76.89 Alcohol abuse, in remission F10.11 Encounter for diabetic foot exam E11.9 Diabetic eye exam Z01.00; E11.9 Current smoker F17.200 Diabetes mellitus with complication E11.8 Atherosclerosis of [place] artery of left lower extremity with ulceration of other part of foot I70.245 Peripheral atherosclerosis location: lower extremity Peripheral atherosclerosis artery type: [place] artery Laterality: left Lower extremity ulceration location: other part of foot Coronary artery disease of [place] artery of [place] heart with stable angina pectoris I25.118 Coronary Disease-Associated Artery/Lesion type: [place] artery [place] vs. 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810 Panlobular emphysema J43.1 COPD type: emphysema Emphysema type: panlobular Malignant tumor of neck C76.0 Family history of colon cancer in mother Z80.0 Encounter for screening involving social determinants of health (SDoH) Z13.9 CPT Codes PROLONG OUTPT/OFFICE VIS - G2212 Additional Codes LISA-7 Assessment Billing - LISA-7 Assessment Tool: LISA-7 Assessment 51281 ([id number]) PHQ-9 - 89765 - PHQ-9 Billing: Yes ([id number]) Vital Signs *Quality* - CPT code: 71998 - 4-10 Minutes ([id number]) Assessment & Plan Assessment & Plan (1) Encounter to establish care with new provider: Code(s): Z76.89 - Persons encountering health services in other specified circumstances Category: Medical (2) Alcohol abuse, in remission: Code(s): F10.11 - Alcohol abuse, in remission Category: Medical (3) Encounter for diabetic foot exam: Onset Date: ~10/2024 Comment: dr sorto Code(s): E11.9 - Type 2 diabetes mellitus without complications Category: Medical (4) Diabetic eye exam: Onset Date: ~10/2024 Comment: Anisha cooper requested Code(s): Z01.00 - Encounter for examination of eyes and vision without abnormal findings; E11.9 - Type 2 diabetes mellitus without complications Category: Medical (5) Current smoker: Comment: referred to lung ca screening Code(s): F17.200 - Nicotine dependence, unspecified, uncomplicated Category: Social Hx (6) Diabetes mellitus with complication: Comment: ulcer and cad Code(s): E11.8 - Type 2 diabetes mellitus with unspecified complications Category: Medical (7) Atherosclerosis of extremity with ulceration: Code(s): I70.209 - Unspecified atherosclerosis of [place] arteries of extremities, unspecified extremity; L98.499 - Non-pressure chronic ulcer of skin of other sites with unspecified severity Category: Medical Qualifiers: Peripheral atherosclerosis location: lower extremity Peripheral atherosclerosis artery type: [place] artery Laterality: left Lower extremity ulceration location: other part of foot Qualified Code(s): I70.245 - Atherosclerosis of [place] arteries of left leg with ulceration of other part of foot (8) CAD (coronary artery disease): Code(s): I25.10 - Atherosclerotic heart disease of [place] coronary artery without angina pectoris Category: Medical Qualifiers: Coronary Disease-Associated Artery/Lesion type: [place] artery [place] vs. transplanted heart: [place] heart Associated angina: with stable angina Q ualified Code(s): I25.118 - Atherosclerotic heart disease of [place] coronary artery with other forms of angina pectoris (9) Pulmonary HTN: Code(s): I27.20 - Pulmonary hypertension, unspecified Category: Medical (10) Diastolic heart failure: Code(s): I50.30 - Unspecified diastolic (congestive) heart failure Category: Medical Qualifiers: Heart failure chronicity: chronic Qualified Code(s): I50.32 - Chronic diastolic (congestive) heart failure (11) Chest pain: Code(s): R07.9 - Chest pain, unspecified Category: Medical Qualifiers: Chest pain type: unspecified Qualified Code(s): R07.9 - Chest pain, unspecified (12) Hypothyroid: Code(s): E03.9 - Hypothyroidism, unspecified Category: Medical Qualifiers: Hypothyroidism type: due to Arnav's thyroiditis Qualified Code(s): E06.3 - Autoimmune thyroiditis (13) HTN (hypertension): Code(s): I10 - Essential (primary) hypertension Category: Medical Qualifiers: Hypertension type: secondary to endocrine disorders Qualified Code(s): I15.2 - Hypertension secondary to endocrine disorders (14) Prostate CA: Code(s): C61 - Malignant neoplasm of prostate Category: Medical (15) Anemia: Code(s): D64.9 - Anemia, unspecified Category: Medical Qualifiers: Anemia type: other cause (16) MDD (major depressive disorder), recurrent episode: Code(s): F33.9 - Major depressive disorder, recurrent, unspecified Category: Medical Qualifiers: Major depression episode severity: moderate Qualified Code(s): F33.1 - Major depressive disorder, recurrent, moderate (17) LISA (generalized anxiety disorder): Code(s): F41.1 - Generalized anxiety disorder Category: Medical (18) CKD stage 3 secondary to diabetes: Code(s): E11.22 - Type 2 diabetes mellitus with diabetic chronic kidney disease; N18.30 - Chronic kidney disease, stage 3 unspecified Category: Medical (19) Obesity (BMI 30-39.9): Code(s): E66.9 - Obesity, unspecified Category: Medical (20) GERD (gastroesophageal reflux disease): Code(s): K21.9 - Gastro-esophageal reflux disease without esophagitis Category: Medical Qualifiers: Esophagitis presence: without esophagitis Qualified Code(s): K21.9 - Gastro-esophageal reflux disease without esophagitis (21) Hepatomegaly: Code(s): R16.0 - Hepatomegaly, not elsewhere classified Category: Medical (22) Fatty liver, alcoholic: Code(s): K70.0 - Alcoholic fatty liver Category: Medical (23) Aortic root dilatation: Code(s): I77.810 - Thoracic aortic ectasia Category: Medical (24) COPD (chronic obstructive pulmonary disease): Code(s): J44.9 - Chronic obstructive pulmonary disease, unspecified Category: Medical Qualifiers: COPD type: emphysema Emphysema type: panlobular Qualified Code(s): J 43.1 - Panlobular emphysema (25) Malignant tumor of neck: Comment: s/p resection and radiation Code(s): C76.0 - Malignant neoplasm of head, face and neck Category: Medical (26) Family history of colon cancer in mother: Code(s): Z80.0 - Family history of malignant neoplasm of digestive organs Category: Medical (27) Encounter for screening involving social determinants of health (SDoH): Code(s): Z13.9 - Encounter for screening, unspecified Category: Medical Plan . Orders: Orders 2 Complete Blood Count no Diff Today E03.9 - Hypothyroidism, unspecified, I10 - Essential (primary) hypertension Ferritin Today E03.9 - Hypothyroidism, unspecified, I10 - Essential (primary) hypertension Lipid Panel Today E03.9 - Hypothyroidism, unspecified, I10 - Essential (primary) hypertension Vitamin B12 and Folate Today E03.9 - Hypothyroidism, unspecified, I10 - Essential (primary) hypertension NM cardiolite stress test Today I25.10 - Atherosclerotic heart disease of [place] coronary artery without angina pectoris, I27.20 - Pulmonary hypertension, unspecified, I50.30 - Unspecified diastolic (congestive) heart failure, R07.9 - Chest pain, unspecified CA stress test Today I25.10 - Atherosclerotic heart disease of [place] coronary artery without angina pectoris, I27.20 - Pulmonary hypertension, unspecified, I50.30 - Unspecified diastolic (congestive) heart failure, R07.9 - Chest pain, unspecified CA echo transthoracic complete Today I25.10 - Atherosclerotic heart disease of [place] coronary artery without angina pectoris, I27.20 - Pulmonary hypertension, unspecified, I50.30 - Unspecified diastolic (congestive) heart failure, R07.9 - Chest pain, unspecified IRON PROFILE Today E03.9 - Hypothyroidism, unspecified, I10 - Essential (primary) hypertension Prostate Specific Antigen Scr Today E03.9 - Hypothyroidism, unspecified, I10 - Essential (primary) hypertension Referrals 2 Nurse Navigator Referral Z13.9 - Encounter for screening, unspecified Cardiology Referral I25.10 - Atherosclerotic heart disease of [place] coronary artery without angina pectoris, I27.20 - Pulmonary hypertension, unspecified, I50.30 - Unspecified diastolic (congestive) heart failure Gastroenterology Referral D64.9 - Anemia, unspecified, Z12.11 - Encounter for screening for malignant neoplasm of colon Lung Cancer Screening Referral F17.200 - Nicotine dependence, unspecified, uncomplicated Medications: New 2 fluticasone propionate 50 mcg/actuation 1 spray intranasal DAILY 16 grams 12RF omeprazole 20 mg PO DAILY@0630 90 caps 2RF acamprosate 666 mg (2 x 333 mg) PO TID 540 tabs 2RF folic acid 1 mg PO DAILY 90 tabs 2RF tamsulosin (Flomax) 0.4 mg PO BEDTIME 90 caps 2RF fluticasone propion-salmeterol 250-50 mcg/dose 1 ea inhalation BID 60 ea 12RF levothyroxine 200 mcg PO DAILY@0600 90 tabs 2RF pregabalin 75 mg PO BID 180 caps 2RF montelukast (Singulair) 10 mg PO DAILY 90 tabs 2RF sertraline 100 mg PO DAILY 90 tabs 2RF Patient Instructions: Walk-In Care (Urgent Care): We Make it Easy Walk-in for urgent medical issues such as: ? Seasonal Allergies ? Insect Bites ? Cough ? Diarrhea ? Acute Asthma Attacks ? Back, Knee or Joint Pain ? Ear Infection ? Fever without a Rash ? Headaches ? Nausea ? Guerra Eye, Rash or Skin Irritation ? Sore Throat ? Sports Physicals ? Vomiting Most insurances are accepted. Patients do not need to be part of the [facility] to seek care at the walk-in clinic. Locations [facility] , [place] [address] ? [phone] [facility] in [place] provides services to ages 18 and over. Open Thursday-Thursday: 7 a.m. to 5 p.m. and Thursday: 9 a.m. to 3 p.m.* *Hours may vary due to staffing availability. To confirm Walk-In Care hours in [place], please call [phone]. [address] [place] [address] ? [phone] [facility] in [place] provides services to ages 12 and over. Open Thursday-Thursday: 8 a.m. to 5 p.m. Hours may vary due to staffing availability. To confirm Walk-In Care hours in [place], please call [phone]. LABORATORY SERVICES: [facility] Lab ? Primary Location [address] [place] [address] Thursday through Thursday 6:00 AM ? 5:00 PM Thursday 7:00 AM ? 11:00 AM* [phone] The [facility] Lab is centrally located near the front entrance of the [facility] for easy outpatient access. Convenient parking is provided for outpatients. *Hours may vary due to staffing availability. To confirm Laboratory hours for any location, please call [phone]. Offsite Location For your convenience, we offer offsite laboratory draw stations at the following locations: [address] [place] [address] [address], [address], [place] Thursday through Thursday 7:30 AM ? 1:00 PM* [phone] *Hours may vary due to staffing availability. To confirm Laboratory hours for any location, please call [phone]. [place] ? [facility] [address] [facility] [place] Thursday through Thursday 6:00 AM ? 3:30 PM* Thursday 6:30 AM ? 3 PM* [phone] *Hours may vary due to staffing availability. To confirm Laboratory hours for any location, please call [phone]. [address] [facility] Thursday through Thursday 7:30 AM ? 4:00 PM* [phone] *Hours may vary due to staffing availability. To confirm Laboratory hours for any location, please call [phone] [place] [address] Thursday through 9:00 AM ? 4:00 PM* *Hours may vary due to staffing availability. To confirm Laboratory hours for any location, please call [phone]. Appointments are not necessary. Walk-ins are welcome. Like all the departments throughout the [facility], our Lab undergoes frequent reviews to ensure the quality and accuracy of test results, and our staff takes special pride in its status as a nationally accredited facility. Patient Portal: [facility] ONE PATIENT. ONE RECORD. BETTER CARE. [facility] has a fully integrated, cutting- edge mobile electronic health information system that has revolutionized the way we care for our patients and manage our organization. This system improves communication and coordination enabling us to provide safe, higher-quality care, and an overall positive experience for staff and patients. Our first priority, as always, is to deliver the highest quality care possible. The system is running in the background supporting that priority. This portal is for all [facility] services and practices. If you are experiencing any technical difficulties with enrolling or logging into the Patient Portal please complete the [facility] Patient Portal Technical Support Form. [facility] now offers a new secure on-line interactive tool for patients to review their health information ? ?Patient Portal. This interactive web portal will enable patients and their families to take an active role in their care by providing easy, secure access to their health information via the internet. The Patient Portal provides patients with instant access to their health information, including laboratory results, medications, allergies, demographic information, visit history, and more. In addition to managing their own care, parents and health care proxies with authorized consent will appreciate the ability to access the records of those individuals for whom they provide care. Please note: if you wish to gain access (Proxy) to another patient?s portal, you will be required to come to the Medical Records Department in person at [facility]. Both the patient giving proxy access and the proxy will need to provide photo identification and complete the appropriate authorization. The Patient Portal also allows track their appointments online. The [facility] Patient Portal also saves patients time by allowing them to submit updates to their demographic and contact information prior to their visits. Portal email notifications will also alert patients to any new activity on their portal, such as test results and new appointments. In order to initially enroll in the [facility] Patient Portal, you will need to enter some required information including the following: * your [facility] Medical Record number * your personal home email address * name * date of Please note: In order to enroll in the [facility] Patient Portal, we need to have your email address on file in your electronic medical record. ?The email address needs to be specific for one person (yourself) in order for your Portal enrollment to be successful. ?You can update your email address in person with our Registration staff when you are registering for a hospital visit. ?Otherwise, you will need to come to the Health Information Management (Medical Records) Department at [facility]. ?We are open from Thursday ? Thursday from 7:30 a.m. ? 4:30 p.m. ?You will be required to present a photo id. Once you have successfully enrolled in the Patient Portal, you will receive a one-time user id and password for the Portal, sent to your email address. ?This will allow you to log into the Patient Portal within 99 hrs and reset your own logon id and password, and define personal security questions. ?Once your permanent login and password have been set, you can log into the [facility] Patient Portal at any time via the blue button above or from the Portal Logon button on any page of the [facility] website. [facility] encourage all of our patients to enroll in Patient Portal as it presents a valuable opportunity for patients and their families to actively participate in their care and stay healthy Welcome to [facility]. ?We look forward to working with you.
[2024-10-25 10:41] VITALS: BP 108/68; PULSE 74; RESP 15; TEMP 36.7; O2SAT 96; BMI 30.3
--- OUTSIDE RECORDS SUMMARY | 2024-10-25 13:45 | XMS_ITS | Clinical Summary ---
Author Organization [employer] Address [address] [facility] [address] [place] [address] Care Team Providers Care Car Seat Upholsterer Name Role Phone Unavailable Primary Care Provider Unavailabl e Encounters Date Type Department Care Team Description 07/25/[address] [facility] [address] [place] [address] Julián Pineda MD CHW - New Patient [...] patient's age to complete this topic Insurance [facility] MEDIC[facility] ADV[facility]AGE
--- OUTSIDE RECORDS SUMMARY | 2024-10-25 13:45 | XMS_ITS | Encounter Summary ---
Author Organization [facility] Address [address] [place] [address] Care Team Providers Care Buyer Intern Name Role Phone Rita Fierro MD Primary Care Provide r Encounter Details Date Type Department Care Team (Late st Contact Info) Description 06/06/2024 Lab Requisition [facility] Lab [address] [facility] [place] [address] Krishan Sotelo MD [address] [place] [address] [address] [facility] [phone] Essential (primary) hypertension; Type 2 diabetes [...] 2 diabetes mellitus without complications (CMS/HCC V24, [facility] V28) Metabolic encephalopathy Alcohol use, unspecified with withdrawal delirium ([facility] V24, [facility] V28) COMPREHENSIVE METABOLIC PANEL Routine 06/06/2024 7:22 AM EDT Essential (primary) hypertension Type 2 diabetes mellitus without complications ([facility] V24, [facility] V28) Metabolic encephalopathy Alcohol use, unspecified with withdrawal delirium ([facility] V24, [facility] V28) documented in this encounter Results * (ABNORMAL) CBC auto differential (06/06/2024 7:22 AM EDT) [facility] WBC 9.4 4.8 - 10.8 K/mcL LAB HEMETOLOGY METHOD 06/06/2024 10:49 AM [facility] RBC 2.80(L) 4.50 - 5.50 M/mcL LAB HEMETOLOGY METHOD 06/06/2024 10:49 AM [facility] Hemoglobin 9.2(L) 13.5 - 17.5 g/dL LAB HEMETOLOGY METHOD 06/06/2024 10:49 AM [facility] LAB Hematocrit 28.4(L) 42.0 - 54.0 % LAB HEMETOLOGY METHOD 06/06/2024 10:49 AM [facility] LAB MCV 102.9(H) 79.0 - 98.0 FL LAB HEMETOLOGY METHOD 06/06/2024 10:49 AM [facility] LAB MCH 33.3(H) 27.0 - 32.0 pcg LAB HEMETOLOGY METHOD 06/06/2024 10:49 AM [facility] LAB MCHC 32.4 32.0 - 37.0 g/dL LAB HEMETOLOGY METHOD 06/06/2024 10:49 AM [facility] RDW 15.5(H) 11.0 - 15.0 % LAB HEMETOLOGY METHOD 06/06/2024 10:49 AM [facility] LAB Platelets 505(H) 130 - 400 K/mcL LAB HEMETOLOGY METHOD 06/06/2024 10:49 AM [facility] LAB MPV 10.2 7.0 - 11.0 FL LAB HEMETOLOGY METHOD 06/06/2024 10:49 AM [facility] LAB NRBC 0.0 <1.0 % LAB HEMETOLOGY METHOD 06/06/2024 10:49 AM [facility] LAB NRBC Absolute 0.00 <0.10 K/mcL LAB HEMETOLOGY METHOD 06/06/2024 10:49 AM [facility] LAB Neutrophils Relative 71.0 % LAB HEMETOLOGY METHOD 06/06/2024 10:49 AM [facility] Lymphocytes Relative 13.6 % LAB HEMETOLOGY METHOD 06/06/2024 10:49 AM [facility] Monocytes Relative 7.0 % LAB HEMETOLOGY METHOD 06/06/2024 10:49 AM [facility] Eosinophils Relative 6.1 % LAB HEMETOLOGY METHOD 06/06/2024 10:49 AM [facility] Basophils Relative 1.1 % LAB HEMETOLOGY METHOD 06/06/2024 10:49 AM [facility] Immature Granulocytes Relative 1.2 % LAB HEMETOLOGY METHOD 06/06/2024 10:49 AM [facility] Neutrophils Absolute 6.66 1.50 - 7.00 K/mcL LAB HEMETOLOGY METHOD 06/06/2024 10:49 AM [facility] Lymphocytes Absolute 1.28 1.00 - 5.00 K/mcL LAB HEMETOLOGY METHOD 06/06/2024 10:49 AM [facility] Monocytes Absolute 0.66 0.20 - 1.00 K/mcL LAB HEMETOLOGY METHOD 06/06/2024 10:49 AM EDT [facility] Eosinophils Absolute 0.57(H) 0.00 - 0.50 K/mcL LAB HEMETOLOGY METHOD 06/06/2024 10:49 AM T [facility] LAB Basophils Absolute 0.10 0.00 - 0.20 K/mcL LAB HEMETOLOGY METHOD 06/06/2024 10:49 AM EDT [facility] Immature Granulocytes Absolute 0.11(H) 0.00 - 0.03 K/mcL LAB HEMETOLOGY METHOD 06/06/2024 10:49 AM T [facility] Blood Venous blood specimen / Unknown Venipuncture / Unknown 06/06/2024 7:22 AM EDT 06/06/2024 9:08 AM EDT us Krishan Sotelo MD LAB BLOOD ORDERABLES Final Resul t [facility] [address] [place] [address], [place] [phone] * (ABNORMAL) Comprehensive metabolic panel (06/06/2024 7:22 AM EDT) Sodium 134 133 - 145 mmol/L LAB CHEMISTRY METHOD 06/06/2024 12:50 PM [facility] Potassium 4.0 3.5 - 5.5 mmol/L LAB CHEMISTRY METHOD 06/06/2024 12:50 PM [facility] Chloride 100 96 - 110 mmol/L LAB CHEMISTRY METHOD 06/06/2024 12:50 PM [facility] CO2 24 21 - 32 mmol/L LAB CHEMISTRY METHOD 06/06/2024 12:50 PM [facility] Anion Gap 10 3 - 11 LAB CHEMISTRY METHOD 06/06/2024 12:50 PM [facility] Glucose 146(H) 70 - 100 mg/dL LAB CHEMISTRY METHOD 06/06/2024 12:50 PM [facility] BUN 20 5 - 25 mg/dL LAB CHEMISTRY METHOD 06/06/2024 12:50 PM [facility] Creatinine 1.50(H) 0.70 - 1.30 mg/dL LAB CHEMISTRY METHOD 06/06/2024 12:50 PM [facility] eGFR 53(L) >=60 mL/min/1. 73m2 LAB CHEMISTRY METHOD 06/06/2024 12:50 PM [facility] Comment:Calculation based on the Chronic Kidney Disease Epidemiology Collaboration (CKD-EPI) equation refit without adjustment for race. BUN/Creatinine Ratio 13.3 LAB CHEMISTRY METHOD 06/06/2024 12:50 PM [facility] Calcium 9.4 8.5 - 10.5 mg/dL LAB CHEMISTRY METHOD 06/06/2024 12:50 PM [facility] AST (SGOT) 16 10 - 42 unit/L LAB CHEMISTRY METHOD 06/06/2024 12:50 PM [facility] ALT (SGPT) 15 10 - 60 unit/L LAB CHEMISTRY METHOD 06/06/2024 12:50 PM [facility] Alkaline Phosphatase 83 42 - 121 unit/L LAB CHEMISTRY METHOD 06/06/2024 12:50 PM [facility] Total Protein 7.1 6.0 - 8.0 g/dL LAB CHEMISTRY METHOD 06/06/2024 12:50 PM [facility] Albumin 3.3 3.2 - 5.0 g/dL LAB CHEMISTRY METHOD 06/06/2024 12:50 PM [facility] Total Bilirubin 0.4 0.0 - 1.4 mg/dL LAB CHEMISTRY METHOD 06/06/2024 12:50 PM [facility] Blood Venous blood specimen / Unknown Venipuncture / Unknown 06/06/2024 7:22 AM EDT 06/06/2024 9:08 AM EDT us Krishan Sotelo MD LAB BLOOD ORDERABLES Final Resul t [facility] [address] [place] [address], [place] [phone] documented in this encounter Visit Diagnoses Diagnosis Essential (primary) hypertension Unspecified essential hypertension Type 2 diabetes mellitus without complications ([facility] V24, [facility] V28) Metabolic encephalopathy Alcohol use, unspecified with withdrawal delirium ([facility] V24, [facility] V28) documented in this encounter Care Teams Buyer Intern Relationship Specialty Start Date End Date Rita Fierro MD [address] [place] [address] PCP - General Internal Medicine 08/02/16 documented as of this encounter
--- OUTSIDE RECORDS SUMMARY | 2024-10-25 13:45 | XMS_ITS | Clinical Summary ---
Author Organization [address] [facility] Address [address] [place] [address] Phone Care Team Providers Care Debate Director Name Role Phone Rita Fierro MD Primary [...] EDT Type 2 diabetes mellitus without complications ([facility] V24, [facility] V28) COMPREHENSIVE METABOLIC PANEL Routine 06/06/2024 7:22 AM EDT Essential (primary) hypertension Type 2 diabetes mellitus without complications ([facility] V24, [facility] V28) Metabolic encephalopathy Alcohol use, unspecified with withdrawal delirium ([facility] V24, [facility] V28) from Last 3 Months or Most Recently Relevant to Health Maintenance Results * (ABNORMAL) Hemoglobin A1c (06/08/2024 7:34 AM EDT) Hemoglobin A1C 7.1(H) <6.5 % LAB CHEMISTRY METHOD 06/08/2024 12:47 PM EDT [facility] Mean Bld Glu Estim. 157 mg/dL LAB CHEMISTRY METHOD 06/08/2024 12:47 PM EDT [facility] Blood Venous blood specimen / Unknown Venipuncture / Unknown 06/08/2024 7:34 AM EDT 06/08/2024 10:04 AM EDT us Krishan Sotelo MD LAB BLOOD ORDERABLES Final Resul t [facility] [address] [place] [address], * (ABNORMAL) Comprehensive metabolic panel (06/06/2024 7:22 AM EDT) Sodium 134 133 - 145 mmol/L LAB CHEMISTRY METHOD 06/06/2024 12:50 PM EDT [facility] Potassium 4.0 3.5 - 5.5 mmol/L LAB CHEMISTRY METHOD 06/06/2024 12:50 PM EDT [facility] Chloride 100 96 - 110 mmol/L LAB CHEMISTRY METHOD 06/06/2024 12:50 PM [facility] CO2 24 21 - 32 mmol/L LAB CHEMISTRY METHOD 06/06/2024 12:50 PM [facility] Anion Gap 10 3 - 11 LAB CHEMISTRY METHOD 06/06/2024 12:50 PM [facility] Glucose 146(H) 70 - 100 mg/dL LAB CHEMISTRY METHOD 06/06/2024 12:50 PM [facility] BUN 20 5 - 25 mg/dL LAB CHEMISTRY METHOD 06/06/2024 12:50 PM [facility] Creatinine 1.50(H) 0.70 - 1.30 mg/dL LAB CHEMISTRY METHOD 06/06/2024 12:50 PM [facility] eGFR 53(L) >=60 mL/min/1. 73m2 LAB CHEMISTRY METHOD 06/06/2024 12:50 PM [facility] Comment:Calculation based on the Chronic Kidney Disease Epidemiology Collaboration (CKD-EPI) equation refit without adjustment for race. BUN/Creatinine Ratio 13.3 LAB CHEMISTRY METHOD 06/06/2024 12:50 PM [facility] Calcium 9.4 8.5 - 10.5 mg/dL LAB CHEMISTRY METHOD 06/06/2024 12:50 PM [facility] AST (SGOT) 16 10 - 42 unit/L LAB CHEMISTRY METHOD 06/06/2024 12:50 PM [facility] ALT (SGPT) 15 10 - 60 unit/L LAB CHEMISTRY METHOD 06/06/2024 12:50 PM [facility] Alkaline Phosphatase 83 42 - 121 unit/L LAB CHEMISTRY METHOD 06/06/2024 12:50 PM [facility] Total Protein 7.1 6.0 - 8.0 g/dL LAB CHEMISTRY METHOD 06/06/2024 12:50 PM [facility] Albumin 3.3 3.2 - 5.0 g/dL LAB CHEMISTRY METHOD 06/06/2024 12:50 PM EDT [facility] Total Bilirubin 0.4 0.0 - 1.4 mg/dL LAB CHEMISTRY METHOD 06/06/2024 12:50 PM EDT [facility] Blood Venous blood specimen / Unknown Venipuncture / Unknown 06/06/2024 7:22 AM EDT 06/06/2024 9:08 AM EDT us Krishan Sotelo MD LAB BLOOD ORDERABLES Final Resul t 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
--- OUTSIDE RECORDS SUMMARY | 2024-10-25 13:45 | XMS_ITS | Encounter Summary ---
Author Organization [facility] Address [address] [place] [address] Care Team Providers Care Press Tender Star Signal Name Role Phone Rita Fierro MD Primary Care Provide r Encounter Details Date Type Department Care Team (Late st Contact Info) Description 06/08/2024 Lab Requisition [facility] - Main Lab [address] [facility] [place] [address] Krishan Sotelo MD [address] [place] [address] [address] [place], [phone] Type 2 diabetes mellitus without complications [...] mellitus without complications (CMS/HCC V24, CMS/[facility] V28) documented in this encounter Results * (ABNORMAL) Hemoglobin A1c (06/08/2024 7:34 AM EDT) Hemoglobin A1C 7.1(H) <6.5 % LAB CHEMISTRY METHOD 06/08/2024 12:47 PM EDT [facility] Mean Bld Glu Estim. 157 mg/dL LAB CHEMISTRY METHOD 06/08/2024 12:47 PM EDT [facility] Blood Venous blood specimen / Unknown Venipuncture / Unknown 06/08/2024 7:34 AM EDT 06/08/2024 10:04 AM EDT us Krishan Sotelo MD LAB BLOOD ORDERABLES Final Resul t [facility] [address] [place] [address], documented in this encounter Visit Diagnoses Diagnosis Type 2 diabetes mellitus without complications (CMS/HCC V24, CMS/HCC V28) documented in this encounter Care Teams Press Tender Star Signal Relationship Specialty Start Date End Date Rita Fierro MD [address] [place] [address] [place] PCP - General Internal Medicine 08/02/16 documented as of this encounter
--- OUTSIDE RECORDS SUMMARY | 2024-10-25 13:46 | XMS_ITS | Clinical Summary ---
Author Organization [facility] Address [address] [address] Care Team Providers Care Kineseologist Name Role Phone Rita Fierro MD Primary [...] patient's age to complete this topic Insurance [facility] [place] [phone] Care Teams Kineseologist Relationship Specialty Start Date End Date Rita Fierro MD [facility] [address] [place] [address] [address] [place], [place] PCP - General 02/20/20
--- OUTSIDE RECORDS SUMMARY | 2024-10-25 13:46 | XMS_ITS | Clinical Summary ---
Author Organization [facility] Address [address] [place] [address] Phone Care Team Providers Care Cad Drafter Name Role Phone Rita Fierro MD Primary [...] topic Medical Devices Not on file [place] [address] [place] [address] CARE MEDICARE REPLACEMENT [facility] MEDICARE [place] [place] [address] CARE [address] [place] [place] [address] CARE MEDICARE REPLACEMENT [facility] CARE MEDICARE REPLACEMENT [facility] CARE MEDICARE REPLACEMENT [facility] MEDICARE REPLACEMENT [facility] CARE MEDICARE REPLACEMENT [facility] MEDICARE REPLACEMENT JULIET VALDIVIA [facility] Advance Directives For more information, please contact: [phone] (9AM - 5PM [facility], Thursday-Thursday) Documents on File Type Date 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 It is not the complete legal health record.[facility]
== END 2024-10-25 11:30 | disposition home or self-care (01) ==
LOC: HO.HMCFM 10:31
PROVIDERS: PCP Nurse Practitioner Family; Visit Provider Nurse Practitioner Family
DX: F10.11 Alcohol abuse, in remission (principal); E11.8 Type 2 diabetes mellitus with unspecified complications; F17.200 Nicotine dependence, unspecified, uncomplicated; I70.245 Atherosclerosis of native arteries of left leg with ulceration of other part of foot; I25.118 Atherosclerotic heart disease of native coronary artery with other forms of angina pectoris; I27.20 Pulmonary hypertension, unspecified; I50.32 Chronic diastolic (congestive) heart failure; R07.9 Chest pain, unspecified; C61 Malignant neoplasm of prostate; F33.1 Major depressive disorder, recurrent, moderate; E11.22 Type 2 diabetes mellitus with diabetic chronic kidney disease; N18.30 Chronic kidney disease, stage 3 unspecified; I15.2 Hypertension secondary to endocrine disorders; E06.3 Autoimmune thyroiditis; D64.9 Anemia, unspecified; F41.1 Generalized anxiety disorder; E66.9 Obesity, unspecified; K21.9 Gastro-esophageal reflux disease without esophagitis

== ENCOUNTER 2024-10-25 10:31 | Outpatient (REF) | payer MEDICARE, MEDICAID, SELFPAY ==
[2024-10-25 14:34] LABS: Hematocrit 37.0 % (42.0-52.0); Hemoglobin 11.7 g/dl (14.0-18.0); Mean Corpuscular HGB Conc 31.6 g/dl (31.0-36.0); Mean Corpuscular Hemoglobin 28.1 pg (27.0-33.0); Mean Corpuscular Volume 88.9 fL (80.0-98.0); NRBC Abs Auto 0.000 X10*3/uL (0.0-0.012); NRBC Pct Auto 0.0 /100WBC (0.0-0.2); Platelet Count 271 X10*3/uL (160-400); Red Blood Count 4.16 X10*6/uL (4.60-5.80); White Blood Count 9.0 X10*3/uL (4.8-10.8)
[2024-10-25 14:47] LABS: Alanine Aminotransferase 43 U/L (0-40); Albumin Level 4.4 g/dL (3.5-5.0); Alkaline Phosphatase 106 U/L (39-117); Anion Gap 12 (12-20); Aspartate Amino Transferase 33 U/L (5-37); Blood Urea Nitrogen 32 mg/dL (9-16); Calcium 9.0 mg/dL (8.4-10.2); Carbon Dioxide 25 mmol/L (22-29); Chloride 105 mmol/L (96-108); Cholesterol 160 mg/dL (<200); Estimated Glomerular Filt Rate 41; HDL Cholesterol 28 mg/dL (>40); Iron 65 mcg/dL (45-160); Percent Iron Saturation 19 % (15-50); Potassium 4.6 mmol/L (3.3-5.1); Sodium 137 mmol/L (135-145); Total Iron Binding Capacity 340 mcg/dL (228-428); Total Protein 7.3 g/dL (6.5-8.0); Triglycerides 254 mg/dL (<150); Unsaturated Iron Binding 275 ug/dL
[2024-10-25 15:00] LABS: Anion Gap 11 (12-20); Blood Urea Nitrogen 32 mg/dL (9-16); Calcium 9.1 mg/dL (8.4-10.2); Carbon Dioxide 25 mmol/L (22-29); Chloride 106 mmol/L (96-108); Estimated Glomerular Filt Rate 42; Potassium 4.6 mmol/L (3.3-5.1); Sodium 137 mmol/L (135-145)
[2024-10-25 15:11] LABS: Ferritin 21 ng/mL (20-250)
[2024-10-25 15:40] LABS: Folate 11.0 ng/mL (> or = 4.0); Vitamin B12 287 pg/mL (200-900)
== END 2024-10-25 10:32 | disposition home or self-care (01) ==
LOC: HO.WFDLDS 10:31
PROVIDERS: Internal Medicine Hypertension Specialist; PCP Nurse Practitioner Family; Visit Provider Nurse Practitioner Family
DX: Z76.89 Persons encountering health services in other specified circumstances (principal); I13.0 Hypertensive heart and chronic kidney disease with heart failure and stage 1 through stage 4 chronic kidney disease, or unspecified chronic kidney disease; E11.22 Type 2 diabetes mellitus with diabetic chronic kidney disease; N18.30 Chronic kidney disease, stage 3 unspecified; I50.32 Chronic diastolic (congestive) heart failure; L97.529 Non-pressure chronic ulcer of other part of left foot with unspecified severity; I70.245 Atherosclerosis of native arteries of left leg with ulceration of other part of foot; I25.118 Atherosclerotic heart disease of native coronary artery with other forms of angina pectoris; I27.20 Pulmonary hypertension, unspecified; C61 Malignant neoplasm of prostate; C76.0 Malignant neoplasm of head, face and neck; D64.9 Anemia, unspecified; F33.1 Major depressive disorder, recurrent, moderate; F41.1 Generalized anxiety disorder; R16.0 Hepatomegaly, not elsewhere classified; E78.5 Hyperlipidemia, unspecified; K70.0 Alcoholic fatty liver; E03.9 Hypothyroidism, unspecified; I77.810 Thoracic aortic ectasia; J43.1 Panlobular emphysema; Z12.5 Encounter for screening for malignant neoplasm of prostate; F17.200 Nicotine dependence, unspecified, uncomplicated; F10.11 Alcohol abuse, in remission; Z71.6 Tobacco abuse counseling; Z80.0 Family history of malignant neoplasm of digestive organs; Z79.4 Long term (current) use of insulin
CPT/HCPCS: 36415; 80048; 80053; 80061; 82607; 82728; 82746; 83540; 84153; 85027; 96127; 99202

== ENCOUNTER 2024-11-08 09:51 | Outpatient (AMB) | payer MEDICARE, MEDICAID, SELFPAY ==
[2024-11-08 09:53] VITALS: BP 92/60; PULSE 93; O2SAT 96; BMI 30.1
--- NOTE | 2024-11-08 09:53 | HO.NEPHOV ---
Vital Signs 11/08/24 09:53 Height 5 ft 11 in Weight 216 lb BMI 30.1 BP 92/60 Blood Pressure Location Rt brachial Position Sitting Pulse 93 Pulse Source Pulse Oximeter Pulse Oximetry (%) 96 Oxygen Delivery Method Room Air Intake Visit Reasons: 6 weeks fu Steel Plate Printer Required: No Accompanied by: Self / Same As Patient Allergies No Known Allergies Allergy (Verified 11/08/24 09:55) HPI Comments Details: 58-year-old male presenting with medication adjustment and follow-up for kidney function and blood pressure management. The patient has a history of chronic kidney disease, where kidney function plunged to 29% during a previous hospitalization. He has recently experienced significant fatigue and dizziness since returning home, potentially linked to low blood pressure noted at the same time. Amlodipine, part of his antihypertensive regimen, is suspected to contribute to hypotension, and its use is being reconsidered. Additionally, the patient is known to have diabetes mellitus and has been receiving treatment for alcohol use disorder. The management and progress of these conditions were acknowledged but were not elaborated upon in terms of specific therapeutic measures. It is crucial to monitor blood pressure and kidney function carefully due to their potential to worsen the patient's fatigue and overall condition. 08/04/24 Feels better Stopped Amlodipine BP at home was 116/70 by RN 09/27/2024. Not sure if he is taking his medications. Blood pressure is rather low today. He is asymptomatic 11/08/24 - The patient is a 59-year-old male presenting with hypertension. - Hypertension: Low blood pressure noted, possibly due to medication. - Fatigue: Reports of excessive tiredness and daytime naps. - Medication adherence: On multiple medications with dosage confusion. Reviewed with patient [facility] Medical History (Updated 10/25/24 @ 14:02 by Maya Bullard, [facility]) History of osteomyelitis Spinal stenosis Hydrocele Hx of gout Umbilical hernia Diverticular disease History of MRSA infection of lungs History of alcohol withdrawal delirium Anxiety with depression Critical illness myopathy Nasal septal defect ETOH abuse Throat cancer Surgical History History of surgery on lower extremity H/O excision of mass Family History Father No problems noted. Mother No problems noted. Social History Household Members: None Housing: House Do you presently have visiting nurse or other home services: Yes Alcohol intake: current Alcohol intake frequency: 3 or more drinks per day Alcohol type: beer Comment: 1:1 sitter Patient Tobacco Use Status: Current everyday Tobacco user Tobacco use type: Cigarette Cigarettes Per Day: 10 e-Cigarette/Vaping Use: Never Used Second Hand Smoke Exposure: No service: No Cognitive needs: No Hearing needs: No Vision needs: No Physical Exam Vital Signs: Last Vital Signs Pulse 93 11/08/24 09:53 BP 92/60 11/08/24 09:53 Pulse Ox 96 11/08/24 09:53 Oxygen Delivery Method Room Air 11/08/24 09:53 BMI result Body Mass Index 30.1 Comfortable Neck supple no JVD. Lungs entry equal no rales. Heart S1-S2 heard no gallop or rub. Abdomen soft nontender. Neuro alert awake oriented. No asterixis. Extremities no edema. Results Reviewed Nephrology Results: Hgb, (14.0-18.0) 11.7 g/dl L 10/25/24 WBC, (4.8-10.8) 9.0 X10*3/uL 10/25/24 Plt Count, (160-400) 271 X10*3/uL Δ 10/25/24 Sodium, (135-145) 137 mmol/L 10/25/24 Potassium, (3.3-5.1) 4.6 mmol/L 10/25/24 Chloride, (96-108) 106 mmol/L 10/25/24 Carbon Dioxide, (22-29) 25 mmol/L 10/25/24 BUN, (9-16) 32 mg/dL H 10/25/24 Creatinine, (0.5-1.4) 1.69 mg/dL H 10/25/24 Calcium, (8.4-10.2) 9.1 mg/dL 10/25/24 Assessment & Plan Assessment & Plan (1) DARRELL (acute kidney injury): Comment: hypoperfusion/ATN- resolving Code(s): N17.9 - Acute kidney failure, unspecified Category: Medical Plan: Keep I > O Avoid nephrotoxins 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 (2) Hypotension: Code(s): I95.9 - Hypotension, unspecified Category: Medical Plan: Change MEtoprolol to 50 mg from 100 mg Change Losartan HCT 50/12.5 to Losartan 50 mg QD (3) Diabetic ulcer of left foot associated with diabetes mellitus due to underlying condition: Code(s): E08.621 - Diabetes mellitus due to underlying condition with foot ulcer; L97.529 - Non-pressure chronic ulcer of other part of left foot with unspecified severity Category: Medical Qualifiers: Diabetic foot ulcer location: unspecified part of foot Non-pressure ulcer stage: unspecified non-pressure ulcer stage Qualified Code(s): E08.621 - Diabetes mellitus due to underlying condition with foot ulcer; L97.529 - Non-pressure chronic ulcer of other part of left foot with unspecified severity Plan: slightly improved follow up with podiatry and vascular surgery as directed continue with wound care Orders: Orders Basic Metabolic Panel 2 Months E11.22 - Type 2 diabetes mellitus with diabetic chronic kidney disease, N18.30 - Chronic kidney disease, stage 3 unspecified Medications: New losartan 50 mg PO DAILY 90 tabs 0RF Coding Level of Care Code Est Pt Level 4 (14469) Diagnoses DARRELL (acute kidney injury) N17.9 Hypotension I95.9 Diabetic ulcer of left foot associated with diabetes mellitus due to underlying condition, unspecified part of foot, unspecified ulcer stage E08.621; L97.529 Diabetic foot ulcer location: unspecified part of foot Non-pressure ulcer stage: unspecified non-pressure ulcer stage
--- OUTSIDE RECORDS SUMMARY | 2024-11-08 10:46 | XMS_ITS | Clinical Summary ---
Author Organization [facility] Address [address] [place] [address] Care Team Providers Care Regulatory Submissions Specialist Name Role Phone Rita Fierro MD Primary [...] Tdap) 07/12/2020 07/12/2010 COVID-19 Vaccine ( season) 2024 12/04/2020, 05/31/2020, 05/09/2020 Influenza Vaccine [...] age to complete this topic Care Teams Regulatory Submissions Specialist Relationship Specialty Start Date End Date Rita Fierro MD [address] [place] [address] [place] [address] PCP - General Internal Medicine 08/02/16
--- OUTSIDE RECORDS SUMMARY | 2024-11-08 10:46 | XMS_ITS | Clinical Summary ---
Author Organization [facility] Address [address] [address] Care Team Providers Care Bladder Blower Name Role Phone Rita Fierro MD Primary [...] patient's age to complete this topic Insurance [facility] JULIET VALDIVIA [id number] Care Teams Bladder Blower Relationship Specialty Start Date End Date Rita Fierro MD [facility] [address] [place] [address] [address] [place], [place] PCP - General 02/20/20
--- OUTSIDE RECORDS SUMMARY | 2024-11-08 10:46 | XMS_ITS | Encounter Summary ---
Author Organization [facility] Address [address] [place] [address] Care Team Providers Care Retail Warehouse Associate Name Role Phone Rita Fierro MD Primary Care Provide r Encounter Details Date Type Department Care Team (Late st Contact Info) Description 06/08/2024 Lab Requisition [facility] - Main Lab [address] [facility] [place] [address] Krishan Sotelo MD [address] [place] [address] [address] [place], [address] Type 2 diabetes mellitus without complications [...] 2 diabetes mellitus without complications (CMS/HCC V24, CMS/[facility] V28) documented in this encounter Results * (ABNORMAL) Hemoglobin A1c (06/08/2024 7:34 AM EDT) Hemoglobin A1C 7.1(H) <6.5 % LAB CHEMISTRY METHOD 06/08/2024 12:47 PM EDT [facility] ([facility]) [facility] Mean Bld Glu Estim. 157 mg/dL LAB CHEMISTRY METHOD 06/08/2024 12:47 PM EDT [facility] Blood Venous blood specimen / Unknown Venipuncture / Unknown 06/08/2024 7:34 AM EDT 06/08/2024 10:04 AM EDT us Krishan Sotelo MD LAB BLOOD ORDERABLES Final Resul t [facility] [address] [place] [address], documented in this encounter Visit Diagnoses Diagnosis Type 2 diabetes mellitus without complications (CMS/HCC V24, CMS/HCC V28) documented in this encounter Care Teams Retail Warehouse Associate Relationship Specialty Start Date End Date Rita Fierro MD [address] [place] [address] [place] PCP - General Internal Medicine 08/02/16 documented as of this encounter
--- OUTSIDE RECORDS SUMMARY | 2024-11-08 10:46 | XMS_ITS | Clinical Summary ---
Author Organization [employer] Address [address] [facility] 7[address] [place] [address] Care Team Providers Care Mechanical Manufacturing Engineer Name Role Phone Unavailable Primary Care Provider Unavailabl e Social History Tobacco Use Types Packs/Day Years [...] 60-74 years 1-dose series) 2024 COVID-19 Vaccine ( - 2024- season) 2024 12/04/2020, 05/31/2020, 05/09/2020 Influenza Vaccine (#1) 2024 , 12/15/2018, 11/11/2017, Additional history exists HIB Vaccines [...]
--- OUTSIDE RECORDS SUMMARY | 2024-11-08 10:46 | XMS_ITS | Encounter Summary ---
Author Organization [facility] Address [address] [place] [address] Care Team Providers Care Culinary Internship Name Role Phone Rita Fierro MD Primary Care Provide r Encounter Details Date Type Department Care Team Description 02/21/2022 Social Work [facility] Oncology Services [address] [place] [address] Ramon Hoskins, [facility] Social History Tobacco Use Types Packs/Day Years [...] on filedocumented in this encounter Care Teams Culinary Internship Relationship Specialty Start Date End Date Rita Fierro MD [address] [place] [address] PCP - General Internal Medicine 08/02/16 documented as of this encounter
--- OUTSIDE RECORDS SUMMARY | 2024-11-08 10:46 | XMS_ITS | Encounter Summary ---
Author Organization [facility] Address [address] [place] [phone] Care Team Providers Care Baggageman Name Role Phone Rita Fierro MD Primary Care Provide r Encounter Details Date Type Department Care Team (Late st Contact Info) Description 06/06/2024 Lab Requisition [facility] - Main Lab [address] [facility] [place] [address] Krishan Sotelo MD [address] [place] [address] [address] [facility] [address] Essential (primary) hypertension; Type 2 diabetes [...] 2 diabetes mellitus without complications (CMS/HCC V24, [facility] V28) Metabolic encephalopathy Alcohol use, unspecified with withdrawal delirium ([facility] V24, [facility] V28) COMPREHENSIVE METABOLIC PANEL Routine 06/06/2024 7:22 AM EDT Essential (primary) hypertension Type 2 diabetes mellitus without complications ([facility] V24, [facility] V28) Metabolic encephalopathy Alcohol use, unspecified with withdrawal delirium ([facility] V24, [facility] V28) documented in this encounter Results * (ABNORMAL) CBC auto differential (06/06/2024 7:22 AM EDT) [facility] WBC 9.4 4.8 - 10.8 K/mcL LAB HEMETOLOGY METHOD 06/06/2024 10:49 AM [facility] RBC 2.80(L) 4.50 - 5.50 M/mcL LAB HEMETOLOGY METHOD 06/06/2024 10:49 AM [facility] Hemoglobin 9.2(L) 13.5 - 17.5 g/dL LAB HEMETOLOGY METHOD 06/06/2024 10:49 AM [facility] Hematocrit 28.4(L) 42.0 - 54.0 % LAB HEMETOLOGY METHOD 06/06/2024 10:49 AM [facility] MCV 102.9(H) 79.0 - 98.0 FL LAB HEMETOLOGY METHOD 06/06/2024 10:49 AM [facility] MCH 33.3(H) 27.0 - 32.0 pcg LAB HEMETOLOGY METHOD 06/06/2024 10:49 AM [facility] MCHC 32.4 32.0 - 37.0 g/dL LAB HEMETOLOGY METHOD 06/06/2024 10:49 AM [facility] RDW 15.5(H) 11.0 - 15.0 % LAB HEMETOLOGY METHOD 06/06/2024 10:49 AM [facility] Platelets 505(H) 130 - 400 K/mcL LAB HEMETOLOGY METHOD 06/06/2024 10:49 AM [facility] MPV 10.2 7.0 - 11.0 FL LAB HEMETOLOGY METHOD 06/06/2024 10:49 AM [facility] NRBC 0.0 <1.0 % LAB HEMETOLOGY METHOD 06/06/2024 10:49 AM [facility] NRBC Absolute 0.00 <0.10 K/mcL LAB HEMETOLOGY METHOD 06/06/2024 10:49 AM [facility] Neutrophils Relative 71.0 % LAB HEMETOLOGY METHOD 06/06/2024 10:49 AM [facility] Lymphocytes Relative 13.6 % LAB HEMETOLOGY METHOD 06/06/2024 10:49 AM [facility] Monocytes Relative 7.0 % LAB HEMETOLOGY METHOD 06/06/2024 10:49 AM [facility] Eosinophils Relative 6.1 % LAB HEMETOLOGY METHOD 06/06/2024 10:49 AM [facility] Basophils Relative 1.1 % LAB HEMETOLOGY METHOD 06/06/2024 10:49 AM [facility] Immature Granulocytes Relative 1.2 % LAB HEMETOLOGY METHOD 06/06/2024 10:49 AM [facility] Neutrophils Absolute 6.66 1.50 - 7.00 K/mcL LAB HEMETOLOGY METHOD 06/06/2024 10:49 AM [facility] Lymphocytes Absolute 1.28 1.00 - 5.00 K/mcL LAB HEMETOLOGY METHOD 06/06/2024 10:49 AM [facility] Monocytes Absolute 0.66 0.20 - 1.00 K/mcL LAB HEMETOLOGY METHOD 06/06/2024 10:49 AM EDT [facility] Eosinophils Absolute 0.57(H) 0.00 - 0.50 K/mcL LAB HEMETOLOGY METHOD 06/06/2024 10:49 AM T [facility] Basophils Absolute 0.10 0.00 - 0.20 K/mcL LAB HEMETOLOGY METHOD 06/06/2024 10:49 AM EDT [facility] Immature Granulocytes Absolute 0.11(H) 0.00 - 0.03 K/mcL LAB HEMETOLOGY METHOD 06/06/2024 10:49 AM T [facility] Blood Venous blood specimen / Unknown Venipuncture / Unknown 06/06/2024 7:22 AM EDT 06/06/2024 9:08 AM EDT us Krishan Sotelo MD LAB BLOOD ORDERABLES Final Resul t [facility] [address] [place] [address], [place] [phone] * (ABNORMAL) Comprehensive metabolic panel (06/06/2024 7:22 AM EDT) Sodium 134 133 - 145 mmol/L LAB CHEMISTRY METHOD 06/06/2024 12:50 PM [facility] Potassium 4.0 3.5 - 5.5 mmol/L LAB CHEMISTRY METHOD 06/06/2024 12:50 PM [facility] Chloride 100 96 - 110 mmol/L LAB CHEMISTRY METHOD 06/06/2024 12:50 PM [facility] CO2 24 21 - 32 mmol/L LAB CHEMISTRY METHOD 06/06/2024 12:50 PM [facility] Anion Gap 10 3 - 11 LAB CHEMISTRY METHOD 06/06/2024 12:50 PM [facility] Glucose 146(H) 70 - 100 mg/dL LAB CHEMISTRY METHOD 06/06/2024 12:50 PM [facility] BUN 20 5 - 25 mg/dL LAB CHEMISTRY METHOD 06/06/2024 12:50 PM [facility] Creatinine 1.50(H) 0.70 - 1.30 mg/dL LAB CHEMISTRY METHOD 06/06/2024 12:50 PM [facility] eGFR 53(L) >=60 mL/min/1. 73m2 LAB CHEMISTRY METHOD 06/06/2024 12:50 PM [facility] Comment:Calculation based on the Chronic Kidney Disease Epidemiology Collaboration (CKD-EPI) equation refit without adjustment for race. BUN/Creatinine Ratio 13.3 LAB CHEMISTRY METHOD 06/06/2024 12:50 PM [facility] Calcium 9.4 8.5 - 10.5 mg/dL LAB CHEMISTRY METHOD 06/06/2024 12:50 PM [facility] AST (SGOT) 16 10 - 42 unit/L LAB CHEMISTRY METHOD 06/06/2024 12:50 PM [facility] ALT (SGPT) 15 10 - 60 unit/L LAB CHEMISTRY METHOD 06/06/2024 12:50 PM [facility] Alkaline Phosphatase 83 42 - 121 unit/L LAB CHEMISTRY METHOD 06/06/2024 12:50 PM [facility] Total Protein 7.1 6.0 - 8.0 g/dL LAB CHEMISTRY METHOD 06/06/2024 12:50 PM [facility] Albumin 3.3 3.2 - 5.0 g/dL LAB CHEMISTRY METHOD 06/06/2024 12:50 PM [facility] Total Bilirubin 0.4 0.0 - 1.4 mg/dL LAB CHEMISTRY METHOD 06/06/2024 12:50 PM [facility] Blood Venous blood specimen / Unknown Venipuncture / Unknown 06/06/2024 7:22 AM EDT 06/06/2024 9:08 AM EDT us Krishan Sotelo MD LAB BLOOD ORDERABLES Final Resul t [facility] ([facility]) [facility] [address] [place] [address], [place] [phone] documented in this encounter Visit Diagnoses Diagnosis Essential (primary) hypertension Unspecified essential hypertension Type 2 diabetes mellitus without complications (CMS/[facility] V24, CMS/[facility] V28) Metabolic encephalopathy Alcohol use, unspecified with withdrawal delirium (CMS/[facility] V24, CMS/[facility] V28) documented in this encounter Care Teams Baggageman Relationship Specialty Start Date End Date Rita Fierro MD [address] [place] [address] PCP - General Internal Medicine 08/02/16 documented as of this encounter
--- OUTSIDE RECORDS SUMMARY | 2024-11-08 10:46 | XMS_ITS | Clinical Summary ---
Author Organization [address] [facility] Address [address] [place] [address] Phone Care Team Providers Care Product Development Name Role Phone Rita Fierro MD Primary Care Provide r Immunizations Immunization Administration Dates Next Due Pfizer SARS-CoV-2 COVID-19, [...] Date Last Done Comments Colorectal Cancer Screening: Colonoscopy 1964 Diabetes: Annual Foot Exam 1974 Diabetes: Annual Retina Eye Exam 1974 Hepatitis A Vaccines (1 of 2 - Risk 2-dose series) 09/14/1983 Zoster Vaccines (2 of 2) 05/09/2015 03/14/2015 Pneumococcal Vaccine: 50+ Years (2 of 2 - PCV) 03/22/2017 03/22/2016 DTaP,Tdap,and Td Vaccines (2 - Tdap) 07/12/2020 07/12/2010 Cholesterol Screening (Lipid Panel) 01/17/2022 HIV Screening 01/17/2022 Hepatitis C Screening [...] EDT Type 2 diabetes mellitus without complications ([facility] V24, [facility] V28) COMPREHENSIVE METABOLIC PANEL Routine 06/06/2024 7:22 AM EDT Essential (primary) hypertension Type 2 diabetes mellitus without complications ([facility] V24, [facility] V28) Metabolic encephalopathy Alcohol use, unspecified with withdrawal delirium ([facility] V24, [facility] V28) from Last 3 Months or Most Recently Relevant to Health Maintenance Results * (ABNORMAL) Hemoglobin A1c (06/08/2024 7:34 AM EDT) Hemoglobin A1C 7.1(H) <6.5 % LAB CHEMISTRY METHOD 06/08/2024 12:47 PM EDT [facility] Mean Bld Glu Estim. 157 mg/dL LAB CHEMISTRY METHOD 06/08/2024 12:47 PM EDT [facility] Blood Venous blood specimen / Unknown Venipuncture / Unknown 06/08/2024 7:34 AM EDT 06/08/2024 10:04 AM EDT us Krishan Sotelo MD LAB BLOOD ORDERABLES Final Resul t [facility] [address] [place] [address], * (ABNORMAL) Comprehensive metabolic panel (06/06/2024 7:22 AM EDT) Sodium 134 133 - 145 mmol/L LAB CHEMISTRY METHOD 06/06/2024 12:50 PM EDT [facility] Potassium 4.0 3.5 - 5.5 mmol/L LAB CHEMISTRY METHOD 06/06/2024 12:50 PM EDT [facility] Chloride 100 96 - 110 mmol/L [...] LAB CHEMISTRY METHOD 06/06/2024 12:50 PM EDT [facility] Total Bilirubin 0.4 0.0 - 1.4 mg/dL LAB CHEMISTRY METHOD 06/06/2024 12:50 PM EDT [facility] Blood Venous blood specimen / Unknown Venipuncture / Unknown 06/06/2024 7:22 AM EDT 06/06/2024 9:08 AM EDT us Krishan Sotelo MD LAB BLOOD ORDERABLES Final Resul t [facility] ([facility] [address] [place] [address], from Last 3 Months or Most Recently Relevant to Health Maintenance Insurance [employer] MEDICARE [place]ICAID - [place] Advance Directives Documents on File Type Date Recorded Patient News Analyst Expl anation Health Care Decision (hx) 09/27/2018 [...] (hx) 09/27/2018 AD GARCIA DIRECTIVE Care Teams Product Development Relationship Specialty Start Date End Date Rita Fierro MD [address] [place] [address] [place] PCP - General Internal Medicine 08/02/16
--- OUTSIDE RECORDS SUMMARY | 2024-11-08 10:46 | XMS_ITS | Clinical Summary ---
Author Organization [facility] Address [email or web address] [place] [address] Phone Care Team Providers Care Parking Station Attendant Name Role Phone Rita Fierro MD Primary [...] topic Medical Devices Not on file [place] [address] [place] [address] CARE MEDICARE REPLACEMENT [facility] ONE CARE MEDICARE REPLAC[place] [address] [place] [address] [address] [place] [place] [place] [address] CARE MEDICARE REPLACEMENT [facility] CARE MEDICARE REPLACEMENT [facility] CARE MEDICARE REPLACEMENT [facility] MEDICARE REPLACEMENT [facility] CARE MEDICARE REPLACEMENT [facility] ONE CARE MEDICARE REPLACEMENT JULIET VALDIVIA [facility] Advance Directives For more information, please contact: [phone] (9AM - 5PM [facility], Thursday-Thursday) Documents on File Type Date Recorded Patient Surgeon Partner Expl anation Healthcare Proxy 08/27/2015 11:01 AM * Full Code (Presumed) (Latest Code Status on File) Date Activated Date Inactivated Comments 08/22/2015 11:35 AM 08/24/2015 10:39 AM Care Teams Parking Station Attendant Relationship Specialty Start Date End Date Rita Fierro MD [address] [place] [address] PCP - General Internal Medicine 01/12/15 Additional Source Comments The information contained in this document represents components of the legal health record. It is not the complete legal health record.[facility]
== END 2024-11-08 10:13 | disposition home or self-care (01) ==
LOC: HO.HKA 09:53
PROVIDERS: PCP Nurse Practitioner Family; Visit Provider Internal Medicine Hypertension Specialist
DX: N17.9 Acute kidney failure, unspecified (principal); I95.9 Hypotension, unspecified; E08.621 Diabetes mellitus due to underlying condition with foot ulcer; L97.529 Non-pressure chronic ulcer of other part of left foot with unspecified severity
CPT/HCPCS: 99214

== ENCOUNTER → 2024-11-08 09:51 | Outpatient (BNVA) | payer MEDICARE, MEDICAID, SELFPAY | PROVIDERS: PCP Nurse Practitioner Family; Visit Provider Internal Medicine Hypertension Specialist | DX: N17.9 Acute kidney failure, unspecified (principal); I95.9 Hypotension, unspecified; E08.621 Diabetes mellitus due to underlying condition with foot ulcer; L97.529 Non-pressure chronic ulcer of other part of left foot with unspecified severity; N18.30 Chronic kidney disease, stage 3 unspecified | CPT/HCPCS: 99212 ==

== ENCOUNTER 2024-11-23 08:17 | Outpatient (REF) | payer MEDICARE, MEDICAID, SELFPAY ==
--- NOTE | ~2024-11-23 | US_ITS ---
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 TECHNIQUE: Color flow triplex imaging and compression Doppler was performed to evaluate both the deep and the superficial systems bilaterally. To evaluate the superficial system, the examination was performed in the upright position. Color-flow Doppler ultrasound and compression ultrasound were utilized. In addition, maneuvers were utilized to demonstrate reflux. FINDINGS: 1. DEEP VENOUS ULTRASOUND OF THE RIGHT LOWER EXTREMITY: Common Femoral Vein: Compressible, normal respiratory variation and augmented flow. Femoral Vein: Compressible, normal color flow and augmentation. Popliteal Vein: Compressible, normal augmentation. Deep Reflux: There is no evidence of reflux in the deep system in either the common femoral vein, superficial femoral or the popliteal vein. There is no evidence of a Oconnor's cyst. 2. SUPERFICIAL ULTRASOUND WITH DOPPLER OF RIGHT LOWER EXTREMITY: GREAT SAPHENOUS VEIN: Saphenofemoral Junction: 0.5 cm; Reflux: 0 ms Proximal Thigh: 0.4 cm; Reflux: 0 ms Mid Thigh: 0.2 cm; Reflux: 0 ms Distal Thigh: 0.2 cm; Reflux: 0 ms At Knee: 0.3 cm; Reflux: 0 ms Proximal Calf: 0.2 cm; Reflux: 0 ms Mid Calf: 0.2 cm; Reflux: 0 ms Distal Calf: 0.3 cm; Reflux: 0 ms DUPLICATED MEDIAL GREAT SAPHENOUS VEIN: Diameter: None imaged Reflux: NA DUPLICATED LATERAL GREAT SAPHENOUS VEIN: Diameter: 0.2 cm Reflux: NA SMALL SAPHENOUS VEIN: Saphenopopliteal Junction: 0.3 cm; Reflux: 0 ms Proximal: 0.4 cm; Reflux: 0 ms Distal: 0.2 cm; Reflux: 0 ms VEIN OF GIACOMINI: Size: NA Reflux: NA PERFORATORS: Location: 2 perforators seen in the mid calf Size: 0.3 and 0.4 cm Reflux: NA VARICOSITIES: Location: None imaged. Size: NA Reflux: NA 3. DEEP VENOUS ULTRASOUND OF THE LEFT LOWER EXTREMITY: Common Femoral Vein: Compressible, normal respiratory variation and augmented flow. Femoral Vein: Compressible, normal color flow and augmentation. Popliteal Vein: Compressible, normal augmentation. Deep Reflux: There is no evidence of reflux in the deep system in either the common femoral vein, superficial femoral or the popliteal vein. There is no evidence of a Oconnor's cyst. 4. SUPERFICIAL ULTRASOUND WITH DOPPLER OF LEFT LOWER EXTREMITY: GREAT SAPHENOUS VEIN: Saphenofemoral Junction: 0.5 cm; Reflux: 0 ms Proximal Thigh: 0.5 cm; Reflux: 0 ms Mid Thigh: 0.3 cm; Reflux: 0 ms Distal Thigh: 0.3 cm; Reflux: 0 ms At Knee: 0.3 cm; Reflux: 0 ms Proximal Calf: 0.3 cm; Reflux: 0 ms Mid Calf: 0.4 cm; Reflux: 0 ms Distal Calf: 0.4 cm; Reflux: 0 ms DUPLICATED MEDIAL GREAT SAPHENOUS VEIN: Diameter: None imaged Reflux: NA DUPLICATED LATERAL GREAT SAPHENOUS VEIN: Diameter: 0.4 cm at the saphenofemoral junction and 0.2 cm in the mid thigh. Reflux: NA SMALL SAPHENOUS VEIN: Saphenopopliteal Junction: 0.5 cm; Reflux: 0 ms Proximal: 0.6 cm; Reflux: 0 ms Distal: 0.6 cm; Reflux: 0 ms VEIN OF GIACOMINI: Size: NA Reflux: NA PERFORATORS: Location: 2 perforators Size: 0.4 cm in the proximal calf and 0.3 cm in the mid calf. Reflux: NA VARICOSITIES: Location: Two varicosities communicating with the small saphenous vein Size: 0.4 cm in the proximal calf and 0.3 cm in the mid calf. Reflux: NA Lymph node in the left groin measuring 3.5 x 1.1 x 2.5 cm. This demonstrates normal ultrasound morphology thick echogenic fatty hilum and normal central hilar flow. US/US venous duplex LE BI IMPRESSION: Right: No evidence of DVT or deep venous reflux. Normal caliber greater and lesser saphenous veins without reflux. Small varicosities in the mid calf. Left: No evidence of DVT or deep venous reflux. Normal caliber greater saphenous vein without reflux. Minimally dilated small saphenous vein measuring 0.5 to 0.6 cm without reflux. Small varicosities and perforators in the calf. Electronically signed by: Princess Aggarwal MD 11/23/2024 09:45 AM EDT
--- OUTSIDE RECORDS SUMMARY | 2024-11-23 08:36 | XMS_ITS | Encounter Summary ---
Author Organization [facility] Address [address] [place] [phone] Care Team Providers Care Limnologist Name Role Phone Rita Fierro MD Primary Care Provide r Encounter Details Date Type Department Care Team (Late st Contact Info) Description 06/08/2024 Lab Requisition [facility] - Main Lab [address] [facility] [place] [address] Krishan Sotelo MD [address] [place] [address] [address] [place], [phone] Type 2 diabetes mellitus without complications [...] 2 diabetes mellitus without complications (CMS/HCC V24, CMS/[facility] V28) documented in this encounter Results * (ABNORMAL) Hemoglobin A1c (06/08/2024 7:34 AM EDT) Hemoglobin A1C 7.1(H) <6.5 % LAB CHEMISTRY METHOD 06/08/2024 12:47 PM EDT [facility] Mean Bld Glu Estim. 157 mg/dL LAB CHEMISTRY METHOD 06/08/2024 12:47 PM EDT [facility] Blood Venous blood specimen / Unknown Venipuncture / Unknown 06/08/2024 7:34 AM EDT 06/08/2024 10:04 AM EDT us Krishan Sotelo MD LAB BLOOD ORDERABLES Final Resul t [facility] [address] [place] [address], documented in this encounter Visit Diagnoses Diagnosis Type 2 diabetes mellitus without complications (CMS/HCC V24, CMS/HCC V28) documented in this encounter Care Teams Limnologist Relationship Specialty Start Date End Date Rita Fierro MD [address] [place] [address] [place] PCP - General Internal Medicine 08/02/16 documented as of this encounter
--- OUTSIDE RECORDS SUMMARY | 2024-11-23 08:36 | XMS_ITS | Encounter Summary ---
Author Organization [facility] Address [address] [place] [address] Care Team Providers Care Street Worker Name Role Phone Rita Fierro MD Primary Care Provide r Encounter Details Date Type Department Care Team Description 02/21/2022 Social Work [facility] Oncology Services [address] [place] [address] Ramon Hoskins, [facility] Social History Tobacco Use Types Packs/Day [...] on filedocumented in this encounter Care Teams Street Worker Relationship Specialty Start Date End Date Rita Fierro MD [address] [place] [address] PCP - General Internal Medicine 08/02/16 documented as of this encounter
--- OUTSIDE RECORDS SUMMARY | 2024-11-23 08:36 | XMS_ITS | Clinical Summary ---
Author Organization [address] [facility] Address [address] [place] [address] Phone Care Team Providers Care Field Crop Farmworker Name Role Phone Rita Fierro MD Primary [...] of 2 - Risk 2-dose series) 09/14/1983 RSV Immunization Adult Patients (1 - Risk 50-74 years 1-dose series) 2014 Zoster Vaccines (2 of 2) 05/09/2015 03/14/2015 Pneumococcal Vaccine: 50+ Years (2 of 2 - PCV) 03/22/2017 03/22/2016 DTaP,Tdap,and Td Vaccines (2 - Tdap) 07/12/2020 07/12/2010 Cholesterol Screening (Lipid Panel) 01/17/2022 HIV Screening 01/17/2022 Hepatitis C Screening 01/17/2022 Medicare Annual Wellness Visit 01/17/2022 Social Influencers of Health Screening 01/17/2022 Depression Screening 02/10/2024 Diabetes: Annual Urine Albumin-Creatinine Ratio (uACR) 04/19/2024 10/29/2022 Influenza Vaccine (#1) 2024 , 11/30/2020, 12/15/2018, [...] EDT Type 2 diabetes mellitus without complications ([facility] [place], [facility] V28) COMPREHENSIVE METABOLIC PANEL Routine 06/06/2024 7:22 AM EDT Essential (primary) hypertension Type 2 diabetes mellitus without complications ([facility] [place]24, [facility] V28) Metabolic encephalopathy Alcohol use, unspecified with withdrawal delirium ([facility] V24, [facility] V28) from Last 3 Months or Most Recently Relevant to Health Maintenance Results * (ABNORMAL) Hemoglobin A1c (06/08/2024 7:34 AM EDT) Hemoglobin A1C 7.1(H) <6.5 % LAB CHEMISTRY METHOD 06/08/2024 12:47 PM EDT [facility] Mean Bld Glu Estim. 157 mg/dL LAB CHEMISTRY METHOD 06/08/2024 12:47 PM EDT [facility] Blood Venous blood specimen / Unknown Venipuncture / Unknown 06/08/2024 7:34 AM EDT 06/08/2024 10:04 AM EDT us Krishan Sotelo MD LAB BLOOD ORDERABLES Final Resul t [facility] [address] [place] [address], * (ABNORMAL) Comprehensive metabolic panel (06/06/2024 7:22 AM EDT) Sodium 134 133 - 145 mmol/L LAB CHEMISTRY METHOD 06/06/2024 12:50 PM EDT [facility] Potassium 4.0 3.5 - 5.5 mmol/L LAB CHEMISTRY METHOD 06/06/2024 12:50 PM EDT [facility] Chloride 100 96 - 110 mmol/L LAB CHEMISTRY METHOD 06/06/2024 12:50 PM [facility] CO2 24 21 - 32 mmol/L LAB CHEMISTRY METHOD 06/06/2024 12:50 PM [facility] Anion Gap 10 3 - 11 LAB CHEMISTRY METHOD 06/06/2024 12:50 PM [facility] Glucose 146(H) 70 - 100 mg/dL LAB CHEMISTRY METHOD 06/06/2024 12:50 PM [facility] BUN 20 5 - 25 mg/dL LAB CHEMISTRY METHOD 06/06/2024 12:50 PM [facility] Creatinine 1.50(H) 0.70 - 1.30 mg/dL LAB CHEMISTRY METHOD 06/06/2024 12:50 PM [facility] eGFR 53(L) >=60 mL/min/1. 73m2 LAB CHEMISTRY METHOD 06/06/2024 12:50 PM [facility] Comment:Calculation based on the Chronic Kidney Disease Epidemiology Collaboration (CKD-EPI) equation refit without adjustment for race. BUN/Creatinine Ratio 13.3 LAB CHEMISTRY METHOD 06/06/2024 12:50 PM [facility] Calcium 9.4 8.5 - 10.5 mg/dL LAB CHEMISTRY METHOD 06/06/2024 12:50 PM [facility] AST (SGOT) 16 10 - 42 unit/L LAB CHEMISTRY METHOD 06/06/2024 12:50 PM [facility] ALT (SGPT) 15 10 - 60 unit/L LAB CHEMISTRY METHOD 06/06/2024 12:50 PM [facility] Alkaline Phosphatase 83 42 - 121 unit/L LAB CHEMISTRY METHOD 06/06/2024 12:50 PM [facility] Total Protein 7.1 6.0 - 8.0 g/dL LAB CHEMISTRY METHOD 06/06/2024 12:50 PM [facility] Albumin 3.3 3.2 - 5.0 g/dL LAB CHEMISTRY METHOD 06/06/2024 12:50 PM EDT [facility] Total Bilirubin 0.4 0.0 - 1.4 mg/dL LAB CHEMISTRY METHOD 06/06/2024 12:50 PM EDT [facility] Blood Venous blood specimen / Unknown Venipuncture / Unknown 06/06/2024 7:22 AM EDT 06/06/2024 9:08 AM EDT us Krishan Sotelo MD LAB BLOOD ORDERABLES Final Resul t [facility] [address] [place] [address], from Last 3 Months or Most Recently Relevant to Health Maintenance Insurance [employer] MEDICARE [place]ICAID - [place] Advance Directives Documents on File Type Date Recorded Patient Manager Compensation Expl anation Health Care Decision (hx) 09/27/2018 [...] (hx) 09/27/2018 AD GARCIA DIRECTIVE Care Teams Field Crop Farmworker Relationship Specialty Start Date End Date Rita Fierro MD [address] [place] [address] [place] PCP - General Internal Medicine 08/02/16
--- OUTSIDE RECORDS SUMMARY | 2024-11-23 08:36 | XMS_ITS | Clinical Summary ---
Author Organization [facility] Address [address] [facility] [address] [place] [address] Phone Care Team Providers Care Business Objects Developer Name Role Phone Rita Fierro MD Primary [...] FOBT 2009 SIGMOIDOSCOPY 2009 VIRTUAL COLONOSCOPY 2009 RSV VACCINE (1 - Risk 50-74 years 1-dose series) 2014 PNEUMOCOCCAL VACCINES (50+ years) (2 of 2 - PCV) 03/22/2017 03/22/2016 INFLUENZA VACCINE (#1) 2024 9, 12/25/2016, 03/22/2016 COVID-19 VACCINE (2 - 2024-2 6 season) [...] topic Medical Devices Not on file Insurance [facility] CARE MEDICARE REPLACEMENT Member Subscriber Plan / Payer (Ef fective 2021-Present) Name:Romaine Longoria Relation to Subscriber:Self Name:Romaine Longoria Payer ID:[id number] (NAIC) Group ID:[id number] Type:Medicare [address] [facility] ONE CARE MEDICARE [place] [address] [address] [place] [address] [address] [place] [place] [address] CARE MEDICARE REPLACEMENT [facility] CARE MEDICARE REPLACEMENT [facility] CARE MEDICARE REPLACEMENT [facility] CARE MEDICARE REPLACEMENT [facility] CARE MEDICARE REPLACEMENT [facility] ONE CARE MEDICARE REPLACEMENT JULIET VALDIV[facility] Advance Directives For more information, please contact: [phone] (9AM - 5PM 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 It is not the complete legal health record.[facility]
--- OUTSIDE RECORDS SUMMARY | 2024-11-23 08:36 | XMS_ITS | Encounter Summary ---
Author Organization [facility] Address [address] [place] [phone] Care Team Providers Care Devops Name Role Phone Rita Fierro MD Primary Care Provide r Encounter Details Date Type Department Care Team (Late st Contact Info) Description 06/06/2024 Lab Requisition [facility] - Main Lab [address] [facility] [place] [address] Krishan Sotelo MD [address] [place] [address] [address] [facility] [phone] Essential (primary) hypertension; Type 2 [...] 2 diabetes mellitus without complications (CMS/HCC V24, [facility] V28) Metabolic encephalopathy Alcohol use, unspecified with withdrawal delirium ([facility] V24, [facility] V28) COMPREHENSIVE METABOLIC PANEL Routine 06/06/2024 7:22 AM EDT Essential (primary) hypertension Type 2 diabetes mellitus without complications ([facility] V24, [facility] V28) Metabolic encephalopathy Alcohol use, unspecified with withdrawal delirium ([facility] V24, [facility] V28) documented in this encounter Results * (ABNORMAL) CBC auto differential (06/06/2024 7:22 AM EDT) [facility] WBC 9.4 4.8 - 10.8 K/mcL LAB HEMETOLOGY METHOD 06/06/2024 10:49 AM [facility] RBC 2.80(L) 4.50 - 5.50 M/mcL LAB HEMETOLOGY METHOD 06/06/2024 10:49 AM [facility] Hemoglobin 9.2(L) 13.5 - 17.5 g/dL LAB HEMETOLOGY METHOD 06/06/2024 10:49 AM [facility] Hematocrit 28.4(L) 42.0 - 54.0 % LAB HEMETOLOGY METHOD 06/06/2024 10:49 AM [facility] MCV 102.9(H) 79.0 - 98.0 FL LAB HEMETOLOGY METHOD 06/06/2024 10:49 AM [facility] MCH 33.3(H) 27.0 - 32.0 pcg LAB HEMETOLOGY METHOD 06/06/2024 10:49 AM [facility] MCHC 32.4 32.0 - 37.0 g/dL LAB HEMETOLOGY METHOD 06/06/2024 10:49 AM [facility] RDW 15.5(H) 11.0 - 15.0 % LAB HEMETOLOGY METHOD 06/06/2024 10:49 AM [facility] Platelets 505(H) 130 - 400 K/mcL LAB HEMETOLOGY METHOD 06/06/2024 10:49 AM [facility] MPV 10.2 7.0 - 11.0 FL LAB HEMETOLOGY METHOD 06/06/2024 10:49 AM [facility] NRBC 0.0 <1.0 % LAB HEMETOLOGY METHOD 06/06/2024 10:49 AM [facility] NRBC Absolute 0.00 <0.10 K/mcL LAB HEMETOLOGY METHOD 06/06/2024 10:49 AM [facility] Neutrophils Relative 71.0 % LAB HEMETOLOGY METHOD 06/06/2024 10:49 AM [facility] Lymphocytes Relative 13.6 % LAB HEMETOLOGY METHOD 06/06/2024 10:49 AM [facility] Monocytes Relative 7.0 % LAB HEMETOLOGY METHOD 06/06/2024 10:49 AM [facility] Eosinophils Relative 6.1 % LAB HEMETOLOGY METHOD 06/06/2024 10:49 AM [facility] Basophils Relative 1.1 % LAB HEMETOLOGY METHOD 06/06/2024 10:49 AM [facility] Immature Granulocytes Relative 1.2 % LAB HEMETOLOGY METHOD 06/06/2024 10:49 AM [facility] Neutrophils Absolute 6.66 1.50 - 7.00 K/mcL LAB HEMETOLOGY METHOD 06/06/2024 10:49 AM [facility] Lymphocytes Absolute 1.28 1.00 - 5.00 K/mcL LAB HEMETOLOGY METHOD 06/06/2024 10:49 AM [facility] Monocytes Absolute 0.66 0.20 - 1.00 K/mcL LAB HEMETOLOGY METHOD 06/06/2024 10:49 AM EDT [facility] Eosinophils Absolute 0.57(H) 0.00 - 0.50 K/mcL LAB HEMETOLOGY METHOD 06/06/2024 10:49 AM T [facility] Basophils Absolute 0.10 0.00 - 0.20 K/mcL LAB HEMETOLOGY METHOD 06/06/2024 10:49 AM EDT [facility] Immature Granulocytes Absolute 0.11(H) 0.00 - 0.03 K/mcL LAB HEMETOLOGY METHOD 06/06/2024 10:49 AM T [facility] Blood Venous blood specimen / Unknown Venipuncture / Unknown 06/06/2024 7:22 AM EDT 06/06/2024 9:08 AM EDT us Krishan Sotelo MD LAB BLOOD ORDERABLES Final Resul t [facility] [address] [place] [address], [place] [phone] * (ABNORMAL) Comprehensive metabolic panel (06/06/2024 7:22 AM EDT) Sodium 134 133 - 145 mmol/L LAB CHEMISTRY METHOD 06/06/2024 12:50 PM [facility] Potassium 4.0 3.5 - 5.5 mmol/L LAB CHEMISTRY METHOD 06/06/2024 12:50 PM [facility] Chloride 100 96 - 110 mmol/L LAB CHEMISTRY METHOD 06/06/2024 12:50 PM [facility] CO2 24 21 - 32 mmol/L LAB CHEMISTRY METHOD 06/06/2024 12:50 PM [facility] Anion Gap 10 3 - 11 LAB CHEMISTRY METHOD 06/06/2024 12:50 PM [facility] Glucose 146(H) 70 - 100 mg/dL LAB CHEMISTRY METHOD 06/06/2024 12:50 PM [facility] BUN 20 5 - 25 mg/dL LAB CHEMISTRY METHOD 06/06/2024 12:50 PM [facility] Creatinine 1.50(H) 0.70 - 1.30 mg/dL LAB CHEMISTRY METHOD 06/06/2024 12:50 PM [facility] eGFR 53(L) >=60 mL/min/1. 73m2 LAB CHEMISTRY METHOD 06/06/2024 12:50 PM [facility] Comment:Calculation based on the Chronic Kidney Disease Epidemiology Collaboration (CKD-EPI) equation refit without adjustment for race. BUN/Creatinine Ratio 13.3 LAB CHEMISTRY METHOD 06/06/2024 12:50 PM [facility] Calcium 9.4 8.5 - 10.5 mg/dL LAB CHEMISTRY METHOD 06/06/2024 12:50 PM [facility] AST (SGOT) 16 10 - 42 unit/L LAB CHEMISTRY METHOD 06/06/2024 12:50 PM [facility] ALT (SGPT) 15 10 - 60 unit/L LAB CHEMISTRY METHOD 06/06/2024 12:50 PM [facility] Alkaline Phosphatase 83 42 - 121 unit/L LAB CHEMISTRY METHOD 06/06/2024 12:50 PM [facility] Total Protein 7.1 6.0 - 8.0 g/dL LAB CHEMISTRY METHOD 06/06/2024 12:50 PM [facility] Albumin 3.3 3.2 - 5.0 g/dL LAB CHEMISTRY METHOD 06/06/2024 12:50 PM [facility] Total Bilirubin 0.4 0.0 - 1.4 mg/dL LAB CHEMISTRY METHOD 06/06/2024 12:50 PM [facility] Blood Venous blood specimen / Unknown Venipuncture / Unknown 06/06/2024 7:22 AM EDT 06/06/2024 9:08 AM EDT us Krishan Sotelo MD LAB BLOOD ORDERABLES Final Resul t [facility] [address] [place] [address], [place] [phone] documented in this encounter Visit Diagnoses Diagnosis Essential (primary) hypertension Unspecified essential hypertension Type 2 diabetes mellitus without complications (CMS/[facility] V24, CMS/[facility] V28) Metabolic encephalopathy Alcohol use, unspecified with withdrawal delirium (CMS/[facility] V24, [facility] V28) documented in this encounter Care Teams Devops Relationship Specialty Start Date End Date Rita Fierro MD [address] [place] [address] PCP - General Internal Medicine 08/02/16 documented as of this encounter
--- OUTSIDE RECORDS SUMMARY | 2024-11-23 08:36 | XMS_ITS | Clinical Summary ---
Author Organization [facility] Address [address] [place] [address] Care Team Providers Care Proof Reader Name Role Phone Rita Fierro MD Primary [...] age to complete this topic Care Teams Proof Reader Relationship Specialty Start Date End Date Rita Fierro MD [address] [place] [address] [place] [address] PCP - General Internal Medicine 08/02/16
--- OUTSIDE RECORDS SUMMARY | 2024-11-23 08:36 | XMS_ITS | Clinical Summary ---
Author Organization [facility] Address [address] [address] Care Team Providers Care Machine Welder Name Role Phone Rita Fierro MD Primary [...] age to complete this topic Insurance [facility] [place] [phone] Care Teams Machine Welder Relationship Specialty Start Date End Date Rita Fierro MD [facility] [address] [place] [address] [phone] [place], [place] PCP - General 02/20/20
--- OUTSIDE RECORDS SUMMARY | 2024-11-23 08:36 | XMS_ITS | Clinical Summary ---
Author Organization [employer] Address [address] [facility] [address] [place] [address] Care Team Providers Care Public Health Internship Name Role Phone Unavailable Primary Care Provider [...] patient's age to complete this topic Insurance [facility] [place] [address]
== END 2024-11-23 08:18 | disposition home or self-care (01) ==
LOC: HO.US 08:17
PROVIDERS: PCP Nurse Practitioner Family; Visit Provider Surgery Vascular Surgery
DX: I83.12 Varicose veins of left lower extremity with inflammation (principal)
CPT/HCPCS: 93970

== ENCOUNTER → 2024-11-23 08:18 | Outpatient (BNV) | payer MEDICARE, MEDICAID, SELFPAY | PROVIDERS: PCP Nurse Practitioner Family; Visit Provider Radiology Diagnostic Radiology | DX: I83.12 Varicose veins of left lower extremity with inflammation (principal); I83.11 Varicose veins of right lower extremity with inflammation | CPT/HCPCS: 93970 ==

== ENCOUNTER 2024-11-25 09:54 | Outpatient (AMB) | payer MEDICARE, MEDICAID, SELFPAY ==
--- NOTE | 2024-11-25 09:57 | A.OFFPC_ITS ---
Vital Signs 3 11/25/24 10:01 Height 5 ft 11 in Weight 209 lb 6 oz BMI 29.2 BP 136/76 Blood Pressure Location Rt brachial Position Sitting Respiration 13 Pulse 95 Pulse Source Pulse Oximeter Temp 97.2 F Temp Source Oral Pulse Oximetry (%) 95 Oxygen Delivery Method Room Air Intake Visit Reasons: 4 weeks 30 min close interim fu Intake Note: 4 Weeks follow up. Patient c/o left foot ulcer is painful. Fraternity House Cook Required: No Allergies No Known Allergies Allergy (Verified 11/25/24 09:57) Medication List - Last Reconciled 11/25/24 by Maya Bullard, ROUTE DELIVERY SERVICE DRIVER- acamprosate 666 mg (2 x 333 mg) PO TID alcohol swabs (Alcohol Prep Pads) topically; use 1 prep pad to clean skin prior to injections up to 5 x daily atorvastatin (Lipitor) 10 mg PO BEDTIME blood sugar diagnostic (Accu-Chek Guide test strips) use once daily As directed to monitor blood sugars blood-glucose meter (Accu-Chek Guide Glucose Meter) Use once daily As directed to monitor blood sugars blood-glucose sensor (ComputeNext G7 Sensor device) Use daily As directed dulaglutide (Trulicity) 0.75 mg (0.5 mL) subcut QWEEK empagliflozin (Jardiance) 10 mg PO DAILY fluticasone propion-salmeterol 250-50 mcg/dose 1 ea inhalation BID fluticasone propionate 50 mcg/actuation 1 spray intranasal DAILY folic acid 1 mg PO DAILY insulin glargine (Lantus Solostar U-100 Insulin) 10 units (0.1 mL) subcut BEDTIME lancets (Accu-Chek Softclix Lancets) use once daily As directed to monitor blood sugars levothyroxine 200 mcg PO DAILY@0600 losartan 50 mg PO DAILY metformin 500 mg PO BID metoprolol succinate ER 50 mg PO DAILY mometasone 0.1% 1 appl topical DAILY omeprazole 20 mg PO DAILY@0630 pen needle, diabetic Use daily As directed pregabalin 75 mg PO BID tamsulosin (Flomax) 0.4 mg PO BEDTIME Tobacco use date assessed: 11/25/24 Dental Screening Dental Screen Date: 11/25/24 Did you have a dental visit in the last 12 months?: Yes Did you have a dental problem in the last 6 months where you did not have access to dental care?: No Was dental information given to patient?: Patient has dentist HPI HPI Comments 2 History of Present Illness0 Details [facility] 59 y/o M with alcohol abuse hx of DT wit hdrawl (currently sober), CKD3, DM with complication, polyneuropathy, pulmonary hypertension, PVD with plantar ulceration on the left foot, current smoker, obesity , hx of MRSA pneumonia and hypoxic resp. failure requiring intubation, HLD, hypothyroid, LISA, MDD, GERD, CAD, anemia , Mild changes of small vessel ischemia, Hepatomegaly and steatosis, Diverticular disease, sigmoid colon, Fat-containing umbilical hernia, CHF, aortic root dilation, Hx of prostate Ca, COPD, gout, hydrocele, malignant tumor of neck s/p resction and radiation, spinal stenosis, eczema, family hx colon ca (mom), hx of osteomyelitis L foot s/p tonsillectomy, aspiratin of spermatocele Fhx: Dad with CAD, Mom with colon ca; Bro and Sister w/ cancer Health Maintenance Tdap 2024 Flu 11/25/24 Colon referred to [facility] GI today; unsure of last colon long time ago i have requested records from [facility] Lung Ca screening referred to program at [facility] today DM eye 10/2024 negative retinopathy [facility] Podiat[facility] 10/12/[address] Arias Optho @ [facility] 10/2024 [facility] History of Present Illness - The patient is a 59-year-old male pres enting for close interim complex fu - History of alcohol use disorder in ear ly remission, 9 mo sober; previously required ICU admission. Presently on acamprosate; abstaining from alcohol. - Coronary artery disease managed with a torvastatin. Having chest pains. Cards referral & testing in progress. - Diabetes type 2 with complications inc luding a left foot ulcer; on insulin glargine, metformin, empagliflozin, dulaglutide. Managed by [facility] Endo. A1c toda 7.9%, using CGM. Missed Endo appt, it was rescheduled. States taking all meds as directed - Met w/ [facility] Vasc who debrided the area. He is offloading best he can and providing dressing changes. Needs more zinc to apply to perimeter. - He needs diabetic shoes/orthotics. Act bryan w/ Podiatry, will not get shoes until February 2025. - History of prostate CA, on tamsulosin. PSA > 142, STat referral to [facility] Uro appt 12/13/24 - Anxiety managed with sertraline and pr egabalin. - GERD managed with omeprazole. - Hypothyroidism managed with levothyrox ine. - Right neck cancer, prior treatment wit h surgery and radiation, still need records on this; has constant L sided nasal congestion. Uses saline. I recommended Flonase today. - Current smoker. - Had contact with NN to help manage his care; he is thankful for this. I provided him w print out of his upcoming appts today. He has an updated med list printed. Review of Systems - Constitutional: Denies recent weight l oss, fever, or fatigue. - Cardiovascular: Reports history of cor onary artery disease. - Respiratory: Reported lung issues but denies ongoing respiratory symptoms. - Gastrointestinal: Reports GERD, denies current abdominal pain or changes in bowel habits. - Genitourinary: History of prostate can cer - Endocrine: Reports diabetes management . - Neurological: Denies new neurological deficits. - Psychiatric: Reports anxiety, managed with medication. - Musculoskeletal: Reports chronic foot ulcer on the left side. - Skin: Reports healing of ulcer, otherw ise no new skin changes. Physical Exam General: Well developed, well nourished, in no acute distress. Appears stated age. Head: Normocephalic, atraumatic. Eyes: Pupils are equal, round and reactive to light and accommodation. Conjunctivae are clear. Lungs: Dim throughout Heart: Regular rate and rhythm. No murmurs, click, rubs or gallops are noted. Musculoskeletal: Joints are nontender, without swelling, redness, or effusions. Pulses: Peripheral pulses are equal and palpable bilaterally. Chronic vascular changes and varicose veins BLE, DM ulcer bottom of L foot see pic below. Extremities: No clubbing, cyanosis. Trace pretibial edema LLE pt reports chronic Psych: Mood and affect appropriate. Results from 10/2024 reviewed w/ him today. Discussion Notes During the visit, I discussed the patient's current medical conditions, focusing on management and treatment options for diabetes, the foot ulcer, and the elevated PSA. Emphasis was placed on the urgency of the urology appointment due to the significant increase in PSA levels, with the importance of addressing prostate cancer recurrence or progression. We reviewed medication adherence, results of recent ultrasounds of the legs, and upcoming appointments with various specialists, including the stock worker and deliverer and head host/hostess. I encouraged the patient to maintain his sobriety, acknowledging the difficulty of navigating multiple medical issues but reinforcing the importance of continued care for long-term health. Patient support was discussed, with access to nurse Way to reaffirm and assist with appointment scheduling as discussed in the narrative. Patient was given time to ask questions. All questions were answered to their satisfaction. Assessment and Plan 1. Alcohol Use Disorder - Continue acomprosate 2. Coronary Artery Disease/CHF/Aortic ro ot dilation - Continue atorvastatin; refer to cardio logy. Check stress test & echo 3. Diabetes Mellitus 2 with complication - Insulin, oral medications; monitor A1c ; specialist follow up. Dm eye 10/2024 negative retinopathy DM foot 10/2024 Dr Arias 4. Hx of prostate CA - Continue tamsulosin. - PSA > 142 [facility] [place] referr[place] 1 02/13/24 5. Anxiety Disorder - Continue sertraline, pregabalin; [facility] referral. 6. Gastroesophageal Reflux - Continue omeprazole. - refer to GI 7. Hypothyroidism - Continue levothyroxine; monitor TSH. 8. Foot Ulcer, L - Cont care w/ [place] [facility] [place] cont care w/ podiatry - get orthotics/dm shoes TONI - refilled zinc 9. Right neck Cancer - Maintain oncology follow-up. - i need records on this - add flonase to help chronic L nasal co ngestion, ok to cont saline prn 10. Flu admin today Patient Instructions - Continue taking your diabetes medicati ons as prescribed. - Regularly check and record your blood sugar levels. - Follow up with the urology appointment on December 13. - Continue wound care for your foot ulce r daily. - Keep active and engaged to support you r sobriety. - Monitor your blood pressure at home. - Try using Flonase for nasal congestion and report if it helps. - Contact nurse Veras for help with jaye ointment reminders. - Maintain a healthy diet and exercise r outine. - Avoid alcohol and minimize smoking. - Contact the office if any new symptoms develop or if current symptoms worsen. - RTO 3 months, sooner PRN Consent Patient was informed and verbally consented to the use of an ambient scribe for clinic note documentation during this visit. Total time spent caring for the patient today was 40 minutes. This includes time spent before the visit reviewing the chart, time spent during the visit, and time spent after the visit on documentation, reviewing laboratory results, diagnostic imaging, medications, performing a medically necessary evaluation, counseling on diagnoses, care coordination, ordering appropriate tests, ordering appropriate medications, review of tests performed by other providers, reporting test results with the patient, communication with other healthcare providers. [facility] Medical History (Updated 11/25/24 @ 10:35 by Maya Bullard, [facility]) Anxiety with depression Critical illness myopathy Diverticular disease ETOH abuse History of alcohol withdrawal delirium History of MRSA infection of lungs History of osteomyelitis Hx of gout Hydrocele Nasal septal defect Spinal stenosis Throat cancer Umbilical hernia Surgical History History of surgery on lower extremity H/O excision of mass Family History Father No problems noted. Mother No problems noted. Social History Household Members: None Housing: House Do you presently have visiting nurse or other home services: Yes Alcohol intake: current Alcohol intake frequency: 3 or more drinks per day Alcohol type: beer Comment: 1:1 sitter Patient Tobacco Use Status: Current everyday Tobacco user Tobacco use type: Cigarette Cigarettes Per Day: 10 e-Cigarette/Vaping Use: Never Used Second Hand Smoke Exposure: No service: No Current occupational status: retired Current occupational exposures/hazards: No Cognitive needs: No Hearing needs: No Vision needs: No Questionnaire PHQ-9 Over the last 2 weeks, how often have you been bothered by any of the following problems? 1. Little interest or pleasure in doing things: not at all 2. Feeling down, depressed, or hopeless: not at all 3. Trouble falling or staying asleep, or sleeping too much: not at all 4. Feeling tired or having little energy: not at all 5. Poor appetite or overeating: not at all 6. Feeling bad about yourself - or that you are a failure or have let yourself or your family down: not at all 7. Trouble concentrating on things, such as reading the newspaper or watching television: not at all 8. Moving or speaking so slowly that other people could have noticed. Or the opposite - being so fidgety or restless that you have been moving around a lot more than usual: not at all 9. Thoughts that you would be better off or of hurting yourself in some way: not at all Total score: 0 Depression Screening Interpretation: Negative Depression Screening Done: Yes 95510 - PHQ-9 Billing: Yes Source: Developed by Drs. Darin Kim, Donna Higgins, Jose Nicole and colleagues, with an educational felisha from [employer]. Thrive Questionnaire Date Thrive assessed: 11/25/24 I am a: Patient What is your living situation today?: I have a steady place to live Within the past 12 months, did the food you bought not last and you didn't have the money to get more?: Often true Within the past 12 months, did you worry whether your food would run out before you got money to buy more?: Often true Do you have trouble paying for medicines?: Yes Do you have trouble getting transportation to medical appointments?: Yes Do you have trouble paying your heating and electricity bill?: Yes Do you have trouble taking care of your child, family member or friend?: No Do you have trouble with day-to-day activities such as bathing, preparing meals, shopping, managing finances, etc.?: No Are you currently unemployed and looking for a job?: Yes Are you interested in more education?: Yes Currently or been in a relationship where the following occur: No concerns reported THRIVE Score: 4 AUDIT C Alcohol Use Questionnaire (AUDIT-C) 2. How many drinks containing alcohol do you have on a typical day when you are drinking?: 1 or 2 3. How often do you have six or more drinks on one occasion?: Never Total Score: 0 LISA-7 AMB Questionnaire LISA-7 Date LISA - 7 assessed: 11/25/24 Feeling nervous, anxious, or on edge: 0 = Not at all Not being able to stop or control worryin = Not at all Worrying too much about different things: 0 = Not at all Trouble relaxin = Not at all Being so restless that it is hard to sit still: 0 = Not at all Becoming easily annoyed or irritable: 0 = Not at all Feeling afraid as if something awful might happen: 0 = Not at all Total LISA-7 score (0-4 normal; 5-9 mild; 10-14 moderate; 15-21 severe): 0 Source: Developed by Drs. Darin Kim, Donna Higgins, Jose Nicole and colleagues, with an educational felisha from [employer]. LISA-7 Assessment Billing LISA-7 Assessment Tool: LISA-7 Assessment 89435 Physical exam (Primary Care) Vital Signs: Last Vital Signs Temp 97.2 F 11/25/24 10:01 Pulse 95 11/25/24 10:01 Resp 13 11/25/24 10:01 BP 136/76 11/25/24 10:01 Pulse Ox 95 11/25/24 10:01 Oxygen Delivery Method Room Air 11/25/24 10:01 BMI result Body Mass Index 29.2 Tobacco/Smoking Status: Tobacco use Status Tobacco use date assessed 11/25/24 11/25/24 09:59 Patient Tobacco Use Status Current everyday Tobacco 11/25/24 09:59 Tobacco use type Cigarette 11/25/24 09:59 e-Cigarette/Vaping Use Never Used 11/25/24 09:59 Are you ready to quit: No Tobacco cessation counseling provided: Yes Items discussed: Nicotine replacement, QuitWorks and Other Relapse Prevention: discussed the importance of a supportive environment, discussed extending NRT, discussed negative mood or depression after quitting, weight gain after smoking is common and discussed dietary, exercise and/or lifestyle changes Number of minutes spent counselin CPT code: 44721 - 4-10 Minutes PHQ-9: PHQ-9 Score PHQ-9: Total score 0 11/25/24 10:13 Depression Screening Interpretation: Negative Thrive Assessment: Date of Thrive Assessment Date Thrive assessed 11/25/24 11/25/24 09:59 Currently or been in a relationship where the following occur: No concerns reported Office Procedures Flu Questionnaire Does the patient have a severe egg allergy?: No Does the patient have severe life threatening allergies?: No Does the patient have a fever or illness today?: No Has the patient ever had Guillain-[place] Furnace Syndrome?: No Has the patient ever had any past reaction to a flu shot?: No Results AMB Hemoglobin A1c 2 AMB Hemoglobin A1c 7.9 % Last Edit by Huey Hoffmann MA on 11/25/24 10:27 Immunizations Fluarix [id number] (PF) 45 mcg (15 mcg x 3)/0.5 mL IM syringe Performing Provider: KATE Kaur Performing Location: [facility] Administered by: Huey Hoffmann MA on 11/25/24 10:39 2 Dose Route Admin Location Dispensed Lot Number Expiration Date NDC Health Program Manager 0.5 mL IM Right Deltoid 0.5 mL [id number] 08/08/25 [id number] [employer]LAX OSMITHKLINE 2 VIS Given Date VIS Provided VIS Publication Date 11/25/24 Single Vaccine 24 Eligibility Eligibility Date Funding Source Not [facility] Eligible 11/25/24 Private Results Reviewed Results Reviewed: Laboratory Last Values Hgb A1c (Clinic) 7.9 % (4.0-6.0) H 11/25/24 10:06 Coding Level of Care Code Est Pt Level 5 (46966) Complex EM visit Add On G2211 Diagnoses Insulin dependent type 2 diabetes mellitus, controlled E11.9; Z79.4 Diabetic ulcer of left foot associated with diabetes mellitus due to underlying condition, unspecified part of foot, unspecified ulcer stage E08.621; L97.529 Diabetic foot ulcer location: unspecified part of foot Non-pressure ulcer stage: unspecified non-pressure ulcer stage Influenza vaccination administered at current visit Z23 Alcohol abuse, in remission F10.11 Prostate CA C61 Current smoker F17.200 Additional Codes LISA-7 Assessment Billing - LISA-7 Assessment Tool: LISA-7 Assessment 06859 ([id number]) PHQ-9 - 29233 - PHQ-9 Billing: Yes ([id number]) Vital Signs *Quality* - CPT code: 73371 - 4-10 Minutes ([id number]) Assessment & Plan Assessment & Plan (1) Insulin dependent type 2 diabetes mellitus, controlled: Code(s): E11.9 - Type 2 diabetes mellitus without complications; Z79.4 - [facility] (current) use of insulin Category: Medical (2) Diabetic ulcer of left foot associated with diabetes mellitus due to underlying condition: Code(s): E08.621 - Diabetes mellitus due to underlying condition with foot ulcer; L97.529 - Non-pressure chronic ulcer of other part of left foot with unspecified severity Category: Medical Qualifiers: Diabetic foot ulcer location: unspecified part of foot Non-pressure ulcer stage: unspecified non-pressure ulcer stage Qualified Code(s): E08.621 - Diabetes mellitus due to underlying condition with foot ulcer; L97.529 - Non- pressure chronic ulcer of other part of left foot with unspecified severity (3) Influenza vaccination administered at current visit: Onset Date: ~11/25/24 Code(s): Z23 - Encounter for immunization Category: Medical (4) Alcohol abuse, in remission: Code(s): F10.11 - Alcohol abuse, in remission Category: Medical (5) Prostate CA: Code(s): C61 - Malignant neoplasm of prostate Category: Medical (6) Current smoker: Comment: referred to lung ca screening Code(s): F17.200 - Nicotine dependence, unspecified, uncomplicated Category: Medical Plan . Orders: Orders 2 AMB Hemoglobin A1c Today E08.621 - Diabetes mellitus due to underlying condition with foot ulcer, E11.9 - Type 2 diabetes mellitus without complications, L97.529 - Non-pressure chronic ulcer of other part of left foot with unspecified severity, Z79.4 - [facility] (current) use of insulin Influenza [id number] Immunization Today Z23 - Encounter for immunization Referrals 2 Urology Referral C61 - Malignant neoplasm of prostate Medications: New 2 zinc oxide 12% (Harjeet Protect (zinc oxide)) apply to perimeter of foot ulcer 1 appl topical TID 142 grams 4RF Refilled 2 fluticasone propionate 50 mcg/actuation 1 spray intranasal DAILY 16 grams 12RF
[2024-11-25 10:01] VITALS: BP 136/76; PULSE 95; RESP 13; TEMP 36.2; O2SAT 95; BMI 29.2
--- OUTSIDE RECORDS SUMMARY | 2024-11-25 11:32 | XMS_ITS | Clinical Summary ---
Author Organization [facility] [facility] [facility] Address [address] [place] [address] Care Team Providers Care Digital Asset Coordinator Name Role Phone Unavailable Primary Care Provider [...] patient's age to complete this topic Insurance [facility] MEDICARE ADVANTAGE
--- OUTSIDE RECORDS SUMMARY | 2024-11-25 11:32 | XMS_ITS | Clinical Summary ---
Author Organization [facility] Address [address] [place] [address] Care Team Providers Care Casting Agent Name Role Phone Rita Fierro MD Primary [...] age to complete this topic Care Teams Casting Agent Relationship Specialty Start Date End Date Rita Fierro MD [address] [place] [address] [place] [address] PCP - General Internal Medicine 08/02/16
--- OUTSIDE RECORDS SUMMARY | 2024-11-25 11:32 | XMS_ITS | Clinical Summary ---
Author Organization [facility] Address [address] [place] [address] Phone Care Team Providers Care Security Guards Dispatcher Name Role Phone Rita Fierro MD Primary [...] topic Medical Devices Not on file Insurance [facility] CARE MEDICARE REPLACEMENT Member Subscriber Plan / Payer (Ef fective 2021-Present) Name:Romaine Longoria Relation to Subscriber:Self Name:Romaine Longoria Payer ID:[id number] (NAIC) Group ID:[id number] Type:Medicare [address] [facility] ONE CARE MEDICARE [place] [address] [place] [address] [address] [place] [place] [place] [address] CARE MEDICARE REPLACEMENT [facility] CARE MEDICARE REPLACEMENT [facility] CARE MEDICARE REPLACEMENT [facility] CARE MEDICARE REPLACEMENT [facility] CARE MEDICARE REPLACEMENT [facility] ONE CARE MEDICARE REPLACEMENT JUILET VALDIVIA [facility] Advance Directives For more information, please contact: [phone] (9AM - 5PM [facility], Thursday-Thursday) Documents on File Type Date Recorded 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 It is not the complete legal health record.[facility]
--- OUTSIDE RECORDS SUMMARY | 2024-11-25 11:32 | XMS_ITS | Clinical Summary ---
Author Organization [address] [facility] Address [address] [place] [address] Phone Care Team Providers Care Communication Coordinator Name Role Phone Rita Fierro MD Primary [...] EDT Type 2 diabetes mellitus without complications ([facility] V24, [facility] V28) COMPREHENSIVE METABOLIC PANEL Routine 06/06/2024 7:22 AM EDT Essential (primary) hypertension Type 2 diabetes mellitus without complications ([facility] V24, [facility] V28) Metabolic encephalopathy Alcohol use, unspecified with withdrawal delirium ([facility] V24, [facility] V28) from Last 3 Months or Most Recently Relevant to Health Maintenance Results * (ABNORMAL) Hemoglobin A1c (06/08/2024 7:34 AM EDT) Hemoglobin A1C 7.1(H) <6.5 % LAB CHEMISTRY METHOD 06/08/2024 12:[address] [facility] Mean Bld Glu Estim. 157 mg/dL LAB CHEMISTRY METHOD 06/08/2024 12:[address] [facility] Blood Venous blood specimen / Unknown Venipuncture / Unknown 06/08/2024 7:34 AM EDT 06/08/2024 10:04 AM EDT us Krishan Sotelo MD LAB BLOOD ORDERABLES Final Resul t [facility] [address] [place] [address], * (ABNORMAL) Comprehensive metabolic panel (06/06/2024 7:22 AM EDT) Sodium 134 133 - 145 mmol/L LAB CHEMISTRY METHOD 06/06/2024 12:[address] [facility] Potassium 4.0 3.5 - 5.5 mmol/L LAB CHEMISTRY METHOD 06/06/2024 12:[address] [facility] Chloride 100 96 - 110 mmol/L LAB CHEMISTRY METHOD 06/06/2024 12:50 PM [facility] CO2 24 21 - 32 mmol/L LAB CHEMISTRY METHOD 06/06/2024 12:50 PM [facility] Anion Gap 10 3 - 11 LAB CHEMISTRY METHOD 06/06/2024 12:50 PM [facility] Glucose 146(H) 70 - 100 mg/dL LAB CHEMISTRY METHOD 06/06/2024 12:50 PM [facility] BUN 20 5 - 25 mg/dL LAB CHEMISTRY METHOD 06/06/2024 12:50 PM [facility] Creatinine 1.50(H) 0.70 - 1.30 mg/dL LAB CHEMISTRY METHOD 06/06/2024 12:50 PM [facility] eGFR 53(L) >=60 mL/min/1. 73m2 LAB CHEMISTRY METHOD 06/06/2024 12:50 PM [facility] Comment:Calculation based on the Chronic Kidney Disease Epidemiology Collaboration (CKD-EPI) equation refit without adjustment for race. BUN/Creatinine Ratio 13.3 LAB CHEMISTRY METHOD 06/06/2024 12:50 PM [facility] Calcium 9.4 8.5 - 10.5 mg/dL LAB CHEMISTRY METHOD 06/06/2024 12:50 PM [facility] AST (SGOT) 16 10 - 42 unit/L LAB CHEMISTRY METHOD 06/06/2024 12:50 PM [facility] ALT (SGPT) 15 10 - 60 unit/L LAB CHEMISTRY METHOD 06/06/2024 12:50 PM [facility] Alkaline Phosphatase 83 42 - 121 unit/L LAB CHEMISTRY METHOD 06/06/2024 12:50 PM [facility] Total Protein 7.1 6.0 - 8.0 g/dL LAB CHEMISTRY METHOD 06/06/2024 12:50 PM [facility] Albumin 3.3 3.2 - 5.0 g/dL LAB CHEMISTRY METHOD 06/06/2024 12:[address] [facility] Total Bilirubin 0.4 0.0 - 1.4 mg/dL LAB CHEMISTRY METHOD 06/06/2024 12:[address] [facility] Blood Venous blood specimen / Unknown Venipuncture / Unknown 06/06/2024 7:22 AM EDT 06/06/2024 9:08 AM EDT us Krishan Sotelo MD LAB BLOOD ORDERABLES Final Resul t [facility] ([facility]) [facility] [address] [place] [address], from Last 3 Months or Most Recently Relevant to Health Maintenance Insurance [employer] MEDICARE [place]ICA[place] - [place] Advance Directives Documents on File Type Date Recorded Patient International Controller Expl anation Health Care Decision (hx) 09/27/2018 [...] (hx) 09/27/2018 AD GARCIA DIRECTIVE Care Teams Communication Coordinator Relationship Specialty Start Date End Date Rita Fierro MD [address] [place] [address] [place] PCP - General Internal Medicine 08/02/16
--- OUTSIDE RECORDS SUMMARY | 2024-11-25 11:32 | XMS_ITS | Encounter Summary ---
Author Organization [facility] Address [address] [place] [address] Care Team Providers Care Crop Supervisor Name Role Phone Rita Fierro MD Primary Care Provide r Encounter Details Date Type Department Care Team Description 02/21/2022 Social Work [facility] [address] [place] [address] Ramon Hoskins, [facility] Social History Tobacco Use [...] on filedocumented in this encounter Care Teams Crop Supervisor Relationship Specialty Start Date End Date Rita Fierro MD [address] [place] [id number] PCP - General Internal Medicine 08/02/16 documented as of this encounter
--- OUTSIDE RECORDS SUMMARY | 2024-11-25 11:32 | XMS_ITS | Encounter Summary ---
Author Organization [facility] Address [address] [place] [phone] Care Team Providers Care Estimator Printing Plate Making Name Role Phone Rita Fierro MD Primary Care Provide r Encounter Details Date Type Department Care Team (Late st Contact Info) Description 06/08/2024 Lab Requisition [facility] - Main Lab [address] [facility] [place] [address] Krishan Sotelo MD [address] [place] [address] [address] [place], [phone] Type 2 diabetes mellitus without complications [...] 2 diabetes mellitus without complications (CMS/HCC V24, CMS/[facility] V28) documented in this encounter Results * (ABNORMAL) Hemoglobin A1c (06/08/2024 7:34 AM EDT) Hemoglobin A1C 7.1(H) <6.5 % LAB CHEMISTRY METHOD 06/08/2024 12:47 PM EDT [facility] ([facility]) [facility] Mean Bld Glu Estim. 157 mg/dL LAB CHEMISTRY METHOD 06/08/2024 12:47 PM EDT [facility] Blood Venous blood specimen / Unknown Venipuncture / Unknown 06/08/2024 7:34 AM EDT 06/08/2024 10:04 AM EDT us Krishan Sotelo MD LAB BLOOD ORDERABLES Final Resul t [facility] [address] [place] [address], documented in this encounter Visit Diagnoses Diagnosis Type 2 diabetes mellitus without complications (CMS/HCC V24, CMS/HCC V28) documented in this encounter Care Teams Estimator Printing Plate Making Relationship Specialty Start Date End Date Rita Fierro MD [address] [place] [address] [place] PCP - General Internal Medicine 08/02/16 documented as of this encounter
--- OUTSIDE RECORDS SUMMARY | 2024-11-25 11:32 | XMS_ITS | Encounter Summary ---
Author Organization [facility] Address [address] [place] [phone] Care Team Providers Care Tracer Powder Blender Name Role Phone Rita Fierro MD Primary Care Provide r Encounter Details Date Type Department Care Team (Late st Contact Info) Description 06/06/2024 Lab Requisition [facility] - Main Lab [address] [facility] [place] [address] Krishan Sotelo MD [address] [place] [address] [address] [facility] [phone] Essential (primary) hypertension; Type 2 [...] 2 diabetes mellitus without complications (CMS/HCC V24, [facility] V28) Metabolic encephalopathy Alcohol use, unspecified with withdrawal delirium ([facility] [place]24, [facility] V28) COMPREHENSIVE METABOLIC PANEL Routine 06/06/2024 7:22 AM EDT Essential (primary) hypertension Type 2 diabetes mellitus without complications ([facility] V24, [facility] V28) Metabolic encephalopathy Alcohol use, unspecified with withdrawal delirium ([facility] V24, [facility] V28) documented in this encounter Results * (ABNORMAL) CBC auto differential (06/06/2024 7:22 AM EDT) [facility] WBC 9.4 4.8 - 10.8 K/mcL LAB HEMETOLOGY METHOD 06/06/2024 10:49 AM [facility] RBC 2.80(L) 4.50 - 5.50 M/mcL LAB HEMETOLOGY METHOD 06/06/2024 10:49 AM [facility] Hemoglobin 9.2(L) 13.5 - 17.5 g/dL LAB HEMETOLOGY METHOD 06/06/2024 10:49 AM [facility] Hematocrit 28.4(L) 42.0 - 54.0 % LAB HEMETOLOGY METHOD 06/06/2024 10:49 AM [facility] MCV 102.9(H) 79.0 - 98.0 FL LAB HEMETOLOGY METHOD 06/06/2024 10:49 AM [facility] MCH 33.3(H) 27.0 - 32.0 pcg LAB HEMETOLOGY METHOD 06/06/2024 10:49 AM [facility] MCHC 32.4 32.0 - 37.0 g/dL LAB HEMETOLOGY METHOD 06/06/2024 10:49 AM [facility] RDW 15.5(H) 11.0 - 15.0 % LAB HEMETOLOGY METHOD 06/06/2024 10:49 AM [facility] Platelets 505(H) 130 - 400 K/mcL LAB HEMETOLOGY METHOD 06/06/2024 10:49 AM [facility] MPV 10.2 7.0 - 11.0 FL LAB HEMETOLOGY METHOD 06/06/2024 10:49 AM [facility] NRBC 0.0 <1.0 % LAB HEMETOLOGY METHOD 06/06/2024 10:49 AM [facility] NRBC Absolute 0.00 <0.10 K/mcL LAB HEMETOLOGY METHOD 06/06/2024 10:49 AM [facility] Neutrophils Relative 71.0 % LAB HEMETOLOGY METHOD 06/06/2024 10:49 AM [facility] Lymphocytes Relative 13.6 % LAB HEMETOLOGY METHOD 06/06/2024 10:49 AM [facility] Monocytes Relative 7.0 % LAB HEMETOLOGY METHOD 06/06/2024 10:49 AM [facility] Eosinophils Relative 6.1 % LAB HEMETOLOGY METHOD 06/06/2024 10:49 AM [facility] Basophils Relative 1.1 % LAB HEMETOLOGY METHOD 06/06/2024 10:49 AM [facility] Immature Granulocytes Relative 1.2 % LAB HEMETOLOGY METHOD 06/06/2024 10:49 AM [facility] Neutrophils Absolute 6.66 1.50 - 7.00 K/mcL LAB HEMETOLOGY METHOD 06/06/2024 10:49 AM [facility] Lymphocytes Absolute 1.28 1.00 - 5.00 K/mcL LAB HEMETOLOGY METHOD 06/06/2024 10:49 AM [facility] Monocytes Absolute 0.66 0.20 - 1.00 K/mcL LAB HEMETOLOGY METHOD 06/06/2024 10:49 AM EDT [facility] Eosinophils Absolute 0.57(H) 0.00 - 0.50 K/mcL LAB HEMETOLOGY METHOD 06/06/2024 10:49 AM T [facility] Basophils Absolute 0.10 0.00 - 0.20 K/mcL LAB HEMETOLOGY METHOD 06/06/2024 10:49 AM EDT [facility] Immature Granulocytes Absolute 0.11(H) 0.00 - 0.03 K/mcL LAB HEMETOLOGY METHOD 06/06/2024 10:49 AM T [facility] Blood Venous blood specimen / Unknown Venipuncture / Unknown 06/06/2024 7:22 AM EDT 06/06/2024 9:08 AM EDT us Krishan Sotelo MD LAB BLOOD ORDERABLES Final Resul t [facility] [address] [place] [address], [place] [phone] * (ABNORMAL) Comprehensive metabolic panel (06/06/2024 7:22 AM EDT) Sodium 134 133 - 145 mmol/L LAB CHEMISTRY METHOD 06/06/2024 12:50 PM [facility] Potassium 4.0 3.5 - 5.5 mmol/L LAB CHEMISTRY METHOD 06/06/2024 12:50 PM [facility] Chloride 100 96 - 110 mmol/L LAB CHEMISTRY METHOD 06/06/2024 12:50 PM [facility] CO2 24 21 - 32 mmol/L LAB CHEMISTRY METHOD 06/06/2024 12:50 PM [facility] Anion Gap 10 3 - 11 LAB CHEMISTRY METHOD 06/06/2024 12:50 PM [facility] Glucose 146(H) 70 - 100 mg/dL LAB CHEMISTRY METHOD 06/06/2024 12:50 PM [facility] BUN 20 5 - 25 mg/dL LAB CHEMISTRY METHOD 06/06/2024 12:50 PM [facility] Creatinine 1.50(H) 0.70 - 1.30 mg/dL LAB CHEMISTRY METHOD 06/06/2024 12:50 PM [facility] eGFR 53(L) >=60 mL/min/1. 73m2 LAB CHEMISTRY METHOD 06/06/2024 12:50 PM [facility] Comment:Calculation based on the Chronic Kidney Disease Epidemiology Collaboration (CKD-EPI) equation refit without adjustment for race. BUN/Creatinine Ratio 13.3 LAB CHEMISTRY METHOD 06/06/2024 12:50 PM [facility] Calcium 9.4 8.5 - 10.5 mg/dL LAB CHEMISTRY METHOD 06/06/2024 12:50 PM [facility] AST (SGOT) 16 10 - 42 unit/L LAB CHEMISTRY METHOD 06/06/2024 12:50 PM [facility] ALT (SGPT) 15 10 - 60 unit/L LAB CHEMISTRY METHOD 06/06/2024 12:50 PM [facility] Alkaline Phosphatase 83 42 - 121 unit/L LAB CHEMISTRY METHOD 06/06/2024 12:50 PM [facility] Total Protein 7.1 6.0 - 8.0 g/dL LAB CHEMISTRY METHOD 06/06/2024 12:50 PM [facility] Albumin 3.3 3.2 - 5.0 g/dL LAB CHEMISTRY METHOD 06/06/2024 12:50 PM [facility] Total Bilirubin 0.4 0.0 - 1.4 mg/dL LAB CHEMISTRY METHOD 06/06/2024 12:50 PM [facility] Blood Venous blood specimen / Unknown Venipuncture / Unknown 06/06/2024 7:22 AM EDT 06/06/2024 9:08 AM EDT us Krishan Sotelo MD LAB BLOOD ORDERABLES Final Resul t [facility] [address] [place] [address], [place] [phone] documented in this encounter Visit Diagnoses Diagnosis Essential (primary) hypertension Unspecified essential hypertension Type 2 diabetes mellitus without complications ([facility] V24, [facility] V28) Metabolic encephalopathy Alcohol use, unspecified with withdrawal delirium ([facility] V24, [facility] V28) documented in this encounter Care Teams Tracer Powder Blender Relationship Specialty Start Date End Date Rita Fierro MD [address] [place] [address] PCP - General Internal Medicine 08/02/16 documented as of this encounter
--- OUTSIDE RECORDS SUMMARY | 2024-11-25 11:33 | XMS_ITS | Clinical Summary ---
Author Organization [facility] Facility Address [address] [address] Care Team Providers Care Chemical Supervisor Name Role Phone Rita Fierro MD [...] patient's age to complete this topic Insurance [facility] [place] [id number] Care Teams Chemical Supervisor Relationship Specialty Start Date End Date Rita Fierro MD [facility] [address] [place] [address] [phone] [place], [place] PCP - General 02/20/20
--- OUTSIDE RECORDS SUMMARY | 2024-11-25 11:33 | XMS_ITS | Data Portability ---
Author Organization [employer] [facility], [place] [employer] [facility] Address [address] [place] [address] Care Team Providers Care Byproducts Extractor Name Role Phone [facility] Referring Provider [phone] Assessment Encounter Date Assessment Date Assessment LastModified [...] a four hour ED wait time. VSS. Security Systems Administrator on site reports that he has tense [...] come and go. Upon presentation with the quality rep he was found to have an O2 [...] Assessment and Plan as documented by the Security Systems Administrator. I provided real-time medical direction via phone [...] flu (A+B) 2022 023 [email or web address] Main - [facility], [address] [place] [address], [phone] 17:54:47 rapid SARS CoV 2 Ag, QL IA, respiratory specimen 2022 023 [email or web address] [facility], [address] [place] [address], [phone] 3 17:54:47 Referral None recorded. Procedures None recorded. Surgeries None recorded. Imaging None recorded. Medication Orders furosemide 20 mg tablet 2022 023 [id number], [address] [place], [address], 3 15:12:40 Patient TargetsNo targets recorded. Patient InstructionsNo instructions recorded. Reason for Referral None Reported. Results Created Date Observation Date Name Description Value Unit Range Abnormal Flag Note LastModifiedBy Organization Detail LastModifiedTime 02/25/1902/25/2022 rapid SARS CoV 2 Ag, QL IA, respi rator y speci men rapid SARS CoV 2 Ag, QL IA, respiratory specimen negati ve Not Available [facility] [address] [place] [address], [phone] 02/25/2022 13:55:18 02/25/19 23 02/25/2022 rapid flu (A+B) Flu negati ve Not Available [facility] ed [address] [place] [address], [phone] 02/25/2022 13:55:16 Result Notes None recorded. Medical [...] Details Last Updated DateTime 3 98.1 [degF] 842696. 16 g 16 /min 93 % 93 % 86 /min 86 /min 16 /min 98.1 [degF] 93 % 93 % 077204. 16 g Not Available [employer] 3 15:31:07 Date Recorded Systolic And Diastolic Systolic And Diastolic Provider Name and Address Organization Details Last Updated DateTime 04/23/2022 139/87 mm[Hg] 139/87 mm[Hg] Not Available [facility] 04/23/2022 15:31:07 Date Recorded Body weight Respiratory rate Oxygen saturation Oxygen saturation in Arterial blood by Pulse oximetry Body temperature Heart rate Body temperature Heart rate Body weight Respiratory rate Oxygen saturation Oxygen saturation in Arterial blood by Pulse oximetry Provider Name and Address Organization Details Last Updated DateTime 3 780723. 08 g 14 /min 96 % 96 % 97.5 [degF] 75 /min 97.5 [degF] 75 /min 033528. 08 g 14 /min 96 % 96 % Not Available [employer] 3 17:28:39 Date Recorded Systolic And Diastolic Systolic And Diastolic Provider Name and Address Organization Details Last Updated DateTime 06/25/2022 141/78 mm[Hg] 141/78 mm[Hg] Not Available [facility] 06/25/2022 17:28:39 Date Recorded Body temperature Heart [...] /min 155/77 mm[Hg] 155/77 mm[Hg] Not Available [employer] 2 14:34:47 Date Recorded Respiratory rate Heart [...] Diagnosis SNOMED-CT Code Diagnosis ICD10 Code Diagnosis IMO Codes Diagnosis Note 2402 Nathaniel Mcconnell MD Main - [facility] [address] [place] [phone] 08/06/2021 17:15:40 10/15/2021 12:14:09 Altered mental status 702595079 R41.82 4312 [facility] [address] [place] [phone] 11/08/2021 13:18:37 11/08/2021 15:39:12 5077 Kristy Mosley MD Main - [facility] [address] [place] [phone] 12/12/2021 18:28:35 12/13/2021 14:59:56 Congestive heart failure 08742036 I50.9 56y M with CHF and chronic [...] 7091 Sienna Alatorre MD Main - [facility] [address] [place] [phone] 02/25/2022 13:53:52 03/04/2022 15:28:58 Hypoxia 007816245 R09.02 Congestive heart failure 57335088 I50.9 8530 Nathaniel Mcconnell MD Main - [facility] [address] [place] [phone] 04/23/2022 15:08:35 04/25/2022 10:49:48 Swelling of bilateral lower limbs 528857100 M79.89 53220 Kristy Mosley MD Main - [facility] [address] [place] [phone] 06/25/2022 17:15:30 06/26/2022 10:04:11 Dizziness [id number] R42 As noted, we were called to see this patient regarding concerns of dizziness. Evaluation in the field was performed by my quality rep colleague, as noted above, I provided real-time [...] Holm Member ID Guarantor Name 03/29/2024 1 [facility] - DOS PRIOR TO 2022 - DUAL ELIGIBLE (MEDICARE REPLACEMENT/ADV ANTAGE - HMO) Romaine Longoria [id number] Romaine Longoria 03/29/2024 1 [facility] - DOS ON OR AFTER 2022 - DUAL ELIGIBLE - LONGTERM OPTIONS AND ONE CARE (MEDICARE REPLACEMENT/ADV ANTAGE - HMO) Romaine Longoria [id number] Romaine Longoria Notes Date Note Type Note [...] .................... .................... .................... .................... .................... .................... . Security Systems Administrator Note: Sent to evaluate pt with poly [...] resolves with rest. Pt denies hx of [place]/CHF. Pt states urinary incontinence mentioned in intake note is chronic since prostate CA surgery and denies dysuria. Performed 12 lead and uploaded images to [employer]. Consulted [facility] who ordered POC CMP and then 20mg [...] .................... . Disposition: Fulfilled Lisa Dickson MD [address] [place] [address],[address], [place], [phone], [employer] 11/08/2021 15:39:10 12/12/2021 text/html HPI: Member discharged from [facility] on 11/22/21 for CHF exacerbation, started on HCTZ-Lisinopril. member reports was put on 1500mL fluid restriction. Member hasnt been drinking fluids and reports feeling dehydrated, throat dry mouth, tired and sleepy. BP taken twice 96/64, 102/72. Member will need evaluation .................... .................... .................... .................... .................... .................... .................... . CRC Nursing Assessment: Comments: CRC RN DID NOT NEED FURTHER INFO [facility] HPI: recent admission to hospital for CHF [...] and on discharge. Kristy Mosley MD [address] [facility],[address], [place], [phone], [employer] 12/12/2021 18:46:47 02/25/2022 text/html HPI: Romaine is [...] .................... .................... .................... .................... .................... .................... . Security Systems Administrator Note: Sent to evaluate pt with several [...] covid and rapid flu both negative. Consulted [facility] who agreed with this assessment that pt would benefit from further eval/imaging at ER. Placed 20g in L hand and activated EMS. Pt care transferred to [facility] and pt to be transported to [facility] ER. .................... .................... .................... .................... .................... .................... .................... . Disposition: Fulfilled Sienna Alatorre MD [address] [facility],[address], [place], [phone], [facility] [employer] [facility] 10/28/2022 17:55:02 04/23/2022 text/html HPI: 56 y/o with reports of 1 week of increased LE swelling, erythema, warmth, abrasions, fatigue. R/o LE cellulitis. .................... .................... .................... .................... .................... .................... .................... . CRC Nursing Assessment: Comments: Reviewed - Ryder CABALLERO .................... .................... .................... .................... .................... .................... .................... . Security Systems Administrator Note From Jerome Walls: DispatchEd to the [...] 241, POC labs obtained and sent to [facility]. pt denied recent falls / trauma , pt legs knees to angles swollen bi - lateral, right leg was red, neither was warm to touch or open wounds or weeping. (+/=) CSMS and pulses, [facility] contacted and ordered 40mg Lasix SIVP the pt was given a prescription to get him to his PCP appointment next week, supportive care and when to call 911 discussed. (- ) adverse on to medication administration .................... .................... .................... .................... .................... .................... .................... . 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 Romaine reports earlier in the day he [...] no further information needed to process visit [facility] HPI: recurrent dizziness for past year. established w pcp. checked sugar only after eating. cbg 215. normal is 150-250 for him. no chest pain, shortness of breath. feeling better now. feels like one of his normal episdoes............ .................... .................... .................... .................... .................... .................... .......... Security Systems Administrator Note From Edis Colon: Pt complains of [...] . POC BGL 215mg/dI and pt afebrile. [facility] contacted who agreed that pts episode likely attributed to his diabetes and instructed pt to follow up with PCP Pt educated on S/SX that would indicate 911/ED visit and it was suggested that pt keep log of these episodes and what his BGL is during each. .................... .................... .................... .................... .................... .................... .................... . Disposition: Fulfilled Kristy Mosley MD [address] [facility],[address], [place], [address], [employer] 06/25/2022 17:32:07
== END 2024-11-25 10:43 | disposition home or self-care (01) ==
LOC: HO.HMCFM 09:55
PROVIDERS: PCP Nurse Practitioner Family; Visit Provider Nurse Practitioner Family
DX: E11.621 Type 2 diabetes mellitus with foot ulcer (principal); Z79.4 Long term (current) use of insulin; L97.529 Non-pressure chronic ulcer of other part of left foot with unspecified severity; C61 Malignant neoplasm of prostate; Z23 Encounter for immunization; F10.11 Alcohol abuse, in remission; F17.200 Nicotine dependence, unspecified, uncomplicated

== ENCOUNTER → 2024-11-25 09:54 | Outpatient (BNVA) | payer MEDICARE, MEDICAID, SELFPAY | PROVIDERS: PCP Nurse Practitioner Family; Visit Provider Nurse Practitioner Family | DX: I25.10 Atherosclerotic heart disease of native coronary artery without angina pectoris (principal); E11.621 Type 2 diabetes mellitus with foot ulcer; L97.529 Non-pressure chronic ulcer of other part of left foot with unspecified severity; F41.9 Anxiety disorder, unspecified; K21.9 Gastro-esophageal reflux disease without esophagitis; E03.9 Hypothyroidism, unspecified; F10.11 Alcohol abuse, in remission; F17.210 Nicotine dependence, cigarettes, uncomplicated; Z85.46 Personal history of malignant neoplasm of prostate; Z85.828 Personal history of other malignant neoplasm of skin; Z79.4 Long term (current) use of insulin; Z79.84 Long term (current) use of oral hypoglycemic drugs; Z23 Encounter for immunization | CPT/HCPCS: 83036; 90471; 90656; 96127; 99212 ==

== ENCOUNTER → 2024-12-06 14:02 | Outpatient (REF) | payer MEDICARE, MEDICAID, SELFPAY ==
--- NOTE | 2024-12-06 14:04 | CA_ITS ---
Transthoracic Echocardiogram Patient (Last, First, Middle): Romaine Longoria, Gender: M Date of : 1965 Age: 59 Procedure Date: 12/06/2024 Procedure Type: Transthoracic Echocardiogram Location: OP Height: 180.34 cm Weight: 97.52 kg BSA: 2.17 m2 Heart Rate: bpm BP: 118 / 75 mmHg Viner Operator: JAMES/ASA Referring MD: Maya Bullard [facility] Symptoms: I50.30 - Unspecified diastolic (congestive) heart failure Study Quality: Adequate ECG Rhythm: Sinus Conclusions: - The left ventricular systolic function is normal. The calculated ejection fraction is 63% by biplane method. - The basal inferior and basal inferoseptal segments are akinetic. - No obvious valvular pathology seen on this study. - There is mild dilatation of the ascending aorta measuring 4.00 cm. Findings Left Ventricle Normal left ventricular cavity size. There is normal left ventricular wall thickness. The left ventricular systolic function is normal. The calculated ejection fraction is 63% by biplane method. There is no evidence of regional wall motion abnormalities. Evidence suggests grade I (mild) diastolic dysfunction. Wall Motion Rest Echo Findings The basal inferior and basal inferoseptal segments are akinetic. Right Ventricle Mildly increased right ventricular cavity size. There is normal right ventricular systolic function. Atria Both atria are normal in size. Aortic Valve There is a normal trileaflet aortic valve. There is no aortic valve stenosis. There is no aortic valve regurgitation. Mitral Valve The mitral valve appears normal. There is no mitral valve regurgitation. There is no mitral valve stenosis. Pulmonic Valve The pulmonic valve is likely normal. Tricuspid Valve There is mild tricuspid valve regurgitation. There is no evidence of pulmonary hypertension. Great Vessels The aortic arch is normal in size. There is mild dilatation of the ascending aorta measuring 4.00 cm. Venous The inferior vena cava is normal in size and collapses greater than 50% with inspiration. Pericardium/Pleural There is no evidence of pericardial effusion. Prior Study Comparison No prior study available for comparison. Recommendations, Care & Conclusions No obvious valvular pathology seen on this study. Measurements 2D Linear Measurements IVSd: 1.02 0.6-0.9/0.6-1.0 cm LVIDd: 4.75 3.9-5.3/4.2-5.9 cm LVIDd Index: 2.19 2.4-3.2/2.2-3.1 cm/m2 LVIDs: 3.08 2.0-3.6 cm LVPWd: 1.05 0.7-1.1 cm LA Diam: 4.20 2.7-3.8/3.0-4.0 cm LAIDs Index: 1.94 1.5-2.3 cm/m2 LV Mass: 218.44 67-162/88-224 g LV Mass Index: 100.67 43-95/49-115 g/m2 LVOT Diam: 2.30 3.0+(-)1.3 cm 2D Systolic Function EF 4C: 68.90 >55% EF 2C: 60.70 >55% EF BiP: 63.20 >55% Mitral Valve MV Pk E: 0.94 MV PK A: 1.21 MV Decel Time: 234.00 E/A: 0.80 E'Lateral: 6.74 E'Medial: 5.33 E/E' Med: 17.70 E/E' Lat: 14.00 PHT: 69.00 MVA PHT: 3.19 Decel [place]: 4.03 Aortic Valve AoV Pk Tarik: 1.15 AoV Mn Tarik: 0.75 AoV VTI: 0.22 AoV Pk Grad: 5.00 Aov Mn Grad: 3.00 SARTHAK Cont.VTI: 4.11 LVOT LVOT Pk Tarik: 1.03 LVOT Mn Tarik: 0.70 LVOT VTI: 0.21 LVOT Pk Grad: 4.00 LVOT Mn Grad: 2.00 LVOT Diam: 2.30 LVOT Area: 4.15 Diastolic Function MV Pk E: 0.94 MV Pk A: 1.21 E/A: 0.80 E'Medial: 5.33 E/E' Med: 17.70 E' Laterial: 6.74 E/E' Lat: 14.00 Right Ventricle TVS' Tarik: 12.70 Tricuspid Valve TR Pk Tarik: 2.41 TR Pk Grad: 23.00 RA Press: 3.00 RVSP: 26.00 Great Vessels Aorta Sinus of Valsalva: 4.20 2.0-3.5 cm Ao Asc: 4.00 2.1-3.4 cm Ao Arch: 3.70 Pulmonary Veins Pulm Vein S/D 1.20 Pulmonary Valve PV Pk Tarik: 0.72 Peak PV Grad: 2.00 Updated in Other Vendor System with Status of Final Andrew Esposito MD electronically signed on 12/07/2024 11:02:35 AM with status of Final
--- OUTSIDE RECORDS SUMMARY | 2024-12-06 18:25 | XMS_ITS | Clinical Summary ---
Author Organization [facility] Address [address] [place] [address] Care Team Providers Care Pulmonary Fellow Name Role Phone Rita Fierro MD Primary [...] age to complete this topic Care Teams Pulmonary Fellow Relationship Specialty Start Date End Date Rita Fierro MD [address] [place] [address] [place] [address] PCP - General Internal Medicine 08/02/16
--- OUTSIDE RECORDS SUMMARY | 2024-12-06 18:25 | XMS_ITS | Encounter Summary ---
Author Organization [facility] Address [address] [place] [address] Care Team Providers Care Pediatric Physician Name Role Phone Rita Fierro MD Primary Care Provide r Encounter Details Date Type Department Care Team (Late st Contact Info) Description 06/06/2024 Lab Requisition [facility] - Main Lab [address] [facility] [place] [address] Krishan Sotelo MD [address] [place] [address] 204 [facility] [phone] Essential (primary) hypertension; Type 2 diabetes [...] 2 diabetes mellitus without complications (CMS/HCC V24, [facility] V28) Metabolic encephalopathy Alcohol use, unspecified with withdrawal delirium ([facility] V24, [facility] V28) COMPREHENSIVE METABOLIC PANEL Routine 06/06/2024 7:22 AM EDT Essential (primary) hypertension Type 2 diabetes mellitus without complications ([facility] V24, [facility] V28) Metabolic encephalopathy Alcohol use, unspecified with withdrawal delirium ([facility] V24, [facility] V28) documented in this encounter Results * (ABNORMAL) CBC auto differential (06/06/2024 7:22 AM EDT) [facility] WBC 9.4 4.8 - 10.8 K/mcL LAB HEMETOLOGY METHOD 06/06/2024 10:49 AM [facility] LAB RBC 2.80(L) 4.50 - 5.50 M/mcL LAB HEMETOLOGY METHOD 06/06/2024 10:49 AM [facility] LAB Hemoglobin 9.2(L) 13.5 - 17.5 g/dL LAB HEMETOLOGY METHOD 06/06/2024 10:49 AM [facility] LAB Hematocrit 28.4(L) 42.0 - 54.0 % LAB HEMETOLOGY METHOD 06/06/2024 10:49 AM [facility] LAB MCV 102.9(H) 79.0 - 98.0 FL LAB HEMETOLOGY METHOD 06/06/2024 10:49 AM [facility] LAB MCH 33.3(H) 27.0 - 32.0 pcg LAB HEMETOLOGY METHOD 06/06/2024 10:49 AM [facility] LAB MCHC 32.4 32.0 - 37.0 g/dL LAB HEMETOLOGY METHOD 06/06/2024 10:49 AM [facility] LAB RDW 15.5(H) 11.0 - 15.0 % LAB HEMETOLOGY METHOD 06/06/2024 10:49 AM [facility] LAB Platelets 505(H) 130 - 400 K/mcL LAB HEMETOLOGY METHOD 06/06/2024 10:49 AM [facility] LAB MPV 10.2 7.0 - 11.0 FL LAB HEMETOLOGY METHOD 06/06/2024 10:49 AM [facility] LAB NRBC 0.0 <1.0 % LAB HEMETOLOGY METHOD 06/06/2024 10:49 AM [facility] LAB NRBC Absolute 0.00 <0.10 K/mcL LAB HEMETOLOGY METHOD 06/06/2024 10:49 AM [facility] LAB Neutrophils Relative 71.0 % LAB HEMETOLOGY METHOD 06/06/2024 10:49 AM [facility] LAB Lymphocytes Relative 13.6 % LAB HEMETOLOGY METHOD 06/06/2024 10:49 AM [facility] LAB Monocytes Relative 7.0 % LAB HEMETOLOGY METHOD 06/06/2024 10:49 AM [facility] LAB Eosinophils Relative 6.1 % LAB HEMETOLOGY METHOD 06/06/2024 10:49 AM [facility] LAB Basophils Relative 1.1 % LAB HEMETOLOGY METHOD 06/06/2024 10:49 AM [facility] LAB Immature Granulocytes Relative 1.2 % LAB HEMETOLOGY METHOD 06/06/2024 10:49 AM [facility] LAB Neutrophils Absolute 6.66 1.50 - 7.00 K/mcL LAB HEMETOLOGY METHOD 06/06/2024 10:49 AM [facility] LAB Lymphocytes Absolute 1.28 1.00 - 5.00 K/mcL LAB HEMETOLOGY METHOD 06/06/2024 10:49 AM [facility] LAB Monocytes Absolute 0.66 0.20 - [...] Resul t [facility] [address] [place] [address], [place] [phone] * (ABNORMAL) Comprehensive metabolic panel (06/06/2024 7:22 AM EDT) Sodium 134 133 - 145 mmol/L LAB CHEMISTRY METHOD 06/06/2024 12:50 PM [facility] Potassium 4.0 3.5 - 5.5 mmol/L LAB CHEMISTRY METHOD 06/06/2024 12:50 PM [facility] Chloride 100 96 - [...] 12:50 PM [facility] Total Bilirubin 0.4 0.0 - 1.4 mg/dL LAB CHEMISTRY METHOD 06/06/2024 12:50 PM [facility] LAB Blood Venous blood specimen / Unknown Venipuncture / Unknown 06/06/2024 7:22 AM EDT 06/06/2024 9:08 AM EDT us Krishan Sotelo MD LAB BLOOD ORDERABLES Final Resul t [facility] [address] [place] [address], [place] [phone] documented in this encounter Visit Diagnoses Diagnosis Essential (primary) hypertension Unspecified essential hypertension Type 2 diabetes mellitus without complications (CMS/[facility] V24, [facility] V28) Metabolic encephalopathy Alcohol use, unspecified with withdrawal delirium ([facility] V24, [facility] V28) documented in this encounter Care Teams Pediatric Physician Relationship Specialty Start Date End Date Rita Fierro MD [address] [place] [address] PCP - General Internal Medicine 08/02/16 documented as of this encounter
--- OUTSIDE RECORDS SUMMARY | 2024-12-06 18:25 | XMS_ITS | Encounter Summary ---
Author Organization [facility] Address [address] [place] [address] Care Team Providers Care High School Science Tutor Name Role Phone Rita Fierro MD Primary Care Provide r Encounter Details Date Type Department Care Team (Late st Contact Info) Description 06/08/2024 Lab Requisition [facility] - Main Lab [address] [facility] [place] [address] Krishan Sotelo MD [address] [place] [address] [address] [place], [address] Type 2 diabetes mellitus without complications [...] 2 diabetes mellitus without complications (CMS/HCC V24, CMS/[facility] V28) documented in this encounter Results * (ABNORMAL) Hemoglobin A1c (06/08/2024 7:34 AM EDT) Hemoglobin A1C 7.1(H) <6.5 % LAB CHEMISTRY METHOD 06/08/2024 12:47 PM EDT [facility] Mean Bld Glu Estim. 157 mg/dL LAB CHEMISTRY METHOD 06/08/2024 12:47 PM EDT [facility] LAB Blood Venous blood specimen / Unknown Venipuncture / Unknown 06/08/2024 7:34 AM EDT 06/08/2024 10:04 AM EDT us Krishan Sotelo MD LAB BLOOD ORDERABLES Final Resul t [facility] LAB [address] [place] [address], documented in this encounter Visit Diagnoses Diagnosis Type 2 diabetes mellitus without complications (CMS/HCC V24, CMS/HCC V28) documented in this encounter Care Teams High School Science Tutor Relationship Specialty Start Date End Date Rita Fierro MD [address] [place] [address] [place] PCP - General Internal Medicine 08/02/16 documented as of this encounter
--- OUTSIDE RECORDS SUMMARY | 2024-12-06 18:25 | XMS_ITS | Encounter Summary ---
Author Organization [facility] Address [address] [place] [address] Care Team Providers Care Hair Blender Name Role Phone Rita Fierro MD Primary Care Provide r Encounter Details Date Type Department Care Team Description 02/21/[address] [facility] Oncology Services [address] [place] [address] Ramon Hoskins, [facility] Social History Tobacco Use Types Packs/Day Years [...] on filedocumented in this encounter Care Teams Hair Blender Relationship Specialty Start Date End Date Rita Fierro MD [address] [place] [address] PCP - General Internal Medicine 08/02/16 documented as of this encounter
--- OUTSIDE RECORDS SUMMARY | 2024-12-06 18:26 | XMS_ITS | Clinical Summary ---
Author Organization [employer] Address [address] [facility] [address] [place] [address] Care Team Providers Care Supply Chain Procurement Manager Name Role Phone Unavailable Primary Care Provider [...] patient's age to complete this topic Insurance [facility] MEDICARE ADVANTAGE
--- OUTSIDE RECORDS SUMMARY | 2024-12-06 18:26 | XMS_ITS | Clinical Summary ---
Author Organization [facility] Address [address] [address] Care Team Providers Care Corn Grower Name Role Phone Rita Fierro MD Primary [...] patient's age to complete this topic Insurance [facility] [place] [id number] Care Teams Corn Grower Relationship Specialty Start Date End Date Rita Fierro MD [facility] [address] [place] [address] [address] [place], [place] PCP - General 02/20/20
--- OUTSIDE RECORDS SUMMARY | 2024-12-06 18:26 | XMS_ITS | Data Portability ---
Author Organization [employer] [facility] [place], [place] inDesecuritrex [facility] Address [address] [place] [address] Care Team Providers Care Program Engineer Name Role Phone [facility] Referring Provider Assessment Encounter Date Assessment Date Assessment LastModified [...] a four hour ED wait time. VSS. Structural Welder on site reports that he has tense [...] come and go. Upon presentation with the material reprocessing associate he was found to have an O2 [...] Assessment and Plan as documented by the Structural Welder. I provided real-time medical direction via phone [...] flu (A+B) 2022 023 [email or web address] Main - [facility], [address] [place] [address], [phone] 17:54:47 rapid SARS CoV 2 Ag, QL IA, respiratory specimen 2022 023 [email or web address] [facility] [address] [place] [address], [phone] 3 17:54:47 Referral None recorded. Procedures None recorded. Surgeries None recorded. Imaging None recorded. Medication Orders furosemide 20 mg tablet 2022 023 [id number], [address] [place], [address], 3 15:12:40 Patient TargetsNo targets recorded. Patient InstructionsNo instructions recorded. Reason for Referral None Reported. Results Created Date Observation Date Name Description Value Unit Range Abnormal Flag Note LastModifiedBy Organization Detail LastModifiedTime 02/25/1902/25/2022 rapid SARS CoV 2 Ag, QL IA, respi rator y speci men rapid SARS CoV 2 Ag, QL IA, respiratory specimen negati ve Not Available [facility] [address] [place] [address], [phone] 02/25/2022 13:55:18 02/25/19 23 02/25/2022 rapid flu (A+B) Flu negati ve Not Available [facility] [address] [place] [address], [phone] 02/25/2022 13:55:16 Result Notes None recorded. Medical [...] Details Last Updated DateTime 3 98.1 [degF] 338756. 16 g 16 /min 93 % 93 % 86 /min 86 /min 16 /min 98.1 [degF] 93 % 93 % 055947. 16 g Not Available [employer] 3 15:31:07 Date Recorded Systolic And Diastolic Systolic And Diastolic Provider Name and Address Organization Details Last Updated DateTime 04/23/2022 139/87 mm[Hg] 139/87 mm[Hg] Not Available [employer] 04/23/2022 15:31:07 Date Recorded Body weight Respiratory rate Oxygen saturation Oxygen saturation in Arterial blood by Pulse oximetry Body temperature Heart rate Body temperature Heart rate Body weight Respiratory rate Oxygen saturation Oxygen saturation in Arterial blood by Pulse oximetry Provider Name and Address Organization Details Last Updated DateTime 3 670930. 08 g 14 /min 96 % 96 % 97.5 [degF] 75 /min 97.5 [degF] 75 /min 410044. 08 g 14 /min 96 % 96 % Not Available [employer] 3 17:28:39 Date Recorded Systolic And Diastolic Systolic And Diastolic Provider Name and Address Organization Details Last Updated DateTime 06/25/2022 141/78 mm[Hg] 141/78 mm[Hg] Not Available [employer] 06/25/2022 17:28:39 Date Recorded Body temperature Heart [...] /min 155/77 mm[Hg] 155/77 mm[Hg] Not Available [employer] Future 2 14:34:47 Date Recorded Respiratory rate Heart [...] 2402 Nathaniel Mcconnell MD Main - [facility] [address] [place] [phone] 08/06/2021 17:15:40 10/15/2021 12:14:09 Altered mental status [id number] R41.82 4312 [facility] [address] [place] [phone] 11/08/2021 13:18:37 11/08/2021 15:39:12 5077 Kristy Mosley MD Main - [facility] [address] [place] [phone] 12/12/2021 18:28:35 12/13/2021 14:59:56 Congestive heart failure 14012281 I50.9 56y M with CHF and chronic [...] 7091 Sienna Alatorre MD Main - [facility] [address] [place] [phone] 02/25/2022 13:53:52 03/04/2022 15:28:58 Hypoxia 793774256 R09.02 Congestive heart failure 66605267 I50.9 8530 Nathaniel Mcconnell MD Main - [facility] [address] [place] [phone] 04/23/2022 15:08:35 04/25/2022 10:49:48 Swelling of bilateral lower limbs 189475516 M79.89 27184 Kristy Mosley MD Main - [facility] [address] [place] [phone] 06/25/2022 17:15:30 06/26/2022 10:04:11 Dizziness 223062686 R42 As noted, we were called to see this patient regarding concerns of dizziness. Evaluation in the field was performed by my material reprocessing associate colleague, as noted above, I provided real-time [...] Holm Member ID Guarantor Name 03/29/2024 1 [facility] - DOS PRIOR TO 2022 - DUAL ELIGIBLE (MEDICARE REPLACEMENT/ADV ANTAGE - HMO) Romaine Longoria [id number] Romaine Longoria 03/29/2024 1 [facility] - DOS ON OR AFTER 2022 - DUAL ELIGIBLE - CARE HOME OPTIONS AND ONE CARE (MEDICARE REPLACEMENT/ADV ANTAGE - HMO) Romaine Longoria [id number] Romaine Longoria Notes Date Note Type Note [...] .................... .................... .................... .................... .................... .................... . Structural Welder Note: Sent to evaluate pt with poly [...] resolves with rest. Pt denies hx of FL/CHF. Pt states urinary incontinence mentioned in intake note is chronic since prostate CA surgery and denies dysuria. Performed 12 lead and uploaded images to [employer]. Consulted [facility] who ordered POC CMP and then 20mg [...] .................... . Disposition: Fulfilled Lisa Dickson MD [address] [place] [address],[address], [place], [phone], [employer] 11/08/2021 15:39:10 12/12/2021 text/html HPI: Member discharged from [facility] on 11/22/21 for CHF exacerbation, started on HCTZ-Lisinopril. member reports was put on 1500mL fluid restriction. Member hasnt been drinking fluids and reports feeling dehydrated, throat dry mouth, tired and sleepy. BP taken twice 96/64, 102/72. Member will need evaluation .................... .................... .................... .................... .................... .................... .................... . CRC Nursing Assessment: Comments: CRC RN DID NOT NEED FURTHER INFO [facility] HPI: recent admission to hospital for CHF [...] and on discharge. Kristy Mosley MD [address] [facility],[address], [place], [phone], [employer] 12/12/2021 18:46:47 02/25/2022 text/html HPI: Romaine is [...] .................... .................... .................... .................... .................... .................... . Structural Welder Note: Sent to evaluate pt with several [...] covid and rapid flu both negative. Consulted [facility] who agreed with this assessment that pt would benefit from further eval/imaging at ER. Placed 20g in L hand and activated EMS. Pt care transferred to [facility] and pt to be transported to [facility] ER. .................... .................... .................... .................... .................... .................... .................... . Disposition: Fulfilled Sienna Alatorre MD [address] [facility],[address], [place], [address], [facility] 10/28/2022 17:55:02 04/23/2022 text/html HPI: 56 y/o with reports of 1 week of increased LE swelling, erythema, warmth, abrasions, fatigue. R/o LE cellulitis. .................... .................... .................... .................... .................... .................... .................... . CRC Nursing Assessment: Comments: Reviewed - Ryder CABALLERO .................... .................... .................... .................... .................... .................... .................... . Structural Welder Note From Jerome Walls: DispatchEd to the [...] 241, POC labs obtained and sent to [facility]. pt denied recent falls / trauma , pt legs knees to angles swollen bi - lateral, right leg was red, neither was warm to touch or open wounds or weeping. (+/=) CSMS and pulses, [facility] contacted and ordered 40mg Lasix SIVP the pt was given a prescription to get him to his PCP appointment next week, supportive care and when to call 911 discussed. (- ) adverse on to medication administration .................... .................... .................... .................... .................... .................... .................... . Disposition: Fulfilled Nathaniel Mcconnell MD [address] [facility],[address], [place], [address], [employer] 07/24/2022 14:52:33 06/25/2022 text/html HPI: Romaine is a 56 y/o male, seen for VV today by MAINTAINER OPERATOR. Romaine reports earlier in the day [...] no further information needed to process visit [facility] HPI: recurrent dizziness for past year. established w pcp. checked sugar only after eating. cbg 215. normal is 150-250 for him. no chest pain, shortness of breath. feeling better now. feels like one of his normal episdoes............ .................... .................... .................... .................... .................... .................... .......... Structural Welder Note From Edis Colon: Pt complains of [...] . POC BGL 215mg/dI and pt afebrile. [facility] contacted who agreed that pts episode likely attributed to his diabetes and instructed pt to follow up with PCP Pt educated on S/SX that would indicate 911/ED visit and it was suggested that pt keep log of these episodes and what his BGL is during each. .................... .................... .................... .................... .................... .................... .................... . Disposition: Fulfilled Kristy Mosley MD [address] [facility],[address], [place], [address], CAROL ANN PELLETIER 06/25/2022 17:32:07
--- OUTSIDE RECORDS SUMMARY | 2024-12-06 18:26 | XMS_ITS | Clinical Summary ---
Author Organization [facility] Address [address] [place] [address] Phone Care Team Providers Care Transcribing Machine Mechanic Name Role Phone Rita Fierro MD Primary [...] topic Medical Devices Not on file Insurance [facility] CARE MEDICARE REPLACEMENT Member Subscriber Plan / Payer (Ef fective 2021-Present) Name:Romaine Longoria Relation to Subscriber:Self Name:Romaine Longoria Payer ID:[id number] (NAIC) Group ID:[id number] Type:Medicare [address]: [address] [facility] ONE CARE MEDICARE REPL[place] [address] [address] [place] [address] CARE MEDICARE REPLACEMENT [facility] CARE MEDICARE REPLACEMENT [facility] CARE MEDICARE REPLACEMENT [facility] CARE MEDICARE REPLACEMENT [facility] CARE MEDICARE REPLACEMENT [facility] ONE CARE MEDICARE REPLACEMENT JULIET VALDIVIA [facility] Advance Directives For more information, please contact: [phone] (9AM - 5PM [facility], Thursday-Thursday) Documents on File Type Date Recorded Patient Aircraft Painter Expl anation Healthcare Proxy 08/27/2015 11:01 AM * Full Code (Presumed) (Latest Code Status on File) Date Activated Date Inactivated Comments 08/22/2015 11:35 AM 08/24/2015 10:39 AM Care Teams Transcribing Machine Mechanic Relationship Specialty Start Date End Date Rita Fierro MD [address] [place] [address] PCP - General Internal Medicine 01/12/15 Additional Source Comments The information contained in this document represents components of the legal health record. It is not the complete legal health record.[facility]
--- OUTSIDE RECORDS SUMMARY | 2024-12-06 18:26 | XMS_ITS | Clinical Summary ---
Author Organization [facility] Address [address] [place] [address] Phone Care Team Providers Care Gut Snatcher Name Role Phone Rita Fierro MD Primary [...] EDT Type 2 diabetes mellitus without complications ([facility] V24, [facility] V28) COMPREHENSIVE METABOLIC PANEL Routine 06/06/2024 7:22 AM EDT Essential (primary) hypertension Type 2 diabetes mellitus without complications ([facility] V24, [facility] V28) Metabolic encephalopathy Alcohol use, unspecified with withdrawal delirium ([facility] V24, [facility] V28) from Last 3 Months or Most Recently Relevant to Health Maintenance Results * (ABNORMAL) Hemoglobin A1c (06/08/2024 7:34 AM EDT) Hemoglobin A1C 7.1(H) <6.5 % LAB CHEMISTRY METHOD 06/08/2024 12:47 PM EDT [facility] Mean Bld Glu Estim. 157 mg/dL LAB CHEMISTRY METHOD 06/08/2024 12:47 PM EDT [facility] Blood Venous blood specimen / Unknown Venipuncture / Unknown 06/08/2024 7:34 AM EDT 06/08/2024 10:04 AM EDT us Krishan Sotelo MD LAB BLOOD ORDERABLES Final Resul t [facility] [address] [place] [address], * (ABNORMAL) Comprehensive metabolic panel (06/06/2024 7:22 AM EDT) Sodium 134 133 - 145 mmol/L LAB CHEMISTRY METHOD 06/06/2024 12:50 PM EDT [facility] Potassium 4.0 3.5 - 5.5 mmol/L LAB CHEMISTRY METHOD 06/06/2024 12:50 PM EDT [facility] Chloride 100 96 - 110 mmol/L LAB CHEMISTRY METHOD 06/06/2024 12:50 PM [facility] CO2 24 21 - 32 mmol/L LAB CHEMISTRY METHOD 06/06/2024 12:50 PM [facility] Anion Gap 10 3 - 11 LAB CHEMISTRY METHOD 06/06/2024 12:50 PM [facility] Glucose 146(H) 70 - 100 mg/dL LAB CHEMISTRY METHOD 06/06/2024 12:50 PM [facility] BUN 20 5 - 25 mg/dL LAB CHEMISTRY METHOD 06/06/2024 12:50 PM [facility] Creatinine 1.50(H) 0.70 - 1.30 mg/dL LAB CHEMISTRY METHOD 06/06/2024 12:50 PM [facility] eGFR 53(L) >=60 mL/min/1. 73m2 LAB CHEMISTRY METHOD 06/06/2024 12:50 PM [facility] Comment:Calculation based on the Chronic Kidney Disease Epidemiology Collaboration (CKD-EPI) equation refit without adjustment for race. BUN/Creatinine Ratio 13.3 LAB CHEMISTRY METHOD 06/06/2024 12:50 PM [facility] Calcium 9.4 8.5 - 10.5 mg/dL LAB CHEMISTRY METHOD 06/06/2024 12:50 PM [facility] AST (SGOT) 16 10 - 42 unit/L LAB CHEMISTRY METHOD 06/06/2024 12:50 PM [facility] ALT (SGPT) 15 10 - 60 unit/L LAB CHEMISTRY METHOD 06/06/2024 12:50 PM [facility] Alkaline Phosphatase 83 42 - 121 unit/L LAB CHEMISTRY METHOD 06/06/2024 12:50 PM [facility] Total Protein 7.1 6.0 - 8.0 g/dL LAB CHEMISTRY METHOD 06/06/2024 12:50 PM [facility] Albumin 3.3 3.2 - 5.0 g/dL LAB CHEMISTRY METHOD 06/06/2024 12:50 PM EDT [facility] Total Bilirubin 0.4 0.0 - 1.4 mg/dL LAB CHEMISTRY METHOD 06/06/2024 12:50 PM EDT [facility] Blood Venous blood specimen / Unknown Venipuncture / Unknown 06/06/2024 7:22 AM EDT 06/06/2024 9:08 AM EDT us Krishan Sotelo MD LAB BLOOD ORDERABLES Final Resul t [facility] [address] [place] [address], from Last 3 Months or Most Recently Relevant to Health Maintenance Insurance [employer] MEDICARE MEDICAID - [place] Advance Directives Documents on File Type Date 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
== END ==
LOC: HO.CARD 14:02
PROVIDERS: PCP Nurse Practitioner Family; Visit Provider Nurse Practitioner Family
DX: I50.30 Unspecified diastolic (congestive) heart failure (principal); I27.20 Pulmonary hypertension, unspecified; I25.10 Atherosclerotic heart disease of native coronary artery without angina pectoris; R07.9 Chest pain, unspecified
CPT/HCPCS: 93306

== ENCOUNTER → 2024-12-06 14:04 | Outpatient (BNV) | payer MEDICARE, MEDICAID, SELFPAY | PROVIDERS: PCP Nurse Practitioner Family; Visit Provider Internal Medicine | DX: I51.89 Other ill-defined heart diseases (principal); I77.810 Thoracic aortic ectasia; I36.1 Nonrheumatic tricuspid (valve) insufficiency | CPT/HCPCS: 93306 ==

== ENCOUNTER 2024-12-13 08:35 | Outpatient (AMB) | payer MEDICARE, MEDICAID, SELFPAY ==
--- NOTE | 2024-12-13 08:51 | A.OFFVIS_ITS ---
Intake Visit Reasons: elevated PSA Intake Note: New patient presents today for initial visit for elevated PSA * 10/25 PSA: 142.94 Urology Medication:Tamsulosin Blood Thinner:None Antibiotic Allergies:None Allergies No Known Allergies Allergy (Verified 12/13/24 08:52) HPI Comments Details: Romaine is a pleasant male. He is a patient of Dr. Andersen. He is seen for the following urologic conditions - prostate cancer - rising PSA following treatment Presents with rising PSA following treatment for prostate cancer New to this office PSA 11/03 143 Prior treatment for prostate cancer Recommend staging with PET-CT for bony metastases Initiate antiandrogen therapy with bicalutamide Prostate cancer Patient states he had treatment at [facility] with external beam radiation number of years ago Dropped out of follow-up Can not remember his last PSA Significant comorbidities include nicotine dependence with poorly controlled diabetes, CKD 3, depression, vasculopathy and alcohol dependence PFSH Medical History History of osteomyelitis Spinal stenosis Hydrocele Hx of gout Umbilical hernia Diverticular disease History of MRSA infection of lungs History of alcohol withdrawal delirium Anxiety with depression Critical illness myopathy Nasal septal defect ETOH abuse Throat cancer Surgical History History of surgery on lower extremity H/O excision of mass Family History Father No problems noted. Mother No problems noted. Social History Household Members: None Housing: House Do you presently have visiting nurse or other home services: Yes Alcohol intake: current Alcohol intake frequency: 3 or more drinks per day Alcohol type: beer Comment: 1:1 sitter Patient Tobacco Use Status: Current everyday Tobacco user Tobacco use type: Cigarette Cigarettes Per Day: 10 e-Cigarette/Vaping Use: Never Used Second Hand Smoke Exposure: No service: No Current occupational status: retired Current occupational exposures/hazards: No Cognitive needs: No Hearing needs: No Vision needs: No Review of Systems Const Denies chills and Denies fever(s) Card Reports no additional complaints and Denies syncope Resp Denies cough GI Denies abdominal pain and Denies heartburn Reports as per HPI and Denies change in libido Neuro Denies syncope Psych Denies change in libido Endo Denies change in libido Physical Exam Const General: cooperative, healthy appearing, comfortable and no acute distress Orientation/consciousness: patient oriented x3 HEENT Face and sinus: Yes normal facial exam Mouth: moist mucous membranes Neck Neck: Yes normal visual inspection, Yes full ROM and Yes trachea midline Chest Chest palpation & inspection: normal inspection of the chest Resp Effort & Inspection: normal respiratory effort, able to speak in complete sentences and no respiratory distress GI Inspection: Yes normal to inspection Back/Spine/Pelvis Cervical Spine: normal cervical lordosis Thoracic/Lumbar Spine: thoracic and lumbar spine normal to inspection Skin General skin exam: no rashes or lesions noted Neuro General: patient oriented x3, gait normal, tone normal and moves all extremities Extrem General: Yes normal to inspection and Yes capillary refill normal Assessment & Plan Assessment & Plan (1) Prostate CA: Code(s): C61 - Malignant neoplasm of prostate Category: Medical (2) Rising PSA following treatment for malignant neoplasm of prostate: Code(s): R97.21 - Rising PSA following treatment for malignant neoplasm of prostate Category: Medical Plan Obtain pathology records from [facility] and any radiation oncology notes PET-CT for staging with high-risk recurrence of prostate cancer Bicalutamide Orders: Orders PET CT fusion skull to thigh Today C61 - Malignant neoplasm of prostate, R97.21 - Rising PSA following treatment for malignant neoplasm of prostate Medications: New bicalutamide 50 mg PO DAILY 90 tabs 0RF 90 days C61 - Malignant neoplasm of prostate, R97.21 - Rising PSA following treatment for malignant neoplasm of prostate Patient Instructions: This note is constructed using voice recognition software. While every effort has been made to ensure accuracy central office operator errors may have been included. Imaging studies, laboratory and physical exam results were discussed and reviewed in detail. No major barriers to patient understanding were identified. An opportunity to ask questions regarding the treatment plan was provided. All questions were answered. The patient expressed understanding and agreement with the above treatment plan. The patient is aware they should contact our office by phone for worsening of their current condition or the appearance of new urologic symptoms. Compliance is encouraged with any medications and followup testing that is ordered. It is a privilege to participate in the urologic care of your patient. If you have any questions or concerns regarding treatment for the above conditions, or other urologic issues, please do not hesitate to contact me. The office telephone contact is [phone]. Sincerely, Dr Alexys Vigil MD, [facility] - Urology Compassionate Specialist Care for the Genitourinary System Coding Level of Care Code New Pt Level 4 (10314) Diagnoses Prostate CA C61 Rising PSA following treatment for malignant neoplasm of prostate R97.21
--- OUTSIDE RECORDS SUMMARY | 2024-12-13 08:58 | XMS_ITS | Clinical Summary ---
Author Organization [facility] Address [address] [address] Care Team Providers Care Gym Supervisor Name Role Phone Rita Fierro MD [...] to complete this topic Insurance [facility] [place]ET [place] [id number] Care Teams Gym Supervisor Relationship Specialty Start Date End Date Rita Fierro MD [facility] [address] [place] [address] [phone] [place], [place] PCP - General 02/20/20
--- OUTSIDE RECORDS SUMMARY | 2024-12-13 08:58 | XMS_ITS | Clinical Summary ---
Author Organization [employer] Address [address] [facility] [address] [place] [address] Care Team Providers Care Forging Dies Final Finisher Name Role Phone Unavailable Primary Care Provider [...] patient's age to complete this topic Insurance [facility] MEDICARE ADVANTAGE
--- OUTSIDE RECORDS SUMMARY | 2024-12-13 08:58 | XMS_ITS | Encounter Summary ---
Author Organization [facility] Address [address] [place] [address] Care Team Providers Care Teacher Hearing Impaired Name Role Phone Rita Fierro MD Primary Care Provide r Encounter Details Date Type Department Care Team (Late st Contact Info) Description 06/06/2024 Lab Requisition [facility] - Main Lab [address] [facility] [place] [address] Krishan Sotelo MD [address] [place] [address] 204 [facility] [phone] Essential (primary) hypertension; Type 2 diabetes [...] 2 diabetes mellitus without complications (CMS/HCC V24, [facility] V28) Metabolic encephalopathy Alcohol use, unspecified with withdrawal delirium ([facility] V24, [facility] V28) COMPREHENSIVE METABOLIC PANEL Routine 06/06/2024 7:22 AM EDT Essential (primary) hypertension Type 2 diabetes mellitus without complications ([facility] V24, [facility] V28) Metabolic encephalopathy Alcohol use, unspecified with withdrawal delirium ([facility] V24, [facility] V28) documented in this encounter Results * (ABNORMAL) CBC auto differential (06/06/2024 7:22 AM EDT) [facility] WBC 9.4 4.8 - 10.8 K/mcL LAB HEMETOLOGY METHOD 06/06/2024 10:49 AM [facility] RBC 2.80(L) 4.50 - 5.50 M/mcL LAB HEMETOLOGY METHOD 06/06/2024 10:49 AM [facility] Hemoglobin 9.2(L) 13.5 - 17.5 g/dL LAB HEMETOLOGY METHOD 06/06/2024 10:49 AM [facility] Hematocrit 28.4(L) 42.0 - 54.0 % LAB HEMETOLOGY METHOD 06/06/2024 10:49 AM [facility] MCV 102.9(H) 79.0 - 98.0 FL LAB HEMETOLOGY METHOD 06/06/2024 10:49 AM [facility] MCH 33.3(H) 27.0 - 32.0 pcg LAB HEMETOLOGY METHOD 06/06/2024 10:49 AM [facility] MCHC 32.4 32.0 - 37.0 g/dL LAB HEMETOLOGY METHOD 06/06/2024 10:49 AM [facility] RDW 15.5(H) 11.0 - 15.0 % LAB HEMETOLOGY METHOD 06/06/2024 10:49 AM [facility] Platelets 505(H) 130 - 400 K/mcL LAB HEMETOLOGY METHOD 06/06/2024 10:49 AM [facility] MPV 10.2 7.0 - 11.0 FL LAB HEMETOLOGY METHOD 06/06/2024 10:49 AM [facility] NRBC 0.0 <1.0 % LAB HEMETOLOGY METHOD 06/06/2024 10:49 AM [facility] NRBC Absolute 0.00 <0.10 K/mcL LAB HEMETOLOGY METHOD 06/06/2024 10:49 AM [facility] Neutrophils Relative 71.0 % LAB HEMETOLOGY METHOD 06/06/2024 10:49 AM [facility] Lymphocytes Relative 13.6 % LAB HEMETOLOGY METHOD 06/06/2024 10:49 AM [facility] Monocytes Relative 7.0 % LAB HEMETOLOGY METHOD 06/06/2024 10:49 AM [facility] Eosinophils Relative 6.1 % LAB HEMETOLOGY METHOD 06/06/2024 10:49 AM [facility] Basophils Relative 1.1 % LAB HEMETOLOGY METHOD 06/06/2024 10:49 AM [facility] Immature Granulocytes Relative 1.2 % LAB HEMETOLOGY METHOD 06/06/2024 10:49 AM [facility] Neutrophils Absolute 6.66 1.50 - 7.00 K/mcL LAB HEMETOLOGY METHOD 06/06/2024 10:49 AM [facility] Lymphocytes Absolute 1.28 1.00 - 5.00 K/mcL LAB HEMETOLOGY METHOD 06/06/2024 10:49 AM [facility] Monocytes Absolute 0.66 0.20 - 1.00 K/mcL LAB HEMETOLOGY METHOD 06/06/2024 10:49 AM EDT [facility] Eosinophils Absolute 0.57(H) 0.00 - 0.50 K/mcL LAB HEMETOLOGY METHOD 06/06/2024 10:49 AM T [facility] Basophils Absolute 0.10 0.00 - 0.20 K/mcL LAB HEMETOLOGY METHOD 06/06/2024 10:49 AM EDT [facility] Immature Granulocytes Absolute 0.11(H) 0.00 - 0.03 K/mcL LAB HEMETOLOGY METHOD 06/06/2024 10:49 AM T [facility] Blood Venous blood specimen / Unknown Venipuncture / Unknown 06/06/2024 7:22 AM EDT 06/06/2024 9:08 AM EDT us Krishan Sotelo MD LAB BLOOD ORDERABLES Final Resul t [facility] [address] [place] [address], [place] [phone] * (ABNORMAL) Comprehensive metabolic panel (06/06/2024 7:22 AM EDT) Sodium 134 133 - 145 mmol/L LAB CHEMISTRY METHOD 06/06/2024 12:50 PM [facility] Potassium 4.0 3.5 - 5.5 mmol/L LAB CHEMISTRY METHOD 06/06/2024 12:50 PM [facility] Chloride 100 96 - 110 mmol/L LAB CHEMISTRY METHOD 06/06/2024 12:50 PM [facility] CO2 24 21 - 32 mmol/L LAB CHEMISTRY METHOD 06/06/2024 12:50 PM [facility] Anion Gap 10 3 - 11 LAB CHEMISTRY METHOD 06/06/2024 12:50 PM [facility] Glucose 146(H) 70 - 100 mg/dL LAB CHEMISTRY METHOD 06/06/2024 12:50 PM [facility] BUN 20 5 - 25 mg/dL LAB CHEMISTRY METHOD 06/06/2024 12:50 PM [facility] Creatinine 1.50(H) 0.70 - 1.30 mg/dL LAB CHEMISTRY METHOD 06/06/2024 12:50 PM [facility] eGFR 53(L) >=60 mL/min/1. 73m2 LAB CHEMISTRY METHOD 06/06/2024 12:50 PM [facility] Comment:Calculation based on the Chronic Kidney Disease Epidemiology Collaboration (CKD-EPI) equation refit without adjustment for race. BUN/Creatinine Ratio 13.3 LAB CHEMISTRY METHOD 06/06/2024 12:50 PM [facility] Calcium 9.4 8.5 - 10.5 mg/dL LAB CHEMISTRY METHOD 06/06/2024 12:50 PM [facility] AST (SGOT) 16 10 - 42 unit/L LAB CHEMISTRY METHOD 06/06/2024 12:50 PM [facility] ALT (SGPT) 15 10 - 60 unit/L LAB CHEMISTRY METHOD 06/06/2024 12:50 PM [facility] Alkaline Phosphatase 83 42 - 121 unit/L LAB CHEMISTRY METHOD 06/06/2024 12:50 PM [facility] Total Protein 7.1 6.0 - 8.0 g/dL LAB CHEMISTRY METHOD 06/06/2024 12:50 PM [facility] Albumin 3.3 3.2 - 5.0 g/dL LAB CHEMISTRY METHOD 06/06/2024 12:50 PM [facility] Total Bilirubin 0.4 0.0 - 1.4 mg/dL LAB CHEMISTRY METHOD 06/06/2024 12:50 PM [facility] Blood Venous blood specimen / Unknown Venipuncture / Unknown 06/06/2024 7:22 AM EDT 06/06/2024 9:08 AM EDT us Krishan Sotelo MD LAB BLOOD ORDERABLES Final Resul t [facility] [address] [place] [address], [place] [phone] documented in this encounter Visit Diagnoses Diagnosis Essential (primary) hypertension Unspecified essential hypertension Type 2 diabetes mellitus without complications ([facility] V24, [facility] V28) Metabolic encephalopathy Alcohol use, unspecified with withdrawal delirium ([facility] V24, [facility] V28) documented in this encounter Care Teams Teacher Hearing Impaired Relationship Specialty Start Date End Date Rita Fierro MD [address] [place] [address] PCP - General Internal Medicine 08/02/16 documented as of this encounter
--- OUTSIDE RECORDS SUMMARY | 2024-12-13 08:58 | XMS_ITS | Clinical Summary ---
Author Organization [facility] Address [address] [place] [address] Phone Care Team Providers Care Supervisor Chemical Name Role Phone Rita Fierro MD Primary [...] topic Medical Devices Not on file Insurance [employer] [place]IC[employer] REPLACEMENT Member Subscriber Plan / Payer (Ef fective 2021-Present) Name:Romaine Longoria Relation to Subscriber:Self Name:Romaine Longoria Payer ID:[id number] (NAIC) Group ID:[id number] Type:Medicare [address] [facility] ONE CARE MEDICARE REPLACEMENT [address] [place] [address] C[address] [place] [address] CARE MEDICARE REPLACEMENT [employer] [place] [employer] MED[employer]ARE REPLACEMENT [employer] [place] [employer] MED[employer]ARE REPLACEMENT [employer] [place] [employer] MED[employer]PLACEMENT [employer] [place] [employer] MEDICARE REPLACEMENT [facility] ONE CARE MEDICARE REPLACEMENT JULIET VALDIVIA [facility] Advance Directives For more information, please contact: [phone] (9AM - 5PM [facility], Thursday-Thursday) Documents on File Type Date Recorded 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 It is not the complete legal health record.[facility]
--- OUTSIDE RECORDS SUMMARY | 2024-12-13 08:58 | XMS_ITS | Clinical Summary ---
Author Organization [address] [facility] Address [address] [place] [address] Phone Care Team Providers Care Home Health Clinical Supervisor Name Role Phone Rita Fierro MD [...] EDT Type 2 diabetes mellitus without complications ([facility] V24, [facility] V28) COMPREHENSIVE METABOLIC PANEL Routine 06/06/2024 7:22 AM EDT Essential (primary) hypertension Type 2 diabetes mellitus without complications ([facility] V24, [facility] V28) Metabolic encephalopathy Alcohol use, unspecified with withdrawal delirium ([facility] V24, [facility] V28) from Last 3 Months or Most Recently Relevant to Health Maintenance Results * (ABNORMAL) Hemoglobin A1c (06/08/2024 7:34 AM EDT) Hemoglobin A1C 7.1(H) <6.5 % LAB CHEMISTRY METHOD 06/08/2024 12:47 PM EDT [facility] Mean Bld Glu Estim. 157 mg/dL LAB CHEMISTRY METHOD 06/08/2024 12:47 PM EDT [facility] Blood Venous blood specimen / Unknown Venipuncture / Unknown 06/08/2024 7:34 AM EDT 06/08/2024 10:04 AM EDT us Krishan Sotelo MD LAB BLOOD ORDERABLES Final Resul t [facility] [address] [place] [address], * (ABNORMAL) Comprehensive metabolic panel (06/06/2024 7:22 AM EDT) Sodium 134 133 - 145 mmol/L LAB CHEMISTRY METHOD 06/06/2024 12:50 PM EDT [facility] Potassium 4.0 3.5 - 5.5 mmol/L LAB CHEMISTRY METHOD 06/06/2024 12:50 PM EDT [facility] Chloride 100 96 - [...] LAB CHEMISTRY METHOD 06/06/2024 12:50 PM EDT [facility] Total Bilirubin 0.4 0.0 - 1.4 mg/dL LAB CHEMISTRY METHOD 06/06/2024 12:50 PM EDT [facility] Blood Venous blood specimen / Unknown Venipuncture / Unknown 06/06/2024 7:22 AM EDT 06/06/2024 9:08 AM EDT us Krishan Sotelo MD LAB BLOOD ORDERABLES Final Resul t [facility] [address] [place] [address], from Last 3 Months or Most Recently Relevant to Health Maintenance Insurance [employer] MEDICARE [place]ICA[place] - [place] Advance Directives Documents on File Type Date 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
--- OUTSIDE RECORDS SUMMARY | 2024-12-13 08:58 | XMS_ITS | Encounter Summary ---
Author Organization [facility] Address [address] [place] [address] Care Team Providers Care Tile Setter Apprentice Name Role Phone Rita Fierro MD Primary Care Provide r Encounter Details Date Type Department Care Team Description 02/21/2022 Social Work [facility] [address] [place] [address] Ramon Hoskins, [facility] Social History Tobacco Use Types Packs/Day Years [...] on filedocumented in this encounter Care Teams Tile Setter Apprentice Relationship Specialty Start Date End Date Rita Fierro MD [address] [place] [address] PCP - General Internal Medicine 08/02/16 documented as of this encounter
--- OUTSIDE RECORDS SUMMARY | 2024-12-13 08:58 | XMS_ITS | Encounter Summary ---
Author Organization [facility] Address [address] [place] [address] Care Team Providers Care Wait Staff Name Role Phone Rita Fierro MD Primary Care Provide r Encounter Details Date Type Department Care Team (Late st Contact Info) Description 06/08/2024 Lab Requisition [facility] - Main Lab 299 [facility] [place] [address] Krishan Sotelo MD [address] [place] [address] [address] [place], [phone] Type 2 diabetes mellitus without complications [...] 2 diabetes mellitus without complications (CMS/HCC V24, [facility] V28) documented in this encounter Results * (ABNORMAL) Hemoglobin A1c (06/08/2024 7:34 AM EDT) Hemoglobin A1C 7.1(H) <6.5 % LAB CHEMISTRY METHOD 06/08/2024 12:47 PM EDT [facility] Mean Bld Glu Estim. 157 mg/dL LAB CHEMISTRY METHOD 06/08/2024 12:47 PM EDT [facility] Blood Venous blood specimen / Unknown Venipuncture / Unknown 06/08/2024 7:34 AM EDT 06/08/2024 10:04 AM EDT us Krishan Sotelo MD LAB BLOOD ORDERABLES Final Resul t [facility] [address] [place] [address], documented in this encounter Visit Diagnoses Diagnosis Type 2 diabetes mellitus without complications (CMS/HCC V24, CMS/HCC V28) documented in this encounter Care Teams Wait Staff Relationship Specialty Start Date End Date Rita Fierro MD [address] [place] [address] [place] PCP - General Internal Medicine 08/02/16 documented as of this encounter
--- OUTSIDE RECORDS SUMMARY | 2024-12-13 08:58 | XMS_ITS | Clinical Summary ---
Author Organization [facility] Address [address] [place] [address] Care Team Providers Care Cereal Miller Name Role Phone Rita Fierro MD Primary [...] age to complete this topic Care Teams Cereal Miller Relationship Specialty Start Date End Date Rita Feirro MD [address] [place] [address] [place] [address] PCP - General Internal Medicine 08/02/16
== END 2024-12-13 09:06 | disposition home or self-care (01) ==
LOC: HO.HUSH 08:35
PROVIDERS: PCP Nurse Practitioner Family; Visit Provider Urology
DX: C61 Malignant neoplasm of prostate (principal); R97.21 Rising PSA following treatment for malignant neoplasm of prostate
CPT/HCPCS: 99204

== ENCOUNTER → 2024-12-13 08:35 | Outpatient (BNVA) | payer MEDICARE, MEDICAID, SELFPAY | PROVIDERS: PCP Nurse Practitioner Family; Visit Provider Urology | DX: R97.21 Rising PSA following treatment for malignant neoplasm of prostate (principal); C61 Malignant neoplasm of prostate | CPT/HCPCS: 99202 ==

== ENCOUNTER → 2024-12-19 08:07 | Outpatient (REF) | payer MEDICARE, MEDICAID, SELFPAY ==
--- NOTE | ~2024-12-19 | NM_ITS ---
EXERCISE MYOCARDIAL PERFUSION STUDY INDICATION: Diastolic heart failure to evaluate for myocardial ischemia TECHNIQUE: The patient was brought in for an exercise perfusion study on 12/19/2024. Patient performed exercise as per Abhishek protocol and was injected 30 mCi of sestamibi once target heart rate was achieved. Images were obtained using the SPECT gamma camera interlaced with the gating device. Images were obtained in supine position. Resting perfusion study was performed on 12/20/2024. Patient was administered 30 mCi of sestamibi intravenously at rest. Images were then obtained in supine position. Images were processed with the software and compared side to side in short axis, horizontal long axis and vertical long axis views. Images obtained without without CT attenuation. Total DLP 75 mGy-cm FINDINGS: Raw images were reviewed The stress perfusion study showed nonattenuated images show absent uptake in the basal and mid inferior wall as well as moderately to severely reduced uptake in the inferoapical wall of the LV myocardium. Attenuated corrected images show absent uptake in the basal inferior wall of the LV myocardium with mildly reduced uptake in the mid inferior wall of the LV myocardium. The gated study shows normal LV systolic function with calculated LVEF of 75%. LV cavity is mildly dilated in size. The gated study shows absent wall thickening and contraction of basal inferior segments. Resting study shows no change in perfusion pattern compared to stress perfusion study. Gating at rest reveals inferior basal wall motion normality with ejection fraction at 62%. The findings are consistent with [transmural infarct of the basal inferior wall, with no evidence of reversible ischemia NM/NM cardiolite stress test IMPRESSION: 1. Myocardial perfusion imaging study shows transmural infarct in the basal inferior wall with no evidence of ischemia in other segments. 2. Gated LVEF is 62%. 3. Transient ischemic dilatation not present. EKG revealed negative for ischemia. Electronically signed by: Jony Laughlin MD 12/20/2024 12:23 PM [facility]
--- NOTE | 2024-12-19 08:09 | CA_ITS ---
Acquisition Time: 2024-12-19 08:16:27 Total Exercise Time: 00:07:16 Test Indications: CP Medications: SEE H&P Protocol: BELKYS Max HR: 126 BPM 78% of Pred: 160 BPM Max BP: 170/80 mmHG Max Work Load: 8.1 METS Exercise stress test with exercise 7 mins 16 secs of Belkys Protocol, achieving 78% MPHR, with reports of severe SOB, no chest pain, with isolated PACs, with normotensive response to exercise. Without any EKG changes meeting criteria for ischemia. In recovery, pt's breathing slowly improved to baseline. Nuclear images pending. Test reviewed with Dr. Laughlin. Referred By: Maya Bullard Electronically Signed By: John Sandoval
--- OUTSIDE RECORDS SUMMARY | 2024-12-19 08:25 | XMS_ITS | Clinical Summary ---
Author Organization [facility] Address [address] [place] [address] Care Team Providers Care Jack Spinner Name Role Phone Rita Fierro MD Primary [...] age to complete this topic Care Teams Jack Spinner Relationship Specialty Start Date End Date Rita Fierro MD [address] [place] [address] [place] [address] PCP - General Internal Medicine 08/02/16
--- OUTSIDE RECORDS SUMMARY | 2024-12-19 08:26 | XMS_ITS | Encounter Summary ---
Author Organization [facility] Address [address] [place] [address] Care Team Providers Care Curb Setter Helper Name Role Phone Rita Fierro MD Primary Care Provide r Encounter Details Date Type Department Care Team (Late st Contact Info) Description 06/06/[address] [facility] - Main Lab 299 [facility] [place] [address] Krishan Sotelo MD [address] [place] [address] 204 [facility] [phone] Essential (primary) hypertension; Type 2 [...] 2 diabetes mellitus without complications (CMS/HCC V24, [facility] V28) Metabolic encephalopathy Alcohol use, unspecified with withdrawal delirium ([facility] V24, [facility] V28) COMPREHENSIVE METABOLIC PANEL Routine 06/06/2024 7:22 AM EDT Essential (primary) hypertension Type 2 diabetes mellitus without complications ([facility] V24, [facility] V28) Metabolic encephalopathy Alcohol use, unspecified with withdrawal delirium ([facility] V24, [facility] V28) documented in this encounter Results * (ABNORMAL) CBC auto differential (06/06/2024 7:22 AM EDT) [facility] WBC 9.4 4.8 - 10.8 K/mcL LAB HEMETOLOGY METHOD 06/06/2024 10:[address] [facility] RBC 2.80(L) 4.50 - 5.50 M/mcL LAB HEMETOLOGY METHOD 06/06/2024 10:[address] [facility] Hemoglobin 9.2(L) 13.5 - 17.5 g/dL LAB HEMETOLOGY METHOD 06/06/2024 10:[address] [facility] Hematocrit 28.4(L) 42.0 - 54.0 % LAB HEMETOLOGY METHOD 06/06/2024 10:[address] [facility] MCV 102.9(H) 79.0 - 98.0 FL LAB HEMETOLOGY METHOD 06/06/2024 10:[address] [facility] MCH 33.3(H) 27.0 - 32.0 pcg LAB HEMETOLOGY METHOD 06/06/2024 10:[address] [facility] MCHC 32.4 32.0 - 37.0 g/dL LAB HEMETOLOGY METHOD 06/06/2024 10:[address] [facility] RDW 15.5(H) 11.0 - 15.0 % LAB HEMETOLOGY METHOD 06/06/2024 10:[address] [facility] Platelets 505(H) 130 - 400 K/mcL LAB HEMETOLOGY METHOD 06/06/2024 10:[address] [facility] MPV 10.2 7.0 - 11.0 FL LAB HEMETOLOGY METHOD 06/06/2024 10:[address] [facility] NRBC 0.0 <1.0 % LAB HEMETOLOGY METHOD 06/06/2024 10:[address] [facility] NRBC Absolute 0.00 <0.10 K/mcL LAB HEMETOLOGY METHOD 06/06/2024 10:[address] [facility] Neutrophils Relative 71.0 % LAB HEMETOLOGY METHOD 06/06/2024 10:[address] [facility] Lymphocytes Relative 13.6 % LAB HEMETOLOGY METHOD 06/06/2024 10:[address] [facility] Monocytes Relative 7.0 % LAB HEMETOLOGY METHOD 06/06/2024 10:[address] [facility] Eosinophils Relative 6.1 % LAB HEMETOLOGY METHOD 06/06/2024 10:[address] [facility] Basophils Relative 1.1 % LAB HEMETOLOGY METHOD 06/06/2024 10:[address] [facility] Immature Granulocytes Relative 1.2 % LAB HEMETOLOGY METHOD 06/06/2024 10:[address] [facility] Neutrophils Absolute 6.66 1.50 - 7.00 K/mcL LAB HEMETOLOGY METHOD 06/06/2024 10:[address] [facility] Lymphocytes Absolute 1.28 1.00 - 5.00 K/mcL LAB HEMETOLOGY METHOD 06/06/2024 10:[address] [facility] Monocytes Absolute 0.66 0.20 - 1.00 K/mcL LAB HEMETOLOGY METHOD 06/06/2024 10:49 AM EDT [facility] Eosinophils Absolute 0.57(H) 0.00 - 0.50 K/mcL LAB HEMETOLOGY METHOD 06/06/2024 10:49 AM T [facility] Basophils Absolute 0.10 0.00 - 0.20 K/mcL LAB HEMETOLOGY METHOD 06/06/2024 10:49 AM EDT [facility] Immature Granulocytes Absolute 0.11(H) 0.00 - 0.03 K/mcL LAB HEMETOLOGY METHOD 06/06/2024 10:49 AM T [facility] Blood Venous blood specimen / Unknown Venipuncture / Unknown 06/06/2024 7:22 AM EDT 06/06/2024 9:08 AM EDT us Krishan Sotelo MD LAB BLOOD ORDERABLES Final Resul t [facility] [address] [place] [address], [place] [phone] * (ABNORMAL) Comprehensive metabolic panel (06/06/2024 7:22 AM EDT) Sodium 134 133 - 145 mmol/L LAB CHEMISTRY METHOD 06/06/2024 12:[address] [facility] Potassium 4.0 3.5 - 5.5 mmol/L LAB CHEMISTRY METHOD 06/06/2024 12:[address] [facility] Chloride 100 96 - 110 mmol/L LAB CHEMISTRY METHOD 06/06/2024 12:[address] [facility] CO2 24 21 - 32 mmol/L LAB CHEMISTRY METHOD 06/06/2024 12:[address] [facility] Anion Gap 10 3 - 11 LAB CHEMISTRY METHOD 06/06/2024 12:[address] [facility] Glucose 146(H) 70 - 100 mg/dL LAB CHEMISTRY METHOD 06/06/2024 12:[address] [facility] BUN 20 5 - 25 mg/dL LAB CHEMISTRY METHOD 06/06/2024 12:[address] [facility] Creatinine 1.50(H) 0.70 - 1.30 mg/dL LAB CHEMISTRY METHOD 06/06/2024 12:[address] [facility] eGFR 53(L) >=60 mL/min/1. 73m2 LAB CHEMISTRY METHOD 06/06/2024 12:[address] [facility] Comment:Calculation based on the Chronic Kidney Disease Epidemiology Collaboration (CKD-EPI) equation refit without adjustment for race. BUN/Creatinine Ratio 13.3 LAB CHEMISTRY METHOD 06/06/2024 12:[address] [facility] Calcium 9.4 8.5 - 10.5 mg/dL LAB CHEMISTRY METHOD 06/06/2024 12:[address] [facility] AST (SGOT) 16 10 - 42 unit/L LAB CHEMISTRY METHOD 06/06/2024 12:[address] [facility] ALT (SGPT) 15 10 - 60 unit/L LAB CHEMISTRY METHOD 06/06/2024 12:[address] [facility] Alkaline Phosphatase 83 42 - 121 unit/L LAB CHEMISTRY METHOD 06/06/2024 12:[address] [facility] Total Protein 7.1 6.0 - 8.0 g/dL LAB CHEMISTRY METHOD 06/06/2024 12:[address] [facility] Albumin 3.3 3.2 - 5.0 g/dL LAB CHEMISTRY METHOD 06/06/2024 12:[address] [facility] Total Bilirubin 0.4 0.0 - 1.4 mg/dL LAB CHEMISTRY METHOD 06/06/2024 12:[address] [facility] Blood Venous blood specimen / Unknown Venipuncture / Unknown 06/06/2024 7:22 AM EDT 06/06/2024 9:08 AM EDT us Krishan Sotelo MD LAB BLOOD ORDERABLES Final Resul t [facility] [address] [place] [address], [place] [phone] documented in this encounter Visit Diagnoses Diagnosis Essential (primary) hypertension Unspecified essential hypertension Type 2 diabetes mellitus without complications ([facility] V24, CMS/[facility] V28) Metabolic encephalopathy Alcohol use, unspecified with withdrawal delirium (CMS/[facility] V24, CMS/[facility] V28) documented in this encounter Care Teams Curb Setter Helper Relationship Specialty Start Date End Date Rita Fierro MD [address] [place] [address] PCP - General Internal Medicine 08/02/16 documented as of this encounter
--- OUTSIDE RECORDS SUMMARY | 2024-12-19 08:26 | XMS_ITS | Clinical Summary ---
Author Organization [employer] Address [address] [facility] 7[address] [place] [address] Care Team Providers Care Coat Operator Name Role Phone Unavailable Primary Care Provider [...] patient's age to complete this topic Insurance [facility] [place] [address]
--- OUTSIDE RECORDS SUMMARY | 2024-12-19 08:26 | XMS_ITS | Clinical Summary ---
Author Organization [facility] Address [address] [address] Care Team Providers Care Signing Teacher Name Role Phone Rita Fierro MD Primary [...] patient's age to complete this topic Insurance [facility] [place]ET [place]DIV[place] [phone] Care Teams Signing Teacher Relationship Specialty Start Date End Date Rita Fierro MD [facility] [address] [place] [address] [address] [place], [place] PCP - General 02/20/20
--- OUTSIDE RECORDS SUMMARY | 2024-12-19 08:26 | XMS_ITS | Encounter Summary ---
Author Organization [facility] Address [address] [place] [address] Care Team Providers Care Garbage Man Name Role Phone Rita Fierro MD Primary Care Provide r Encounter Details Date Type Department Care Team (Late st Contact Info) Description 06/08/[address] [facility] - Main Lab [address] [facility] [place] [address] Krishan Sotelo MD [address] [place] [address] [address] [place], [address] Type 2 diabetes mellitus without complications [...] 2 diabetes mellitus without complications (CMS/HCC V24, CMS/[facility] V28) documented in this encounter Results * (ABNORMAL) Hemoglobin A1c (06/08/2024 7:34 AM EDT) Hemoglobin A1C 7.1(H) <6.5 % LAB CHEMISTRY METHOD 06/08/2024 12:47 PM EDT [facility] ([facility]) [facility] Mean Bld Glu Estim. 157 mg/dL LAB CHEMISTRY METHOD 06/08/2024 12:47 PM EDT [facility] Blood Venous blood specimen / Unknown Venipuncture / Unknown 06/08/2024 7:34 AM EDT 06/08/2024 10:04 AM EDT us Krishan Sotelo MD LAB BLOOD ORDERABLES Final Resul t [facility] [address] [place] [address], documented in this encounter Visit Diagnoses Diagnosis Type 2 diabetes mellitus without complications (CMS/HCC V24, CMS/HCC V28) documented in this encounter Care Teams Garbage Man Relationship Specialty Start Date End Date Rita Feirro MD [address] [place] [address] [place] PCP - General Internal Medicine 08/02/16 documented as of this encounter
--- OUTSIDE RECORDS SUMMARY | 2024-12-19 08:26 | XMS_ITS | Encounter Summary ---
Author Organization [facility] Address [address] [place] [address] Care Team Providers Care Clinical Pharmacist Name Role Phone Rita Fierro MD Primary Care Provide r Encounter Details Date Type Department Care Team Description 02/21/2022 Social Work [facility] [address] [place] [address] Ramon Hoskins, [facility] Social History Tobacco Use Types Packs/Day Years [...] on filedocumented in this encounter Care Teams Clinical Pharmacist Relationship Specialty Start Date End Date Rita Fierro MD [address] [place] [id number] PCP - General Internal Medicine 08/02/16 documented as of this encounter
--- OUTSIDE RECORDS SUMMARY | 2024-12-19 08:26 | XMS_ITS | Clinical Summary ---
Author Organization [facility] Address [address] [place] [address] Phone Care Team Providers Care Road Repairer Name Role Phone Rita Fierro MD Primary [...] EDT Type 2 diabetes mellitus without complications ([facility] V24, [facility] V28) COMPREHENSIVE METABOLIC PANEL Routine 06/06/2024 7:22 AM EDT Essential (primary) hypertension Type 2 diabetes mellitus without complications ([facility] V24, [facility] V28) Metabolic encephalopathy Alcohol use, unspecified with withdrawal delirium ([facility] V24, [facility] V28) from Last 3 [...] Final Resul t [facility] [address] [place] [address], * (ABNORMAL) Comprehensive metabolic panel (06/06/2024 7:22 [...] MD LAB BLOOD ORDERABLES Final Resul t [facility] [address] [place] [address], from Last 3 Months or Most Recently Relevant to Health Maintenance Insurance [employer] [place] [address] MEDICAID - [place] Advance Directives Documents on File Type Date Recorded Patient Revenue Stamp Clerk Expl anation Health Care Decision (hx) 09/27/2018 [...] (hx) 09/27/2018 AD GARCIA DIRECTIVE Care Teams Road Repairer Relationship Specialty Start Date End Date Rita Fierro MD [address] [place] [address] [place] PCP - General Internal Medicine 08/02/16
--- OUTSIDE RECORDS SUMMARY | 2024-12-19 08:26 | XMS_ITS | Clinical Summary ---
Author Organization [facility] Address [address] [employer] [address] [place] [address] Phone Care Team Providers Care Engine Lathe Set Up Operator Tool Name Role Phone Rita Fierro MD Primary [...] topic Medical Devices Not on file Insurance [facility] CARE MEDICARE REPLACEMENT Member Subscriber Plan / Payer (Ef fective 2021-Present) Name:Romaine Longoria Relation to Subscriber:Self Name:Romaine Longoria Payer ID:[id number] (NAIC) Group ID:[id number] Type:Medicare [address] [facility] ONE CARE MEDICARE REPLAC[place] [address] [place] [id number] [address] [place] [place] [address] [place] [address] CARE MEDICARE REPLACEMENT [facility] CARE MEDICARE REPLACEMENT [facility] CARE MEDICARE REPLACEMENT [facility] CARE MEDICARE REPLACEMENT [facility] CARE MEDICARE REPLACEMENT [facility] ONE CARE MEDICARE REPLACEMENT JULIET VALDIV[facility] Advance Directives For more information, please contact: [phone] (9AM - 5PM [facility], Thursday-Thursday) Documents on File Type Date Recorded Patient Gift Consultant Expl anation Healthcare Proxy 08/27/2015 11:01 AM * Full Code (Presumed) (Latest Code Status on File) Date Activated Date Inactivated Comments 08/22/2015 11:35 AM 08/24/2015 10:39 AM Care Teams Engine Lathe Set Up Operator Tool Relationship Specialty Start Date End Date Rita Fierro MD [address] [place] [address] PCP - General Internal Medicine 01/12/15 Additional Source Comments The information contained in this document represents components of the legal health record. It is not the complete legal health record.[facility]
== END ==
LOC: HO.CARD 08:07
PROVIDERS: PCP Nurse Practitioner Family; Visit Provider Nurse Practitioner Family
DX: I25.10 Atherosclerotic heart disease of native coronary artery without angina pectoris (principal); I50.30 Unspecified diastolic (congestive) heart failure; I27.20 Pulmonary hypertension, unspecified; R07.9 Chest pain, unspecified
CPT/HCPCS: 78452; 93017; A9500; J0280; J2785

== ENCOUNTER → 2024-12-19 08:09 | Outpatient (BNV) | payer MEDICARE, MEDICAID, SELFPAY | PROVIDERS: PCP Nurse Practitioner Family | DX: I49.1 Atrial premature depolarization (principal); R06.02 Shortness of breath | CPT/HCPCS: 78452; 93016; 93018 ==

== ENCOUNTER 2024-12-26 13:49 | Outpatient (AMB) | payer MEDICARE, MEDICAID, SELFPAY ==
--- NOTE | 2024-12-26 13:50 | A.OFFVIS_ITS ---
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/ Valeria Norton/BEATRICE, pulm htn/ cp Intake Note: New patient BEATRICE, pulmonary HTN CP c/o some chest pain at rest Prekindergarten Teacher Required: No Allergies No Known Allergies Allergy (Verified 12/13/24 08:52) Medication List - Last Reconciled 12/26/24 by Jony Laughlin MD acamprosate 666 mg (2 x 333 mg) PO TID alcohol swabs (Alcohol Prep Pads) topically; use 1 prep pad to clean skin prior to injections up to 5 x daily atorvastatin (Lipitor) 10 mg PO BEDTIME bicalutamide 50 mg PO DAILY 90 days blood sugar diagnostic (Accu-Chek Guide test strips) use once daily As directed to monitor blood sugars blood-glucose meter (Accu-Chek Guide Glucose Meter) Use once daily As directed to monitor blood sugars blood-glucose sensor (CipherApps G7 Sensor device) Use daily As directed dulaglutide (Trulicity) 0.75 mg (0.5 mL) subcut QWEEK empagliflozin (Jardiance) 10 mg PO DAILY fluticasone propion-salmeterol 250-50 mcg/dose 1 ea inhalation BID fluticasone propionate 50 mcg/actuation 1 spray intranasal DAILY folic acid 1 mg PO DAILY insulin glargine (Lantus Solostar U-100 Insulin) 10 units (0.1 mL) subcut BEDTIME lancets (Accu-Chek Softclix Lancets) use once daily As directed to monitor blood sugars levothyroxine 200 mcg PO DAILY@0600 losartan 50 mg PO DAILY metformin 500 mg PO BID metoprolol succinate ER 50 mg PO DAILY mometasone 0.1% 1 appl topical DAILY montelukast 10 mg PO DAILY omeprazole 20 mg PO DAILY@0630 pen needle, diabetic Use daily As directed pregabalin 75 mg PO BID sertraline 100 mg PO DAILY tamsulosin (Flomax) 0.4 mg PO BEDTIME zinc oxide 20% 1 ea topical DAILY HPI Comments Details: Elder was referred here for evaluation because of chest pain syndrome as well as noted coronary calcium on a chest CTA done for lung purposes. Patient subsequently had an echocardiogram which showed wall motion abnormality in his basal inferior and basal inferoseptal wall and following that a stress test which showed basal inferior infarct without any ischemia. Patient does not recall ever having prior myocardial infarction. He has multiple risk factors for coronary disease including hypertension, diabetes, hyperlipidemia as well as smoking. Patient complains of burning discomfort in his chest mostly at nighttime when he is trying to rest. He is not sure whether this is heartburn. 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 He is currently not on a baby aspirin therapy. He has prior history of alcohol abuse, but says that he has completely quit alcohol for about 1 year. Family history for coronary artery disease in his brothers. Patient denies any lightheadedness, syncope. No orthopnea, PND, leg edema. No symptoms of claudication. No prolonged palpitation irregular heartbeat. [facility] Medical History History of osteomyelitis Spinal stenosis Hydrocele Hx of gout Umbilical hernia Diverticular disease History of MRSA infection of lungs History of alcohol withdrawal delirium Anxiety with depression Critical illness myopathy Nasal septal defect ETOH abuse Throat cancer Surgical History History of surgery on lower extremity H/O excision of mass Family History Father No problems noted. Mother No problems noted. Social History Household Members: None Housing: House Do you presently have visiting nurse or other home services: Yes Alcohol intake: current Alcohol intake frequency: 3 or more drinks per day Alcohol type: beer Comment: 1:1 sitter Patient Tobacco Use Status: Current everyday Tobacco user Tobacco use type: Cigarette Cigarettes Per Day: 10 e-Cigarette/Vaping Use: Never Used Second Hand Smoke Exposure: No service: No Current occupational status: retired Current occupational exposures/hazards: No Cognitive needs: No Hearing needs: No Vision needs: No Review of Systems Const Denies chills, Denies daytime sleepiness, Denies fatigue, Denies fever(s), Denies frequent falls, Denies poor appetite, Denies snoring, Denies stops breathing during sleep, Denies weakness, Denies weight gain and Denies weight loss Eyes Denies loss of vision ENT Denies dizziness and Denies hearing loss Card Denies chest pain, Denies claudication, Denies leg edema, Denies lightheadedness, Denies palpitations, Denies dyspnea, Denies dyspnea on exertion and Denies orthopnea Resp Denies cough, Denies excessive phlegm production, Denies dyspnea, Denies dyspnea on exertion, Denies snoring and Denies wheezing GI Denies abdominal pain, Denies hematochezia, Denies change in bowel habits, Denies nausea and Denies vomiting Denies dysuria and Denies urinary frequency Musc Denies arthralgias, Denies muscle weakness and Denies numbness Skin/Breast Denies nail changes and Denies rash Neuro Denies Abnormal speech present, Denies dizziness, Denies frequent falls, Denies loss of vision, Denies memory loss, Denies numbness and Denies weakness Psych Denies depression and Denies memory loss Endo Denies fatigue and Denies palpitations Heron/Lymph Reports easy bruising and Reports other (anemia) Aller/Immun Denies wheezing Physical Exam Vital Signs: Last Vital Signs Pulse 78 12/26/24 13:51 BP 120/76 12/26/24 13:51 BMI result Body Mass Index 28.9 Const General: cooperative, comfortable, no acute distress, alert and awake Nutritional Appearance: overweight Orientation/consciousness: patient oriented x3 Limitations: no limitations HEENT Head: Yes normocephalic and Yes atraumatic Neck Neck: Yes trachea midline, Yes supple and Yes no JVD Resp Effort & Inspection: normal respiratory effort Auscultation: clear to auscultation bilaterally and diminished lung sounds Cardio Jugular venous distension: no JVD Rate: regular rate Rhythm: regular rhythm Heart sounds: S1 normal heart sound present, S2 normal heart sound present, no click, no gallops, no murmurs and no rubs Bruits: no carotid bruits GI Auscultation: normal bowel sounds Skin General skin exam: no rashes or lesions noted Neuro General: patient oriented x3 and no focal motor deficits Speech: No Abnormal speech present Extrem General: Yes no clubbing, cyanosis or edema Office Procedures EKG Details: EKG shows normal sinus rhythm with LVH with inferior Q-waves consistent with inferior infarct [id number], Complete Assessment & Plan Assessment & Plan (1) CAD (coronary artery disease): Code(s): I25.10 - Atherosclerotic heart disease of [place] coronary artery without angina pectoris Category: Medical Qualifiers: Associated angina: with stable angina Coronary Disease-Associated Artery/Lesion type: [place] artery [place] vs. transplanted heart: [place] heart Qualified Code(s): I25.118 - Atherosclerotic heart disease of [place] coronary artery with other forms of angina pectoris Plan: Coronary artery disease prior inferior infarct noted on myocardial perfusion imaging without significant ischemia. That has no doubt that patient has underlying coronary artery disease with prior infarcted myocardium. He was not aware of this finding. Overall his LV ejection fraction is preserved. Continues to have chest pain at rest which is atypical in nature. However he has likelihood to have multivessel disease based on his risk factors and therefore I would like a coronary artery anatomy evaluation to rule out any balanced ischemia. Suggest coronary CTA in the near future. Meanwhile advised him to start low-dose aspirin therapy. I think he should be on high-intensity statin therapy, atorvastatin 40/80 or rosuvastatin 20/40 with target goal LDL less than 60 mg/dL. Complete smoking cessation was advised. His blood pressure is currently well optimized. If he has coronary CTA does not show any significant three-vessel coronary disease and only RCA disease with suspected chronic total occlusion then GI workup should be pursued for his chest pain syndrome. Continue aggressive diabetes management through your office with goal hemoglobin A1c less than 7%. He would benefit from GLP 1 antagonist therapy. Continue aggressive blood pressure control which is currently well optimized. Will follow up in the clinic in 3 months time, sooner PRN. Thank you for allowing me to partake in his care Orders: Orders CT Cardiac Coronary Angio 1 Week I25.118 - Atherosclerotic heart disease of [place] coronary artery with other forms of angina pectoris Coding Level of Care Code New Pt Level 4 (02877) Complex EM visit Add On G2211 Diagnoses Coronary artery disease of [place] artery of [place] heart with stable angina pectoris I25.118 Associated angina: with stable angina Coronary Disease-Associated Artery/Lesion type: [place] artery [place] vs. transplanted heart: [place] heart CPT Codes EKG - CPT: 52031-[id number], Complete ([id number])
[2024-12-26 13:51] VITALS: BP 120/76; PULSE 78; BMI 28.9
--- OUTSIDE RECORDS SUMMARY | 2024-12-27 03:12 | XMS_ITS | Data Portability ---
Author Organization [facility] Address [address] [place] [address] Care Team Providers Care Mirror Specialist Name Role Phone [facility] Referring Provider Assessment Encounter [...] a four hour ED wait time. VSS. 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 Upon presentation with the automation controls engineer he was found to have an O2 [...] Assessment and Plan as documented by the Forge Utility Worker. I provided real-time medical direction via phone [...] flu (A+B) 2022 023 [email or web address] Main - [facility], [address] [place] [address], [phone] 17:54:47 rapid SARS CoV 2 Ag, QL IA, respiratory specimen 2022 023 [email or web address], [address] [place] [address], [phone] 3 17:54:47 Referral None recorded. Procedures None recorded. Surgeries None recorded. Imaging None recorded. Medication Orders furosemide 20 mg tablet 2022 023 [facility] #[id number], [address] [place], [address], 3 15:12:40 Patient TargetsNo targets recorded. Patient InstructionsNo instructions recorded. Reason for Referral None Reported. Results Created Date Observation Date Name Description Value Unit Range Abnormal Flag Note LastModifiedBy Organization Detail LastModifiedTime 02/25/1902/25/2022 rapid SARS CoV 2 Ag, QL IA, respi rator y speci men rapid SARS CoV 2 Ag, QL IA, respiratory specimen negati ve Not Available [facility] [address] [place] [address], [phone] 02/25/2022 13:55:18 02/25/19 23 02/25/2022 rapid flu (A+B) Flu negati ve Not Available [facility] [address] [place] [address], [phone] 02/25/2022 13:55:16 Result Notes None recorded. Medical [...] Details Last Updated DateTime 3 98.1 [degF] 709762. 16 g 16 /min 93 % 93 % 86 /min 86 /min 16 /min 98.1 [degF] 93 % 93 % 365713. 16 g Not Available [email or web address] 3 15:31:07 Date Recorded Systolic And Diastolic Systolic And Diastolic Provider Name and Address Organization Details Last Updated DateTime 04/23/2022 139/87 mm[Hg] 139/87 mm[Hg] Not Available [email or web address] 04/23/2022 15:31:07 Date Recorded Body weight Respiratory rate Oxygen saturation Oxygen saturation in Arterial blood by Pulse oximetry Body temperature Heart rate Body temperature Heart rate Body weight Respiratory rate Oxygen saturation Oxygen saturation in Arterial blood by Pulse oximetry Provider Name and Address Organization Details Last Updated DateTime 3 394677. 08 g 14 /min 96 % 96 % 97.5 [degF] 75 /min 97.5 [degF] 75 /min 936217. 08 g 14 /min 96 % 96 % Not Available [employer] 3 17:28:39 Date Recorded Systolic And Diastolic Systolic And Diastolic Provider Name and Address Organization Details Last Updated DateTime 06/25/2022 141/78 mm[Hg] 141/78 mm[Hg] Not Available [email or web address] 06/25/2022 17:28:39 Date Recorded Body temperature Heart [...] /min 155/77 mm[Hg] 155/77 mm[Hg] Not Available [email or web address] 2 14:34:47 Date Recorded Respiratory rate Heart [...] [id number] Nathaniel Mcconnell MD Main - [facility] [address] [place] [phone] 08/06/2021 17:15:40 10/15/2021 12:14:09 Altered mental status [id number] R41.82 [id number] Lisa Dickson MD Main - [email or web address] [address] [place] [phone] 11/08/2021 13:18:37 11/08/2021 15:39:12 5077 Kristy Mosley MD Main - [facility] [address] [place] [phone] 12/12/2021 18:28:35 12/13/2021 14:59:56 Congestive heart failure 63742418 I50.9 56y M with CHF and chronic [...] 7091 Sienna Alatorre MD Main - [facility] [address] [place] [phone] 02/25/2022 13:53:52 03/04/2022 15:28:58 Hypoxia 148106676 R09.02 Congestive heart failure 57418646 I50.9 8530 Nathaniel Mcconnell MD Main - [facility] [address] [place] [phone] 04/23/2022 15:08:35 04/25/2022 10:49:48 Swelling of bilateral lower limbs 978055150 M79.89 11344 Kristy Mosley MD Main - [facility] [address] [place] [phone] 06/25/2022 17:15:30 06/26/2022 10:04:11 Dizziness 923977652 R42 As noted, we were called to see this patient regarding concerns of dizziness. Evaluation in the field was performed by my automation controls engineer colleague, as noted above, I provided real-time [...] Holm Member ID Guarantor Name 03/29/2024 1 [facility] - DOS PRIOR TO 2022 - DUAL ELIGIBLE (MEDICARE REPLACEMENT/ADV ANTAGE - HMO) Romaine Longoria [id number] Romaine Longoria 03/29/2024 1 [facility] - DOS ON OR AFTER 2022 - DUAL ELIGIBLE - GROUP HOME OPTIONS AND ONE CARE (MEDICARE REPLACEMENT/ADV ANTAGE - HMO) Romaine Longoria [id number] Romaine Longoria Notes Date Note Type Note [...] .................... .................... .................... .................... .................... .................... . Forge Utility Worker Note: Sent to evaluate pt with poly [...] resolves with rest. Pt denies hx of PR/CHF. Pt states urinary incontinence mentioned in intake note is chronic since prostate CA surgery and denies dysuria. Performed 12 lead and uploaded images to [employer]. [place]ed [facility] who ordered POC CMP and then 20mg [...] .................... . Disposition: Fulfilled Lisa Dickson MD [address] [place] [address],[address], [place], [phone], [employer] [facility] [employer] 11/08/2021 15:39:10 12/12/2021 text/html HPI: Member discharged [place] [facility] [place]21 for CHF exacerbation, started on HCTZ-Lisinopril. member reports was put on 1500mL fluid restriction. Member hasnt been drinking fluids and reports feeling dehydrated, throat dry mouth, tired and sleepy. BP taken twice 96/64, 102/72. Member will need evaluation .................... .................... .................... .................... .................... .................... .................... . CRC Nursing Assessment: Comments: CRC RN DID NOT NEED FURTHER INFO [facility] HPI: recent admission to hospital for CHF [...] and on discharge. Kristy Mosley MD [address], [place], [phone], [employer] 12/12/2021 18:46:47 02/25/2022 text/html HPI: Romaine is [...] .................... .................... .................... .................... .................... .................... . Forge Utility Worker Note: Sent to evaluate pt with several [...] covid and rapid flu both negative. Consulted [facility] who agreed with this assessment that pt would benefit from further eval/imaging at ER. Placed 20g in L hand and activated EMS. Pt care transferred to [facility] and pt to be transported to [facility] ER. .................... .................... .................... .................... .................... .................... .................... . Disposition: Fulfilled Sienna Alatorre MD [address], [place], [phone], [facility] 10/28/2022 17:55:02 04/23/2022 text/html HPI: 56 y/o with reports of 1 week of increased LE swelling, erythema, warmth, abrasions, fatigue. R/o LE cellulitis. .................... .................... .................... .................... .................... .................... .................... . CRC Nursing Assessment: Comments: Reviewed - Ryder CABALLERO .................... .................... .................... .................... .................... .................... .................... . Forge Utility Worker Note From Jerome Walls: Dispatch[employer] to the [...] 241, POC labs obtained and sent to [facility]. pt denied recent falls / trauma , pt legs knees to angles swollen bi - lateral, right leg was red, neither was warm to touch or open wounds or weeping. (+/=) CSMS and pulses, [facility] contacted and ordered 40mg Lasix SIVP the pt was given a prescription to get him to his PCP appointment next week, supportive care and when to call 911 discussed. (- ) adverse on to medication administration .................... .................... .................... .................... .................... .................... .................... . Disposition: Fulfilled Nathaniel Mcconnell MD [address], [place], [phone], [employer] 07/24/2022 14:52:33 06/25/2022 text/html HPI: Romaine is a 56 y/o male, seen for VV today by SHUTDOWN PLANNER. Romaine reports earlier in the day he [...] no further information needed to process visit [facility] HPI: recurrent dizziness for past year. established w pcp. checked sugar only after eating. cbg 215. normal is 150-250 for him. no chest pain, shortness of breath. feeling better now. feels like one of his normal episdoes............ .................... .................... .................... .................... .................... .................... .......... Forge Utility Worker Note From Edis Colon: Pt complains of [...] . POC BGL 215mg/dI and pt afebrile. [facility] contacted who agreed that pts episode likely attributed to his diabetes and instructed pt to follow up with PCP Pt educated on S/SX that would indicate 911/ED visit and it was suggested that pt keep log of these episodes and what his BGL is during each. .................... .................... .................... .................... .................... .................... .................... . Disposition: Fulfilled Kristy Mosley MD [address], [place], [phone], CAROL ANN PELLETIER 06/25/2022 17:32:07
== END 2024-12-26 14:20 | disposition home or self-care (01) ==
LOC: HO.HCS 13:49
PROVIDERS: PCP Nurse Practitioner Family; Visit Provider Internal Medicine Cardiovascular Disease
DX: I25.118 Atherosclerotic heart disease of native coronary artery with other forms of angina pectoris (principal)
CPT/HCPCS: 93010; 99214; G2211

== ENCOUNTER → 2024-12-26 13:49 | Outpatient (BNVA) | payer MEDICARE, MEDICAID, SELFPAY | PROVIDERS: PCP Nurse Practitioner Family; Visit Provider Internal Medicine Cardiovascular Disease | DX: I25.118 Atherosclerotic heart disease of native coronary artery with other forms of angina pectoris (principal) | CPT/HCPCS: 93005; 99212 ==

== ENCOUNTER 2024-12-27 09:21 | Outpatient (AMB) | payer MEDICARE, MEDICAID, SELFPAY ==
[2024-12-27 09:28] VITALS: BMI 28.9
--- NOTE | 2024-12-27 09:28 | MHC.OFFVIS ---
Vital Signs 12/27/24 09:28 Height 5 ft 11 in Weight 207 lb BMI 28.9 Intake Visit Reasons: follow up [facility] 11/23/24 Intake Note: follow up 11/23/24, has Left plantar wound, pt states is worse. Not seen by woundcare, does own dressing. Special Services Coordinator Required: No Accompanied by: Self / Same As Patient Allergies No Known Allergies Allergy (Verified 12/27/24 09:31) HPI HPI follow up [facility] 11/23/24: Details: The patient is a 59 year old male presenting for evaluation of a foot wound. He reports managing the wound himself by washing it with soap and water and applying a patch, but notes it has developed a malodorous discharge and has never been this bad before. The patient has seen a oven press tender, Dr. Esthela Covington, but has not been happy with his is previous podiatry care. He is now for routine venous insufficiency follow-up. [facility] Medical History History of osteomyelitis Spinal stenosis Hydrocele Hx of gout Umbilical hernia Diverticular disease History of MRSA infection of lungs History of alcohol withdrawal delirium Anxiety with depression Critical illness myopathy Nasal septal defect ETOH abuse Throat cancer Surgical History History of surgery on lower extremity H/O excision of mass Family History Father No problems noted. Mother No problems noted. Social History Household Members: None Housing: House Do you presently have visiting nurse or other home services: Yes Alcohol intake: current Alcohol intake frequency: 3 or more drinks per day Alcohol type: beer Comment: 1:1 sitter Patient Tobacco Use Status: Current everyday Tobacco user Tobacco use type: Cigarette Cigarettes Per Day: 10 e-Cigarette/Vaping Use: Never Used Second Hand Smoke Exposure: No service: No Current occupational status: retired Current occupational exposures/hazards: No Cognitive needs: No Hearing needs: No Vision needs: No Review of Systems Const All systems reviewed & are unremarkable except as noted in HPI and below Reports no additional complaints ENT Reports Normal hearing present Card Denies chest pain, Denies chest pain at rest, Denies chest pain with activity and Denies pedal edema Resp Denies cough GI Denies abdominal pain Musc Denies abnormal gait, Denies muscle cramps and Denies radiating pain into limb Skin/Breast Denies skin ulcer and Denies wounds Neuro Reports Normal hearing present and Denies abnormal gait Psych Reports no additional complaints Physical Exam Vital Signs: BMI result Body Mass Index 28.9 Const General: cooperative, healthy appearing and comfortable Orientation/consciousness: oriented to person, oriented to place and oriented to time HEENT Head: Yes normal to inspection Neck Neck: Yes normal visual inspection Carotids: no bruits Chest Chest palpation & inspection: normal inspection of the chest Resp Effort & Inspection: normal respiratory effort and able to speak in complete sentences Auscultation: clear to auscultation bilaterally, no crackles, no rales, no rhonchi and no wheezes Cardio Other: Palpable pulses bilaterally dorsalis pedis +2 Rate: regular rate Rhythm: regular rhythm Heart sounds: S1 normal heart sound present and S2 normal heart sound present Bruits: no carotid bruits Peripheral pulses: Peripheral pulses 2+ throughout GI Inspection: Yes normal to inspection Skin Other: Left plantar ulceration of proximally 2 cm in diameter with reasonably clean granulation base. Wounds: no wounds Hair: normal Neuro General: oriented to person, oriented to place and oriented to time Cranial nerves: Yes CN's II-XII intact bilaterally and Yes Normal hearing present Cognition (Neuro): normal cognition Motor exam (neuro): 5/5 motor strength present throughout Extrem Other: venous exam: No significant superficial varicosities or spider telangiectasias, minimal edema General: No clubbing, No cyanosis and No edema Psych Appearance: grossly normal Mental Status: mental status grossly normal Speech and movement: Normal speech and movement present Results Reviewed Results Reviewed: Brief summary of venous insufficiency testing is as follows: right great saphenous vein: negative right small saphenous vein: negative right accessory vein: none present left great saphenous vein: negative left small saphenous vein: negative left accessory vein: none present Please note there is no evidence of any venous aneurysms or significant tortuosity Assessment & Plan Assessment & Plan (1) Varicose veins of left lower extremity with inflammation: Code(s): I83.12 - Varicose veins of left lower extremity with inflammation Category: Medical Plan: Negative . 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 mellitus due to underlying condition: Code(s): E08.621 - Diabetes mellitus due to underlying condition with foot ulcer; L97.529 - Non-pressure chronic ulcer of other part of left foot with unspecified severity Category: Medical Qualifiers: Diabetic foot ulcer location: unspecified part of foot Non-pressure ulcer stage: unspecified non-pressure ulcer stage Qualified Code(s): E08.621 - Diabetes mellitus due to underlying condition with foot ulcer; L97.529 - Non-pressure chronic ulcer of other part of left foot with unspecified severity Plan: I informed the patient that from a vascular perspective, everything looked good, noting his veins were normal and he had a good palpable pulse in the foot. I measured the ulcer on his left plantar foot, which is 2 cm in diameter. We discussed his previous oven press tender and his preference to keep all his care in one system. I recommended a referral to our podiatry team, explaining their office is in [facility], and he agreed. I instructed my staff to wrap his foot following the exam. He will follow up with us on an as-needed basis. Thank you for allowing us to assist in his care. If there are any questions or concerns please do not hesitate to contact us. Plan Patient was informed and verbally consented to the use of an ambient scribe for clinic note documentation during this visit. Orders: Referrals Podiatry Referral E08.621 - Diabetes mellitus due to underlying condition with foot ulcer, L97.529 - Non-pressure chronic ulcer of other part of left foot with unspecified severity Patient Instructions: - Your circulation is good, and your veins look normal. - You have a 2-centimeter wound on the bottom of your left foot. - We are setting you up with an appointment with our foot doctors (podiatry) to help care for the wound. - Our staff will apply a wrap to your foot today. Coding Level of Care Code Est Pt Level 4 (39998) Diagnoses Varicose veins of left lower extremity with inflammation I83.12 Diabetic ulcer of left foot associated with diabetes mellitus due to underlying condition, unspecified part of foot, unspecified ulcer stage E08.621; L97.529 Diabetic foot ulcer location: unspecified part of foot Non-pressure ulcer stage: unspecified non-pressure ulcer stage
== END 2024-12-27 10:07 | disposition home or self-care (01) ==
LOC: HO.HVS 09:22
PROVIDERS: PCP Nurse Practitioner Family; Visit Provider Surgery Vascular Surgery
DX: I83.12 Varicose veins of left lower extremity with inflammation (principal); E08.621 Diabetes mellitus due to underlying condition with foot ulcer; L97.529 Non-pressure chronic ulcer of other part of left foot with unspecified severity
CPT/HCPCS: 99214

== ENCOUNTER → 2024-12-27 09:21 | Outpatient (BNVA) | payer MEDICARE, MEDICAID, SELFPAY | PROVIDERS: PCP Nurse Practitioner Family; Visit Provider Surgery Vascular Surgery | DX: I83.12 Varicose veins of left lower extremity with inflammation (principal); E08.621 Diabetes mellitus due to underlying condition with foot ulcer; L97.529 Non-pressure chronic ulcer of other part of left foot with unspecified severity | CPT/HCPCS: 99212 ==

== ENCOUNTER 2024-12-29 09:26 | Outpatient (AMB) | payer MEDICARE, MEDICAID, SELFPAY ==
--- NOTE | 2024-12-29 09:28 | MHC.OFFVIS ---
Vital Signs 12/29/24 09:43 Height 5 ft 11 in Weight 209 lb 14.081 oz BMI 29.3 BP 102/68 Blood Pressure Location Rt brachial Position Sitting Pulse 86 Pulse Source Pulse Oximeter Pulse Oximetry (%) 93 Oxygen Delivery Method Room Air Intake Visit Reasons: Type 1.2 DM Intake Note: Patient present today for Diabetes Mellitus Last Diabetic eye exam: Patient has last exam in August 2024 Last Podiatry Visit: Unsure when last visit with Podiatry was. Patient states he was told by a provider that he needs to be seen by Wound Care, bottom left foot open lesion with foul odor, reports discharge. Has not been set up with Wound Care. Requesting referral. Random Glucose: 156 mg/dl HgA1C: 7.9% 11/25/2024 Rfid Developer Required: No Accompanied by: Self / Same As Patient Allergies No Known Allergies Allergy (Verified 12/29/24 09:33) Medication List - Last Reconciled 12/29/24 by Darin Holly MD acamprosate 666 mg (2 x 333 mg) PO TID alcohol swabs (Alcohol Prep Pads) topically; use 1 prep pad to clean skin prior to injections up to 5 x daily aspirin (Ecotrin Low Strength) 81 mg PO DAILY atorvastatin (Lipitor) 10 mg PO BEDTIME bicalutamide 50 mg PO DAILY 90 days blood sugar diagnostic (Accu-Chek Guide test strips) use once daily As directed to monitor blood sugars blood-glucose meter (Accu-Chek Guide Glucose Meter) Use once daily As directed to monitor blood sugars blood-glucose sensor ([employer] G7 Sensor device) Use daily As directed dulaglutide (Trulicity) 0.75 mg (0.5 mL) subcut QWEEK empagliflozin (Jardiance) 10 mg PO DAILY fluticasone propion-salmeterol 250-50 mcg/dose 1 ea inhalation BID fluticasone propionate 50 mcg/actuation 1 spray intranasal DAILY folic acid 1 mg PO DAILY insulin glargine (Lantus Solostar U-100 Insulin) 10 units (0.1 mL) subcut BEDTIME lancets (Accu-Chek Softclix Lancets) use once daily As directed to monitor blood sugars levothyroxine 200 mcg PO DAILY@0600 losartan 50 mg PO DAILY metformin 500 mg PO BID metoprolol succinate ER 50 mg PO DAILY mometasone 0.1% 1 appl topical DAILY montelukast 10 mg PO DAILY omeprazole 20 mg PO DAILY@0630 pen needle, diabetic Use daily As directed pregabalin 75 mg PO BID sertraline 100 mg PO DAILY tamsulosin (Flomax) 0.4 mg PO BEDTIME zinc oxide 20% 1 ea topical DAILY HPI Comments Details: HPI Type 2 diabetes mellitus without complications: The patient last saw JULIET Sheppard on 09/16/24 . He has positive anti-emely 65 antibodies. Has a high C-peptide level suggesting YANETH Details: Patient is a 58-year-old male with a significant past medical history of hypotension, htn, anxiety, depression, alcohol abuse (currently sober), asthma, CKD with recent DARRELL, GERD, hypothyroidism, HLD, CAD, possible pulmonary hypertension and diabetes presenting today for a follow up regarding his diabetes. He is somewhat of a poor historian in his here today by himself. His sister has been helping him a lot with medications/life. He states she has him on a better diet. He has been sober since hospitalization. Endo: States that he was diagnosed with diabetes in 2022. He is currently being managed with Lantus 10 units at night, metformin 500 mg bid, jardiance 10 mg, Trulicity 0.75 mg -metformin causes some upset stomach/nausea CGM- he forgot to bring the reader and has not been using the sensors because 2 fell off. He has not noted any low blood sugars. hypoglycemia- He denies any recent low blood sugars He was following with [facility] endocrinology at initial dx of dm but has not been seen in over 1 year per patient. I do not have any records of this.. Vasc: He had a left diabetic foot ulcer now. He states he has been struggling with this ulcer for about a year and it got better after wound care/following with vascular surgery in February. He states that it is no longer leaking it is less painful. He states that he has had vna services helping him manage the wound. He does think that it is getting a bit better. He has follow up next week with podiatry in [place] and he is booked with vasc on 10/13. CKD: following with nephrology. Last optho yrs ago . Needs to see [facility] Medical History History of osteomyelitis Spinal stenosis Hydrocele Hx of gout Umbilical hernia Diverticular disease History of MRSA infection of lungs History of alcohol withdrawal delirium Anxiety with depression Critical illness myopathy Nasal septal defect ETOH abuse Throat cancer Surgical History History of surgery on lower extremity H/O excision of mass Family History Father No problems noted. Mother No problems noted. Social History Household Members: None Housing: House Do you presently have visiting nurse or other home services: Yes Alcohol intake: current Alcohol intake frequency: 3 or more drinks per day Alcohol type: beer Comment: 1:1 sitter Patient Tobacco Use Status: Current everyday Tobacco user Tobacco use type: Cigarette Cigarettes Per Day: 10 e-Cigarette/Vaping Use: Never Used Second Hand Smoke Exposure: No service: No Current occupational status: retired Current occupational exposures/hazards: No Cognitive needs: No Hearing needs: No Vision needs: No Physical Exam Vital Signs: Last Vital Signs Pulse 86 12/29/24 09:43 BP 102/68 12/29/24 09:43 Pulse Ox 93 12/29/24 09:43 Oxygen Delivery Method Room Air 12/29/24 09:43 BMI result Body Mass Index 29.3 Absence of Cushingoid features. Absence of acromegalic features. Neck exam reveals nl size thyroid about 15 gms. No thyroid nodules palpable. No carotid bruits present. Lungs CTA. Heart S1 S2, Reg R/R. No M/R/ G. Skin exam reveals absence of vitiligo or acanthosis nigricans. Abdominal exam reveals Soft NT/ND with NA BS. No organomegaly present. Neck Other: . Extrem Other: Visual exam of foot performed. No ulcerations or open lesions. No onchomycosis, no callouses.Pulses 2 + distally Sensationabsent to monofilament exam. Vibratory sensation sensed is decreased t with 128 Hz tuning fork. There was a rounded ulcer on the left foot penetrating into the soft tissue and oozing exudate Results Reviewed Results Reviewed: Laboratory Last Values Glucose (Clinic) 156 mg/dL (60-115) H 12/29/24 09:45 Assessment & Plan Assessment & Plan (1) Insulin dependent type 2 diabetes mellitus, controlled: Code(s): E11.9 - Type 2 diabetes mellitus without complications; Z79.4 - silk screen processor (current) use of insulin Category: Medical Plan: This is a 59-year-old white male with a history of YANETH currently being treated with basal-bolus insulin, Jardiance, metformin, Trulicity with known microvascular and macrovascular complication namely CKD, foot ulcer and CAD Plan is to have the patient continue to use the sensor and bring the sensor in with him during follow-up visits. Could not make any changes to the regimen because of lack of data today. Would stopped the Jardiance in light of the risk of DKA. Went over the correlation of poor glycemic control to development of progression of complications. Patient should follow up with Nephrology. Patient will be sent to the emergency room today for management of the left foot wound. An ambulance was called the patient is agreeing to go Orders: Referrals Ophthalmology Referral E11.9 - Type 2 diabetes mellitus without complications, Z79.4 - intermediate (current) use of insulin Diabetes Education Referral E11.9 - Type 2 diabetes mellitus without complications, Z79.4 - silk screen processor (current) use of insulin Nutrition/Dietitian Referral E11.9 - Type 2 diabetes mellitus without complications, Z79.4 - intermediate (current) use of insulin Medications: Discontinued empagliflozin (Jardiance) Discontinued Reason: Doctor's Order 10 mg PO DAILY 90 tabs 3RF Coding Level of Care Code Est Pt Level 4 (69930) Diagnoses Insulin dependent type 2 diabetes mellitus, controlled E11.9; Z79.4
[2024-12-29 09:43] VITALS: BP 102/68; PULSE 86; O2SAT 93; BMI 29.3
[2024-12-29 09:49] LABS: Glucose, Whole Blood 156 mg/dL (60-115)
--- OUTSIDE RECORDS SUMMARY | 2024-12-29 13:00 | XMS_ITS | Encounter Summary ---
Author Organization [facility] Address [address] [place] [address] Care Team Providers Care Cereal Supervisor Name Role Phone Rita Fierro MD Primary Care Provide r Encounter Details Date Type Department Care Team (Late st Contact Info) Description 06/08/[address] [facility] Lab [address] [facility] [place] [address] Krishan Sotelo MD [address] [place] [address] [address] [place], [phone] Type 2 diabetes mellitus without complications [...] diabetes mellitus without complications (CMS/HCC V24, CMS/FORMERLY [facility] V28) documented in this encounter Results * (ABNORMAL) Hemoglobin A1c (06/08/2024 7:34 AM EDT) Hemoglobin A1C 7.1(H) <6.5 % LAB CHEMISTRY METHOD 06/08/2024 12:47 PM EDT [facility] ([facility]) [facility] Mean Bld Glu Estim. 157 mg/dL LAB CHEMISTRY METHOD 06/08/2024 12:47 PM EDT [facility] Blood Venous blood specimen / Unknown Venipuncture / Unknown 06/08/2024 7:34 AM EDT 06/08/2024 10:04 AM EDT us Krishan Sotelo MD LAB BLOOD ORDERABLES Final Resul t [facility] [address] [place] [address], documented in this encounter Visit Diagnoses Diagnosis Type 2 diabetes mellitus without complications (CMS/HCC V24, CMS/HCC V28) documented in this encounter Care Teams Cereal Supervisor Relationship Specialty Start Date End Date Rita Fierro MD [address] [place] [address] [place] PCP - General Internal Medicine 08/02/16 documented as of this encounter
--- OUTSIDE RECORDS SUMMARY | 2024-12-29 13:00 | XMS_ITS | Encounter Summary ---
Author Organization [facility] Address [address] [place] [address] Care Team Providers Care Auth Specialist Name Role Phone Rita Fierro MD Primary Care Provide r Encounter Details Date Type Department Care Team Description 02/21/2022 Social Work [facility] [address] [place] [address] Ramon Hoskins, [facility] Social History Tobacco Use Types Packs/Day Years [...] on filedocumented in this encounter Care Teams Auth Specialist Relationship Specialty Start Date End Date Rita Fierro MD [address] [place] [id number] PCP - General Internal Medicine 08/02/16 documented as of this encounter
--- OUTSIDE RECORDS SUMMARY | 2024-12-29 13:00 | XMS_ITS | Encounter Summary ---
Author Organization [facility] Address [address] [place] [id number] Care Team Providers Care Porcelain Finish Sprayer Name Role Phone Rita Fierro MD Primary Care Provide r Encounter Details Date Type Department Care Team (Late st Contact Info) Description 06/06/2024 Lab Requisition [facility] - Main Lab [address] [facility] [place] [address] Krishan Sotelo MD [address] [place] [address] 204 [facility] [phone] Essential (primary) hypertension; Type 2 diabetes [...] (CMS/HCC V24, [facility] V28) Metabolic encephalopathy Alcohol use, unspecified with withdrawal delirium ([facility] V24, [facility] V28) COMPREHENSIVE METABOLIC PANEL Routine 06/06/2024 7:22 AM EDT Essential (primary) hypertension Type 2 diabetes mellitus without complications ([facility] V24, [facility] V28) Metabolic encephalopathy Alcohol use, unspecified with withdrawal delirium ([facility] V24, [facility] V28) documented in this encounter Results * (ABNORMAL) CBC auto differential (06/06/2024 7:22 AM EDT) [facility] WBC 9.4 4.8 - 10.8 K/mcL LAB HEMETOLOGY METHOD 06/06/2024 10:49 AM [facility] LAB RBC 2.80(L) 4.50 - 5.50 M/mcL LAB HEMETOLOGY METHOD 06/06/2024 10:49 AM [facility] LAB Hemoglobin 9.2(L) 13.5 - 17.5 g/dL LAB HEMETOLOGY METHOD 06/06/2024 10:49 AM [facility] LAB Hematocrit 28.4(L) 42.0 - 54.0 % LAB HEMETOLOGY METHOD 06/06/2024 10:49 AM [facility] LAB MCV 102.9(H) 79.0 - 98.0 FL LAB HEMETOLOGY METHOD 06/06/2024 10:49 AM [facility] LAB MCH 33.3(H) 27.0 - 32.0 pcg LAB HEMETOLOGY METHOD 06/06/2024 10:49 AM [facility] LAB MCHC 32.4 32.0 - 37.0 g/dL LAB HEMETOLOGY METHOD 06/06/2024 10:49 AM [facility] LAB RDW 15.5(H) 11.0 - 15.0 % LAB HEMETOLOGY METHOD 06/06/2024 10:49 AM [facility] LAB Platelets 505(H) 130 - 400 K/mcL LAB HEMETOLOGY METHOD 06/06/2024 10:49 AM [facility] LAB MPV 10.2 7.0 - 11.0 FL LAB HEMETOLOGY METHOD 06/06/2024 10:49 AM [facility] LAB NRBC 0.0 <1.0 % LAB HEMETOLOGY METHOD 06/06/2024 10:49 AM [facility] LAB NRBC Absolute 0.00 <0.10 K/mcL LAB HEMETOLOGY METHOD 06/06/2024 10:49 AM [facility] LAB Neutrophils Relative 71.0 % LAB HEMETOLOGY METHOD 06/06/2024 10:49 AM [facility] Lymphocytes Relative 13.6 % LAB HEMETOLOGY METHOD 06/06/2024 10:49 AM [facility] Monocytes Relative 7.0 % LAB HEMETOLOGY METHOD 06/06/2024 10:49 AM [facility] Eosinophils Relative 6.1 % LAB HEMETOLOGY METHOD 06/06/2024 10:49 AM [facility] Basophils Relative 1.1 % LAB HEMETOLOGY METHOD 06/06/2024 10:49 AM [facility] LAB Immature Granulocytes Relative 1.2 % LAB HEMETOLOGY METHOD 06/06/2024 10:49 AM [facility] LAB Neutrophils Absolute 6.66 1.50 - 7.00 K/mcL LAB HEMETOLOGY METHOD 06/06/2024 10:49 AM [facility] LAB Lymphocytes Absolute 1.28 1.00 - 5.00 K/mcL LAB HEMETOLOGY METHOD 06/06/2024 10:49 AM [facility] LAB Monocytes Absolute 0.66 0.20 - 1.00 K/mcL LAB HEMETOLOGY METHOD 06/06/2024 10:49 AM EDT [facility] Eosinophils Absolute 0.57(H) 0.00 - 0.50 K/mcL LAB HEMETOLOGY METHOD 06/06/2024 10:49 AM T [facility] Basophils Absolute 0.10 0.00 - 0.20 K/mcL LAB HEMETOLOGY METHOD 06/06/2024 10:49 AM EDT [facility] Immature Granulocytes Absolute 0.11(H) 0.00 - 0.03 K/mcL LAB HEMETOLOGY METHOD 06/06/2024 10:49 AM T [facility] Blood Venous blood specimen / Unknown Venipuncture / Unknown 06/06/2024 7:22 AM EDT 06/06/2024 9:08 AM EDT us Krishan Sotelo MD LAB BLOOD ORDERABLES Final Resul t [facility] [address] [place] [address], [place] [phone] * (ABNORMAL) Comprehensive metabolic panel (06/06/2024 7:22 AM EDT) Sodium 134 133 - 145 mmol/L LAB CHEMISTRY METHOD 06/06/2024 12:50 PM [facility] Potassium 4.0 3.5 - 5.5 mmol/L LAB CHEMISTRY METHOD 06/06/2024 12:50 PM [facility] Chloride 100 96 - 110 mmol/L LAB CHEMISTRY METHOD 06/06/2024 12:50 PM [facility] CO2 24 21 - 32 mmol/L LAB CHEMISTRY METHOD 06/06/2024 12:50 PM [facility] Anion Gap 10 3 - 11 LAB CHEMISTRY METHOD 06/06/2024 12:50 PM [facility] Glucose 146(H) 70 - 100 mg/dL LAB CHEMISTRY METHOD 06/06/2024 12:50 PM [facility] BUN 20 5 - 25 mg/dL LAB CHEMISTRY METHOD 06/06/2024 12:50 PM [facility] Creatinine 1.50(H) 0.70 - 1.30 mg/dL LAB CHEMISTRY METHOD 06/06/2024 12:50 PM [facility] LAB eGFR 53(L) >=60 mL/min/1. 73m2 LAB CHEMISTRY METHOD 06/06/2024 12:50 PM [facility] Comment:Calculation based on the Chronic Kidney Disease Epidemiology Collaboration (CKD-EPI) equation refit without adjustment for race. BUN/Creatinine Ratio 13.3 LAB CHEMISTRY METHOD 06/06/2024 12:50 PM [facility] Calcium 9.4 8.5 - 10.5 mg/dL LAB CHEMISTRY METHOD 06/06/2024 12:50 PM [facility] AST (SGOT) 16 10 - 42 unit/L LAB CHEMISTRY METHOD 06/06/2024 12:50 PM [facility] ALT (SGPT) 15 10 - 60 unit/L LAB CHEMISTRY METHOD 06/06/2024 12:50 PM [facility] Alkaline Phosphatase 83 42 - 121 unit/L LAB CHEMISTRY METHOD 06/06/2024 12:50 PM [facility] Total Protein 7.1 6.0 - 8.0 g/dL LAB CHEMISTRY METHOD 06/06/2024 12:50 PM [facility] Albumin 3.3 3.2 - 5.0 g/dL LAB CHEMISTRY METHOD 06/06/2024 12:50 PM [facility] Total Bilirubin 0.4 0.0 - 1.4 mg/dL LAB CHEMISTRY METHOD 06/06/2024 12:50 PM [facility] Blood Venous blood specimen / Unknown Venipuncture / Unknown 06/06/2024 7:22 AM EDT 06/06/2024 9:08 AM EDT us Krishan Sotelo MD LAB BLOOD ORDERABLES Final Resul t [facility] ([facility]) [facility] [address] [place] [address], [place] [phone] documented in this encounter Visit Diagnoses Diagnosis Essential (primary) hypertension Unspecified essential hypertension Type 2 diabetes mellitus without complications ([facility] V24, [facility] V28) Metabolic encephalopathy Alcohol use, unspecified with withdrawal delirium ([facility] V24, [facility] V28) documented in this encounter Care Teams Porcelain Finish Sprayer Relationship Specialty Start Date End Date Rita Fierro MD [address] [place] [address] PCP - General Internal Medicine 08/02/16 documented as of this encounter
--- OUTSIDE RECORDS SUMMARY | 2024-12-29 13:00 | XMS_ITS | Clinical Summary ---
Author Organization [facility] Address [address] [place] [address] Care Team Providers Care Manager Of Radiology Name Role Phone Rita Fierro MD Primary [...] age to complete this topic Care Teams Manager Of Radiology Relationship Specialty Start Date End Date Rita Fierro MD [address] [place] [address] [place] [phone] PCP - General Internal Medicine 08/02/16
--- OUTSIDE RECORDS SUMMARY | 2024-12-29 13:01 | XMS_ITS | Clinical Summary ---
Author Organization [facility] Facility Address [address] [address] Care Team Providers Care Indigo Vat Tender Cloth Name Role Phone Rita Fierro MD Primary [...] patient's age to complete this topic Insurance [facility] [place] [id number] Care Teams Indigo Vat Tender Cloth Relationship Specialty Start Date End Date Rita Fierro MD [facility] [address] [place] [address] [address] [place], [place] PCP - General 02/20/20
--- OUTSIDE RECORDS SUMMARY | 2024-12-29 13:01 | XMS_ITS | Clinical Summary ---
Author Organization [employer] Address [address] [place] [address] Care Team Providers Care Complaint Supervisor Name Role Phone Unavailable Primary Care Provider [...] Tobacco Screening 1976 Hepatitis C Screening 1982 RSV Patients and Patients Aged 60 years or older (1 - Risk 50-74 years 1-dose series) 2014 Zoster Vaccines (1 of 2) 2014 Pneumococcal [...] patient's age to [place] this [place] [id number] [facility] MEDICARE ADVANTAGE
--- OUTSIDE RECORDS SUMMARY | 2024-12-29 13:01 | XMS_ITS | Clinical Summary ---
Author Organization [address] [facility] Address [address] [place] [address] Phone Care Team Providers Care Director Of Nurses Registry Name Role Phone Rita Fierro MD Primary [...] Annual Urine Albumin-Creatinine Ratio (uACR) 04/19/2024 10/29/2022 COVID-19 Vaccine ( season) 2024 12/17/2023, 12/04/2020, 05/31/2020, Additional history exists Influenza Vaccine (#1) 2024 , 11/30/2020, 12/15/2018, Additional history exists Diabetes: Blood Sugar Control Test (HGBA1C) 12/08/2024 06/08/2024 Diabetes: Annual GFR (Glomerular Filtration Rate) 06/06/2025 06/06/2024 Hypertension/CHF/CAD Annual BMP Blood Test 06/06/2025 06/06/2024 HIB Vaccines Aged Out No longer eligi [...] EDT Type 2 diabetes mellitus without complications ([facility] V24, [facility] V28) COMPREHENSIVE METABOLIC PANEL Routine 06/06/2024 7:22 AM EDT Essential (primary) hypertension Type 2 diabetes mellitus without complications ([facility] V24, [facility] V28) Metabolic encephalopathy Alcohol use, unspecified with withdrawal delirium ([facility] V24, [facility] V28) from Last 3 Months or Most Recently Relevant to Health Maintenance Results * (ABNORMAL) Hemoglobin A1c (06/08/2024 7:34 AM EDT) Pathologist [facility] Hemoglobin A1C 7.1(H) <6.5 % LAB CHEMISTRY METHOD 06/08/2024 12:47 PM EDT [facility] Mean Bld Glu Estim. 157 mg/dL LAB CHEMISTRY METHOD 06/08/2024 12:47 PM EDT [facility] Blood Venous blood specimen / Unknown Venipuncture / Unknown 06/08/2024 7:34 AM EDT 06/08/2024 10:04 AM EDT us Krishan Sotelo MD LAB BLOOD ORDERABLES Final Resul t [facility] [address] [place] [address], * (ABNORMAL) Comprehensive metabolic panel (06/06/2024 7:22 AM EDT) [facility] Sodium 134 133 - 145 mmol/L LAB CHEMISTRY METHOD 06/06/2024 12:50 PM EDT [facility] Potassium 4.0 3.5 - 5.5 mmol/L LAB CHEMISTRY METHOD 06/06/2024 12:50 PM EDT [facility] Chloride 100 96 - 110 mmol/L LAB CHEMISTRY METHOD 06/06/2024 12:50 PM [facility] CO2 24 21 - 32 mmol/L LAB CHEMISTRY METHOD 06/06/2024 12:50 PM [facility] Anion Gap 10 3 - 11 LAB CHEMISTRY METHOD 06/06/2024 12:50 PM [facility] Glucose 146(H) 70 - 100 mg/dL LAB CHEMISTRY METHOD 06/06/2024 12:50 PM [facility] BUN 20 5 - 25 mg/dL LAB CHEMISTRY METHOD 06/06/2024 12:50 PM [facility] Creatinine 1.50(H) 0.70 - 1.30 mg/dL LAB CHEMISTRY METHOD 06/06/2024 12:50 PM [facility] eGFR 53(L) >=60 mL/min/1. 73m2 LAB CHEMISTRY METHOD 06/06/2024 12:50 PM [facility] Comment:Calculation based on the Chronic Kidney Disease Epidemiology Collaboration (CKD-EPI) equation refit without adjustment for race. BUN/Creatinine Ratio 13.3 LAB CHEMISTRY METHOD 06/06/2024 12:50 PM [facility] Calcium 9.4 8.5 - 10.5 mg/dL LAB CHEMISTRY METHOD 06/06/2024 12:50 PM [facility] AST (SGOT) 16 10 - 42 unit/L LAB CHEMISTRY METHOD 06/06/2024 12:50 PM [facility] ALT (SGPT) 15 10 - 60 unit/L LAB CHEMISTRY METHOD 06/06/2024 12:50 PM [facility] Alkaline Phosphatase 83 42 - 121 unit/L LAB CHEMISTRY METHOD 06/06/2024 12:50 PM [facility] Total Protein 7.1 6.0 - 8.0 g/dL LAB CHEMISTRY METHOD 06/06/2024 12:50 PM [facility] Albumin 3.3 3.2 - 5.0 g/dL LAB CHEMISTRY METHOD 06/06/2024 12:50 PM EDT [facility] Total Bilirubin 0.4 0.0 - 1.4 mg/dL LAB CHEMISTRY METHOD 06/06/2024 12:50 PM EDT [facility] Blood Venous blood specimen / Unknown Venipuncture / Unknown 06/06/2024 7:22 AM EDT 06/06/2024 9:08 AM EDT us Krishan Sotelo MD LAB BLOOD ORDERABLES Final Resul t [facility] ([facility]) [facility] [address] [place] [address], from Last 3 Months or Most Recently Relevant to Health Maintenance Insurance [employer] MEDICARE MEDICAID - [place] Advance Directives Documents on File Type Date Recorded Patient Mall Manager Expl anation Health Care Decision (hx) 09/27/2018 [...] (hx) 09/27/2018 AD GARCIA DIRECTIVE Care Teams Director Of Nurses Registry Relationship Specialty Start Date End Date Rita Fierro MD [address] [place] [address] PCP - General Internal Medicine 08/02/16
--- OUTSIDE RECORDS SUMMARY | 2024-12-29 13:01 | XMS_ITS | Data Portability ---
Author Organization [facility] [place] [facility] Address [address] [place] [address] Care Team Providers Care Machine Captain Name Role Phone [facility] Referring Provider Assessment Encounter [...] a four hour ED wait time. VSS. Shipping Clerk Crating on site reports that he has tense [...] come and go. Upon presentation with the guide escort he was found to have an O2 [...] Assessment and Plan as documented by the Shipping Clerk Crating. I provided real-time medical direction via phone [...] flu (A+B) 2022 023 [email or web address] Main - [facility], [address] [place] [address], [phone] 17:54:47 rapid SARS CoV 2 Ag, QL IA, respiratory specimen 2022 023 [email or web address] [facility] [address] [place] [address], [phone] 3 17:54:47 Referral None recorded. Procedures None recorded. Surgeries None recorded. Imaging None recorded. Medication Orders furosemide 20 mg tablet 2022 023 [id number], [address] [place], [phone], 3 15:12:40 Patient TargetsNo targets recorded. Patient InstructionsNo instructions recorded. Reason for Referral None Reported. Results Created Date Observation Date Name Description Value Unit Range Abnormal Flag Note LastModifiedBy Organization Detail LastModifiedTime 02/25/1902/25/2022 rapid SARS CoV 2 Ag, QL IA, respi rator y speci men rapid SARS CoV 2 Ag, QL IA, respiratory specimen negati ve Not Available [facility] [address] [place] [address], [phone] 02/25/2022 13:55:18 02/25/19 23 02/25/2022 rapid flu (A+B) Flu negati ve Not Available [facility] [address] [place] [address], [phone] 02/25/2022 13:55:16 Result Notes None recorded. Medical [...] rate Body temperature Heart rate Oxygen saturation Systolic And Diastolic Provider Name and Address Organization Details Last Updated DateTime 3 20 /min 98.2 [degF] 84 /min 87 % 95/61 mm[Hg] Not Available [employer] - production 3 13:53:54 Date Recorded Body temperature Body weight Respiratory rate Oxygen saturation Heart rate Heart rate Respiratory rate Body temperature Oxygen saturation Body weight Systolic And Diastolic Systolic And Diastolic Provider Name and Address Organization Details Last Updated DateTime 3 98.1 [degF] 094836. 16 g 16 /min 93 % 86 /min 86 /min 16 /min 98.1 [degF] 93 % 723867. 16 g 139/87 mm[Hg] 139/87 mm[Hg] Not Available [employer] - production 3 15:31:07 Date Recorded Body weight Respiratory rate Oxygen saturation Body temperature Heart rate Body temperature Heart rate Body weight Respiratory rate Oxygen saturation Systolic And Diastolic Systolic And Diastolic Provider Name and Address Organization Details Last Updated DateTime 3 020983. 08 g 14 /min 96 % 97.5 [degF] 75 /min 97.5 [degF] 75 /min 743835. 08 g 14 /min 96 % 141/78 mm[Hg] 141/78 mm[Hg] Not Available [employer] - production 3 17:28:39 Date Recorded Body temperature Heart rate Oxygen saturation Respiratory rate Heart rate Body temperature Oxygen saturation Respiratory rate Systolic And Diastolic Systolic And Diastolic Provider Name and Address Organization Details Last Updated DateTime 2 99.1 [degF] 98 /min 96 % 18 /min 98 /min 99.1 [degF] 96 % 18 /min 155/77 mm[Hg] 155/77 mm[Hg] Not Available [employer] - [employer] 2 14:34:47 Date Recorded Respiratory rate Heart rate Oxygen saturation Systolic And Diastolic Provider Name and Address Organization Details Last Updated DateTime 12/12/2021 18 /min 86 /min 95 % 129/58 mm[Hg] Not Available [employer] 2 18:28:42 Social History None recorded. Functional Status None recorded. Mental Status None recorded. Family History Nothing Reported. Medical History No medical history recorded. Past Encounters Encounter ID Performer Location Encounter Start Date Encounter Closed Date Diagnosis/Indication Diagnosis SNOMED-CT Code Diagnosis ICD10 Code Diagnosis IMO Codes Diagnosis Note [id number] Nathaniel Mcconnell MD Main - [facility] [address] [place] [phone] 08/06/2021 17:15:40 10/15/2021 12:14:09 Altered mental status 445563067 R41.82 [id number] Lisa Dickson MD Main - [facility] [address] [place], [place] [phone] 11/08/2021 13:18:37 11/08/2021 15:39:12 [id number] Kristy Mosley MD Main - [facility] [address] [place], [place] [phone] 12/12/2021 18:28:35 12/13/2021 14:59:56 Congestive heart failure 05282290 I50.9 56y M with CHF and chronic [...] [id number] Sienna Alatorre MD Main - [facility] [address] [place] [address] 0 02/25/2022 13:53:52 03/04/2022 15:28:58 Hypoxia 308617910 R09.02 Congestive heart failure 27801170 I50.9 [id number] Nathaniel Mcconnell MD Main - [facility] [address] [place] [address] 0 04/23/2022 15:08:35 04/25/2022 10:49:48 Swelling of bilateral lower limbs 233300689 M79.89 [id number] Kristy Mosley MD Main - [facility] [address] [place], [place] [phone] 06/25/2022 17:15:30 06/26/2022 10:04:11 Dizziness [id number] R42 As noted, we were called to see this patient regarding concerns of dizziness. Evaluation in the field was performed by my guide escort colleague, as noted above, I provided real-time [...] Plan:reass urance. f/u w PCP. Primary care, considerchanell rasmussen eval if not yet done and appropriat [...] Holm Member ID Guarantor Name 03/29/[address] [facility] - DOS PRIOR TO 2022 - DUAL ELIGIBLE (MEDICARE REPLACEMENT/ADV ANTAGE - HMO) Romaine Longoria [id number] Romaine Longoria 03/29/[address] [facility] - DOS ON OR AFTER 2022 - DUAL ELIGIBLE - INTERMEDIATE OPTIONS AND ONE CARE (MEDICARE REPLACEMENT/ADV ANTAGE - HMO) Romaine Longoria [id number] Romaine Longoria Notes Date Note Type Note [...] .................... .................... .................... .................... .................... .................... . Shipping Clerk Crating Note: Sent to evaluate pt with poly [...] resolves with rest. Pt denies hx of MO/CHF. Pt states urinary incontinence mentioned in intake note is chronic since prostate CA surgery and denies dysuria. Performed 12 lead and uploaded images to [employer]. Consulted [facility] who ordered POC CMP and then 20mg of IV lasix. Advised pt to call PCP office after my departure and get an TONI in person visit. Stressed importance of red flags and low threshold for ER. Pt to weigh himself today/tomorrow to document weight loss. No further questions at this time. .................... .................... .................... .................... .................... .................... .................... . Disposition: Farida Lisa Dickson MD [address], [place], [phone], [employer] 11/08/2021 15:39:10 12/12/2021 text/html HPI: Member discharged from [facility] on 11/22/21 for CHF exacerbation, started on HCTZ-Lisinopril. member reports was put on 1500mL fluid restriction. Member hasnt been drinking fluids and reports feeling dehydrated, throat dry mouth, tired and sleepy. BP taken twice 96/64, 102/72. Member will need evaluation .................... .................... .................... .................... .................... .................... .................... . CRC Nursing Assessment: Comments: CRC RN DID NOT NEED FURTHER INFO [facility] HPI: recent admission to hospital for CHF [...] and on discharge. Kristy Mosley MD [address], [place], [phone], [employer] 12/12/2021 18:46:47 02/25/2022 text/html HPI: Romaine is [...] .................... .................... .................... .................... .................... .................... . Shipping Clerk Crating Note: Sent to evaluate pt with several [...] covid and rapid flu both negative. Consulted [facility] who agreed with this assessment that pt would benefit from further eval/imaging at ER. Placed 20g in L hand and activated EMS. Pt care transferred to [facility] and pt to be transported to [facility] ER. .................... .................... .................... .................... .................... .................... .................... . Disposition: Fulfilled Sienna Alatorre MD [address] [facility],[address], [place], [phone], [employer] 10/28/2022 17:55:02 04/23/2022 text/html HPI: 56 y/o with reports of 1 week of increased LE swelling, erythema, warmth, abrasions, fatigue. R/o LE cellulitis. .................... .................... .................... .................... .................... .................... .................... . CRC Nursing Assessment: Comments: Reviewed - Ryder CABALLERO .................... .................... .................... .................... .................... .................... .................... . Shipping Clerk Crating Note From Jerome Walls: [employer] to the [...] 241, POC labs obtained and sent to [facility]. pt denied recent falls / trauma , pt legs knees to angles swollen bi - lateral, right leg was red, neither was warm to touch or open wounds or weeping. (+/=) CSMS and pulses, [facility] contacted and ordered 40mg Lasix SIVP the pt was given a prescription to get him to his PCP appointment next week, supportive care and when to call 911 discussed. (- ) adverse on to medication administration .................... .................... .................... .................... .................... .................... .................... . Disposition: Fulfilled Nathaniel Mcconnell MD [address] [place] [address],[address], [place], [phone], [employer] 07/24/2022 14:52:33 06/25/2022 text/html HPI: Romaine is a 56 y/o male, seen for VV today by [employer]. Romaine reports earlier in the day he [...] no further information needed to process visit [facility] HPI: recurrent dizziness for past year. established w pcp. checked sugar only after eating. cbg 215. normal is 150-250 for him. no chest pain, shortness of breath. feeling better now. feels like one of his normal episdoes............ .................... .................... .................... .................... .................... .................... .......... Shipping Clerk Crating Note From Edis Colon: Pt complains of [...] . POC BGL 215mg/dI and pt afebrile. [facility] contacted who agreed that pts episode likely attributed to his diabetes and instructed pt to follow up with PCP Pt educated on S/SX that would indicate 911/ED visit and it was suggested that pt keep log of these episodes and what his BGL is during each. .................... .................... .................... .................... .................... .................... .................... . Disposition: Fulfilled Kristy Mosley MD [address] [place] [address],[address], [place], [phone], [employer] 06/25/2022 17:32:07
== END 2024-12-29 11:56 | disposition home or self-care (01) ==
LOC: HO.ENCR 09:27
PROVIDERS: PCP Nurse Practitioner Family; Visit Provider Internal Medicine Endocrinology, Diabetes & Metabolism
DX: E11.9 Type 2 diabetes mellitus without complications (principal); Z79.4 Long term (current) use of insulin
CPT/HCPCS: 99214

== ENCOUNTER 2024-12-29 10:38 | Emergency (ER) | payer MEDICARE, MEDICAID, SELFPAY ==
--- NOTE | ~2024-12-29 | XR_ITS ---
EXAMINATION: XR FOOT, LEFT CLINICAL INFORMATION: wound to ball of foot, hx DM COMPARISON: None available. TECHNIQUE: AP, lateral, and oblique views of the left foot. FINDINGS: No fracture, dislocation, or suspicious bone lesion. There is moderate hallux valgus with bunion formation involving median eminence of the first metatarsal head. There are mild degenerative changes at the first MTP joint. There are hammertoe deformities. There is a healed fracture involving the distal third metatarsal. There is no focal osteopenia or region of permeative bony change or periostitis to suggest radiographic changes of osteomyelitis. Soft tissues appear radiographically unremarkable without subcutaneous emphysema. XR/XR foot LT min 3V IMPRESSION: 1. No acute bony abnormalities. No radiographic evidence of osteomyelitis. 2. Moderate hallux valgus with bunion formation. Electronically signed by: Henry Robles MD 12/29/2024 01:02 PM YANELIS ELLINGTON
--- NOTE | ~2024-12-29 | XR_ITS ---
EXAMINATION: XR FOOT, RIGHT CLINICAL INFORMATION: wound between 3rd/4th toes COMPARISON: None available. TECHNIQUE: AP, lateral, and oblique views of the right foot. FINDINGS: There is no fracture, dislocation, or suspicious bone lesion. There is moderate hallux valgus with mild degenerative arthritis at the first MTP joint. There are hammertoe deformities. There is no focal osteopenia or region of permeative bone change or periostitis to suggest radiographic changes of osteomyelitis. Soft tissues appear radiographically unremarkable without subcutaneous emphysema. XR/XR foot RT min 3V IMPRESSION: 1. No acute bony abnormalities. No radiographic evidence of osteomyelitis. 2. Moderate hallux valgus. Electronically signed by: Henry Robles MD 12/29/2024 12:59 PM YANELIS ELLINGTON
--- NOTE | ~2024-12-29 | CT_ITS ---
EXAMINATION: CT FOOT WITHOUT CONTRAST, LEFT CLINICAL INFORMATION: Diabetic foot wound COMPARISON: Same day x-ray TECHNIQUE: Axial CT was performed through the left foot without contrast Coronal and sagittal reformatted images were generated from the original axial data set. ALARA: The examination used one or more of the following radiation dose reduction techniques: Automated exposure control, iterative reconstruction, and/or adjustment of mA and/or KV. FINDINGS: There is hallux valgus deformity across the first metatarsophalangeal joint. There is degenerative sclerosis and cystic change in the first metatarsal head. There are also marginal osteophytes involving the first MTP joint and first metatarsal head articulation with sesamoids. There is a healed fracture involving the neck region of the third metatarsal. Degenerative cystic changes are present involving the medial side of the intermediate cuneiform. There are no marginal osteophytes involving the dorsal midfoot. The talar dome is intact. There is a metal BB placed on the surface of the skin plantar to the base of the second digit. No bony erosions are evident here. There is soft tissue ulceration 15 mm diameter. It does not clearly extend to the bone. Extends through subcutaneous soft tissues to within 4 mm of the second metatarsal head. There is likely a second more superficial area of ulceration just medial to the aforementioned There is edema in the adjacent soft tissues. Additionally, there is generalized subcutaneous soft tissue edema throughout the foot. There is moderate fatty replacement of foot musculature. Achilles tendon and plantar fascial grossly intact. Medial, peroneal, and anterior ankle tendons are intact. Syndesmotic ligaments are grossly intact. Talofibular and calcaneofibular ligaments are grossly intact. CT/CT foot LT wo IV con IMPRESSION: There is a 15 mm soft tissue ulceration plantar to the second metatarsal head and likely a second more superficial ulceration just lateral to the aforementioned. There is no visible erosion in the adjacent bone. There is generalized edema and/or cellulitis. 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 Electronically signed by: Bear Butler MD 12/29/2024 03:00 PM EST
[2024-12-29 10:43] VITALS: BP 138/90; PULSE 72; O2SAT 93
[2024-12-29 10:45] VITALS: BP 136/81; PULSE 69; RESP 18; TEMP 36.6; O2SAT 93; BMI 30.2
--- NOTE | 2024-12-29 11:28 | PC.NURSE ---
Patient attempting to provide urine specimen at this time. Aware of plan to send urine specimen, and obtain IV access & labs. Rule out osteomyelitis to left foot.
[2024-12-29 12:11] LABS: MANUAL DIFF FLAG NO
--- NOTE | 2024-12-29 12:11 | PC.NURSE ---
Labs drawn and sent for analysis, results pending. Awaiting ED provider evaluation. 20g IV access established to left AC. Care ongoing by this RN.
[2024-12-29 12:13] LABS: Hematocrit 39.6 % (42.0-52.0); Hemoglobin 13.0 g/dl (14.0-18.0); Imm Gran Abs Auto 0.03 X10*3/uL (0.00-0.03); Imm Gran Pct Auto 0.3 % (0.0-0.4); Lymphocytes Absolute Auto 1.5 X10*3/uL (1.2-4.9); Mean Corpuscular HGB Conc 32.8 g/dl (31.0-36.0); Mean Corpuscular Hemoglobin 29.1 pg (27.0-33.0); Mean Corpuscular Volume 88.8 fL (80.0-98.0); NRBC Abs Auto 0.000 X10*3/uL (0.0-0.012); NRBC Pct Auto 0.0 /100WBC (0.0-0.2); Platelet Count 296 X10*3/uL (160-400); Red Blood Count 4.46 X10*6/uL (4.60-5.80); White Blood Count 9.5 X10*3/uL (4.8-10.8)
[2024-12-29 12:19] LABS: Appearance Urine Clear; Glucose Urine UA 250 mg/dL (Negative); PH 5.5 (5.0-9.0); Specific Gravity - Urine 1.010 (1.005-1.025)
[2024-12-29 12:30] LABS: Alanine Aminotransferase 35 U/L (0-40); Albumin Level 4.6 g/dL (3.5-5.0); Alkaline Phosphatase 116 U/L (39-117); Anion Gap 12 (12-20); Blood Urea Nitrogen 34 mg/dL (9-16); Calcium 9.6 mg/dL (8.4-10.2); Carbon Dioxide 25 mmol/L (22-29); Chloride 104 mmol/L (96-108); Creatinine Clr Calc Pharmacy 59.3; Estimated Glomerular Filt Rate 45; Magnesium 2.0 mg/dL (1.6-2.6); Potassium 4.4 mmol/L (3.3-5.1); Sodium 137 mmol/L (135-145); Total Protein 7.8 g/dL (6.5-8.0)
--- NOTE | 2024-12-29 12:37 | ED.WOUNDLAC ---
HPI - Wound/Laceration General Chief Complaint: Wound/Laceration Stated Complaint: L FOOT WOUND PER EMS Time Seen by Provider: 12/29/24 12:09 Source: patient Mode of arrival: ambulatory Limitations: no limitations History of Present Illness ED Provider: ANDRA SALAMANCA PA-C HPI narrative: 59 year old male with pmhx significant for insulin dependent DM, PVD, CAD, CKD, sent here today from [facility] wound clinic for further evaluation of wound on the sole of his left foot. States that he has been keeping it clean but developed odor and pain that has been worsening over the last few days. Pain is reported to be around the ulcer and does not impact his ability to move his toes or ankle. Also reports swelling of his LLE which is his baseline. Denies numbness/tingling in b/l feet, R foot pain, headaches, dizziness, lightheadedness, chest pain, shortness of breath, abdominal pain, nausea, vomiting, diarrhea. Related Data Home Medications ?Medication ?Instructions ?Recorded ?Confirmed metoprolol succinate 50 mg 50 mg PO DAILY 11/08/24 12/29/24 tablet,extended release 24 hr montelukast 10 mg tablet 10 mg PO DAILY 12/12/24 12/29/24 sertraline 100 mg tablet 100 mg PO DAILY 12/12/24 12/29/24 Previous Rx's ?Medication ?Instructions ?Recorded blood-glucose sensor (Dexcom G7 #3 ea 08/29/24 Sensor device) atorvastatin 10 mg tablet (Lipitor) 10 mg PO BEDTIME #90 tabs 09/16/24 blood sugar diagnostic (Accu-Chek #100 ea 09/16/24 Guide test strips) dulaglutide 0.75 mg/0.5 mL 0.75 mg (0.5 mL) subcut QWEEK #2 mL 09/16/24 subcutaneous pen injector (Trulicity) lancets (Accu-Chek Softclix #100 ea 09/16/24 Lancets) blood-glucose meter (Accu-Chek #1 ea 09/20/24 Guide Glucose Meter) acamprosate 333 mg tablet,delayed 666 mg (2 x 333 mg) PO TID #540 10/25/24 release tabs fluticasone 250 mcg-salmeterol 50 1 ea inhalation BID #60 ea 10/25/24 mcg/dose blistr powdr for inhalation folic acid 1 mg tablet 1 mg PO DAILY #90 tabs 10/25/24 levothyroxine 200 mcg tablet 200 mcg PO DAILY@0600 #90 tabs 10/25/24 omeprazole 20 mg capsule,delayed 20 mg PO DAILY@0630 #90 caps 10/25/24 release pregabalin 75 mg capsule 75 mg PO BID #180 caps 10/25/24 tamsulosin 0.4 mg capsule (Flomax) 0.4 mg PO BEDTIME #90 caps 10/25/24 alcohol swabs (Alcohol Prep Pads) See Rx Instructions topical 10/26/24 .COMPLEX #200 ea insulin glargine 100 unit/mL (3 10 unit (0.1 mL) subcut BEDTIME 10/26/24 mL) subcutaneous pen (Lantus #15 mL Solostar U-100 Insulin) metformin 500 mg tablet 500 mg PO BID #180 tabs 10/26/24 pen needle, diabetic 32 gauge x #100 ea 10/27/24 losartan 50 mg tablet 50 mg PO DAILY #90 tabs 11/08/24 fluticasone propionate 50 1 spray intranasal DAILY #16 grams 11/25/24 mcg/actuation nasal spray,suspension zinc oxide 20 % topical paste 1 ea topical DAILY #57 grams 11/28/24 mometasone 0.1 % topical cream 1 appl topical DAILY #15 grams 11/30/24 bicalutamide 50 mg tablet 50 mg PO DAILY 90 days #90 tabs 12/13/24 aspirin 81 mg tablet,delayed 81 mg PO DAILY #30 tabs 12/26/24 release (Ecotrin Low Strength) cephalexin 500 mg capsule 500 mg PO QID 7 days #28 caps 12/29/24 doxycycline hyclate 100 mg tablet 100 mg PO BID 7 days #14 tabs 12/29/24 levofloxacin 250 mg tablet 250 mg PO DAILY #7 tabs 01/03/25 Allergies Allergy/AdvReac Type Severity Reaction Status Date / Time No Known Allergies Allergy Verified 12/29/24 10:52 Review of Systems Review of Systems: Yes all other systems are reviewed and are negative [facility] Past Medical History Attestation statement: The following information was validated with the patient. Source: old records reviewed and nursing notes reviewed Medical History History of osteomyelitis Spinal stenosis Hydrocele Hx of gout Umbilical hernia Diverticular disease History of MRSA infection of lungs History of alcohol withdrawal delirium Anxiety with depression Critical illness myopathy Nasal septal defect ETOH abuse Throat cancer Surgical History History of surgery on lower extremity H/O excision of mass Family History Family History Father No problems noted. Mother No problems noted. Social History Social History Household Members: None Housing: House Do you presently have visiting nurse or other home services: Yes Alcohol intake: current Alcohol intake frequency: 3 or more drinks per day Alcohol type: beer Comment: 1:1 sitter Patient Tobacco Use Status: Current everyday Tobacco user Tobacco use type: Cigarette Cigarettes Per Day: 10 e-Cigarette/Vaping Use: Never Used Second Hand Smoke Exposure: No Advance Directives Date on File: 06/06/24 service: No Current occupational status: retired Current occupational exposures/hazards: No Cognitive needs: No Hearing needs: No Vision needs: No Physical Exam Vital Signs: Vital Signs: Last Vital Signs Temp 97.9 F 12/29/24 16:53 Pulse 69 12/29/24 16:53 Resp 18 12/29/24 16:53 BP 136/81 12/29/24 16:53 Pulse Ox 93 12/29/24 16:53 O2 Del Method Room Air 12/29/24 16:53 BMI result Body Mass Index 30.2 vital signs stable, afebrile General: Well appearing, in no acute distress. Skin: Warm, dry, intact. No rashes or lesions. Head: Normocephalic, atraumatic. EENT: Hearing is intact b/l. Conjunctiva clear. PERRLA. EOM intact. Moist mucous membranes.? Cardiac: Chest wall symmetric. RRR Lungs: Normal respiratory effort without accessory muscle use. CTA bilaterally. Ext: +there is an ulcerated lesion to the ball of L foot, no surrounding erythema, no tracking, no purulent drainage, ttp no palpable fluctuance, warmth, crepitus. Neuro: AOx3. Normal speech. Ambulating with steady gait. Course Course Course Narrative: Imaging w/o evidence of osteomyelitis. labs unremarkable. The area does not appear to be acutely infected however given DM - will cover w/ abx and refer to podiatry. Chronic wound dressed in ED, post op shoe applied for comfort. Culture sent. Patient has remained stable throughout ED visit today. Discussed worrisome signs and symptoms and when to return to the ED. All questions answered at this time. Patient is agreeable with disposition and stable for discharge. Reevaluation(s) Reevaluation #1: Wound culture from 12/29 growing MRSA and Pseudomonas. d/c with doxy and keflex. called patient's home and spoke with Jigna his HCP, instructed her to stop the keflex, continue doxy and start levofloxacin. prescribed at 250mg daily given CKD. advised to get close monitoring with labs. they have an appointment with podiatry tomorrow and will discuss micro results and plan. all questions answered. Time: 07:17 Medications Administered Discontinued Medications Generic Name Dose Route Start Last Admin Trade Name Freq PRN Reason Stop Dose Admin Sodium Chloride 1,000 mls @ 999 mls/hr 12/29/24 14:00 12/29/24 15:36 Ns IV 12/29/24 15:00 Infused .Q1H1M MARKO Infusion Acetaminophen 1,000 mg in 100 mls @ 400 mls/hr 12/29/24 13:58 12/29/24 14:51 Ofirmev IV 12/29/24 14:12 Infused ONCE ONE Infusion Medical Decision Making Medical Decision Making [facility] Narrative: 59 year old male with pmhx significant for insulin dependent DM, PVD, CAD, CKD, sent here today from [facility] wound clinic for further evaluation of wound on the sole of his left foot. vitals stable, no fever. on exam, there is an ulcerated lesion to the ball of L foot, no surrounding erythema, no tracking, no purulent drainage, ttp no palpable fluctuance, warmth, crepitus. Differential diagnosis includes chronic wound, ulcer, cellulitis, osteomyelitis Plan for labs, imaging, re-eval. Differential Diagnosis Differential Diagnoses: The differential diagnosis associated with the presentation includes as above. Admission/Observation not indicated. Lab Data [facility] Lab Attestation statement: I reviewed the patient's lab results. as above. 12/29/24 12:02 11/20/25 15:43 Labs: Lab Results 12/29/24 12/29/24 12/29/24 Range/Units 11:53 12:02 15:43 WBC 9.5 (4.8-10.8) X10*3/uL RBC 4.46 L (4.60-5.80) X10*6/uL Hgb 13.0 L (14.0-18.0) g/dl Hct 39.6 L (42.0-52.0) % MCV 88.8 (80.0-98.0) fL MCH 29.1 (27.0-33.0) pg MCHC 32.8 (31.0-36.0) g/dl RDW 14.2 (11.0-16.0) % Plt Count 296 (160-400) X10*3/uL MPV 9.5 (9.4-12.4) fL Immature Gran % (Auto) 0.3 (0.0-0.4) % Neut % (Auto) 75.1 H (45-73) % Lymph % (Auto) 15.7 L (20-40) % [place] % (Auto) 6.2 (2-11) % Eos % (Auto) 2.1 (0-4) % Baso % (Auto) 0.6 (0-2) % Lymph # (Auto) 1.5 (1.2-4.9) X10*3/uL [place] # (Auto) 0.6 (0.1-1.2) X10*3/uL Eos # (Auto) 0.2 (0.0-0.4) X10*3/uL Baso # (Auto) 0.1 (0.0-0.2) X10*3/uL Abs Immat Gran (auto) 0.03 (0.00-0.03) X10*3/uL Absolute Neuts (auto) 7.1 (2.0-8.3) x10*3/uL Absolute Nucleated RBC 0.000 (0.0-0.012) X10*3/uL Nucleated RBC % (auto) 0.0 (0.0-0.2) /100WBC Sodium 137 138 (135-145) mmol/L Potassium 4.4 4.2 (3.3-5.1) mmol/L Chloride 104 107 (96-108) mmol/L Carbon Dioxide 25 24 (22-29) mmol/L Anion Gap 12 11 L (12-20) BUN 34 H 31 H (9-16) mg/dL Creatinine 1.58 H 1.39 (0.5-1.4) mg/dL Estim Creat Clear Calc 59.3 67.5 Estimated GFR 45 52 Random Glucose 139 H 112 (60-115) mg/dL Lactic Acid 0.6 (0.5-2.0) mmol/L Calcium 9.6 8.6 D (8.4-10.2) mg/dL Magnesium 2.0 (1.6-2.6) mg/dL Total Bilirubin 0.2 (0.0-1.0) mg/dL AST 26 (5-37) U/L ALT 35 (0-40) U/L Alkaline Phosphatase 116 (39-117) U/L Total Protein 7.8 (6.5-8.0) g/dL Albumin 4.6 (3.5-5.0) g/dL Urine Color Yellow Urine Appearance Clear Urine pH 5.5 (5.0-9.0) Ur Specific [place] 1.010 (1.005-1.025) Urine Protein Negative (Neg-Trace) mg/dL Urine Glucose (UA) 250 H (Negative) mg/dL Urine Ketones Negative (Negative) mg/dL Urine Blood Negative (Negative) Urine Nitrite Negative (Negative) Ur Leukocyte Esterase Negative (Negative) Independent Interpretation I performed an independent interpretation of an: Plain X-Ray and CT Scan Interpretation: XR L foot w/o osseous erosion ct L foot w/o osseous erosion Radiology Impression Discussion of test interpretation with radiology: I have reviewed the radiologist's reading. Radiologist Impression: Procedure(s): XR foot LT min 3V Accession Number(s): [id number] cc: Maya BullardP-; Andra Salamanca~ Reason for Exam: wound to ball of foot, hx DM EXAMINATION: XR FOOT, LEFT CLINICAL INFORMATION: wound to ball of foot, hx DM COMPARISON: None available. TECHNIQUE: AP, lateral, and oblique views of the left foot. FINDINGS: No fracture, dislocation, or suspicious bone lesion. There is moderate hallux valgus with bunion formation involving median eminence of the first metatarsal head. There are mild degenerative changes at the first MTP joint. There are hammertoe deformities. There is a healed fracture involving the distal third metatarsal. There is no focal osteopenia or region of permeative bony change or periostitis to suggest radiographic changes of osteomyelitis. Soft tissues appear radiographically unremarkable without subcutaneous emphysema. XR/XR foot LT min 3V IMPRESSION: 1. No acute bony abnormalities. No radiographic evidence of osteomyelitis. 2. Moderate hallux valgus with bunion formation. Date of Service: 12/29/24 Procedure(s): XR foot RT min 3V Accession Number(s): [id number] cc: Maya Bullard; Andra Salamanca~ Reason for Exam: wound between 3rd/4th toes EXAMINATION: XR FOOT, RIGHT CLINICAL INFORMATION: wound between 3rd/4th toes COMPARISON: None available. TECHNIQUE: AP, lateral, and oblique views of the right foot. FINDINGS: There is no fracture, dislocation, or suspicious bone lesion. There is moderate hallux valgus with mild degenerative arthritis at the first MTP joint. There are hammertoe deformities. There is no focal osteopenia or region of permeative bone change or periostitis to suggest radiographic changes of osteomyelitis. Soft tissues appear radiographically unremarkable without subcutaneous emphysema. XR/XR foot RT min 3V IMPRESSION: 1. No acute bony abnormalities. No radiographic evidence of osteomyelitis. 2. Moderate hallux valgus. Electronically signed by: Henry Robles MD 12/29/2024 12:59 PM [facility] Procedure(s): CT foot LT wo IV con Accession Number(s): [id number] cc: Maya Bullard; Andra Salamanca~ Report Number: [id number]: Total DLP = 135.00 mGy-cm Reason for Exam: Diabetic foot wound EXAMINATION: CT FOOT WITHOUT CONTRAST, LEFT CLINICAL INFORMATION: Diabetic foot wound COMPARISON: Same day x-ray TECHNIQUE: Axial CT was performed through the left foot without contrast Coronal and sagittal reformatted images were generated from the original axial data set. ALARA: The examination used one or more of the following radiation dose reduction techniques: Automated exposure control, iterative reconstruction, and/or adjustment of mA and/or KV. FINDINGS: There is hallux valgus deformity across the first metatarsophalangeal joint. There is degenerative sclerosis and cystic change in the first metatarsal head. There are also marginal osteophytes involving the first MTP joint and first metatarsal head articulation with sesamoids. There is a healed fracture involving the neck region of the third metatarsal. Degenerative cystic changes are present involving the medial side of the intermediate cuneiform. There are no marginal osteophytes involving the dorsal midfoot. The talar dome is intact. There is a metal BB placed on the surface of the skin plantar to the base of the second digit. No bony erosions are evident here. There is soft tissue ulceration 15 mm diameter. It does not clearly extend to the bone. Extends through subcutaneous soft tissues to within 4 mm of the second metatarsal head. There is likely a second more superficial area of ulceration just medial to the aforementioned There is edema in the adjacent soft tissues. Additionally, there is generalized subcutaneous soft tissue edema throughout the foot. There is moderate fatty replacement of foot musculature. Achilles tendon and plantar fascial grossly intact. Medial, peroneal, and anterior ankle tendons are intact. Syndesmotic ligaments are grossly intact. Talofibular and calcaneofibular ligaments are grossly intact. CT/CT foot LT wo IV con IMPRESSION: There is a 15 mm soft tissue ulceration plantar to the second metatarsal head and likely a second more superficial ulceration just lateral to the aforementioned. There is no visible erosion in the adjacent bone. There is generalized edema and/or cellulitis. 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 Electronically signed by: Bear Butler MD 12/29/2024 03:00 PM [facility] External Record Review External record reviewed: Inpatient record, Office record and Outpatient record Prescription Management I considered prescription management with: Pain Medication and Antibiotic Chronic Conditions Patient?s care impacted by: Diabetes Social Determinants Patient?s care significantly limited by Social Determinants of Health including: Other Social Determinant of Health Procedures Orthopedic Splinting/Casting Injury #1: Side: left Lower Extremity Injury Location: foot Lower Extremity Immobilizer: post-op shoe Critical Care Time Critical Care Time Critical Care Time: No Discharge Plan Discharge Clinical Impression: Wound of foot Patient Disposition: Home, Self-Care Instructions: Chronic Wounds (ED) Additional Instructions: You were evaluated in the ED today for chronic wound to your left foot. Your blood work is reassuring. Your kidney function was slightly elevated, you were given fluids in ED today. Please make sure you are staying adequately hydrated, drinking lots of water. The xray and ct scan of your foot does not demonstrate any infection within the bone. At this time, I am starting you on antibiotics. Keflex and doxycycline have been sent to your pharmacy. Take these as prescribed and to completion. Continue following with wound care outpatient. I am also providing you with a referral to podiatry. call them to establish care, they will not all you. Return with any new or worsening symptoms. In the case of an emergency call 911. Prescriptions: New cephalexin 500 mg capsule 500 mg PO QID 7 Days Qty: 28 0RF doxycycline hyclate 100 mg tablet 100 mg PO BID 7 Days Qty: 14 0RF levofloxacin 250 mg tablet 250 mg PO DAILY Qty: 7 0RF No Action (DME) Accu-Chek Guide test strips Strip See Rx Instructions .ROUTE .MEDSUPPLY Qty: 100 3RF Rx Instructions: use once daily As directed to monitor blood sugars (DME) lancets [Accu-Chek Softclix Lancets] Misc See Rx Instructions .ROUTE .MEDSUPPLY Qty: 100 3RF Rx Instructions: use once daily As directed to monitor blood sugars (DME) blood-glucose meter [Accu-Chek Guide Glucose Meter] Misc See Rx Instructions .ROUTE .MEDSUPPLY Qty: 1 0RF Rx Instructions: Use once daily As directed to monitor blood sugars metformin 500 mg tablet 500 mg PO BID Qty: 180 2RF insulin glargine [Lantus Solostar U-100 Insulin] 100 unit/mL (3 mL) insulin pen 10 unit subcut BEDTIME Qty: 15 0RF alcohol swabs [Alcohol Prep Pads] Pads, Medicated See Rx Instructions topical .COMPLEX Qty: 200 3RF Rx Instructions: topically; use 1 prep pad to clean skin prior to injections up to 5 x daily (DME) pen needle, diabetic 32 gauge x 5/32 needle See Rx Instructions .MEDSUPPLY Qty: 100 3RF Rx Instructions: Use daily As directed zinc oxide 20 % paste 1 ea topical DAILY Qty: 57 12RF Rx Instructions: apply around foot ulcer daily mometasone 0.1 % cream 1 appl topical DAILY Qty: 15 1RF fluticasone propionate 50 mcg/actuation spray,suspension 1 spray intranasal DAILY Qty: 16 12RF aspirin [Ecotrin Low Strength] 81 mg tablet,delayed release (DR/EC) 81 mg PO DAILY Qty: 30 11RF (DME) Dexcom G7 Sensor Device See Rx Instructions .ROUTE QWEEK Qty: 3 5RF Rx Instructions: Use daily As directed Trulicity 0.75 mg/0.5 mL pen injector 0.75 mg subcut QWEEK Qty: 2 3RF atorvastatin [Lipitor] 10 mg tablet 10 mg PO BEDTIME Qty: 90 0RF fluticasone propion-salmeterol 250-50 mcg/dose blister with device 1 ea inhalation BID Qty: 60 12RF levothyroxine 200 mcg tablet 200 mcg PO DAILY@0600 Qty: 90 2RF omeprazole 20 mg capsule,delayed release(DR/EC) 20 mg PO DAILY@0630 Qty: 90 2RF pregabalin 75 mg capsule 75 mg PO BID Qty: 180 2RF acamprosate 333 mg tablet,delayed release (DR/EC) 666 mg PO TID Qty: 540 2RF folic acid 1 mg tablet 1 mg PO DAILY Qty: 90 2RF tamsulosin [Flomax] 0.4 mg capsule 0.4 mg PO BEDTIME Qty: 90 2RF metoprolol succinate 50 mg tablet extended release 24 hr 50 mg PO DAILY losartan 50 mg tablet 50 mg PO DAILY Qty: 90 0RF sertraline 100 mg tablet 100 mg PO DAILY montelukast 10 mg tablet 10 mg PO DAILY bicalutamide 50 mg tablet 50 mg PO DAILY 90 Days Qty: 90 0RF Referrals: [facility] Podiatry [Provider Group, Podiatry] Maya Bullard, [employer] SCI[employer]IST-BC [Primary Care Provider, Internal Medicine] Interventions: ED Discharge Assessment Last Done: 12/29/24 16:53 Discharge Date/Time: 12/29/24 16:57 Print Language: Kiswahili
[2024-12-29 12:44] LABS: Aspartate Amino Transferase 26 U/L (5-37)
[2024-12-29 16:05] LABS: Anion Gap 11 (12-20); Blood Urea Nitrogen 31 mg/dL (9-16); Calcium 8.6 mg/dL (8.4-10.2); Carbon Dioxide 24 mmol/L (22-29); Chloride 107 mmol/L (96-108); Creatinine Clr Calc Pharmacy 67.5; Estimated Glomerular Filt Rate 52; Potassium 4.2 mmol/L (3.3-5.1); Sodium 138 mmol/L (135-145)
[2024-12-29 16:53] VITALS: BP 136/81; PULSE 69; RESP 18; TEMP 36.6; O2SAT 93
== END 2024-12-29 16:57 | disposition home or self-care (01) ==
PROVIDERS: Physician Assistant Medical; Emergency Provider Emergency Medicine; PCP Nurse Practitioner Family
DX: E11.621 Type 2 diabetes mellitus with foot ulcer (principal); L97.529 Non-pressure chronic ulcer of other part of left foot with unspecified severity; M79.672 Pain in left foot; E11.22 Type 2 diabetes mellitus with diabetic chronic kidney disease; N18.9 Chronic kidney disease, unspecified; Z79.899 Other long term (current) drug therapy
CPT/HCPCS: 36415; 73630; 73700; 80048; 80053; 81003; 82947; 83605; 83735; 85025; 87040; 87070; 87077; 87186; 87205; 96361; 96374; 99212; 99284; J0131

== ENCOUNTER → 2024-12-29 12:30 | Outpatient (BNV) | payer MEDICARE, MEDICAID, SELFPAY | PROVIDERS: Emergency Provider Emergency Medicine; PCP Nurse Practitioner Family; Visit Provider Radiology Diagnostic Radiology | DX: L97.522 Non-pressure chronic ulcer of other part of left foot with fat layer exposed (principal); S91.332A Puncture wound without foreign body, left foot, initial encounter; M20.12 Hallux valgus (acquired), left foot; S91.331A Puncture wound without foreign body, right foot, initial encounter; M20.11 Hallux valgus (acquired), right foot; M19.072 Primary osteoarthritis, left ankle and foot | CPT/HCPCS: 73630; 73700 ==

== ENCOUNTER 2025-01-04 08:57 | Outpatient (REF) | payer MEDICARE, MEDICAID, SELFPAY ==
--- OUTSIDE RECORDS SUMMARY | 2025-01-04 10:25 | XMS_ITS | Clinical Summary ---
Author Organization [facility] Address [address] [place] [address] Care Team Providers Care Pest Control Applicator Name Role Phone Rita Fierro MD Primary [...] age to complete this topic Care Teams Pest Control Applicator Relationship Specialty Start Date End Date Riat Fierro MD [address] [place] [address] [place] [address] PCP - General Internal Medicine 08/02/16
--- OUTSIDE RECORDS SUMMARY | 2025-01-04 10:25 | XMS_ITS | Clinical Summary ---
Author Organization [address] [facility] Address [address] [place] [address] Phone Care Team Providers Care Bar Back Name Role Phone Rita Fierro MD Primary [...] EDT Type 2 diabetes mellitus without complications ([facility] V24, [facility] V28) COMPREHENSIVE METABOLIC PANEL Routine 06/06/2024 7:22 AM EDT Essential (primary) hypertension Type 2 diabetes mellitus without complications ([facility] V24, [facility] V28) Metabolic encephalopathy Alcohol use, unspecified with withdrawal delirium ([facility] V24, [facility] V28) from Last 3 Months or Most Recently Relevant to Health Maintenance Results * (ABNORMAL) Hemoglobin A1c (06/08/2024 7:34 AM EDT) Pathologist [facility] Hemoglobin A1C 7.1(H) <6.5 % LAB CHEMISTRY METHOD 06/08/2024 12:47 PM EDT [facility] Mean Bld Glu Estim. 157 mg/dL LAB CHEMISTRY METHOD 06/08/2024 12:47 PM EDT [facility] Blood Venous blood specimen / Unknown Venipuncture / Unknown 06/08/2024 7:34 AM EDT 06/08/2024 10:04 AM EDT us Krishan Sotelo MD LAB BLOOD ORDERABLES Final Resul t [facility] [address] [place] [address], * (ABNORMAL) Comprehensive metabolic panel (06/06/2024 7:22 AM EDT) [facility] Sodium 134 133 - 145 mmol/L LAB CHEMISTRY METHOD 06/06/2024 12:50 PM EDT [facility] Potassium 4.0 3.5 - 5.5 mmol/L LAB CHEMISTRY METHOD 06/06/2024 12:50 PM EDT [facility] Chloride 100 [...] LAB CHEMISTRY METHOD 06/06/2024 12:50 PM EDT [facility] Total Bilirubin 0.4 0.0 - 1.4 mg/dL LAB CHEMISTRY METHOD 06/06/2024 12:50 PM EDT [facility] Blood Venous blood specimen / Unknown Venipuncture / Unknown 06/06/2024 7:22 AM EDT 06/06/2024 9:08 AM EDT us Krishan Sotelo MD LAB BLOOD ORDERABLES Final Resul t [facility] ([facility]) [facility] [address] [place] [address], from Last 3 Months or Most Recently Relevant to Health Maintenance Insurance [employer] MEDICARE [place]ICAID - [place] Advance Directives Documents on File Type Date Recorded Patient Patient Safety Tech Expl anation Health Care Decision (hx) 09/27/2018 [...] (hx) 09/27/2018 AD GARCIA DIRECTIVE Care Teams Bar Back Relationship Specialty Start Date End Date Rita Fierro MD [address] [place] [address] PCP - General Internal Medicine 08/02/16
--- OUTSIDE RECORDS SUMMARY | 2025-01-04 10:25 | XMS_ITS | Clinical Summary ---
Author Organization [employer] Address [address] [facility] 7t [place] [address] Care Team Providers Care Manager Delivery Name Role Phone Unavailable Primary Care Provider [...] patient[id number] [facility] MEDICARE ADVANTAGE
--- OUTSIDE RECORDS SUMMARY | 2025-01-04 10:25 | XMS_ITS | Clinical Summary ---
Author Organization [facility] Address [address] [address] Care Team Providers Care Foundry Superintendant Name Role Phone Rita Fierro MD Primary [...] patient's age to complete this topic Insurance [facility] JULIET VALDIVIA [id number] Care Teams Foundry Superintendant Relationship Specialty Start Date End Date Rita Fierro MD [facility] [address] [place] [address] [address] [place], [place] PCP - General 02/20/20
--- OUTSIDE RECORDS SUMMARY | 2025-01-04 10:25 | XMS_ITS | Encounter Summary ---
Author Organization [facility] Address [address] [place] [address] Care Team Providers Care Physical Therapy Coordinator Name Role Phone Rita Fierro MD Primary Care Provide r Encounter Details Date Type Department Care Team (Late st Contact Info) Description 06/08/2024 Lab Requisition [facility] - Main Lab [address] [facility] [place] [address] Krishan Sotelo MD [address] [place] [address] [address] [place], [phone] Type 2 diabetes mellitus without complications [...] LAB CHEMISTRY METHOD 06/08/2024 12:47 PM EDT [facility] ([facility]) [facility] Mean Bld Glu Estim. 157 mg/dL LAB CHEMISTRY METHOD 06/08/2024 12:47 PM EDT [facility] Blood Venous blood specimen / Unknown Venipuncture / Unknown 06/08/2024 7:34 AM EDT 06/08/2024 10:04 AM EDT us Krishan Sotelo MD LAB BLOOD ORDERABLES Final Resul t [facility] [address] [place] [address], documented in this encounter Visit Diagnoses Diagnosis Type 2 diabetes mellitus without complications (CMS/HCC V24, CMS/HCC V28) documented in this encounter Care Teams Physical Therapy Coordinator Relationship Specialty Start Date End Date Rita Fierro MD [address] [place] [address] [place] PCP - General Internal Medicine 08/02/16 documented as of this encounter
--- OUTSIDE RECORDS SUMMARY | 2025-01-04 10:25 | XMS_ITS | Encounter Summary ---
Author Organization [facility] Address [address] [place] [phone] Care Team Providers Care Golf Starter And Ranger Name Role Phone Rita Fierro MD Primary Care Provide r Encounter Details Date Type Department Care Team (Late st Contact Info) Description 06/06/2024 Lab Requisition [facility] - Main Lab [address] [facility] [place] [address] Krishan Sotelo MD [address] [place] [address] [address] [facility] [phone] Essential (primary) hypertension; Type 2 diabetes [...] 2 diabetes mellitus without complications (CMS/HCC V24, [facility] V28) Metabolic encephalopathy Alcohol use, unspecified with withdrawal delirium ([facility] V24, [facility] V28) COMPREHENSIVE METABOLIC PANEL Routine 06/06/2024 7:22 AM EDT Essential (primary) hypertension Type 2 diabetes mellitus without complications ([facility] V24, [facility] V28) Metabolic encephalopathy Alcohol use, unspecified with withdrawal delirium ([facility] V24, [facility] V28) documented in this encounter Results * (ABNORMAL) CBC auto differential (06/06/2024 7:22 AM EDT) [facility] WBC 9.4 4.8 - 10.8 K/mcL LAB HEMETOLOGY METHOD 06/06/2024 10:[address] [facility] RBC 2.80(L) 4.50 - 5.50 M/mcL LAB HEMETOLOGY METHOD 06/06/2024 10:[address] [facility] Hemoglobin 9.2(L) 13.5 - 17.5 g/dL LAB HEMETOLOGY METHOD 06/06/2024 10:[address] [facility] Hematocrit 28.4(L) 42.0 - 54.0 % LAB HEMETOLOGY METHOD 06/06/2024 10:[address] [facility] MCV 102.9(H) 79.0 - 98.0 FL LAB HEMETOLOGY METHOD 06/06/2024 10:[address] [facility] MCH 33.3(H) 27.0 - 32.0 pcg LAB HEMETOLOGY METHOD 06/06/2024 10:[address] [facility] MCHC 32.4 32.0 - 37.0 g/dL LAB HEMETOLOGY METHOD 06/06/2024 10:[address] [facility] RDW 15.5(H) 11.0 - 15.0 % LAB HEMETOLOGY METHOD 06/06/2024 10:[address] [facility] Platelets 505(H) 130 - 400 K/mcL LAB HEMETOLOGY METHOD 06/06/2024 10:[address] [facility] MPV 10.2 7.0 - 11.0 FL LAB HEMETOLOGY METHOD 06/06/2024 10:[address] [facility] NRBC 0.0 <1.0 % LAB HEMETOLOGY METHOD 06/06/2024 10:[address] [facility] NRBC Absolute 0.00 <0.10 K/mcL LAB HEMETOLOGY METHOD 06/06/2024 10:[address] [facility] Neutrophils Relative 71.0 % LAB HEMETOLOGY METHOD 06/06/2024 10:[address] [facility] Lymphocytes Relative 13.6 % LAB HEMETOLOGY METHOD 06/06/2024 10:[address] [facility] Monocytes Relative 7.0 % LAB HEMETOLOGY METHOD 06/06/2024 10:[address] [facility] Eosinophils Relative 6.1 % LAB HEMETOLOGY METHOD 06/06/2024 10:[address] [facility] Basophils Relative 1.1 % LAB HEMETOLOGY METHOD 06/06/2024 10:[address] [facility] Immature Granulocytes Relative 1.2 % LAB HEMETOLOGY METHOD 06/06/2024 10:[address] [facility] Neutrophils Absolute 6.66 1.50 - 7.00 K/mcL LAB HEMETOLOGY METHOD 06/06/2024 10:[address] [facility] Lymphocytes Absolute 1.28 1.00 - 5.00 K/mcL LAB HEMETOLOGY METHOD 06/06/2024 10:[address] [facility] Monocytes Absolute 0.66 0.20 - [...] Final Resul t [facility] [address] [place] [address], [place] [phone] * (ABNORMAL) Comprehensive metabolic panel (06/06/2024 7:22 AM EDT) Sodium 134 133 - 145 mmol/L LAB CHEMISTRY METHOD 06/06/2024 12:[address] [facility] Potassium 4.0 3.5 - 5.5 mmol/L LAB CHEMISTRY METHOD 06/06/2024 12:[address] [facility] Chloride 100 96 - 110 mmol/L LAB CHEMISTRY METHOD 06/06/2024 12:[address] [facility] CO2 24 21 - 32 mmol/L LAB CHEMISTRY METHOD 06/06/2024 12:[address] [facility] Anion Gap 10 3 - 11 LAB CHEMISTRY METHOD 06/06/2024 12:[address] [facility] Glucose 146(H) 70 - 100 mg/dL LAB CHEMISTRY METHOD 06/06/2024 12:[address] [facility] BUN 20 5 - 25 mg/dL LAB CHEMISTRY METHOD 06/06/2024 12:[address] [facility] Creatinine 1.50(H) 0.70 - 1.30 mg/dL LAB CHEMISTRY METHOD 06/06/2024 12:[address] [facility] eGFR 53(L) >=60 mL/min/1. 73m2 LAB CHEMISTRY METHOD 06/06/2024 12:[address] [facility] Comment:Calculation based on the Chronic Kidney Disease Epidemiology Collaboration (CKD-EPI) equation refit without adjustment for race. BUN/Creatinine Ratio 13.3 LAB CHEMISTRY METHOD 06/06/2024 12:[address] [facility] Calcium 9.4 8.5 - 10.5 mg/dL LAB CHEMISTRY METHOD 06/06/2024 12:[address] [facility] AST (SGOT) 16 10 - 42 unit/L LAB CHEMISTRY METHOD 06/06/2024 12:[address] [facility] ALT (SGPT) 15 10 - 60 unit/L LAB CHEMISTRY METHOD 06/06/2024 12:[address] [facility] Alkaline Phosphatase 83 42 - 121 unit/L LAB CHEMISTRY METHOD 06/06/2024 12:[address] [facility] Total Protein 7.1 6.0 - 8.0 g/dL LAB CHEMISTRY METHOD 06/06/2024 12:[address] [facility] Albumin 3.3 3.2 - 5.0 g/dL LAB CHEMISTRY METHOD 06/06/2024 12:[address] [facility] Total Bilirubin 0.4 0.0 - 1.4 mg/dL LAB CHEMISTRY METHOD 06/06/2024 12:[address] [facility] Blood Venous blood specimen / Unknown Venipuncture / Unknown 06/06/2024 7:22 AM EDT 06/06/2024 9:08 AM EDT us Krishan Sotelo MD LAB BLOOD ORDERABLES Final Resul t [facility] [address] [place] [address], [place] [phone] documented in this encounter Visit Diagnoses Diagnosis Essential (primary) hypertension Unspecified essential hypertension Type 2 diabetes mellitus without complications (CMS/[facility] V24, CMS/[facility] V28) Metabolic encephalopathy Alcohol use, unspecified with withdrawal delirium (CMS/[facility] V24, CMS/[facility] V28) documented in this encounter Care Teams Golf Starter And Ranger Relationship Specialty Start Date End Date Rita Fierro MD [address] [place] [address] PCP - General Internal Medicine 08/02/16 documented as of this encounter
--- OUTSIDE RECORDS SUMMARY | 2025-01-04 10:25 | XMS_ITS | Encounter Summary ---
Author Organization [facility] Address [address] [place] [address] Care Team Providers Care Health Information Provider Name Role Phone Rita Fierro MD Primary Care Provide r Encounter Details Date Type Department Care Team Description 02/21/2022 Social Work [facility] Oncology Services [address] [place] [address] Ramon Hoskins, [facility] Social History Tobacco [...] on filedocumented in this encounter Care Teams Health Information Provider Relationship Specialty Start Date End Date Rita Fierro MD [address] [place] [id number] PCP - General Internal Medicine 08/02/16 documented as of this encounter
== END 2025-01-04 08:58 | disposition home or self-care (01) ==
LOC: HO.LNP 08:57
PROVIDERS: PCP Nurse Practitioner Family; Visit Provider Student in an Organized Health Care Education/Training Program
DX: E11.621 Type 2 diabetes mellitus with foot ulcer (principal); L97.526 Non-pressure chronic ulcer of other part of left foot with bone involvement without evidence of necrosis; M86.8X7 Other osteomyelitis, ankle and foot; Z79.2 Long term (current) use of antibiotics
CPT/HCPCS: 87070; 87077; 87147; 87186; 87205; 97597; 99202

== ENCOUNTER 2025-01-04 08:57 | Outpatient (AMB) | payer MEDICARE, MEDICAID, SELFPAY ==
--- NOTE | 2025-01-04 09:04 | MHC.OFFVIS ---
Vital Signs 01/04/25 09:05 Height 5 ft 11 in Weight 216 lb BMI 30.1 Intake Visit Reasons: Left plantar ulceration a proximally 2 cm in diame Intake Note: Romaine is a 59 year old male who presents today as a new patient for an evaluation of his left foot plantar ulcer. Patient reports the ulcer has been going on for about 1 year. He has seen pus coming from the ulcer for about two weeks and he reports he has started taking antibiotics while he was seen at the ED. Allergies No Known Allergies Allergy (Verified 01/04/25 09:07) HPI Comments Details: The patient is a 59 year old individual with a past medical history as seen below presenting for evaluation of a chronic, non-healing left foot wound. The ulcer has been present for over a year and is currently very sore with active drainage. The patient feels the wound has gotten deeper and more painful within the last two weeks. Patient states he has been doing at-home dressing changes. Patient states he was previously hospitalized for this condition and received antibiotics in the hospital. Patient just recently picked of the medication and started taking the Keflex yesterday. Patient states he noticed purulence the past 2 weeks. Patient has a history of diabetes and his blood glucose is approximately 150 mg/dL but he noted a recent reading of 225 the prior night. The patient reports occasional numbness in the feet. He denies any other pedal concerns. He denies any current nausea, vomiting, fever, or chills. [facility] Medical History (Updated 01/09/25 @ 13:43 by Yeny Prabhakar DPM) Diabetic ulcer of left foot Foot osteomyelitis, left Foot ulcer, left History of osteomyelitis Spinal stenosis Hydrocele Hx of gout Umbilical hernia Diverticular disease History of MRSA infection of lungs History of alcohol withdrawal delirium Anxiety with depression Critical illness myopathy Nasal septal defect ETOH abuse Throat cancer Surgical History History of surgery on lower extremity H/O excision of mass Family History Father No problems noted. Mother No problems noted. Social History Household Members: None Housing: House Do you presently have visiting nurse or other home services: Yes Alcohol intake: current Alcohol intake frequency: 3 or more drinks per day Alcohol type: beer Comment: 1:1 sitter Patient Tobacco Use Status: Current everyday Tobacco user Tobacco use type: Cigarette Cigarettes Per Day: 10 e-Cigarette/Vaping Use: Never Used Second Hand Smoke Exposure: No Advance Directives Date on File: 06/06/24 service: No Current occupational status: retired Current occupational exposures/hazards: No Cognitive needs: No Hearing needs: No Vision needs: No Review of Systems Const Details: - Lower Extremities: Reports left 2nd toe ulcer. - Neurological: Reports occasional numbness in the feet. - Endocrine: Reports blood sugar averages around 150, with a recent high of 225. - Respiratory: Reports a history of pneumonia requiring hospitalization last year. All systems reviewed & are unremarkable except as noted in HPI and below Physical Exam Vital Signs: BMI result Body Mass Index 30.1 Extrem Other: Left lower extremity focused physical exam: Derm: Ulcer noted to the distal tip of the 2nd toe measuring approximately 0.5 x 0.5 x 3 cm. Also noted to have a fibrogranular wound bed with undermining and tunneling and probing to bone. No active purulence noted, but there is active serosanguineous drainage. No erythema noted. Edema noted to the 2nd toe. No maceration noted. Vascular: DP/PT pulses palpable. Capillary refill time less than 3 seconds. Temperature gradient warm to warm and pedal hair absent. Minimal varicosities noted. Neuro: Protective sensation is grossly intact to light touch. MSK: Pain on palpation to the ulcerative site noted to the 2nd toe. No crepitus or fluctuance noted. Range of motion of the forefoot within normal limits except reduced to the 2nd toe. Range of motion of the hindfoot and ankle within normal limits. Mildly antalgic gait unassisted noted. Office Procedures AMB Debridement/Avulsion Podia Details: Cleansed ulcerative site to the left 2nd toe with sterile saline. Debrided the ulcerative site with a curette until a healthy granular wound bed was noted. Obtained a wound culture to be sent for microbiology. Applied Betadine to the periwound area and bacitracin to the ulcerative site with 2 x 2 gauze and Disha. 15547-Dqbsmviczuz of active wound <20cm Procedure code (CPT) selection complete Office Meds Triple Antibiotic 3.5 mg-400 unit-5,000 unit topical ointment packet Performing Provider: Yeny Prabhakar DPM [place] [facility] Administered by: Yeny Prabhakar DPM on 01/09/25 13:33 Dose Route Admin Location Dispensed Lot Number Expiration Date [facility] [employer] Purification 1 appl topical 1 appl [id number] LAURENT Comments: Bacitracin used instead Results Reviewed Results Reviewed: Laboratory Tests 11/25/24 12/29/24 12/29/24 10:06 12:02 15:43 WBC 9.5 Random Glucose 112 Hgb A1c (Clinic) 7.9 H Obtained left foot wound culture to be sent for microbiology. Ordered left foot MRI to rule out OM. Podiatry read of Bilateral foot x-rays (12/29/2024): Right - Significant HAV noted and hammertoes 2-5. Arthritic changes noted to the forefoot. No acute fractures or dislocations noted. No soft tissue emphysema noted. Left - Significant HAV noted and hammertoes 2-5. Arthritic changes noted to the forefoot. No acute fractures or dislocations noted. No soft tissue emphysema noted. 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 Bilateral foot x-rays (12/29/2024): Right - FINDINGS: There is no fracture, dislocation, or suspicious bone lesion. There is moderate hallux valgus with mild degenerative arthritis at the first MTP joint. There are hammertoe deformities. There is no focal osteopenia or region of permeative bone change or periostitis to suggest radiographic changes of osteomyelitis. Soft tissues appear radiographically unremarkable without subcutaneous emphysema. IMPRESSION: 1. No acute bony abnormalities. No radiographic evidence of osteomyelitis. 2. Moderate hallux valgus. Left - FINDINGS: No fracture, dislocation, or suspicious bone lesion. There is moderate hallux valgus with bunion formation involving median eminence of the first metatarsal head. There are mild degenerative changes at the first MTP joint. There are hammertoe deformities. There is a healed fracture involving the distal third metatarsal. There is no focal osteopenia or region of permeative bony change or periostitis to suggest radiographic changes of osteomyelitis. Soft tissues appear radiographically unremarkable without subcutaneous emphysema. IMPRESSION: 1. No acute bony abnormalities. No radiographic evidence of osteomyelitis. 2. Moderate hallux valgus with bunion formation. Podiatry read of Left foot CT scan (12/29/2024): Left 2nd toe ulcer. Significant HAV noted and hammertoes 2-5. Arthritic changes noted to the forefoot. No acute fractures or dislocations noted. No soft tissue emphysema noted. 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 Left foot CT scan (12/29/2024): FINDINGS: There is hallux valgus deformity across the first metatarsophalangeal joint. There is degenerative sclerosis and cystic change in the first metatarsal head. There are also marginal osteophytes involving the first MTP joint and first metatarsal head articulation with sesamoids. There is a healed fracture involving the neck region of the third metatarsal. Degenerative cystic changes are present involving the medial side of the intermediate cuneiform. There are no marginal osteophytes involving the dorsal midfoot. The talar dome is intact. There is a metal BB placed on the surface of the skin plantar to the base of the second digit. No bony erosions are evident here. There is soft tissue ulceration 15 mm diameter. It does not clearly extend to the bone. Extends through subcutaneous soft tissues to within 4 mm of the second metatarsal head. There is likely a second more superficial area of ulceration just medial to the aforementioned There is edema in the adjacent soft tissues. Additionally, there is generalized subcutaneous soft tissue edema throughout the foot. There is moderate fatty replacement of foot musculature. Achilles tendon and plantar fascial grossly intact. Medial, peroneal, and anterior ankle tendons are intact. Syndesmotic ligaments are grossly intact. Talofibular and calcaneofibular ligaments are grossly intact. IMPRESSION: There is a 15 mm soft tissue ulceration plantar to the second metatarsal head and likely a second more superficial ulceration just lateral to the aforementioned. There is no visible erosion in the adjacent bone. There is generalized edema and/or cellulitis. 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 Assessment & Plan Assessment & Plan (1) Foot ulcer, left: Code(s): L97.529 - Non-pressure chronic ulcer of other part of left foot with unspecified severity Category: Medical Qualifiers: Non-pressure ulcer stage: with bone involvement without evidence of necrosis Qualified Code(s): L97.526 - Non-pressure chronic ulcer of other part of left foot with bone involvement without evidence of necrosis (2) Foot osteomyelitis, left: Code(s): M86.9 - Osteomyelitis, unspecified Category: Medical (3) Diabetic ulcer of left foot: Code(s): E11.621 - Type 2 diabetes mellitus with foot ulcer; L97.529 - Non-pressure chronic ulcer of other part of left foot with unspecified severity Category: Medical Qualifiers: Diabetic foot ulcer location: toe Diabetes mellitus type: type 2 Non-pressure ulcer stage: with bone involvement without evidence of necrosis Qualified Code(s): E11.621 - Type 2 diabetes mellitus with foot ulcer; L97.526 - Non-pressure chronic ulcer of other part of left foot with bone involvement without evidence of necrosis (4) Diabetic ulcer of left foot associated with diabetes mellitus due to underlying condition: Code(s): E08.621 - Diabetes mellitus due to underlying condition with foot ulcer; L97.529 - Non-pressure chronic ulcer of other part of left foot with unspecified severity Category: Medical Qualifiers: Diabetic foot ulcer location: unspecified part of foot Non-pressure ulcer stage: unspecified non-pressure ulcer stage Qualified Code(s): E08.621 - Diabetes mellitus due to underlying condition with foot ulcer; L97.529 - Non-pressure chronic ulcer of other part of left foot with unspecified severity Plan Patient was informed and verbally consented to the use of an ambient scribe for clinic note documentation during this visit. I discussed with the patient my concern for a potential bone infection (osteomyelitis) underlying the chronic foot wound. I explained that while the recent CT scan showed an ulcer, an MRI is a better imaging study to evaluate for bone involvement for osteomyelitis. I strongly recommended surgical intervention to debride the wound and obtain a bone biopsy or amputation pending MRI results. We discussed that if the bone is infected, treatment would likely involve a course of IV antibiotics pendind consultation with infectious disease specialists. I instructed the patient to continue taking the prescribed oral antibiotics and to return to the clinic next week. - Debrided ulcer and applied dressing to left foot. - Obtained a wound culture. - Ordered a left foot MRI. - Surgical intervention is recommended pending MRI results (debrided and bone biops vs. amp). - The patient will continue the course of oral Cephalexin (Keflex) and should complete the entire prescription. RTC in 1 week. Orders: Orders Routine Culture w Gram Stain 01/04/25 E11.621 - Type 2 diabetes mellitus with foot ulcer, L97.529 - Non-pressure chronic ulcer of other part of left foot with unspecified severity, M86.9 - Osteomyelitis, unspecified AMB Debridement/Avulsion Podiatry 01/04/25 E08.621 - Diabetes mellitus due to underlying condition with foot ulcer, E11.621 - Type 2 diabetes mellitus with foot ulcer, L97.529 - Non-pressure chronic ulcer of other part of left foot with unspecified severity, M86.9 - Osteomyelitis, unspecified MR foot LT wo con 01/04/25 E11.621 - Type 2 diabetes mellitus with foot ulcer, L97.529 - Non-pressure chronic ulcer of other part of left foot with unspecified severity, M86.9 - Osteomyelitis, unspecified Coding Level of Care Code New Pt Level 4 (62656) Diagnoses Ulcer of left foot with bone involvement without evidence of necrosis L97.526 Non-pressure ulcer stage: with bone involvement without evidence of necrosis Foot osteomyelitis, left M86.9 Diabetic ulcer of toe of left foot associated with type 2 diabetes mellitus, with bone involvement without evidence of necrosis E11.621; L97.526 Diabetic foot ulcer location: toe Diabetes mellitus type: type 2 Non-pressure ulcer stage: with bone involvement without evidence of necrosis Diabetic ulcer of left foot associated with diabetes mellitus due to underlying condition, unspecified part of foot, unspecified ulcer stage E08.621; L97.529 Diabetic foot ulcer location: unspecified part of foot Non-pressure ulcer stage: unspecified non-pressure ulcer stage CPT Codes Skin Debridement - CPT: 25969-Tysbcrwhgak of active wound <20cm ([id number]) Time Spent (min) 55 Comment 10 mins for procedure
[2025-01-04 09:05] VITALS: BMI 30.1
--- OUTSIDE RECORDS SUMMARY | 2025-01-04 09:31 | XMS_ITS | Data Portability ---
Author Organization [employer] [facility], [employer] [facility] Address [address] [place] [address] Care Team Providers Care Bottom Sander Name Role Phone [facility] Referring Provider [phone] Assessment Encounter Date Assessment Date Assessment LastModified [...] a four hour ED wait time. VSS. Deputy Clerk Of Superior [address] on site reports that he has tense [...] come and go. Upon presentation with the oracle applications developer he was found to have an O2 [...] Assessment and Plan as documented by the Deputy Clerk Of Superior Court. I provided real-time medical direction via phone [...] flu (A+B) 2022 023 [email or web address] Main - [facility], [address] [place] [address], [phone] 17:54:47 rapid SARS CoV 2 Ag, QL IA, respiratory specimen 2022 023 [email or web address] [facility], [address] [place] [address], [phone] 3 17:54:47 Referral None recorded. Procedures None recorded. Surgeries None recorded. Imaging None recorded. Medication Orders furosemide 20 mg tablet 2022 023 [id number], [address] [place], [phone], 3 15:12:40 Patient TargetsNo targets recorded. Patient InstructionsNo instructions recorded. Reason for Referral None Reported. Results Created Date Observation Date Name Description Value Unit Range Abnormal Flag Note LastModifiedBy Organization Detail LastModifiedTime 02/25/1902/25/2022 rapid SARS CoV 2 Ag, QL IA, respi rator y speci men rapid SARS CoV 2 Ag, QL IA, respiratory specimen negati ve Not Available [facility] [address] [place] [address], [phone] 02/25/2022 13:55:18 02/25/19 23 02/25/2022 rapid flu (A+B) Flu negati ve Not Available [facility] [address] [place] [address], [phone] 02/25/2022 13:55:16 Result Notes None recorded. Medical [...] Details Last Updated DateTime 3 98.1 [degF] 726354. 16 g 16 /min 93 % 86 /min 86 /min 16 /min 98.1 [degF] 93 % 559773. 16 g 139/87 mm[Hg] 139/87 mm[Hg] Not Available [email or web address] - production 3 15:31:07 Date Recorded Body weight Respiratory rate Oxygen saturation Body temperature Heart rate Body temperature Heart rate Body weight Respiratory rate Oxygen saturation Systolic And Diastolic Systolic And Diastolic Provider Name and Address Organization Details Last Updated DateTime 3 495947. 08 g 14 /min 96 % 97.5 [degF] 75 /min 97.5 [degF] 75 /min 365553. 08 g 14 /min 96 % 141/78 mm[Hg] 141/78 mm[Hg] Not Available [email or web address] - production 3 17:28:39 Date Recorded Body temperature Heart rate Oxygen saturation Respiratory rate Heart rate Body temperature Oxygen saturation Respiratory rate Systolic And Diastolic Systolic And Diastolic Provider Name and Address Organization Details Last Updated DateTime 2 99.1 [degF] 98 /min 96 % 18 /min 98 /min 99.1 [degF] 96 % 18 /min 155/77 mm[Hg] 155/77 mm[Hg] Not Available [email or web address] - [employer] 2 14:34:47 Date Recorded Respiratory rate Heart rate Oxygen saturation Systolic And Diastolic Provider Name and Address Organization Details Last Updated DateTime 12/12/2021 18 /min 86 /min 95 % 129/58 mm[Hg] Not Available [email or web address] 2 18:28:42 Social History None recorded. Functional Status None recorded. Mental Status None recorded. Family History Nothing Reported. Medical History No medical history recorded. Past Encounters Encounter ID Performer Location Encounter Start Date Encounter Closed Date Diagnosis/Indication Diagnosis SNOMED-CT Code Diagnosis ICD10 Code Diagnosis IMO Codes Diagnosis Note [id number] Nathaniel Mcconnell MD [facility] - [facility] [address] [place] [phone] 08/06/2021 17:15:40 10/15/2021 12:14:09 Altered mental status 316920863 R41.82 [id number] Lisa Dickson MD Main - [facility] [address] [place], [place] [phone] 11/08/2021 13:18:37 11/08/2021 15:39:12 [id number] Kristy Mosley MD Main - [facility] [address] [place], [place] [phone] 12/12/2021 18:28:35 12/13/2021 14:59:56 Congestive heart failure 98129812 I50.9 56y M with CHF and chronic [...] [id number] Sienna Alatorre MD [facility] - [facility] [address] [place] [address] 0 02/25/2022 13:53:52 03/04/2022 15:28:58 Hypoxia 291950164 R09.02 Congestive heart failure 94114818 I50.9 [id number] Nathaniel Mcconnell MD Main - [facility] [address] [place] [address] 0 04/23/2022 15:08:35 04/25/2022 10:49:48 Swelling of bilateral lower limbs 641661775 M79.89 [id number] Kristy Mosley MD Main - [facility] [address] [place], [place] [phone] 06/25/2022 17:15:30 06/26/2022 10:04:11 Dizziness 566518124 R42 As noted, we were called to see this patient regarding concerns of dizziness. Evaluation in the field was performed by my oracle applications developer colleague, as noted above, I provided real-time [...] Holm Member ID Guarantor Name 03/29/2024 1 [facility] - DOS PRIOR TO 2022 - DUAL ELIGIBLE (MEDICARE REPLACEMENT/ADV ANTAGE - HMO) Romaine Longoria [id number] Romaine Longoria 03/29/2024 1 [facility] - DOS ON OR AFTER 2022 - DUAL ELIGIBLE - RESIDENTIAL OPTIONS AND ONE CARE (MEDICARE REPLACEMENT/ADV ANTAGE - HMO) Romaine Longoria [id number] Romaine Longoria Notes Date Note Type Note [...] .................... .................... .................... .................... .................... .................... . Deputy Clerk Of Superior Court Note: Sent to evaluate pt with poly [...] resolves with rest. Pt denies hx of RI/CHF. Pt states urinary incontinence mentioned in intake note is chronic since prostate CA surgery and denies dysuria. Performed 12 lead and uploaded images to [employer]. Consulted [facility] who ordered POC CMP and then 20mg [...] Lisa Dickson MD [address], [place], [phone], [employer] 11/08/2021 15:39:10 12/12/2021 text/html HPI: Member discharged from [facility] on 11/22/21 for CHF exacerbation, started on HCTZ-Lisinopril. member reports was put on 1500mL fluid restriction. Member hasnt been drinking fluids and reports feeling dehydrated, throat dry mouth, tired and sleepy. BP taken twice 96/64, 102/72. Member will need evaluation .................... .................... .................... .................... .................... .................... .................... . CRC Nursing Assessment: Comments: CRC RN DID NOT NEED FURTHER INFO [facility] HPI: recent admission to hospital for CHF [...] Kristy Mosley MD [address], [place], [phone], [employer] 12/12/2021 18:46:47 02/25/2022 text/html HPI: Romaine is [...] .................... .................... .................... .................... .................... .................... . Deputy Clerk Of Superior Court Note: Sent to evaluate pt with several [...] covid and rapid flu both negative. Consulted [facility] who agreed with this assessment that pt would benefit from further eval/imaging at ER. Placed 20g in L hand and activated EMS. Pt care transferred to [facility] and pt to be transported to [facility] ER. .................... .................... .................... .................... .................... .................... .................... . Disposition: Fulfilled Sienna Alatorre MD [address] [facility],[address], [place], [phone], [employer] 10/28/2022 17:55:02 04/23/2022 text/html HPI: 56 y/o with reports of 1 week of increased LE swelling, erythema, warmth, abrasions, fatigue. R/o LE cellulitis. .................... .................... .................... .................... .................... .................... .................... . CRC Nursing Assessment: Comments: Reviewed - Ryder CABALLERO .................... .................... .................... .................... .................... .................... .................... . Deputy Clerk Of Superior Court Note From Jerome Walls: [employer] to the [...] 241, POC labs obtained and sent to [facility]. pt denied recent falls / trauma , pt legs knees to angles swollen bi - lateral, right leg was red, neither was warm to touch or open wounds or weeping. (+/=) CSMS and pulses, [facility] contacted and ordered 40mg Lasix SIVP the pt was given a prescription to get him to his PCP appointment next week, supportive care and when to call 911 discussed. (- ) adverse on to medication administration .................... .................... .................... .................... .................... .................... .................... . Disposition: Fulfilled Nathaniel Mcconnell MD [address] [place] [address],[address], [place], [phone], [employer] 07/24/2022 14:52:33 06/25/2022 text/html HPI: Romaine is a 56 y/o male, seen for VV today by LABOR MEDIATOR. Romaine reports earlier in the day he [...] no further information needed to process visit [facility] HPI: recurrent dizziness for past year. established w pcp. checked sugar only after eating. cbg 215. normal is 150-250 for him. no chest pain, shortness of breath. feeling better now. feels like one of his normal episdoes............ .................... .................... .................... .................... .................... .................... .......... Deputy Clerk Of Superior Court Note From Edis Colon: Pt complains of [...] . POC BGL 215mg/dI and pt afebrile. [facility] contacted who agreed that pts episode likely attributed to his diabetes and instructed pt to follow up with PCP Pt educated on S/SX that would indicate 911/ED visit and it was suggested that pt keep log of these episodes and what his BGL is during each. .................... .................... .................... .................... .................... .................... .................... . Disposition: Fulfilled Kristy Mosley MD [address] [place] [address],[address], [place], [phone], [employer] 06/25/2022 17:32:07
== END 2025-01-04 09:21 | disposition home or self-care (01) ==
LOC: HO.HPODS 08:57
PROVIDERS: PCP Nurse Practitioner Family; Visit Provider Student in an Organized Health Care Education/Training Program
DX: E11.621 Type 2 diabetes mellitus with foot ulcer (principal); L97.526 Non-pressure chronic ulcer of other part of left foot with bone involvement without evidence of necrosis; M86.9 Osteomyelitis, unspecified; L97.529 Non-pressure chronic ulcer of other part of left foot with unspecified severity
CPT/HCPCS: 97597; 99204

== ENCOUNTER 2025-01-17 14:57 | Outpatient (REF) | payer MEDICARE, MEDICAID, SELFPAY ==
--- NOTE | ~2025-01-17 | MR_ITS ---
EXAM: MR Foot Lt Wo/w Con TECHNIQUE: Multiplanar multisequence MR imaging was performed through the left foot without and with IV contrast. Contrast: 10 mL Gadavist. INDICATION: Soft tissue ulceration over the toes, pain, numbness since December 2024 PRIOR: This CT December 29, 2024 FINDINGS: Lisfranc ligament: The main ligament is heterogeneous with areas of increased signal and thickening. Soft tissues: There is 2 cm soft tissue ulceration plantar to the second metatarsal head extending toward the third that demonstrates hyperenhancement. There is no loculated fluid collection. There is edema in the deep and dorsal soft tissues. There is mild hyperenhancement of the musculature. Metatarsophalangeal (MTP) joint and sesamoids of the great toe: There is hallux valgus deformity with moderate degenerative change. Plantar plate complex is grossly intact. Joint capsule structures are intact. Lesser MTP joints & Plantar plates: Second MTP joint demonstrates a joint effusion. Plantar plate complexes are intact. There is dorsiflexion at the MTP joints and plantar flexion at the PIP joints consistent with hammertoe deformity. There are postsurgical changes dorsal to the third MCP joint likely metal artifact and postsurgical changes in the distal diaphysis of the metatarsal. Bones/Marrow: There is very subtle decreased signal on T1 imaging in the plantar aspect of the second metatarsal head with subtle increased signal on fluid sensitive sequences and minimal enhancement. There are surgical changes in the distal diaphysis and neck of the third metatarsal, possibly from the prior osteotomy. There is micrometal artifact in the dorsal soft tissues. There is subtle decreased T1 and increased signal on fluid sensitive sequences in the third metatarsal head with concordant mild enhancement. Moderate marrow signal changes and degenerative cystic changes noted in the intermediate cuneiform. MR/MR foot LT wo/w con IMPRESSION: There is skin ulceration plantar to the second MTP joint extending laterally. There are subtle marrow signal changes with minimal enhancement. Changes are probably reactive in nature, though an early osteomyelitis is not entirely ruled out in the plantar second metatarsal head. Additionally, there is a joint effusion that is felt to be reactive rather than related to septic arthritis since there are no visible erosions or marrow signal changes in the periarticular bone. Hammertoe deformity second through fifth digits. Midfoot and forefoot musculature demonstrates moderate severe fatty replacement with edema that enhances raising question of cellulitis. The superficial soft tissues demonstrate edema in the dorsal midfoot and forefoot without enhancement most consistent with a bland edema. Hallux valgus deformity with severe degenerative change of the first MTP joint. There are postsurgical changes involving the distal diaphysis and neck of the third metatarsal and adjacent dorsal soft tissues. Electronically signed by: Bear Butler MD 01/17/2025 04:16 PM EST
--- OUTSIDE RECORDS SUMMARY | 2025-01-17 21:18 | XMS_ITS | Clinical Summary ---
Author Organization [employer] Address [address] [facility] [address] [place] [address] Care Team Providers Care Laborer Landscape Name Role Phone Unavailable Primary Care Provider [...] age [place] [id number] [facility] MEDICARE ADVANTAGE
--- OUTSIDE RECORDS SUMMARY | 2025-01-17 21:18 | XMS_ITS | Encounter Summary ---
Author Organization [facility] Address [address] [place] [address] Care Team Providers Care Belt Turner Name Role Phone Rita Fierro MD Primary Care Provide r Encounter Details Date Type Department Care Team (Late st Contact Info) Description 06/08/2024 Lab Requisition [facility] - Main Lab [address] [facility] [place] [address] Krishan Sotelo MD [address] [place] [address] [address] [place], [phone] Type 2 diabetes mellitus without complications [...] METHOD 06/08/2024 12:47 PM EDT [facility] Mean Bld Glu Estim. 157 mg/dL LAB CHEMISTRY METHOD 06/08/2024 12:47 PM EDT [facility] Blood Venous blood specimen / Unknown Venipuncture / Unknown 06/08/2024 7:34 AM EDT 06/08/2024 10:04 AM EDT us Krishan Sotelo MD LAB BLOOD ORDERABLES Final Resul t [facility] [address] [place] [address], documented in this encounter Visit Diagnoses Diagnosis Type 2 diabetes mellitus without complications (CMS/HCC V24, CMS/HCC V28) documented in this encounter Care Teams Belt Turner Relationship Specialty Start Date End Date Rita Fierro MD [address] [place] [address] [place] PCP - General Internal Medicine 08/02/16 documented as of this encounter
--- OUTSIDE RECORDS SUMMARY | 2025-01-17 21:18 | XMS_ITS | Clinical Summary ---
Author Organization 299 [facility] Address [address] [place] [address] Phone Care Team Providers Care Lead Presser Name Role Phone Rita Fierro MD Primary [...] Type 2 diabetes mellitus without complications ([facility] V24, [facility] V28) COMPREHENSIVE METABOLIC PANEL Routine 06/06/2024 7:22 AM EDT Essential (primary) hypertension Type 2 diabetes mellitus without complications ([facility] V24, [facility] V28) Metabolic encephalopathy Alcohol use, unspecified with withdrawal delirium ([facility] V24, [facility] V28) from Last 3 Months or Most [...] Resul t [facility] [address] [place] [address], * (ABNORMAL) Comprehensive metabolic panel (06/06/2024 7:22 [...] LAB CHEMISTRY METHOD 06/06/2024 12:50 PM EDT [facility] Albumin 3.3 3.2 - 5.0 g/dL LAB CHEMISTRY METHOD 06/06/2024 12:50 PM EDT [facility] Total Bilirubin 0.4 0.0 - 1.4 mg/dL LAB CHEMISTRY METHOD 06/06/2024 12:50 PM EDT [facility] Blood Venous blood specimen / Unknown Venipuncture / Unknown 06/06/2024 7:22 AM EDT 06/06/2024 9:08 AM EDT us Krishan Sotelo MD LAB BLOOD ORDERABLES Final Resul t [facility] ([facility] [address] [place] [address], from Last 3 Months or Most Recently Relevant to Health Maintenance Insurance [employer] MEDICARE MEDICAID - [place] Advance Directives Documents on File Type Date Recorded Patient Humanities Coordinator Expl anation Health Care Decision (hx) 09/27/2018 [...] (hx) 09/27/2018 AD GARCIA DIRECTIVE Care Teams Lead Presser Relationship Specialty Start Date End Date Rita Fierro MD [address] [place] [address] PCP - General Internal Medicine 08/02/16
--- OUTSIDE RECORDS SUMMARY | 2025-01-17 21:18 | XMS_ITS | Data Portability ---
Author Organization [employer] [facility], [place] in[employer] [place] Address [address] [place] [address] Care Team Providers Care Gymnastics Instructor Name Role Phone [facility] Referring Provider Assessment Encounter [...] a four hour ED wait time. VSS. Recreation Therapy Aide on site reports that he has tense [...] come and go. Upon presentation with the remote sensing specialist he was found to have an O2 [...] Assessment and Plan as documented by the Recreation Therapy Aide. I provided real-time medical direction via phone [...] flu (A+B) 2022 023 [email or web address] Main - [facility], [address] [place] [address], [phone] 17:54:47 rapid SARS CoV 2 Ag, QL IA, respiratory specimen 2022 023 [email or web address] [facility] [address] [place] [address], [phone] 3 17:54:47 Referral None recorded. Procedures None recorded. Surgeries None recorded. Imaging None recorded. Medication Orders furosemide 20 mg tablet 2022 023 [id number], [address] [place], [address], 3 15:12:40 Patient TargetsNo targets recorded. Patient InstructionsNo instructions recorded. Reason for Referral None Reported. Results Created Date Observation Date Name Description Value Unit Range Abnormal Flag Note LastModifiedBy Organization Detail LastModifiedTime 02/25/1902/25/2022 rapid SARS CoV 2 Ag, QL IA, respi rator y speci men rapid SARS CoV 2 Ag, QL IA, respiratory specimen negati ve Not Available [facility] [address] [place] [address], [phone] 02/25/2022 13:55:18 02/25/19 23 02/25/2022 rapid flu (A+B) Flu negati ve Not Available [facility] ed [address] [place] [address], [phone] 02/25/2022 13:55:16 Result Notes None recorded. Medical [...] Details Last Updated DateTime 3 98.1 [degF] 955960. 16 g 16 /min 93 % 86 /min 86 /min 16 /min 98.1 [degF] 93 % 651812. 16 g 139/87 mm[Hg] 139/87 mm[Hg] Not Available [employer] - production 3 15:31:07 Date Recorded Body weight Respiratory rate Oxygen saturation Body temperature Heart rate Body temperature Heart rate Body weight Respiratory rate Oxygen saturation Systolic And Diastolic Systolic And Diastolic Provider Name and Address Organization Details Last Updated DateTime 3 724431. 08 g 14 /min 96 % 97.5 [degF] 75 /min 97.5 [degF] 75 /min 798897. 08 g 14 /min 96 % 141/78 mm[Hg] 141/78 mm[Hg] Not Available [employer] - production 3 17:28:39 Date Recorded Body temperature Heart rate Oxygen saturation Respiratory rate Heart rate Body temperature Oxygen saturation Respiratory rate Systolic And Diastolic Systolic And Diastolic Provider Name and Address Organization Details Last Updated DateTime 2 99.1 [degF] 98 /min 96 % 18 /min 98 /min 99.1 [degF] 96 % 18 /min 155/77 mm[Hg] 155/77 mm[Hg] Not Available [employer] 2 14:34:47 Date Recorded Respiratory rate Heart rate Oxygen saturation Systolic And Diastolic Provider Name and Address Organization Details Last Updated DateTime 12/12/2021 18 /min 86 /min 95 % 129/58 mm[Hg] Not Available [employer] 2 18:28:42 Social History None recorded. Functional Status None recorded. Mental Status None recorded. Family History Nothing Reported. Medical History No medical history recorded. Past Encounters Encounter ID Performer Location Encounter Start Date Encounter Closed Date Diagnosis/Indication Diagnosis SNOMED-CT Code Diagnosis ICD10 Code Diagnosis IMO Codes Diagnosis Note [id number] Nathaniel Mcconnell MD Main - [facility] [address] [place] [phone] 08/06/2021 17:15:40 10/15/2021 12:14:09 Altered mental status 868442267 R41.82 [id number] Lisa Dickson MD Main - [facility] [address] [place], [place] [id number] 11/08/2021 13:18:37 11/08/2021 15:39:12 [id number] Kristy Mosley MD Main - [facility] [address] [place], [place] [phone] 12/12/2021 18:28:35 12/13/2021 14:59:56 Congestive heart failure 46301077 I50.9 56y M with CHF and chronic [...] [id number] Sienna Alatorre MD Main - [facility] [address] [place] [address] 0 02/25/2022 13:53:52 03/04/2022 15:28:58 Hypoxia 605907371 R09.02 Congestive heart failure 58647364 I50.9 [id number] Nathaniel Mcconnell MD Main - [facility] [address] [place] [address] 0 04/23/2022 15:08:35 04/25/2022 10:49:48 Swelling of bilateral lower limbs 215408642 M79.89 [id number] Kristy Mosley MD Main - [facility] [address] [place], [place] [id number] 06/25/2022 17:15:30 06/26/2022 10:04:11 Dizziness 877243943 R42 As noted, we were called to see this patient regarding concerns of dizziness. Evaluation in the field was performed by my remote sensing specialist colleague, as noted above, I provided real-time [...] Holm Member ID Guarantor Name 03/29/2024 1 [facility] - DOS PRIOR TO 2022 - DUAL ELIGIBLE (MEDICARE REPLACEMENT/ADV ANTAGE - HMO) Romaine Longoria [id number] Romaine Longoria 03/29/2024 1 [facility] - DOS ON OR AFTER 2022 - DUAL ELIGIBLE - NURSING HOME OPTIONS AND ONE CARE (MEDICARE REPLACEMENT/ADV ANTAGE - HMO) Romaine Longoria [id number] Romaine Longoria Notes Date Note Type Note [...] .................... .................... .................... .................... .................... .................... . Recreation Therapy Aide Note: Sent to evaluate pt with poly [...] resolves with rest. Pt denies hx of MA/CHF. Pt states urinary incontinence mentioned in intake note is chronic since prostate CA surgery and denies dysuria. Performed 12 lead and uploaded images to [employer]. Consulted [facility] who ordered POC CMP and [...] Lisa Dickson MD [address], [place], [phone], [employer] 11/08/2021 15:39:10 12/12/2021 text/html HPI: Member discharged from [facility] on 11/22/21 for CHF exacerbation, started on HCTZ-Lisinopril. member reports was put on 1500mL fluid restriction. Member hasnt been drinking fluids and reports feeling dehydrated, throat dry mouth, tired and sleepy. BP taken twice 96/64, 102/72. Member will need evaluation .................... .................... .................... .................... .................... .................... .................... . CRC Nursing Assessment: Comments: CRC RN DID NOT NEED FURTHER INFO [facility] HPI: recent admission to hospital [...] Kristy Mosley MD [address], [place], [address], [email or web address] 12/12/2021 18:46:47 02/25/2022 text/html HPI: Romaine is [...] .................... .................... .................... .................... .................... .................... . Recreation Therapy Aide Note: Sent to evaluate pt with several [...] covid and rapid flu both negative. Consulted [facility] who agreed with this assessment that pt would benefit from further eval/imaging at ER. Placed 20g in L hand and activated EMS. Pt care transferred to [facility] and pt to be transported to [facility] ER. .................... .................... .................... .................... .................... .................... .................... . Disposition: Fulfilled Sienna Alatorre MD [address] [facility],[address], [place], [address], [email or web address] 10/28/2022 17:55:02 04/23/2022 text/html HPI: 56 y/o with reports of 1 week of increased LE swelling, erythema, warmth, abrasions, fatigue. R/o LE cellulitis. .................... .................... .................... .................... .................... .................... .................... . CRC Nursing Assessment: Comments: Reviewed - Ryder CABALLERO .................... .................... .................... .................... .................... .................... .................... . Recreation Therapy Aide Note From Jerome Walls: [employer] to the [...] 241, POC labs obtained and sent to [facility]. pt denied recent falls / trauma , pt legs knees to angles swollen bi - lateral, right leg was red, neither was warm to touch or open wounds or weeping. (+/=) CSMS and pulses, [facility] contacted and ordered 40mg Lasix SIVP the pt was given a prescription to get him to his PCP appointment next week, supportive care and when to call 911 discussed. (- ) adverse on to medication administration .................... .................... .................... .................... .................... .................... .................... . Disposition: Fulfilled Nathaniel Mcconnell MD [address] [place] [address],[address], [place], [address], [employer] 07/24/2022 14:52:33 06/25/2022 text/html HPI: Romaine is a 56 y/o male, seen for VV today by PAPER COATING MACHINE OPERATOR. Romaine reports earlier in the day [...] no further information needed to process visit [facility] HPI: recurrent dizziness for past year. established w pcp. checked sugar only after eating. cbg 215. normal is 150-250 for him. no chest pain, shortness of breath. feeling better now. feels like one of his normal episdoes............ .................... .................... .................... .................... .................... .................... .......... Recreation Therapy Aide Note From Edis Colon: Pt complains of [...] . POC BGL 215mg/dI and pt afebrile. [facility] contacted who agreed that pts episode likely attributed to his diabetes and instructed pt to follow up with PCP Pt educated on S/SX that would indicate 911/ED visit and it was suggested that pt keep log of these episodes and what his BGL is during each. .................... .................... .................... .................... .................... .................... .................... . Disposition: Fulfilled Kristy Mosley MD [address] [place] [address],[address], [place], [phone], CAROL ANN PELLETIER 06/25/2022 17:32:07
--- OUTSIDE RECORDS SUMMARY | 2025-01-17 21:18 | XMS_ITS | Encounter Summary ---
Author Organization [facility] Address [address] [place] [phone] Care Team Providers Care Well Logger Name Role Phone Rita Fierro MD Primary Care Provide r Encounter Details Date Type Department Care Team (Late st Contact Info) Description 06/06/2024 Lab Requisition [facility] - Main Lab [address] [facility] [place] [address] Krishan Sotelo MD [address] [place] [address] [address] [facility] [phone] Essential (primary) hypertension; Type 2 [...] 2 diabetes mellitus without complications (CMS/HCC V24, [facility] V28) Metabolic encephalopathy Alcohol use, unspecified with withdrawal delirium ([facility] V24, [facility] V28) COMPREHENSIVE METABOLIC PANEL Routine 06/06/2024 7:22 AM EDT Essential (primary) hypertension Type 2 diabetes mellitus without complications ([facility] V24, [facility] V28) Metabolic encephalopathy Alcohol use, unspecified with withdrawal delirium ([facility] V24, [facility] V28) documented in this encounter Results * (ABNORMAL) CBC auto differential (06/06/2024 7:22 AM EDT) [facility] WBC 9.4 4.8 - 10.8 K/mcL LAB [...] LAB HEMETOLOGY METHOD 06/06/2024 10:49 AM EDT [facility] Eosinophils Absolute 0.57(H) 0.00 - 0.50 K/mcL LAB HEMETOLOGY METHOD 06/06/2024 10:49 AM T [facility] Basophils Absolute 0.10 0.00 - 0.20 K/mcL LAB HEMETOLOGY METHOD 06/06/2024 10:49 AM EDT [facility] Immature Granulocytes Absolute 0.11(H) 0.00 - 0.03 K/mcL LAB HEMETOLOGY METHOD 06/06/2024 10:49 AM T [facility] Blood Venous blood specimen / Unknown Venipuncture / Unknown 06/06/2024 7:22 AM EDT 06/06/2024 9:08 AM EDT us Krishan Sotelo MD LAB BLOOD ORDERABLES Final Resul t [facility] [address] [place] [address], [place] [phone] * (ABNORMAL) Comprehensive metabolic panel (06/06/2024 7:22 [...] LAB BLOOD ORDERABLES Final Resul t [facility] ([facility] [address] [place] [address], [place] [phone] documented in this encounter Visit Diagnoses Diagnosis Essential (primary) hypertension Unspecified essential hypertension Type 2 diabetes mellitus without complications (CMS/[facility] V24, CMS/[facility] V28) Metabolic encephalopathy Alcohol use, unspecified with withdrawal delirium (CMS/[facility] V24, CMS/[facility] V28) documented in this encounter Care Teams Well Logger Relationship Specialty Start Date End Date Rita Fierro MD [address] [place] [address] PCP - General Internal Medicine 08/02/16 documented as of this encounter
--- OUTSIDE RECORDS SUMMARY | 2025-01-17 21:18 | XMS_ITS | Encounter Summary ---
Author Organization [facility] Prior to 07/09/[address] [place] [address] Care Team Providers Care Motor Vehicle Light Assembler Name Role Phone Rita Fierro MD Primary Care Provide r Encounter Details Date Type Department Care Team Description 02/21/2022 Social Work [facility] [address] [place] [address] Ramon Hoskins, [facility] Social History Tobacco Use Types Packs/Day [...] on filedocumented in this encounter Care Teams Motor Vehicle Light Assembler Relationship Specialty Start Date End Date Rita Fierro MD [address] [place] [address] PCP - General Internal Medicine 08/02/16 documented as of this encounter
--- OUTSIDE RECORDS SUMMARY | 2025-01-17 21:18 | XMS_ITS | Clinical Summary ---
Author Organization [facility] Prior to 07/09/24 Address [address] [place] [address] Care Team Providers Care Facility Worker Name Role Phone Rita Fierro MD [...] age to complete this topic Care Teams Facility Worker Relationship Specialty Start Date End Date Rita Fierro MD [address] [place] [address] [place] [address] PCP - General Internal Medicine 08/02/16
--- OUTSIDE RECORDS SUMMARY | 2025-01-17 21:18 | XMS_ITS | Clinical Summary ---
Author Organization [facility] Address [address] [place] [address] Phone Care Team Providers Care Cashier Self Service Gasoline Name Role Phone Rita Fierro MD Primary [...] Payer ID:[id number] (NAIC) Group ID:[id number] Type:Medicare [address]: [address] [facility] ONE CARE MEDICARE REPLACEMENT [address] [address] [place] [address] CARE [address]ARE [address] [address] CARE MEDICARE REPLACEMENT [facility] CARE MEDICARE REPLACEMENT [facility] CARE MEDICARE REPLACEMENT [facility] CARE MEDICARE REPLACEMENT [facility] CARE MEDICARE REPLACEMENT [facility] ONE CARE MEDICARE REPLACEMENT JULIET [place] [facility] Advance Directives For more information, please contact: [phone] (9AM - 5PM [facility], Thursday-Thursday) Documents on File Type Date Recorded Patient Cushion Spring Assembler Expl anation Healthcare Proxy 08/27/2015 11:01 AM * Full Code (Presumed) (Latest Code Status on File) Date Activated Date Inactivated Comments 08/22/2015 11:35 AM 08/24/2015 10:39 AM Care Teams Cashier Self Service Gasoline Relationship Specialty Start Date End Date Rita Fierro MD [address] [place] [address] PCP - General Internal Medicine 01/12/15 Additional Source Comments The information contained in this document represents components of the legal health record. It is not the complete legal health record.[facility]
== END 2025-01-17 14:58 | disposition home or self-care (01) ==
LOC: HO.MRI 14:57
PROVIDERS: PCP Nurse Practitioner Family; Visit Provider Student in an Organized Health Care Education/Training Program
DX: L97.526 Non-pressure chronic ulcer of other part of left foot with bone involvement without evidence of necrosis (principal); E11.621 Type 2 diabetes mellitus with foot ulcer; L97.529 Non-pressure chronic ulcer of other part of left foot with unspecified severity; M86.9 Osteomyelitis, unspecified
CPT/HCPCS: 73720; A9585

== ENCOUNTER → 2025-01-17 15:04 | Outpatient (BNV) | payer MEDICARE, MEDICAID, SELFPAY | PROVIDERS: PCP Nurse Practitioner Family; Visit Provider Radiology Diagnostic Radiology | DX: L97.522 Non-pressure chronic ulcer of other part of left foot with fat layer exposed (principal); M20.42 Other hammer toe(s) (acquired), left foot; M20.10 Hallux valgus (acquired), unspecified foot; M19.071 Primary osteoarthritis, right ankle and foot | CPT/HCPCS: 73720 ==

== ENCOUNTER 2025-01-18 10:14 | Outpatient (AMB) | payer MEDICARE, MEDICAID, SELFPAY ==
[2025-01-18 10:26] VITALS: BMI 30.1
--- NOTE | 2025-01-18 10:26 | MHC.OFFVIS ---
Vital Signs 01/18/25 10:26 Height 5 ft 11 in Weight 216 lb BMI 30.1 Intake Visit Reasons: left foot ulcer, MRI results Intake Note: Romaine is a 59 year old male who presents to the office today for a follow up left foot ulcer, MRI results. At last visit pt was instructed to complete course of antibiotics and ulcer was debrided and dressing was applied to left foot. Wound culture results in chart. Pt states everything is going well however he mentions he is currently not feeling well and believes he might be getting sick. He is still experiencing pain where his ulcer is located and he mentions his skin is beginning to peel off Allergies No Known Allergies Allergy (Verified 01/18/25 10:27) HPI Comments Details: The patient is a 59 year old male presenting for follow-up of a painful left foot ulcer and for pre-operative planning. He continues to experience some pain in the affected area. Patient states he has tried to keep the area clean. He denies any new pedal injuries. Denies any purulent drainage. Patient states he completed the course of antibiotics. He reports some discoloration to the ulcerative site. He has been washing the wound, and some skin has since peeled off. [facility], [facility] Medical History (Updated 01/16/25 @ 09:02 by Maya Bullard, [facility]) Diabetic ulcer of left foot Foot osteomyelitis, left Foot ulcer, left History of osteomyelitis Spinal stenosis Hydrocele Hx of gout Umbilical hernia Diverticular disease History of MRSA infection of lungs History of alcohol withdrawal delirium Anxiety with depression Critical illness myopathy Nasal septal defect ETOH abuse Throat cancer Surgical History History of surgery on lower extremity H/O excision of mass Family History Father No problems noted. Mother No problems noted. Social History Household Members: None Housing: House Do you presently have visiting nurse or other home services: Yes Alcohol intake: current Alcohol intake frequency: 3 or more drinks per day Alcohol type: beer Comment: 1:1 sitter Patient Tobacco Use Status: Current everyday Tobacco user Tobacco use type: Cigarette Cigarettes Per Day: 10 e-Cigarette/Vaping Use: Never Used Second Hand Smoke Exposure: No Advance Directives Date on File: 06/06/24 service: No Current occupational status: retired Current occupational exposures/hazards: No Cognitive needs: No Hearing needs: No Vision needs: No Review of Systems Const Details: - Lower Extremities: Reports left submet 2 ulcer with pain. - Neurological: Reports occasional numbness in the feet. - Endocrine: Reports blood sugar averages around 150, with a recent high of 225. - Respiratory: Reports a history of pneumonia requiring hospitalization last year. All systems reviewed & are unremarkable except as noted in HPI and below Physical Exam Exam Exam: Physical Exam - Foot: The wound is located on the plantar aspect of the foot, not the tip of the toe. - The wound appears stable and is without purulent drainage. - Some discoloration is noted around the wound. Vital Signs: BMI result Body Mass Index 30.1 Extrem Other: Left lower extremity focused physical exam: Derm: Ulcer noted to the submet 2 area measuring approximately 0.8 x 0.8 x 0.3 cm. Malodorous. Also noted to have a fibrogranular wound bed with undermining and tunneling and probing to bone. No active purulence, drainage, bleeding noted. Hyperkeratotic area noted to the periwound site. No erythema noted. Edema noted to the 2nd toe and plantar aspect of the forefoot. No maceration noted. Vascular: DP/PT pulses palpable. Capillary refill time less than 3 seconds. Temperature gradient warm to warm and pedal hair absent. Minimal varicosities noted. Neuro: Protective sensation is grossly intact to light touch. MSK: Pain on palpation to the ulcerative site noted to the submet 2 area. No crepitus or fluctuance noted. Range of motion of the forefoot within normal limits except reduced to the 2nd toe. Range of motion of the hindfoot and ankle within normal limits. Mildly antalgic gait unassisted noted. Office Procedures AMB Debridement/Avulsion Podia Details: Cleansed ulcerative site to the left foot submet 2 area with sterile saline. Debrided the ulcerative site with a curette until a healthy granular wound bed was noted. Applied Betadine to the periwound area and bacitracin to the ulcerative site with 2 x 2 gauze and Disha. [id number] of active wound <20cm Procedure code (CPT) selection complete Office Meds Triple Antibiotic 3.5 mg-400 unit-5,000 unit topical ointment packet Performing Provider: Yeny Prabhakar DPM Performing Location: [facility] Administered by: Yeny Prabhakar DPM on 01/23/25 15:15 Dose Route Admin Location Dispensed Lot Number Expiration Date [facility] [employer] 1 appl topical 1 appl [id number] [employer] Comments: Bacitracin used instead povidone-iodine 10 % topical swab Performing Provider: Yeny Prabhakar DPM Performing Location: [facility] Administered by: Yeny Prabhakar DPM on 01/23/25 15:15 Dose Route Admin Location Dispensed Lot Number Expiration Date [facility] [employer] 1 appl topical 1 appl [id number] [employer] [place]. Results Reviewed Results Reviewed: Laboratory Tests 11/25/24 12/29/24 12/29/24 10:06 12:02 15:43 WBC 9.5 Random Glucose 112 Hgb A1c (Clinic) 7.9 H Microbiology 01/04/25 08:57 Foot Left Gram Stain - Final 01/04/25 08:57 Foot Left Routine Culture - Final Strep agalactiae (Grp B) Methicillin Res Staph Aureus Corynebacterium species Podiatry read of left foot MRI (01/17/2025): Ulcerative site noted to the submet 2 area. Reactive changes noted to the 2nd metatarsal head. No soft tissue emphysema noted. Left foot MRI (01/17/25): IMPRESSION: There is skin ulceration plantar to the second MTP joint extending laterally. There are subtle marrow signal changes with minimal enhancement. Changes are probably reactive in nature, though an early osteomyelitis is not entirely ruled out in the plantar second metatarsal head. Additionally, there is a joint effusion that is felt to be reactive rather than related to septic arthritis since there are no visible erosions or marrow signal changes in the periarticular bone. Hammertoe deformity second through fifth digits. Midfoot and forefoot musculature demonstrates moderate severe fatty replacement with edema that enhances raising question of cellulitis. The superficial soft tissues demonstrate edema in the dorsal midfoot and forefoot without enhancement most consistent with a bland edema. Hallux valgus deformity with severe degenerative change of the first MTP joint. There are postsurgical changes involving the distal diaphysis and neck of the third metatarsal and adjacent dorsal soft tissues. Podiatry read of Bilateral foot x-rays (12/29/2024): Right - Significant HAV noted and hammertoes 2-5. Arthritic changes noted to the forefoot. No acute fractures or dislocations noted. No soft tissue emphysema noted. Left - Significant HAV noted and hammertoes 2-5. Arthritic changes noted to the forefoot. No acute fractures or dislocations noted. No soft tissue emphysema noted. 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 Bilateral foot x-rays (12/29/2024): Right - FINDINGS: There is no fracture, dislocation, or suspicious bone lesion. There is moderate hallux valgus with mild degenerative arthritis at the first MTP joint. There are hammertoe deformities. There is no focal osteopenia or region of permeative bone change or periostitis to suggest radiographic changes of osteomyelitis. Soft tissues appear radiographically unremarkable without subcutaneous emphysema. IMPRESSION: 1. No acute bony abnormalities. No radiographic evidence of osteomyelitis. 2. Moderate hallux valgus. Left - FINDINGS: No fracture, dislocation, or suspicious bone lesion. There is moderate hallux valgus with bunion formation involving median eminence of the first metatarsal head. There are mild degenerative changes at the first MTP joint. There are hammertoe deformities. There is a healed fracture involving the distal third metatarsal. There is no focal osteopenia or region of permeative bony change or periostitis to suggest radiographic changes of osteomyelitis. Soft tissues appear radiographically unremarkable without subcutaneous emphysema. IMPRESSION: 1. No acute bony abnormalities. No radiographic evidence of osteomyelitis. 2. Moderate hallux valgus with bunion formation. Podiatry read of Left foot CT scan (12/29/2024): Left 2nd toe ulcer. Significant HAV noted and hammertoes 2-5. Arthritic changes noted to the forefoot. No acute fractures or dislocations noted. No soft tissue emphysema noted. 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 Left foot CT scan (12/29/2024): FINDINGS: There is hallux valgus deformity across the first metatarsophalangeal joint. There is degenerative sclerosis and cystic change in the first metatarsal head. There are also marginal osteophytes involving the first MTP joint and first metatarsal head articulation with sesamoids. There is a healed fracture involving the neck region of the third metatarsal. Degenerative cystic changes are present involving the medial side of the intermediate cuneiform. There are no marginal osteophytes involving the dorsal midfoot. The talar dome is intact. There is a metal BB placed on the surface of the skin plantar to the base of the second digit. No bony erosions are evident here. There is soft tissue ulceration 15 mm diameter. It does not clearly extend to the bone. Extends through subcutaneous soft tissues to within 4 mm of the second metatarsal head. There is likely a second more superficial area of ulceration just medial to the aforementioned There is edema in the adjacent soft tissues. Additionally, there is generalized subcutaneous soft tissue edema throughout the foot. There is moderate fatty replacement of foot musculature. Achilles tendon and plantar fascial grossly intact. Medial, peroneal, and anterior ankle tendons are intact. Syndesmotic ligaments are grossly intact. Talofibular and calcaneofibular ligaments are grossly intact. IMPRESSION: There is a 15 mm soft tissue ulceration plantar to the second metatarsal head and likely a second more superficial ulceration just lateral to the aforementioned. There is no visible erosion in the adjacent bone. There is generalized edema and/or cellulitis. 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 Assessment & Plan Assessment & Plan (1) Foot ulcer, left: Code(s): L97.529 - Non-pressure chronic ulcer of other part of left foot with unspecified severity Category: Medical Qualifiers: Non-pressure ulcer stage: with bone involvement without evidence of necrosis Qualified Code(s): L97.526 - Non-pressure chronic ulcer of other part of left foot with bone involvement without evidence of necrosis (2) Foot osteomyelitis, left: Code(s): M86.9 - Osteomyelitis, unspecified Category: Medical (3) Diabetic ulcer of left foot: Code(s): E11.621 - Type 2 diabetes mellitus with foot ulcer; L97.529 - Non-pressure chronic ulcer of other part of left foot with unspecified severity Category: Medical Qualifiers: Diabetic foot ulcer location: toe Diabetes mellitus type: type 2 Non-pressure ulcer stage: with bone involvement without evidence of necrosis Qualified Code(s): E11.621 - Type 2 diabetes mellitus with foot ulcer; L97.526 - Non-pressure chronic ulcer of other part of left foot with bone involvement without evidence of necrosis (4) Diabetic ulcer of left foot associated with diabetes mellitus due to underlying condition: Code(s): E08.621 - Diabetes mellitus due to underlying condition with foot ulcer; L97.529 - Non-pressure chronic ulcer of other part of left foot with unspecified severity Category: Medical Qualifiers: Diabetic foot ulcer location: unspecified part of foot Non-pressure ulcer stage: unspecified non-pressure ulcer stage Qualified Code(s): E08.621 - Diabetes mellitus due to underlying condition with foot ulcer; L97.529 - Non-pressure chronic ulcer of other part of left foot with unspecified severity Plan Patient was informed and verbally consented to the use of an ambient scribe for clinic note documentation during this visit. I informed the patient that his recent MRI suggests a bone infection (osteomyelitis) in the 2nd metatarsal bone beneath his foot wound. I explained that his wound culture was positive for three bacterias, including MRSA, which is a resistant organism. I reviewed the plan for surgery, scheduled for Jan,. I detailed the procedure. I emphasized that the goal is to remove the infected bone. I stressed the need for a post-operative consultation with Infectious Disease for targeted antibiotic therapy. I provided post-operative instructions, including being non-weight bearing vs. PWB to the heel on the left foot foot and using a surgical shoe, as well as pre-operative instructions to not eat or drink after midnight before the procedure. The patient will follow up in the office one week after surgery. Indications for Surgery The patient presents with a chronic non-healing ulcer of the left foot with clinical, radiographic, and laboratory evidence of osteomyelitis. Findings include persistent open wound, [id number], drainage, and malodor. Imaging demonstrates bone involvement consistent with infection. Conservative measures including wound care, offloading, and oral antibiotic therapy have failed.Surgical intervention is medically necessary for source control, removal of infected tissue and bone, culture acquisition, and prevention of limb- or life-threatening complications. Risks, benefits, and alternatives were discussed and the patient elects to proceed. Planned Procedures 1. Excisional debridement of left foot ulcer 2. Thorough irrigation and washout of left foot ulcer 3. Resection of infected bone 4. Bone biopsy and deep tissue cultures Risks, Benefits, and Alternatives Risks include persistent infection, delayed healing, need for repeat debridement, partial or complete amputation, neurovascular injury, sepsis, DVT/PE, and anesthesia-related complications. Benefits include source control of infection, improved wound healing potential, prevention of further bone destruction and limb loss, and ability to tailor antibiotic therapy based on cultures. Alternatives include continued IV antibiotics and wound care alone, which are insufficient given bone involvement. The patient verbalizes understanding and consents to proceed. Preoperative Instructions NPO after midnight Complete course of oral antibiotics Hold anticoagulation per protocol Postoperative Plan Referral for Infectious Disease management Non-weightbearing vs. PWB to left heel Await bone and tissue culture results RTC 1 week after surgery. Orders: Orders AMB Debridement/Avulsion Podiatry 01/18/25 E08.621 - Diabetes mellitus due to underlying condition with foot ulcer, E11.621 - Type 2 diabetes mellitus with foot ulcer, L97.526 - Non-pressure chronic ulcer of other part of left foot with bone involvement without evidence of necrosis, L97.529 - Non-pressure chronic ulcer of other part of left foot with unspecified severity Referrals Podiatry Procedure Notification E08.621 - Diabetes mellitus due to underlying condition with foot ulcer, E11.621 - Type 2 diabetes mellitus with foot ulcer, E11.9 - Type 2 diabetes mellitus without complications, I83.12 - Varicose veins of left lower extremity with inflammation, L97.526 - Non-pressure chronic ulcer of other part of left foot with bone involvement without evidence of necrosis, L97.529 - Non-pressure chronic ulcer of other part of left foot with unspecified severity, M86.9 - Osteomyelitis, unspecified, 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 Coding Level of Care Code Est Pt Level 4 (30514) Diagnoses Ulcer of left foot with bone involvement without evidence of necrosis L97.526 Non-pressure ulcer stage: with bone involvement without evidence of necrosis Foot osteomyelitis, left M86.9 Diabetic ulcer of toe of left foot associated with type 2 diabetes mellitus, with bone involvement without evidence of necrosis E11.621; L97.526 Diabetic foot ulcer location: toe Diabetes mellitus type: type 2 Non-pressure ulcer stage: with bone involvement without evidence of necrosis Diabetic ulcer of left foot associated with diabetes mellitus due to underlying condition, unspecified part of foot, unspecified ulcer stage E08.621; L97.529 Diabetic foot ulcer location: unspecified part of foot Non-pressure ulcer stage: unspecified non-pressure ulcer stage CPT Codes Skin Debridement - CPT: 84880-[id number] of active wound <20cm ([id number]) Time Spent (min) 45
== END 2025-01-18 10:45 | disposition home or self-care (01) ==
LOC: HO.HPODS 10:16
PROVIDERS: PCP Nurse Practitioner Family; Visit Provider Student in an Organized Health Care Education/Training Program
DX: E11.621 Type 2 diabetes mellitus with foot ulcer (principal); M86.9 Osteomyelitis, unspecified
CPT/HCPCS: 97597; 99214

== ENCOUNTER → 2025-01-18 10:14 | Outpatient (BNVA) | payer MEDICARE, MEDICAID, SELFPAY | PROVIDERS: PCP Nurse Practitioner Family; Visit Provider Student in an Organized Health Care Education/Training Program | DX: E11.621 Type 2 diabetes mellitus with foot ulcer (principal); Z79.4 Long term (current) use of insulin; I83.12 Varicose veins of left lower extremity with inflammation; L97.529 Non-pressure chronic ulcer of other part of left foot with unspecified severity; L97.526 Non-pressure chronic ulcer of other part of left foot with bone involvement without evidence of necrosis; M86.9 Osteomyelitis, unspecified | CPT/HCPCS: 97597; 99211; 99212 ==

== ENCOUNTER 2025-01-18 12:32 | Outpatient (AMB) | payer MEDICARE, MEDICAID, SELFPAY ==
--- NOTE | 2025-01-18 13:18 | MHC.AMDMED ---
Intake Intake Visit Reasons: Type 2 DM Swager Operator Required: No Accompanied by: Self / Same As Patient Allergies No Known Allergies Allergy (Verified 01/18/25 10:27) HPI Comprehensive Diabetes Asmnt Most Recent Diabetes Results: Microalb/Creat Ratio, (<30) 164.2 ug/mg cr H 09/13/24 Cholesterol, (<200) 160 mg/dL 10/25/24 HDL Cholesterol, (>40) 28 mg/dL L 10/25/24 Triglycerides, (<150) 254 mg/dL H 10/25/24 Creatinine, (0.5-1.4) 1.43 mg/dL H 01/17/25 BUN, (9-16) 23 mg/dL H 01/17/25 Sodium, (135-145) 134 mmol/L L 01/17/25 Potassium, (3.3-5.1) 4.9 mmol/L 01/17/25 Chloride, (96-108) 98 mmol/L 01/17/25 Carbon Dioxide, (22-29) 28 mmol/L 01/17/25 Calcium, (8.4-10.2) 9.9 mg/dL Δ 01/17/25 AST, (5-37) 28 U/L 01/17/25 ALT, (0-40) 135 U/L H 01/17/25 Total Protein, (6.5-8.0) 7.2 g/dL 01/17/25 Albumin, (3.5-5.0) 4.2 g/dL 01/17/25 [facility] Medical History (Updated 01/16/25 @ 09:02 by Maya Bullard, [facility]) Diabetic ulcer of left foot Foot osteomyelitis, left Foot ulcer, left History of osteomyelitis Spinal stenosis Hydrocele Hx of gout Umbilical hernia Diverticular disease History of MRSA infection of lungs History of alcohol withdrawal delirium Anxiety with depression Critical illness myopathy Nasal septal defect ETOH abuse Throat cancer Surgical History History of surgery on lower extremity H/O excision of mass Family History Father No problems noted. Mother No problems noted. Social History Household Members: None Housing: House Do you presently have visiting nurse or other home services: Yes Alcohol intake: current Alcohol intake frequency: 3 or more drinks per day Alcohol type: beer Comment: 1:1 sitter Patient Tobacco Use Status: Current everyday Tobacco user Tobacco use type: Cigarette Cigarettes Per Day: 10 e-Cigarette/Vaping Use: Never Used Second Hand Smoke Exposure: No Advance Directives Date on File: 06/06/24 service: No Current occupational status: retired Current occupational exposures/hazards: No Cognitive needs: No Hearing needs: No Vision needs: No Assessment & Plan Assessment & Plan (1) Insulin dependent type 2 diabetes mellitus, controlled: Code(s): E11.9 - Type 2 diabetes mellitus without complications; Z79.4 - intermediate frame tender (current) use of insulin Plan: Diabetes self-management education and support participation record Assessment/scale: 1= needs instructed? 2= needs review? 3= comprehend keep point? 4= demonstrates understanding/ competent? NC= Not Covered Topics Learning Objective: Initial visit Initial or post srvc Initial or post srvc Initial or post srvc Initial or post srvc Initial or post srvc Post srvc Comments Pre Edu-assessment/plan Outcome or reassess Outcome or reassess Outcome or reassess Outcome or reassess Outcome or reassess Outcome or reassess Diabetes pathophysiology 1 Healthy eating 1 Being active 1 Taking medication 1 Monitoring glucose 1 Acute complication 1 Chronic complicated 1 Lifestyle and healthy coping 1 Diabetes distress in support 1 ?Diabetes pathophysiology: ?Defined diabetes med identify own type of diabetes; list 3 options for treating diabetes Healthy eating: ?Described effect of type, amount and ?timing of food on blood glucose; list 3 methods for planning meal Being active: ?State effect of exercise on blood glucose level Taking medication: ?State effect of diabetes medications on diabetes; name diabetes medications taking, action and side effects Monitoring glucose: ?Identify recommended blood glucose targets and personal target Acute complication: ?List symptoms and treatment of hyper and hypoglycemia, DKA, sick day guidelines and guidelines for severe weather or situations of crisis and diabetes supply manage Chronic complication: ?To find the relationship of blood glucose levels to long-term complications of diabetes in screening and preventative measures Lifestyle and healthy coping: ?Described lifestyle and healthy coping strategies to rule out diabetes self-management Diabetes to stress and support: ?Recognize Diabetes to stress and be able to identified support options Learning objectives: The patient was provided with verbal and written education on the following topics as outlined below. The patient met all learning objectives and was able to verbalize understanding and provide teach back of education topics discussed . The patient was provided with the opportunity to ask questions and all questions were answered. Patient Assessment Assess patient education level/literacy/barriers, patient's last A1c on 01/17/2025 7.7% Patient is currently using Lantus 10 units daily At last visit with Dr. Holly Jardiance was stopped He is prescribed Trulicity 0.75 mg but reports he has not taken in 3 weeks, new prescription requested at today's visit Metformin 500 mg b.i.d. At today's visit patient is sensor read 315 mg/dL, patient reports he had just eaten a hamburger, fries and soda from [employer] Patient encouraged to drink as much water as possible. And avoid high carbohydrate foods for better glucose control. You discussed action of Lantus, and patient's visit with Dr. Holly it stated he was on basal bolus insulin but patient has not been ever prescribed rapid acting insulin. Message sent to Dr. Holly to see if it would be appropriate to start patient on mealtime insulin Patient has left foot ulcer, he is being followed by vascular surgery and has procedure scheduled to assess status of wound. Patient questions/concerns What is Diabetes? Pathophysiology How the body produces and uses insulin Identify type of DM Risk factors Signs of Diabetes Brief overview of Diabetes Management Monitoring blood sugar Following a meal plan Regular exercise Maintaining a healthy weight Taking medication as needed Members of the care team (PCP, RN, MA, RD, CDE, account resolution expert) Blood glucose monitoring When/how often to test Target blood sugar ranges Introduction to Nutrition Importance of healthy diet in managing DM Diet is personalized to individual preference Review patient?s regular diet/food preferences Who prepares meals/does food shopping/ Dining out?/ Barriers? How diet effects glucose Eating 3 balanced meals a day with small, healthy snacks between meals Review food groups Carbohydrates: What is a carbohydrate/Which food/food groups are considered carbohydrates Effect of carbohydrates on blood glucose Portion sizes Reading food labels Basic carb counting (if applicable per nursing assessment) Plate method Meal planning Recommendations: Follow plate method, consistent carbs and read nutritional labels. Smart Goal: Patient will identify foods in current meal plan that contain carbohydrates Educational Materials: The patient was provided with the following written educational materials: Planning Healthy Meals Handout Patient Response to instructions: Comprehension of Instructions: Fair Readiness to make changes: Contemplation How confident they feel about making changes: Positive Portions of this note were created using voice recognition software, please excuse any words or phrases that may have been misinterpreted. Patient Instructions: Include regular daily activity. ADA recommends 30 minutes of exercise 5 days a week. Weight loss talk to PCP or Business Support Administrator before starting new plan. Test blood sugar as directed; Fasting and 2hpp largest meal. Watch trends in results. Utilize results and to assess how food, physical activity and medications affect blood sugar results. Bring glucometer or CGM to next visit. Be knowledgeable about diabetes medication, its action, side effects, efficacy, toxicity, prescribed dosage, appropriate timing and frequency of administration, effect of missed and delayed doses and instructions for storage, travel and safety. Problem solving techniques to monitor hypo/hyperglycemia episodes and treatments. Reduce risk reduction behaviors, smoking cessation, regular eye, foot and dental examinations. Coding Level of Care Code Est Pt Level 1 (83030) Diagnoses Insulin dependent type 2 diabetes mellitus, controlled E11.9; Z79.4
== END 2025-01-18 13:23 | disposition home or self-care (01) ==
LOC: HO.ENCR 12:34
PROVIDERS: PCP Nurse Practitioner Family; Visit Provider Registered Nurse Diabetes Educator
DX: E11.9 Type 2 diabetes mellitus without complications (principal); Z79.4 Long term (current) use of insulin

== ENCOUNTER 2025-01-24 10:16 | Outpatient (AMB) | payer MEDICARE, MEDICAID, SELFPAY ==
--- NOTE | 2025-01-24 10:15 | HO.NEPHOV_ITS ---
Vital Signs 01/24/25 10:16 Height 5 ft 11 in Weight 206 lb BMI 28.7 Intake Visit Reasons: F/U-CONF Computer Numerical Control Operator Required: No Accompanied by: Self / Same As Patient Allergies No Known Allergies Allergy (Verified 01/24/25 10:15) Medication List - Last Reconciled 01/24/25 by Faisal Lima MD acamprosate 666 mg (2 x 333 mg) PO TID alcohol swabs (Alcohol Prep Pads) topically; use 1 prep pad to clean skin prior to injections up to 5 x daily aspirin (Ecotrin Low Strength) 81 mg PO DAILY atorvastatin 10 mg PO BEDTIME bicalutamide 50 mg PO DAILY 90 days blood sugar diagnostic (Accu-Chek Guide test strips) use once daily As directed to monitor blood sugars blood-glucose meter (Accu-Chek Guide Glucose Meter) Use once daily As directed to monitor blood sugars blood-glucose sensor (MessageGears G7 Sensor device) Use daily As directed cephalexin 500 mg PO QID 7 days doxycycline hyclate 100 mg PO BID 7 days dulaglutide (Trulicity) 0.75 mg (0.5 mL) subcut QWEEK fluticasone propion-salmeterol 250-50 mcg/dose 1 ea inhalation BID fluticasone propionate 50 mcg/actuation 1 spray intranasal DAILY folic acid 1 mg PO DAILY insulin glargine (Lantus Solostar U-100 Insulin) 14 units (0.14 mL) subcut BEDTIME lancets (Accu-Chek Softclix Lancets) use once daily As directed to monitor blood sugars levofloxacin 250 mg PO DAILY levothyroxine 200 mcg PO DAILY@0600 losartan 50 mg PO DAILY metformin 500 mg PO BID metoprolol succinate ER 50 mg PO DAILY mometasone 0.1% 1 appl topical DAILY montelukast 10 mg PO DAILY omeprazole 20 mg PO DAILY@0630 pen needle, diabetic Use daily As directed pregabalin 75 mg PO BID sertraline 100 mg PO DAILY tamsulosin (Flomax) 0.4 mg PO BEDTIME zinc oxide 20% 1 ea topical DAILY HPI Comments Details: 58-year-old male presenting with medication adjustment and follow-up for kidney function and blood pressure management. The patient has a history of chronic kidney disease, where kidney function plunged to 29% during a previous hospitalization. He has recently experienced significant fatigue and dizziness since returning home, potentially linked to low blood pressure noted at the same time. Amlodipine, part of his antihypertensive regimen, is suspected to contribute to hypotension, and its use is being reconsidered. Additionally, the patient is known to have diabetes mellitus and has been receiving treatment for alcohol use disorder. The management and progress of these conditions were acknowledged but were not elaborated upon in terms of specific therapeutic measures. It is crucial to monitor blood pressure and kidney function carefully due to their potential to worsen the patient's fatigue and overall condition. 08/04/24 Feels better Stopped Amlodipine BP at home was 116/70 by RN 09/27/2024. Not sure if he is taking his medications. Blood pressure is rather low today. He is asymptomatic 11/08/24 - The patient is a 59-year-old male presenting with hypertension. - Hypertension: Low blood pressure noted, possibly due to medication. - Fatigue: Reports of excessive tiredness and daytime naps. - Medication adherence: On multiple medications with dosage confusion. Reviewed with patient 01/24/25 This is a telehelath Home BP 117/80 [facility] Medical History (Updated 01/16/25 @ 09:02 by Maya Bullard, [facility]) Diabetic ulcer of left foot Foot osteomyelitis, left Foot ulcer, left History of osteomyelitis Spinal stenosis Hydrocele Hx of gout Umbilical hernia Diverticular disease History of MRSA infection of lungs History of alcohol withdrawal delirium Anxiety with depression Critical illness myopathy Nasal septal defect ETOH abuse Throat cancer Surgical History History of surgery on lower extremity H/O excision of mass Family History Father No problems noted. Mother No problems noted. Social History Household Members: None Housing: House Do you presently have visiting nurse or other home services: Yes Alcohol intake: current Alcohol intake frequency: 3 or more drinks per day Alcohol type: beer Comment: 1:1 sitter Patient Tobacco Use Status: Current everyday Tobacco user Tobacco use type: Cigarette Cigarettes Per Day: 10 e-Cigarette/Vaping Use: Never Used Second Hand Smoke Exposure: No Advance Directives Date on File: 06/06/24 service: No Current occupational status: retired Current occupational exposures/hazards: No Cognitive needs: No Hearing needs: No Vision needs: No Physical Exam Vital Signs: BMI result Body Mass Index 28.7 Telehealth Telehealth Telehealth Platform: Telephone Location of provider rendering services: practice address Location of patient: address on file Patient Identification confirmed using: Name, : Yes Telehealth method: voice only Patient verbally consented to treatment: Yes Patient verbally consented to billing insurance company: Yes Patient informed of any privacy concerns related to visit: Yes Minutes spent on Phone/Video with Pt.: 7 Results Reviewed Nephrology Results: Hgb, (14.0-18.0) 11.9 g/dl L 01/17/25 WBC, (4.8-10.8) 8.5 X10*3/uL 01/17/25 Plt Count, (160-400) 196 X10*3/uL Δ 01/17/25 Sodium, (135-145) 134 mmol/L L 01/17/25 Potassium, (3.3-5.1) 4.9 mmol/L 01/17/25 Chloride, (96-108) 98 mmol/L 01/17/25 Carbon Dioxide, (22-29) 28 mmol/L 01/17/25 BUN, (9-16) 23 mg/dL H 01/17/25 Creatinine, (0.5-1.4) 1.43 mg/dL H 01/17/25 Calcium, (8.4-10.2) 9.9 mg/dL Δ 01/17/25 Urine Protein, (Neg-Trace) Negative mg/dL 12/29/24 Assessment & Plan Assessment & Plan (1) DARRELL (acute kidney injury): Comment: hypoperfusion/ATN- resolving Code(s): N17.9 - Acute kidney failure, unspecified Category: Medical Plan: Keep I > O Avoid nephrotoxins 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 Renal function improved after stopping HCT (2) Hypotension: Code(s): I95.9 - Hypotension, unspecified Category: Medical Plan: Changed MEtoprolol to 50 mg from 100 mg Changed Losartan HCT 50/12.5 to Losartan 50 mg QD Currently BP is acceptable (3) Diabetic ulcer of left foot associated with diabetes mellitus due to underlying condition: Code(s): E08.621 - Diabetes mellitus due to underlying condition with foot ulcer; L97.529 - Non-pressure chronic ulcer of other part of left foot with unspecified severit y Category: Medical Qualifiers: Diabetic foot ulcer location: unspecified part of foot Non-pressure ulcer stage: unspecified non-pressure ulcer stage Qualified Code(s): E08.621 - Diabetes mellitus due to underlying condition with foot ulcer; L97.529 - Non- pressure chronic ulcer of other part of left foot with unspecified severity Plan: slightly improved follow up with podiatry and vascular surgery as directed continue with wound care Awaiting surgery (4) CKD stage 3 secondary to diabetes: Code(s): E11.22 - Type 2 diabetes mellitus with diabetic chronic kidney disease; N18.30 - Chronic kidney disease, stage 3 unspecified Category: Medical Plan: Creatinine closer to baseline Orders: Orders Basic Metabolic Panel 4 Months E11.22 - Type 2 diabetes mellitus with diabetic chronic kidney disease, N18.30 - Chronic kidney disease, stage 3 unspecified Complete Blood Count no Diff 4 Months E11.22 - Type 2 diabetes mellitus with diabetic chronic kidney disease, N18.30 - Chronic kidney disease, stage 3 unspecified Coding Level of Care Code Tele New Pt Level 3 (80081) Diagnoses DARRELL (acute kidney injury) N17.9 Hypotension I95.9 Diabetic ulcer of left foot associated with diabetes mellitus due to underlying condition, unspecified part of foot, unspecified ulcer stage E08.621; L97.529 Diabetic foot ulcer location: unspecified part of foot Non-pressure ulcer stage: unspecified non-pressure ulcer stage CKD stage 3 secondary to diabetes E11.22; N18.30
[2025-01-24 10:16] VITALS: BMI 28.7
--- OUTSIDE RECORDS SUMMARY | 2025-01-24 12:48 | XMS_ITS | Encounter Summary ---
Author Organization [facility] Address [address] [place] [phone] Care Team Providers Care Gut Carrier Name Role Phone Rita Fierro MD Primary Care Provide r Encounter Details Date Type Department Care Team (Late st Contact Info) Description 06/06/2024 Lab Requisition [facility] - Main Lab [address] [facility] [place] [address] Krishan Sotelo MD [address] [place] [address] [address] [facility] [phone] Essential (primary) hypertension; Type 2 [...] 2 diabetes mellitus without complications (CMS/HCC V24, [facility] V28) Metabolic encephalopathy Alcohol use, unspecified with withdrawal delirium ([facility] V24, [facility] V28) COMPREHENSIVE METABOLIC PANEL Routine 06/06/2024 7:22 AM EDT Essential (primary) hypertension Type 2 diabetes mellitus without complications ([facility] V24, [facility] V28) Metabolic encephalopathy Alcohol use, unspecified with withdrawal delirium ([facility] V24, [facility] V28) documented in this encounter Results * (ABNORMAL) CBC auto differential (06/06/2024 7:22 AM EDT) [facility] WBC 9.4 4.8 - 10.8 K/mcL LAB HEMETOLOGY METHOD 06/06/2024 10:49 AM [facility] RBC 2.80(L) 4.50 - 5.50 M/mcL LAB HEMETOLOGY METHOD 06/06/2024 10:49 AM [facility] Hemoglobin 9.2(L) 13.5 - 17.5 g/dL LAB HEMETOLOGY METHOD 06/06/2024 10:49 AM [facility] Hematocrit 28.4(L) 42.0 - 54.0 % LAB HEMETOLOGY METHOD 06/06/2024 10:49 AM [facility] MCV 102.9(H) 79.0 - 98.0 FL LAB HEMETOLOGY METHOD 06/06/2024 10:49 AM [facility] MCH 33.3(H) 27.0 - 32.0 pcg LAB HEMETOLOGY METHOD 06/06/2024 10:49 AM [facility] MCHC 32.4 32.0 - 37.0 g/dL LAB HEMETOLOGY METHOD 06/06/2024 10:49 AM [facility] RDW 15.5(H) 11.0 - 15.0 % LAB HEMETOLOGY METHOD 06/06/2024 10:49 AM [facility] Platelets 505(H) 130 - 400 K/mcL LAB HEMETOLOGY METHOD 06/06/2024 10:49 AM [facility] MPV 10.2 7.0 - 11.0 FL LAB HEMETOLOGY METHOD 06/06/2024 10:49 AM [facility] NRBC 0.0 <1.0 % LAB HEMETOLOGY METHOD 06/06/2024 10:49 AM [facility] NRBC Absolute 0.00 <0.10 K/mcL LAB HEMETOLOGY METHOD 06/06/2024 10:49 AM [facility] Neutrophils Relative 71.0 % LAB HEMETOLOGY METHOD 06/06/2024 10:49 AM [facility] Lymphocytes Relative 13.6 % LAB HEMETOLOGY METHOD 06/06/2024 10:49 AM [facility] Monocytes Relative 7.0 % LAB HEMETOLOGY METHOD 06/06/2024 10:49 AM [facility] Eosinophils Relative 6.1 % LAB HEMETOLOGY METHOD 06/06/2024 10:49 AM [facility] Basophils Relative 1.1 % LAB HEMETOLOGY METHOD 06/06/2024 10:49 AM [facility] Immature Granulocytes Relative 1.2 % LAB HEMETOLOGY METHOD 06/06/2024 10:49 AM [facility] Neutrophils Absolute 6.66 1.50 - 7.00 K/mcL LAB HEMETOLOGY METHOD 06/06/2024 10:49 AM [facility] Lymphocytes Absolute 1.28 1.00 - 5.00 K/mcL LAB HEMETOLOGY METHOD 06/06/2024 10:49 AM [facility] Monocytes Absolute 0.66 0.20 - 1.00 K/mcL LAB HEMETOLOGY METHOD 06/06/2024 10:49 AM EDT [facility] Eosinophils Absolute 0.57(H) 0.00 - 0.50 K/mcL LAB HEMETOLOGY METHOD 06/06/2024 10:49 AM T [facility] Basophils Absolute 0.10 0.00 - 0.20 K/mcL LAB HEMETOLOGY METHOD 06/06/2024 10:49 AM EDT [facility] Immature Granulocytes Absolute 0.11(H) 0.00 - 0.03 K/mcL LAB HEMETOLOGY METHOD 06/06/2024 10:49 AM T [facility] Blood Venous blood specimen / Unknown Venipuncture / Unknown 06/06/2024 7:22 AM EDT 06/06/2024 9:08 AM EDT us Krishan Sotelo MD LAB BLOOD ORDERABLES Final Resul t [facility] [address] [place] [address], [place] [phone] * (ABNORMAL) Comprehensive metabolic panel (06/06/2024 7:22 AM EDT) Sodium 134 133 - 145 mmol/L LAB CHEMISTRY METHOD 06/06/2024 12:50 PM [facility] Potassium 4.0 3.5 - 5.5 mmol/L LAB CHEMISTRY METHOD 06/06/2024 12:50 PM [facility] Chloride 100 96 - 110 mmol/L LAB CHEMISTRY METHOD 06/06/2024 12:50 PM [facility] CO2 24 21 - 32 mmol/L LAB CHEMISTRY METHOD 06/06/2024 12:50 PM [facility] Anion Gap 10 3 - 11 LAB CHEMISTRY METHOD 06/06/2024 12:50 PM [facility] Glucose 146(H) 70 - 100 mg/dL LAB CHEMISTRY METHOD 06/06/2024 12:50 PM [facility] BUN 20 5 - 25 mg/dL LAB CHEMISTRY METHOD 06/06/2024 12:50 PM [facility] Creatinine 1.50(H) 0.70 - 1.30 mg/dL LAB CHEMISTRY METHOD 06/06/2024 12:50 PM [facility] eGFR 53(L) >=60 mL/min/1. 73m2 LAB CHEMISTRY METHOD 06/06/2024 12:50 PM [facility] Comment:Calculation based on the Chronic Kidney Disease Epidemiology Collaboration (CKD-EPI) equation refit without adjustment for race. BUN/Creatinine Ratio 13.3 LAB CHEMISTRY METHOD 06/06/2024 12:50 PM [facility] Calcium 9.4 8.5 - 10.5 mg/dL LAB CHEMISTRY METHOD 06/06/2024 12:50 PM [facility] AST (SGOT) 16 10 - 42 unit/L LAB CHEMISTRY METHOD 06/06/2024 12:50 PM [facility] ALT (SGPT) 15 10 - 60 unit/L LAB CHEMISTRY METHOD 06/06/2024 12:50 PM [facility] Alkaline Phosphatase 83 42 - 121 unit/L LAB CHEMISTRY METHOD 06/06/2024 12:50 PM [facility] Total Protein 7.1 6.0 - 8.0 g/dL LAB CHEMISTRY METHOD 06/06/2024 12:50 PM [facility] Albumin 3.3 3.2 - 5.0 g/dL LAB CHEMISTRY METHOD 06/06/2024 12:50 PM [facility] Total Bilirubin 0.4 0.0 - 1.4 mg/dL LAB CHEMISTRY METHOD 06/06/2024 12:50 PM [facility] Blood Venous blood specimen / Unknown Venipuncture / Unknown 06/06/2024 7:22 AM EDT 06/06/2024 9:08 AM EDT us Krishan Sotelo MD LAB BLOOD ORDERABLES Final Resul t [facility] ([facility]) [facility] [address] [place] [address], [place] [phone] documented in this encounter Visit Diagnoses Diagnosis Essential (primary) hypertension Unspecified essential hypertension Type 2 diabetes mellitus without complications (CMS/[facility] V24, CMS/[facility] V28) Metabolic encephalopathy Alcohol use, unspecified with withdrawal delirium (CMS/[facility] V24, CMS/[facility] V28) documented in this encounter Care Teams Gut Carrier Relationship Specialty Start Date End Date Rita Fierro MD [address] [place] [address] PCP - General Internal Medicine 08/02/16 documented as of this encounter
--- OUTSIDE RECORDS SUMMARY | 2025-01-24 12:48 | XMS_ITS | Clinical Summary ---
Author Organization [facility] Prior to 07/09/24 Address [address] [place] [address] Care Team Providers Care Manager Of Financial Planning Name Role Phone Rita Fierro MD Primary [...] complete this topic Care Teams Manager Of Financial Planning Relationship Specialty Start Date End Date Rita Fierro MD [address] [place] [address] [place] [address] PCP - General Internal Medicine 08/02/16
--- OUTSIDE RECORDS SUMMARY | 2025-01-24 12:48 | XMS_ITS | Encounter Summary ---
Author Organization [facility] Prior to 07/09/[address] [place] [id number] Care Team Providers Care Production Grip Name Role Phone Rita Fierro MD Primary Care Provide r Encounter Details Date Type Department Care Team Description 02/21/2022 Social Work [facility] Oncology Services [address] [place] [address] Ramon Hoskins, [facility] Social History Tobacco Use Types Packs/Day Years [...] on filedocumented in this encounter Care Teams Production Grip Relationship Specialty Start Date End Date Rita Fierro MD [address] [place] [id number] PCP - General Internal Medicine 08/02/16 documented as of this encounter
--- OUTSIDE RECORDS SUMMARY | 2025-01-24 12:48 | XMS_ITS | Encounter Summary ---
Author Organization [facility] Address [address] [place] [address] Care Team Providers Care Trench Shovel Operator Name Role Phone Rita Fierro MD Primary Care Provide r Encounter Details Date Type Department Care Team (Late st Contact Info) Description 06/08/2024 Lab Requisition [facility] - Main Lab [address] [facility] [place] [address] Krishan Sotelo MD [address] [place] [address] [address] [place], [phone] Type 2 diabetes mellitus without complications [...] 2 diabetes mellitus without complications (CMS/HCC V24, CMS/[facility] V28) documented in this encounter Results * (ABNORMAL) Hemoglobin A1c (06/08/2024 7:34 AM EDT) Hemoglobin A1C 7.1(H) <6.5 % LAB CHEMISTRY METHOD 06/08/2024 12:47 PM EDT [facility] Mean Bld Glu Estim. 157 mg/dL LAB CHEMISTRY METHOD 06/08/2024 12:47 PM EDT [facility] Blood Venous blood specimen / Unknown Venipuncture / Unknown 06/08/2024 7:34 AM EDT 06/08/2024 10:04 AM EDT us Krishan Sotelo MD LAB BLOOD ORDERABLES Final Resul t [facility] [address] [place] [address], documented in this encounter Visit Diagnoses Diagnosis Type 2 diabetes mellitus without complications (CMS/HCC V24, CMS/HCC V28) documented in this encounter Care Teams Trench Shovel Operator Relationship Specialty Start Date End Date Rita Fierro MD [address] [place] [address] [place] PCP - General Internal Medicine 08/02/16 documented as of this encounter
--- OUTSIDE RECORDS SUMMARY | 2025-01-24 12:49 | XMS_ITS | Clinical Summary ---
Author Organization [employer] Address [address] [facility] [address] [place] [address] Care Team Providers Care Plasma Center Technician Name Role Phone Unavailable Primary Care Provider [...] patient's age [place] [id number] [facility] MEDICARE ADVANTAGE
--- OUTSIDE RECORDS SUMMARY | 2025-01-24 12:49 | XMS_ITS | Clinical Summary ---
Author Organization [address] [facility] Address [address] [place] [address] Phone Care Team Providers Care Research Instructor Name Role Phone Rita Fierro MD Primary [...] EDT Type 2 diabetes mellitus without complications ([facility] V24, [facility] V28) COMPREHENSIVE METABOLIC PANEL Routine 06/06/2024 7:22 AM EDT Essential (primary) hypertension Type 2 diabetes mellitus without complications ([facility] V24, [facility] V28) Metabolic encephalopathy Alcohol use, unspecified with withdrawal delirium ([facility] V24, [facility] V28) from Last 3 Months or Most Recently Relevant to Health Maintenance Results * (ABNORMAL) Hemoglobin A1c (06/08/2024 7:34 AM EDT) Hemoglobin A1C 7.1(H) <6.5 % LAB CHEMISTRY METHOD 06/08/2024 12:47 PM EDT [facility] Mean Bld Glu Estim. 157 mg/dL LAB CHEMISTRY METHOD 06/08/2024 12:47 PM EDT [facility] Blood Venous blood specimen / Unknown Venipuncture / Unknown 06/08/2024 7:34 AM EDT 06/08/2024 10:04 AM EDT us Krishan Sotelo MD LAB BLOOD ORDERABLES Final Resul t [facility] [address] [place] [address], * (ABNORMAL) Comprehensive metabolic panel (06/06/2024 7:22 AM EDT) Sodium 134 133 - 145 mmol/L LAB CHEMISTRY METHOD 06/06/2024 12:50 PM EDT [facility] Potassium 4.0 3.5 - 5.5 mmol/L LAB CHEMISTRY METHOD 06/06/2024 12:50 PM EDT [facility] Chloride 100 96 - 110 mmol/L LAB CHEMISTRY METHOD 06/06/2024 12:50 PM [facility] CO2 24 21 - 32 mmol/L LAB CHEMISTRY METHOD 06/06/2024 12:50 PM [facility] Anion Gap 10 3 - 11 LAB CHEMISTRY METHOD 06/06/2024 12:50 PM [facility] Glucose 146(H) 70 - 100 mg/dL LAB CHEMISTRY METHOD 06/06/2024 12:50 PM [facility] BUN 20 5 - 25 mg/dL LAB CHEMISTRY METHOD 06/06/2024 12:50 PM [facility] Creatinine 1.50(H) 0.70 - 1.30 mg/dL LAB CHEMISTRY METHOD 06/06/2024 12:50 PM [facility] eGFR 53(L) >=60 mL/min/1. 73m2 LAB CHEMISTRY METHOD 06/06/2024 12:50 PM [facility] Comment:Calculation based on the Chronic Kidney Disease Epidemiology Collaboration (CKD-EPI) equation refit without adjustment for race. BUN/Creatinine Ratio 13.3 LAB CHEMISTRY METHOD 06/06/2024 12:50 PM [facility] Calcium 9.4 8.5 - 10.5 mg/dL LAB CHEMISTRY METHOD 06/06/2024 12:50 PM [facility] AST (SGOT) 16 10 - 42 unit/L LAB CHEMISTRY METHOD 06/06/2024 12:50 PM [facility] ALT (SGPT) 15 10 - 60 unit/L LAB CHEMISTRY METHOD 06/06/2024 12:50 PM [facility] Alkaline Phosphatase 83 42 - 121 unit/L LAB CHEMISTRY METHOD 06/06/2024 12:50 PM [facility] Total Protein 7.1 6.0 - 8.0 g/dL LAB CHEMISTRY METHOD 06/06/2024 12:50 PM EDT [facility] Albumin 3.3 3.2 - 5.0 g/dL LAB CHEMISTRY METHOD 06/06/2024 12:50 PM EDT [facility] Total Bilirubin 0.4 0.0 - 1.4 mg/dL LAB CHEMISTRY METHOD 06/06/2024 12:50 PM EDT [facility] Blood Venous blood specimen / Unknown Venipuncture / Unknown 06/06/2024 7:22 AM EDT 06/06/2024 9:08 AM EDT us Krishan Sotelo MD LAB BLOOD ORDERABLES Final Resul t [facility] [address] [place] [address], from Last 3 Months or Most Recently Relevant to Health Maintenance Insurance [place] [address] MEDICAID - [place] Advance Directives Documents on File Type Date Recorded Patient Educator Senior Clinical Expl anation Health Care Decision (hx) 09/27/2018 [...] (hx) 09/27/2018 AD GARCIA DIRECTIVE Care Teams Research Instructor Relationship Specialty Start Date End Date Rita Fierro MD [address] [place] [address] PCP - General Internal Medicine 08/02/16
--- OUTSIDE RECORDS SUMMARY | 2025-01-24 12:49 | XMS_ITS | Clinical Summary ---
Author Organization [facility] Address [address] [place] [phone] Phone Care Team Providers Care Cane Burner Name Role Phone Rita Fierro MD Primary [...] topic Medical Devices Not on file Insurance [facility] C[facility] MEDICARE REPLACEMENT Member Subscriber Plan / Payer (Ef fective 2021-Present) Name:Romaine Longoria Relation to Subscriber:Self Name:Romaine Longoria Payer ID:[id number] (NAIC) Group ID:[id number] Type:Medicare [address] [facility] CARE MEDICARE [place] [address] [place] [address] [address] [place] [place] [address] CARE MEDICARE REPLACEMENT [facility] MEDICARE REPLACEMENT [facility]ARE MEDICARE REPLACEMENT [facility] CARE MEDICARE REPLACEMENT [facility] CARE MEDICARE REPLACEMENT [facility] ONE CARE MEDICARE REPLACEMENT [address] [facility] Advance Directives For more information, please contact: [phone] (9AM - 5PM [facility], Thursday-Thursday) Documents on File Type Date Recorded Patient Fire Prevention Specialist Expl anation Healthcare Proxy 08/27/2015 11:01 AM * Full Code (Presumed) (Latest Code Status on File) Date Activated Date Inactivated Comments 08/22/2015 11:35 AM 08/24/2015 10:39 AM Care Teams Cane Burner Relationship Specialty Start Date End Date Rita Fierro MD [address] [place] [address] PCP - General Internal Medicine 01/12/15 Additional Source Comments The information contained in this document represents components of the legal health record. It is not the complete legal health record.[facility]
== END 2025-01-24 16:51 | disposition home or self-care (01) ==
LOC: HO.HKA 10:17
PROVIDERS: PCP Nurse Practitioner Family; Visit Provider Internal Medicine Hypertension Specialist
DX: N17.9 Acute kidney failure, unspecified (principal); I95.9 Hypotension, unspecified; E08.621 Diabetes mellitus due to underlying condition with foot ulcer; L97.529 Non-pressure chronic ulcer of other part of left foot with unspecified severity; E11.22 Type 2 diabetes mellitus with diabetic chronic kidney disease; N18.30 Chronic kidney disease, stage 3 unspecified
CPT/HCPCS: 99213

== ENCOUNTER 2025-01-25 09:34 | Outpatient (REF) | payer MEDICARE, MEDICAID, SELFPAY ==
--- NOTE | ~2025-01-25 | XR_ITS ---
EXAMINATION: XR CHEST 2 VIEWS HISTORY: Z01.818 - Encounter for other preprocedural examination COMPARISON: Comparison is made with the prior examination dated 05/26/2024. FINDINGS: PA and lateral views of the chest are submitted. There is elevation of the right hemidiaphragm. There is linear scarring in the right middle lobe. There is no pleural effusion, pneumothorax, or pulmonary vascular congestion. The heart is normal in size. There is degenerative disc disease of the spine. XR/XR chest 2V IMPRESSION: Elevation of the right hemidiaphragm. Right middle lobe scarring. Electronically signed by: Darin Portillo MD 01/25/2025 03:56 PM EST
--- OUTSIDE RECORDS SUMMARY | 2025-01-25 20:33 | XMS_ITS | Clinical Summary ---
Author Organization [facility] Prior to 07/09/24 Address [address] [place] [address] Care Team Providers Care Sterile Supply Technician Name Role Phone Rita Fierro MD Primary [...] age to complete this topic Care Teams Sterile Supply Technician Relationship Specialty Start Date End Date Rita Fierro MD [address] [place] [address] [place] [address] PCP - General Internal Medicine 08/02/16
--- OUTSIDE RECORDS SUMMARY | 2025-01-25 20:33 | XMS_ITS | Encounter Summary ---
Author Organization [facility] Address [address] [place] [address] Care Team Providers Care Peace Officer Name Role Phone Rita Fierro MD Primary Care Provide r Encounter Details Date Type Department Care Team (Late st Contact Info) Description 06/08/2024 Lab Requisition [facility] - Main Lab [address] [facility] [place] [address] Krishan Sotelo MD [address] [place] [address] [address], [phone] Type 2 diabetes mellitus without complications [...] mellitus without complications (CMS/HCC V24, CMS/[facility] V28) documented in this encounter Results * (ABNORMAL) Hemoglobin A1c (06/08/2024 7:34 AM EDT) Hemoglobin A1C 7.1(H) <6.5 % LAB CHEMISTRY METHOD 06/08/2024 12:47 PM EDT [facility] Mean Bld Glu Estim. 157 mg/dL LAB CHEMISTRY METHOD 06/08/2024 12:47 PM EDT [facility] Blood Venous blood specimen / Unknown Venipuncture / Unknown 06/08/2024 7:34 AM EDT 06/08/2024 10:04 AM EDT us Krishan Sotelo MD LAB BLOOD ORDERABLES Final Resul t [facility] [address] [place] [address], documented in this encounter Visit Diagnoses Diagnosis Type 2 diabetes mellitus without complications (CMS/HCC V24, CMS/HCC V28) documented in this encounter Care Teams Peace Officer Relationship Specialty Start Date End Date Rita Fierro MD [address] [place] [address] [place] PCP - General Internal Medicine 08/02/16 documented as of this encounter
--- OUTSIDE RECORDS SUMMARY | 2025-01-25 20:33 | XMS_ITS | Clinical Summary ---
Author Organization [employer] Address [address] [facility] [address] [place] [address] Care Team Providers Care Brassiere Cup Mold Cutter Name Role Phone Unavailable Primary Care Provider [...] patient[id number] [facility] MEDICARE ADVANTAGE
--- OUTSIDE RECORDS SUMMARY | 2025-01-25 20:33 | XMS_ITS | Encounter Summary ---
Author Organization [facility] Address [address] [place] [address] Care Team Providers Care Commercial Makeup Artist Name Role Phone Rita Fierro MD Primary Care Provide r Encounter Details Date Type Department Care Team (Late st Contact Info) Description 06/06/2024 Lab Requisition [facility] - Main Lab [address] [facility] [place] [address] Krishan Sotelo MD [address] [place] [address] [address] [facility] [phone] Essential (primary) hypertension; Type 2 [...] diabetes mellitus without complications (CMS/HCC V24, [facility] V28) Metabolic encephalopathy Alcohol use, unspecified with withdrawal delirium ([facility] V24, [facility] V28) COMPREHENSIVE METABOLIC PANEL Routine 06/06/2024 7:22 AM EDT Essential (primary) hypertension Type 2 diabetes mellitus without complications ([facility] V24, [facility] V28) Metabolic encephalopathy Alcohol use, unspecified with withdrawal delirium ([facility] V24, [facility] V28) documented in this encounter Results * (ABNORMAL) CBC auto differential (06/06/2024 7:22 AM EDT) [facility] WBC 9.4 4.8 - 10.8 K/mcL LAB HEMETOLOGY METHOD 06/06/2024 10:49 AM [facility] RBC 2.80(L) 4.50 - 5.50 M/mcL LAB HEMETOLOGY METHOD 06/06/2024 10:49 AM [facility] Hemoglobin 9.2(L) 13.5 - 17.5 g/dL LAB HEMETOLOGY METHOD 06/06/2024 10:49 AM [facility] Hematocrit 28.4(L) 42.0 - 54.0 % LAB HEMETOLOGY METHOD 06/06/2024 10:49 AM [facility] MCV 102.9(H) 79.0 - 98.0 FL LAB HEMETOLOGY METHOD 06/06/2024 10:49 AM [facility] MCH 33.3(H) 27.0 - 32.0 pcg LAB HEMETOLOGY METHOD 06/06/2024 10:49 AM [facility] MCHC 32.4 32.0 - 37.0 g/dL LAB HEMETOLOGY METHOD 06/06/2024 10:49 AM [facility] RDW 15.5(H) 11.0 - 15.0 % LAB HEMETOLOGY METHOD 06/06/2024 10:49 AM [facility] Platelets 505(H) 130 - 400 K/mcL LAB HEMETOLOGY METHOD 06/06/2024 10:49 AM [facility] MPV 10.2 7.0 - 11.0 FL LAB HEMETOLOGY METHOD 06/06/2024 10:49 AM [facility] NRBC 0.0 <1.0 % LAB HEMETOLOGY METHOD 06/06/2024 10:49 AM [facility] NRBC Absolute 0.00 <0.10 K/mcL LAB HEMETOLOGY METHOD 06/06/2024 10:49 AM [facility] Neutrophils Relative 71.0 % LAB HEMETOLOGY METHOD 06/06/2024 10:49 AM [facility] Lymphocytes Relative 13.6 % LAB HEMETOLOGY METHOD 06/06/2024 10:49 AM [facility] Monocytes Relative 7.0 % LAB HEMETOLOGY METHOD 06/06/2024 10:49 AM [facility] Eosinophils Relative 6.1 % LAB HEMETOLOGY METHOD 06/06/2024 10:49 AM [facility] Basophils Relative 1.1 % LAB HEMETOLOGY METHOD 06/06/2024 10:49 AM [facility] Immature Granulocytes Relative 1.2 % LAB HEMETOLOGY METHOD 06/06/2024 10:49 AM [facility] Neutrophils Absolute 6.66 1.50 - 7.00 K/mcL LAB HEMETOLOGY METHOD 06/06/2024 10:49 AM [facility] Lymphocytes Absolute 1.28 1.00 - 5.00 K/mcL LAB HEMETOLOGY METHOD 06/06/2024 10:49 AM [facility] Monocytes Absolute 0.66 0.20 - 1.00 K/mcL LAB HEMETOLOGY METHOD 06/06/2024 10:49 AM EDT [facility] Eosinophils Absolute 0.57(H) 0.00 - 0.50 K/mcL LAB HEMETOLOGY METHOD 06/06/2024 10:49 AM T [facility] Basophils Absolute 0.10 0.00 - 0.20 K/mcL LAB HEMETOLOGY METHOD 06/06/2024 10:49 AM EDT [facility] Immature Granulocytes Absolute 0.11(H) 0.00 - 0.03 K/mcL LAB HEMETOLOGY METHOD 06/06/2024 10:49 AM T [facility] Blood Venous blood specimen / Unknown Venipuncture / Unknown 06/06/2024 7:22 AM EDT 06/06/2024 9:08 AM EDT us Krishan Sotelo MD LAB BLOOD ORDERABLES Final Resul t [facility] [address] [place] [address], [place] [phone] * (ABNORMAL) Comprehensive metabolic panel (06/06/2024 7:22 AM EDT) Sodium 134 133 - 145 mmol/L LAB CHEMISTRY METHOD 06/06/2024 12:50 PM [facility] Potassium 4.0 3.5 - 5.5 mmol/L LAB CHEMISTRY METHOD 06/06/2024 12:50 PM [facility] Chloride 100 96 - [...] 12:50 PM [facility] Total Bilirubin 0.4 0.0 - 1.4 mg/dL LAB CHEMISTRY METHOD 06/06/2024 12:50 PM [facility] Blood Venous blood specimen / Unknown Venipuncture / Unknown 06/06/2024 7:22 AM EDT 06/06/2024 9:08 AM EDT us Krishan Sotelo MD LAB BLOOD ORDERABLES Final Resul t [facility] [address] [place] [address], [place] [phone] documented in this encounter Visit Diagnoses Diagnosis Essential (primary) hypertension Unspecified essential hypertension Type 2 diabetes mellitus without complications ([facility] V24, [facility] V28) Metabolic encephalopathy Alcohol use, unspecified with withdrawal delirium ([facility] V24, [facility] V28) documented in this encounter Care Teams Commercial Makeup Artist Relationship Specialty Start Date End Date Rita Fierro MD [address] [place] [address] PCP - General Internal Medicine 08/02/16 documented as of this encounter
--- OUTSIDE RECORDS SUMMARY | 2025-01-25 20:33 | XMS_ITS | Clinical Summary ---
Author Organization [address] [facility] Address [address] [place] [address] Phone Care Team Providers Care Employee Representative Name Role Phone Rita Fierro MD [...] EDT Type 2 diabetes mellitus without complications ([facility] V24, [facility] V28) COMPREHENSIVE METABOLIC PANEL Routine 06/06/2024 7:22 AM EDT Essential (primary) hypertension Type 2 diabetes mellitus without complications ([facility] V24, [facility] V28) Metabolic encephalopathy Alcohol use, unspecified with withdrawal delirium ([facility] V24, [facility] V28) from Last 3 Months or Most Recently Relevant to Health Maintenance Results * (ABNORMAL) Hemoglobin A1c (06/08/2024 7:34 AM EDT) Hemoglobin A1C 7.1(H) <6.5 % LAB CHEMISTRY METHOD 06/08/2024 12:47 PM EDT [facility] Mean Bld Glu Estim. 157 mg/dL LAB CHEMISTRY METHOD 06/08/2024 12:47 PM EDT [facility] Blood Venous blood specimen / Unknown Venipuncture / Unknown 06/08/2024 7:34 AM EDT 06/08/2024 10:04 AM EDT us Krishan Sotelo MD LAB BLOOD ORDERABLES Final Resul t [facility] [address] [place] [address], * (ABNORMAL) Comprehensive metabolic panel (06/06/2024 7:22 AM EDT) Sodium 134 133 - 145 mmol/L LAB CHEMISTRY METHOD 06/06/2024 12:50 PM EDT [facility] Potassium 4.0 3.5 - 5.5 mmol/L LAB CHEMISTRY METHOD 06/06/2024 12:50 PM EDT [facility] Chloride 100 96 [...] CHEMISTRY METHOD 06/06/2024 12:50 PM EDT [facility] ([facility]) [facility] Total Bilirubin 0.4 0.0 - 1.4 mg/dL LAB CHEMISTRY METHOD 06/06/2024 12:50 PM EDT [facility] ([facility]) [facility] Blood Venous blood specimen / Unknown Venipuncture / Unknown 06/06/2024 7:22 AM EDT 06/06/2024 9:08 AM EDT us Krishan Sotelo MD LAB BLOOD ORDERABLES Final Resul t [facility] ([facility]) [facility] [address] [place] [address], from Last 3 Months or Most Recently Relevant to Health Maintenance Insurance [employer] MEDICARE [place]ICA[place] - [place] Advance Directives Documents on File Type Date 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
--- OUTSIDE RECORDS SUMMARY | 2025-01-25 20:33 | XMS_ITS | Clinical Summary ---
Author Organization [facility] Address [address] [place] [address] Phone Care Team Providers Care Online Merchandising Coordinator Name Role Phone Rita Fierro MD [...] topic Medical Devices Not on file Insurance [facility] CARE MEDICARE REPLACEMENT Member Subscriber Plan / Payer (Ef fective 2021-Present) Name:Romaine Longoria Relation to Subscriber:Self Name:Romaine Longoria Payer ID:[id number] (NAIC) Group ID:[id number] Type:Medicare [address]: [address] [facility] ONE CARE MEDICARE REPLACEMENT [place] [address] [address] [place] [address] CARE MEDICARE REPLACEMENT [facility] CARE MEDICARE REPLACEMENT [facility] CARE MEDICARE REPLACEMENT [facility] CARE MEDICARE REPLACEMENT [facility] CARE MEDICARE REPLACEMENT [facility] ONE CARE MEDICARE REPLACEMENT JULIET VALDIVIA [facility] Advance Directives For more information, please contact: [phone] (9AM - 5PM 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 It is not the complete legal health record.[facility]
--- OUTSIDE RECORDS SUMMARY | 2025-01-25 20:33 | XMS_ITS | Encounter Summary ---
Author Organization [facility] Prior to 07/09/[address] [place] [address] Care Team Providers Care Manager Packaging Name Role Phone Rita Fierro MD Primary Care Provide r Encounter Details Date Type Department Care Team Description 02/21/2022 Social Work [facility] Oncology Services [address] [place] [address] Ramon Hoskins, [facility] Social History Tobacco Use Types Packs/Day Years [...] on filedocumented in this encounter Care Teams Manager Packaging Relationship Specialty Start Date End Date Rita Fierro MD [address] [place] [address] PCP - General Internal Medicine 08/02/16 documented as of this encounter
== END 2025-01-25 09:35 | disposition home or self-care (01) ==
LOC: HO.XRAY 09:34
PROVIDERS: PCP Nurse Practitioner Family; Visit Provider Nurse Practitioner Family
DX: Z01.818 Encounter for other preprocedural examination (principal); C61 Malignant neoplasm of prostate; C77.2 Secondary and unspecified malignant neoplasm of intra-abdominal lymph nodes; M86.9 Osteomyelitis, unspecified; J43.1 Panlobular emphysema; F17.210 Nicotine dependence, cigarettes, uncomplicated
CPT/HCPCS: 71046; 99212

== ENCOUNTER 2025-01-25 09:34 | Outpatient (AMB) | payer MEDICARE, MEDICAID, SELFPAY ==
--- NOTE | 2025-01-25 09:38 | A.OFFPC_ITS ---
Vital Signs 3 01/25/25 09:44 Height 5 ft 11 in Weight 211 lb 8 oz BMI 29.5 BP 132/74 Blood Pressure Location Lt brachial Position Sitting Respiration 13 Pulse 77 Pulse Source Pulse Oximeter Temp 97.3 F Temp Source Oral Pulse Oximetry (%) 95 Oxygen Delivery Method Room Air Intake Visit Reasons: Possible amputation & bone biopsy /[facility] podiatry Intake Note: Pre op for surgery on 01/27/25 on left foot. Managing Cognitive Engineer Required: No Allergies No Known Allergies Allergy (Verified 01/25/25 12:30) Medication List - Last Reconciled 01/25/25 by Maya Bullard, [facility]- acamprosate 666 mg (2 x 333 mg) PO TID alcohol swabs (Alcohol Prep Pads) topically; use 1 prep pad to clean skin prior to injections up to 5 x daily aspirin (Ecotrin Low Strength) 81 mg PO DAILY atorvastatin 10 mg PO BEDTIME bicalutamide 50 mg PO DAILY 90 days blood sugar diagnostic (Accu-Chek Guide test strips) use once daily As directed to monitor blood sugars blood-glucose meter (Accu-Chek Guide Glucose Meter) Use once daily As directed to monitor blood sugars blood-glucose sensor (Index G7 Sensor device) Use daily As directed cephalexin 500 mg PO QID 7 days doxycycline hyclate 100 mg PO BID 7 days dulaglutide (Trulicity) 0.75 mg (0.5 mL) subcut QWEEK fluticasone propion-salmeterol 250-50 mcg/dose 1 ea inhalation BID fluticasone propionate 50 mcg/actuation 1 spray intranasal DAILY folic acid 1 mg PO DAILY insulin glargine (Lantus Solostar U-100 Insulin) 14 units (0.14 mL) subcut BEDTIME lancets (Accu-Chek Softclix Lancets) use once daily As directed to monitor blood sugars levofloxacin 250 mg PO DAILY levothyroxine 200 mcg PO DAILY@0600 losartan 50 mg PO DAILY metformin 500 mg PO BID metoprolol succinate ER 50 mg PO DAILY mometasone 0.1% 1 appl topical DAILY montelukast 10 mg PO DAILY omeprazole 20 mg PO DAILY@0630 pen needle, diabetic Use daily As directed pregabalin 75 mg PO BID sertraline 100 mg PO DAILY tamsulosin (Flomax) 0.4 mg PO BEDTIME zinc oxide 20% 1 ea topical DAILY Tobacco use date assessed: 01/25/25 Dental Screening Dental Screen Date: 01/25/25 Did you have a dental visit in the last 12 months?: Yes Did you have a dental problem in the last 6 months where you did not have access to dental care?: No Was dental information given to patient?: Patient has dentist HPI HPI Comments 2 History of Present Illness0 Details [facility] 59 y/o M with alcohol abuse hx of DT wit hdrawl (currently sober), CKD3, DM with complication, polyneuropathy, pulmonary hypertension, PVD with plantar ulceration on the left foot, current smoker, obesity , hx of MRSA pneumonia and hypoxic resp. failure requiring intubation, HLD, hypothyroid, LISA, MDD, GERD, CAD, anemia , Mild changes of small vessel ischemia, Hepatomegaly and steatosis, Diverticular disease, sigmoid colon, Fat-containing umbilical hernia, CHF, aortic root dilation, Hx of prostate Ca with recurrence of metastatic dz (2024), COPD, gout, hydrocele, malignant tumor of neck s/p resction and radiation, spinal stenosis, eczema, family hx colon ca (mom), hx of osteomyelitis L foot s/p tonsillectomy, aspiratin of spermatocele Fhx: Dad with CAD, Mom with colon ca; Bro and Sister w/ cancer Health Maintenance Tdap 2024 Flu 11/25/24 Colon referred to [facility] GI today; unsure of last colon long time ago i have requested records from [facility] Lung Ca screening referred to program at [facility] today DM eye 10/2024 negative retinopathy [facility] 10/12/24 [facility] History of Present Illness The patient is a 59-year-old male presenting for a pre-operative visit for a planned possible amputation and bone biopsy of the left foot. 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 - The foot has three infections, includi ng MRSA. - He is scheduled for a possible amputat ion and bone biopsy on 01/27. Planned Procedures 1. Excisional debridement of left foot u lcer 2. Thorough irrigation and washout of le ft foot ulcer 3. Resection of infected bone 4. Bone biopsy and deep tissue cultures Yeny Loo DPM Headaches: - Over the past week, he has experienced severe headaches when lying down to sleep. - The headaches are relieved by rubbing the area, and he feels fine when he is up and moving about. - He also reports feeling awkward with his balance. but this has been ongoing for some time. - He denies any red flag sx. He remains sober. Metastatic prostate ca: - The patient has an appointment with Dr Jen Vigil for follow-up scheduled on 01/27, too, which he wont be able to attend. Scan reviewed done at [facility]. + disease; message sent to Dr Vigil's office to coordinate f/u which was completed today after his visit w/ me. Diabetes Mellitus: - The patient reports his blood glucose was around 156, but had climbed to the 200s, possibly 240-250, in the morning. ROS: Denies fever, chills, sore throat, known sick contacts, cough, red flag sx assoc w/ headache. Past Medical History - Cerebrovascular accident: Occurred at an unknown time. - Alcohol use: Patient is sober and repo rts not drinking. Any past surgical procedures: Y Any complications from anesthesia or in post-op period: Denies ASA or NSAID Use: Y Current smoker: Y Alcohol use: N Drug use: Denies METs: < 4: vacuuming, ALD, eating, dressing Medical history: Asthma N COPD Y Obesity BMI 29.5 Diabetes Y A1c as below TN < 6 weeks, unstable angina, CHF, severe valve disease: CHF active w Cards Testing See below *CXR ordered and pending along with Type and Screen rest of labs reviewed and acceptable. Physical Exam General: Well developed, well nourished, in no acute distress. Appears stated age. Head: Normocephalic, atraumatic. Eyes: Pupils are equal, round and reactive to light and accommodation. Conjunctivae are clear. Ears: TM intact and clear bilat Nose: patent Pharynx: Clear Lungs: Dim throughout Heart: Regular rate and rhythm. No murmurs, click, rubs or gallops are noted. Musculoskeletal: Joints are nontender, without swelling, redness, or effusions. Pulses: Peripheral pulses are equal and palpable bilaterally. Chronic vascular changes and varicose veins BLE, DM ulcer bottom of L foot not examined today. Extremities: No clubbing, cyanosis. Trace pretibial edema LLE pt reports chronic Neuro: Nonfocal Psych: Mood and affect appropriate. Tearful when talking about holidays and potential cancer recurrence. Medical Decision Making The patient is a 59-year-old male with a complex medical history presenting for preoperative clearance for a left foot amputation and bone biopsy due to a chronic non-healing ulcer with osteomyelitis. Although his hang gliding instructor has some reservations, it is understood that the surgery is necessary. The patient's preoperative workup includes a chest x-ray, which has been ordered for today, along with labs which have already been completed. Surgical clearance is pending a normal chest x-ray result. The patient's elevated blood glucose levels are likely secondary to the significant foot infection. The patient's recent MRI revealed done to eval elevated PSA, showed some concerning findings that require follow-up with urology (Dr. Vigil), although the head imaging was reassuringly negative for any acute intracranial process, including new stroke. There is a scheduling conflict between his urology follow- up and the surgery, both on 01/27; therefore, I have messaged Dr. Vigil and will have the surgical team contact the patient to clarify the location of the procedure. This was done. Dr Vigil reviewed results w/ him today. Plan 1. Pre-Operative Evaluation - A chest x-ray was ordered and needs to be completed today. Remains pending at this time. - Required preoperative labs include a C BC with auto diff, CMP, A1c, PT/PTT, completed and acceptable. type and screen pending . - The patient will be cleared for surger y pending the results of the chest x- ray. - An EKG was previously completed by elias donnelly (see below). 2. Chronic Ulcer With Osteomyelitis Of L eft Foot - The patient is scheduled to proceed wi th possible amputation and bone biopsy of the left foot on 01/27. - The surgery scheduling team will be co ntacted to call the patient and clarify the location for the procedure. - [facility] 3. Prostate Ca: - The patient needs to follow up with Dr Jen Vigil to discuss results (done). - A message was sent to Dr. Vigil regard ing the patient's surgery and the need to reschedule his follow-up appointment. - Dr. Vigil's office will be asked to ca ll the patient to arrange a new appointment time. 4. Headaches - A recent head MRI showed no new stroke or acute intracranial pathology, which is reassuring. 5. Diabetes Mellitus - High blood glucose readings are noted, which are likely exacerbated by the ongoing foot infection. - An A1c level is included in the preope rative lab orders. Consent Patient was informed and verbally consented to the use of an ambient scribe for clinic note documentation during this visit. Total time spent caring for the patient today was 69 minutes. This includes time spent before the visit reviewing the chart, time spent during the visit, and time spent after the visit on documentation, reviewing laboratory results, diagnostic imaging, medications, performing a medically necessary evaluation, counseling on diagnoses, care coordination, ordering appropriate tests, ordering appropriate medications, review of tests performed by other providers, reporting test results with the patient, communication with other healthcare providers. [facility] Medical History (Updated 01/25/25 @ 15:03 by Maya Bullard [facility]) Alcohol abuse, in remission Anxiety with depression CAD (coronary artery disease) CKD (chronic kidney disease) COPD (chronic obstructive pulmonary disease) Diabetes mellitus Diabetic ulcer of left foot Diverticular disease Fatty liver Foot osteomyelitis, left Foot ulcer, left GERD (gastroesophageal reflux disease) History of alcohol withdrawal delirium History of MRSA infection of lungs History of osteomyelitis HTN (hypertension) Hx of gout Hydrocele Hypothyroid Nasal septal defect Prostate CA Prostate cancer Spinal stenosis Throat cancer Umbilical hernia Surgical History H/O excision of mass History of surgery on lower extremity Family History Father No problems noted. Mother No problems noted. Social History Household Members: None Housing: House Do you presently have visiting nurse or other home services: Yes Alcohol intake: current Alcohol intake frequency: 3 or more drinks per day Alcohol type: beer Comment: 1:1 sitter Patient Tobacco Use Status: Current everyday Tobacco user Tobacco use type: Cigarette Cigarettes Per Day: 10 e-Cigarette/Vaping Use: Never Used Second Hand Smoke Exposure: No Advance Directives Date on File: 06/06/24 service: No Current occupational status: retired Current occupational exposures/hazards: No Cognitive needs: No Hearing needs: No Vision needs: No Questionnaire PHQ-9 Over the last 2 weeks, how often have you been bothered by any of the following problems? 49989 - PHQ-9 Billing: Patient declined-do not bill Source: Developed by Drs. Darin Kim, Donna Higgins, Jose Nicole and colleagues, with an educational felisha from [employer]. Thrive Questionnaire Date Thrive assessed: 01/25/25 I am a: Patient What is your living situation today?: I have a steady place to live Within the past 12 months, did the food you bought not last and you didn't have the money to get more?: Often true Within the past 12 months, did you worry whether your food would run out before you got money to buy more?: Often true Do you have trouble paying for medicines?: Yes Do you have trouble getting transportation to medical appointments?: Yes Do you have trouble paying your heating and electricity bill?: Yes Do you have trouble taking care of your child, family member or friend?: No Do you have trouble with day-to-day activities such as bathing, preparing meals, shopping, managing finances, etc.?: No Are you currently unemployed and looking for a job?: Yes Are you interested in more education?: Yes Currently or been in a relationship where the following occur: No concerns reported THRIVE Score: 4 LISA-7 AMB Questionnaire LISA-7 Date LISA - 7 assessed: 11/25/24 Source: Developed by Drs. Darin Kim, Donna Higgins, Jose Nicole and colleagues, with an educational felisha from [employer]. Physical exam (Primary Care) Vital Signs: Last Vital Signs Temp 97.3 F 01/25/25 09:44 Pulse 77 01/25/25 09:44 Resp 13 01/25/25 09:44 BP 132/74 01/25/25 09:44 Pulse Ox 95 01/25/25 09:44 Oxygen Delivery Method Room Air 01/25/25 09:44 BMI result Body Mass Index 29.5 Tobacco/Smoking Status: Tobacco use Status Tobacco use date assessed 01/25/25 01/25/25 09:42 Patient Tobacco Use Status Current everyday Tobacco 01/25/25 09:42 Tobacco use type Cigarette 01/25/25 09:42 e-Cigarette/Vaping Use Never Used 01/25/25 09:42 Thrive Assessment: Date of Thrive Assessment Date Thrive assessed 01/25/25 01/25/25 09:42 Currently or been in a relationship where the following occur: No concerns reported Results Reviewed Results Reviewed: ENTERED: 01/17/25-[address] [facility] [address]: Yeny Campa DPLiana ORDERED: CBC No Diff Test Result Flag Reference WBC 8.5 4.8-10.8 X10*3/uL RBC 4.03 L 4.60-5.80 X10*6/uL HGB 11.9 L 14.0-18.0 g/dl HCT 36.6 L 42.0-52.0 % MCV 90.8 80.0-98.0 fL MCH 29.5 27.0-33.0 pg MCHC 32.5 31.0-36.0 g/dl RDW 14.0 11.0-16.0 % PLT 196 # 160-400 X10*3/uL MPV 10.3 9.4-12.4 fL NRBC Pct Auto 0.0 0.0-0.2 /100WBC NRBC Abs Auto 0.000 0.0-0.012 X10*3/uL Test Result Flag Reference PT* 12.1 11.2-13.5 SEC INR 1.0 0.9-1.1 INTERNATIONAL NORMALIZED RATIO (INR) REFERENCE RANGES Reference Range For patients not on anticoagulant therapy: 0.9 - 1.1 INR ranges for oral anticoagulant therapy: For prevention and treatment of venous thrombosis and pulmonary embolism: 2.0 - 3.0 For acute myocardial infarction with aspirin therapy: 2.0 - 3.0 For acute myocardial infarction without aspirin therapy: 3.0 - 4.0 For patients with mechanical prosthetic heart valves: 2.5 - 3.5 PTT 31.9 26.7-34.1 SEC Sodium 134 L 135-145 mmol/L Potassium 4.9 3.3-5.1 mmol/L CL 98 96-108 mmol/L CO2 28 22-29 mmol/L Gap 13 12-20 BUN 23 H 9-16 mg/dL Creat 1.43 H 0.5-1.4 mg/dL Estimated CrCl Test not performed Unable to calculate eCrCL; all parameters not provided. eGFR 50 Chronic Kidney Disease: Estimated GFR < 60 mL/min/1.73m2 Severe Kidney Disease: Estimated GFR < 15 mL/min/1.73m2 Glucose, Random 139 H 60-115 mg/dL CA 9.9 # 8.4-10.2 mg/dL Total Bili 0.5 0.0-1.0 mg/dL AST (GOT) 28 5-37 U/L ALT (GPT) 135 H 0-40 U/L Protein, Total 7.2 6.5-8.0 g/dL Alb 4.2 3.5-5.0 g/dL Alk Phos 113 39-117 U/L Coding Level of Care Code Est Pt Level 5 (39622) Add On Problem Visit Only Diagnoses Pre-op exam Z01.818 Prostate cancer metastatic to intraabdominal lymph node C61; C77.2 Foot osteomyelitis, left M86.9 Panlobular emphysema J43.1 COPD type: emphysema Emphysema type: panlobular Current smoker F17.200 CPT Codes [facility] OUTPT/OFFICE VIS - G2212 Assessment & Plan Assessment & Plan (1) Pre-op exam: Comment: Medically cleared based on current available lab results; CXR is pending however he does not exhibit any signs of pulmonary disease at the time of the visit. He is at risk given his complex medical history. Code(s): Z01.818 - Encounter for other preprocedural examination Category: Medical (2) Prostate cancer metastatic to intraabdominal lymph node: Code(s): C61 - Malignant neoplasm of prostate; C77.2 - Secondary and unspecified malignant neoplasm of intra-abdominal lymph nodes Category: Medical (3) Foot osteomyelitis, left: Code(s): M86.9 - Osteomyelitis, unspecified Category: Medical (4) COPD (chronic obstructive pulmonary disease): Code(s): J44.9 - Chronic obstructive pulmonary disease, unspecified Category: Medical Qualifiers: COPD type: emphysema Emphysema type: panlobular Qualified Code(s): J 43.1 - Panlobular emphysema (5) Current smoker: Comment: referred to lung ca screening Code(s): F17.200 - Nicotine dependence, unspecified, uncomplicated Category: Social Hx Plan , Medications: Discontinued 2 levofloxacin Discontinued Reason: Patient Completed Course 250 mg PO DAILY 7 tabs 0RF cephalexin Discontinued Reason: Order 500 mg PO QID 7 days 28 caps 0RF doxycycline hyclate Discontinued Reason: Patient Completed Course 100 mg PO BID 7 days 14 tabs 0RF
[2025-01-25 09:44] VITALS: BP 132/74; PULSE 77; RESP 13; TEMP 36.3; O2SAT 95; BMI 29.5
--- OUTSIDE RECORDS SUMMARY | 2025-01-25 11:02 | XMS_ITS | Encounter Summary ---
Author Organization [facility] Address [address] [place] [address] Care Team Providers Care Health Commissioner Name Role Phone Rita Fierro MD Primary Care Provide r Encounter Details Date Type Department Care Team (Late st Contact Info) Description 06/08/2024 Lab Requisition [facility] - Main Lab [address] [facility] [place] [address] Krishan Sotelo MD [address] [place] [address] [address] [place], [address] Type 2 diabetes mellitus without complications [...] 2 diabetes mellitus without complications (CMS/HCC V24, CMS/[facility] V28) documented in this encounter Results * (ABNORMAL) Hemoglobin A1c (06/08/2024 7:34 AM EDT) Hemoglobin A1C 7.1(H) <6.5 % LAB CHEMISTRY METHOD 06/08/2024 12:47 PM EDT [facility] ([facility]) [facility] Mean Bld Glu Estim. 157 mg/dL LAB CHEMISTRY METHOD 06/08/2024 12:47 PM EDT [facility] Blood Venous blood specimen / Unknown Venipuncture / Unknown 06/08/2024 7:34 AM EDT 06/08/2024 10:04 AM EDT us Krishan Sotelo MD LAB BLOOD ORDERABLES Final Resul t [facility] [address] [place] [address], documented in this encounter Visit Diagnoses Diagnosis Type 2 diabetes mellitus without complications (CMS/HCC V24, CMS/HCC V28) documented in this encounter Care Teams Health Commissioner Relationship Specialty Start Date End Date Rita Fierro MD [address] [place] [address] [place] PCP - General Internal Medicine 08/02/16 documented as of this encounter
--- OUTSIDE RECORDS SUMMARY | 2025-01-25 11:02 | XMS_ITS | Clinical Summary ---
Author Organization [facility] Prior to 07/09/24 Address [address] [place] [address] Care Team Providers Care It Operations Analyst Name Role Phone Rita Fierro MD Primary [...] age to complete this topic Care Teams It Operations Analyst Relationship Specialty Start Date End Date Rita Fierro MD [address] [place] [address] [place] [address] PCP - General Internal Medicine 08/02/16
--- OUTSIDE RECORDS SUMMARY | 2025-01-25 11:03 | XMS_ITS | Clinical Summary ---
Author Organization [facility] Address [address] [place] [address] Phone Care Team Providers Care Therapist Name Role Phone Rita Fierro MD [...] topic Medical Devices Not on file Insurance [facility] CARE MEDICARE REPLACEMENT Member Subscriber Plan / Payer (Ef fective 2021-Present) Name:Romaine Longoria Relation to Subscriber:Self Name:Romaine Longoria Payer ID:[id number] (NAIC) Group ID:[id number] Type:Medicare [address]: [address] [facility] CARE MEDICARE [place] [address] [place] [address] [address] [place] [place] [address] CARE MEDICARE REPLACEMENT [facility] CARE MEDICARE REPLACEMENT [facility] CARE MEDICARE REPLACEMENT [facility] CARE MEDICARE REPLACEMENT [facility] CARE MEDICARE REPLACEMENT [facility] ONE CARE MEDICARE REPLACEMENT JULIET VALDIVIA [facility] Advance Directives For more information, please contact: [phone] (9AM - 5PM 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 It is not the complete legal health record.[facility]
--- OUTSIDE RECORDS SUMMARY | 2025-01-25 11:03 | XMS_ITS | Clinical Summary ---
Author Organization [employer] Address [address] [facility] [address] [place] [address] Care Team Providers Care Dye Maker Name Role Phone Unavailable Primary Care Provider [...] patient's age [place] [id number] [facility] MEDICARE ADVANTAGE
--- OUTSIDE RECORDS SUMMARY | 2025-01-25 11:03 | XMS_ITS | Encounter Summary ---
Author Organization [facility] Address [address] [place] [address] Care Team Providers Care Evaporator Supervisor Name Role Phone Rita Fierro MD Primary Care Provide r Encounter Details Date Type Department Care Team (Late st Contact Info) Description 06/06/2024 Lab Requisition [facility] - Main Lab [address] [facility] [place] [address] Krishan Sotelo MD [address] [place] [address] [address] [facility] [phone] Essential (primary) hypertension; Type 2 [...] 2 diabetes mellitus without complications (CMS/HCC V24, [facility] V28) Metabolic encephalopathy Alcohol use, unspecified with withdrawal delirium ([facility] V24, [facility] V28) COMPREHENSIVE METABOLIC PANEL Routine 06/06/2024 7:22 AM EDT Essential (primary) hypertension Type 2 diabetes mellitus without complications ([facility] V24, [facility] V28) Metabolic encephalopathy Alcohol use, unspecified with withdrawal delirium ([facility] V24, [facility] V28) documented in this encounter Results * (ABNORMAL) CBC auto differential (06/06/2024 7:22 AM EDT) [facility] WBC 9.4 4.8 - 10.8 K/mcL [...] t [facility] [address] [place] [address], [place] [phone] * (ABNORMAL) Comprehensive metabolic panel (06/06/2024 7:22 [...] Final Resul t [facility] ([facility]) [facility] [address] [place] [address], [place] [phone] documented in this encounter Visit Diagnoses Diagnosis Essential (primary) hypertension Unspecified essential hypertension Type 2 diabetes mellitus without complications (CMS/[facility] V24, CMS/[facility] V28) Metabolic encephalopathy Alcohol use, unspecified with withdrawal delirium (CMS/[facility] V24, CMS/[facility] V28) documented in this encounter Care Teams Evaporator Supervisor Relationship Specialty Start Date End Date Rita Fierro MD [address] [place] [address] PCP - General Internal Medicine 08/02/16 documented as of this encounter
--- OUTSIDE RECORDS SUMMARY | 2025-01-25 11:03 | XMS_ITS | Encounter Summary ---
Author Organization [facility] Prior to 07/09/[address] [place] [address] Care Team Providers Care Laborer Egg Producing Farm Name Role Phone Rita Fierro MD Primary Care Provide r Encounter Details Date Type Department Care Team Description 02/21/2022 Social Work [facility] Oncology Services [address] [place] [address] Ramon Hoskins, [facility] Social History Tobacco Use Types Packs/Day Years [...] on filedocumented in this encounter Care Teams Laborer [employer] Relationship Specialty Start Date End Date Rita Fierro MD [address] [place] [address] PCP - General Internal Medicine 08/02/16 documented as of this encounter
--- OUTSIDE RECORDS SUMMARY | 2025-01-25 11:03 | XMS_ITS | Clinical Summary ---
Author Organization [address] [facility] Address [address] [place] [address] Phone Care Team Providers Care Property Controller Name Role Phone Rita Fierro MD [...] EDT Type 2 diabetes mellitus without complications ([facility] V24, [facility] V28) COMPREHENSIVE METABOLIC PANEL Routine 06/06/2024 7:22 AM EDT Essential (primary) hypertension Type 2 diabetes mellitus without complications ([facility] V24, [facility] V28) Metabolic encephalopathy Alcohol use, unspecified with withdrawal delirium ([facility] V24, [facility] V28) from Last 3 Months [...] t [facility] [address] [place] [address], * (ABNORMAL) Comprehensive metabolic panel (06/06/2024 7:22 [...] LAB CHEMISTRY METHOD 06/06/2024 12:50 PM EDT [facility] ([facility]) [facility] Total Bilirubin 0.4 0.0 - 1.4 mg/dL LAB CHEMISTRY METHOD 06/06/2024 12:50 PM EDT [facility] ([facility]) [facility] Blood Venous blood specimen / Unknown Venipuncture / Unknown 06/06/2024 7:22 AM EDT 06/06/2024 9:08 AM EDT us Krishan Sotelo MD LAB BLOOD ORDERABLES Final Resul t [facility] ([facility]) [facility] [address] [place] [address], from Last 3 Months or Most Recently Relevant to Health Maintenance Insurance [employer] MEDICARE MEDICAID - [place] Advance Directives Documents on File Type Date Recorded 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
== END 2025-01-25 11:22 | disposition home or self-care (01) ==
LOC: HO.HMCFM 09:35
PROVIDERS: PCP Nurse Practitioner Family; Visit Provider Nurse Practitioner Family
DX: Z01.818 Encounter for other preprocedural examination (principal); C61 Malignant neoplasm of prostate; C77.2 Secondary and unspecified malignant neoplasm of intra-abdominal lymph nodes; M86.9 Osteomyelitis, unspecified; J43.1 Panlobular emphysema; F17.200 Nicotine dependence, unspecified, uncomplicated

== ENCOUNTER 2025-01-25 12:22 | Outpatient (AMB) | payer MEDICARE, MEDICAID, SELFPAY ==
--- NOTE | 2025-01-25 12:27 | MHC.OFFVIS ---
Intake Visit Reasons: Discuss Results Intake Note: Reason for Visit: Telephone PSMA Results Urology Meds: Bicalutamide Blood Thinners: Aspirin Labs: BUN: 23 Creatinine: 1.43(01/17/25) PSA: 142.94(10/25/24) Imaging: PSMA 01/16/2025 Last PVR: None Revenue Director Required: No Accompanied by: Self / Same As Patient Allergies No Known Allergies Allergy (Verified 01/25/25 12:30) HPI Comments Details: Romaine is a pleasant male. He is a patient of Dr. Andersen. He is seen for the following urologic conditions - prostate cancer - rising PSA following treatment Telemedicine Evaluation 15 min Consultation DoxSoLatina Irma Video PET-CT complete - no evidence of bony metastases however he has enlarged lymph nodes through his a order up into his paratracheal system. Recommend initiation of GnRH with antiandrogen for 2-3 years PSA 11/03 143 2 week GnRH, three-month lab work Prostate cancer initial therapy external beam radiation Patient states he had treatment at [facility] with external beam radiation number of years ago Dropped out of follow-up Can not remember his last PSA Significant comorbidities include nicotine dependence with poorly controlled diabetes, CKD 3, depression, vasculopathy and alcohol dependence PFSH Medical History Diabetic ulcer of left foot Foot osteomyelitis, left Foot ulcer, left History of osteomyelitis Spinal stenosis Hydrocele Hx of gout Umbilical hernia Diverticular disease History of MRSA infection of lungs History of alcohol withdrawal delirium Anxiety with depression Critical illness myopathy Nasal septal defect ETOH abuse Throat cancer Surgical History History of surgery on lower extremity H/O excision of mass Family History Father No problems noted. Mother No problems noted. Social History Household Members: None Housing: House Do you presently have visiting nurse or other home services: Yes Alcohol intake: current Alcohol intake frequency: 3 or more drinks per day Alcohol type: beer Comment: 1:1 sitter Patient Tobacco Use Status: Current everyday Tobacco user Tobacco use type: Cigarette Cigarettes Per Day: 10 e-Cigarette/Vaping Use: Never Used Second Hand Smoke Exposure: No Advance Directives Date on File: 06/06/24 service: No Current occupational status: retired Current occupational exposures/hazards: No Cognitive needs: No Hearing needs: No Vision needs: No Review of Systems Const All systems reviewed & are unremarkable except as noted in HPI and below Reports no additional complaints Resp Reports no additional complaints GI Reports no additional complaints Reports as per HPI Musc Reports no additional complaints Physical Exam Telemedicine evaluation Appropriate responses Regular breathing rate and rhythm HEENT Head: Yes normal to inspection Ears: hearing grossly normal bilaterally Eyes General: appearance normal, both eyes and all related structures Neck Neck: Yes normal visual inspection Chest Chest palpation & inspection: normal inspection of the chest Resp Effort & Inspection: normal respiratory effort and able to speak in complete sentences Telehealth Telehealth Telehealth Platform: Telephone Location of provider rendering services: practice address Location of patient: address on file Patient Identification confirmed using: Name, : Yes Telehealth method: voice only Patient verbally consented to treatment: Yes Patient verbally consented to billing insurance company: Yes Patient informed of any privacy concerns related to visit: Yes Assessment & Plan Assessment & Plan (1) Prostate cancer metastatic to intraabdominal lymph node: Code(s): C61 - Malignant neoplasm of prostate; C77.2 - Secondary and unspecified malignant neoplasm of intra-abdominal lymph nodes Category: Medical Plan Initiate GnRH Start antiandrogen Three-month follow-up lab work Orders: Orders Testosterone, Total 3 Months C61 - Malignant neoplasm of prostate, C77.2 - Secondary and unspecified malignant neoplasm of intra-abdominal lymph nodes Prostate Specific Antigen 3 Months C61 - Malignant neoplasm of prostate, C77.2 - Secondary and unspecified malignant neoplasm of intra-abdominal lymph nodes Medications: New abiraterone must be taken on empty stomach, at least 1 hr before or 2 hrs after a meal/food 1,000 mg (4 x 250 mg) PO DAILY 120 tabs 5RF 30 days C61 - Malignant neoplasm of prostate, C77.2 - Secondary and unspecified malignant neoplasm of intra-abdominal lymph nodes, R97.21 - Rising PSA following treatment for malignant neoplasm of prostate prednisone 2.5 mg PO BID 60 tabs 5RF 30 days C61 - Malignant neoplasm of prostate, C77.2 - Secondary and unspecified malignant neoplasm of intra-abdominal lymph nodes, C79.51 - Secondary malignant neoplasm of bone Patient Instructions: This note is constructed using voice recognition software. While every effort has been made to ensure accuracy director process improvement errors may have been included. Imaging studies, laboratory and physical exam results were discussed and reviewed in detail. No major barriers to patient understanding were identified. An opportunity to ask questions regarding the treatment plan was provided. All questions were answered. The patient expressed understanding and agreement with the above treatment plan. The patient is aware they should contact our office by phone for worsening of their current condition or the appearance of new urologic symptoms. Compliance is encouraged with any medications and followup testing that is ordered. It is a privilege to participate in the urologic care of your patient. If you have any questions or concerns regarding treatment for the above conditions, or other urologic issues, please do not hesitate to contact me. The office telephone contact is [phone]. Sincerely, Dr Alexys Vigil MD, [facility] - Urology Compassionate Specialist Care for the Genitourinary System Coding Level of Care Code Tele Est Pt Level 4 (80736) Add On Problem Visit Only Diagnoses Prostate cancer metastatic to intraabdominal lymph node C61; C77.2
--- OUTSIDE RECORDS SUMMARY | 2025-01-25 16:14 | XMS_ITS | Data Portability ---
Author Organization [facility] [place] [facility] [place] [facility] Address [address] [place] [address] Care Team Providers Care Blue Leather Setter Name Role Phone [facility] Referring Provider [phone] Assessment Encounter Date Assessment Date Assessment LastModified [...] a four hour ED wait time. VSS. Vocational Education Professional on site reports that he has tense [...] come and go. Upon presentation with the photographer he was found to have an O2 [...] Assessment and Plan as documented by the Vocational Education Professional. I provided real-time medical direction via phone [...] (A+B) 2022 023 [email or web address] Main - [facility], [address] [place] [address], [phone] 17:54:47 rapid SARS CoV 2 Ag, QL IA, respiratory specimen 2022 023 [email or web address] [facility], [address] [place] [address], [phone] 3 17:54:47 Referral None recorded. Procedures None recorded. Surgeries None recorded. Imaging None recorded. Medication Orders furosemide 20 mg tablet 2022 023 [facility] #[id number], [address] [place], [address], 3 15:12:40 Patient TargetsNo targets recorded. Patient InstructionsNo instructions recorded. Reason for Referral None Reported. Results Created Date Observation Date Name Description Value Unit Range Abnormal Flag Note LastModifiedBy Organization Detail LastModifiedTime 02/25/1902/25/2022 rapid SARS CoV 2 Ag, QL IA, respi rator y speci men rapid SARS CoV 2 Ag, QL IA, respiratory specimen negati ve Not Available [facility] [address] [place] [address], [phone] 02/25/2022 13:55:18 02/25/19 23 02/25/2022 rapid flu (A+B) Flu negati ve Not Available [facility] [address] [place] [address], [phone] 02/25/2022 13:55:16 Result Notes None recorded. Medical [...] Details Last Updated DateTime 3 98.1 [degF] 092419. 16 g 16 /min 93 % 86 /min 86 /min 16 /min 98.1 [degF] 93 % 888939. 16 g 139/87 mm[Hg] 139/87 mm[Hg] Not Available [employer] [employer] - production 3 15:31:07 Date Recorded Body weight Respiratory rate Oxygen saturation Body temperature Heart rate Body temperature Heart rate Body weight Respiratory rate Oxygen saturation Systolic And Diastolic Systolic And Diastolic Provider Name and Address Organization Details Last Updated DateTime 3 009147. 08 g 14 /min 96 % 97.5 [degF] 75 /min 97.5 [degF] 75 /min 507063. 08 g 14 /min 96 % 141/78 mm[Hg] 141/78 mm[Hg] Not Available [employer] - production 3 17:28:39 Date Recorded Body temperature Heart rate Oxygen saturation Respiratory rate Heart rate Body temperature Oxygen saturation Respiratory rate Systolic And Diastolic Systolic And Diastolic Provider Name and Address Organization Details Last Updated DateTime 2 99.1 [degF] 98 /min 96 % 18 /min 98 /min 99.1 [degF] 96 % 18 /min 155/77 mm[Hg] 155/77 mm[Hg] Not Available [facility] - [facility] 2 14:34:47 Date Recorded Respiratory rate Heart rate Oxygen saturation Systolic And Diastolic Provider Name and Address Organization Details Last Updated DateTime 12/12/2021 18 /min 86 /min 95 % 129/58 mm[Hg] Not Available [facility] [facility] 2 18:28:42 Social History None recorded. Functional Status None recorded. Mental Status None recorded. Family History Nothing Reported. Medical History No medical history recorded. Past Encounters Encounter ID Performer Location Encounter Start Date Encounter Closed Date Diagnosis/Indication Diagnosis SNOMED-CT Code Diagnosis ICD10 Code Diagnosis IMO Codes Diagnosis Note [id number] Nathaniel Mcconnell MD Main - [facility] [address] [place] [phone] 08/06/2021 17:15:40 10/15/2021 12:14:09 Altered mental status 311660885 R41.82 [id number] Lisa Dickson MD Main - [facility] [address] [place], [place] [phone] 11/08/2021 13:18:37 11/08/2021 15:39:12 [id number] Kristy Mosley MD Main - [facility] [address] [place], [place] [phone] 12/12/2021 18:28:35 12/13/2021 14:59:56 Congestive heart failure 48899276 I50.9 56y M with CHF and chronic [...] Sienna Alatorre MD Main - [facility] [address] [place] [address] 0 02/25/2022 13:53:52 03/04/2022 15:28:58 Hypoxia 297380309 R09.02 Congestive heart failure 26880300 I50.9 [id number] Nathaniel Mcconnell MD Main - [facility] [address] [place] [address] 0 04/23/2022 15:08:35 04/25/2022 10:49:48 Swelling of bilateral lower limbs 350179512 M79.89 [id number] Kristy Mosley MD Main - [facility] [address] [place], [place] [phone] 06/25/2022 17:15:30 06/26/2022 10:04:11 Dizziness [id number] R42 As noted, we were called to see this patient regarding concerns of dizziness. Evaluation in the field was performed by my photographer colleague, as noted above, I provided real-time [...] Holm Member ID Guarantor Name 03/29/2024 1 [facility] - DOS PRIOR TO 2022 - DUAL ELIGIBLE (MEDICARE REPLACEMENT/ADV ANTAGE - HMO) Romaine Longoria [id number] Romaine Longoria 03/29/2024 1 [facility] - DOS ON OR AFTER 2022 - DUAL ELIGIBLE - RETIREMENT OPTIONS AND ONE CARE (MEDICARE REPLACEMENT/ADV ANTAGE - HMO) Romaine Longoria [id number] Romaien Longoria Notes Date Note Type Note Provider [...] .................... .................... .................... .................... .................... .................... . Vocational Education Professional Note: Sent to evaluate pt with poly [...] resolves with rest. Pt denies hx of ID/CHF. Pt states urinary incontinence mentioned in intake note is chronic since prostate CA surgery and denies dysuria. Performed 12 lead and uploaded images to [employer] [facility]. Consulted [facility] who ordered POC CMP and then 20mg [...] Lisa Dickson MD [address], [place], [phone], [employer] 11/08/2021 15:39:10 12/12/2021 text/html HPI: Member discharged from [facility] on 11/22/21 for CHF exacerbation, started on HCTZ-Lisinopril. member reports was put on 1500mL fluid restriction. Member hasnt been drinking fluids and reports feeling dehydrated, throat dry mouth, tired and sleepy. BP taken twice 96/64, 102/72. Member will need evaluation .................... .................... .................... .................... .................... .................... .................... . CRC Nursing Assessment: Comments: CRC RN DID NOT NEED FURTHER INFO [facility] HPI: recent admission to hospital for CHF [...] Kristy Mosley MD [address], [place], [phone], [employer] 12/12/2021 18:46:47 02/25/2022 text/html HPI: Romaine is [...] .................... .................... .................... .................... .................... .................... . Vocational Education Professional Note: Sent to evaluate pt with several [...] covid and rapid flu both negative. Consulted [facility] who agreed with this assessment that pt would benefit from further eval/imaging at ER. Placed 20g in L hand and activated EMS. Pt care transferred to [facility] and pt to be transported to [facility] ER. .................... .................... .................... .................... .................... .................... .................... . Disposition: Fulfilled Sienna Alatorre MD [address] [facility],[address], [place], [address], [employer] 10/28/2022 17:55:02 04/23/2022 text/html HPI: 56 y/o with reports of 1 week of increased LE swelling, erythema, warmth, abrasions, fatigue. R/o LE cellulitis. .................... .................... .................... .................... .................... .................... .................... . CRC Nursing Assessment: Comments: Reviewed - Ryder CABALLERO .................... .................... .................... .................... .................... .................... .................... . Vocational Education Professional Note From Jerome Walls: [employer] to the [...] 241, POC labs obtained and sent to [facility]. pt denied recent falls / trauma , pt legs knees to angles swollen bi - lateral, right leg was red, neither was warm to touch or open wounds or weeping. (+/=) CSMS and pulses, [facility] contacted and ordered 40mg Lasix SIVP the pt was given a prescription to get him to his PCP appointment next week, supportive care and when to call 911 discussed. (- ) adverse on to medication administration .................... .................... .................... .................... .................... .................... .................... . Disposition: Fulfilled Nathaniel Mcconnell MD [address] [place] [address],[address], [place], [phone], [employer] 07/24/2022 14:52:33 06/25/2022 text/html HPI: Romaine is a 56 y/o male, seen for VV today by IN STORE BANKER. Romaine reports earlier in the day he [...] no further information needed to process visit [facility] HPI: recurrent dizziness for past year. established w pcp. checked sugar only after eating. cbg 215. normal is 150-250 for him. no chest pain, shortness of breath. feeling better now. feels like one of his normal episdoes............ .................... .................... .................... .................... .................... .................... .......... Vocational Education Professional Note From Edis Colon: Pt complains of [...] . POC BGL 215mg/dI and pt afebrile. [facility] contacted who agreed that pts episode likely attributed to his diabetes and instructed pt to follow up with PCP Pt educated on S/SX that would indicate 911/ED visit and it was suggested that pt keep log of these episodes and what his BGL is during each. .................... .................... .................... .................... .................... .................... .................... . Disposition: Fulfilled Kristy Mosley MD [address] [place] [address],[address], [place], [phone], CAROL ANN PELLETIER 06/25/2022 17:32:07
== END 2025-01-25 13:42 | disposition home or self-care (01) ==
LOC: HO.HUSH 12:22
PROVIDERS: PCP Nurse Practitioner Family; Visit Provider Urology
DX: C61 Malignant neoplasm of prostate (principal); C77.2 Secondary and unspecified malignant neoplasm of intra-abdominal lymph nodes
CPT/HCPCS: 99214; G2211

== ENCOUNTER → 2025-01-25 15:44 | Outpatient (BNV) | payer MEDICARE, MEDICAID, SELFPAY | PROVIDERS: PCP Nurse Practitioner Family; Visit Provider Radiology Diagnostic Radiology | DX: Z01.818 Encounter for other preprocedural examination (principal); J98.6 Disorders of diaphragm; J98.4 Other disorders of lung | CPT/HCPCS: 71046 ==

== ENCOUNTER 2025-01-27 08:34 | Day surgery (SDC) | payer MEDICARE, MEDICAID, SELFPAY ==
--- OUTSIDE RECORDS SUMMARY | 2025-01-13 06:35 | XMS_ITS | Encounter Summary ---
Author Organization [facility] Prior to 07/09/[address] [place] [address] Care Team Providers Care Employee Relations Assistant Name Role Phone Rita Fierro MD Primary Care Provide r Encounter Details Date Type Department Care Team Description 02/21/2022 Social Work [facility] Oncology Services [address] [place] [address] Ramon Hoskins, [facility] Social History Tobacco Use Types Packs/Day Years [...] on filedocumented in this encounter Care Teams Employee Relations Assistant Relationship Specialty Start Date End Date Rita Fierro MD [address] [place] [address] PCP - General Internal Medicine 08/02/16 documented as of this encounter
--- OUTSIDE RECORDS SUMMARY | 2025-01-13 06:35 | XMS_ITS | Encounter Summary ---
Author Organization [facility] Address [address] [place] [address] Care Team Providers Care Technical Service Representative Name Role Phone Rita Fierro MD Primary Care Provide r Encounter Details Date Type Department Care Team (Late st Contact Info) Description 06/08/2024 Lab Requisition [facility] - Main Lab [address] [facility] [place] [address] Krishan Sotelo MD [address] [place] [address] [address] [place], [phone] Type 2 diabetes mellitus without complications [...] without complications (CMS/HCC V24, CMS/[facility] V28) documented in this encounter Results * (ABNORMAL) Hemoglobin A1c (06/08/2024 7:34 AM EDT) Hemoglobin A1C 7.1(H) <6.5 % LAB CHEMISTRY METHOD 06/08/2024 12:47 PM EDT [facility] ([facility]) [facility] Mean Bld Glu Estim. 157 mg/dL LAB CHEMISTRY METHOD 06/08/2024 12:47 PM EDT [facility] Blood Venous blood specimen / Unknown Venipuncture / Unknown 06/08/2024 7:34 AM EDT 06/08/2024 10:04 AM EDT us Krishan Sotelo MD LAB BLOOD ORDERABLES Final Resul t [facility] [address] [place] [address], documented in this encounter Visit Diagnoses Diagnosis Type 2 diabetes mellitus without complications (CMS/HCC V24, CMS/HCC V28) documented in this encounter Care Teams Technical Service Representative Relationship Specialty Start Date End Date Rita Fierro MD [address] [place] [address] [place] PCP - General Internal Medicine 08/02/16 documented as of this encounter
--- OUTSIDE RECORDS SUMMARY | 2025-01-13 06:35 | XMS_ITS | Clinical Summary ---
Author Organization [facility] Prior to 07/09/24 Address [address] [place] [address] Care Team Providers Care Communications Attendant Name Role Phone Rita Fierro MD [...] Tdap) 07/12/2020 07/12/2010 COVID-19 Vaccine ( - 2024- season) 2024 [...] age to complete this topic Care Teams Communications Attendant Relationship Specialty Start Date End Date Rita Fierro MD [address] [place] [address] [place] [id number] PCP - General Internal Medicine 08/02/16
--- OUTSIDE RECORDS SUMMARY | 2025-01-13 06:36 | XMS_ITS | Encounter Summary ---
Author Organization [facility] Address [address] [place] [phone] Care Team Providers Care Laborer Heading Name Role Phone Rita Fierro MD Primary Care Provide r Encounter Details Date Type Department Care Team (Late st Contact Info) Description 06/06/2024 Lab Requisition [facility] - Main Lab [address] [facility] [place] [address] Krishan Sotelo MD [address] [place] [address] [address] [facility] [phone] Essential (primary) hypertension; Type 2 diabetes [...] 2 diabetes mellitus without complications (CMS/HCC V24, [facility] V28) Metabolic encephalopathy Alcohol use, unspecified with withdrawal delirium ([facility] V24, [facility] V28) COMPREHENSIVE METABOLIC PANEL Routine 06/06/2024 7:22 AM EDT Essential (primary) hypertension Type 2 diabetes mellitus without complications ([facility] V24, [facility] V28) Metabolic encephalopathy Alcohol use, unspecified with withdrawal delirium ([facility] V24, [facility] V28) documented in this encounter Results * (ABNORMAL) CBC auto differential (06/06/2024 7:22 AM EDT) [facility] WBC 9.4 4.8 - 10.8 K/mcL LAB [...] LAB HEMETOLOGY METHOD 06/06/2024 10:49 AM EDT [facility] Eosinophils Absolute 0.57(H) 0.00 - 0.50 K/mcL LAB HEMETOLOGY METHOD 06/06/2024 10:49 AM T [facility] Basophils Absolute 0.10 0.00 - 0.20 K/mcL LAB HEMETOLOGY METHOD 06/06/2024 10:49 AM EDT [facility] Immature Granulocytes Absolute 0.11(H) 0.00 - 0.03 K/mcL LAB HEMETOLOGY METHOD 06/06/2024 10:49 AM T [facility] Blood Venous blood specimen / Unknown Venipuncture / Unknown 06/06/2024 7:22 AM EDT 06/06/2024 9:08 AM EDT us Krishan Sotelo MD LAB BLOOD ORDERABLES Final Resul t [facility] [address] [place] [address], [place] [phone] * (ABNORMAL) Comprehensive metabolic panel (06/06/2024 7:22 [...] LAB BLOOD ORDERABLES Final Resul t [facility] ([facility]) [facility] [address] [place] [address], [place] [phone] documented in this encounter Visit Diagnoses Diagnosis Essential (primary) hypertension Unspecified essential hypertension Type 2 diabetes mellitus without complications ([facility] V24, [facility] V28) Metabolic encephalopathy Alcohol use, unspecified with withdrawal delirium ([facility] V24, [facility] V28) documented in this encounter Care Teams Laborer Heading Relationship Specialty Start Date End Date Rita Fierro MD [address] [place] [address] PCP - General Internal Medicine 08/02/16 documented as of this encounter
--- OUTSIDE RECORDS SUMMARY | 2025-01-13 06:36 | XMS_ITS | Clinical Summary ---
Author Organization [employer] Address [address] [facility] 7[address] [place] [address] Care Team Providers Care Computer Information Science Professor Name Role Phone Unavailable Primary Care Provider [...] patient's age [id number] [facility] MEDICARE ADVANTAGE
--- OUTSIDE RECORDS SUMMARY | 2025-01-13 06:36 | XMS_ITS | Data Portability ---
Author Organization [facility] Address [address] [place] [address] Care Team Providers Care Sand Operator Name Role Phone [facility] Referring Provider [phone] Assessment Encounter Date Assessment Date Assessment LastModified [...] a four hour ED wait time. VSS. Fixture Designer on site reports that he has tense [...] come and go. Upon presentation with the route driver salesperson he was found to have an O2 [...] Assessment and Plan as documented by the Fixture Designer. I provided real-time medical direction via phone [...] flu (A+B) 2022 023 [email or web address] Main - [facility], [address] [place] [address], [phone] 17:54:47 rapid SARS CoV 2 Ag, QL IA, respiratory specimen 2022 [email or web address] [facility], [address] [place] [address], [phone] 3 17:54:47 Referral None recorded. Procedures None recorded. Surgeries None recorded. Imaging None recorded. Medication Orders furosemide 20 mg tablet 2022 023 [id number], [address] [place], [address], 3 15:12:40 Patient TargetsNo targets recorded. Patient InstructionsNo instructions recorded. Reason for Referral None Reported. Results Created Date Observation Date Name Description Value Unit Range Abnormal Flag Note LastModifiedBy Organization Detail LastModifiedTime 02/25/1902/25/2022 rapid SARS CoV 2 Ag, QL IA, respi rator y speci men rapid SARS CoV 2 Ag, QL IA, respiratory specimen negati ve Not Available [facility] [address] [place] [address], [phone] 02/25/2022 13:55:18 02/25/19 23 02/25/2022 rapid flu (A+B) Flu negati ve Not Available [facility] [address] [place] [address], [phone] 02/25/2022 13:55:16 Result Notes None recorded. Medical [...] Details Last Updated DateTime 3 98.1 [degF] 096144. 16 g 16 /min 93 % 86 /min 86 /min 16 /min 98.1 [degF] 93 % 311684. 16 g 139/87 mm[Hg] 139/87 mm[Hg] Not Available [employer] production 3 15:31:07 Date Recorded Body weight Respiratory rate Oxygen saturation Body temperature Heart rate Body temperature Heart rate Body weight Respiratory rate Oxygen saturation Systolic And Diastolic Systolic And Diastolic Provider Name and Address Organization Details Last Updated DateTime 3 433765. 08 g 14 /min 96 % 97.5 [degF] 75 /min 97.5 [degF] 75 /min 373963. 08 g 14 /min 96 % 141/78 mm[Hg] 141/78 mm[Hg] Not Available [employer] 3 17:28:39 Date Recorded Body temperature Heart rate Oxygen saturation Respiratory rate Heart rate Body temperature Oxygen saturation Respiratory rate Systolic And Diastolic Systolic And Diastolic Provider Name and Address Organization Details Last Updated DateTime 2 99.1 [degF] 98 /min 96 % 18 /min 98 /min 99.1 [degF] 96 % 18 /min 155/77 mm[Hg] 155/77 mm[Hg] Not Available [employer] 2 14:34:47 Date Recorded Respiratory rate Heart rate Oxygen saturation Systolic And Diastolic Provider Name and Address Organization Details Last Updated DateTime 12/12/2021 18 /min 86 /min 95 % 129/58 mm[Hg] Not Available [email or web address] 2 18:28:42 Social History None recorded. Functional Status None recorded. Mental Status None recorded. Family History Nothing Reported. Medical History No medical history recorded. Past Encounters Encounter ID Performer Location Encounter Start Date Encounter Closed Date Diagnosis/Indication Diagnosis SNOMED-CT Code Diagnosis ICD10 Code Diagnosis IMO Codes Diagnosis Note [id number] Nathaniel Mcconnell MD Main - [facility] [address] [place] [phone] 08/06/2021 17:15:40 10/15/2021 12:14:09 Altered mental status 720171844 R41.82 [id number] Lisa Dickson MD Main - [facility] [address] [place], [place] [phone] 11/08/2021 13:18:37 11/08/2021 15:39:12 [id number] Kristy Mosley MD Main - [facility] [address] [place], [place] [phone] 12/12/2021 18:28:35 12/13/2021 14:59:56 Congestive heart failure 67181581 I50.9 56y M with CHF and chronic [...] [id number] Sienna Alatorre MD Main - [facility] [address] [place] [address] 0 02/25/2022 13:53:52 03/04/2022 15:28:58 Hypoxia 261211779 R09.02 Congestive heart failure 64776339 I50.9 [id number] Nathaniel Mcconnell MD Main - [facility] [address] [place] [address] 0 04/23/2022 15:08:35 04/25/2022 10:49:48 Swelling of bilateral lower limbs 669350027 M79.89 [id number] Kristy Mosley MD Main - [facility] [address] [place], [place] [phone] 06/25/2022 17:15:30 06/26/2022 10:04:11 Dizziness [id number] R42 As noted, we were called to see this patient regarding concerns of dizziness. Evaluation in the field was performed by my route driver salesperson colleague, as noted above, I provided real-time [...] Holm Member ID Guarantor Name 03/29/2024 1 [facility] - DOS PRIOR TO 2022 - DUAL ELIGIBLE (MEDICARE REPLACEMENT/ADV ANTAGE - HMO) Romaine Longoria [id number] Romaine Longoria 03/29/2024 1 [facility] - DOS ON OR AFTER 2022 - DUAL ELIGIBLE - [employer] AND ONE CARE (MEDICARE REPLACEMENT/ADV ANTAGE - HMO) Romaine Longoria [id number] Romaine Longoria Notes Date Note Type Note [...] .................... .................... .................... .................... .................... .................... . Fixture Designer Note: Sent to evaluate pt with poly [...] resolves with rest. Pt denies hx of CA/CHF. Pt states urinary incontinence mentioned in intake note is chronic since prostate CA surgery and denies dysuria. Performed 12 lead and uploaded images to [employer]. Consulted [facility] who ordered POC CMP and then 20mg [...] Lisa Dickson MD [address], [place], [phone], [employer] 11/08/2021 15:39:10 12/12/2021 text/html HPI: Member discharged from [facility] on 11/22/21 for CHF exacerbation, started on HCTZ-Lisinopril. member reports was put on 1500mL fluid restriction. Member hasnt been drinking fluids and reports feeling dehydrated, throat dry mouth, tired and sleepy. BP taken twice 96/64, 102/72. Member will need evaluation .................... .................... .................... .................... .................... .................... .................... . CRC Nursing Assessment: Comments: CRC RN DID NOT NEED FURTHER INFO [facility] HPI: recent admission to hospital for CHF [...] Kristy Mosley MD [address], [place], [address], [email or web address] 12/12/2021 18:46:47 02/25/2022 text/html HPI: Romaine is [...] .................... .................... .................... .................... .................... .................... . Fixture Designer Note: Sent to evaluate pt with several [...] covid and rapid flu both negative. Consulted [facility] who agreed with this assessment that pt would benefit from further eval/imaging at ER. Placed 20g in L hand and activated EMS. Pt care transferred to [facility] and pt to be transported to [facility] ER. .................... .................... .................... .................... .................... .................... .................... . Disposition: Fulfilled Sienna Alatorre MD [address] [facility],[address], [place], [address], [email or web address] 10/28/2022 17:55:02 04/23/2022 text/html HPI: 56 y/o with reports of 1 week of increased LE swelling, erythema, warmth, abrasions, fatigue. R/o LE cellulitis. .................... .................... .................... .................... .................... .................... .................... . CRC Nursing Assessment: Comments: Reviewed - Ryder CABALLERO .................... .................... .................... .................... .................... .................... .................... . Fixture Designer Note From [place] Walls: Dispatch[employer] to the [...] 241, POC labs obtained and sent to [facility]. pt denied recent falls / trauma , pt legs knees to angles swollen bi - lateral, right leg was red, neither was warm to touch or open wounds or weeping. (+/=) CSMS and pulses, [facility] contacted and ordered 40mg Lasix SIVP the pt was given a prescription to get him to his PCP appointment next week, supportive care and when to call 911 discussed. (- ) adverse on to medication administration .................... .................... .................... .................... .................... .................... .................... . Disposition: Fulfilled Nathaniel Mcconnell MD [address] [place] [address],[address], [place], [phone], [employer] 07/24/2022 14:52:33 06/25/2022 text/html HPI: Romaine is a 56 y/o male, seen for VV today by BUSINESS PRACTICES SUPERVISOR. Romaine reports earlier in the day he [...] no further information needed to process visit [facility] HPI: recurrent dizziness for past year. established w pcp. checked sugar only after eating. cbg 215. normal is 150-250 for him. no chest pain, shortness of breath. feeling better now. feels like one of his normal episdoes............ .................... .................... .................... .................... .................... .................... .......... Fixture Designer Note From Edis Colon: Pt complains of [...] . POC BGL 215mg/dI and pt afebrile. [facility] contacted who agreed that pts episode likely attributed to his diabetes and instructed pt to follow up with PCP Pt educated on S/SX that would indicate 911/ED visit and it was suggested that pt keep log of these episodes and what his BGL is during each. .................... .................... .................... .................... .................... .................... .................... . Disposition: Fulfilled Kristy Mosley MD [address] [place] [address],[address], [place], [address], CAROL ANN PELLETIER 06/25/2022 17:32:07
--- OUTSIDE RECORDS SUMMARY | 2025-01-13 06:36 | XMS_ITS | Clinical Summary ---
Author Organization [address] [facility] Address [address] [place] [address] Phone Care Team Providers Care Colliery Clerk Name Role Phone Rita Fierro MD [...] EDT Type 2 diabetes mellitus without complications ([facility] [place], [facility] V28) COMPREHENSIVE METABOLIC PANEL Routine 06/06/2024 7:22 AM EDT Essential (primary) hypertension Type 2 diabetes mellitus without complications ([facility] [place], [facility] V28) Metabolic encephalopathy Alcohol use, unspecified with withdrawal delirium ([facility] [place], [facility] V28) from Last 3 Months or Most Recently Relevant to Health Maintenance Results * (ABNORMAL) Hemoglobin A1c (06/08/2024 7:34 AM EDT) Pathologist [facility] Hemoglobin A1C 7.1(H) <6.5 % LAB CHEMISTRY METHOD 06/08/2024 12:47 PM EDT [facility] Mean Bld Glu Estim. 157 mg/dL LAB CHEMISTRY METHOD 06/08/2024 12:47 PM EDT [facility] Blood Venous blood specimen / Unknown Venipuncture / Unknown 06/08/2024 7:34 AM EDT 06/08/2024 10:04 AM EDT us Krishan Sotelo MD LAB BLOOD ORDERABLES Final Resul t [facility] [address] [place] [address], * (ABNORMAL) Comprehensive metabolic panel (06/06/2024 7:22 AM EDT) [facility] Sodium 134 133 - 145 mmol/L LAB CHEMISTRY METHOD 06/06/2024 12:50 PM EDT [facility] Potassium 4.0 3.5 - 5.5 mmol/L LAB CHEMISTRY METHOD 06/06/2024 12:50 PM EDT [facility] Chloride 100 96 - 110 mmol/L LAB CHEMISTRY METHOD 06/06/2024 12:50 PM [facility] CO2 24 21 - 32 mmol/L LAB CHEMISTRY METHOD 06/06/2024 12:50 PM [facility] Anion Gap 10 3 - 11 LAB CHEMISTRY METHOD 06/06/2024 12:50 PM [facility] Glucose 146(H) 70 - 100 mg/dL LAB CHEMISTRY METHOD 06/06/2024 12:50 PM [facility] BUN 20 5 - 25 mg/dL LAB CHEMISTRY METHOD 06/06/2024 12:50 PM [facility] Creatinine 1.50(H) 0.70 - 1.30 mg/dL LAB CHEMISTRY METHOD 06/06/2024 12:50 PM [facility] eGFR 53(L) >=60 mL/min/1. 73m2 LAB CHEMISTRY METHOD 06/06/2024 12:50 PM [facility] Comment:Calculation based on the Chronic Kidney Disease Epidemiology Collaboration (CKD-EPI) equation refit without adjustment for race. BUN/Creatinine Ratio 13.3 LAB CHEMISTRY METHOD 06/06/2024 12:50 PM [facility] Calcium 9.4 8.5 - 10.5 mg/dL LAB CHEMISTRY METHOD 06/06/2024 12:50 PM [facility] AST (SGOT) 16 10 - 42 unit/L LAB CHEMISTRY METHOD 06/06/2024 12:50 PM [facility] ALT (SGPT) 15 10 - 60 unit/L LAB CHEMISTRY METHOD 06/06/2024 12:50 PM [facility] Alkaline Phosphatase 83 42 - 121 unit/L LAB CHEMISTRY METHOD 06/06/2024 12:50 PM [facility] Total Protein 7.1 6.0 - 8.0 g/dL LAB CHEMISTRY METHOD 06/06/2024 12:50 PM [facility] Albumin 3.3 3.2 - 5.0 g/dL LAB CHEMISTRY METHOD 06/06/2024 12:50 PM EDT [facility] Total Bilirubin 0.4 0.0 - 1.4 mg/dL LAB CHEMISTRY METHOD 06/06/2024 12:50 PM EDT [facility] Blood Venous blood specimen / Unknown Venipuncture / Unknown 06/06/2024 7:22 AM EDT 06/06/2024 9:08 AM EDT us Krishan Sotelo MD LAB BLOOD ORDERABLES Final Resul t [facility] ([facility] [address] [place] [address], from Last 3 Months or Most Recently Relevant to Health Maintenance Insurance [employer] MEDICARE MEDICAID - [place] Advance Directives Documents on File Type Date Recorded Patient Studio Operator Expl anation Health Care Decision (hx) [...] (hx) 09/27/2018 AD GARCIA DIRECTIVE Care Teams Colliery Clerk Relationship Specialty Start Date End Date Rita Fierro MD [address] [place] [address] PCP - General Internal Medicine 08/02/16
--- OUTSIDE RECORDS SUMMARY | 2025-01-13 06:36 | XMS_ITS | Clinical Summary ---
Author Organization [facility] Address [address] [employer] [place] [address] Phone Care Team Providers Care Manager Motor Name Role Phone Rita Fierro MD Primary [...] topic Medical Devices Not on file Insurance [facility] MEDICARE REPLACEMENT Member Subscriber Plan / Payer (Ef fective 2021-Present) Name:Romaine Longoria Relation to Subscriber:Self Name:Romaine Longoria Payer ID:[id number] (NAIC) Group ID:[id number] Type:Medicare Address: [address] [facility] ONE CARE MEDICARE [place] [address] [place] [address] [address] [place] [place] [address] CARE MEDICARE REPLACEMENT [facility] MEDICARE REPLACEMENT [facility] MEDICARE REPLACEMENT [facility] MEDICARE REPLACEMENT [facility] MEDICARE REPLACEMENT [facility] ONE CARE MEDICARE REPLACEMENT JULIET VALDIVIA [facility] Advance Directives For more information, please contact: [phone] (9AM - 5PM [facility], Thursday-Thursday) Documents on File Type Date Recorded Patient Farm Management Agent Expl anation Healthcare Proxy 08/27/2015 11:01 AM * Full Code (Presumed) (Latest Code Status on File) Date Activated Date Inactivated Comments 08/22/2015 11:35 AM 08/24/2015 10:39 AM Care Teams Manager Motor Relationship Specialty Start Date End Date Rita Fierro MD [address] [place] [address] PCP - General Internal Medicine 01/12/15 Additional Source Comments The information contained in this document represents components of the legal health record. It is not the complete legal health record.[facility]
--- OUTSIDE RECORDS SUMMARY | 2025-01-13 06:36 | XMS_ITS | Clinical Summary ---
Author Organization [facility] Facility Address [address] [address] Care Team Providers Care Hogshead Weigher Name Role Phone Rita Fierro MD [...] to complete this topic Insurance [facility] JULIET VALDIV[place] [id number] Care Teams Hogshead Weigher Relationship Specialty Start Date End Date Rita Fierro MD [facility] [address] [place] [address] [address] [place], [place] PCP - General 02/20/20
[2025-01-17 14:41] LABS: Hematocrit 36.6 % (42.0-52.0); Hemoglobin 11.9 g/dl (14.0-18.0); Mean Corpuscular HGB Conc 32.5 g/dl (31.0-36.0); Mean Corpuscular Hemoglobin 29.5 pg (27.0-33.0); Mean Corpuscular Volume 90.8 fL (80.0-98.0); NRBC Abs Auto 0.000 X10*3/uL (0.0-0.012); NRBC Pct Auto 0.0 /100WBC (0.0-0.2); Platelet Count 196 X10*3/uL (160-400); Red Blood Count 4.03 X10*6/uL (4.60-5.80); White Blood Count 8.5 X10*3/uL (4.8-10.8)
[2025-01-17 14:54] LABS: INTERNATIONAL NORM RATIO 1.0 (0.9-1.1); Prothrombin Time 12.1 SEC (11.2-13.5)
[2025-01-17 14:57] LABS: Partial Thromboplastin Time 31.9 SEC (26.7-34.1)
[2025-01-17 15:09] LABS: Alanine Aminotransferase 135 U/L (0-40); Albumin Level 4.2 g/dL (3.5-5.0); Alkaline Phosphatase 113 U/L (39-117); Anion Gap 13 (12-20); Aspartate Amino Transferase 28 U/L (5-37); Blood Urea Nitrogen 23 mg/dL (9-16); Calcium 9.9 mg/dL (8.4-10.2); Carbon Dioxide 28 mmol/L (22-29); Chloride 98 mmol/L (96-108); Estimated Glomerular Filt Rate 50; Potassium 4.9 mmol/L (3.3-5.1); Sodium 134 mmol/L (135-145); Total Protein 7.2 g/dL (6.5-8.0)
--- NOTE | 2025-01-24 11:42 | P.CONAN_ITS ---
Documented by User: Flora Forte NP 01/27/25 08:11 HPI - Anesthesia Eval Consult details Narrative: 59 yr old male for left foot debridement, bone biopsy and washout with possible amputation. Case reviewed with LM with regard to anesthesia plan based on cardiac risk factors -[facility] admission 05/2024 notable for Alcohol withdrawal with encephalopathy--required heavy sedation in icu due to delirum tremens. Also with acute hypoxia secondary to Aspiration MRSA pneumonia, sepsis, hypoxic resp. failure requiring intubation. -Pt called PCP 01/24/25 reporting headaches, numbness of right hand. -Saw PCP for preop visit 01/25/25, Medically cleared based on current available lab results; CXR is pending however he does not exhibit any signs of pulmonary disease at the time of the visit. He is at risk given his complex medical history . CAD: follows with [facility] cardiology, last visit Dec 2024, pt with ongoing chest pain, coronary CTA was ordered for suspicion of multivessel disease. On 01/24/25 @ 13:20 Jony Laughlin Wrote To Flora Piña Unknown as my notes suggest he might have multivessel coronary artery disease given his continued chest pain. However if he urgently needs debridement and amputation than it is a clinical decision. If debridement can be done under local anesthesia or block, would be less risk from cardiac perspective Possible pulmonary HTN ETOH abuse: in early remission, on campros for 9 months. Tobacco abuse Right throat CA: no records available H/O prostate CA: on bicalutamide Anesthesia Pre-Procedure Meds Is the patient on any of the following meds?: GLP1/DPP4 and SGLT2 Inhib PMFSH Active Problems Active Problems: All Active Problems (Updated 01/16/25 @ 09:02 by Maya Bullard, [facility]) Pre-op exam (Acute) Diabetic ulcer of left foot (Acute) Foot osteomyelitis, left (Acute) Foot ulcer, left (Acute) History of cardiovascular stress test (Acute ~12/2024) Rising PSA following treatment for malignant neoplasm of prostate (Acute) Influenza vaccination administered at current visit (Acute ~11/25/24) Family history of colon cancer in mother (Acute) Malignant tumor of neck (Acute) COPD (chronic obstructive pulmonary disease) (Acute) Aortic root dilatation (Acute) Fatty liver, alcoholic (Acute) Hepatomegaly (Acute) GERD (gastroesophageal reflux disease) (Acute) Obesity (BMI 30-39.9) (Acute) CKD stage 3 secondary to diabetes (Acute) LISA (generalized anxiety disorder) (Acute) MDD (major depressive disorder), recurrent episode (Acute) Anemia (Acute) Prostate CA (Acute) Hypothyroid (Acute) Chest pain (Acute) Diastolic heart failure (Acute) Atherosclerosis of extremity with ulceration (Acute) Diabetes mellitus with complication (Acute) Current smoker (Acute) Diabetic eye exam (Acute ~10/2024) Encounter for diabetic foot exam (Acute ~10/2024) Alcohol abuse, in remission (Acute) Encounter for screening involving social determinants of health (SDoH) (Acute) Varicose veins of left lower extremity with inflammation (Acute) Pulmonary HTN (Acute) CAD (coronary artery disease) (Acute) Diabetic ulcer of left foot associated with diabetes mellitus due to underlying condition (Acute) HLD (hyperlipidemia) (Acute) HTN (hypertension) (Acute) Diabetic nephropathy (Acute) Insulin dependent type 2 diabetes mellitus, controlled (Acute) Hypotension (Acute) Transaminitis (Acute) Past Medical History Medical History Prostate CA Diabetes mellitus Alcohol abuse, in remission HTN (hypertension) Prostate cancer Hypothyroid GERD (gastroesophageal reflux disease) Fatty liver CKD (chronic kidney disease) CAD (coronary artery disease) COPD (chronic obstructive pulmonary disease) Diabetic ulcer of left foot Foot osteomyelitis, left Foot ulcer, left History of osteomyelitis Spinal stenosis Hydrocele Hx of gout Umbilical hernia Diverticular disease History of MRSA infection of lungs History of alcohol withdrawal delirium Anxiety with depression Nasal septal defect Throat cancer Family History Family History Father No problems noted. Mother No problems noted. Surgical History Surgical History History of surgery on lower extremity H/O excision of mass Social History Social History Household Members: None Housing: House Do you presently have visiting nurse or other home services: Yes Alcohol intake: current Alcohol intake frequency: former alcohol drinker Alcohol type: beer Comment: 1:1 sitter Patient Tobacco Use Status: Current everyday Tobacco user Tobacco use type: Cigarette Cigarettes Per Day: 10 e-Cigarette/Vaping Use: Never Used Second Hand Smoke Exposure: No Use of substances other than those prescribed or required for medical reasons: No Are you DNR?: No Advance Directives: No Advance Directives Information Provided: Yes Advance Directives Date on File: 06/06/24 service: No Current occupational status: retired Current occupational exposures/hazards: No Cognitive needs: No Hearing needs: No Vision needs: No Meds Allergies Allergy/AdvReac Type Severity Reaction Status Date / Time No Known Allergies Allergy Verified 01/27/25 09:39 Home Medications ?Medication ?Instructions ?Recorded ?Confirmed ?Last Taken ?Type montelukast 10 mg tablet 10 mg PO DAILY 12/12/2401/09 Unknown History Exam Pertinent Lab Results Pertinent Lab Results: Laboratory Tests 01/17/25 01/17/25 13:59 14:10 WBC 8.5 RBC 4.03 L Hgb 11.9 L Hct 36.6 L MCV 90.8 MCH 29.5 MCHC 32.5 RDW 14.0 Plt Count 196 D MPV 10.3 Absolute Nucleated RBC 0.000 Nucleated RBC % (auto) 0.0 PT 12.1 INR 1.0 APTT 31.9 Sodium 134 L Potassium 4.9 Chloride 98 Carbon Dioxide 28 Anion Gap 13 BUN 23 H Creatinine 1.43 H Estim Creat Clear Calc TNP Estimated GFR 50 Random Glucose 139 H Estimat Average Glucose 174 Hemoglobin A1c % 7.7 H Calcium 9.9 D Total Bilirubin 0.5 AST 28 ALT 135 H Alkaline Phosphatase 113 Total Protein 7.2 Albumin 4.2 Blood Type A Positive Antibody Screen NEGATIVE Narrative Narrative: ECHO 12/06/24 Conclusions: - The left ventricular systolic function is normal. The calculated ejection fraction is 63% by biplane method. - The basal inferior and basal inferoseptal segments are akinetic. - No obvious valvular pathology seen on this study. - There is mild dilatation of the ascending aorta measuring 4.00 cm. Findings Left Ventricle Normal left ventricular cavity size. There is normal left ventricular wall thickness. The left ventricular systolic function is normal. The calculated ejection fraction is 63% by biplane method. There is no evidence of regional wall motion abnormalities. Evidence suggests grade I (mild) diastolic dysfunction. Wall Motion Rest Echo Findings The basal inferior and basal inferoseptal segments are akinetic. Right Ventricle Mildly increased right ventricular cavity size. There is normal right ventricular systolic function. Cardiolite Stress Test 12/2024 IMPRESSION: 1. Myocardial perfusion imaging study shows transmural infarct in the basal inferior wall with no evidence of ischemia in other segments. 2. Gated LVEF is 62%. 3. Transient ischemic dilatation not present. EKG 12/2024 NSR, rate 80 Minimal voltage for LVH Documented by User: Princess Joshi MD 01/27/25 12:02 [facility] Past Medical History Medical History Prostate CA Diabetes mellitus Alcohol abuse, in remission HTN (hypertension) Prostate cancer Hypothyroid GERD (gastroesophageal reflux disease) Fatty liver CKD (chronic kidney disease) CAD (coronary artery disease) COPD (chronic obstructive pulmonary disease) Diabetic ulcer of left foot Foot osteomyelitis, left Foot ulcer, left History of osteomyelitis Spinal stenosis Hydrocele Hx of gout Umbilical hernia Diverticular disease History of MRSA infection of lungs History of alcohol withdrawal delirium Anxiety with depression Nasal septal defect Throat cancer Family History Family History Father No problems noted. Mother No problems noted. Surgical History Surgical History History of surgery on lower extremity H/O excision of mass History of Problems with Anesthesia: No Social History Social History Household Members: None Housing: House Do you presently have visiting nurse or other home services: Yes Alcohol intake: current Alcohol intake frequency: former alcohol drinker Alcohol type: beer Comment: 1:1 sitter Patient Tobacco Use Status: Current everyday Tobacco user Tobacco use type: Cigarette Cigarettes Per Day: 10 e-Cigarette/Vaping Use: Never Used Second Hand Smoke Exposure: No Use of substances other than those prescribed or required for medical reasons: No Are you DNR?: No Advance Directives: No Advance Directives Information Provided: Yes Advance Directives Date on File: 06/06/24 service: No Current occupational status: retired Current occupational exposures/hazards: No Cognitive needs: No Hearing needs: No Vision needs: No Meds Allergies Allergy/AdvReac Type Severity Reaction Status Date / Time No Known Allergies Allergy Verified 01/27/25 09:39 Home Medications ?Medication ?Instructions ?Recorded ?Confirmed ?Last Taken ?Type montelukast 10 mg tablet 10 mg PO DAILY 12/12/2401/09 Unknown History Exam Airway Mallampati Class: II (edentulous) TM Dist: >3cm Neck ROM: Full Loose/Missing/Broken Teeth: Yes, Upper and Lower Heart: RRR Lungs: CTA Assessment and Plan Assessment Anesthesia Assessment: Anesthesia Plan Discussed and Chart Reviewed Final Anesthetic Review History of Problems with Anesthesia: No NPO: Yes ASA Class: III Final Preanesthetic Review: Meds/Allgs Chart Reviewed, Consent Obtained/Reviewed and Anes Risks/Benef Reviewed Patient Risk: Intermediate Procedure Risk: Low Anesthetic Plan Anesthetic Plan: MAC: Disposition: Standard PACU
[2025-01-25 14:54] VITALS: BMI 30.1
[2025-01-27] VITALS (8 sets, daily range): BP systolic 132–159; BP diastolic 76–106; PULSE 61–74; RESP 16–18; TEMP 36.9; O2SAT 95–96; BMI 28.3
--- NOTE | ~2025-01-27 | XR_ITS ---
EXAMINATION: XR FOOT, LEFT CLINICAL INFORMATION: S/P Left foot partial 2nd ray amp COMPARISON: Most recently 12/29/2024. MRI 01/17/2025. TECHNIQUE: AP, lateral, and oblique views of the left foot. FINDINGS: There has been recent amputation of the distal aspect of the second metatarsal. There are also osteotomy changes to the base of the proximal phalanx of the second digit. There is an old fracture deformity of the distal aspect of the third metatarsal. This is unchanged. There is moderate hallux valgus with bunion formation, similar. There is mild subcutaneous emphysema and soft tissue swelling, expected in the postoperative setting. XR/XR foot LT min 3V IMPRESSION: 1. Amputation of the distal aspect of the second metatarsal, with associated osteotomy of the base of the proximal phalanx of the second digit. Expected appearance postoperatively. 2. Expected postoperative soft tissue swelling with gas within the forefoot. 3. 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 Electronically signed by: Henry Robles MD 01/27/2025 01:26 PM YANELIS
[2025-01-27] MEDS: Lactated Ringers 1,000 ML 100 ML IVCONT (09:49)
[2025-01-27 09:58] LABS: Glucose, Whole Blood 150 mg/dL (60-115)
--- NOTE | 2025-01-27 13:09 | PM.OP ---
Brief Operative Note Date of Service: 01/27/25 Pre-op diagnosis: Left foot diabetic ulcer and osteomyelitis Post-op diagnosis: same Procedure: Left foot excisional debridement of non-viable soft tissue and bone with 2nd ray partial amputation, bone biopsy, and washout. Implants: deep wound culture, bone biopsy (2nd met head, clean margin, 2nd proximal phalanx base), pulse lavage, 3-0 vicryl, 2-0 prolene, 3-0 prolene, betadine soaked adaptic, 4x4 gauze, anum, cast padding, Reynaldo 20 cc 1:1 mix 1% lidocaine plain & 0.5% marcaine plain; then 10 cc 0.5% marcaine plain Surgeon: Yeny Prabhakar DPM Anesthesia: local Was an Director Of Clinical Education used for this Procedure?: No Estimated blood loss (mL): 10 Tourniquet time (min): 43 Pathology: other (bone biopsy (2nd met head, clean margin, 2nd proximal phalanx base),) Condition: stable Disposition: PACU Complications (if any): None
--- NOTE | 2025-01-27 13:13 | W.PM.OPN ---
Operative Note Operative Note Date of Service: 01/27/25 Narrative: Anesthesia: IV Sedation and local: 20 cc 1:1 mix of 1% lidocaine plain & 0.5% marcaine plain at the beginning of the case and 0.5% marcaine plain at the end of the case Pre-Operative Diagnoses: Left foot diabetic ulcer with suspected osteomyelitis Post-Operative Diagnoses: same as above Name of Procedure:?Left foot excisional debridement of non-viable soft tissue and bone with 2nd ray partial amputation, bone biopsy, and washout. Indications for Surgery: The patient is a 59 year old?male with the above diagnoses. The patient has exhausted all conservative treatment at this time and now requests surgical intervention.? The patient signed the consent after careful explanation of risks, benefits, complications and alternatives for surgical procedure.? No guarantees were given nor implied. NPO status was confirmed prior to taking the patient to the OR. Operative Findings: The patient was brought into the operating room and placed on the operating room table in a supine position. A timeout was performed for identification of the correct patient and procedure. The patient received a total of 20 cc of a 1:1 mixture of 1% lidocaine plain and 0.5% marcaine plain in a local ring-block fashion to the plantar wound of the left foot. Once anesthesia was achieved, the left lower extremity was then prepped and draped in normal sterile manner and the procedure began. An ankle pneumatic tourniquet was applied to the left ankle in a supramalleolar position. Procedure: Left foot excisional debridement of non-viable soft tissue and bone with 2nd ray partial amputation, bone biopsy, and washout. Attention was directed to the plantar aspect of the left foot where an ulcer measuring approximately 1 x 1 x 2 cm was noted to the submet 2 area with surrounding hyperkeratotic tissue was noted to the plantar mid foot. The ulcer probes to bone. No purulence was noted upon expression. Using a #15 blade and curette, the hyperkeratotic tissue and and non-viable tissue was excisionally debrided until a healty bleeding granular wound bed was noted. At this time a deep wound culture was taken and was passed from the surgical field to be sent for microbiology. Sterile saline was used to copiously irrigate the site. Next, using a #15 blade, a linear incision was made over the 2nd MPJ dorsally and the incision was deepened to bone using sharp and blunt dissection with care taken to protect neurovascular structures. Cautery was used to ligate small vessels. Next, using a Mcglamary, the 2nd metatarsal was freed and visualized. Using a sagittal saw, the 2nd metatarsal head was resected and was passed from the surgical field to be sent for pathology. Next, a clean margin of the 2nd metatarsal was resected and was passed from the surgical field to be sent for pathology. The base of the 2nd proximal phalanx was resected and was passed from the surgical field to be sent for pathology. The surgical site was copiously irrigated with sterile saline. The surgical site was then copiously irrigated using a pulse lavage with 3g of Vancomycin and 3L of sterile saline mix. The dorsal subcutaneous layer was reapproximated using 3-0 vicryl. The skin layer was reapproximated using 3-0 nylon. The plantar ulcerative site was reapproximated using 2-0 nylon in a retention suture fashion. The surgical site was then dressed with betadine soaked adaptic, betadine soaked 4x4 gauze, dry 4x4 gauze, anum, cast padding, an CHRIS bandage, and surgical shoe. Discharge & Condition: The patient tolerated the anesthesia and procedure well and was escorted to the recovery room with vital signs stable and neurovascular status intact to the left lower extremity.? The patient is to be partial weight bearing to the left heel with the use of an assistive device in the surgical shoe. The patient is to be discharged home when criteria has been met and is to follow up in my office within 1 week.
== END 2025-01-27 14:40 | disposition home or self-care (01) ==
PROVIDERS: PCP Nurse Practitioner Family; Visit Provider Student in an Organized Health Care Education/Training Program
PROC: (CPT 11044; principal; 2025-01-27 10:50)
DX: M87.875 Other osteonecrosis, left foot (principal); M19.072 Primary osteoarthritis, left ankle and foot; M89.772 Major osseous defect, left ankle and foot; E11.621 Type 2 diabetes mellitus with foot ulcer; L97.526 Non-pressure chronic ulcer of other part of left foot with bone involvement without evidence of necrosis; M79.672 Pain in left foot; I83.12 Varicose veins of left lower extremity with inflammation; R20.0 Anesthesia of skin; B95.1 Streptococcus, group B, as the cause of diseases classified elsewhere; Z87.39 Personal history of other diseases of the musculoskeletal system and connective tissue; I10 Essential (primary) hypertension; M10.9 Gout, unspecified; C14.0 Malignant neoplasm of pharynx, unspecified; C61 Malignant neoplasm of prostate; F41.8 Other specified anxiety disorders; G72.81 Critical illness myopathy; Z87.01 Personal history of pneumonia (recurrent); Z79.4 Long term (current) use of insulin; Z79.84 Long term (current) use of oral hypoglycemic drugs; Z79.85 Long-term (current) use of injectable non-insulin antidiabetic drugs; F10.11 Alcohol abuse, in remission; Z79.899 Other long term (current) drug therapy; Z98.890 Other specified postprocedural states; F17.210 Nicotine dependence, cigarettes, uncomplicated
CPT/HCPCS: 28810; 20240; 11044; 36415; 73630; 80053; 82947; 83036; 85027; 85610; 85730; 86850; 86900; 86901; 87070; 87077; 87147; 87186; 87205; 88304; 88311; J0131; J0665; J2003; J2250; J2704; J3010; J3374

== ENCOUNTER → 2025-01-27 08:34 | Outpatient (BNV) | payer MEDICARE, MEDICAID, SELFPAY | PROVIDERS: PCP Nurse Practitioner Family; Visit Provider Student in an Organized Health Care Education/Training Program | DX: M87.9 Osteonecrosis, unspecified (principal) | CPT/HCPCS: 11044; 20220; 28810 ==

== ENCOUNTER → 2025-01-27 13:11 | Outpatient (BNV) | payer MEDICARE, MEDICAID, SELFPAY | PROVIDERS: PCP Nurse Practitioner Family; Visit Provider Radiology Diagnostic Radiology | DX: M19.072 Primary osteoarthritis, left ankle and foot (principal); M20.12 Hallux valgus (acquired), left foot | CPT/HCPCS: 73630 ==

== ENCOUNTER 2025-02-06 14:25 | Outpatient (AMB) | payer MEDICARE, MEDICAID, SELFPAY ==
--- NOTE | 2025-02-06 14:37 | A.OFFVIS_ITS ---
Vital Signs 02/06/25 15:34 Height 5 ft 11 in Weight 203 lb BMI 28.3 Intake Visit Reasons: post op Intake Note: Romaine is a 59 year old male who presents today for a post op follow up. Patient reports he is doing well however he is still experiencing pain in his foot and he believes his medications or causing him head aches and diarrhea. Patient mentions has has recently been diagnosed with prostate and lymph node cancer. Allergies No Known Allergies Allergy (Verified 02/06/25 15:36) HPI Comments Details: The patient is a 59 year old male presenting for a post-operative visit S/P Left foot excisional debridement of non-viable soft tissue and bone with 2nd ray partial amputation, bone biopsy, and washout (DOS: 01/27/25). Patient was seen with out surgical dressing and was seen with regular shoes. He states he has experienced mild pain to the surgical sites. He denies any active drainage, purulence, or bleeding from the surgical sites. Patient states he recently has not been feeling well and states he has been having other unspecified health issues. He denies any other pedal concerns. [facility] Medical History Prostate CA Diabetes mellitus Alcohol abuse, in remission HTN (hypertension) Prostate cancer Hypothyroid GERD (gastroesophageal reflux disease) Fatty liver CKD (chronic kidney disease) CAD (coronary artery disease) COPD (chronic obstructive pulmonary disease) Diabetic ulcer of left foot Foot osteomyelitis, left Foot ulcer, left History of osteomyelitis Spinal stenosis Hydrocele Hx of gout Umbilical hernia Diverticular disease History of MRSA infection of lungs History of alcohol withdrawal delirium Anxiety with depression Nasal septal defect Throat cancer Surgical History History of surgery on lower extremity H/O excision of mass Family History Father No problems noted. Mother No problems noted. Social History Household Members: None Housing: House Do you presently have visiting nurse or other home services: Yes Alcohol intake: current Alcohol intake frequency: former alcohol drinker Alcohol type: beer Comment: 1:1 sitter Patient Tobacco Use Status: Current everyday Tobacco user Tobacco use type: Cigarette Cigarettes Per Day: 10 e-Cigarette/Vaping Use: Never Used Second Hand Smoke Exposure: No Advance Directives Date on File: 06/06/24 service: No Current occupational status: retired Current occupational exposures/hazards: No Cognitive needs: No Hearing needs: No Vision needs: No Review of Systems Const Details: S/P Left foot excisional debridement of non-viable soft tissue and bone with 2nd ray partial amputation, bone biopsy, and washout (DOS: 01/27/25). All systems reviewed & are unremarkable except as noted in HPI and below Physical Exam Vital Signs: BMI result Body Mass Index 28.3 Extrem Other: Left lower extremity focused physical exam: Derm: Surgical site noted to be intact with sutures intact. No signs of maceration or dehiscence. No malodor noted. No active purulence, drainage, bleeding noted. No erythema noted. Mild postsurgical edema noted. Vascular: DP/PT pulses palpable. Capillary refill time less than 3 seconds. Temperature gradient warm to warm and pedal hair absent. Minimal varicosities noted. Neuro: Protective sensation is grossly intact to light touch. MSK: Mild pain on palpation to the surgical site. No crepitus or fluctuance noted. Range of motion of the forefoot within normal limits except reduced to the 2nd toe. Range of motion of the hindfoot and ankle within normal limits. Mildly antalgic gait unassisted noted. Patient seen wearing boots and seen fully weight-bearing. Office Procedures AMB Debridement/Avulsion Podia Details: Cleansed the surgical site with normal saline. Applied Betadine 4 x 4 gauze K erlix and Reynaldo bandage to the left foot. Procedure code (CPT) selection complete Results Reviewed Results Reviewed: Laboratory Tests 01/17/25 01/27/25 14:10 09:42 WBC 8.5 POC Glucose 150 H Hemoglobin A1c % 7.7 H AST 28 ALT 135 H Left foot postoperative x-ray (01/27/2025): FINDINGS: There has been recent amputation of the distal aspect of the second metatarsal. There are also osteotomy changes to the base of the proximal phalanx of the second digit. There is an old fracture deformity of the distal aspect of the third metatarsal. This is unchanged. There is moderate hallux valgus with bunion formation, similar. There is mild subcutaneous emphysema and soft tissue swelling, expected in the postoperative setting. IMPRESSION: 1. Amputation of the distal aspect of the second metatarsal, with associated osteotomy of the base of the proximal phalanx of the second digit. Expected appearance postoperatively. 2. Expected postoperative soft tissue swelling with gas within the forefoot. 3. 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 Microbiology 01/27/25 12:05 Foot Left Gram Stain - Final 01/27/25 12:05 Foot Left Routine Culture - Final Pseudomonas aeruginosa Strep agalactiae (Grp B) Intraoperative left foot bone pathology (01/27/25): A. Bone, left 2nd metatarsal head, excision: Bone with marrow necrosis and no osteomyelitis. B. Bone, left 2nd metatarsal clean margin, excision: Bone with marrow necrosis and no osteomyelitis. C. Bone, left 2nd proximal phalanx, excision: Bone and cartilage with degenerative changes and marrow necrosis; no osteomyelitis Microbiology 01/04/25 08:57 Foot Left Gram Stain - Final 01/04/25 08:57 Foot Left Routine Culture - Final Strep agalactiae (Grp B) Methicillin Res Staph Aureus Corynebacterium species Podiatry read of left foot MRI (01/17/2025): Ulcerative site noted to the submet 2 area. Reactive changes noted to the 2nd metatarsal head. No soft tissue emphysema noted. Left foot MRI (01/17/25): IMPRESSION: There is skin ulceration plantar to the second MTP joint extending laterally. There are subtle marrow signal changes with minimal enhancement. Changes are probably reactive in nature, though an early osteomyelitis is not entirely ruled out in the plantar second metatarsal head. Additionally, there is a joint effusion that is felt to be reactive rather than related to septic arthritis since there are no visible erosions or marrow signal changes in the periarticular bone. Hammertoe deformity second through fifth digits. Midfoot and forefoot musculature demonstrates moderate severe fatty replacement with edema that enhances raising question of cellulitis. The superficial soft tissues demonstrate edema in the dorsal midfoot and forefoot without enhancement most consistent with a bland edema. Hallux valgus deformity with severe degenerative change of the first MTP joint. There are postsurgical changes involving the distal diaphysis and neck of the third metatarsal and adjacent dorsal soft tissues. Podiatry read of Bilateral foot x-rays (12/29/2024): Right - Significant HAV noted and hammertoes 2-5. Arthritic changes noted to the forefoot. No acute fractures or dislocations noted. No soft tissue emphysema noted. Left - Significant HAV noted and hammertoes 2-5. Arthritic changes noted to the forefoot. No acute fractures or dislocations noted. No soft tissue emphysema noted. 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 Bilateral foot x-rays (12/29/2024): Right - FINDINGS: There is no fracture, dislocation, or suspicious bone lesion. There is moderate hallux valgus with mild degenerative arthritis at the first MTP joint. There are hammertoe deformities. There is no focal osteopenia or region of permeative bone change or periostitis to suggest radiographic changes of osteomyelitis. Soft tissues appear radiographically unremarkable without subcutaneous emphysema. IMPRESSION: 1. No acute bony abnormalities. No radiographic evidence of osteomyelitis. 2. Moderate hallux valgus. Left - FINDINGS: No fracture, dislocation, or suspicious bone lesion. There is moderate hallux valgus with bunion formation involving median eminence of the first metatarsal head. There are mild degenerative changes at the first MTP joint. There are hammertoe deformities. There is a healed fracture involving the distal third metatarsal. There is no focal osteopenia or region of permeative bony change or periostitis to suggest radiographic changes of osteomyelitis. Soft tissues appear radiographically unremarkable without subcutaneous emphysema. IMPRESSION: 1. No acute bony abnormalities. No radiographic evidence of osteomyelitis. 2. Moderate hallux valgus with bunion formation. Podiatry read of Left foot CT scan (12/29/2024): Left 2nd toe ulcer. Significant HAV noted and hammertoes 2-5. Arthritic changes noted to the forefoot. No acute fractures or dislocations noted. No soft tissue emphysema noted. 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 Left foot CT scan (12/29/2024): FINDINGS: There is hallux valgus deformity across the first metatarsophalangeal joint. There is degenerative sclerosis and cystic change in the first metatarsal head. There are also marginal osteophytes involving the first MTP joint and first metatarsal head articulation with sesamoids. There is a healed fracture involving the neck region of the third metatarsal. Degenerative cystic changes are present involving the medial side of the intermediate cuneiform. There are no marginal osteophytes involving the dorsal midfoot. The talar dome is intact. There is a metal BB placed on the surface of the skin plantar to the base of the second digit. No bony erosions are evident here. There is soft tissue ulceration 15 mm diameter. It does not clearly extend to the bone. Extends through subcutaneous soft tissues to within 4 mm of the second metatarsal head. There is likely a second more superficial area of ulceration just medial to the aforementioned There is edema in the adjacent soft tissues. Additionally, there is generalized subcutaneous soft tissue edema throughout the foot. There is moderate fatty replacement of foot musculature. Achilles tendon and plantar fascial grossly intact. Medial, peroneal, and anterior ankle tendons are intact. Syndesmotic ligaments are grossly intact. Talofibular and calcaneofibular ligaments are grossly intact. IMPRESSION: There is a 15 mm soft tissue ulceration plantar to the second metatarsal head and likely a second more superficial ulceration just lateral to the aforementioned. There is no visible erosion in the adjacent bone. There is generalized edema and/or cellulitis. 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 Assessment & Plan Assessment & Plan (1) Foot ulcer, left: Code(s): L97.529 - Non-pressure chronic ulcer of other part of left foot with unspecified severity Category: Medical Qualifiers: Non-pressure ulcer stage: with bone involvement without evidence of necrosis Qualified Code(s): L97.526 - Non-pressure chronic ulcer of other part of left foot with bone involvement without evidence of necrosis (2) Foot osteomyelitis, left: Code(s): M86.9 - Osteomyelitis, unspecified Category: Medical (3) Diabetic ulcer of left foot: Code(s): E11.621 - Type 2 diabetes mellitus with foot ulcer; L97.529 - Non-pressure chronic ulcer of other part of left foot with unspecified severity Category: Medical Qualifiers: Diabetic foot ulcer location: toe Diabetes mellitus type: type 2 Non- pressure ulcer stage: with bone involvement without evidence of necrosis Qualified Code(s): E11.621 - Type 2 diabetes mellitus with foot ulcer; L97.526 - Non-pressure chronic ulcer of other part of left foot with bone involvement without evidence of necrosis (4) Diabetic ulcer of left foot associated with diabetes mellitus due to unde rlying condition: Code(s): E08.621 - Diabetes mellitus due to underlying condition with foot ulcer; L97.529 - Non-pressure chronic ulcer of other part of left foot with unspecified severity Category: Medical Qualifiers: Diabetic foot ulcer location: unspecified part of foot Non-pressure ulcer stage: unspecified non-pressure ulcer stage Qualified Code(s): E08.621 - Diabetes mellitus due to underlying condition with foot ulcer; L97.529 - Non- pressure chronic ulcer of other part of left foot with unspecified severity Plan Patient was informed and verbally consented to the use of an ambient scribe for clinic note documentation during this visit. I discussed with the patient that the retention stitches on the bottom of his foot will need to stay in longer to help the skin heal. We will remove all sutures in two weeks. I explained that while the removed bone was starting to off, it was not infected, but a recent wound culture of the skin still shows an active infection. I informed him that I have prescribed a 10-day course of antibiotics, with the dose adjusted for his kidney health, and have also placed a referral to Infectious Disease for further management. I provided him with a new surgical shoe to protect the sutures and advised him to keep the new dressing in place. He was instructed to follow up in two weeks for suture removal, by which time he should have completed the antibiotic course. - The existing sutures, including the retention stitches on the bottom of the foot, will remain in place. - Reapplied dressing to the left foot. patient is to keep the dressing clean dry and intact until next appointment. - Prescribed ciprofloxacin to be taken twice a day for 10 days - A referral has been placed for an Infectious Disease consultation for further antibiotic management. - Patient is to be partial weight-bearing to the left heel with the use of an assistive device in a surgical shoe. - Provided patient with another surgical shoe today. RTC in 2 weeks. Orders: Orders AMB Debridement/Avulsion Podiatry 02/06/25 E08.621 - Diabetes mellitus due to underlying condition with foot ulcer, E11.621 - Type 2 diabetes mellitus with foot ulcer, E11.8 - Type 2 diabetes mellitus with unspecified complications, L97.526 - Non-pressure chronic ulcer of other part of left foot with bone involvement without evidence of necrosis, L97.529 - Non-pressure chronic ulcer of other part of left foot with unspecified severity, M86.9 - Osteomyelitis, unspecified Referrals Infectious Disease Referral L97.526 - Non-pressure chronic ulcer of other part of left foot with bone involvement without evidence of necrosis, M86.9 - Osteomyelitis, unspecified Medications: New ciprofloxacin HCl 250 mg PO BID 20 tabs 0RF L97.526 - Non-pressure chronic ulcer of other part of left foot with bone involvement without evidence of necrosis, M86.9 - Osteomyelitis, unspecified Coding Level of Care Code Global (12024) Diagnoses Ulcer of left foot with bone involvement without evidence of necrosis L97.526 Non-pressure ulcer stage: with bone involvement without evidence of necrosis Foot osteomyelitis, left M86.9 Diabetic ulcer of toe of left foot associated with type 2 diabetes mellitus, with bone involvement without evidence of necrosis E11.621; L97.526 Diabetic foot ulcer location: toe Diabetes mellitus type: type 2 Non-pressure ulcer stage: with bone involvement without evidence of necrosis Diabetic ulcer of left foot associated with diabetes mellitus due to underlying condition, unspecified part of foot, unspecified ulcer stage E08.621; L97.529 Diabetic foot ulcer location: unspecified part of foot Non-pressure ulcer stage: unspecified non-pressure ulcer stage Time Spent (min) 36
[2025-02-06 15:34] VITALS: BMI 28.3
--- OUTSIDE RECORDS SUMMARY | 2025-02-06 16:47 | XMS_ITS | Clinical Summary ---
Author Organization [facility] Prior to 07/09/24 Address [address] [place] [address] Care Team Providers Care Corrective Therapist Name Role Phone Rita Fierro MD [...] age to complete this topic Care Teams Corrective Therapist Relationship Specialty Start Date End Date Rita Fierro MD [address] [place] [address] [place] [address] PCP - General Internal Medicine 08/02/16
--- OUTSIDE RECORDS SUMMARY | 2025-02-06 16:47 | XMS_ITS | Encounter Summary ---
Author Organization [facility] Address [address] [place] [address] Care Team Providers Care Audio Visual Technician Name Role Phone Rita Fierro MD Primary Care Provide r Encounter Details Date Type Department Care Team (Late st Contact Info) Description 06/08/2024 Lab Requisition [facility] - Main Lab [address] [facility] [place] [address] Krishan Sotelo MD [address] [place] [address] 204 [place], [phone] Type 2 diabetes mellitus without complications [...] mellitus without complications (CMS/HCC V24, CMS/[facility] V28) documented in this encounter Results * (ABNORMAL) Hemoglobin A1c (06/08/2024 7:34 AM EDT) Hemoglobin A1C 7.1(H) <6.5 % LAB CHEMISTRY METHOD 06/08/2024 12:47 PM EDT [facility] ([facility]) [facility] Mean Bld Glu Estim. 157 mg/dL LAB CHEMISTRY METHOD 06/08/2024 12:47 PM EDT [facility] Blood Venous blood specimen / Unknown Venipuncture / Unknown 06/08/2024 7:34 AM EDT 06/08/2024 10:04 AM EDT us Krishan Sotelo MD LAB BLOOD ORDERABLES Final Resul t [facility] [address] [place] [address], documented in this encounter Visit Diagnoses Diagnosis Type 2 diabetes mellitus without complications (CMS/HCC V24, CMS/HCC V28) documented in this encounter Care Teams Audio Visual Technician Relationship Specialty Start Date End Date Rita Fierro MD [address] [place] [address] [place] PCP - General Internal Medicine 08/02/16 documented as of this encounter
--- OUTSIDE RECORDS SUMMARY | 2025-02-06 16:47 | XMS_ITS | Encounter Summary ---
Author Organization [facility] Address [address] [place] [address] Care Team Providers Care Flex O Writer Operator Name Role Phone Rita Fierro MD Primary Care Provide r Encounter Details Date Type Department Care Team (Late st Contact Info) Description 06/06/[address] [facility] - Main Lab 299 [facility] [place] [address] Krishan Sotelo MD [address] [place] [address] 204 [facility] [phone] Essential (primary) hypertension; Type 2 diabetes [...] 2 diabetes mellitus without complications (CMS/HCC V24, [facility] V28) Metabolic encephalopathy Alcohol use, unspecified with withdrawal delirium ([facility] [place] V24, [facility] V28) COMPREHENSIVE METABOLIC PANEL Routine 06/06/2024 7:22 AM EDT Essential (primary) hypertension Type 2 diabetes mellitus without complications ([facility] V24, [facility] V28) Metabolic encephalopathy Alcohol use, unspecified with withdrawal delirium ([facility] V24, [facility] V28) documented in this encounter Results * (ABNORMAL) CBC auto differential (06/06/2024 7:22 AM EDT) [facility] WBC 9.4 4.8 - 10.8 K/mcL [...] LAB HEMETOLOGY METHOD 06/06/2024 10:49 AM EDT [facility] Eosinophils Absolute 0.57(H) 0.00 - 0.50 K/mcL LAB HEMETOLOGY METHOD 06/06/2024 10:49 AM T [facility] Basophils Absolute 0.10 0.00 - 0.20 K/mcL LAB HEMETOLOGY METHOD 06/06/2024 10:49 AM EDT [facility] Immature Granulocytes Absolute 0.11(H) 0.00 - 0.03 K/mcL LAB HEMETOLOGY METHOD 06/06/2024 10:49 AM T [facility] Blood Venous blood specimen / Unknown Venipuncture / Unknown 06/06/2024 7:22 AM EDT 06/06/2024 9:08 AM EDT us Krishan Sotelo MD LAB BLOOD ORDERABLES Final Resul t [facility] [address] [place] [address], [place] [phone] * (ABNORMAL) Comprehensive metabolic panel (06/06/2024 7:22 [...] LAB BLOOD ORDERABLES Final Resul t [facility] ([facility]) [facility] [address] [place] [address], [place] [phone] documented in this encounter Visit Diagnoses Diagnosis Essential (primary) hypertension Unspecified essential hypertension Type 2 diabetes mellitus without complications (CMS/[facility] V24, CMS/[facility] V28) Metabolic encephalopathy Alcohol use, unspecified with withdrawal delirium (CMS/[facility] V24, CMS/[facility] V28) documented in this encounter Care Teams Flex O Writer Operator Relationship Specialty Start Date End Date Rita Fierro MD [address] [place] [address] PCP - General Internal Medicine 08/02/16 documented as of this encounter
--- OUTSIDE RECORDS SUMMARY | 2025-02-06 16:47 | XMS_ITS | Encounter Summary ---
Author Organization [facility] Prior to 07/09/[address] [place] [address] Care Team Providers Care Financing Analyst Name Role Phone Rita Fierro MD Primary Care Provide r Encounter Details Date Type Department Care Team Description 02/21/2022 Social Work [facility] [address] [place] [address] Ramon Hoskins, [facility] Social History Tobacco Use Types Packs/Day Years [...] on filedocumented in this encounter Care Teams Financing Analyst Relationship Specialty Start Date End Date Rita Fierro MD [address] [place] [address] PCP - General Internal Medicine 08/02/16 documented as of this encounter
--- OUTSIDE RECORDS SUMMARY | 2025-02-06 16:48 | XMS_ITS | Clinical Summary ---
Author Organization [facility] Address [address] [address] Care Team Providers Care Continuing Education Instructor Name Role Phone Rita Fierro MD [...] patient's age to complete this topic Insurance [facility] JULIET VALDIVIA [id number] Care Teams Continuing Education Instructor Relationship Specialty Start Date End Date Rita Fierro MD [facility] [address] [place] [address] [address] [place], [place] PCP - General 02/20/20
--- OUTSIDE RECORDS SUMMARY | 2025-02-06 16:48 | XMS_ITS | Clinical Summary ---
Author Organization [address] [facility] Address [address] [place] [address] Phone Care Team Providers Care Inventory Specialist Manager Name Role Phone Rita Fierro MD [...] EDT Type 2 diabetes mellitus without complications ([facility] V24, [facility] V28) COMPREHENSIVE METABOLIC PANEL Routine 06/06/2024 7:22 AM EDT Essential (primary) hypertension Type 2 diabetes mellitus without complications ([facility] V24, [facility] V28) Metabolic encephalopathy Alcohol use, unspecified with withdrawal delirium ([facility] V24, [facility] V28) from Last 3 Months or Most Recently Relevant to Health Maintenance Results * (ABNORMAL) Hemoglobin A1c (06/08/2024 7:34 AM EDT) Hemoglobin A1C 7.1(H) <6.5 % LAB CHEMISTRY METHOD 06/08/2024 12:[address] [facility] Mean Bld Glu Estim. 157 mg/dL LAB CHEMISTRY METHOD 06/08/2024 12:[address] [facility] Blood Venous blood specimen / Unknown Venipuncture / Unknown 06/08/2024 7:34 AM EDT 06/08/2024 10:04 AM EDT us Krishan Sotelo MD LAB BLOOD ORDERABLES Final Resul t [facility] [address] [place] [address], * (ABNORMAL) Comprehensive metabolic panel (06/06/2024 7:22 AM EDT) Sodium 134 133 - 145 mmol/L LAB CHEMISTRY METHOD 06/06/2024 12:[address] [facility] Potassium 4.0 3.5 - 5.5 mmol/L LAB CHEMISTRY METHOD 06/06/2024 12:[address] [facility] Chloride 100 96 [...] LAB CHEMISTRY METHOD 06/06/2024 12:50 PM EDT [facility] ([facility]) [facility] Total Bilirubin 0.4 0.0 - 1.4 mg/dL LAB CHEMISTRY METHOD 06/06/2024 12:50 PM EDT [facility] ([facility]) [facility] Blood Venous blood specimen / Unknown Venipuncture / Unknown 06/06/2024 7:22 AM EDT 06/06/2024 9:08 AM EDT us Krishan Sotelo MD LAB BLOOD ORDERABLES Final Resul t [facility] ([facility] [address] [place] [address], from Last 3 Months or Most Recently Relevant to Health Maintenance Insurance [employer] MEDICARE [place]ICAID - [place] Advance Directives Documents on File Type Date Recorded 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
--- OUTSIDE RECORDS SUMMARY | 2025-02-06 16:48 | XMS_ITS | Data Portability ---
Author Organization [facility], [facility] Address [address] [place] [address] Care Team Providers Care Web Design Instructor Name Role Phone [facility] Referring Provider [phone] Assessment Encounter Date Assessment Date Assessment LastModified [...] a four hour ED wait time. VSS. Crankshaft Grinder on site reports that he has tense [...] come and go. Upon presentation with the visual and stock associate he was found to have an [...] Assessment and Plan as documented by the Crankshaft Grinder. I provided real-time medical direction via phone [...] flu (A+B) 2022 023 [email or web address] Main - [facility], [address] [place] [address], [phone] 17:54:47 rapid SARS CoV 2 Ag, QL IA, respiratory specimen 2022 023 [email or web address], [address] [place] [address], [phone] 3 17:54:47 Referral None recorded. Procedures None recorded. Surgeries None recorded. Imaging None recorded. Medication Orders furosemide 20 mg tablet 2022 023 [id number], [address] [place], [address], 3 15:12:40 Patient TargetsNo targets recorded. Patient InstructionsNo instructions recorded. Reason for Referral None Reported. Results Created Date Observation Date Name Description Value Unit Range Abnormal Flag Note LastModifiedBy Organization Detail LastModifiedTime 02/25/1902/25/2022 rapid SARS CoV 2 Ag, QL IA, respi rator y speci men rapid SARS CoV 2 Ag, QL IA, respiratory specimen negati ve Not Available [facility] [address] [place] [address], [phone] 02/25/2022 13:55:18 02/25/19 23 02/25/2022 rapid flu (A+B) Flu negati ve Not Available [facility] ed [address] [place] [address], [phone] 02/25/2022 13:55:16 Result Notes None recorded. Medical [...] Details Last Updated DateTime 3 98.1 [degF] 080268. 16 g 16 /min 93 % 86 /min 86 /min 16 /min 98.1 [degF] 93 % 026468. 16 g 139/87 mm[Hg] 139/87 mm[Hg] Not Available [facility] - production 3 15:31:07 Date Recorded Body weight Respiratory rate Oxygen saturation Body temperature Heart rate Body temperature Heart rate Body weight Respiratory rate Oxygen saturation Systolic And Diastolic Systolic And Diastolic Provider Name and Address Organization Details Last Updated DateTime 3 635398. 08 g 14 /min 96 % 97.5 [degF] 75 /min 97.5 [degF] 75 /min 980389. 08 g 14 /min 96 % 141/78 mm[Hg] 141/78 mm[Hg] Not Available [facility] - production 3 17:28:39 Date Recorded Body temperature Heart rate Oxygen saturation Respiratory rate Heart rate Body temperature Oxygen saturation Respiratory rate Systolic And Diastolic Systolic And Diastolic Provider Name and Address Organization Details Last Updated DateTime 2 99.1 [degF] 98 /min 96 % 18 /min 98 /min 99.1 [degF] 96 % 18 /min 155/77 mm[Hg] 155/77 mm[Hg] Not Available [facility] - [employer] 2 14:34:47 Date Recorded Respiratory rate Heart rate Oxygen saturation Systolic And Diastolic Provider Name and Address Organization Details Last Updated DateTime 12/12/2021 18 /min 86 /min 95 % 129/58 mm[Hg] Not Available [facility] 2 18:28:42 Social History None recorded. Functional Status None recorded. Mental Status None recorded. Family History Nothing Reported. Medical History No medical history recorded. Past Encounters Encounter ID Performer Location Encounter Start Date Encounter Closed Date Diagnosis/Indication Diagnosis SNOMED-CT Code Diagnosis ICD10 Code Diagnosis IMO Codes Diagnosis Note [id number] Nathaniel Mcconnell MD Main - [facility] [address] [place] [phone] 08/06/2021 17:15:40 10/15/2021 12:14:09 Altered mental status 522317411 R41.82 [id number] Lisa Dickson MD Main - [facility] [address] [place], [place] [phone] 11/08/2021 13:18:37 11/08/2021 15:39:12 [id number] Kristy Mosley MD Main - [facility] [address] [place], [place] [phone] 12/12/2021 18:28:35 12/13/2021 14:59:56 Congestive heart failure 56960531 I50.9 56y M with CHF and chronic [...] [id number] Sienna Alatorre MD Main - [facility] [address] [place] [address] 0 02/25/2022 13:53:52 03/04/2022 15:28:58 Hypoxia 692150653 R09.02 Congestive heart failure 27264701 I50.9 [id number] Nathaniel Mcconnell MD Main - [facility] [address] [place] [address] 0 04/23/2022 15:08:35 04/25/2022 10:49:48 Swelling of bilateral lower limbs 816151335 M79.89 [id number] Kristy Mosley MD Main - [facility] [address] [place], [place] [phone] 06/25/2022 17:15:30 06/26/2022 10:04:11 Dizziness 758075420 R42 As noted, we were called to see this patient regarding concerns of dizziness. Evaluation in the field was performed by my visual and stock associate colleague, as noted above, I provided [...] Holm Member ID Guarantor Name 03/29/2024 1 [facility] - DOS PRIOR TO 2022 - DUAL ELIGIBLE (MEDICARE REPLACEMENT/ADV ANTAGE - HMO) Romaine Longoria [id number] Romaine Longoria 03/29/2024 1 [facility] - DOS ON OR AFTER 2022 - DUAL ELIGIBLE - JAIL OPTIONS AND ONE CARE (MEDICARE REPLACEMENT/ADV ANTAGE - HMO) Romaine Longoria [id number] Romaine Longoria Notes Date Note Type Note [...] .................... .................... .................... .................... .................... .................... . Crankshaft Grinder Note: Sent to evaluate pt with poly [...] resolves with rest. Pt denies hx of VA/CHF. Pt states urinary incontinence mentioned in intake note is chronic since prostate CA surgery and denies dysuria. Performed 12 lead and uploaded images to [employer]. Consulted [facility] who ordered POC CMP and then 20mg [...] Lisa Dickson MD [address], [place], [phone], [employer] 11/08/2021 15:39:10 12/12/2021 text/html HPI: Member discharged from [facility] on 11/22/21 for CHF exacerbation, started on HCTZ-Lisinopril. member reports was put on 1500mL fluid restriction. Member hasnt been drinking fluids and reports feeling dehydrated, throat dry mouth, tired and sleepy. BP taken twice 96/64, 102/72. Member will need evaluation .................... .................... .................... .................... .................... .................... .................... . CRC Nursing Assessment: Comments: CRC RN DID NOT NEED FURTHER INFO [facility] HPI: recent admission to hospital for CHF [...] Kristy Mosley MD [address], [place], [address], [email or web address] - [employer] 12/12/2021 18:46:47 02/25/2022 text/html HPI: Romaine is [...] .................... .................... .................... .................... .................... .................... . Crankshaft Grinder Note: Sent to evaluate pt with several [...] covid and rapid flu both negative. Consulted [facility] who agreed with this assessment that pt would benefit from further eval/imaging at ER. Placed 20g in L hand and activated EMS. Pt care transferred to [facility] and pt to be transported to [facility] ER. .................... .................... .................... .................... .................... .................... .................... . Disposition: Fulfilled Sienna Alatorre MD [address] [facility],[address], [place], [address], [email or web address] - [email or web address] 10/28/2022 17:55:02 04/23/2022 text/html HPI: 56 y/o with reports of 1 week of increased LE swelling, erythema, warmth, abrasions, fatigue. R/o LE cellulitis. .................... .................... .................... .................... .................... .................... .................... . CRC Nursing Assessment: Comments: Reviewed - Ryder CABALLERO .................... .................... .................... .................... .................... .................... .................... . Crankshaft Grinder Note From Jerome Walls: DispatchEd to the [...] 241, POC labs obtained and sent to [facility]. pt denied recent falls / trauma , pt legs knees to angles swollen bi - lateral, right leg was red, neither was warm to touch or open wounds or weeping. (+/=) CSMS and pulses, [facility] contacted and ordered 40mg Lasix SIVP the pt was given a prescription to get him to his PCP appointment next week, supportive care and when to call 911 discussed. (- ) adverse on to medication administration .................... .................... .................... .................... .................... .................... .................... . Disposition: Fulfilled Nathaniel Mcconnell MD [address] [place] [address],[address], [place], [phone], [employer] 07/24/2022 14:52:33 06/25/2022 text/html HPI: Romaine is a 56 y/o male, seen for VV today by [facility]. Romaine reports earlier in the day he [...] no further information needed to process visit [facility] HPI: recurrent dizziness for past year. established w pcp. checked sugar only after eating. cbg 215. normal is 150-250 for him. no chest pain, shortness of breath. feeling better now. feels like one of his normal episdoes............ .................... .................... .................... .................... .................... .................... .......... Crankshaft Grinder Note From Edis Colon: Pt complains of [...] . POC BGL 215mg/dI and pt afebrile. [facility] contacted who agreed that pts episode likely attributed to his diabetes and instructed pt to follow up with PCP Pt educated on S/SX that would indicate 911/ED visit and it was suggested that pt keep log of these episodes and what his BGL is during each. .................... .................... .................... .................... .................... .................... .................... . Disposition: Fulfilled Kristy Mosley MD [address] [place] [address],[address], [place], [phone], CAROL ANN PELLETIER 06/25/2022 17:32:07
--- OUTSIDE RECORDS SUMMARY | 2025-02-06 16:48 | XMS_ITS | Clinical Summary ---
Author Organization [facility] Address [address] [place] [address] Phone Care Team Providers Care Spa Host Name Role Phone Rita Fierro MD Primary [...] topic Medical Devices Not on file Insurance [facility] CARE MEDICARE REPLACEMENT Member Subscriber Plan / Payer (Ef fective 2021-Present) Name:Romaine Longoria Relation to Subscriber:Self Name:Romaine Longoria Payer ID:[id number] (NAIC) Group ID:[id number] Type:Medicare [address]: [address] [facility] ONE CARE MEDICARE [place]PL[place] [address] [place] [address] [address] [place] [place] [place] [address] CARE MEDICARE REPLACEMENT [facility] CARE MEDICARE REPLACEMENT [facility] CARE MEDICARE REPLACEMENT [facility] CARE MEDICARE REPLACEMENT [facility] CARE MEDICARE REPLACEMENT [facility] ONE CARE MEDICARE REPLACEMENT JULIET VALDIVIA [facility] Advance Directives For more information, please contact: [phone] (9AM - 5PM [facility], Thursday-Thursday) Documents on File Type Date Recorded Patient Leaf Stamper Expl anation Healthcare Proxy 08/27/2015 11:01 AM * Full Code (Presumed) (Latest Code Status on File) Date Activated Date Inactivated Comments 08/22/2015 11:35 AM 08/24/2015 10:39 AM Care Teams Spa Host Relationship Specialty Start Date End Date Rita Fierro MD [address] [place] [address] PCP - General Internal Medicine 01/12/15 Additional Source Comments The information contained in this document represents components of the legal health record. It is not the complete legal health record.[facility]
--- OUTSIDE RECORDS SUMMARY | 2025-02-06 16:48 | XMS_ITS | Clinical Summary ---
Author Organization [facility] Address [address] [facility] [address] [place] [address] Care Team Providers Care Law Office Receptionist Name Role Phone Unavailable Primary Care Provider [...] patient's age [place] [id number] [facility] MEDICARE ADVANTAGE
== END 2025-02-06 14:56 | disposition home or self-care (01) ==
LOC: HO.HPODS 14:27
PROVIDERS: PCP Nurse Practitioner Family; Visit Provider Student in an Organized Health Care Education/Training Program
DX: E11.621 Type 2 diabetes mellitus with foot ulcer (principal); L97.526 Non-pressure chronic ulcer of other part of left foot with bone involvement without evidence of necrosis; M86.9 Osteomyelitis, unspecified; E08.621 Diabetes mellitus due to underlying condition with foot ulcer; L97.529 Non-pressure chronic ulcer of other part of left foot with unspecified severity
CPT/HCPCS: 99024

== ENCOUNTER → 2025-02-06 14:25 | Outpatient (BNVA) | payer MEDICARE, MEDICAID, SELFPAY | PROVIDERS: PCP Nurse Practitioner Family; Visit Provider Student in an Organized Health Care Education/Training Program | DX: Z47.89 Encounter for other orthopedic aftercare (principal); L97.526 Non-pressure chronic ulcer of other part of left foot with bone involvement without evidence of necrosis; M86.9 Osteomyelitis, unspecified; E11.621 Type 2 diabetes mellitus with foot ulcer; L97.529 Non-pressure chronic ulcer of other part of left foot with unspecified severity | CPT/HCPCS: 99212 ==